=== PATIENT | male | born 1955 | race Two or more races ===

== ENCOUNTER 2018-04-21 00:56 | Inpatient (IN) | payer MEDICAID ==
[~2018-04-21] VITALS: Ht 165.1 cm; Wt 48.1 kg
[2018-04-21] VITALS (21 sets, daily range): BP systolic 73–130; BP diastolic 36–77
[~2018-04-21 00:56] MED LIST: LANTUS SOL100 UNIT/1 SUBQ
[2018-04-21] MEDS ORDERED: Morphine Sulfate 4mg/ml Inj (IV USE ONLY) IVP ONE (01:30)
--- NOTE | 2018-04-21 01:32 | Emergency Room Report ---
History of Present Illness General Chief Complaint: Flu Like Symptoms Source: Patient Present Illness HPI This is a 62-year-old male with a history of diabetes and high blood pressure. He presents with chief complaint of weakness and left leg pain. He had a hip fracture/femur fracture over a year ago. He has surgery done. Since then he said his been in pain. He complaining of pain to that area. He said Ultram is not helping. Pain is 9 out of 10. Worse with movement. Better with rest. No other complaint. No nausea no vomiting. Allergies: Coded Allergies: No Known Allergies (Unverified , 04/21/18) Patient History Past Medical History: see triage record, old chart reviewed, DM, HTN Past Surgical History: other Pertinent Family History: none Social History: Denies: smoking Immunizations: other Reviewed Nursing Documentation: PMH: Agreed; PSxH: Agreed Nursing Documentation-PMH Past Medical History: No History, Except For Hx Hypertension: Yes Hx Diabetes: Yes Review of Systems Eye: Denies: eye pain, blurred vision ENT: Denies: ear pain, nose congestion, throat swelling Respiratory: Denies: cough, shortness of breath Cardiovascular: Denies: chest pain, palpitations Gastrointestinal: Denies: abdominal pain, diarrhea, nausea, vomiting Musculoskeletal: Reports: joint pain, muscle pain; Denies: back pain Skin: Denies: rash Neurological: Denies: headache, numbness Endocrine: Denies: increased thirst, increased urine Hematologic/Lymphatic: Denies: easy bruising All Other Systems: negative except mentioned in HPI Physical Exam Vital Signs Date Time Temp Pulse Resp B/P (MAP) Pulse Ox O2 Delivery O2 Flow Rate FiO2 04/21/18 00:51 97.5 70 16 156/88 97 Room Air vitals with high blood pressure Sp02 EP Interpretation: reviewed, normal General Appearance: no apparent distress, alert, cachetic, Chronically Ill Head: normocephalic, atraumatic Eyes: bilateral eye PERRL, bilateral eye EOMI ENT: hearing grossly normal, normal pharynx Neck: full range of motion, supple, no meningismus Respiratory: chest non-tender, lungs clear, normal breath sounds Cardiovascular #1: regular rate, rhythm, no murmur Gastrointestinal: normal bowel sounds, non tender, no mass, no organomegaly, no bruit, non-distended Musculoskeletal: back normal, normal range of motion Psychiatric: mood/affect normal Skin: warm/dry Medical Decision Making Diagnostic Impression: Primary Impression: ARF (acute renal failure) Qualified Codes: N17.9 - Acute kidney failure, unspecified Additional Impressions: Weakness generalized Leg pain, left Metabolic acidosis ER Course History with generalize weakness. He has acute renal failure with metabolic acidosis. No evidence of hyperkalemia. No evidence of obvious infection. He looks very dehydrated. No urinary output with Torres. IV fluids given. Patient will be admitted for further workup. I contacted Dr. Cain for admission. Lab Results Impression labs with acute renal failure EKG Diagnostic Results Rate: normal Rhythm: NSR ST Segments: no acute changes Rhythm Strip Diag. Results Rhythm Strip Time: 03:26 EP Interpretation: yes Rate: 85 Rhythm: NSR, no PVC's, no ectopy Chest X-Ray Diagnostic Results Chest X-Ray Diagnostic Results : Chest X-Ray Ordered: Yes # of Views/Limited/Complete: 1 View Indication: Chest Pain EP Interpretation: Yes Interpretation: no consolidation, no effusion, no pneumothorax, no acute cardiopulmonary disease Impression: No acute disease Electronically Signed by: Demetri Douglass MD Last Vital Signs Date Time Temp Pulse Resp B/P (MAP) Pulse Ox O2 Delivery O2 Flow Rate FiO2 04/21/18 00:51 97.5 70 16 156/88 97 Room Air Status: improved Disposition: ADMITTED INPATIENT Condition: Serious Demetri Douglass MD Apr 21, 2018 01:32
[2018-04-21 01:35] LABS: BASOPHILS % (AUTO) 0.8 % (0.0-2.0); EOSINOPHILS % (AUTO) 0.9 % (0.0-3.0); HEMATOCRIT 30.8 % (42.0-52.0); HEMOGLOBIN 10.3 G/DL (14.2-18.0); LYMPHOCYTES % (AUTO) 8.4 % (20.0-45.0); MEAN CORPUSCULAR VOLUME 94 FL (80-99); NEUTROPHILS % (AUTO) 82.9 % (45.0-75.0); PLATELET COUNT 217 K/UL (150-450); RED BLOOD COUNT 3.29 M/UL (4.70-6.10); WHITE BLOOD COUNT 13.5 K/UL (4.8-10.8)
[2018-04-21 01:46] LABS: ANION GAP 18 mmol/L (5-15); BLOOD UREA NITROGEN 60 mg/dL (7-18); CALCIUM 8.8 MG/DL (8.5-10.1); CARBON DIOXIDE 10 MMOL/L (21-32); CHLORIDE 105 MMOL/L (98-107); CREATININE 3.4 MG/DL (0.55-1.30); POTASSIUM 4.7 MMOL/L (3.5-5.1); SODIUM 133 MMOL/L (136-145)
[2018-04-21] MEDS ORDERED: Acetaminophen 500mg (ES) tab ORAL PRN (05:00)
[2018-04-21] MEDS ORDERED: DOPamine 400mg/250ml 250 ML IV SCH (05:30)
--- NOTE | 2018-04-21 05:36 | Emergency Room Report ---
History of Present Illness General Chief Complaint: Flu Like Symptoms Source: Patient Present Illness Allergies: Coded Allergies: No Known Allergies (Unverified , 04/21/18) Nursing Documentation-[facility] Past Medical History: No History, Except For Hx Hypertension: Yes Hx Diabetes: Yes Physical Exam Vital Signs Date Time Temp Pulse Resp B/P (MAP) Pulse Ox O2 Delivery O2 Flow Rate FiO2 04/21/18 00:51 97.5 70 16 156/88 97 Room Air Procedures Critical Care Time Critical Care Time Critical care is mandated in this patient who presented with acute renal failure with hypotension. Patient require my urgent intervention to attenuate the risks of metabolic collapse which may lead to cardiovascular collapse and . Critical care time is 35 minutes excluding any reportable procedure. Critical care time included evaluation, multiple reevaluation, looking at old charts, interpreting laboratory and diagnostic data, discussing case with patient and family and consultants, and charting. Central Line Central Line : Consent: Verbal Central Line Lumen: triple Maximal Sterile Barrier Tech: yes cap, yes mask, yes sterile gown, yes sterile gloves, yes large sterile sheet, yes hand hygiene, yes chlorhexidine prep Central Line Postion: femoral (R) Anesthesia: Lidocaine cc's of anesthesia: 7 Complications: none Central Line Post Position: sutured, good blood return Attempts: One Patient Tolerated: Well Complications: None Progress I place a central line under sterile condition. Initially I wanted a place a internal jugular line but patient refused. He said he would agree to a femoral line. So I place a triple-lumen in the right femoral vein. Patient tolerated procedure without a problem. Medical Decision Making Diagnostic Impression: Primary Impression: ARF (acute renal failure) Qualified Codes: N17.9 - Acute kidney failure, unspecified Additional Impressions: Weakness generalized Metabolic acidosis Leg pain, left Hypovolemic shock ER Course Patient blood pressure continued to drop. No response with IV fluid. He remained with normal oxygenation at 100% on room air. Lungs are clear. I place a central line to start him on dopamine. Patient will be upgraded to ICU. Last Vital Signs Date Time Temp Pulse Resp B/P (MAP) Pulse Ox O2 Delivery O2 Flow Rate FiO2 04/21/18 05:30 76/43 04/21/18 02:02 97.5 04/21/18 01:52 70 16 Room Air 04/21/18 01:52 97 Disposition: ADMITTED INPATIENT Condition: Critical Referrals: NOT CHOSEN IPA/,REFERRING (PCP) Demetri Douglass MD Apr 21, 2018 05:36
[2018-04-21] MEDS ORDERED: Sodium Bicarbonate 150 ML in D5W 1000ml 1,000 ML IV SCH (05:45)
[2018-04-21] MEDS ORDERED: Sodium Bicarbonate 50ml Carp IV ONE (06:00)
[2018-04-21] MEDS ORDERED: Sodium Bicarbonate 8.4% 50ml Inj ONE (06:06)
[2018-04-21] MEDS ORDERED: Sodium Bicarbonate 50ml Carp ONE (06:08)
[2018-04-21] MEDS ORDERED: Morphine Sulfate 2mg/ml Inj(IV/IM USE ONLY) IVP ONE (06:30)
[2018-04-21] MEDS ORDERED: Morphine Sulfate 2mg/ml Inj(IV/IM USE ONLY) ONE ×2 (06:34→06:40)
[2018-04-21 10:13] LABS: HEMOGLOBIN 9.1 G/DL (14.2-18.0); MEAN CORPUSCULAR VOLUME 93 FL (80-99); PLATELET COUNT 166 K/UL (150-450); RED BLOOD COUNT 2.92 M/UL (4.70-6.10); RED CELL DISTRIBUTION WIDTH 12.5 % (11.6-14.8); WHITE BLOOD COUNT 11.8 K/UL (4.8-10.8)
--- NOTE | 2018-04-21 10:54 | Consultation ---
Consult Note Assessment/Plan DICT [id number] Lennox Mcallister MD Apr 21, 2018 10:54
[2018-04-21 11:06] LABS: ALANINE AMINOTRANSFERASE 93 U/L (12-78); ALBUMIN 3.4 G/DL (3.4-5.0); ALBUMIN/GLOBULIN RATIO 1.1 (1.0-2.7); ALKALINE PHOSPHATASE 271 U/L (46-116); ANION GAP 16 mmol/L (5-15); ASPARTATE AMINO TRANSFERASE 115 U/L (15-37); BILIRUBIN,TOTAL 0.9 MG/DL (0.2-1.0); BLOOD UREA NITROGEN 51 mg/dL (7-18); CALCIUM 7.9 MG/DL (8.5-10.1); CARBON DIOXIDE 12 MMOL/L (21-32); CHLORIDE 110 MMOL/L (98-107); CREATININE 2.6 MG/DL (0.55-1.30); POTASSIUM 4.3 MMOL/L (3.5-5.1); SODIUM 137 MMOL/L (136-145)
[2018-04-21] MEDS: NovoLOG Insulin Flexpen SUBQ SCH ×3 (11:30→21:00)
[2018-04-21] MEDS ORDERED: Levophed 4mg/4mL Inj IV ONE (11:48)
[2018-04-21] MEDS ORDERED: Vancomycin 1250mg/D5W 275ml IVPB SCH (12:00)
--- NOTE | 2018-04-21 12:20 | Diagnostic Imaging Report ---
Indication: Dyspnea Comparison: None A single view chest radiograph was obtained. Findings: Cardiomediastinal appearance is within normal limits for age. The lungs are clear. Pulmonary vascularity is appropriate. The diaphragmatic contour is smooth and costophrenic angles are sharp. No pleural effusions are identified. The bones are osteopenic. Impression: No acute findings
[2018-04-21] MEDS: Piperacillin/Tazobactam 3.375 GM in D5W 110 ML IVPB SCH ×2 (14:00→21:14)
--- NOTE | 2018-04-21 14:32 | Diagnostic Imaging Report ---
Indication:Abdominal pain Technique: Grayscale and duplex Doppler imaging of the abdomen performed. Comparison: None Findings: The gallbladder is moderately distended with the fairly marked gallbladder wall thickening and multiple stones. There is also likely a stone in the area of the cystic duct. The CBD is mildly dilated measuring 10 mm. There is evidence of a shadowing focus in the distal CBD region in the level of the head of the pancreas. Findings concerning for choledocholithiasis. Further evaluation of this with MRCP or ERCP is recommended. There is mild ascites present. The main portal vein is patent by Doppler examination. Urinary bladder is distended despite the fact that the patient has a Torres catheter. The Torres catheter is not visualized. Clinical evaluation of this is obviously needed. Some fullness of the collecting system noted at the level of the kidneys bilaterally. This may be on the basis of the distended urinary bladder. Right renal cyst is noted. Aorta is unremarkable. IMPRESSION: Distended urinary bladder. Torres catheter not visualized but present. Clinical evaluation is needed. Recommend removal of the Torres catheter and replacement. Mild pelvocaliectasis noted which is likely on the basis of the distended bladder. Suspected choledocholithiasis with the one or more stones in the distal common bile duct. Moderate biliary ductal dilatation demonstrated. Cholelithiasis with distention of the gallbladder and wall thickening. Cholecystitis not excluded.
--- NOTE | 2018-04-21 16:03 | Consultation ---
History of Present Illness General Date patient seen: Apr 21, 2018 Chief Complaint: Flu Like Symptoms Reason for Consultation: sepsis / cholecystitis Present Illness HPI 62 year old male with multiple medical comorbidities presented with feeling unwell, leg pain, and overall fatigue. Hypotensive, septic, abnormal lft's and labs. US ordered and noted cholecystitis and possible choledocholithiasis. Surgery called to evaluate. patient seen, chart reviewed, patient examined. does have intermittent abd discomfort. no f/c. nausea. no emesis. poor historian Allergies: Coded Allergies: No Known Allergies (Unverified , 04/21/18) Medication History Discontinued Medications Insulin Glargine (Lantus), Unknown Dose SUBQ BEDTIME, (Reported) Discontinued Reason: MD discontinued med Patient History Limited by: medical condition History Provided By: Medical Record, PMD Healthcare decision maker Resuscitation status Full Code Advanced Directive on File Past Medical/Surgical History Past Medical/Surgical History: (1) Acute cholecystitis (2) Hypovolemic shock (3) Weakness generalized (4) Metabolic acidosis (5) Leg pain, left (6) ARF (acute renal failure) (7) Gall bladder stones Review of Systems All Other Systems: negative except mentioned in HPI Physical Exam General Appearance: alert, mild distress Lines, tubes and drains: peripheral HEENT: mucous membranes moist Neck: normal inspection Respiratory/Chest: no respiratory distress, no accessory muscle use Cardiovascular/Chest: tachycardia Abdomen: soft, no organomegaly, no mass, tender Extremities: normal inspection Skin Exam: warm/dry Neurologic: alert, responsive Last 24 Hour Vital Signs Date Time Temp Pulse Resp B/P (MAP) Pulse Ox O2 Delivery O2 Flow Rate FiO2 04/21/18 12:05 97.5 98 17 91/42 100 Room Air 04/21/18 12:00 91/42 04/21/18 11:28 98 17 97/72 100 Room Air 04/21/18 11:00 114/54 04/21/18 10:08 118/67 04/21/18 10:08 97.5 102 14 118/67 100 Room Air 04/21/18 08:50 105 16 130/64 100 Room Air 04/21/18 08:50 130/64 04/21/18 07:45 97.5 104 14 124/54 100 Room Air 04/21/18 07:45 124/54 04/21/18 07:14 130/55 04/21/18 07:14 97.5 108 13 130/55 100 Room Air 04/21/18 07:05 97.5 04/21/18 06:58 97.5 107 18 128/56 97 Room Air 04/21/18 06:49 128/56 04/21/18 06:34 117/57 04/21/18 06:29 134/55 04/21/18 06:14 124/57 04/21/18 06:02 97.5 75 18 124/57 97 Room Air 04/21/18 05:59 130/56 04/21/18 05:41 90/51 04/21/18 05:30 76/43 04/21/18 05:00 97.5 75 17 73/43 97 Room Air 04/21/18 04:30 97.5 75 16 76/36 97 Room Air 04/21/18 02:20 97.5 77 16 87/50 97 Room Air 04/21/18 02:02 97.5 04/21/18 01:52 70 16 Room Air 04/21/18 01:52 97.5 75 16 87/69 97 Room Air 04/21/18 00:51 97.5 70 16 156/88 97 Room Air Intake and Output 04/20/18 04/21/18 19:00 07:00 Intake Total 1000 ml Balance 1000 ml Intake Oral 0 ml IV Total 1000 ml Laboratory Tests Test 04/21/18 00:55 04/21/18 10:00 04/21/18 12:15 White Blood Count 13.5 K/UL (4.8-10.8) H 11.8 K/UL (4.8-10.8) H Red Blood Count 3.29 M/UL (4.70-6.10) L 2.92 M/UL (4.70-6.10) L Hemoglobin 10.3 G/DL (14.2-18.0) L 9.1 G/DL (14.2-18.0) L Hematocrit 30.8 % (42.0-52.0) L 27.0 % (42.0-52.0) L Mean Corpuscular Volume 94 FL (80-99) 93 FL (80-99) Mean Corpuscular Hemoglobin 31.4 PG (27.0-31.0) H 31.2 PG (27.0-31.0) H Mean Corpuscular Hemoglobin Concent 33.5 G/DL (32.0-36.0) 33.8 G/DL (32.0-36.0) Red Cell Distribution Width 13.0 % (11.6-14.8) 12.5 % (11.6-14.8) Platelet Count 217 K/UL (150-450) 166 K/UL (150-450) Mean Platelet Volume 9.4 FL (6.5-10.1) 8.5 FL (6.5-10.1) Neutrophils (%) (Auto) 82.9 % (45.0-75.0) H % (45.0-75.0) Lymphocytes (%) (Auto) 8.4 % (20.0-45.0) L % (20.0-45.0) Monocytes (%) (Auto) 7.0 % (1.0-10.0) % (1.0-10.0) Eosinophils (%) (Auto) 0.9 % (0.0-3.0) % (0.0-3.0) Basophils (%) (Auto) 0.8 % (0.0-2.0) % (0.0-2.0) Sodium Level 133 MMOL/L (136-145) L 137 MMOL/L (136-145) Potassium Level 4.7 MMOL/L (3.5-5.1) 4.3 MMOL/L (3.5-5.1) Chloride Level 105 MMOL/L (98-107) 110 MMOL/L (98-107) H Carbon Dioxide Level 10 MMOL/L (21-32) L 12 MMOL/L (21-32) L Anion Gap 18 mmol/L (5-15) H 16 mmol/L (5-15) H Blood Urea Nitrogen 60 mg/dL (7-18) H 51 mg/dL (7-18) H Creatinine 3.4 MG/DL (0.55-1.30) H 2.6 MG/DL (0.55-1.30) H Estimat Glomerular Filtration Rate 18.4 mL/min (>60) 25.1 mL/min (>60) Glucose Level 148 MG/DL (74-106) H 178 MG/DL (74-106) H Calcium Level 8.8 MG/DL (8.5-10.1) 7.9 MG/DL (8.5-10.1) L Troponin I 0.000 ng/mL (0.000-0.056) 0.020 ng/mL (0.000-0.056) Serum Alcohol < 3 mg/dL Differential Total Cells Counted 100 Neutrophils % (Manual) 85 % (45-75) H Lymphocytes % (Manual) 6 % (20-45) L Monocytes % (Manual) 6 % (1-10) Eosinophils % (Manual) 1 % (0-3) Basophils % (Manual) 0 % (0-2) Band Neutrophils 2 % (0-8) Platelet Estimate Adequate Platelet Morphology Normal Red Blood Cell Morphology Normal Hemoglobin A1c 7.0 % (4.3-6.0) H Total Bilirubin 0.9 MG/DL (0.2-1.0) Aspartate Amino Transf (AST/SGOT) 115 U/L (15-37) H Alanine Aminotransferase (ALT/SGPT) 93 U/L (12-78) H Alkaline Phosphatase 271 U/L (46-116) H Total Protein 6.6 G/DL (6.4-8.2) Albumin 3.4 G/DL (3.4-5.0) Globulin 3.2 g/dL Albumin/Globulin Ratio 1.1 (1.0-2.7) Thyroid Stimulating Hormone (TSH) 0.797 uiU/mL (0.358-3.740) Cortisol Pending Lactic Acid Level 1.10 mmol/L (0.4-2.0) Height (Feet): 5 Height (Inches): 8.00 Weight (Pounds): 140 Medications Current Medications Medications (Trade) Dose Ordered Sig/Jamal Route PRN Reason Start Time Stop Time Status Last Admin Dose Admin Acetaminophen (Tylenol) 500 mg Q4H PRN ORAL Mild Pain/Temp > 100.5 04/21/18 05:00 05/21/18 04:59 Dextrose 1,000 ml @ 100 mls/hr Q10H IV 04/21/18 06:00 05/21/18 05:59 04/21/18 06:09 Dextrose (Dextrose 50%) 25 ml Q30M PRN IV Hypoglycemia 04/21/18 11:00 05/21/18 10:59 Dextrose (Dextrose 50%) 50 ml Q30M PRN IV Hypoglycemia 04/21/18 11:00 05/21/18 10:59 Dopamine HCl/ Dextrose 250 ml @ 0 mls/hr Q24H IV 04/21/18 05:30 05/21/18 05:29 04/21/18 05:30 Insulin Aspart (NovoLOG) BEFORE MEALS AND HS SUBQ 04/21/18 11:30 05/21/18 11:29 Norepinephrine Bitartrate 4 mg/ Dextrose 246 ml @ 7.38 mls/hr Q24H IV 04/21/18 12:00 05/21/18 11:59 04/21/18 12:00 Pantoprazole (Protonix) 40 mg DAILY IVP 04/22/18 09:00 05/22/18 08:59 Piperacillin Sod/ Tazobactam Sod 3.375 gm/Dextrose 110 ml @ 27.5 mls/hr EVERY 8 HOURS IVPB 04/21/18 14:00 04/26/18 13:59 Sodium Chloride 1,000 ml @ 80 mls/hr [id number] IV 04/21/18 06:00 05/21/18 05:59 Sodium Chloride 1,000 ml @ 150 mls/hr Q6H40M IV 04/21/18 11:00 05/21/18 10:59 Vancomycin HCl (Vanco rx to dose) 1 ea DAILY PRN MISC Per rx protocol 04/21/18 11:00 05/21/18 10:59 Assessment/Plan Problem List: (1) Acute cholecystitis Assessment & Plan: US with Distended urinary bladder. Torres catheter not visualized but present. Clinical evaluation is needed. Recommend removal of the Torres catheter and replacement. Mild pelvocaliectasis noted which is likely on the basis of the distended bladder. Suspected choledocholithiasis with the one or more stones in the distal common bile duct. Moderate biliary ductal dilatation demonstrated. Cholelithiasis with distention of the gallbladder and wall thickening. Leukocytosis Hypotensive shock Abnormal LFT's. Possible choledocholithiasis -NPO -IV fluids -IV Abx -MRCP ordered -Trend labs -thank you for this consult. will follow with recs. ICD Codes: K81.0 - Acute cholecystitis SNOMED: 93035520 (2) Hypovolemic shock ICD Codes: R57.1 - Hypovolemic shock SNOMED: [id number] Martin Sterling Apr 21, 2018 16:03
--- NOTE | 2018-04-21 17:00 | Consultation ---
DATE OF CONSULTATION: 04/21/2018 CRITICAL CARE CONSULTATION: CONSULTING PHYSICIAN: Lennox Mcallister M.D. REFERRING PHYSICIAN: Oksana Casey M.D. REASON FOR CONSULTATION: Critical care management. HISTORY OF PRESENT ILLNESS: The patient is a 62-year-old male with a history of diabetes, hypertension, vasculopathy, likely CKD who presented with generalized weakness and left leg pain. He had a hip fracture over a year ago and has had toe amputations and a TMA. Upon arrival to the emergency department, he was afebrile, but hypotensive. His laboratory evaluation was noticeable for a leukocytosis, anemia, abnormal BUN and creatinine. He is being treated for presumed sepsis. He has had no urine output. Per report, his chest x-ray was within normal limits though I have not been able to load the image on PACS myself. The patient remained hypotensive despite 3 L. Declined an IJ line, so agreed to a femoral line. A femoral central venous catheter was placed by the ER physician and he is currently on 2 mcg of norepinephrine. He feels his pain has improved. No other complaints. No fevers, chills, headaches, chest pain, nausea, vomiting, diarrhea, constipation, abdominal pain, or urinary complaints other than anuria. PAST MEDICAL HISTORY: 1. Diabetes. 2. Hypertension. 3. CKD. PAST SURGICAL HISTORY: TMAs and toe amputations as well as hip surgery. ALLERGIES: No known drug allergies. MEDICATIONS: Prior to admission medications unknown. SOCIAL HISTORY: Denies tobacco, alcohol, or drug use. FAMILY HISTORY: Noncontributory. REVIEW OF SYSTEMS: Unobtainable. PHYSICAL EXAMINATION: VITAL SIGNS: Temperature 97.5, pulse 104, blood pressure 122/54, respiratory rate 14, and saturating 100% on room air. GENERAL: He is a frail male appearing his stated age, in no distress HEENT: Normocephalic and atraumatic. Oropharynx is clear. Dry mucous membranes. NECK: Supple without lymphadenopathy. CHEST: Clear. HEART: Regular. ABDOMEN: Benign. EXTREMITIES: Evidence of rough turgor of skin and TMA and toe amputations contralaterally. LABORATORY AND DIAGNOSTIC DATA: White count 13.5, hemoglobin 10.3, platelet count 217. Sodium 133, potassium 4.7, chloride 105, bicarb 10, gap 18, BUN 60, creatinine 3.4, glucose 148. Alcohol less than 3. Urinalysis unavailable. Chest x-ray, unobtainable per report. ASSESSMENT: The patient is a 62-year-old male with a history of diabetes, hypertension, vasculopathy, likely CKD presenting with leg pain in the setting of dehydration and anion gap metabolic acidosis, likely sepsis. He is hypotensive with profound volume depletion. PROBLEM LIST: 1. Shock, hypovolemic. 2. Dehydration. 3. Likely sepsis. 4. Leg pain. 5. JONA likely on CKD. 6. Anion-gap metabolic acidosis. 7. Hyponatremia. 8. Leukocytosis. 9. Anemia. 10. Diabetes. 11. History of hypertension. 12. History of hip fracture. 13. History of vasculopathy. 14. Toe amputations and TMA. TREATMENT PLAN: 1. Aggressive IV fluid hydration. 2. Titrate pressors to keep mean arterial pressure above 60. 3. Would start broad-spectrum antibiotics (vancomycin and Zosyn). 4. Panculture. 5. Urinalysis once the patient is able to provide urine. 6. Duplex of the lower extremities. 7. Trend lactic acid and troponins. 8. Echocardiogram. 9. DVT prophylaxis heparin subcutaneous. 10. Swallow evaluation. 11. Monitor mental status closely. 12. If the patient stabilizes hemodynamically in the emergency room and is able to be weaned off of pressors with additional IV fluid hydration, he will be stable for step-down unit or telemetry. 60 minutes critical care time spent in the care of this patient. Lennox Mcallister M.D. DR: ROSMERY JOB#: [id number] CC:
--- NOTE | 2018-04-21 17:15 | Consultation ---
DATE OF CONSULTATION: 04/21/2017 INFECTIOUS DISEASE CONSULTATION CONSULTING PHYSICIAN: Thai Hale M.D. PRIMARY ATTENDING PHYSICIAN: Oksana Casey M.D. REASON FOR REQUEST: Sepsis. HISTORY OF PRESENT ILLNESS: The patient is a 62-year-old male admitted today from home complaining of weakness and pain in the left leg. The patient had a fall at home. In the hospital, it was discovered that the patient is hypotensive and tachycardic. The patient is admitted to intensive care unit, was on pressor, currently is off pressor. PAST MEDICAL HISTORY: Significant for diabetes mellitus and hypertension. 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 MEDICATIONS: Zosyn, vancomycin, norepinephrine, insulin, sodium chloride, Tylenol, and dopamine. ALLERGIES: No known drug allergies. SOCIAL HISTORY: Denies alcohol, drug abuse, or smoking. . REVIEW OF SYSTEMS: Generalized weakness, pain in the left lower extremity, and subjective fever, but afebrile in the hospital. No significant coughing. No nausea. No vomiting. No diarrhea. No problem passing urine, but urination is decreased. PHYSICAL EXAMINATION: VITAL SIGNS: Temperature 97.5, blood pressure 91/43, and pulse 98. GENERAL APPEARANCE: Seems to be thin. HEAD AND NECK: [place] conjunctiva. HEART: Normal rate. LUNGS: Clear. ABDOMEN: Soft and nontender. EXTREMITIES: He has no edema. Has right tarsometatarsal amputation and left big toe amputation. DIAGNOSTIC DATA: Chest x-ray showed no acute finding. WBC is 11.8 coming down from 13.5 at the time of admission, hemoglobin 9.1, hematocrit 27, and platelets is 166,000. Sodium 137, potassium 4.3, chloride 110, bicarb 12, BUN 51, and creatinine 2.6. Lactic acid is 7. Bilirubin 0.9. AST 115, ALT 93, and alkaline phosphatase 271. IMPRESSION: 1. Sepsis with tachycardia. 2. Hypotension. 3. Leukocytosis. Source is not clear. 4. The patient seems to have acute renal failure. 5. Elevated transaminase. 6. Diabetes mellitus. 7. Hypertension. 8. Lactic acidosis. RECOMMENDATIONS: We will continue broad-spectrum antibiotic with vancomycin and Zosyn for now. We will follow up the culture. We will order abdominal ultrasound to rule out urinary obstruction and liver disease. At the end of my exam, I thank Dr. Casey for involving me in the care of this patient. Thai Hale M.D. DR: JULIUS JOB#: [id number] CC:
--- NOTE | 2018-04-21 17:57 | Cardiology Report ---
APPROVED REPORT EKG Measurement Heart [id number] Normal sinus rhythm Septal infarct, age undetermined Abnormal ECG
[2018-04-21] MEDS: D5NS 1,000 ML IV SCH (18:30)
--- NOTE | 2018-04-21 18:40 | Consultation ---
Consult Note Consult Note asked to eval for high Cr This is a 62-year-old male with a history of diabetes and high blood pressure. He presents with chief complaint of weakness and left leg pain. He had a hip fracture/femur fracture over a year ago. He has surgery done. Since then he said his been in pain. He complaining of pain to that area. He said Ultram is not helping. Pain is 9 out of 10. Worse with movement. Better with rest. No other complaint. No nausea no vomiting. No Known Allergies (Unverified , 04/21/18) Past Medical History: No History, Except For Hx Hypertension: Yes Hx Diabetes: Yes in ICU Hypotensive data reviewed Assessment/Plan Hypovolemic Shock ATN Anemia Gall stones with cholecystitis left leg pain DM TMA foot, PVD HTN by history Torres Hydrate surgical and GI eval eval Antibiotics Orlin Berrios MD Apr 21, 2018 18:40
--- NOTE | 2018-04-21 21:25 | Cardiology Progress Note ---
Assessment/Plan Assessment/Plan The patient is seen and examined, full consult note will be dictated. Objective Last 24 Hour Vital Signs Date Time Temp Pulse Resp B/P (MAP) Pulse Ox O2 Delivery O2 Flow Rate FiO2 04/21/18 19:00 95 119/77 (91) 04/21/18 18:00 83 103/59 (74) 04/21/18 16:00 85 04/21/18 16:00 98.2 83 97/55 (69) 04/21/18 15:00 86 103/59 (74) 04/21/18 14:00 90 109/55 (73) 04/21/18 13:30 Room Air 04/21/18 13:00 98.0 93 99/57 (71) 04/21/18 12:11 Room Air 04/21/18 12:05 97.5 98 17 91/42 100 Room Air 04/21/18 12:00 91/42 04/21/18 11:28 98 17 97/72 100 Room Air 04/21/18 11:00 114/54 04/21/18 10:08 118/67 04/21/18 10:08 97.5 102 14 118/67 100 Room Air 04/21/18 08:50 105 16 130/64 100 Room Air 04/21/18 08:50 130/64 04/21/18 07:45 97.5 104 14 124/54 100 Room Air 04/21/18 07:45 124/54 04/21/18 07:14 130/55 04/21/18 07:14 97.5 108 13 130/55 100 Room Air 04/21/18 07:05 97.5 04/21/18 06:58 97.5 107 18 128/56 97 Room Air 04/21/18 06:49 128/56 04/21/18 06:34 117/57 04/21/18 06:29 134/55 04/21/18 06:14 124/57 04/21/18 06:02 97.5 75 18 124/57 97 Room Air 04/21/18 05:59 130/56 04/21/18 05:41 90/51 04/21/18 05:30 76/43 04/21/18 05:00 97.5 75 17 73/43 97 Room Air 04/21/18 04:30 97.5 75 16 76/36 97 Room Air 04/21/18 02:20 97.5 77 16 87/50 97 Room Air 04/21/18 02:02 97.5 04/21/18 01:52 70 16 Room Air 04/21/18 01:52 97.5 75 16 87/69 97 Room Air 04/21/18 00:51 97.5 70 16 156/88 97 Room Air Intake and Output 04/20/18 04/21/18 18:59 06:59 Intake Total 1000 ml Balance 1000 ml Intake Oral 0 ml IV Total 1000 ml Laboratory Tests Test 04/21/18 00:55 04/21/18 10:00 04/21/18 12:15 White Blood Count 13.5 K/UL (4.8-10.8) H 11.8 K/UL (4.8-10.8) H Red Blood Count 3.29 M/UL (4.70-6.10) L 2.92 M/UL (4.70-6.10) L Hemoglobin 10.3 G/DL (14.2-18.0) L 9.1 G/DL (14.2-18.0) L Hematocrit 30.8 % (42.0-52.0) L 27.0 % (42.0-52.0) L Mean Corpuscular Volume 94 FL (80-99) 93 FL (80-99) Mean Corpuscular Hemoglobin 31.4 PG (27.0-31.0) H 31.2 PG (27.0-31.0) H Mean Corpuscular Hemoglobin Concent 33.5 G/DL (32.0-36.0) 33.8 G/DL (32.0-36.0) Red Cell Distribution Width 13.0 % (11.6-14.8) 12.5 % (11.6-14.8) Platelet Count 217 K/UL (150-450) 166 K/UL (150-450) Mean Platelet Volume 9.4 FL (6.5-10.1) 8.5 FL (6.5-10.1) Neutrophils (%) (Auto) 82.9 % (45.0-75.0) H % (45.0-75.0) Lymphocytes (%) (Auto) 8.4 % (20.0-45.0) L % (20.0-45.0) Monocytes (%) (Auto) 7.0 % (1.0-10.0) % (1.0-10.0) Eosinophils (%) (Auto) 0.9 % (0.0-3.0) % (0.0-3.0) Basophils (%) (Auto) 0.8 % (0.0-2.0) % (0.0-2.0) Sodium Level 133 MMOL/L (136-145) L 137 MMOL/L (136-145) Potassium Level 4.7 MMOL/L (3.5-5.1) 4.3 MMOL/L (3.5-5.1) Chloride Level 105 MMOL/L (98-107) 110 MMOL/L (98-107) H Carbon Dioxide Level 10 MMOL/L (21-32) L 12 MMOL/L (21-32) L Anion Gap 18 mmol/L (5-15) H 16 mmol/L (5-15) H Blood Urea Nitrogen 60 mg/dL (7-18) H 51 mg/dL (7-18) H Creatinine 3.4 MG/DL (0.55-1.30) H 2.6 MG/DL (0.55-1.30) H Estimat Glomerular Filtration Rate 18.4 mL/min (>60) 25.1 mL/min (>60) Glucose Level 148 MG/DL (74-106) H 178 MG/DL (74-106) H Calcium Level 8.8 MG/DL (8.5-10.1) 7.9 MG/DL (8.5-10.1) L Troponin I 0.000 ng/mL (0.000-0.056) 0.020 ng/mL (0.000-0.056) Serum Alcohol < 3 mg/dL Differential Total Cells Counted 100 Neutrophils % (Manual) 85 % (45-75) H Lymphocytes % (Manual) 6 % (20-45) L Monocytes % (Manual) 6 % (1-10) Eosinophils % (Manual) 1 % (0-3) Basophils % (Manual) 0 % (0-2) Band Neutrophils 2 % (0-8) Platelet Estimate Adequate Platelet Morphology Normal Red Blood Cell Morphology Normal Hemoglobin A1c 7.0 % (4.3-6.0) H Total Bilirubin 0.9 MG/DL (0.2-1.0) Aspartate Amino Transf (AST/SGOT) 115 U/L (15-37) H Alanine Aminotransferase (ALT/SGPT) 93 U/L (12-78) H Alkaline Phosphatase 271 U/L (46-116) H C-Reactive Protein, Quantitative 2.2 mg/dL (0.00-0.90) H Total Protein 6.6 G/DL (6.4-8.2) Albumin 3.4 G/DL (3.4-5.0) Globulin 3.2 g/dL Albumin/Globulin Ratio 1.1 (1.0-2.7) Thyroid Stimulating Hormone (TSH) 0.797 uiU/mL (0.358-3.740) Cortisol Pending Lactic Acid Level 1.10 mmol/L (0.4-2.0) Alvaro Hargrove MD Apr 21, 2018 21:25
[2018-04-22] VITALS (24 sets, daily range): BP systolic 89–117; BP diastolic 38–60
--- NOTE | 2018-04-22 00:15 | History and Physical Report ---
DATE OF ADMISSION: 04/21/2018 NOTE: "POOR AUDIO QUALITY" HISTORY OF PRESENT ILLNESS: The patient is admitted to ICU for hypotensive getting IV boluses and acute renal failure had started as well. Denies chills. Denies nausea or vomiting and did have diarrhea. Also, complaining of foot pain. PAST MEDICAL HISTORY: No medical problems that he is complaining of. 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 ALLERGIES: No known allergies. MEDICATIONS: None. FAMILY HISTORY: Noncontributory. SOCIAL HISTORY: Denies smoking, alcohol, or illicit drugs. REVIEW OF SYSTEMS: HEENT: Denies headaches. RESPIRATORY: Denies shortness of breath. Denies cough. CARDIOVASCULAR: Denies chest pain. No orthopnea. GASTROINTESTINAL: Reports diarrhea and abdominal pain. Does have some bouts of vomiting. EXTREMITIES: Denies pain in lower extremities. CENTRAL NERVOUS SYSTEM: No change in vision or speech pattern. PHYSICAL EXAMINATION: VITAL SIGNS: Temperature 98.2, pulse is 83, and blood pressure 97/55. HEENT: PERRLA. NECK: Supple. No lymphadenopathy. CHEST: Clear to auscultation. CARDIOVASCULAR: Regular rate and rhythm. No murmurs or extra sounds. GASTROINTESTINAL: Soft, nontender, and nondistended. No organomegaly. EXTREMITIES: The patient is on cachectic side. Reflexes on both sides and moves extremities. LABORATORY DATA: WBC of 13.5, hemoglobin 10.3, and platelets 317,000. ASSESSMENT: Acute renal failure despite fluid challenges. I feel this is most likely due to renal failure, diarrhea, vomiting, and foot pain. I have consulted Dr. Hargrove, Dr. Berrios, Dr. Mcallister, and Dr. Thai Hale of Infectious Disease. IV antibiotics recommended per Dr. Thai Hale and we will have Dr. Berrios and Dr. Hargrove to help with fluid management as well as further management of the hypertension and with acute renal failure. Oksana Casey M.D. DR: MECHELLE JOB#: [id number] CC:
[2018-04-22] MEDS: D5NS 1,000 ML IV SCH ×2 (01:58→07:50)
[2018-04-22] MEDS: NovoLOG Insulin Flexpen SUBQ SCH ×4 (05:38→21:00)
[2018-04-22] MEDS: Piperacillin/Tazobactam 3.375 GM in D5W 110 ML IVPB SCH ×3 (05:39→21:50)
[2018-04-22 05:48] LABS: HEMATOCRIT 23.2 % (42.0-52.0); HEMOGLOBIN 7.9 G/DL (14.2-18.0); MEAN CORPUSCULAR VOLUME 94 FL (80-99); PLATELET COUNT 131 K/UL (150-450); RED BLOOD COUNT 2.48 M/UL (4.70-6.10); RED CELL DISTRIBUTION WIDTH 13.1 % (11.6-14.8); WHITE BLOOD COUNT 11.7 K/UL (4.8-10.8)
[2018-04-22 05:53] LABS: INR 1.4 (0.9-1.1)
[2018-04-22 06:04] LABS: BILIRUBIN, URINE NEGATIVE (NEGATIVE); GLUCOSE, URINE (UA) NEGATIVE (NEGATIVE); KETONES,URINE NEGATIVE (NEGATIVE); NITRITE,URINE NEGATIVE (NEGATIVE); PH,URINE 5 (4.5-8.0); PROTEIN,URINE 3+ (NEGATIVE); UROBILINOGEN,URINE NORMAL MG/DL (0.0-1.0)
[2018-04-22 06:15] LABS: APPEARANCE,URINE CLOUDY; COLOR,URINE YELLOW; LEUKOCYTE ESTERASE ,URINE 2+ (NEGATIVE)
[2018-04-22 06:39] LABS: ALANINE AMINOTRANSFERASE 62 U/L (12-78); ALBUMIN 2.6 G/DL (3.4-5.0); ALBUMIN/GLOBULIN RATIO 0.9 (1.0-2.7); ALKALINE PHOSPHATASE 188 U/L (46-116); ANION GAP 12 mmol/L (5-15); ASPARTATE AMINO TRANSFERASE 77 U/L (15-37); BILIRUBIN,TOTAL 0.4 MG/DL (0.2-1.0); BLOOD UREA NITROGEN 46 mg/dL (7-18); CALCIUM 7.5 MG/DL (8.5-10.1); CARBON DIOXIDE 14 MMOL/L (21-32); CHLORIDE 113 MMOL/L (98-107); CHOLESTEROL 77 MG/DL (< 200); CREATININE 2.2 MG/DL (0.55-1.30); FERRITIN 285 NG/ML (8-388); HDL CHOLESTEROL 44 MG/DL (40-60); POTASSIUM 3.9 MMOL/L (3.5-5.1); SODIUM 139 MMOL/L (136-145); TRIGLYCERIDES 55 MG/DL (30-150)
[2018-04-22 06:40] LABS: % IRON SATURATION 19 % (15-50); IRON 27 ug/dL (50-175); TOTAL IRON BINDING CAPACITY 145 ug/dL (250-450)
[2018-04-22 06:42] LABS: AMYLASE 990 U/L (25-115)
[2018-04-22 06:50] LABS: CREATINE KINASE 1723 U/L (26-308); GAMMA GLUTAMYL TRANSPEPTIDASE 134 U/L (5-85); PHOSPHORUS 4.1 MG/DL (2.5-4.9)
--- NOTE | 2018-04-22 08:44 | Pulmonolgy Critical Care Note ---
Critical Care - Asmt/Plan Problems: (1) Anemia (2) Dehydration (3) JONA (acute kidney injury) (4) Choledocholithiasis with acute cholecystitis (5) Gallstone pancreatitis (6) Metabolic acidosis (7) Hypovolemic shock (8) Leg pain, left Assessment/Plan: ASSESSMENT: The patient is a 62-year-old male with a history of diabetes, hypertension, vasculopathy, likely CKD presenting with leg pain in the setting of dehydration and anion gap metabolic acidosis, likely sepsis. He is hypotensive with profound volume depletion. His w/u is consistent with gallstone pancreatitis and likely acute cholecystitis/choledocholithiasis PROBLEM LIST: 1. Shock, hypovolemic. 2. Gallstone pancreatitis 3. Acute cholelithiasis, possible choledocholithiasis 4. Leg pain. 5. JONA likely on CKD. 6. Anion-gap metabolic acidosis. 7. Leukocytosis. 8. Anemia. 9. Diabetes. 10. History of hypertension. 11. History of hip fracture. 12. History of vasculopathy. 13. Toe amputations and TMA. TREATMENT PLAN: 1. Aggressive IV fluid hydration. 2. Titrate NE to keep mean arterial pressure above 60. 3. Continue broad-spectrum antibiotics (vancomycin and Zosyn D #2). 4. F/U Cx's 5. Bowel rest, NPO, IVF 6. Duplex of the lower extremities negative, arterial US pending still 7. F/U surgery recs, D/W Dr. Sterling: medical management for now 8. Monitor volumes and renal function 9. DVT prophylaxis heparin subcutaneous. 10. SSI, monitor BS 11. FC CCT 40 Respiratory: monitor respiratory rate Cardiac: continue pressors Renal: keep IV fluid Infectious Disease: continue antibiotics Gastrointestinal: hold feedings Endocrine: monitor blood sugar, continue sliding scale insulin Hematologic: monitor H/H Neurologic: keep patient comfortable Prophylaxis: Protonix, Heparin Disposition: keep in ICU Time Spent (Minutes): 40 Notes Reviewed: bid analyst, renal, other - Surgery Discussed with: nurses, consultants Critical Care - Objective Last 24 Hour Vital Signs Date Time Temp Pulse Resp B/P (MAP) Pulse Ox O2 Delivery O2 Flow Rate FiO2 04/22/18 06:00 70 15 89/38 (55) 100 04/22/18 05:00 97.9 72 16 89/52 (64) 100 04/22/18 04:00 72 2/7/19 04:00 Room Air 04/22/18 04:00 73 15 97/53 (68) 100 04/22/18 03:00 68 16 101/46 (64) 99 04/22/18 02:00 72 14 96/50 (65) 99 04/22/18 01:00 98.4 73 14 96/55 (69) 100 04/22/18 00:00 76 15 92/47 (62) 100 04/22/18 00:00 76 04/22/18 00:00 Room Air 04/21/18 23:00 77 15 94/42 (59) 100 04/21/18 22:00 78 14 89/41 (57) 100 04/21/18 21:00 78 16 97/59 (72) 100 04/21/18 20:00 79 04/21/18 20:00 98.5 80 16 105/53 (70) 100 04/21/18 20:00 Room Air 04/21/18 19:00 95 119/77 (91) 04/21/18 18:00 83 103/59 (74) 04/21/18 16:00 85 04/21/18 16:00 98.2 83 97/55 (69) 04/21/18 15:00 86 103/59 (74) 04/21/18 14:00 90 109/55 (73) 04/21/18 13:30 Room Air 04/21/18 13:00 98.0 93 99/57 (71) 04/21/18 12:11 Room Air 04/21/18 12:05 97.5 98 17 91/42 100 Room Air 04/21/18 12:00 91/42 04/21/18 11:28 98 17 97/72 100 Room Air 04/21/18 11:00 114/54 04/21/18 10:08 118/67 04/21/18 10:08 97.5 102 14 118/67 100 Room Air 04/21/18 08:50 105 16 130/64 100 Room Air 04/21/18 08:50 130/64 Status: awake Condition: improving HEENT: atraumatic, normocephalic Lungs: clear Heart: HR/BP unstable Abdomen: soft, non-tender, active bowel sounds Extremities: no C/C/E, other - toe amps and TMA Accucheck: 201 Blood Sugars: BS not controlled Critical Care - Subjective ROS Limited/Unobtainable: Yes ICU Day: 2 Intubation Day: N/A Interval Events: GS panc, elevated lip/jennifer, Cr better Condition: critical IV Access: central EKG Rhythm: Sinus Rhythm Sputum Amount: None Fluids: D5NS@150 Drips: NE@5 I&O: Intake and Output 04/21/18 04/22/18 19:00 07:00 Intake Total 1737.5 ml Output Total 100 ml Balance 1637.5 ml IV Total 1737.5 ml Output Urine Total 100 ml # Voids 1 Subjective: Better, less pain, no F/C, no CP, no SOB Labs: Laboratory Tests Test 04/21/18 10:00 04/21/18 12:15 04/22/18 03:25 04/22/18 05:00 White Blood Count 11.8 K/UL (4.8-10.8) H 11.7 K/UL (4.8-10.8) H Red Blood Count 2.92 M/UL (4.70-6.10) L 2.48 M/UL (4.70-6.10) L Hemoglobin 9.1 G/DL (14.2-18.0) L 7.9 G/DL (14.2-18.0) L Hematocrit 27.0 % (42.0-52.0) L 23.2 % (42.0-52.0) L Mean Corpuscular Volume 93 FL (80-99) 94 FL (80-99) Mean Corpuscular Hemoglobin 31.2 PG (27.0-31.0) H 31.8 PG (27.0-31.0) H Mean Corpuscular Hemoglobin Concent 33.8 G/DL (32.0-36.0) 33.9 G/DL (32.0-36.0) Red Cell Distribution Width 12.5 % (11.6-14.8) 13.1 % (11.6-14.8) Platelet Count 166 K/UL (150-450) 131 K/UL (150-450) L Mean Platelet Volume 8.5 FL (6.5-10.1) 9.6 FL (6.5-10.1) Neutrophils (%) (Auto) % (45.0-75.0) % (45.0-75.0) Lymphocytes (%) (Auto) % (20.0-45.0) % (20.0-45.0) Monocytes (%) (Auto) % (1.0-10.0) % (1.0-10.0) Eosinophils (%) (Auto) % (0.0-3.0) % (0.0-3.0) Basophils (%) (Auto) % (0.0-2.0) % (0.0-2.0) Differential Total Cells Counted 100 Neutrophils % (Manual) 85 % (45-75) H Pending Lymphocytes % (Manual) 6 % (20-45) L Pending Monocytes % (Manual) 6 % (1-10) Eosinophils % (Manual) 1 % (0-3) Basophils % (Manual) 0 % (0-2) Band Neutrophils 2 % (0-8) Platelet Estimate Adequate Pending Platelet Morphology Normal Pending Red Blood Cell Morphology Normal Sodium Level 137 MMOL/L (136-145) 139 MMOL/L (136-145) Potassium Level 4.3 MMOL/L (3.5-5.1) 3.9 MMOL/L (3.5-5.1) Chloride Level 110 MMOL/L (98-107) H 113 MMOL/L (98-107) H Carbon Dioxide Level 12 MMOL/L (21-32) L 14 MMOL/L (21-32) L Anion Gap 16 mmol/L (5-15) H 12 mmol/L (5-15) Blood Urea Nitrogen 51 mg/dL (7-18) H 46 mg/dL (7-18) H Creatinine 2.6 MG/DL (0.55-1.30) H 2.2 MG/DL (0.55-1.30) H Estimat Glomerular Filtration Rate 25.1 mL/min (>60) 30.5 mL/min (>60) Glucose Level 178 MG/DL (74-106) H 193 MG/DL (74-106) H Hemoglobin A1c 7.0 % (4.3-6.0) H Calcium Level 7.9 MG/DL (8.5-10.1) L 7.5 MG/DL (8.5-10.1) L Total Bilirubin 0.9 MG/DL (0.2-1.0) 0.4 MG/DL (0.2-1.0) Aspartate Amino Transf (AST/SGOT) 115 U/L (15-37) H 77 U/L (15-37) H Alanine Aminotransferase (ALT/SGPT) 93 U/L (12-78) H 62 U/L (12-78) Alkaline Phosphatase 271 U/L (46-116) H 188 U/L (46-116) H Troponin I 0.020 ng/mL (0.000-0.056) C-Reactive Protein, Quantitative 2.2 mg/dL (0.00-0.90) H Total Protein 6.6 G/DL (6.4-8.2) 5.6 G/DL (6.4-8.2) L Albumin 3.4 G/DL (3.4-5.0) 2.6 G/DL (3.4-5.0) L Globulin 3.2 g/dL 3.0 g/dL Albumin/Globulin Ratio 1.1 (1.0-2.7) 0.9 (1.0-2.7) L Thyroid Stimulating Hormone (TSH) 0.797 uiU/mL (0.358-3.740) Cortisol Pending Lactic Acid Level 1.10 mmol/L (0.4-2.0) Urine Color Yellow Urine Appearance Cloudy Urine pH 5 (4.5-8.0) Urine Specific [place] 1.015 (1.005-1.035) Urine Protein 3+ (NEGATIVE) H Urine Glucose (UA) Negative (NEGATIVE) Urine Ketones Negative (NEGATIVE) Urine Blood 5+ (NEGATIVE) H Urine Nitrite Negative (NEGATIVE) Urine Bilirubin Negative (NEGATIVE) Urine Urobilinogen Normal MG/DL (0.0-1.0) Urine Leukocyte Esterase 2+ (NEGATIVE) H Urine RBC 40-60 /HPF (0 - 0) H Urine WBC 30-40 /HPF (0 - 0) H Urine Squamous Epithelial Cells None /LPF (NONE/OCC) Urine Amorphous Sediment Moderate /LPF (NONE) H Urine Bacteria Moderate /HPF (NONE) H Urine Coarse Granular Casts 0-2 /LPF (NONE) H Urine Opiates Screen Positive (NEGATIVE) H Urine Barbiturates Screen Negative (NEGATIVE) Phencyclidine (PCP) Screen Negative (NEGATIVE) Urine Amphetamines Screen Negative (NEGATIVE) Urine Benzodiazepines Screen Negative (NEGATIVE) Urine Cocaine Screen Negative (NEGATIVE) Urine Marijuana (THC) Screen Negative (NEGATIVE) Prothrombin Time 14.2 SEC (9.30-11.50) H Prothromb Time International Ratio 1.4 (0.9-1.1) H Activated Partial Thromboplast Time 45 SEC (23-33) H Uric Acid 6.0 MG/DL (2.6-7.2) Phosphorus Level 4.1 MG/DL (2.5-4.9) Magnesium Level 2.2 MG/DL (1.8-2.4) Iron Level 27 ug/dL (50-175) L Total Iron Binding Capacity 145 ug/dL (250-450) L Percent Iron Saturation 19 % (15-50) Unsaturated Iron Binding 118 ug/dL (112-346) Ferritin 285 NG/ML (8-388) Gamma Glutamyl Transpeptidase 134 U/L (5-85) H Total Creatine Kinase 1723 U/L (26-308) H Pro-B-Type Natriuretic Peptide 7052 pg/mL (0-125) H Triglycerides Level 55 MG/DL (30-150) Cholesterol Level 77 MG/DL (< 200) LDL Cholesterol 23 mg/dL (<100) HDL Cholesterol 44 MG/DL (40-60) Cholesterol/HDL Ratio 1.8 (3.3-4.4) L Amylase Level 990 U/L (25-115) *H Lipase > 2000 U/L (73-393) H Vitamin B12 Level 374 PG/ML (193-986) Folate 5.0 NG/ML (8.6-58.9) L Cortisol AM Sample Pending Lennox Mcallister MD Apr 22, 2018 08:44
[2018-04-22] MEDS: Pantoprazole Inj IVP SCH (09:05)
--- NOTE | 2018-04-22 09:14 | Diagnostic Imaging Report ---
Indication: Abdominal pain. Cholelithiasis and choledocholithiasis Technique: MRI of the abdomen was performed in a 1.5 Maria Esther magnet. Pulse sequences obtained include coronal and axial T2 single shot fast spin echo breathhold and respiratory gated coronal T2 3-D M.R.C.P.; this data set was displayed in different projections or MIPs. In addition, multiple coronal oblique thin T2 weighted, fat saturated SE sequences obtained through the CBD. Comparison: Ultrasound 04/21/2018 Findings: The study is severely degraded by motion. The MRCP portion of the examination nondiagnostic. The T2-weighted sequences confirm presence of moderate biliary ductal dilatation both within the liver and the CBD, dilated up to about 13 mm. One or 2 images show at a minimum the 2 stones in the CBD. There may be more stones in the CBD but the evaluation is very limited. There are multiple stones in the gallbladder which is distended. There is mild gallbladder wall thickening. Trace of fluid noted in the upper abdomen surrounding the liver. There is a right renal cyst. There may be a small left renal cyst. Trace bilateral pleural effusions are noted. IMPRESSION: Significantly limited evaluation due to motion. Multiple stones suspected within the CBD. Moderate biliary ductal dilatation noted. Multiple stones in the gallbladder. Cholecystitis not excluded.
--- NOTE | 2018-04-22 12:42 | Infectious Diseases Prog Note ---
Assessment/Plan Assessment/Plan A; 1. Sepsis 2.Cholelithiasis/Choledocholithiasis 3. Leukocytosis. Source is not clear. 4. The patient seems to have acute renal failure. 5. Elevated transaminase. 6. Diabetes mellitus. 7. Hypertension. 8. Lactic acidosis. 9. Pancreatitis P: Continue Zosyn Disconyinue Vancomycin Subjective ROS Limited/Unobtainable: No Constitutional: Reports: no symptoms Respiratory: Reports: no symptoms Gastrointestinal/Abdominal: Reports: no symptoms, other - NPO Genitourinary: Reports: no symptoms Allergies: Coded Allergies: No Known Allergies (Unverified , 04/21/18) Objective Vital Signs Last 24 Hour Vital Signs Date Time Temp Pulse Resp B/P (MAP) Pulse Ox O2 Delivery O2 Flow Rate FiO2 04/22/18 06:00 70 15 89/38 (55) 100 04/22/18 05:00 97.9 72 16 89/52 (64) 100 04/22/18 04:00 72 04/22/18 04:00 Room Air 04/22/18 04:00 73 15 97/53 (68) 100 04/22/18 03:00 68 16 101/46 (64) 99 04/22/18 02:00 72 14 96/50 (65) 99 04/22/18 01:00 98.4 73 14 96/55 (69) 100 04/22/18 00:00 76 15 92/47 (62) 100 04/22/18 00:00 76 04/22/18 00:00 Room Air 04/21/18 23:00 77 15 94/42 (59) 100 04/21/18 22:00 78 14 89/41 (57) 100 04/21/18 21:00 78 16 97/59 (72) 100 04/21/18 20:00 79 04/21/18 20:00 98.5 80 16 105/53 (70) 100 04/21/18 20:00 Room Air 04/21/18 19:00 95 119/77 (91) 04/21/18 18:00 83 103/59 (74) 04/21/18 16:00 85 04/21/18 16:00 98.2 83 97/55 (69) 04/21/18 15:00 86 103/59 (74) 04/21/18 14:00 90 109/55 (73) 2/6/19 13:30 Room Air 04/21/18 13:00 98.0 93 99/57 (71) Height (Feet): 5 Height (Inches): 6.00 Weight (Pounds): 140 General Appearance: no acute distress HEENT: mucous membranes moist Respiratory/Chest: lungs clear Cardiovascular: normal rate Abdomen: soft, non tender Extremities: no edema, other - left big toe amputation, R TM amputation Neurologic/Psychiatric: alert, responsive Microbiology Date/Time Source Procedure Growth Status 04/21/18 07:15 Rectum VRE Culture Pending Resulted 04/21/18 07:15 Rectum - Preliminary Resulted Laboratory Tests Test 04/22/18 03:25 04/22/18 05:00 Urine Color Yellow Urine Appearance Cloudy Urine pH 5 (4.5-8.0) Urine Specific [place] 1.015 (1.005-1.035) Urine Protein 3+ (NEGATIVE) H Urine Glucose (UA) Negative (NEGATIVE) Urine Ketones Negative (NEGATIVE) Urine Blood 5+ (NEGATIVE) H Urine Nitrite Negative (NEGATIVE) Urine Bilirubin Negative (NEGATIVE) Urine Urobilinogen Normal MG/DL (0.0-1.0) Urine Leukocyte Esterase 2+ (NEGATIVE) H Urine RBC 40-60 /HPF (0 - 0) H Urine WBC 30-40 /HPF (0 - 0) H Urine Squamous Epithelial Cells None /LPF (NONE/OCC) Urine Amorphous Sediment Moderate /LPF (NONE) H Urine Bacteria Moderate /HPF (NONE) H Urine Coarse Granular Casts 0-2 /LPF (NONE) H Urine Opiates Screen Positive (NEGATIVE) H Urine Barbiturates Screen Negative (NEGATIVE) Phencyclidine (PCP) Screen Negative (NEGATIVE) Urine Amphetamines Screen Negative (NEGATIVE) Urine Benzodiazepines Screen Negative (NEGATIVE) Urine Cocaine Screen Negative (NEGATIVE) Urine Marijuana (THC) Screen Negative (NEGATIVE) White Blood Count 11.7 K/UL (4.8-10.8) H Red Blood Count 2.48 M/UL (4.70-6.10) L Hemoglobin 7.9 G/DL (14.2-18.0) L Hematocrit 23.2 % (42.0-52.0) L Mean Corpuscular Volume 94 FL (80-99) Mean Corpuscular Hemoglobin 31.8 PG (27.0-31.0) H Mean Corpuscular Hemoglobin Concent 33.9 G/DL (32.0-36.0) Red Cell Distribution Width 13.1 % (11.6-14.8) Platelet Count 131 K/UL (150-450) L Mean Platelet Volume 9.6 FL (6.5-10.1) Neutrophils (%) (Auto) % (45.0-75.0) Lymphocytes (%) (Auto) % (20.0-45.0) Monocytes (%) (Auto) % (1.0-10.0) Eosinophils (%) (Auto) % (0.0-3.0) Basophils (%) (Auto) % (0.0-2.0) Differential Total Cells Counted 100 Neutrophils % (Manual) 82 % (45-75) H Lymphocytes % (Manual) 9 % (20-45) L Monocytes % (Manual) 8 % (1-10) Eosinophils % (Manual) 1 % (0-3) Basophils % (Manual) 0 % (0-2) Band Neutrophils 0 % (0-8) Platelet Estimate Decreased L Platelet Morphology Normal Red Blood Cell Morphology Normal Prothrombin Time 14.2 SEC (9.30-11.50) H Prothromb Time International Ratio 1.4 (0.9-1.1) H Activated Partial Thromboplast Time 45 SEC (23-33) H Sodium Level 139 MMOL/L (136-145) Potassium Level 3.9 MMOL/L (3.5-5.1) Chloride Level 113 MMOL/L (98-107) H Carbon Dioxide Level 14 MMOL/L (21-32) L Anion Gap 12 mmol/L (5-15) Blood Urea Nitrogen 46 mg/dL (7-18) H Creatinine 2.2 MG/DL (0.55-1.30) H Estimat Glomerular Filtration Rate 30.5 mL/min (>60) Glucose Level 193 MG/DL (74-106) H Uric Acid 6.0 MG/DL (2.6-7.2) Calcium Level 7.5 MG/DL (8.5-10.1) L Phosphorus Level 4.1 MG/DL (2.5-4.9) Magnesium Level 2.2 MG/DL (1.8-2.4) Iron Level 27 ug/dL (50-175) L Total Iron Binding Capacity 145 ug/dL (250-450) L Percent Iron Saturation 19 % (15-50) Unsaturated Iron Binding 118 ug/dL (112-346) Ferritin 285 NG/ML (8-388) Total Bilirubin 0.4 MG/DL (0.2-1.0) Gamma Glutamyl Transpeptidase 134 U/L (5-85) H Aspartate Amino Transf (AST/SGOT) 77 U/L (15-37) H Alanine Aminotransferase (ALT/SGPT) 62 U/L (12-78) Alkaline Phosphatase 188 U/L (46-116) H Total Creatine Kinase 1723 U/L (26-308) H Pro-B-Type Natriuretic Peptide 7052 pg/mL (0-125) H Total Protein 5.6 G/DL (6.4-8.2) L Albumin 2.6 G/DL (3.4-5.0) L Globulin 3.0 g/dL Albumin/Globulin Ratio 0.9 (1.0-2.7) L Triglycerides Level 55 MG/DL (30-150) Cholesterol Level 77 MG/DL (< 200) LDL Cholesterol 23 mg/dL (<100) HDL Cholesterol 44 MG/DL (40-60) Cholesterol/HDL Ratio 1.8 (3.3-4.4) L Amylase Level 990 U/L (25-115) *H Lipase > 2000 U/L (73-393) H Vitamin B12 Level 374 PG/ML (193-986) Folate 5.0 NG/ML (8.6-58.9) L Cortisol AM Sample Pending Current Medications Medications (Trade) Dose Ordered Sig/Jamal Route PRN Reason Start Time Stop Time Status Last Admin Dose Admin Acetaminophen (Tylenol) 500 mg Q4H PRN ORAL Mild Pain/Temp > 100.5 04/21/18 05:00 05/21/18 04:59 Chlorhexidine Gluconate (Jen-Hex 2%) 1 applic DAILY@2000 TOPIC 04/22/18 20:00 05/22/18 19:59 Dextrose (Dextrose 50%) 25 ml Q30M PRN IV Hypoglycemia 04/21/18 11:00 05/21/18 10:59 Dextrose (Dextrose 50%) 50 ml Q30M PRN IV Hypoglycemia 04/21/18 11:00 05/21/18 10:59 Insulin Aspart (NovoLOG) BEFORE MEALS AND HS SUBQ 04/21/18 11:30 05/21/18 11:29 Norepinephrine Bitartrate 4 mg/ Dextrose 246 ml @ 7.38 mls/hr Q24H IV 04/21/18 12:00 05/21/18 11:59 04/21/18 12:00 Pantoprazole (Protonix) 40 mg DAILY IVP 04/22/18 09:00 05/22/18 08:59 04/22/18 09:05 Piperacillin Sod/ Tazobactam Sod 3.375 gm/Dextrose 110 ml @ 27.5 mls/hr EVERY 8 HOURS IVPB 04/21/18 14:00 04/26/18 13:59 04/22/18 05:39 Sodium Chloride 1,000 ml @ 150 mls/hr Q6H40M IV 04/22/18 09:15 05/22/18 09:14 04/22/18 09:15 Vancomycin HCl (Vanco rx to dose) 1 ea DAILY PRN MISC Per rx protocol 04/21/18 11:00 05/21/18 10:59 Thai Hale MD Apr 22, 2018 12:42
--- NOTE | 2018-04-22 15:56 | Diagnostic Imaging Report ---
APPROVED REPORT CPT Code: 61753 Symptoms Claudication : BILATERAL: Common femoral artery waveform analysis is within normal limits at rest. Color flow duplex sonography reveals patency of the superficial femoral, popliteal, and tibial arteries. There is no evidence of stenosis or occlusion within these segments. Doppler tibial artery waveform analysis is compatible with minimal ischemia bilaterally. Color flow duplex sonography reveals minimal calcification throughout the common femoral, superficial femoral, and popliteal arteries.The posterior tibial, anterior tibial and dorsalis pedis arteries are also minimally calcified. The tibioperoneal trunks were not well visualized.
--- NOTE | 2018-04-22 15:57 | Diagnostic Imaging Report ---
APPROVED REPORT CPT Code: 85232 Present Symptoms Lower Extremity Pain: BILATERAL: Imaging reveals a patent deep venous system bilaterally. There is no evidence of thrombus within the femoral, popliteal or tibial segments. The greater saphenous veins are also within normal limits. Doppler indicates normal spontaneous flow within these segments. Noted a PICC line in right common femoral vein.
--- NOTE | 2018-04-22 17:12 | Nephrology Progress Note ---
Assessment/Plan Problem List: (1) JONA (acute kidney injury) Assessment: Cr lowering (2) Gallstone pancreatitis (3) Anemia (4) Dehydration (5) Hypovolemic shock (6) Diabetes Assessment: with elevated HgbA1c Plan Hydrate- Monitor renal parameters Monitor CPK Antibiotics no herndon avoid nephrotoxics per GI Subjective ROS Limited/Unobtainable: No Constitutional: Reports: malaise, weakness Objective Objective Last 24 Hour Vital Signs Date Time Temp Pulse Resp B/P (MAP) Pulse Ox O2 Delivery O2 Flow Rate FiO2 04/22/18 15:00 64 17 109/49 (69) 99 04/22/18 14:00 64 15 101/56 (71) 100 04/22/18 13:00 64 15 100/48 (65) 100 04/22/18 12:00 72 04/22/18 12:00 100/38 04/22/18 12:00 97.9 69 16 102/52 (69) 100 04/22/18 12:00 Room Air 04/22/18 11:00 70 15 92/38 (56) 100 04/22/18 10:00 75 15 89/38 (55) 100 04/22/18 09:00 70 15 99/38 (58) 100 04/22/18 08:00 98.0 72 16 102/52 (69) 100 04/22/18 08:00 70 04/22/18 08:00 Room Air 04/22/18 07:00 70 15 100/38 (58) 100 04/22/18 06:00 70 15 89/38 (55) 100 04/22/18 05:00 97.9 72 16 89/52 (64) 100 04/22/18 04:00 72 04/22/18 04:00 Room Air 04/22/18 04:00 73 15 97/53 (68) 100 04/22/18 03:00 68 16 101/46 (64) 99 04/22/18 02:00 72 14 96/50 (65) 99 04/22/18 01:00 98.4 73 14 96/55 (69) 100 04/22/18 00:00 76 15 92/47 (62) 100 04/22/18 00:00 76 04/22/18 00:00 Room Air 04/21/18 23:00 77 15 94/42 (59) 100 04/21/18 22:00 78 14 89/41 (57) 100 04/21/18 21:00 78 16 97/59 (72) 100 04/21/18 20:00 79 04/21/18 20:00 98.5 80 16 105/53 (70) 100 04/21/18 20:00 Room Air 04/21/18 19:00 95 119/77 (91) 04/21/18 18:00 83 103/59 (74) Intake and Output 04/21/18 04/22/18 19:00 07:00 Intake Total 1737.5 ml Output Total 100 ml Balance 1637.5 ml IV Total 1737.5 ml Output Urine Total 100 ml # Voids 1 Laboratory Tests 04/22/18 03:25: Urine Color Yellow, Urine Appearance Cloudy, Urine pH 5, Urine Specific [place] 1.015, Urine Protein 3+H, Urine Glucose (UA) Negative, Urine Ketones Negative, Urine Blood 5+H, Urine Nitrite Negative, Urine Bilirubin Negative, Urine Urobilinogen Normal, Urine Leukocyte Esterase 2+H, Urine RBC 40-60H, Urine WBC 30-40H, Urine Squamous Epithelial Cells None, Urine Amorphous Sediment ModerateH , Urine Bacteria ModerateH, Urine Coarse Granular Casts 0-2H, Urine Opiates Screen PositiveH, Urine Barbiturates Screen Negative, Phencyclidine (PCP) Screen Negative, Urine Amphetamines Screen Negative, Urine Benzodiazepines Screen Negative, Urine Cocaine Screen Negative, Urine Marijuana (THC) Screen Negative 04/22/18 05:00: White Blood Count 11.7H, Red Blood Count 2.48L, Hemoglobin 7.9L, Hematocrit 23.2L, Mean Corpuscular Volume 94, Mean Corpuscular Hemoglobin 31.8H, Mean Corpuscular Hemoglobin Concent 33.9, Red Cell Distribution Width 13.1, Platelet Count 131L, Mean Platelet Volume 9.6, Neutrophils (%) (Auto) , Lymphocytes (%) ( Auto) , Monocytes (%) (Auto) , Eosinophils (%) (Auto) , Basophils (%) (Auto) , Differential Total Cells Counted 100, Neutrophils % (Manual) 82H, Lymphocytes % (Manual) 9L, Monocytes % (Manual) 8, Eosinophils % (Manual) 1, Basophils % ( Manual) 0, Band Neutrophils 0, Platelet Estimate DecreasedL, Platelet Morphology Normal, Red Blood Cell Morphology Normal, Prothrombin Time 14.2H, Prothromb Time International Ratio 1.4H, Activated Partial Thromboplast Time 45H , Sodium Level 139, Potassium Level 3.9, Chloride Level 113H, Carbon Dioxide Level 14L, Anion Gap 12, Blood Urea Nitrogen 46H, Creatinine 2.2H, Estimat Glomerular Filtration Rate 30.5, Glucose Level 193H, Uric Acid 6.0, Calcium Level 7.5L, Phosphorus Level 4.1, Magnesium Level 2.2, Iron Level 27L, Total Iron Binding Capacity 145L, Percent Iron Saturation 19, Unsaturated Iron Binding 118, Ferritin 285, Total Bilirubin 0.4, Gamma Glutamyl Transpeptidase 134H, Aspartate Amino Transf (AST/SGOT) 77H, Alanine Aminotransferase (ALT/SGPT ) 62, Alkaline Phosphatase 188H, Total Creatine Kinase 1723H, Pro-B-Type Natriuretic Peptide 7052H, Total Protein 5.6L, Albumin 2.6L, Globulin 3.0, Albumin/Globulin Ratio 0.9L, Triglycerides Level 55, Cholesterol Level 77, LDL Cholesterol 23, HDL Cholesterol 44, Cholesterol/HDL Ratio 1.8L, Amylase Level 990*H, Lipase > 2000H, Vitamin B12 Level 374, Folate 5.0L, Cortisol AM Sample [ Pending] Height (Feet): 5 Height (Inches): 6.00 Weight (Pounds): 140 General Appearance: no apparent distress Cardiovascular: normal rate Respiratory/Chest: decreased breath sounds Abdomen: distended Orlin Berrios MD Apr 22, 2018 17:12
[2018-04-22] MEDS ORDERED: Dyna-Hex 2% Top Sol 2oz TOPIC SCH (20:00)
--- NOTE | 2018-04-22 22:01 | General Progress Note ---
Assessment/Plan Problem List: (1) ARF (acute renal failure) ICD Codes: N17.9 - Acute kidney failure, unspecified SNOMED: 03978207 Qualifiers: Qualified Codes: N17.9 - Acute kidney failure, unspecified (2) Hypovolemic shock ICD Codes: R57.1 - Hypovolemic shock SNOMED: 28572296 (3) JONA (acute kidney injury) ICD Codes: N17.9 - Acute kidney failure, unspecified SNOMED: 64853036 Status: progressing Assessment/Plan urology consult w dr dickey r/o obstructive uropathy arf hypotension despite fluid challenge weak debilitated Subjective ROS Limited/Unobtainable: Yes Allergies: Coded Allergies: No Known Allergies (Unverified , 04/21/18) Objective Last 24 Hour Vital Signs Date Time Temp Pulse Resp B/P (MAP) Pulse Ox O2 Delivery O2 Flow Rate FiO2 04/22/18 20:00 97.8 72 13 107/54 (71) 100 04/22/18 19:00 72 14 105/60 (75) 99 04/22/18 18:00 64 17 100/52 (68) 99 04/22/18 18:00 74 14 112/59 (76) 99 04/22/18 17:00 67 17 110/49 (69) 99 04/22/18 17:00 74 14 117/48 (71) 99 04/22/18 16:00 73 16 117/58 (77) 99 04/22/18 16:00 Room Air 04/22/18 16:00 73 04/22/18 16:00 97.9 69 16 102/52 (69) 100 04/22/18 15:00 64 17 109/49 (69) 99 04/22/18 14:00 64 15 101/56 (71) 100 04/22/18 13:00 64 15 100/48 (65) 100 04/22/18 12:00 72 04/22/18 12:00 100/38 04/22/18 12:00 97.9 69 16 102/52 (69) 100 04/22/18 12:00 Room Air 04/22/18 11:00 70 15 92/38 (56) 100 04/22/18 10:00 75 15 89/38 (55) 100 04/22/18 09:00 70 15 99/38 (58) 100 04/22/18 08:00 98.0 72 16 102/52 (69) 100 04/22/18 08:00 70 04/22/18 08:00 Room Air 04/22/18 07:00 70 15 100/38 (58) 100 04/22/18 06:00 70 15 89/38 (55) 100 04/22/18 05:00 97.9 72 16 89/52 (64) 100 04/22/18 04:00 72 04/22/18 04:00 Room Air 04/22/18 04:00 73 15 97/53 (68) 100 04/22/18 03:00 68 16 101/46 (64) 99 04/22/18 02:00 72 14 96/50 (65) 99 04/22/18 01:00 98.4 73 14 96/55 (69) 100 04/22/18 00:00 76 15 92/47 (62) 100 04/22/18 00:00 76 04/22/18 00:00 Room Air 04/21/18 23:00 77 15 94/42 (59) 100 Intake and Output 04/21/18 04/22/18 18:59 06:59 Intake Total 1737.5 ml Output Total 100 ml Balance 1637.5 ml IV Total 1737.5 ml Output Urine Total 100 ml # Voids 1 Laboratory Tests 04/22/18 03:25: Urine Color Yellow, Urine Appearance Cloudy, Urine pH 5, Urine Specific [place] 1.015, Urine Protein 3+H, Urine Glucose (UA) Negative, Urine Ketones Negative, Urine Blood 5+H, Urine Nitrite Negative, Urine Bilirubin Negative, Urine Urobilinogen Normal, Urine Leukocyte Esterase 2+H, Urine RBC 40-60H, Urine WBC 30-40H, Urine Squamous Epithelial Cells None, Urine Amorphous Sediment ModerateH , Urine Bacteria ModerateH, Urine Coarse Granular Casts 0-2H, Urine Opiates Screen PositiveH, Urine Barbiturates Screen Negative, Phencyclidine (PCP) Screen Negative, Urine Amphetamines Screen Negative, Urine Benzodiazepines Screen Negative, Urine Cocaine Screen Negative, Urine Marijuana (THC) Screen Negative 04/22/18 05:00: White Blood Count 11.7H, Red Blood Count 2.48L, Hemoglobin 7.9L, Hematocrit 23.2L, Mean Corpuscular Volume 94, Mean Corpuscular Hemoglobin 31.8H, Mean Corpuscular Hemoglobin Concent 33.9, Red Cell Distribution Width 13.1, Platelet Count 131L, Mean Platelet Volume 9.6, Neutrophils (%) (Auto) , Lymphocytes (%) ( Auto) , Monocytes (%) (Auto) , Eosinophils (%) (Auto) , Basophils (%) (Auto) , Differential Total Cells Counted 100, Neutrophils % (Manual) 82H, Lymphocytes % (Manual) 9L, Monocytes % (Manual) 8, Eosinophils % (Manual) 1, Basophils % ( Manual) 0, Band Neutrophils 0, Platelet Estimate DecreasedL, Platelet Morphology Normal, Red Blood Cell Morphology Normal, Prothrombin Time 14.2H, Prothromb Time International Ratio 1.4H, Activated Partial Thromboplast Time 45H , Sodium Level 139, Potassium Level 3.9, Chloride Level 113H, Carbon Dioxide Level 14L, Anion Gap 12, Blood Urea Nitrogen 46H, Creatinine 2.2H, Estimat Glomerular Filtration Rate 30.5, Glucose Level 193H, Uric Acid 6.0, Calcium Level 7.5L, Phosphorus Level 4.1, Magnesium Level 2.2, Iron Level 27L, Total Iron Binding Capacity 145L, Percent Iron Saturation 19, Unsaturated Iron Binding 118, Ferritin 285, Total Bilirubin 0.4, Gamma Glutamyl Transpeptidase 134H, Aspartate Amino Transf (AST/SGOT) 77H, Alanine Aminotransferase (ALT/SGPT ) 62, Alkaline Phosphatase 188H, Total Creatine Kinase 1723H, C-Reactive Protein , Quantitative 11.2H, Pro-B-Type Natriuretic Peptide 7052H, Total Protein 5.6L, Albumin 2.6L, Globulin 3.0, Albumin/Globulin Ratio 0.9L, Triglycerides Level 55 , Cholesterol Level 77, LDL Cholesterol 23, HDL Cholesterol 44, Cholesterol/HDL Ratio 1.8L, Amylase Level 990*H, Lipase > 2000H, Vitamin B12 Level 374, Folate 5.0L, Cortisol AM Sample 14.9 Height (Feet): 5 Height (Inches): 6.00 Weight (Pounds): 140 Respiratory/Chest: lungs clear Abdomen: soft Oksana Casey MD Apr 22, 2018 22:01
--- NOTE | 2018-04-22 22:30 | Consultation ---
DATE OF CONSULTATION: 04/21/2018 CARDIOLOGY CONSULTATION CONSULTING PHYSICIAN: Alvaro Hargrove M.D. REFERRING PHYSICIAN: Oksana Casey M.D. REASON FOR CONSULTATION: Management of hypotension. HISTORY OF PRESENT ILLNESS: The patient is a very unfortunate 62-year-old gentleman with history of diabetes and history of hypertension, who presented to the hospital with weakness and left neck pain. The patient had hip fracture about a year ago and had ORIF of the hip. He had some complaints of pain in the same hip. He states that Ultram was not helping and the pain was 9/10. At the time of arrival to the hospital, the patient also had some complaints of generalized weakness as well as hypotension. In the emergency department, initial blood pressure was 156/88 mmHg and pulse of 70. He was saturating 97% on room air. Cardiology consultation was made for hemodynamic assistance. PAST MEDICAL HISTORY: Hypertension, diabetes mellitus. PAST SURGICAL HISTORY: None. FAMILY HISTORY: No premature coronary artery disease in first-degree relatives. SOCIAL HISTORY: Denies any tobacco, alcohol, or illicit drug use. ALLERGIES: No known drug allergies. MEDICATIONS: List of medications at home, none. REVIEW OF SYSTEMS: Twelve-system review done essentially negative except what was mentioned in history of present illness. PHYSICAL EXAMINATION: VITAL SIGNS: Blood pressure at the time of arrival to the hospital was 156/88 mmHg, however, his blood pressure dropped in just about an hour while he was still in the emergency department to 87/69 mmHg. His heart rate was stable at 70-75, respirations 16, temperature was 97.5 degrees Fahrenheit, and O2 saturation 97% on room air. GENERAL: The patient is a very pleasant 62-year-old gentleman, in no apparent respiratory distress and chronically ill, cachectic. HEENT: Atraumatic, normocephalic. ENT, pupils are equal, round, and reactive to light and accommodation. Extraocular muscles intact. NECK: JVP less than 5 cm. No carotid bruit. Carotid upstrokes 2+ bilaterally. CARDIOVASCULAR SYSTEM: Normal S1, S2. Regular rate and rhythm. No murmurs, gallops, or rubs. PMI is at fourth intercostal space at midclavicular line. LUNGS: Clear to auscultation bilaterally. ABDOMEN: Soft, nontender, and nondistended. No hepatosplenomegaly. Positive bowel sounds. EXTREMITIES: No evidence of edema, clubbing, or cyanosis. LABORATORY FINDINGS: WBC was 13.5, hemoglobin of 10.3, hematocrit of 30.8, and platelet count 217,000 with 82.9% neutrophil and 2% bandemia. Chemistry shows sodium of 133, potassium 4.7, chloride 105, bicarbonate 10, BUN of 60, creatinine 3.4, glucose 148, calcium 8.8. Toxicology showed positive opiates. INR was 1.4. A chest x-ray in the emergency department showed no acute findings. Duplex evaluation of lower extremities showed patent deep venous system bilaterally. The patient was admitted to intensive care unit for possibly septic shock with acute renal failure. A 12-lead electrocardiogram, sinus rhythm at rate of 83 with septal infarct of age indeterminate. ASSESSMENT AND PLAN: The patient is a very unfortunate 62-year-old gentleman, who is seen in the [facility] Intensive Care Unit. 1. Septic shock. The patient received IV fluid in the emergency department to which he did not respond. A central line was inserted in the emergency department and the patient was placed on dopamine drip. We will continue managing with dopamine drip ensuring that mean arterial pressure is above 65 mmHg. While the patient is in the unit, we will obtain 2D echocardiography for assessment of LV systolic and diastolic function. Further therapeutic and diagnostic decision will be based on the results of the echocardiography and the patient's clinical course in the next few days. 2. Most likely septic shock with leukocytosis, left shift, bandemia, and evidence of ATN. Hydration and I's and O's with mainstay of therapy. 3. History of diabetes mellitus. 4. History of hypertension. Total amount of time spent in the intensive care unit of [facility], the patient with septic shock, discussed the plan of care with the nursing staff and primary care physician over 50 minutes. I would like to thank Dr. Casey for the courtesy of this consultation. Alvaro Hargrove M.D. DR: Anderson JOB#: [id number] CC:
--- NOTE | 2018-04-22 23:02 | Surgery Progress Note ---
Surgery Progress Note Subjective Additional Comments doing better today. no complaints of pain. MRI noted. Objective Last 24 Hour Vital Signs Date Time Temp Pulse Resp B/P (MAP) Pulse Ox O2 Delivery O2 Flow Rate FiO2 04/22/18 21:00 70 15 117/51 (73) 99 04/22/18 20:00 97.8 72 13 107/54 (71) 100 04/22/18 20:00 Room Air 04/22/18 20:00 72 04/22/18 19:00 72 14 105/60 (75) 99 04/22/18 18:00 64 17 100/52 (68) 99 04/22/18 18:00 74 14 112/59 (76) 99 04/22/18 17:00 67 17 110/49 (69) 99 04/22/18 17:00 74 14 117/48 (71) 99 04/22/18 16:00 73 16 117/58 (77) 99 04/22/18 16:00 Room Air 04/22/18 16:00 73 04/22/18 16:00 97.9 69 16 102/52 (69) 100 04/22/18 15:00 64 17 109/49 (69) 99 04/22/18 14:00 64 15 101/56 (71) 100 04/22/18 13:00 64 15 100/48 (65) 100 04/22/18 12:00 72 04/22/18 12:00 100/38 04/22/18 12:00 97.9 69 16 102/52 (69) 100 04/22/18 12:00 Room Air 04/22/18 11:00 70 15 92/38 (56) 100 04/22/18 10:00 75 15 89/38 (55) 100 04/22/18 09:00 70 15 99/38 (58) 100 04/22/18 08:00 98.0 72 16 102/52 (69) 100 04/22/18 08:00 70 04/22/18 08:00 Room Air 04/22/18 07:00 70 15 100/38 (58) 100 04/22/18 06:00 70 15 89/38 (55) 100 04/22/18 05:00 97.9 72 16 89/52 (64) 100 04/22/18 04:00 72 04/22/18 04:00 Room Air 04/22/18 04:00 73 15 97/53 (68) 100 04/22/18 03:00 68 16 101/46 (64) 99 04/22/18 02:00 72 14 96/50 (65) 99 04/22/18 01:00 98.4 73 14 96/55 (69) 100 04/22/18 00:00 76 15 92/47 (62) 100 04/22/18 00:00 76 04/22/18 00:00 Room Air I&O Intake and Output 04/21/18 04/22/18 18:59 06:59 Intake Total 1737.5 ml Output Total 100 ml Balance 1637.5 ml IV Total 1737.5 ml Output Urine Total 100 ml # Voids 1 Cardiovascular: RSR Respiratory: decreased breath sounds Abdomen: soft, non-distended, decreased bowel sounds Extremities: no cyanosis Laboratory Tests Test 04/22/18 03:25 04/22/18 05:00 Urine Color Yellow Urine Appearance Cloudy Urine pH 5 (4.5-8.0) Urine Specific [place] 1.015 (1.005-1.035) Urine Protein 3+ (NEGATIVE) H Urine Glucose (UA) Negative (NEGATIVE) Urine Ketones Negative (NEGATIVE) Urine Blood 5+ (NEGATIVE) H Urine Nitrite Negative (NEGATIVE) Urine Bilirubin Negative (NEGATIVE) Urine Urobilinogen Normal MG/DL (0.0-1.0) Urine Leukocyte Esterase 2+ (NEGATIVE) H Urine RBC 40-60 /HPF (0 - 0) H Urine WBC 30-40 /HPF (0 - 0) H Urine Squamous Epithelial Cells None /LPF (NONE/OCC) Urine Amorphous Sediment Moderate /LPF (NONE) H Urine Bacteria Moderate /HPF (NONE) H Urine Coarse Granular Casts 0-2 /LPF (NONE) H Urine Opiates Screen Positive (NEGATIVE) H Urine Barbiturates Screen Negative (NEGATIVE) Phencyclidine (PCP) Screen Negative (NEGATIVE) Urine Amphetamines Screen Negative (NEGATIVE) Urine Benzodiazepines Screen Negative (NEGATIVE) Urine Cocaine Screen Negative (NEGATIVE) Urine Marijuana (THC) Screen Negative (NEGATIVE) White Blood Count 11.7 K/UL (4.8-10.8) H Red Blood Count 2.48 M/UL (4.70-6.10) L Hemoglobin 7.9 G/DL (14.2-18.0) L Hematocrit 23.2 % (42.0-52.0) L Mean Corpuscular Volume 94 FL (80-99) Mean Corpuscular Hemoglobin 31.8 PG (27.0-31.0) H Mean Corpuscular Hemoglobin Concent 33.9 G/DL (32.0-36.0) Red Cell Distribution Width 13.1 % (11.6-14.8) Platelet Count 131 K/UL (150-450) L Mean Platelet Volume 9.6 FL (6.5-10.1) Neutrophils (%) (Auto) % (45.0-75.0) Lymphocytes (%) (Auto) % (20.0-45.0) Monocytes (%) (Auto) % (1.0-10.0) Eosinophils (%) (Auto) % (0.0-3.0) Basophils (%) (Auto) % (0.0-2.0) Differential Total Cells Counted 100 Neutrophils % (Manual) 82 % (45-75) H Lymphocytes % (Manual) 9 % (20-45) L Monocytes % (Manual) 8 % (1-10) Eosinophils % (Manual) 1 % (0-3) Basophils % (Manual) 0 % (0-2) Band Neutrophils 0 % (0-8) Platelet Estimate Decreased L Platelet Morphology Normal Red Blood Cell Morphology Normal Prothrombin Time 14.2 SEC (9.30-11.50) H Prothromb Time International Ratio 1.4 (0.9-1.1) H Activated Partial Thromboplast Time 45 SEC (23-33) H Sodium Level 139 MMOL/L (136-145) Potassium Level 3.9 MMOL/L (3.5-5.1) Chloride Level 113 MMOL/L (98-107) H Carbon Dioxide Level 14 MMOL/L (21-32) L Anion Gap 12 mmol/L (5-15) Blood Urea Nitrogen 46 mg/dL (7-18) H Creatinine 2.2 MG/DL (0.55-1.30) H Estimat Glomerular Filtration Rate 30.5 mL/min (>60) Glucose Level 193 MG/DL (74-106) H Uric Acid 6.0 MG/DL (2.6-7.2) Calcium Level 7.5 MG/DL (8.5-10.1) L Phosphorus Level 4.1 MG/DL (2.5-4.9) Magnesium Level 2.2 MG/DL (1.8-2.4) Iron Level 27 ug/dL (50-175) L Total Iron Binding Capacity 145 ug/dL (250-450) L Percent Iron Saturation 19 % (15-50) Unsaturated Iron Binding 118 ug/dL (112-346) Ferritin 285 NG/ML (8-388) Total Bilirubin 0.4 MG/DL (0.2-1.0) Gamma Glutamyl Transpeptidase 134 U/L (5-85) H Aspartate Amino Transf (AST/SGOT) 77 U/L (15-37) H Alanine Aminotransferase (ALT/SGPT) 62 U/L (12-78) Alkaline Phosphatase 188 U/L (46-116) H Total Creatine Kinase 1723 U/L (26-308) H C-Reactive Protein, Quantitative 11.2 mg/dL (0.00-0.90) H Pro-B-Type Natriuretic Peptide 7052 pg/mL (0-125) H Total Protein 5.6 G/DL (6.4-8.2) L Albumin 2.6 G/DL (3.4-5.0) L Globulin 3.0 g/dL Albumin/Globulin Ratio 0.9 (1.0-2.7) L Triglycerides Level 55 MG/DL (30-150) Cholesterol Level 77 MG/DL (< 200) LDL Cholesterol 23 mg/dL (<100) HDL Cholesterol 44 MG/DL (40-60) Cholesterol/HDL Ratio 1.8 (3.3-4.4) L Amylase Level 990 U/L (25-115) *H Lipase > 2000 U/L (73-393) H Vitamin B12 Level 374 PG/ML (193-986) Folate 5.0 NG/ML (8.6-58.9) L Cortisol AM Sample 14.9 UG/DL Plan Problems: (1) Acute cholecystitis Assessment & Plan: US with Distended urinary bladder. Torres catheter not visualized but present. Clinical evaluation is needed. Recommend removal of the Torres catheter and replacement. Mild pelvocaliectasis noted which is likely on the basis of the distended bladder. Suspected choledocholithiasis with the one or more stones in the distal common bile duct. Moderate biliary ductal dilatation demonstrated. Cholelithiasis with distention of the gallbladder and wall thickening. Leukocytosis Hypotensive shock Abnormal LFT's. Possible choledocholithiasis MRI reviewed. likely gallstone pancreatitis with choledocholithiasis. -NPO -IV fluids -IV Abx -Will discuss ERCP with GI -no acute surgical intervention planned -Trend jennifer/lip -hydrate -monitor I&O -thank you for this consult. will follow with recs. (2) Hypovolemic shock Martin Sterling Apr 22, 2018 23:02
--- NOTE | 2018-04-22 23:48 | Cardiology Progress Note ---
Assessment/Plan Assessment/Plan 1. Septic shock, off pressors, continue hydration. 2. JONA, improving. 3. History of diabetes mellitus. 4. History of hypertension. 5. Gallstone pancreatitis. Subjective Subjective Sinus rhythm at rate of 70. Objective Last 24 Hour Vital Signs Date Time Temp Pulse Resp B/P (MAP) Pulse Ox O2 Delivery O2 Flow Rate FiO2 04/22/18 21:00 70 15 117/51 (73) 99 04/22/18 20:00 97.8 72 13 107/54 (71) 100 04/22/18 20:00 Room Air 04/22/18 20:00 72 04/22/18 19:00 72 14 105/60 (75) 99 04/22/18 18:00 64 17 100/52 (68) 99 04/22/18 18:00 74 14 112/59 (76) 99 04/22/18 17:00 67 17 110/49 (69) 99 04/22/18 17:00 74 14 117/48 (71) 99 04/22/18 16:00 73 16 117/58 (77) 99 04/22/18 16:00 Room Air 04/22/18 16:00 73 04/22/18 16:00 97.9 69 16 102/52 (69) 100 04/22/18 15:00 64 17 109/49 (69) 99 04/22/18 14:00 64 15 101/56 (71) 100 04/22/18 13:00 64 15 100/48 (65) 100 04/22/18 12:00 72 04/22/18 12:00 100/38 04/22/18 12:00 97.9 69 16 102/52 (69) 100 04/22/18 12:00 Room Air 04/22/18 11:00 70 15 92/38 (56) 100 04/22/18 10:00 75 15 89/38 (55) 100 04/22/18 09:00 70 15 99/38 (58) 100 04/22/18 08:00 98.0 72 16 102/52 (69) 100 04/22/18 08:00 70 04/22/18 08:00 Room Air 04/22/18 07:00 70 15 100/38 (58) 100 04/22/18 06:00 70 15 89/38 (55) 100 04/22/18 05:00 97.9 72 16 89/52 (64) 100 04/22/18 04:00 72 04/22/18 04:00 Room Air 04/22/18 04:00 73 15 97/53 (68) 100 04/22/18 03:00 68 16 101/46 (64) 99 04/22/18 02:00 72 14 96/50 (65) 99 04/22/18 01:00 98.4 73 14 96/55 (69) 100 04/22/18 00:00 76 15 92/47 (62) 100 04/22/18 00:00 76 04/22/18 00:00 Room Air Intake and Output 04/21/18 04/22/18 18:59 06:59 Intake Total 1737.5 ml Output Total 100 ml Balance 1637.5 ml IV Total 1737.5 ml Output Urine Total 100 ml # Voids 1 Laboratory Tests Test 04/22/18 03:25 04/22/18 05:00 Urine Color Yellow Urine Appearance Cloudy Urine pH 5 (4.5-8.0) Urine Specific [place] 1.015 (1.005-1.035) Urine Protein 3+ (NEGATIVE) H Urine Glucose (UA) Negative (NEGATIVE) Urine Ketones Negative (NEGATIVE) Urine Blood 5+ (NEGATIVE) H Urine Nitrite Negative (NEGATIVE) Urine Bilirubin Negative (NEGATIVE) Urine Urobilinogen Normal MG/DL (0.0-1.0) Urine Leukocyte Esterase 2+ (NEGATIVE) H Urine RBC 40-60 /HPF (0 - 0) H Urine WBC 30-40 /HPF (0 - 0) H Urine Squamous Epithelial Cells None /LPF (NONE/OCC) Urine Amorphous Sediment Moderate /LPF (NONE) H Urine Bacteria Moderate /HPF (NONE) H Urine Coarse Granular Casts 0-2 /LPF (NONE) H Urine Opiates Screen Positive (NEGATIVE) H Urine Barbiturates Screen Negative (NEGATIVE) Phencyclidine (PCP) Screen Negative (NEGATIVE) Urine Amphetamines Screen Negative (NEGATIVE) Urine Benzodiazepines Screen Negative (NEGATIVE) Urine Cocaine Screen Negative (NEGATIVE) Urine Marijuana (THC) Screen Negative (NEGATIVE) White Blood Count 11.7 K/UL (4.8-10.8) H Red Blood Count 2.48 M/UL (4.70-6.10) L Hemoglobin 7.9 G/DL (14.2-18.0) L Hematocrit 23.2 % (42.0-52.0) L Mean Corpuscular Volume 94 FL (80-99) Mean Corpuscular Hemoglobin 31.8 PG (27.0-31.0) H Mean Corpuscular Hemoglobin Concent 33.9 G/DL (32.0-36.0) Red Cell Distribution Width 13.1 % (11.6-14.8) Platelet Count 131 K/UL (150-450) L Mean Platelet Volume 9.6 FL (6.5-10.1) Neutrophils (%) (Auto) % (45.0-75.0) Lymphocytes (%) (Auto) % (20.0-45.0) Monocytes (%) (Auto) % (1.0-10.0) Eosinophils (%) (Auto) % (0.0-3.0) Basophils (%) (Auto) % (0.0-2.0) Differential Total Cells Counted 100 Neutrophils % (Manual) 82 % (45-75) H Lymphocytes % (Manual) 9 % (20-45) L Monocytes % (Manual) 8 % (1-10) Eosinophils % (Manual) 1 % (0-3) Basophils % (Manual) 0 % (0-2) Band Neutrophils 0 % (0-8) Platelet Estimate Decreased L Platelet Morphology Normal Red Blood Cell Morphology Normal Prothrombin Time 14.2 SEC (9.30-11.50) H Prothromb Time International Ratio 1.4 (0.9-1.1) H Activated Partial Thromboplast Time 45 SEC (23-33) H Sodium Level 139 MMOL/L (136-145) Potassium Level 3.9 MMOL/L (3.5-5.1) Chloride Level 113 MMOL/L (98-107) H Carbon Dioxide Level 14 MMOL/L (21-32) L Anion Gap 12 mmol/L (5-15) Blood Urea Nitrogen 46 mg/dL (7-18) H Creatinine 2.2 MG/DL (0.55-1.30) H Estimat Glomerular Filtration Rate 30.5 mL/min (>60) Glucose Level 193 MG/DL (74-106) H Uric Acid 6.0 MG/DL (2.6-7.2) Calcium Level 7.5 MG/DL (8.5-10.1) L Phosphorus Level 4.1 MG/DL (2.5-4.9) Magnesium Level 2.2 MG/DL (1.8-2.4) Iron Level 27 ug/dL (50-175) L Total Iron Binding Capacity 145 ug/dL (250-450) L Percent Iron Saturation 19 % (15-50) Unsaturated Iron Binding 118 ug/dL (112-346) Ferritin 285 NG/ML (8-388) Total Bilirubin 0.4 MG/DL (0.2-1.0) Gamma Glutamyl Transpeptidase 134 U/L (5-85) H Aspartate Amino Transf (AST/SGOT) 77 U/L (15-37) H Alanine Aminotransferase (ALT/SGPT) 62 U/L (12-78) Alkaline Phosphatase 188 U/L (46-116) H Total Creatine Kinase 1723 U/L (26-308) H C-Reactive Protein, Quantitative 11.2 mg/dL (0.00-0.90) H Pro-B-Type Natriuretic Peptide 7052 pg/mL (0-125) H Total Protein 5.6 G/DL (6.4-8.2) L Albumin 2.6 G/DL (3.4-5.0) L Globulin 3.0 g/dL Albumin/Globulin Ratio 0.9 (1.0-2.7) L Triglycerides Level 55 MG/DL (30-150) Cholesterol Level 77 MG/DL (< 200) LDL Cholesterol 23 mg/dL (<100) HDL Cholesterol 44 MG/DL (40-60) Cholesterol/HDL Ratio 1.8 (3.3-4.4) L Amylase Level 990 U/L (25-115) *H Lipase > 2000 U/L (73-393) H Vitamin B12 Level 374 PG/ML (193-986) Folate 5.0 NG/ML (8.6-58.9) L Cortisol AM Sample 14.9 UG/DL Microbiology Date/Time Source Procedure Growth Status 04/21/18 07:15 Rectum VRE Culture Pending Resulted 04/21/18 07:15 Rectum - Preliminary Resulted Objective HEENT: Atraumatic, normocephalic. ENT, pupils are equal, round, and reactive to light and accommodation. Extraocular muscles intact. NECK: JVP less than 5 cm. No carotid bruit. Carotid upstrokes 2+ bilaterally. CARDIOVASCULAR SYSTEM: Normal S1, S2. Regular rate and rhythm. No murmurs, gallops, or rubs. PMI is at fourth intercostal space at midclavicular line. LUNGS: Clear to auscultation bilaterally. ABDOMEN: Soft, nontender, and nondistended. No hepatosplenomegaly. Positive bowel sounds. EXTREMITIES: No evidence of edema, clubbing, or cyanosis. Alvaro Hargrove MD Apr 22, 2018 23:47
[2018-04-23] VITALS (18 sets, daily range): BP systolic 98–149; BP diastolic 49–78
[2018-04-23] MEDS: Piperacillin/Tazobactam 3.375 GM in D5W 110 ML IVPB SCH ×3 (06:04→22:40)
[2018-04-23] MEDS: NovoLOG Insulin Flexpen SUBQ SCH ×4 (06:07→21:00)
[2018-04-23 06:20] LABS: HEMATOCRIT 22.7 % (42.0-52.0); HEMOGLOBIN 7.6 G/DL (14.2-18.0); MEAN CORPUSCULAR VOLUME 96 FL (80-99); PLATELET COUNT 136 K/UL (150-450); RED BLOOD COUNT 2.36 M/UL (4.70-6.10); RED CELL DISTRIBUTION WIDTH 13.1 % (11.6-14.8); WHITE BLOOD COUNT 9.2 K/UL (4.8-10.8)
[2018-04-23 06:52] LABS: ALANINE AMINOTRANSFERASE 51 U/L (12-78); ALBUMIN 2.5 G/DL (3.4-5.0); ALBUMIN/GLOBULIN RATIO 0.8 (1.0-2.7); ALKALINE PHOSPHATASE 156 U/L (46-116); ANION GAP 12 mmol/L (5-15); ASPARTATE AMINO TRANSFERASE 55 U/L (15-37); BILIRUBIN,TOTAL 0.4 MG/DL (0.2-1.0); BLOOD UREA NITROGEN 34 mg/dL (7-18); CALCIUM 7.6 MG/DL (8.5-10.1); CARBON DIOXIDE 15 MMOL/L (21-32); CHLORIDE 120 MMOL/L (98-107); CREATININE 1.7 MG/DL (0.55-1.30); GAMMA GLUTAMYL TRANSPEPTIDASE 121 U/L (5-85); PHOSPHORUS 3.2 MG/DL (2.5-4.9); POTASSIUM 3.6 MMOL/L (3.5-5.1); SODIUM 147 MMOL/L (136-145)
[2018-04-23 07:22] LABS: CREATINE KINASE 839 U/L (26-308)
[2018-04-23] MEDS: Pantoprazole Inj IVP SCH (08:34)
--- NOTE | 2018-04-23 11:30 | Surgery Progress Note ---
Surgery Progress Note Subjective Additional Comments no acute events. in ICU. more awake and responsive today. labs noted. Objective Last 24 Hour Vital Signs Date Time Temp Pulse Resp B/P (MAP) Pulse Ox O2 Delivery O2 Flow Rate FiO2 04/23/18 11:00 67 20 106/51 (69) 100 04/23/18 10:00 69 14 128/67 (87) 99 04/23/18 09:00 78 14 131/62 (85) 100 04/23/18 08:00 Room Air 04/23/18 08:00 98.5 68 17 117/54 (75) 98 04/23/18 08:00 70 04/23/18 07:00 80 18 114/62 (79) 100 04/23/18 06:00 81 16 122/54 (76) 100 04/23/18 05:00 78 16 113/49 (70) 99 04/23/18 04:00 Room Air 04/23/18 04:00 98.6 70 16 118/52 (74) 99 04/23/18 04:00 70 04/23/18 03:00 69 16 116/75 (89) 100 04/23/18 02:00 74 15 113/55 (74) 98 04/23/18 01:00 71 14 98/51 (67) 98 04/23/18 00:00 76 04/23/18 00:00 Room Air 04/23/18 00:00 98.2 76 17 103/54 (70) 99 04/22/18 23:00 74 20 109/48 (68) 99 04/22/18 22:00 73 17 116/59 (78) 98 04/22/18 21:00 70 15 117/51 (73) 99 04/22/18 20:00 97.8 72 13 107/54 (71) 100 04/22/18 20:00 Room Air 04/22/18 20:00 72 04/22/18 19:00 72 14 105/60 (75) 99 04/22/18 18:00 64 17 100/52 (68) 99 04/22/18 18:00 74 14 112/59 (76) 99 04/22/18 17:00 67 17 110/49 (69) 99 04/22/18 17:00 74 14 117/48 (71) 99 04/22/18 16:00 73 16 117/58 (77) 99 04/22/18 16:00 Room Air 04/22/18 16:00 73 04/22/18 16:00 97.9 69 16 102/52 (69) 100 04/22/18 15:00 64 17 109/49 (69) 99 04/22/18 14:00 64 15 101/56 (71) 100 04/22/18 13:00 64 15 100/48 (65) 100 04/22/18 12:00 72 04/22/18 12:00 100/38 04/22/18 12:00 97.9 69 16 102/52 (69) 100 04/22/18 12:00 Room Air I&O Intake and Output 04/22/18 04/23/18 19:00 07:00 Intake Total 900 ml 1787.5 ml Output Total 850 ml 660 ml Balance 50 ml 1127.5 ml IV Total 900 ml 1787.5 ml Output Urine Total 850 ml 660 ml # Voids 3 Cardiovascular: RSR Respiratory: clear Abdomen: soft, non-tender, present bowel sounds, non-distended Extremities: no cyanosis Laboratory Tests Test 04/23/18 05:00 White Blood Count 9.2 K/UL (4.8-10.8) Red Blood Count 2.36 M/UL (4.70-6.10) L Hemoglobin 7.6 G/DL (14.2-18.0) L Hematocrit 22.7 % (42.0-52.0) L Mean Corpuscular Volume 96 FL (80-99) Mean Corpuscular Hemoglobin 32.3 PG (27.0-31.0) H Mean Corpuscular Hemoglobin Concent 33.7 G/DL (32.0-36.0) Red Cell Distribution Width 13.1 % (11.6-14.8) Platelet Count 136 K/UL (150-450) L Mean Platelet Volume 9.4 FL (6.5-10.1) Neutrophils (%) (Auto) % (45.0-75.0) Lymphocytes (%) (Auto) % (20.0-45.0) Monocytes (%) (Auto) % (1.0-10.0) Eosinophils (%) (Auto) % (0.0-3.0) Basophils (%) (Auto) % (0.0-2.0) Differential Total Cells Counted 100 Neutrophils % (Manual) 77 % (45-75) H Lymphocytes % (Manual) 12 % (20-45) L Monocytes % (Manual) 8 % (1-10) Eosinophils % (Manual) 3 % (0-3) Basophils % (Manual) 0 % (0-2) Band Neutrophils 0 % (0-8) Platelet Estimate Decreased L Platelet Morphology Normal Red Blood Cell Morphology Normal Sodium Level 147 MMOL/L (136-145) H Potassium Level 3.6 MMOL/L (3.5-5.1) Chloride Level 120 MMOL/L (98-107) H Carbon Dioxide Level 15 MMOL/L (21-32) L Anion Gap 12 mmol/L (5-15) Blood Urea Nitrogen 34 mg/dL (7-18) H Creatinine 1.7 MG/DL (0.55-1.30) H Estimat Glomerular Filtration Rate 41.0 mL/min (>60) Glucose Level 63 MG/DL (74-106) #L Uric Acid 5.0 MG/DL (2.6-7.2) Calcium Level 7.6 MG/DL (8.5-10.1) L Phosphorus Level 3.2 MG/DL (2.5-4.9) Magnesium Level 2.2 MG/DL (1.8-2.4) Total Bilirubin 0.4 MG/DL (0.2-1.0) Gamma Glutamyl Transpeptidase 121 U/L (5-85) H Aspartate Amino Transf (AST/SGOT) 55 U/L (15-37) H Alanine Aminotransferase (ALT/SGPT) 51 U/L (12-78) Alkaline Phosphatase 156 U/L (46-116) H Total Creatine Kinase 839 U/L (26-308) H Pro-B-Type Natriuretic Peptide 6586 pg/mL (0-125) H Total Protein 5.5 G/DL (6.4-8.2) L Albumin 2.5 G/DL (3.4-5.0) L Globulin 3.0 g/dL Albumin/Globulin Ratio 0.8 (1.0-2.7) L Amylase Level 382 U/L (25-115) H Lipase 1190 U/L (73-393) H Plan Problems: (1) Acute cholecystitis Assessment & Plan: US with Distended urinary bladder. Torres catheter not visualized but present. Clinical evaluation is needed. Recommend removal of the Torres catheter and replacement. Mild pelvocaliectasis noted which is likely on the basis of the distended bladder. Suspected choledocholithiasis with the one or more stones in the distal common bile duct. Moderate biliary ductal dilatation demonstrated. Cholelithiasis with distention of the gallbladder and wall thickening. Leukocytosis Hypotensive shock Abnormal LFT's. Possible choledocholithiasis MRI reviewed. likely gallstone pancreatitis with choledocholithiasis. -NPO -IV fluids -IV Abx -Will discuss ERCP with GI - appreciate GI input -no acute surgical intervention planned -Trend jennifer/lip -hydrate -monitor I&O -thank you for this consult. will follow with recs. (2) Hypovolemic shock Martin Sterling Apr 23, 2018 11:30
--- NOTE | 2018-04-23 13:43 | Nephrology Progress Note ---
Assessment/Plan Problem List: (1) JONA (acute kidney injury) Assessment: Cr lowering (2) Gallstone pancreatitis (3) Anemia (4) Dehydration (5) Hypovolemic shock (6) Diabetes Assessment: with elevated HgbA1c Plan consider transfusion Hydrate- Monitor renal parameters Monitor CPK Antibiotics no herndon avoid nephrotoxics per GI Subjective ROS Limited/Unobtainable: No Constitutional: Reports: malaise Objective Objective Last 24 Hour Vital Signs Date Time Temp Pulse Resp B/P (MAP) Pulse Ox O2 Delivery O2 Flow Rate FiO2 04/23/18 12:00 68 04/23/18 12:00 98.4 69 13 123/60 (81) 100 04/23/18 12:00 Room Air 04/23/18 11:59 127/60 04/23/18 11:00 67 20 106/51 (69) 100 04/23/18 10:00 69 14 128/67 (87) 99 04/23/18 09:00 78 14 131/62 (85) 100 04/23/18 08:00 Room Air 04/23/18 08:00 98.5 68 17 117/54 (75) 98 04/23/18 08:00 70 04/23/18 07:00 80 18 114/62 (79) 100 04/23/18 06:00 81 16 122/54 (76) 100 04/23/18 05:00 78 16 113/49 (70) 99 04/23/18 04:00 Room Air 04/23/18 04:00 98.6 70 16 118/52 (74) 99 04/23/18 04:00 70 04/23/18 03:00 69 16 116/75 (89) 100 04/23/18 02:00 74 15 113/55 (74) 98 04/23/18 01:00 71 14 98/51 (67) 98 04/23/18 00:00 76 04/23/18 00:00 Room Air 04/23/18 00:00 98.2 76 17 103/54 (70) 99 04/22/18 23:00 74 20 109/48 (68) 99 04/22/18 22:00 73 17 116/59 (78) 98 04/22/18 21:00 70 15 117/51 (73) 99 04/22/18 20:00 97.8 72 13 107/54 (71) 100 04/22/18 20:00 Room Air 04/22/18 20:00 72 04/22/18 19:00 72 14 105/60 (75) 99 04/22/18 18:00 64 17 100/52 (68) 99 04/22/18 18:00 74 14 112/59 (76) 99 04/22/18 17:00 67 17 110/49 (69) 99 04/22/18 17:00 74 14 117/48 (71) 99 04/22/18 16:00 73 16 117/58 (77) 99 04/22/18 16:00 Room Air 04/22/18 16:00 73 04/22/18 16:00 97.9 69 16 102/52 (69) 100 04/22/18 15:00 64 17 109/49 (69) 99 04/22/18 14:00 64 15 101/56 (71) 100 Intake and Output 04/22/18 04/23/18 19:00 07:00 Intake Total 900 ml 1787.5 ml Output Total 850 ml 660 ml Balance 50 ml 1127.5 ml IV Total 900 ml 1787.5 ml Output Urine Total 850 ml 660 ml # Voids 3 Laboratory Tests 04/23/18 05:00: White Blood Count 9.2, Red Blood Count 2.36L, Hemoglobin 7.6L, Hematocrit 22.7L , Mean Corpuscular Volume 96, Mean Corpuscular Hemoglobin 32.3H, Mean Corpuscular Hemoglobin Concent 33.7, Red Cell Distribution Width 13.1, Platelet Count 136L, Mean Platelet Volume 9.4, Neutrophils (%) (Auto) , Lymphocytes (%) ( Auto) , Monocytes (%) (Auto) , Eosinophils (%) (Auto) , Basophils (%) (Auto) , Differential Total Cells Counted 100, Neutrophils % (Manual) 77H, Lymphocytes % (Manual) 12L, Monocytes % (Manual) 8, Eosinophils % (Manual) 3, Basophils % ( Manual) 0, Band Neutrophils 0, Platelet Estimate DecreasedL, Platelet Morphology Normal, Red Blood Cell Morphology Normal, Sodium Level 147H, Potassium Level 3.6, Chloride Level 120H, Carbon Dioxide Level 15L, Anion Gap 12 , Blood Urea Nitrogen 34H, Creatinine 1.7H, Estimat Glomerular Filtration Rate 41.0, Glucose Level 63#L, Uric Acid 5.0, Calcium Level 7.6L, Phosphorus Level 3.2, Magnesium Level 2.2, Total Bilirubin 0.4, Gamma Glutamyl Transpeptidase 121H, Aspartate Amino Transf (AST/SGOT) 55H, Alanine Aminotransferase (ALT/SGPT ) 51, Alkaline Phosphatase 156H, Total Creatine Kinase 839H, Pro-B-Type Natriuretic Peptide 6586H, Total Protein 5.5L, Albumin 2.5L, Globulin 3.0, Albumin/Globulin Ratio 0.8L, Amylase Level 382H, Lipase 1190H 04/23/18 11:45: Urine Random Sodium 68 Height (Feet): 5 Height (Inches): 6.00 Weight (Pounds): 140 General Appearance: no apparent distress Cardiovascular: normal rate Respiratory/Chest: decreased breath sounds Abdomen: distended Orlin Berrios MD Apr 23, 2018 13:43
--- NOTE | 2018-04-23 14:41 | Infectious Diseases Prog Note ---
Assessment/Plan Assessment/Plan A; 1. Sepsis 2.Cholelithiasis/Choledocholithiasis 3. Leukocytosis. resolved 4. acute renal failure, improving 5. Elevated transaminase. 6. Diabetes mellitus. 7. Hypertension. 8. Lactic acidosis. 9. Pancreatitis 10. Diarrhea P: Continue Zosyn Will have ERCP on Thursday Will f/u C. difficile test Subjective ROS Limited/Unobtainable: No Constitutional: Reports: no symptoms Respiratory: Reports: no symptoms Cardiovascular: Reports: no symptoms Gastrointestinal/Abdominal: Reports: diarrhea Genitourinary: Reports: no symptoms Allergies: Coded Allergies: No Known Allergies (Unverified , 04/21/18) Objective Vital Signs Last 24 Hour Vital Signs Date Time Temp Pulse Resp B/P (MAP) Pulse Ox O2 Delivery O2 Flow Rate FiO2 04/23/18 14:00 68 20 125/62 (83) 99 04/23/18 13:00 62 14 114/61 (78) 99 04/23/18 12:00 68 04/23/18 12:00 98.4 69 13 123/60 (81) 100 04/23/18 12:00 Room Air 04/23/18 11:59 127/60 04/23/18 11:00 67 20 106/51 (69) 100 04/23/18 10:00 69 14 128/67 (87) 99 04/23/18 09:00 78 14 131/62 (85) 100 04/23/18 08:00 Room Air 04/23/18 08:00 98.5 68 17 117/54 (75) 98 04/23/18 08:00 70 04/23/18 07:00 80 18 114/62 (79) 100 04/23/18 06:00 81 16 122/54 (76) 100 04/23/18 05:00 78 16 113/49 (70) 99 04/23/18 04:00 Room Air 04/23/18 04:00 98.6 70 16 118/52 (74) 99 04/23/18 04:00 70 04/23/18 03:00 69 16 116/75 (89) 100 04/23/18 02:00 74 15 113/55 (74) 98 04/23/18 01:00 71 14 98/51 (67) 98 04/23/18 00:00 76 04/23/18 00:00 Room Air 04/23/18 00:00 98.2 76 17 103/54 (70) 99 04/22/18 23:00 74 20 109/48 (68) 99 04/22/18 22:00 73 17 116/59 (78) 98 04/22/18 21:00 70 15 117/51 (73) 99 04/22/18 20:00 97.8 72 13 107/54 (71) 100 04/22/18 20:00 Room Air 04/22/18 20:00 72 04/22/18 19:00 72 14 105/60 (75) 99 04/22/18 18:00 64 17 100/52 (68) 99 04/22/18 18:00 74 14 112/59 (76) 99 04/22/18 17:00 67 17 110/49 (69) 99 04/22/18 17:00 74 14 117/48 (71) 99 04/22/18 16:00 73 16 117/58 (77) 99 04/22/18 16:00 Room Air 04/22/18 16:00 73 04/22/18 16:00 97.9 69 16 102/52 (69) 100 04/22/18 15:00 64 17 109/49 (69) 99 Height (Feet): 5 Height (Inches): 6.00 Weight (Pounds): 140 General Appearance: no acute distress HEENT: mucous membranes moist Respiratory/Chest: lungs clear Cardiovascular: normal rate Abdomen: soft, non tender Extremities: no edema Neurologic/Psychiatric: alert, oriented x 3, responsive Microbiology Date/Time Source Procedure Growth Status 04/21/18 12:00 Blood Blood Culture - Preliminary NO GROWTH AFTER 24 HOURS Resulted 04/21/18 12:00 Blood Blood Culture - Preliminary NO GROWTH AFTER 24 HOURS Resulted 04/21/18 07:15 Nasal Nares MRSA Culture - Final NO METHICILLIN RESISTANT STAPH AUREUS... Complete 04/22/18 03:25 Urine,Clean Catch Urine Culture - Preliminary Gram Negative Bacillus 1 Resulted 04/21/18 07:15 Rectum VRE Culture - Final NO VANCOMYCIN RESISTANT ENTEROCOCCUS ... Complete 04/21/18 07:15 Rectum - Final NO CARBAPENEM-RESISTANT ENTEROBACTERI... Complete Laboratory Tests Test 04/23/18 05:00 04/23/18 11:45 White Blood Count 9.2 K/UL (4.8-10.8) Red Blood Count 2.36 M/UL (4.70-6.10) L Hemoglobin 7.6 G/DL (14.2-18.0) L Hematocrit 22.7 % (42.0-52.0) L Mean Corpuscular Volume 96 FL (80-99) Mean Corpuscular Hemoglobin 32.3 PG (27.0-31.0) H Mean Corpuscular Hemoglobin Concent 33.7 G/DL (32.0-36.0) Red Cell Distribution Width 13.1 % (11.6-14.8) Platelet Count 136 K/UL (150-450) L Mean Platelet Volume 9.4 FL (6.5-10.1) Neutrophils (%) (Auto) % (45.0-75.0) Lymphocytes (%) (Auto) % (20.0-45.0) Monocytes (%) (Auto) % (1.0-10.0) Eosinophils (%) (Auto) % (0.0-3.0) Basophils (%) (Auto) % (0.0-2.0) Differential Total Cells Counted 100 Neutrophils % (Manual) 77 % (45-75) H Lymphocytes % (Manual) 12 % (20-45) L Monocytes % (Manual) 8 % (1-10) Eosinophils % (Manual) 3 % (0-3) Basophils % (Manual) 0 % (0-2) Band Neutrophils 0 % (0-8) Platelet Estimate Decreased L Platelet Morphology Normal Red Blood Cell Morphology Normal Sodium Level 147 MMOL/L (136-145) H Potassium Level 3.6 MMOL/L (3.5-5.1) Chloride Level 120 MMOL/L (98-107) H Carbon Dioxide Level 15 MMOL/L (21-32) L Anion Gap 12 mmol/L (5-15) Blood Urea Nitrogen 34 mg/dL (7-18) H Creatinine 1.7 MG/DL (0.55-1.30) H Estimat Glomerular Filtration Rate 41.0 mL/min (>60) Glucose Level 63 MG/DL (74-106) #L Uric Acid 5.0 MG/DL (2.6-7.2) Calcium Level 7.6 MG/DL (8.5-10.1) L Phosphorus Level 3.2 MG/DL (2.5-4.9) Magnesium Level 2.2 MG/DL (1.8-2.4) Total Bilirubin 0.4 MG/DL (0.2-1.0) Gamma Glutamyl Transpeptidase 121 U/L (5-85) H Aspartate Amino Transf (AST/SGOT) 55 U/L (15-37) H Alanine Aminotransferase (ALT/SGPT) 51 U/L (12-78) Alkaline Phosphatase 156 U/L (46-116) H Total Creatine Kinase 839 U/L (26-308) H Pro-B-Type Natriuretic Peptide 6586 pg/mL (0-125) H Total Protein 5.5 G/DL (6.4-8.2) L Albumin 2.5 G/DL (3.4-5.0) L Globulin 3.0 g/dL Albumin/Globulin Ratio 0.8 (1.0-2.7) L Amylase Level 382 U/L (25-115) H Lipase 1190 U/L (73-393) H Urine Random Sodium 68 mmol/L (20-110) Current Medications Medications (Trade) Dose Ordered Sig/Jamal Route PRN Reason Start Time Stop Time Status Last Admin Dose Admin Acetaminophen (Tylenol) 500 mg Q4H PRN ORAL Mild Pain/Temp > 100.5 04/21/18 05:00 05/21/18 04:59 Chlorhexidine Gluconate (Jen-Hex 2%) 1 applic DAILY@2000 TOPIC 04/22/18 20:00 05/22/18 19:59 04/22/18 19:53 Dextrose (Dextrose 50%) 25 ml Q30M PRN IV Hypoglycemia 04/21/18 11:00 05/21/18 10:59 Dextrose (Dextrose 50%) 50 ml Q30M PRN IV Hypoglycemia 04/21/18 11:00 05/21/18 10:59 Folic Acid (Folate) 3 mg DAILY ORAL 04/22/18 17:15 05/22/18 17:14 04/23/18 08:35 Insulin Aspart (NovoLOG) BEFORE MEALS AND HS SUBQ 04/21/18 11:30 05/21/18 11:29 Norepinephrine Bitartrate 4 mg/ Dextrose 246 ml @ 7.38 mls/hr Q24H IV 04/21/18 12:00 05/21/18 11:59 04/21/18 12:00 Pantoprazole (Protonix) 40 mg DAILY IVP 04/22/18 09:00 05/22/18 08:59 04/23/18 08:34 Piperacillin Sod/ Tazobactam Sod 3.375 gm/Dextrose 110 ml @ 27.5 mls/hr EVERY 8 HOURS IVPB 04/21/18 14:00 04/26/18 13:59 04/23/18 13:47 Sodium Chloride 1,000 ml @ 75 mls/hr [id number] IV 04/23/18 14:00 05/23/18 13:59 04/23/18 13:47 Thai Hale MD Apr 23, 2018 14:41
--- NOTE | 2018-04-23 15:12 | Cardiology Report ---
APPROVED REPORT EXAM: Two-dimensional and M-mode echocardiogram with Doppler and color Doppler. INDICATION Congestive Heart Failure M-Mode DIMENSIONS IVSd1.0 (0.7-1.1cm)Left Atrium (MM)3.1 (1.6-4.0cm) LVDd4.9 (3.5-5.6cm)Aortic Root3.0 (2.0-3.7cm) PWd1.1 (0.7-1.1cm)Aortic Cusp Exc.2.1 (1.5-2.0cm) LVDs3.1 (2.5-4.0cm) PWs1.5 cm Normal left ventricular chamber size, systolic function and wall motion. Left ventricular ejection fraction estimated to be 55-60 %. No evidence of left ventricular hypertrophy. No evidence of pericardial effusion. All other cardiac chamber sizes are within normal limits. Mild focal aortic valve sclerosis with adequate cusp excursion. MIldly thickened mitral valve leaflets with normal excursion. Mild mitral annulus and aortic root calcification. Pulmonic valve not well visualized. Normal tricuspid valve structure. IVC dilated at 2.4 cm with slight physiologic collapse suggestive of increased RA pressure. A color flow and spectral Doppler study was performed and revealed: Trace mitral regurgitation. Mitral inflow indicates normal left ventricular diastolic function. Mild tricuspid regurgitation. Tricuspid systolic velocities suggests peak right ventricular systolic pressure of 42 mmHg, consistent with mild to moderate pulmonary hypertension.
--- NOTE | 2018-04-23 15:16 | Pulmonolgy Critical Care Note ---
Critical Care - Asmt/Plan Problems: (1) Anemia (2) Dehydration (3) JONA (acute kidney injury) (4) Choledocholithiasis with acute cholecystitis (5) Gallstone pancreatitis (6) Metabolic acidosis (7) Hypovolemic shock (8) Leg pain, left Assessment/Plan: ASSESSMENT: The patient is a 62-year-old male with a history of diabetes, hypertension, vasculopathy, likely CKD presenting with leg pain in the setting of dehydration and anion gap metabolic acidosis, likely sepsis. He is hypotensive with profound volume depletion. His w/u is consistent with gallstone pancreatitis and likely acute cholecystitis/choledocholithiasis PROBLEM LIST: 1. Shock, hypovolemic. 2. Gallstone pancreatitis 3. Acute cholelithiasis, possible choledocholithiasis 4. Leg pain. 5. JONA likely on CKD. 6. Anion-gap metabolic acidosis. 7. Leukocytosis. 8. Anemia. 9. Diabetes. 10. History of hypertension. 11. History of hip fracture. 12. History of vasculopathy. 13. Toe amputations and TMA. TREATMENT PLAN: 1. IVF 2. Off NE 3. Zosyn D #3 per ID 4. F/U Cx's and C diff 5. Bowel rest, NPO, IVF 6. venous and arterial duplex negative for DVT or ischemia 7. F/U surgery and GI recs: med management, plan for ERCP thursday 8. Monitor volumes and renal function 9. DVT prophylaxis heparin subcutaneous. 10. SSI, monit or BS 11. FC CCT 30 Critical Care - Objective Last 24 Hour Vital Signs Date Time Temp Pulse Resp B/P (MAP) Pulse Ox O2 Delivery O2 Flow Rate FiO2 04/23/18 14:00 68 20 125/62 (83) 99 04/23/18 13:00 62 14 114/61 (78) 99 04/23/18 12:00 68 04/23/18 12:00 98.4 69 13 123/60 (81) 100 04/23/18 12:00 Room Air 04/23/18 11:59 127/60 04/23/18 11:00 67 20 106/51 (69) 100 04/23/18 10:00 69 14 128/67 (87) 99 04/23/18 09:00 78 14 131/62 (85) 100 04/23/18 08:00 Room Air 04/23/18 08:00 98.5 68 17 117/54 (75) 98 04/23/18 08:00 70 04/23/18 07:00 80 18 114/62 (79) 100 04/23/18 06:00 81 16 122/54 (76) 100 04/23/18 05:00 78 16 113/49 (70) 99 04/23/18 04:00 Room Air 04/23/18 04:00 98.6 70 16 118/52 (74) 99 04/23/18 04:00 70 04/23/18 03:00 69 16 116/75 (89) 100 04/23/18 02:00 74 15 113/55 (74) 98 04/23/18 01:00 71 14 98/51 (67) 98 04/23/18 00:00 76 04/23/18 00:00 Room Air 04/23/18 00:00 98.2 76 17 103/54 (70) 99 04/22/18 23:00 74 20 109/48 (68) 99 04/22/18 22:00 73 17 116/59 (78) 98 04/22/18 21:00 70 15 117/51 (73) 99 04/22/18 20:00 97.8 72 13 107/54 (71) 100 04/22/18 20:00 Room Air 04/22/18 20:00 72 04/22/18 19:00 72 14 105/60 (75) 99 04/22/18 18:00 64 17 100/52 (68) 99 04/22/18 18:00 74 14 112/59 (76) 99 04/22/18 17:00 67 17 110/49 (69) 99 04/22/18 17:00 74 14 117/48 (71) 99 04/22/18 16:00 73 16 117/58 (77) 99 04/22/18 16:00 Room Air 04/22/18 16:00 73 04/22/18 16:00 97.9 69 16 102/52 (69) 100 Status: awake Condition: improving HEENT: atraumatic, normocephalic Lungs: clear Heart: HR/BP stable Abdomen: soft, non-tender, active bowel sounds Extremities: no C/C/E, other - TMA and toe amps Micro: Microbiology Date/Time Source Procedure Growth Status 04/21/18 12:00 Blood Blood Culture - Preliminary NO GROWTH AFTER 24 HOURS Resulted 04/21/18 12:00 Blood Blood Culture - Preliminary NO GROWTH AFTER 24 HOURS Resulted 04/21/18 07:15 Nasal Nares MRSA Culture - Final NO METHICILLIN RESISTANT STAPH AUREUS... Complete 04/22/18 03:25 Urine,Clean Catch Urine Culture - Preliminary Gram Negative Bacillus 1 Resulted 04/21/18 07:15 Rectum VRE Culture - Final NO VANCOMYCIN RESISTANT ENTEROCOCCUS ... Complete 04/21/18 07:15 Rectum - Final NO CARBAPENEM-RESISTANT ENTEROBACTERI... Complete Accucheck: 109 Critical Care - Subjective ROS Limited/Unobtainable: Yes ICU Day: 3 Intubation Day: N/A Interval Events: AFVSS off pressors, LFTs and CR better ERCP thursday IVF reduced NPO Condition: improving IV Access: central - R FEM EKG Rhythm: Sinus Rhythm Sputum Amount: None Fluids: NS@75 I&O: Intake and Output 04/22/18 04/23/18 19:00 07:00 Intake Total 900 ml 1787.5 ml Output Total 850 ml 660 ml Balance 50 ml 1127.5 ml IV Total 900 ml 1787.5 ml Output Urine Total 850 ml 660 ml # Voids 3 Subjective: Better, less pain, no F/C, no CP, no SOB Labs: Laboratory Tests Test 04/23/18 05:00 04/23/18 11:45 White Blood Count 9.2 K/UL (4.8-10.8) Red Blood Count 2.36 M/UL (4.70-6.10) L Hemoglobin 7.6 G/DL (14.2-18.0) L Hematocrit 22.7 % (42.0-52.0) L Mean Corpuscular Volume 96 FL (80-99) Mean Corpuscular Hemoglobin 32.3 PG (27.0-31.0) H Mean Corpuscular Hemoglobin Concent 33.7 G/DL (32.0-36.0) Red Cell Distribution Width 13.1 % (11.6-14.8) Platelet Count 136 K/UL (150-450) L Mean Platelet Volume 9.4 FL (6.5-10.1) Neutrophils (%) (Auto) % (45.0-75.0) Lymphocytes (%) (Auto) % (20.0-45.0) Monocytes (%) (Auto) % (1.0-10.0) Eosinophils (%) (Auto) % (0.0-3.0) Basophils (%) (Auto) % (0.0-2.0) Differential Total Cells Counted 100 Neutrophils % (Manual) 77 % (45-75) H Lymphocytes % (Manual) 12 % (20-45) L Monocytes % (Manual) 8 % (1-10) Eosinophils % (Manual) 3 % (0-3) Basophils % (Manual) 0 % (0-2) Band Neutrophils 0 % (0-8) Platelet Estimate Decreased L Platelet Morphology Normal Red Blood Cell Morphology Normal Sodium Level 147 MMOL/L (136-145) H Potassium Level 3.6 MMOL/L (3.5-5.1) Chloride Level 120 MMOL/L (98-107) H Carbon Dioxide Level 15 MMOL/L (21-32) L Anion Gap 12 mmol/L (5-15) Blood Urea Nitrogen 34 mg/dL (7-18) H Creatinine 1.7 MG/DL (0.55-1.30) H Estimat Glomerular Filtration Rate 41.0 mL/min (>60) Glucose Level 63 MG/DL (74-106) #L Uric Acid 5.0 MG/DL (2.6-7.2) Calcium Level 7.6 MG/DL (8.5-10.1) L Phosphorus Level 3.2 MG/DL (2.5-4.9) Magnesium Level 2.2 MG/DL (1.8-2.4) Total Bilirubin 0.4 MG/DL (0.2-1.0) Gamma Glutamyl Transpeptidase 121 U/L (5-85) H Aspartate Amino Transf (AST/SGOT) 55 U/L (15-37) H Alanine Aminotransferase (ALT/SGPT) 51 U/L (12-78) Alkaline Phosphatase 156 U/L (46-116) H Total Creatine Kinase 839 U/L (26-308) H Pro-B-Type Natriuretic Peptide 6586 pg/mL (0-125) H Total Protein 5.5 G/DL (6.4-8.2) L Albumin 2.5 G/DL (3.4-5.0) L Globulin 3.0 g/dL Albumin/Globulin Ratio 0.8 (1.0-2.7) L Amylase Level 382 U/L (25-115) H Lipase 1190 U/L (73-393) H Urine Random Sodium 68 mmol/L (20-110) Lennox Mcallister MD Apr 23, 2018 15:16
--- NOTE | 2018-04-23 16:32 | GI Initial Consult Note ---
History of Present Illness General Date patient seen: Apr 23, 2018 Time patient seen: 16:27 Reason for Hospitalization: Flu Like Symptoms Referring physician: SILVIA Reason for Consultation: Choledocholithiasis Present Illness HPI This is a 62-year-old male with a history of diabetes and high blood pressure. He presents with chief complaint of weakness and left leg pain. He had a hip fracture/femur fracture over a year ago. He has surgery done. Since then he said his been in pain. He complaining of pain to that area. He said Ultram is not helping. Pain is 9 out of 10. Worse with movement. Better with rest. No other complaint. No nausea no vomiting. GI consulted for choledocholithiasis. Patient seen, awake alert and oriented x4 no apparent distress. Denies any generalized or abdominal pain at this time. Denies any nausea or vomiting. An MRCP was performed, noted that the common bile duct was dilated up to 13 mm with a minimum of 2 stones. In addition, labs reviewed noted that the patient presented with lipase elevation over 1999. No known history of endoscopic colonoscopies. Home Meds Discontinued Reported Medications Insulin Glargine (LANTUS) 100 Unit/1 Ml Insuln.pen, SUBQ BEDTIME, #1 EA 0 Refills 04/21/18 Allergies: Coded Allergies: No Known Allergies (Unverified , 04/21/18) Patient History History Provided By: Patient, Medical Record PMH Narrative Past Medical History: see triage record, old chart reviewed, DM, HTN Past Surgical History: other Pertinent Family History: none Social History: Denies: smoking Immunizations: other Reviewed Nursing Documentation: PMH: Agreed; PSxH: Agreed Nursing Documentation-PM Past Medical History: No History, Except For Hx Hypertension: Yes Hx Diabetes: Yes Social History: Denies: smoking, alcohol use, drug use, other Review of Systems All Other Systems: negative except mentioned in HPI Physical Exam Vital Signs Date Time Temp Pulse Resp B/P (MAP) Pulse Ox O2 Delivery O2 Flow Rate FiO2 04/21/18 00:51 97.5 70 16 156/88 97 Room Air Sp02 EP Interpretation: reviewed, normal Labs Laboratory Tests Test 04/23/18 05:00 04/23/18 11:45 White Blood Count 9.2 K/UL (4.8-10.8) Red Blood Count 2.36 M/UL (4.70-6.10) L Hemoglobin 7.6 G/DL (14.2-18.0) L Hematocrit 22.7 % (42.0-52.0) L Mean Corpuscular Volume 96 FL (80-99) Mean Corpuscular Hemoglobin 32.3 PG (27.0-31.0) H Mean Corpuscular Hemoglobin Concent 33.7 G/DL (32.0-36.0) Red Cell Distribution Width 13.1 % (11.6-14.8) Platelet Count 136 K/UL (150-450) L Mean Platelet Volume 9.4 FL (6.5-10.1) Neutrophils (%) (Auto) % (45.0-75.0) Lymphocytes (%) (Auto) % (20.0-45.0) Monocytes (%) (Auto) % (1.0-10.0) Eosinophils (%) (Auto) % (0.0-3.0) Basophils (%) (Auto) % (0.0-2.0) Differential Total Cells Counted 100 Neutrophils % (Manual) 77 % (45-75) H Lymphocytes % (Manual) 12 % (20-45) L Monocytes % (Manual) 8 % (1-10) Eosinophils % (Manual) 3 % (0-3) Basophils % (Manual) 0 % (0-2) Band Neutrophils 0 % (0-8) Platelet Estimate Decreased L Platelet Morphology Normal Red Blood Cell Morphology Normal Sodium Level 147 MMOL/L (136-145) H Potassium Level 3.6 MMOL/L (3.5-5.1) Chloride Level 120 MMOL/L (98-107) H Carbon Dioxide Level 15 MMOL/L (21-32) L Anion Gap 12 mmol/L (5-15) Blood Urea Nitrogen 34 mg/dL (7-18) H Creatinine 1.7 MG/DL (0.55-1.30) H Estimat Glomerular Filtration Rate 41.0 mL/min (>60) Glucose Level 63 MG/DL (74-106) #L Uric Acid 5.0 MG/DL (2.6-7.2) Calcium Level 7.6 MG/DL (8.5-10.1) L Phosphorus Level 3.2 MG/DL (2.5-4.9) Magnesium Level 2.2 MG/DL (1.8-2.4) Total Bilirubin 0.4 MG/DL (0.2-1.0) Gamma Glutamyl Transpeptidase 121 U/L (5-85) H Aspartate Amino Transf (AST/SGOT) 55 U/L (15-37) H Alanine Aminotransferase (ALT/SGPT) 51 U/L (12-78) Alkaline Phosphatase 156 U/L (46-116) H Total Creatine Kinase 839 U/L (26-308) H C-Reactive Protein, Quantitative 12.4 mg/dL (0.00-0.90) H Pro-B-Type Natriuretic Peptide 6586 pg/mL (0-125) H Total Protein 5.5 G/DL (6.4-8.2) L Albumin 2.5 G/DL (3.4-5.0) L Globulin 3.0 g/dL Albumin/Globulin Ratio 0.8 (1.0-2.7) L Amylase Level 382 U/L (25-115) H Lipase 1190 U/L (73-393) H Urine Random Sodium 68 mmol/L (20-110) General Appearance: well appearing, no apparent distress, alert, thin Head: normocephalic EENT: PERRL/EOMI, normal ENT inspection Neck: supple Respiratory: normal breath sounds, no respiratory distress Cardiovascular: normal rate Gastrointestinal: normal inspection, non tender, soft, normal bowel sounds, non -distended Rectal: deferred Genitourinary: deferred Musculoskeletal: normal inspection, back normal Neurologic: normal inspection, alert, oriented x3, responsive Psychiatric: normal inspection, judgement/insight normal, memory normal Skin: normal inspection, normal color, no rash, warm/dry, palpation normal, well hydrated Lymphatic: normal inspection, no adenopathy Current Medications Current Medications Medications (Trade) Dose Ordered Sig/Jamal Route PRN Reason Start Time Stop Time Status Last Admin Dose Admin Acetaminophen (Tylenol) 500 mg Q4H PRN ORAL Mild Pain/Temp > 100.5 04/21/18 05:00 05/21/18 04:59 Chlorhexidine Gluconate (Jen-Hex 2%) 1 applic DAILY@1999 TOPIC 04/22/18 20:00 05/22/18 19:59 04/22/18 19:53 Dextrose (Dextrose 50%) 25 ml Q30M PRN IV Hypoglycemia 04/21/18 11:00 05/21/18 10:59 Dextrose (Dextrose 50%) 50 ml Q30M PRN IV Hypoglycemia 04/21/18 11:00 05/21/18 10:59 Folic Acid (Folate) 3 mg DAILY ORAL 04/22/18 17:15 05/22/18 17:14 04/23/18 08:35 Heparin Sodium (Porcine) (Heparin 5000 units/ml) 5,000 units EVERY 12 HOURS SUBQ 04/23/18 21:00 05/23/18 20:59 Insulin Aspart (NovoLOG) BEFORE MEALS AND HS SUBQ 04/21/18 11:30 05/21/18 11:29 Norepinephrine Bitartrate 4 mg/ Dextrose 246 ml @ 7.38 mls/hr Q24H IV 04/21/18 12:00 05/21/18 11:59 04/21/18 12:00 Pantoprazole (Protonix) 40 mg DAILY IVP 04/22/18 09:00 05/22/18 08:59 04/23/18 08:34 Piperacillin Sod/ Tazobactam Sod 3.375 gm/Dextrose 110 ml @ 27.5 mls/hr EVERY 8 HOURS IVPB 04/21/18 14:00 04/26/18 13:59 04/23/18 13:47 Sodium Chloride 1,000 ml @ 75 mls/hr [id number] IV 04/23/18 14:00 05/23/18 13:59 04/23/18 13:47 GI: Plan Problems: (1) Diabetes (2) Gallstone pancreatitis (3) Anemia (4) Dehydration (5) Choledocholithiasis with acute cholecystitis (6) Acute cholecystitis Plan ERCP to be scheduled next Thursday. Maintain n.p.o. plus aggressive IV hydration Pain management Follow labs, trend lipase anemia work up OB stool r/o GI bleed monitor H&H, prn transfusions bowel regime ppi Discussed with Dr. Lambert. Thank you for this patient referral, we will follow. The patient was seen and examined at bedside and all new and available data was reviewed in the patients chart. I agree with the above findings, impression and plan. (Patient seen earlier today. Signature stamp does not reflect patient encounter time.). - MD Evonne Cottrell,Lori TOSCANO Apr 23, 2018 16:32
[2018-04-23] MEDS ORDERED: Acetaminophen 500mg (ES) tab ORAL PRN ×2 (16:54→17:00)
--- NOTE | 2018-04-23 17:14 | Consultation ---
History of Present Illness General Date patient seen: Apr 23, 2018 Chief Complaint: Flu Like Symptoms Referring physician: SILVIA Reason for Consultation: Choledocholithiasis Present Illness Allergies: Coded Allergies: No Known Allergies (Unverified , 04/21/18) Medication History Discontinued Medications Insulin Glargine (Lantus), Unknown Dose SUBQ BEDTIME, (Reported) Discontinued Reason: MD discontinued med Patient History Healthcare decision maker Resuscitation status Full Code Advanced Directive on File Physical Exam Last 24 Hour Vital Signs Date Time Temp Pulse Resp B/P (MAP) Pulse Ox O2 Delivery O2 Flow Rate FiO2 04/23/18 14:00 68 20 125/62 (83) 99 04/23/18 13:00 62 14 114/61 (78) 99 04/23/18 12:00 68 04/23/18 12:00 98.4 69 13 123/60 (81) 100 04/23/18 12:00 Room Air 04/23/18 11:59 127/60 04/23/18 11:00 67 20 106/51 (69) 100 04/23/18 10:00 69 14 128/67 (87) 99 04/23/18 09:00 78 14 131/62 (85) 100 04/23/18 08:00 Room Air 04/23/18 08:00 98.5 68 17 117/54 (75) 98 04/23/18 08:00 70 04/23/18 07:00 80 18 114/62 (79) 100 04/23/18 06:00 81 16 122/54 (76) 100 04/23/18 05:00 78 16 113/49 (70) 99 04/23/18 04:00 Room Air 04/23/18 04:00 98.6 70 16 118/52 (74) 99 04/23/18 04:00 70 04/23/18 03:00 69 16 116/75 (89) 100 04/23/18 02:00 74 15 113/55 (74) 98 04/23/18 01:00 71 14 98/51 (67) 98 04/23/18 00:00 76 04/23/18 00:00 Room Air 04/23/18 00:00 98.2 76 17 103/54 (70) 99 04/22/18 23:00 74 20 109/48 (68) 99 04/22/18 22:00 73 17 116/59 (78) 98 04/22/18 21:00 70 15 117/51 (73) 99 04/22/18 20:00 97.8 72 13 107/54 (71) 100 04/22/18 20:00 Room Air 04/22/18 20:00 72 04/22/18 19:00 72 14 105/60 (75) 99 04/22/18 18:00 64 17 100/52 (68) 99 04/22/18 18:00 74 14 112/59 (76) 99 Intake and Output 04/22/18 04/23/18 19:00 07:00 Intake Total 900 ml 1787.5 ml Output Total 850 ml 660 ml Balance 50 ml 1127.5 ml IV Total 900 ml 1787.5 ml Output Urine Total 850 ml 660 ml # Voids 3 Laboratory Tests Test 04/23/18 05:00 04/23/18 11:45 White Blood Count 9.2 K/UL (4.8-10.8) Red Blood Count 2.36 M/UL (4.70-6.10) L Hemoglobin 7.6 G/DL (14.2-18.0) L Hematocrit 22.7 % (42.0-52.0) L Mean Corpuscular Volume 96 FL (80-99) Mean Corpuscular Hemoglobin 32.3 PG (27.0-31.0) H Mean Corpuscular Hemoglobin Concent 33.7 G/DL (32.0-36.0) Red Cell Distribution Width 13.1 % (11.6-14.8) Platelet Count 136 K/UL (150-450) L Mean Platelet Volume 9.4 FL (6.5-10.1) Neutrophils (%) (Auto) % (45.0-75.0) Lymphocytes (%) (Auto) % (20.0-45.0) Monocytes (%) (Auto) % (1.0-10.0) Eosinophils (%) (Auto) % (0.0-3.0) Basophils (%) (Auto) % (0.0-2.0) Differential Total Cells Counted 100 Neutrophils % (Manual) 77 % (45-75) H Lymphocytes % (Manual) 12 % (20-45) L Monocytes % (Manual) 8 % (1-10) Eosinophils % (Manual) 3 % (0-3) Basophils % (Manual) 0 % (0-2) Band Neutrophils 0 % (0-8) Platelet Estimate Decreased L Platelet Morphology Normal Red Blood Cell Morphology Normal Sodium Level 147 MMOL/L (136-145) H Potassium Level 3.6 MMOL/L (3.5-5.1) Chloride Level 120 MMOL/L (98-107) H Carbon Dioxide Level 15 MMOL/L (21-32) L Anion Gap 12 mmol/L (5-15) Blood Urea Nitrogen 34 mg/dL (7-18) H Creatinine 1.7 MG/DL (0.55-1.30) H Estimat Glomerular Filtration Rate 41.0 mL/min (>60) Glucose Level 63 MG/DL (74-106) #L Uric Acid 5.0 MG/DL (2.6-7.2) Calcium Level 7.6 MG/DL (8.5-10.1) L Phosphorus Level 3.2 MG/DL (2.5-4.9) Magnesium Level 2.2 MG/DL (1.8-2.4) Total Bilirubin 0.4 MG/DL (0.2-1.0) Gamma Glutamyl Transpeptidase 121 U/L (5-85) H Aspartate Amino Transf (AST/SGOT) 55 U/L (15-37) H Alanine Aminotransferase (ALT/SGPT) 51 U/L (12-78) Alkaline Phosphatase 156 U/L (46-116) H Total Creatine Kinase 839 U/L (26-308) H C-Reactive Protein, Quantitative 12.4 mg/dL (0.00-0.90) H Pro-B-Type Natriuretic Peptide 6586 pg/mL (0-125) H Total Protein 5.5 G/DL (6.4-8.2) L Albumin 2.5 G/DL (3.4-5.0) L Globulin 3.0 g/dL Albumin/Globulin Ratio 0.8 (1.0-2.7) L Amylase Level 382 U/L (25-115) H Lipase 1190 U/L (73-393) H Urine Random Sodium 68 mmol/L (20-110) Microbiology Date/Time Source Procedure Growth Status 04/23/18 11:10 Stool Clostridium difficile Toxin Assay - Final Complete Height (Feet): 5 Height (Inches): 6.00 Weight (Pounds): 140 Medications Current Medications Medications (Trade) Dose Ordered Sig/Jamal Route PRN Reason Start Time Stop Time Status Last Admin Dose Admin Acetaminophen (Tylenol) 500 mg Q4H PRN ORAL Mild Pain/Temp > 100.5 04/23/18 17:00 05/23/18 16:59 Chlorhexidine Gluconate (Jen-Hex 2%) 1 applic DAILY@2000 TOPIC 04/23/18 20:00 05/22/18 19:59 Dextrose (Dextrose 50%) 25 ml Q30M PRN IV Hypoglycemia 04/23/18 17:00 05/21/18 10:59 Dextrose (Dextrose 50%) 50 ml Q30M PRN IV Hypoglycemia 04/23/18 17:00 05/21/18 10:59 Folic Acid (Folate) 3 mg DAILY ORAL 04/24/18 09:00 05/22/18 17:14 Heparin Sodium (Porcine) (Heparin 5000 units/ml) 5,000 units EVERY 12 HOURS SUBQ 04/23/18 21:00 05/23/18 20:59 Insulin Aspart (NovoLOG) BEFORE MEALS AND HS SUBQ 04/23/18 21:00 05/21/18 11:29 Pantoprazole (Protonix) 40 mg DAILY IVP 04/24/18 09:00 05/22/18 08:59 Piperacillin Sod/ Tazobactam Sod 3.375 gm/Dextrose 110 ml @ 27.5 mls/hr EVERY 8 HOURS IVPB 04/23/18 22:00 04/28/18 21:59 Sodium Chloride 1,000 ml @ 75 mls/hr [id number] IV 04/23/18 17:00 05/23/18 16:52 04/23/18 17:08 Assessment/Plan Assessment/Plan Hematology Consultation Reason for Hospitalization: Flu Like Symptoms Referring physician: HANNAH VEGA DOS: 02/20/19 Reason for Consultation: Low plts and anemia chronic disease ID 62-year-old male with a history of diabetes and high blood pressure. He presents with chief complaint of weakness and left leg pain. He had a hip fracture/femur fracture over a year ago. He has surgery done. Since then he said his been in pain. He complaining of pain to that area. He said Ultra is not helping. Pain is 9 out of 10. Worse with movement. Better with rest. No other complaint. No nausea no vomiting. GI consulted for choledocholithiasis. Patient seen, awake alert and oriented x4 no apparent distress. Denies any generalized or abdominal pain at this time. Denies any nausea or vomiting. An MRCP was performed, noted that the common bile duct was dilated up to 13 mm with a minimum of 2 stones. In addition, labs reviewed noted that the patient presented with lipase elevation over 1999. No known history of endoscopic colonoscopies. ERCP scheduled for thursday. Meds Discontinued Reported Medications Insulin Glargine (LANTUS) 100 Unit/1 Ml Insuln.pen, SUBQ BEDTIME, #1 EA 0 Refills 04/21/18 Coded Allergies: No Known Allergies (Unverified , 04/21/18) Patient History History Provided By: Patient, Medical Record PMH Narrative Past Medical History: see triage record, old chart reviewed, DM, HTN Past Surgical History: other Pertinent Family History: none Social History: Denies: smoking Immunizations: other Reviewed Nursing Documentation: PMH: Agreed; PSxH: Agreed Past Medical History: No History, Except For Hx Hypertension: Yes Hx Diabetes: Yes Social History: Denies: smoking, alcohol use, drug use, other Physical Exam Vital Signs Date Time Temp Pulse Resp B/P (MAP) Pulse Ox O2 Delivery O2 Flow Rate FiO2 04/21/18 00:51 97.5 70 16 156/88 97 Room Air Sp02 EP Interpretation: reviewed, normal Labs Laboratory Tests Test 04/23/18 05:00 04/23/18 11:45 White Blood Count 9.2 K/UL (4.8-10.8) Red Blood Count 2.36 M/UL (4.70-6.10) L Hemoglobin 7.6 G/DL (14.2-18.0) L Hematocrit 22.7 % (42.0-52.0) L Mean Corpuscular Volume 96 FL (80-99) Mean Corpuscular Hemoglobin 32.3 PG (27.0-31.0) H Mean Corpuscular Hemoglobin Concent 33.7 G/DL (32.0-36.0) Red Cell Distribution Width 13.1 % (11.6-14.8) Platelet Count 136 K/UL (150-450) L Mean Platelet Volume 9.4 FL (6.5-10.1) Neutrophils (%) (Auto) % (45.0-75.0) Lymphocytes (%) (Auto) % (20.0-45.0) Monocytes (%) (Auto) % (1.0-10.0) Eosinophils (%) (Auto) % (0.0-3.0) Basophils (%) (Auto) % (0.0-2.0) Differential Total Cells Counted 100 Neutrophils % (Manual) 77 % (45-75) H Lymphocytes % (Manual) 12 % (20-45) L Monocytes % (Manual) 8 % (1-10) Eosinophils % (Manual) 3 % (0-3) Basophils % (Manual) 0 % (0-2) Band Neutrophils 0 % (0-8) Platelet Estimate Decreased L Platelet Morphology Normal Red Blood Cell Morphology Normal Sodium Level 147 MMOL/L (136-145) H Potassium Level 3.6 MMOL/L (3.5-5.1) Chloride Level 120 MMOL/L (98-107) H Carbon Dioxide Level 15 MMOL/L (21-32) L Anion Gap 12 mmol/L (5-15) Blood Urea Nitrogen 34 mg/dL (7-18) H Creatinine 1.7 MG/DL (0.55-1.30) H Estimat Glomerular Filtration Rate 41.0 mL/min (>60) Glucose Level 63 MG/DL (74-106) #L Uric Acid 5.0 MG/DL (2.6-7.2) Calcium Level 7.6 MG/DL (8.5-10.1) L Phosphorus Level 3.2 MG/DL (2.5-4.9) Magnesium Level 2.2 MG/DL (1.8-2.4) Total Bilirubin 0.4 MG/DL (0.2-1.0) Gamma Glutamyl Transpeptidase 121 U/L (5-85) H Aspartate Amino Transf (AST/SGOT) 55 U/L (15-37) H Alanine Aminotransferase (ALT/SGPT) 51 U/L (12-78) Alkaline Phosphatase 156 U/L (46-116) H Total Creatine Kinase 839 U/L (26-308) H C-Reactive Protein, Quantitative 12.4 mg/dL (0.00-0.90) H Pro-B-Type Natriuretic Peptide 6586 pg/mL (0-125) H Total Protein 5.5 G/DL (6.4-8.2) L Albumin 2.5 G/DL (3.4-5.0) L Globulin 3.0 g/dL Albumin/Globulin Ratio 0.8 (1.0-2.7) L Amylase Level 382 U/L (25-115) H Lipase 1190 U/L (73-393) H Urine Random Sodium 68 mmol/L (20-110) General Appearance: well appearing, no apparent distress, alert, thin Head: normocephalic EENT: PERRL/EOMI, normal ENT inspection Neck: supple Respiratory: normal breath sounds, no respiratory distress Cardiovascular: normal rate Gastrointestinal: normal inspection, non tender, soft Rectal: deferred Genitourinary: deferred Musculoskeletal: normal inspection, back normal Neurologic: normal inspection, alert, oriented x3, responsive Psychiatric: normal inspection, judgement/insight normal, memory normal Skin: normal inspection, normal color, no rash, warm/dry, palpation normal, well hydrated Lymphatic: normal inspection, no adenopathy Current Medications Current Medications Medications (Trade) Dose Ordered Sig/Jamal Route PRN Reason Start Time Stop Time Status Last Admin Dose Admin Acetaminophen (Tylenol) 500 mg Q4H PRN ORAL Mild Pain/Temp > 100.5 04/21/18 05:00 05/21/18 04:59 Chlorhexidine Gluconate (Jen-Hex 2%) 1 applic DAILY@2000 TOPIC 04/22/18 20:00 05/22/18 19:59 04/22/18 19:53 Dextrose (Dextrose 50%) 25 ml Q30M PRN IV Hypoglycemia 04/21/18 11:00 05/21/18 10:59 Dextrose (Dextrose 50%) 50 ml Q30M PRN IV Hypoglycemia 04/21/18 11:00 05/21/18 10:59 Folic Acid (Folate) 3 mg DAILY ORAL 04/22/18 17:15 05/22/18 17:14 04/23/18 08:35 Heparin Sodium (Porcine) (Heparin 5000 units/ml) 5,000 units EVERY 12 HOURS SUBQ 04/23/18 21:00 05/23/18 20:59 Insulin Aspart (NovoLOG) BEFORE MEALS AND HS SUBQ 04/21/18 11:30 05/21/18 11:29 Norepinephrine Bitartrate 4 mg/ Dextrose 246 ml @ 7.38 mls/hr Q24H IV 04/21/18 12:00 05/21/18 11:59 04/21/18 12:00 Pantoprazole (Protonix) 40 mg DAILY IVP 04/22/18 09:00 05/22/18 08:59 04/23/18 08:34 Piperacillin Sod/ Tazobactam Sod 3.375 gm/Dextrose 110 ml @ 27.5 mls/hr EVERY 8 HOURS IVPB 04/21/18 14:00 04/26/18 13:59 04/23/18 13:47 Sodium Chloride 1,000 ml @ 75 mls/hr [id number] IV 04/23/18 14:00 05/23/18 13:59 04/23/18 13:47 ROS: Constitutional: No fever, no chills, no night sweats, no fatigue Skin: No rashes, lumps, itchiness, dryness HEENT: No L[place]S, ear ache, visual changes, double vision, nosebleeds, sore throat, lumps, swollen glands Breasts: No lumps, pain, discharge Pulmonary: No cough, sputum, shortness of breath, coughing up blood, hemoptysis Cardiovascular: No chest pain, tightness, palpitations, syncope, claudication, orthopnea, PND GI: No nausea, vomiting, diarrhea, melena, hematochezia, change in appetite, abdominal pain : No dysuria, frequency, urgency, urinary incontinence, foamy urine Musculoskeletal: No joint swelling or muscle pain, trauma, back pain Neurologic: No dizziness, fainting, seizures, changes in smell or taste Psychiatric: No nervousness, stress, or depression, anxiety, hallucinations Endocrine: No weight change, heat or cold intolerance, tremor, insomnia Assessment and Recs: # Anemia of chronic disease - likely multifactorial and h/h has been relatively stable --> Anemia workup has been ordered --> No evidence of hemolysis is noted, peripheral smear has been reviewed. --> Hgb goal >7. Transfuse prn. --> Epogen or iron at this time is not particularly indicated # Thrombocytopenia likely due to liver disease/cirrhosis --> Medications have been reviewed --> if the plt count less than 10k, transfuse immediately. If less than 20k and febrile, transfuse --> If less than 50k and bleeding, transfuse. If neurosurgical bleed, transfuse as well # Sepsis - continue antibiotics with ID service, appreciate recs --> likely due to gallstone pancreatitis # Dehydration --> per renal # Choledocholithiasis with acute cholecystitis --> ERCP to be scheduled next Thursday. # Acute cholecystitis --> bowel regime, ppi --> surg following The timing of this note does not necessarily reflect the time of the patient was seen. Greatly appreciate consultation! Guero Hernandez MD Apr 23, 2018 17:14
[2018-04-23 19:53] LABS: INR 1.2 (0.9-1.1)
[2018-04-23] MEDS ORDERED: Dyna-Hex 2% Top Sol 2oz TOPIC SCH ×2 (20:00)
[2018-04-23] MEDS ORDERED: Heparin 5000 units/ml inj SUBQ SCH ×2 (21:00)
[2018-04-23] MEDS ORDERED: NovoLOG Insulin Flexpen SUBQ SCH (21:00)
--- NOTE | 2018-04-23 21:30 | Consultation ---
DATE OF CONSULTATION: 04/23/2018 REASON FOR CONSULTATION: Urinary retention and BPH. HISTORY OF PRESENT ILLNESS: The patient was seen today. He is currently in the ICU. He was admitted to the hospital and primary physician had concern of his urinary retention and BPH. Currently, the patient is voiding spontaneously. His chart was reviewed as well as his review of symptoms and medications. PHYSICAL EXAMINATION: VITAL SIGNS: He is currently afebrile. Vital signs are stable. LUNGS: Clear to auscultation. CARDIOVASCULAR: Regular rate and rhythm. ABDOMEN: Soft and nontender. Bowel sounds are positive. RECTAL: Shows mildly enlarged prostate with some . ASSESSMENT AND PLAN: The patient has mild BPH but he is voiding spontaneously without hematuria. I will follow the patient with you. Alpha anais is recommended. Thank you for the consultation. Cameron Pedraza M.D. DR: SHAQ JOB#: [id number] CC:
[2018-04-23] MEDS ORDERED: Piperacillin/Tazobactam 3.375 GM in D5W 110 ML IVPB SCH (22:00)
--- NOTE | 2018-04-23 22:01 | Cardiology Progress Note ---
Assessment/Plan Assessment/Plan 1. Septic shock, off pressors, continue hydration. Echo reveals normal LV systolic and diastolic function. 2. JONA, improving. 3. History of diabetes mellitus. 4. History of hypertension. 5. Gallstone pancreatitis. Subjective Subjective Sinus rhythm at rate of 72. On room air. Objective Last 24 Hour Vital Signs Date Time Temp Pulse Resp B/P (MAP) Pulse Ox O2 Delivery O2 Flow Rate FiO2 04/23/18 20:00 Room Air 04/23/18 16:00 72 04/23/18 16:00 97.6 70 14 149/66 (93) 100 04/23/18 16:00 Room Air 04/23/18 15:00 74 15 131/56 (81) 99 04/23/18 14:00 68 20 125/62 (83) 99 04/23/18 13:00 62 14 114/61 (78) 99 04/23/18 12:00 68 04/23/18 12:00 98.4 69 13 123/60 (81) 100 04/23/18 12:00 Room Air 04/23/18 11:59 127/60 04/23/18 11:00 67 20 106/51 (69) 100 04/23/18 10:00 69 14 128/67 (87) 99 04/23/18 09:00 78 14 131/62 (85) 100 04/23/18 08:00 Room Air 04/23/18 08:00 98.5 68 17 117/54 (75) 98 04/23/18 08:00 70 04/23/18 07:00 80 18 114/62 (79) 100 04/23/18 06:00 81 16 122/54 (76) 100 04/23/18 05:00 78 16 113/49 (70) 99 04/23/18 04:00 Room Air 04/23/18 04:00 98.6 70 16 118/52 (74) 99 04/23/18 04:00 70 04/23/18 03:00 69 16 116/75 (89) 100 04/23/18 02:00 74 15 113/55 (74) 98 04/23/18 01:00 71 14 98/51 (67) 98 04/23/18 00:00 76 04/23/18 00:00 Room Air 04/23/18 00:00 98.2 76 17 103/54 (70) 99 04/22/18 23:00 74 20 109/48 (68) 99 04/22/18 22:00 73 17 116/59 (78) 98 Intake and Output 04/22/18 04/23/18 19:00 07:00 Intake Total 900 ml 1787.5 ml Output Total 850 ml 660 ml Balance 50 ml 1127.5 ml IV Total 900 ml 1787.5 ml Output Urine Total 850 ml 660 ml # Voids 3 2D Echo: LVEF 55%, RVSP 42 mmHg Laboratory Tests Test 04/23/18 05:00 04/23/18 11:45 04/23/18 18:05 White Blood Count 9.2 K/UL (4.8-10.8) Red Blood Count 2.36 M/UL (4.70-6.10) L Hemoglobin 7.6 G/DL (14.2-18.0) L Hematocrit 22.7 % (42.0-52.0) L Mean Corpuscular Volume 96 FL (80-99) Mean Corpuscular Hemoglobin 32.3 PG (27.0-31.0) H Mean Corpuscular Hemoglobin Concent 33.7 G/DL (32.0-36.0) Red Cell Distribution Width 13.1 % (11.6-14.8) Platelet Count 136 K/UL (150-450) L Mean Platelet Volume 9.4 FL (6.5-10.1) Neutrophils (%) (Auto) % (45.0-75.0) Lymphocytes (%) (Auto) % (20.0-45.0) Monocytes (%) (Auto) % (1.0-10.0) Eosinophils (%) (Auto) % (0.0-3.0) Basophils (%) (Auto) % (0.0-2.0) Differential Total Cells Counted 100 Neutrophils % (Manual) 77 % (45-75) H Lymphocytes % (Manual) 12 % (20-45) L Monocytes % (Manual) 8 % (1-10) Eosinophils % (Manual) 3 % (0-3) Basophils % (Manual) 0 % (0-2) Band Neutrophils 0 % (0-8) Platelet Estimate Decreased L Platelet Morphology Normal Red Blood Cell Morphology Normal Sodium Level 147 MMOL/L (136-145) H Potassium Level 3.6 MMOL/L (3.5-5.1) Chloride Level 120 MMOL/L (98-107) H Carbon Dioxide Level 15 MMOL/L (21-32) L Anion Gap 12 mmol/L (5-15) Blood Urea Nitrogen 34 mg/dL (7-18) H Creatinine 1.7 MG/DL (0.55-1.30) H Estimat Glomerular Filtration Rate 41.0 mL/min (>60) Glucose Level 63 MG/DL (74-106) #L Uric Acid 5.0 MG/DL (2.6-7.2) Calcium Level 7.6 MG/DL (8.5-10.1) L Phosphorus Level 3.2 MG/DL (2.5-4.9) Magnesium Level 2.2 MG/DL (1.8-2.4) Total Bilirubin 0.4 MG/DL (0.2-1.0) Gamma Glutamyl Transpeptidase 121 U/L (5-85) H Aspartate Amino Transf (AST/SGOT) 55 U/L (15-37) H Alanine Aminotransferase (ALT/SGPT) 51 U/L (12-78) Alkaline Phosphatase 156 U/L (46-116) H Total Creatine Kinase 839 U/L (26-308) H C-Reactive Protein, Quantitative 12.4 mg/dL (0.00-0.90) H Pro-B-Type Natriuretic Peptide 6586 pg/mL (0-125) H Total Protein 5.5 G/DL (6.4-8.2) L Albumin 2.5 G/DL (3.4-5.0) L Globulin 3.0 g/dL Albumin/Globulin Ratio 0.8 (1.0-2.7) L Amylase Level 382 U/L (25-115) H Lipase 1190 U/L (73-393) H Urine Random Sodium 68 mmol/L (20-110) Prothrombin Time 13.0 SEC (9.30-11.50) H Prothromb Time International Ratio 1.2 (0.9-1.1) H Fibrinogen 398 mg/dL (200-400) Hepatitis A IgM Antibody Pending Hepatitis B Surface Antigen Pending Hepatitis B Core IgM Antibody Pending Hepatitis C Antibody Pending HIV (1&2) Antibody Rapid Negative (NEGATIVE) Microbiology Date/Time Source Procedure Growth Status 04/21/18 12:00 Blood Blood Culture - Preliminary NO GROWTH AFTER 24 HOURS Resulted 04/21/18 12:00 Blood Blood Culture - Preliminary NO GROWTH AFTER 24 HOURS Resulted 04/21/18 07:15 Nasal Nares MRSA Culture - Final NO METHICILLIN RESISTANT STAPH AUREUS... Complete 04/23/18 11:10 Stool Clostridium difficile Toxin Assay - Final Complete 04/22/18 03:25 Urine,Clean Catch Urine Culture - Preliminary Gram Negative Bacillus 1 Resulted 04/21/18 07:15 Rectum VRE Culture - Final NO VANCOMYCIN RESISTANT ENTEROCOCCUS ... Complete 04/21/18 07:15 Rectum - Final NO CARBAPENEM-RESISTANT ENTEROBACTERI... Complete Objective HEENT: Atraumatic, normocephalic. ENT, pupils are equal, round, and reactive to light and accommodation. Extraocular muscles intact. NECK: JVP less than 5 cm. No carotid bruit. Carotid upstrokes 2+ bilaterally. CARDIOVASCULAR SYSTEM: Normal S1, S2. Regular rate and rhythm. No murmurs, gallops, or rubs. PMI is at fourth intercostal space at midclavicular line. LUNGS: Clear to auscultation bilaterally. ABDOMEN: Soft, nontender, and nondistended. No hepatosplenomegaly. Positive bowel sounds. EXTREMITIES: No evidence of edema, clubbing, or cyanosis. Alvaro Hargrove MD Apr 23, 2018 22:01
[2018-04-23] MEDS: Heparin 5000 units/ml inj SUBQ SCH (22:03)
--- NOTE | 2018-04-23 23:14 | General Progress Note ---
Assessment/Plan Problem List: (1) ARF (acute renal failure) ICD Codes: N17.9 - Acute kidney failure, unspecified SNOMED: 54935600 Qualifiers: Qualified Codes: N17.9 - Acute kidney failure, unspecified (2) Hypovolemic shock ICD Codes: R57.1 - Hypovolemic shock SNOMED: 31198474 (3) JONA (acute kidney injury) ICD Codes: N17.9 - Acute kidney failure, unspecified SNOMED: 71832324 Status: progressing Assessment/Plan urology consult w dr dickey r/o obstructive uropathy arf improving dry reviewed labs and meds hypotension despite fluid challenge weak debilitated Subjective ROS Limited/Unobtainable: Yes Allergies: Coded Allergies: No Known Allergies (Unverified , 04/21/18) Objective Last 24 Hour Vital Signs Date Time Temp Pulse Resp B/P (MAP) Pulse Ox O2 Delivery O2 Flow Rate FiO2 04/23/18 20:00 Room Air 04/23/18 20:00 98.0 73 16 132/78 (96) 97 04/23/18 16:00 72 04/23/18 16:00 97.6 70 14 149/66 (93) 100 04/23/18 16:00 Room Air 04/23/18 15:00 74 15 131/56 (81) 99 04/23/18 14:00 68 20 125/62 (83) 99 04/23/18 13:00 62 14 114/61 (78) 99 04/23/18 12:00 68 04/23/18 12:00 98.4 69 13 123/60 (81) 100 04/23/18 12:00 Room Air 04/23/18 11:59 127/60 04/23/18 11:00 67 20 106/51 (69) 100 04/23/18 10:00 69 14 128/67 (87) 99 04/23/18 09:00 78 14 131/62 (85) 100 04/23/18 08:00 Room Air 04/23/18 08:00 98.5 68 17 117/54 (75) 98 04/23/18 08:00 70 04/23/18 07:00 80 18 114/62 (79) 100 04/23/18 06:00 81 16 122/54 (76) 100 04/23/18 05:00 78 16 113/49 (70) 99 04/23/18 04:00 Room Air 04/23/18 04:00 98.6 70 16 118/52 (74) 99 04/23/18 04:00 70 04/23/18 03:00 69 16 116/75 (89) 100 04/23/18 02:00 74 15 113/55 (74) 98 04/23/18 01:00 71 14 98/51 (67) 98 04/23/18 00:00 76 04/23/18 00:00 Room Air 04/23/18 00:00 98.2 76 17 103/54 (70) 99 Intake and Output 04/22/18 04/23/18 19:00 07:00 Intake Total 900 ml 1787.5 ml Output Total 850 ml 660 ml Balance 50 ml 1127.5 ml IV Total 900 ml 1787.5 ml Output Urine Total 850 ml 660 ml # Voids 3 Laboratory Tests 04/23/18 05:00: White Blood Count 9.2, Red Blood Count 2.36L, Hemoglobin 7.6L, Hematocrit 22.7L , Mean Corpuscular Volume 96, Mean Corpuscular Hemoglobin 32.3H, Mean Corpuscular Hemoglobin Concent 33.7, Red Cell Distribution Width 13.1, Platelet Count 136L, Mean Platelet Volume 9.4, Neutrophils (%) (Auto) , Lymphocytes (%) ( Auto) , Monocytes (%) (Auto) , Eosinophils (%) (Auto) , Basophils (%) (Auto) , Differential Total Cells Counted 100, Neutrophils % (Manual) 77H, Lymphocytes % (Manual) 12L, Monocytes % (Manual) 8, Eosinophils % (Manual) 3, Basophils % ( Manual) 0, Band Neutrophils 0, Platelet Estimate DecreasedL, Platelet Morphology Normal, Red Blood Cell Morphology Normal, Sodium Level 147H, Potassium Level 3.6, Chloride Level 120H, Carbon Dioxide Level 15L, Anion Gap 12 , Blood Urea Nitrogen 34H, Creatinine 1.7H, Estimat Glomerular Filtration Rate 41.0, Glucose Level 63#L, Uric Acid 5.0, Calcium Level 7.6L, Phosphorus Level 3.2, Magnesium Level 2.2, Total Bilirubin 0.4, Gamma Glutamyl Transpeptidase 121H, Aspartate Amino Transf (AST/SGOT) 55H, Alanine Aminotransferase (ALT/SGPT ) 51, Alkaline Phosphatase 156H, Total Creatine Kinase 839H, C-Reactive Protein , Quantitative 12.4H, Pro-B-Type Natriuretic Peptide 6586H, Total Protein 5.5L, Albumin 2.5L, Globulin 3.0, Albumin/Globulin Ratio 0.8L, Amylase Level 382H, Lipase 1190H 04/23/18 11:45: Urine Random Sodium 68 04/23/18 18:05: Prothrombin Time 13.0H, Prothromb Time International Ratio 1.2H, Fibrinogen 398 , Hepatitis A IgM Antibody [Pending], Hepatitis B Surface Antigen [Pending], Hepatitis B Core IgM Antibody [Pending], Hepatitis C Antibody [Pending], HIV (1& 2) Antibody Rapid Negative Height (Feet): 5 Height (Inches): 6.00 Weight (Pounds): 140 Cardiovascular: normal rate Respiratory/Chest: lungs clear Abdomen: soft Oksana Casey MD Apr 23, 2018 23:14
[2018-04-24] VITALS: BP 136/74
[2018-04-24 04:00] VITALS: BP 140/65
[2018-04-24 05:22] LABS: HEMATOCRIT 24.2 % (42.0-52.0); HEMOGLOBIN 7.9 G/DL (14.2-18.0); MEAN CORPUSCULAR VOLUME 96 FL (80-99); PLATELET COUNT 162 K/UL (150-450); RED BLOOD COUNT 2.51 M/UL (4.70-6.10); RED CELL DISTRIBUTION WIDTH 12.9 % (11.6-14.8); WHITE BLOOD COUNT 8.5 K/UL (4.8-10.8)
[2018-04-24] MEDS: Piperacillin/Tazobactam 3.375 GM in D5W 110 ML IVPB SCH ×3 (05:53→22:00)
[2018-04-24] MEDS: NovoLOG Insulin Flexpen SUBQ SCH ×5 (05:54→21:01)
[2018-04-24 06:06] LABS: ALANINE AMINOTRANSFERASE 43 U/L (12-78); ALBUMIN 2.5 G/DL (3.4-5.0); ALBUMIN/GLOBULIN RATIO 0.8 (1.0-2.7); ALKALINE PHOSPHATASE 163 U/L (46-116); ANION GAP 12 mmol/L (5-15); ASPARTATE AMINO TRANSFERASE 35 U/L (15-37); BILIRUBIN,TOTAL 0.6 MG/DL (0.2-1.0); BLOOD UREA NITROGEN 24 mg/dL (7-18); CALCIUM 8.4 MG/DL (8.5-10.1); CARBON DIOXIDE 17 MMOL/L (21-32); CHLORIDE 120 MMOL/L (98-107); CREATINE KINASE 322 U/L (26-308); CREATININE 1.3 MG/DL (0.55-1.30); GAMMA GLUTAMYL TRANSPEPTIDASE 128 U/L (5-85); PHOSPHORUS 2.7 MG/DL (2.5-4.9); POTASSIUM 3.8 MMOL/L (3.5-5.1); SODIUM 148 MMOL/L (136-145)
[2018-04-24 08:00] VITALS: BP 141/70
[2018-04-24] MEDS: Heparin 5000 units/ml inj SUBQ SCH ×2 (08:36→21:02)
[2018-04-24] MEDS ORDERED: Pantoprazole Inj IVP SCH ×2 (09:00)
--- NOTE | 2018-04-24 10:27 | Pulmonology Progress Note ---
Assessment/Plan Assessment/Plan Pulmonary Progress Note Problems: (1) Anemia (2) Dehydration (3) JONA (acute kidney injury) (4) Choledocholithiasis with acute cholecystitis (5) Gallstone pancreatitis (6) Metabolic acidosis (7) Hypovolemic shock (8) Leg pain, left Assessment/Plan: ASSESSMENT: The patient is a 62-year-old male with a history of diabetes, hypertension, vasculopathy, likely CKD presenting with leg pain in the setting of dehydration and anion gap metabolic acidosis, likely sepsis. He is hypotensive with profound volume depletion. His w/u is consistent with gallstone pancreatitis and likely acute cholecystitis/choledocholithiasis PROBLEM LIST: 1. Shock, hypovolemic. 2. Gallstone pancreatitis 3. Acute cholelithiasis, possible choledocholithiasis 4. Leg pain. 5. JONA likely on CKD. 6. Anion-gap metabolic acidosis. 7. Leukocytosis. 8. Anemia. 9. Diabetes. 10. History of hypertension. 11. History of hip fracture. 12. History of vasculopathy. 13. Toe amputations and TMA. TREATMENT PLAN: 1. IVF 2. Off NE 3. Zosyn D #3 per ID 4. F/U Cx's and C diff 5. Bowel rest, NPO, IVF 6. venous and arterial duplex negative for DVT or ischemia 7. F/U surgery and GI recs: med management, plan for ERCP thursday 8. Monitor volumes and renal function 9. DVT prophylaxis heparin subcutaneous. 10. SSI, monit or BS 11. FC CCT 30 Objective Vital Signs Noted Status: awake Condition: improving HEENT: atraumatic, normocephalic Lungs: clear Heart: HR/BP stable Abdomen: soft, non-tender, active bowel sounds Extremities: no C/C/E, other - TMA and toe amps Micro: Microbiology Date/Time Source Procedure Growth Status 04/21/18 12:00 Blood Blood Culture - Preliminary NO GROWTH AFTER 24 HOURS Resulted 04/21/18 12:00 Blood Blood Culture - Preliminary NO GROWTH AFTER 24 HOURS Resulted 04/21/18 07:15 Nasal Nares MRSA Culture - Final NO METHICILLIN RESISTANT STAPH AUREUS... Complete 04/22/18 03:25 Urine,Clean Catch Urine Culture - Preliminary Gram Negative Bacillus 1 Resulted 04/21/18 07:15 Rectum VRE Culture - Final NO VANCOMYCIN RESISTANT ENTEROCOCCUS ... Complete 04/21/18 07:15 Rectum - Final NO CARBAPENEM-RESISTANT ENTEROBACTERI... Complete AFVSS off pressors, LFTs and CR better ERCP thursday IVF reduced Subjective: Better, less pain, no F/C, no CP, no SOB Labs: Laboratory Tests Test 04/23/18 05:00 04/23/18 11:45 White Blood Count 9.2 K/UL (4.8-10.8) Red Blood Count 2.36 M/UL (4.70-6.10) L Hemoglobin 7.6 G/DL (14.2-18.0) L Hematocrit 22.7 % (42.0-52.0) L Mean Corpuscular Volume 96 FL (80-99) Mean Corpuscular Hemoglobin 32.3 PG (27.0-31.0) H Mean Corpuscular Hemoglobin Concent 33.7 G/DL (32.0-36.0) Red Cell Distribution Width 13.1 % (11.6-14.8) Platelet Count 136 K/UL (150-450) L Mean Platelet Volume 9.4 FL (6.5-10.1) Neutrophils (%) (Auto) % (45.0-75.0) Lymphocytes (%) (Auto) % (20.0-45.0) Monocytes (%) (Auto) % (1.0-10.0) Eosinophils (%) (Auto) % (0.0-3.0) Basophils (%) (Auto) % (0.0-2.0) Differential Total Cells Counted 100 Neutrophils % (Manual) 77 % (45-75) H Lymphocytes % (Manual) 12 % (20-45) L Monocytes % (Manual) 8 % (1-10) Eosinophils % (Manual) 3 % (0-3) Basophils % (Manual) 0 % (0-2) Band Neutrophils 0 % (0-8) Platelet Estimate Decreased L Platelet Morphology Normal Red Blood Cell Morphology Normal Sodium Level 147 MMOL/L (136-145) H Potassium Level 3.6 MMOL/L (3.5-5.1) Chloride Level 120 MMOL/L (98-107) H Carbon Dioxide Level 15 MMOL/L (21-32) L Anion Gap 12 mmol/L (5-15) Blood Urea Nitrogen 34 mg/dL (7-18) H Creatinine 1.7 MG/DL (0.55-1.30) H Estimat Glomerular Filtration Rate 41.0 mL/min (>60) Glucose Level 63 MG/DL (74-106) #L Uric Acid 5.0 MG/DL (2.6-7.2) Calcium Level 7.6 MG/DL (8.5-10.1) L Phosphorus Level 3.2 MG/DL (2.5-4.9) Magnesium Level 2.2 MG/DL (1.8-2.4) Total Bilirubin 0.4 MG/DL (0.2-1.0) Gamma Glutamyl Transpeptidase 121 U/L (5-85) H Aspartate Amino Transf (AST/SGOT) 55 U/L (15-37) H Alanine Aminotransferase (ALT/SGPT) 51 U/L (12-78) Alkaline Phosphatase 156 U/L (46-116) H Total Creatine Kinase 839 U/L (26-308) H Pro-B-Type Natriuretic Peptide 6586 pg/mL (0-125) H Total Protein 5.5 G/DL (6.4-8.2) L Albumin 2.5 G/DL (3.4-5.0) L Globulin 3.0 g/dL Albumin/Globulin Ratio 0.8 (1.0-2.7) L Amylase Level 382 U/L (25-115) H Lipase 1190 U/L (73-393) H Urine Random Sodium 68 mmol/L (20-110) Subjective ROS Limited/Unobtainable: No Allergies: Coded Allergies: No Known Allergies (Unverified , 04/21/18) Objective Last 24 Hour Vital Signs Date Time Temp Pulse Resp B/P (MAP) Pulse Ox O2 Delivery O2 Flow Rate FiO2 04/24/18 09:48 68 04/24/18 08:00 97.5 71 16 141/70 (93) 99 04/24/18 08:00 Room Air 04/24/18 04:00 97.9 75 16 140/65 (90) 97 04/24/18 04:00 Room Air 04/24/18 03:47 73 04/24/18 00:00 98.9 76 16 136/74 (94) 96 04/24/18 00:00 Room Air 04/23/18 23:36 74 04/23/18 20:00 Room Air 04/23/18 20:00 98.0 73 16 132/78 (96) 97 04/23/18 19:48 69 04/23/18 16:00 72 04/23/18 16:00 97.6 70 14 149/66 (93) 100 04/23/18 16:00 Room Air 04/23/18 15:00 74 15 131/56 (81) 99 04/23/18 14:00 68 20 125/62 (83) 99 04/23/18 13:00 62 14 114/61 (78) 99 04/23/18 12:00 68 04/23/18 12:00 98.4 69 13 123/60 (81) 100 04/23/18 12:00 Room Air 04/23/18 11:59 127/60 04/23/18 11:00 67 20 106/51 (69) 100 Intake and Output 04/23/18 04/24/18 19:00 07:00 Intake Total 1406.250 ml 975.72 ml Output Total 1065 ml 1250 ml Balance 341.250 ml -274.28 ml IV Total 1406.250 ml 975.72 ml Output Urine Total 1065 ml 1250 ml # Voids 3 4 # Bowel Movements 4 2 Microbiology Date/Time Source Procedure Growth Status 04/21/18 12:00 Blood Blood Culture - Preliminary NO GROWTH AFTER 24 HOURS Resulted 04/21/18 12:00 Blood Blood Culture - Preliminary NO GROWTH AFTER 24 HOURS Resulted 04/23/18 11:10 Stool Clostridium difficile Toxin Assay - Final Complete 04/22/18 03:25 Urine,Clean Catch Urine Culture - Final Klebsiella Pneumoniae Mixed Gram Positive Organism Complete Laboratory Tests 04/23/18 11:45: Urine Random Sodium 68 04/23/18 18:05: Prothrombin Time 13.0H, Prothromb Time International Ratio 1.2H, Fibrinogen 398 , Hepatitis A IgM Antibody [Pending], Hepatitis B Surface Antigen [Pending], Hepatitis B Core IgM Antibody [Pending], Hepatitis C Antibody [Pending], HIV (1& 2) Antibody Rapid Negative 04/24/18 04:00: White Blood Count 8.5, Red Blood Count 2.51L, Hemoglobin 7.9L, Hematocrit 24.2L , Mean Corpuscular Volume 96, Mean Corpuscular Hemoglobin 31.6H, Mean Corpuscular Hemoglobin Concent 32.8, Red Cell Distribution Width 12.9, Platelet Count 162, Mean Platelet Volume 8.8, Neutrophils (%) (Auto) , Lymphocytes (%) ( Auto) , Monocytes (%) (Auto) , Eosinophils (%) (Auto) , Basophils (%) (Auto) , Neutrophils % (Manual) [Pending], Lymphocytes % (Manual) [Pending], Platelet Estimate [Pending], Platelet Morphology [Pending], Sodium Level 148H, Potassium Level 3.8, Chloride Level 120H, Carbon Dioxide Level 17L, Anion Gap 12, Blood Urea Nitrogen 24H, Creatinine 1.3, Estimat Glomerular Filtration Rate 55.9, Glucose Level 85, Uric Acid 4.3, Calcium Level 8.4L, Phosphorus Level 2.7, Magnesium Level 1.9, Total Bilirubin 0.6, Gamma Glutamyl Transpeptidase 128H, Aspartate Amino Transf (AST/SGOT) 35, Alanine Aminotransferase (ALT/SGPT) 43, Alkaline Phosphatase 163H, Total Creatine Kinase 322H, Pro-B-Type Natriuretic Peptide 8229H, Total Protein 5.8L, Albumin 2.5L, Globulin 3.3, Albumin/Globulin Ratio 0.8L, Lipase 298 Current Medications Medications (Trade) Dose Ordered Sig/Jamal Route PRN Reason Start Time Stop Time Status Last Admin Dose Admin Acetaminophen (Tylenol) 500 mg Q4H PRN ORAL Mild Pain/Temp > 100.5 04/23/18 17:00 05/23/18 16:59 Chlorhexidine Gluconate (Jen-Hex 2%) 1 applic DAILY@2000 TOPIC 04/23/18 20:00 05/22/18 19:59 Dextrose (Dextrose 50%) 25 ml Q30M PRN IV Hypoglycemia 04/23/18 17:00 05/21/18 10:59 Dextrose (Dextrose 50%) 50 ml Q30M PRN IV Hypoglycemia 04/23/18 17:00 05/21/18 10:59 Folic Acid (Folate) 3 mg DAILY ORAL 04/24/18 09:00 05/22/18 17:14 04/24/18 08:35 Heparin Sodium (Porcine) (Heparin 5000 units/ml) 5,000 units EVERY 12 HOURS SUBQ 04/23/18 21:00 05/23/18 20:59 04/24/18 08:36 Insulin Aspart (NovoLOG) BEFORE MEALS AND HS SUBQ 04/23/18 21:00 05/21/18 11:29 Pantoprazole (Protonix) 40 mg DAILY IVP 04/24/18 09:00 05/22/18 08:59 04/24/18 08:35 Piperacillin Sod/ Tazobactam Sod 3.375 gm/Dextrose 110 ml @ 27.5 mls/hr EVERY 8 HOURS IVPB 04/23/18 22:00 04/28/18 21:59 04/24/18 05:53 Sodium Chloride 1,000 ml @ 75 mls/hr [id number] IV 04/23/18 17:00 05/23/18 16:52 04/24/18 05:52 Valeriy Kumar MD Apr 24, 2018 10:27
--- NOTE | 2018-04-24 10:54 | Infectious Diseases Prog Note ---
Assessment/Plan Assessment/Plan antibiotics : zosyn A 1. klebsiella UTI 2. cholangitis 3. gall stones 4. choledocholithiasis 5. diabetes mellitus 6. hypertension 7. renal failure improving 8. leucocytosis resolved P 1. continue zosyn 2. will follow up cultures Subjective ROS Limited/Unobtainable: Yes Allergies: Coded Allergies: No Known Allergies (Unverified , 04/21/18) Objective Vital Signs Last 24 Hour Vital Signs Date Time Temp Pulse Resp B/P (MAP) Pulse Ox O2 Delivery O2 Flow Rate FiO2 04/24/18 09:48 68 04/24/18 08:00 97.5 71 16 141/70 (93) 99 04/24/18 08:00 Room Air 04/24/18 04:00 97.9 75 16 140/65 (90) 97 04/24/18 04:00 Room Air 04/24/18 03:47 73 04/24/18 00:00 98.9 76 16 136/74 (94) 96 04/24/18 00:00 Room Air 04/23/18 23:36 74 04/23/18 20:00 Room Air 04/23/18 20:00 98.0 73 16 132/78 (96) 97 04/23/18 19:48 69 04/23/18 16:00 72 04/23/18 16:00 97.6 70 14 149/66 (93) 100 04/23/18 16:00 Room Air 04/23/18 15:00 74 15 131/56 (81) 99 04/23/18 14:00 68 20 125/62 (83) 99 04/23/18 13:00 62 14 114/61 (78) 99 04/23/18 12:00 68 04/23/18 12:00 98.4 69 13 123/60 (81) 100 04/23/18 12:00 Room Air 04/23/18 11:59 127/60 04/23/18 11:00 67 20 106/51 (69) 100 Height (Feet): 5 Height (Inches): 6.00 Weight (Pounds): 140 Respiratory/Chest: lungs clear Cardiovascular: normal rate, regular rhythm, no gallop/murmur Abdomen: soft, non tender Extremities: no edema Microbiology Date/Time Source Procedure Growth Status 04/21/18 12:00 Blood Blood Culture - Preliminary NO GROWTH AFTER 24 HOURS Resulted 04/21/18 12:00 Blood Blood Culture - Preliminary NO GROWTH AFTER 24 HOURS Resulted 04/23/18 11:10 Stool Clostridium difficile Toxin Assay - Final Complete 04/22/18 03:25 Urine,Clean Catch Urine Culture - Final Klebsiella Pneumoniae Mixed Gram Positive Organism Complete Laboratory Tests Test 04/23/18 11:45 04/23/18 18:05 04/24/18 04:00 Urine Random Sodium 68 mmol/L (20-110) Prothrombin Time 13.0 SEC (9.30-11.50) H Prothromb Time International Ratio 1.2 (0.9-1.1) H Fibrinogen 398 mg/dL (200-400) Hepatitis A IgM Antibody Negative (Negative) Hepatitis B Surface Antigen Negative (Negative) Hepatitis B Core IgM Antibody Negative (Negative) Hepatitis C Antibody <0.1 s/co ratio HIV (1&2) Antibody Rapid Negative (NEGATIVE) White Blood Count 8.5 K/UL (4.8-10.8) Red Blood Count 2.51 M/UL (4.70-6.10) L Hemoglobin 7.9 G/DL (14.2-18.0) L Hematocrit 24.2 % (42.0-52.0) L Mean Corpuscular Volume 96 FL (80-99) Mean Corpuscular Hemoglobin 31.6 PG (27.0-31.0) H Mean Corpuscular Hemoglobin Concent 32.8 G/DL (32.0-36.0) Red Cell Distribution Width 12.9 % (11.6-14.8) Platelet Count 162 K/UL (150-450) Mean Platelet Volume 8.8 FL (6.5-10.1) Neutrophils (%) (Auto) % (45.0-75.0) Lymphocytes (%) (Auto) % (20.0-45.0) Monocytes (%) (Auto) % (1.0-10.0) Eosinophils (%) (Auto) % (0.0-3.0) Basophils (%) (Auto) % (0.0-2.0) Neutrophils % (Manual) Pending Lymphocytes % (Manual) Pending Platelet Estimate Pending Platelet Morphology Pending Sodium Level 148 MMOL/L (136-145) H Potassium Level 3.8 MMOL/L (3.5-5.1) Chloride Level 120 MMOL/L (98-107) H Carbon Dioxide Level 17 MMOL/L (21-32) L Anion Gap 12 mmol/L (5-15) Blood Urea Nitrogen 24 mg/dL (7-18) H Creatinine 1.3 MG/DL (0.55-1.30) Estimat Glomerular Filtration Rate 55.9 mL/min (>60) Glucose Level 85 MG/DL (74-106) Uric Acid 4.3 MG/DL (2.6-7.2) Calcium Level 8.4 MG/DL (8.5-10.1) L Phosphorus Level 2.7 MG/DL (2.5-4.9) Magnesium Level 1.9 MG/DL (1.8-2.4) Total Bilirubin 0.6 MG/DL (0.2-1.0) Gamma Glutamyl Transpeptidase 128 U/L (5-85) H Aspartate Amino Transf (AST/SGOT) 35 U/L (15-37) Alanine Aminotransferase (ALT/SGPT) 43 U/L (12-78) Alkaline Phosphatase 163 U/L (46-116) H Total Creatine Kinase 322 U/L (26-308) H Pro-B-Type Natriuretic Peptide 8229 pg/mL (0-125) H Total Protein 5.8 G/DL (6.4-8.2) L Albumin 2.5 G/DL (3.4-5.0) L Globulin 3.3 g/dL Albumin/Globulin Ratio 0.8 (1.0-2.7) L Lipase 298 U/L (73-393) Current Medications Medications (Trade) Dose Ordered Sig/Jamal Route PRN Reason Start Time Stop Time Status Last Admin Dose Admin Acetaminophen (Tylenol) 500 mg Q4H PRN ORAL Mild Pain/Temp > 100.5 04/23/18 17:00 05/23/18 16:59 Chlorhexidine Gluconate (Jen-Hex 2%) 1 applic DAILY@1999 TOPIC 04/23/18 20:00 05/22/18 19:59 Dextrose (Dextrose 50%) 25 ml Q30M PRN IV Hypoglycemia 04/23/18 17:00 05/21/18 10:59 Dextrose (Dextrose 50%) 50 ml Q30M PRN IV Hypoglycemia 04/23/18 17:00 3/8/19 10:59 Folic Acid (Folate) 3 mg DAILY ORAL 04/24/18 09:00 05/22/18 17:14 04/24/18 08:35 Heparin Sodium (Porcine) (Heparin 5000 units/ml) 5,000 units EVERY 12 HOURS SUBQ 04/23/18 21:00 05/23/18 20:59 04/24/18 08:36 Insulin Aspart (NovoLOG) BEFORE MEALS AND HS SUBQ 04/23/18 21:00 05/21/18 11:29 Pantoprazole (Protonix) 40 mg DAILY IVP 04/24/18 09:00 05/22/18 08:59 04/24/18 08:35 Piperacillin Sod/ Tazobactam Sod 3.375 gm/Dextrose 110 ml @ 27.5 mls/hr EVERY 8 HOURS IVPB 04/23/18 22:00 04/28/18 21:59 04/24/18 05:53 Sodium Chloride 1,000 ml @ 75 mls/hr [id number] IV 04/23/18 17:00 05/23/18 16:52 04/24/18 05:52 Paolo Napier MD Apr 24, 2018 10:54
[2018-04-24] MEDS ORDERED: D5 1/2NS 1,000 ML IV SCH (11:15)
--- NOTE | 2018-04-24 11:47 | Nephrology Progress Note ---
Assessment/Plan Problem List: (1) JONA (acute kidney injury) Assessment: Cr lowering (2) Gallstone pancreatitis (3) Anemia (4) Dehydration (5) Hypovolemic shock (6) Diabetes Assessment: with elevated HgbA1c Plan start clear liquids consider transfusion Hydrate- Monitor renal parameters Monitor CPK Antibiotics no herndon avoid nephrotoxics per GI med surg Subjective ROS Limited/Unobtainable: No Constitutional: Reports: malaise Objective Objective Last 24 Hour Vital Signs Date Time Temp Pulse Resp B/P (MAP) Pulse Ox O2 Delivery O2 Flow Rate FiO2 04/24/18 09:48 68 04/24/18 08:00 97.5 71 16 141/70 (93) 99 04/24/18 08:00 Room Air 04/24/18 04:00 97.9 75 16 140/65 (90) 97 04/24/18 04:00 Room Air 04/24/18 03:47 73 04/24/18 00:00 98.9 76 16 136/74 (94) 96 04/24/18 00:00 Room Air 04/23/18 23:36 74 04/23/18 20:00 Room Air 04/23/18 20:00 98.0 73 16 132/78 (96) 97 04/23/18 19:48 69 04/23/18 16:00 72 04/23/18 16:00 97.6 70 14 149/66 (93) 100 04/23/18 16:00 Room Air 04/23/18 15:00 74 15 131/56 (81) 99 04/23/18 14:00 68 20 125/62 (83) 99 04/23/18 13:00 62 14 114/61 (78) 99 04/23/18 12:00 68 04/23/18 12:00 98.4 69 13 123/60 (81) 100 04/23/18 12:00 Room Air 04/23/18 11:59 127/60 Intake and Output 04/23/18 04/24/18 19:00 07:00 Intake Total 1406.250 ml 975.72 ml Output Total 1065 ml 1250 ml Balance 341.250 ml -274.28 ml IV Total 1406.250 ml 975.72 ml Output Urine Total 1065 ml 1250 ml # Voids 3 4 # Bowel Movements 4 2 Laboratory Tests 04/23/18 18:05: Prothrombin Time 13.0H, Prothromb Time International Ratio 1.2H, Fibrinogen 398 , Hepatitis A IgM Antibody Negative, Hepatitis B Surface Antigen Negative, Hepatitis B Core IgM Antibody Negative, Hepatitis C Antibody <0.1, HIV (1&2) Antibody Rapid Negative 04/24/18 04:00: White Blood Count 8.5, Red Blood Count 2.51L, Hemoglobin 7.9L, Hematocrit 24.2L , Mean Corpuscular Volume 96, Mean Corpuscular Hemoglobin 31.6H, Mean Corpuscular Hemoglobin Concent 32.8, Red Cell Distribution Width 12.9, Platelet Count 162, Mean Platelet Volume 8.8, Neutrophils (%) (Auto) , Lymphocytes (%) ( Auto) , Monocytes (%) (Auto) , Eosinophils (%) (Auto) , Basophils (%) (Auto) , Neutrophils % (Manual) [Pending], Lymphocytes % (Manual) [Pending], Platelet Estimate [Pending], Platelet Morphology [Pending], Sodium Level 148H, Potassium Level 3.8, Chloride Level 120H, Carbon Dioxide Level 17L, Anion Gap 12, Blood Urea Nitrogen 24H, Creatinine 1.3, Estimat Glomerular Filtration Rate 55.9, Glucose Level 85, Uric Acid 4.3, Calcium Level 8.4L, Phosphorus Level 2.7, Magnesium Level 1.9, Total Bilirubin 0.6, Gamma Glutamyl Transpeptidase 128H, Aspartate Amino Transf (AST/SGOT) 35, Alanine Aminotransferase (ALT/SGPT) 43, Alkaline Phosphatase 163H, Total Creatine Kinase 322H, Pro-B-Type Natriuretic Peptide 8229H, Total Protein 5.8L, Albumin 2.5L, Globulin 3.3, Albumin/Globulin Ratio 0.8L, Lipase 298 Height (Feet): 5 Height (Inches): 6.00 Weight (Pounds): 140 General Appearance: no apparent distress Cardiovascular: normal rate Abdomen: soft Orlin Berrios MD Apr 24, 2018 11:47
[2018-04-24 12:00] VITALS: BP 155/82
--- NOTE | 2018-04-24 12:41 | Surgery Progress Note ---
Surgery Progress Note Subjective Additional Comments no acute events. improving. labs improved. Objective Last 24 Hour Vital Signs Date Time Temp Pulse Resp B/P (MAP) Pulse Ox O2 Delivery O2 Flow Rate FiO2 04/24/18 09:48 68 04/24/18 08:00 97.5 71 16 141/70 (93) 99 04/24/18 08:00 Room Air 04/24/18 04:00 97.9 75 16 140/65 (90) 97 04/24/18 04:00 Room Air 04/24/18 03:47 73 04/24/18 00:00 98.9 76 16 136/74 (94) 96 04/24/18 00:00 Room Air 04/23/18 23:36 74 04/23/18 20:00 Room Air 04/23/18 20:00 98.0 73 16 132/78 (96) 97 04/23/18 19:48 69 04/23/18 16:00 72 04/23/18 16:00 97.6 70 14 149/66 (93) 100 04/23/18 16:00 Room Air 04/23/18 15:00 74 15 131/56 (81) 99 04/23/18 14:00 68 20 125/62 (83) 99 04/23/18 13:00 62 14 114/61 (78) 99 I&O Intake and Output 04/23/18 04/24/18 19:00 07:00 Intake Total 1406.250 ml 975.72 ml Output Total 1065 ml 1250 ml Balance 341.250 ml -274.28 ml IV Total 1406.250 ml 975.72 ml Output Urine Total 1065 ml 1250 ml # Voids 3 4 # Bowel Movements 4 2 Cardiovascular: RSR Respiratory: clear Abdomen: soft, present bowel sounds, non-distended Extremities: other Laboratory Tests Test 04/23/18 18:05 04/24/18 04:00 Prothrombin Time 13.0 SEC (9.30-11.50) H Prothromb Time International Ratio 1.2 (0.9-1.1) H Fibrinogen 398 mg/dL (200-400) Hepatitis A IgM Antibody Negative (Negative) Hepatitis B Surface Antigen Negative (Negative) Hepatitis B Core IgM Antibody Negative (Negative) Hepatitis C Antibody <0.1 s/co ratio HIV (1&2) Antibody Rapid Negative (NEGATIVE) White Blood Count 8.5 K/UL (4.8-10.8) Red Blood Count 2.51 M/UL (4.70-6.10) L Hemoglobin 7.9 G/DL (14.2-18.0) L Hematocrit 24.2 % (42.0-52.0) L Mean Corpuscular Volume 96 FL (80-99) Mean Corpuscular Hemoglobin 31.6 PG (27.0-31.0) H Mean Corpuscular Hemoglobin Concent 32.8 G/DL (32.0-36.0) Red Cell Distribution Width 12.9 % (11.6-14.8) Platelet Count 162 K/UL (150-450) Mean Platelet Volume 8.8 FL (6.5-10.1) Neutrophils (%) (Auto) % (45.0-75.0) Lymphocytes (%) (Auto) % (20.0-45.0) Monocytes (%) (Auto) % (1.0-10.0) Eosinophils (%) (Auto) % (0.0-3.0) Basophils (%) (Auto) % (0.0-2.0) Neutrophils % (Manual) Pending Lymphocytes % (Manual) Pending Platelet Estimate Pending Platelet Morphology Pending Sodium Level 148 MMOL/L (136-145) H Potassium Level 3.8 MMOL/L (3.5-5.1) Chloride Level 120 MMOL/L (98-107) H Carbon Dioxide Level 17 MMOL/L (21-32) L Anion Gap 12 mmol/L (5-15) Blood Urea Nitrogen 24 mg/dL (7-18) H Creatinine 1.3 MG/DL (0.55-1.30) Estimat Glomerular Filtration Rate 55.9 mL/min (>60) Glucose Level 85 MG/DL (74-106) Uric Acid 4.3 MG/DL (2.6-7.2) Calcium Level 8.4 MG/DL (8.5-10.1) L Phosphorus Level 2.7 MG/DL (2.5-4.9) Magnesium Level 1.9 MG/DL (1.8-2.4) Total Bilirubin 0.6 MG/DL (0.2-1.0) Gamma Glutamyl Transpeptidase 128 U/L (5-85) H Aspartate Amino Transf (AST/SGOT) 35 U/L (15-37) Alanine Aminotransferase (ALT/SGPT) 43 U/L (12-78) Alkaline Phosphatase 163 U/L (46-116) H Total Creatine Kinase 322 U/L (26-308) H C-Reactive Protein, Quantitative Pending Pro-B-Type Natriuretic Peptide 8229 pg/mL (0-125) H Total Protein 5.8 G/DL (6.4-8.2) L Albumin 2.5 G/DL (3.4-5.0) L Globulin 3.3 g/dL Albumin/Globulin Ratio 0.8 (1.0-2.7) L Lipase 298 U/L (73-393) Plan Problems: (1) Acute cholecystitis Assessment & Plan: US with Distended urinary bladder. Torres catheter not visualized but present. Clinical evaluation is needed. Recommend removal of the Torres catheter and replacement. Mild pelvocaliectasis noted which is likely on the basis of the distended bladder. Suspected choledocholithiasis with the one or more stones in the distal common bile duct. Moderate biliary ductal dilatation demonstrated. Cholelithiasis with distention of the gallbladder and wall thickening. Leukocytosis Hypotensive shock Abnormal LFT's. Possible choledocholithiasis MRI reviewed. likely gallstone pancreatitis with choledocholithiasis. labs improving jennifer/lip improved -clears for now. npo p mn thursday -IV fluids -IV Abx -ERCP Thursday as per GI -no acute surgical intervention planned -thank you for this consult. will follow with recs. (2) Hypovolemic shock Martin Sterling Apr 24, 2018 12:41
[2018-04-24] MEDS ORDERED: Iron Sucrose 200 MG in NS 110 ML IV ONE (13:00)
[2018-04-24] MEDS ORDERED: Acetaminophen 500mg (ES) tab ORAL PRN (14:00)
[2018-04-24] MEDS: D5 1/2NS 1,000 ML IV SCH (14:27)
[2018-04-24 16:00] VITALS: BP 152/70
--- NOTE | 2018-04-24 16:28 | GI Progress Note ---
Assessment/Plan Problems: (1) Diabetes ICD Codes: E11.9 - Type 2 diabetes mellitus without complications SNOMED: 34464631 (2) Anemia ICD Codes: D64.9 - Anemia, unspecified SNOMED: 958896710 (3) Choledocholithiasis with acute cholecystitis ICD Codes: K80.42 - Calculus of bile duct with acute cholecystitis without obstruction SNOMED: 43005519 (4) Dehydration ICD Codes: E86.0 - Dehydration SNOMED: 85739671 (5) Gall bladder stones ICD Codes: K80.20 - Calculus of gallbladder without cholecystitis without obstruction SNOMED: 482865380 Status: unchanged Status Narrative Discussed with Dr. Lambert Assessment/Plan ERCP to be scheduled next Thursday. Maintain n.p.o. plus aggressive IV hydration Pain management Follow labs, trend lipase anemia work up OB stool r/o GI bleed monitor H&H, prn transfusions bowel regime ppi The patient was seen and examined at bedside and all new and available data was reviewed in the patients chart. I agree with the above findings, impression and plan. (Patient seen earlier today. Signature stamp does not reflect patient encounter time.). - León Lambert MD Subjective Gastrointestinal/Abdominal: Reports: no symptoms Subjective Tolerating clear liquid diet Objective Last 24 Hour Vital Signs Date Time Temp Pulse Resp B/P (MAP) Pulse Ox O2 Delivery O2 Flow Rate FiO2 04/24/18 12:00 97.7 67 20 155/82 (106) 98 04/24/18 12:00 62 04/24/18 12:00 Room Air 04/24/18 09:48 68 04/24/18 08:00 97.5 71 16 141/70 (93) 99 04/24/18 08:00 Room Air 04/24/18 04:00 97.9 75 16 140/65 (90) 97 04/24/18 04:00 Room Air 04/24/18 03:47 73 04/24/18 00:00 98.9 76 16 136/74 (94) 96 04/24/18 00:00 Room Air 04/23/18 23:36 74 04/23/18 20:00 Room Air 04/23/18 20:00 98.0 73 16 132/78 (96) 97 04/23/18 19:48 69 Intake and Output 04/23/18 04/24/18 19:00 07:00 Intake Total 1406.250 ml 975.72 ml Output Total 1065 ml 1250 ml Balance 341.250 ml -274.28 ml IV Total 1406.250 ml 975.72 ml Output Urine Total 1065 ml 1250 ml # Voids 3 4 # Bowel Movements 4 2 Laboratory Tests Test 04/23/18 18:05 04/24/18 04:00 Prothrombin Time 13.0 SEC (9.30-11.50) H Prothromb Time International Ratio 1.2 (0.9-1.1) H Fibrinogen 398 mg/dL (200-400) Hepatitis A IgM Antibody Negative (Negative) Hepatitis B Surface Antigen Negative (Negative) Hepatitis B Core IgM Antibody Negative (Negative) Hepatitis C Antibody <0.1 s/co ratio HIV (1&2) Antibody Rapid Negative (NEGATIVE) White Blood Count 8.5 K/UL (4.8-10.8) Red Blood Count 2.51 M/UL (4.70-6.10) L Hemoglobin 7.9 G/DL (14.2-18.0) L Hematocrit 24.2 % (42.0-52.0) L Mean Corpuscular Volume 96 FL (80-99) Mean Corpuscular Hemoglobin 31.6 PG (27.0-31.0) H Mean Corpuscular Hemoglobin Concent 32.8 G/DL (32.0-36.0) Red Cell Distribution Width 12.9 % (11.6-14.8) Platelet Count 162 K/UL (150-450) Mean Platelet Volume 8.8 FL (6.5-10.1) Neutrophils (%) (Auto) % (45.0-75.0) Lymphocytes (%) (Auto) % (20.0-45.0) Monocytes (%) (Auto) % (1.0-10.0) Eosinophils (%) (Auto) % (0.0-3.0) Basophils (%) (Auto) % (0.0-2.0) Differential Total Cells Counted 100 Neutrophils % (Manual) 74 % (45-75) Lymphocytes % (Manual) 16 % (20-45) L Monocytes % (Manual) 6 % (1-10) Eosinophils % (Manual) 4 % (0-3) H Basophils % (Manual) 0 % (0-2) Band Neutrophils 0 % (0-8) Platelet Estimate Adequate Platelet Morphology Normal Red Blood Cell Morphology Normal Sodium Level 148 MMOL/L (136-145) H Potassium Level 3.8 MMOL/L (3.5-5.1) Chloride Level 120 MMOL/L (98-107) H Carbon Dioxide Level 17 MMOL/L (21-32) L Anion Gap 12 mmol/L (5-15) Blood Urea Nitrogen 24 mg/dL (7-18) H Creatinine 1.3 MG/DL (0.55-1.30) Estimat Glomerular Filtration Rate 55.9 mL/min (>60) Glucose Level 85 MG/DL (74-106) Uric Acid 4.3 MG/DL (2.6-7.2) Calcium Level 8.4 MG/DL (8.5-10.1) L Phosphorus Level 2.7 MG/DL (2.5-4.9) Magnesium Level 1.9 MG/DL (1.8-2.4) Total Bilirubin 0.6 MG/DL (0.2-1.0) Gamma Glutamyl Transpeptidase 128 U/L (5-85) H Aspartate Amino Transf (AST/SGOT) 35 U/L (15-37) Alanine Aminotransferase (ALT/SGPT) 43 U/L (12-78) Alkaline Phosphatase 163 U/L (46-116) H Total Creatine Kinase 322 U/L (26-308) H C-Reactive Protein, Quantitative 9.6 mg/dL (0.00-0.90) H Pro-B-Type Natriuretic Peptide 8229 pg/mL (0-125) H Total Protein 5.8 G/DL (6.4-8.2) L Albumin 2.5 G/DL (3.4-5.0) L Globulin 3.3 g/dL Albumin/Globulin Ratio 0.8 (1.0-2.7) L Lipase 298 U/L (73-393) Height (Feet): 5 Height (Inches): 6.00 Weight (Pounds): 140 General Appearance: WD/WN, no apparent distress, alert Cardiovascular: normal rate Respiratory/Chest: normal breath sounds, no respiratory distress Abdominal Exam: normal bowel sounds, non tender, soft Extremities: normal range of motion, non-tender Lori Douglass BULWARK CARPENTER Apr 24, 2018 16:28
--- NOTE | 2018-04-24 18:09 | General Progress Note ---
Assessment/Plan Problem List: (1) ARF (acute renal failure) ICD Codes: N17.9 - Acute kidney failure, unspecified SNOMED: 67177478 Qualifiers: Qualified Codes: N17.9 - Acute kidney failure, unspecified (2) Hypovolemic shock ICD Codes: R57.1 - Hypovolemic shock SNOMED: 34307434 (3) JONA (acute kidney injury) ICD Codes: N17.9 - Acute kidney failure, unspecified SNOMED: 67562197 Status: progressing Assessment/Plan arf resolved responded to iv fluids afebrile reviwed chart and labs Subjective Allergies: Coded Allergies: No Known Allergies (Unverified , 04/21/18) Subjective general pain Objective Last 24 Hour Vital Signs Date Time Temp Pulse Resp B/P (MAP) Pulse Ox O2 Delivery O2 Flow Rate FiO2 04/24/18 16:00 98.2 74 18 152/70 (97) 100 04/24/18 12:00 97.7 67 20 155/82 (106) 98 04/24/18 12:00 62 04/24/18 12:00 Room Air 04/24/18 09:48 68 04/24/18 08:00 97.5 71 16 141/70 (93) 99 04/24/18 08:00 Room Air 04/24/18 04:00 97.9 75 16 140/65 (90) 97 04/24/18 04:00 Room Air 04/24/18 03:47 73 04/24/18 00:00 98.9 76 16 136/74 (94) 96 04/24/18 00:00 Room Air 04/23/18 23:36 74 04/23/18 20:00 Room Air 04/23/18 20:00 98.0 73 16 132/78 (96) 97 04/23/18 19:48 69 Intake and Output 04/23/18 04/24/18 19:00 07:00 Intake Total 1406.250 ml 975.72 ml Output Total 1065 ml 1250 ml Balance 341.250 ml -274.28 ml IV Total 1406.250 ml 975.72 ml Output Urine Total 1065 ml 1250 ml # Voids 3 4 # Bowel Movements 4 2 Laboratory Tests 04/24/18 04:00: White Blood Count 8.5, Red Blood Count 2.51L, Hemoglobin 7.9L, Hematocrit 24.2L , Mean Corpuscular Volume 96, Mean Corpuscular Hemoglobin 31.6H, Mean Corpuscular Hemoglobin Concent 32.8, Red Cell Distribution Width 12.9, Platelet Count 162, Mean Platelet Volume 8.8, Neutrophils (%) (Auto) , Lymphocytes (%) ( Auto) , Monocytes (%) (Auto) , Eosinophils (%) (Auto) , Basophils (%) (Auto) , Differential Total Cells Counted 100, Neutrophils % (Manual) 74, Lymphocytes % ( Manual) 16L, Monocytes % (Manual) 6, Eosinophils % (Manual) 4H, Basophils % ( Manual) 0, Band Neutrophils 0, Platelet Estimate Adequate, Platelet Morphology Normal, Red Blood Cell Morphology Normal, Sodium Level 148H, Potassium Level 3.8 , Chloride Level 120H, Carbon Dioxide Level 17L, Anion Gap 12, Blood Urea Nitrogen 24H, Creatinine 1.3, Estimat Glomerular Filtration Rate 55.9, Glucose Level 85, Uric Acid 4.3, Calcium Level 8.4L, Phosphorus Level 2.7, Magnesium Level 1.9, Total Bilirubin 0.6, Gamma Glutamyl Transpeptidase 128H, Aspartate Amino Transf (AST/SGOT) 35, Alanine Aminotransferase (ALT/SGPT) 43, Alkaline Phosphatase 163H, Total Creatine Kinase 322H, C-Reactive Protein, Quantitative 9.6H, Pro-B-Type Natriuretic Peptide 8229H, Total Protein 5.8L, Albumin 2.5L, Globulin 3.3, Albumin/Globulin Ratio 0.8L, Lipase 298 Height (Feet): 5 Height (Inches): 6.00 Weight (Pounds): 140 Cardiovascular: normal rate Respiratory/Chest: lungs clear Abdomen: soft Oksana Casey MD Apr 24, 2018 18:09
[2018-04-24] MEDS ORDERED: Lisinopril 2.5mg tab ORAL SCH (18:30)
[2018-04-24 20:00] VITALS: BP 128/66
[2018-04-24] MEDS: Dyna-Hex 2% Top Sol 2oz TOPIC SCH (20:00)
[2018-04-24] MEDS ORDERED: D5 1/2NS 1000ml IV ONE (20:03)
[2018-04-24] MEDS ORDERED: NS 275ml ONE (20:03)
--- NOTE | 2018-04-24 23:25 | Cardiology Progress Note ---
Assessment/Plan Assessment/Plan 1. Septic shock, continue hydration. Echo reveals normal LV systolic and diastolic function. 2. JONA, creatinine at 1.3. 3. History of diabetes mellitus. 4. History of hypertension. 5. Gallstone pancreatitis. Subjective Subjective Sinus rhythm at rate of 72. On room air. Objective Last 24 Hour Vital Signs Date Time Temp Pulse Resp B/P (MAP) Pulse Ox O2 Delivery O2 Flow Rate FiO2 04/24/18 20:00 98.2 64 18 128/66 (86) 97 04/24/18 19:02 152/70 04/24/18 16:00 98.2 74 18 152/70 (97) 100 04/24/18 12:00 97.7 67 20 155/82 (106) 98 04/24/18 12:00 62 04/24/18 12:00 Room Air 04/24/18 09:48 68 04/24/18 08:00 97.5 71 16 141/70 (93) 99 04/24/18 08:00 Room Air 04/24/18 04:00 97.9 75 16 140/65 (90) 97 04/24/18 04:00 Room Air 04/24/18 03:47 73 04/24/18 00:00 98.9 76 16 136/74 (94) 96 04/24/18 00:00 Room Air 04/23/18 23:36 74 Intake and Output 04/23/18 04/24/18 19:00 07:00 Intake Total 1406.250 ml 975.72 ml Output Total 1065 ml 1250 ml Balance 341.250 ml -274.28 ml IV Total 1406.250 ml 975.72 ml Output Urine Total 1065 ml 1250 ml # Voids 3 4 # Bowel Movements 4 2 2D Echo: LVEF 55%, RVSP 42 mmHg Laboratory Tests Test 04/24/18 04:00 White Blood Count 8.5 K/UL (4.8-10.8) Red Blood Count 2.51 M/UL (4.70-6.10) L Hemoglobin 7.9 G/DL (14.2-18.0) L Hematocrit 24.2 % (42.0-52.0) L Mean Corpuscular Volume 96 FL (80-99) Mean Corpuscular Hemoglobin 31.6 PG (27.0-31.0) H Mean Corpuscular Hemoglobin Concent 32.8 G/DL (32.0-36.0) Red Cell Distribution Width 12.9 % (11.6-14.8) Platelet Count 162 K/UL (150-450) Mean Platelet Volume 8.8 FL (6.5-10.1) Neutrophils (%) (Auto) % (45.0-75.0) Lymphocytes (%) (Auto) % (20.0-45.0) Monocytes (%) (Auto) % (1.0-10.0) Eosinophils (%) (Auto) % (0.0-3.0) Basophils (%) (Auto) % (0.0-2.0) Differential Total Cells Counted 100 Neutrophils % (Manual) 74 % (45-75) Lymphocytes % (Manual) 16 % (20-45) L Monocytes % (Manual) 6 % (1-10) Eosinophils % (Manual) 4 % (0-3) H Basophils % (Manual) 0 % (0-2) Band Neutrophils 0 % (0-8) Platelet Estimate Adequate Platelet Morphology Normal Red Blood Cell Morphology Normal Sodium Level 148 MMOL/L (136-145) H Potassium Level 3.8 MMOL/L (3.5-5.1) Chloride Level 120 MMOL/L (98-107) H Carbon Dioxide Level 17 MMOL/L (21-32) L Anion Gap 12 mmol/L (5-15) Blood Urea Nitrogen 24 mg/dL (7-18) H Creatinine 1.3 MG/DL (0.55-1.30) Estimat Glomerular Filtration Rate 55.9 mL/min (>60) Glucose Level 85 MG/DL (74-106) Uric Acid 4.3 MG/DL (2.6-7.2) Calcium Level 8.4 MG/DL (8.5-10.1) L Phosphorus Level 2.7 MG/DL (2.5-4.9) Magnesium Level 1.9 MG/DL (1.8-2.4) Total Bilirubin 0.6 MG/DL (0.2-1.0) Gamma Glutamyl Transpeptidase 128 U/L (5-85) H Aspartate Amino Transf (AST/SGOT) 35 U/L (15-37) Alanine Aminotransferase (ALT/SGPT) 43 U/L (12-78) Alkaline Phosphatase 163 U/L (46-116) H Total Creatine Kinase 322 U/L (26-308) H C-Reactive Protein, Quantitative 9.6 mg/dL (0.00-0.90) H Pro-B-Type Natriuretic Peptide 8229 pg/mL (0-125) H Total Protein 5.8 G/DL (6.4-8.2) L Albumin 2.5 G/DL (3.4-5.0) L Globulin 3.3 g/dL Albumin/Globulin Ratio 0.8 (1.0-2.7) L Lipase 298 U/L (73-393) Microbiology Date/Time Source Procedure Growth Status 04/23/18 11:10 Stool Clostridium difficile Toxin Assay - Final Complete 04/22/18 03:25 Urine,Clean Catch Urine Culture - Final Klebsiella Pneumoniae Mixed Gram Positive Organism Complete Objective HEENT: Atraumatic, normocephalic. ENT, pupils are equal, round, and reactive to light and accommodation. Extraocular muscles intact. NECK: JVP less than 5 cm. No carotid bruit. Carotid upstrokes 2+ bilaterally. CARDIOVASCULAR SYSTEM: Normal S1, S2. Regular rate and rhythm. No murmurs, gallops, or rubs. PMI is at fourth intercostal space at midclavicular line. LUNGS: Clear to auscultation bilaterally. ABDOMEN: Soft, nontender, and nondistended. No hepatosplenomegaly. Positive bowel sounds. EXTREMITIES: No evidence of edema, clubbing, or cyanosis. Alvaro Hargrove MD Apr 24, 2018 23:25
[2018-04-25] VITALS (7 sets, daily range): BP systolic 128–157; BP diastolic 61–79
[2018-04-25] MEDS: Piperacillin/Tazobactam 3.375 GM in D5W 110 ML IVPB SCH ×3 (06:14→20:43)
[2018-04-25] MEDS: D5 1/2NS 1,000 ML IV SCH (06:14)
[2018-04-25] MEDS: NovoLOG Insulin Flexpen SUBQ SCH ×4 (06:30→20:44)
[2018-04-25 07:08] LABS: BASOPHILS % (AUTO) 1.3 % (0.0-2.0); CREATINE KINASE 162 U/L (26-308); EOSINOPHILS % (AUTO) 11.1 % (0.0-3.0); HEMATOCRIT 24.4 % (42.0-52.0); HEMOGLOBIN 8.1 G/DL (14.2-18.0); MEAN CORPUSCULAR VOLUME 96 FL (80-99); MONOCYTES % (AUTO) 7.5 % (1.0-10.0); NEUTROPHILS % (AUTO) 64.1 % (45.0-75.0); PLATELET COUNT 174 K/UL (150-450); RED BLOOD COUNT 2.54 M/UL (4.70-6.10); RED CELL DISTRIBUTION WIDTH 12.8 % (11.6-14.8); WHITE BLOOD COUNT 7.9 K/UL (4.8-10.8)
[2018-04-25 07:10] LABS: ALANINE AMINOTRANSFERASE 36 U/L (12-78); ALBUMIN 2.5 G/DL (3.4-5.0); ALBUMIN/GLOBULIN RATIO 0.7 (1.0-2.7); ALKALINE PHOSPHATASE 135 U/L (46-116); ANION GAP 13 mmol/L (5-15); ASPARTATE AMINO TRANSFERASE 21 U/L (15-37); BILIRUBIN,TOTAL 0.6 MG/DL (0.2-1.0); BLOOD UREA NITROGEN 16 mg/dL (7-18); CALCIUM 8.2 MG/DL (8.5-10.1); CARBON DIOXIDE 16 MMOL/L (21-32); CHLORIDE 116 MMOL/L (98-107); CREATININE 1.3 MG/DL (0.55-1.30); PHOSPHORUS 2.2 MG/DL (2.5-4.9); POTASSIUM 3.8 MMOL/L (3.5-5.1); SODIUM 145 MMOL/L (136-145)
[2018-04-25] MEDS: Pantoprazole Inj IVP SCH (08:54)
[2018-04-25] MEDS: Lisinopril 2.5mg tab ORAL SCH (08:54)
[2018-04-25] MEDS: Heparin 5000 units/ml inj SUBQ SCH ×2 (08:55→20:48)
--- NOTE | 2018-04-25 11:37 | Infectious Diseases Prog Note ---
Assessment/Plan Assessment/Plan A; 1. Sepsis 2.Cholelithiasis/Choledocholithiasis 3. Leukocytosis. resolved 4. acute renal failure, improving 5. Elevated transaminase. 6. Diabetes mellitus. 7. Hypertension. 8. Lactic acidosis. 9. Pancreatitis 10. Diarrhea, negative C. difficile test P: Continue Zoshanin Will have ERCP on Thursday Subjective ROS Limited/Unobtainable: No Constitutional: Reports: no symptoms Respiratory: Reports: no symptoms Cardiovascular: Reports: no symptoms Gastrointestinal/Abdominal: Reports: no symptoms Genitourinary: Reports: no symptoms Allergies: Coded Allergies: No Known Allergies (Unverified , 04/21/18) Objective Vital Signs Last 24 Hour Vital Signs Date Time Temp Pulse Resp B/P (MAP) Pulse Ox O2 Delivery O2 Flow Rate FiO2 04/25/18 09:00 Room Air 04/25/18 08:54 128/61 04/25/18 08:03 98.8 61 19 128/61 (83) 99 04/25/18 04:00 99.0 65 18 131/79 (96) 97 04/25/18 00:00 98.9 59 18 143/68 (93) 97 04/24/18 20:00 98.2 64 18 128/66 (86) 97 04/24/18 19:02 152/70 04/24/18 16:00 98.2 74 18 152/70 (97) 100 04/24/18 12:00 97.7 67 20 155/82 (106) 98 04/24/18 12:00 62 04/24/18 12:00 Room Air Height (Feet): 5 Height (Inches): 6.00 Weight (Pounds): 140 General Appearance: no acute distress HEENT: mucous membranes moist Respiratory/Chest: lungs clear Cardiovascular: normal rate Abdomen: soft, non tender Extremities: no edema Neurologic/Psychiatric: alert, responsive Microbiology Date/Time Source Procedure Growth Status 04/23/18 11:10 Stool Clostridium difficile Toxin Assay - Final Complete Laboratory Tests Test 04/25/18 05:10 White Blood Count 7.9 K/UL (4.8-10.8) Red Blood Count 2.54 M/UL (4.70-6.10) L Hemoglobin 8.1 G/DL (14.2-18.0) L Hematocrit 24.4 % (42.0-52.0) L Mean Corpuscular Volume 96 FL (80-99) Mean Corpuscular Hemoglobin 32.0 PG (27.0-31.0) H Mean Corpuscular Hemoglobin Concent 33.3 G/DL (32.0-36.0) Red Cell Distribution Width 12.8 % (11.6-14.8) Platelet Count 174 K/UL (150-450) Mean Platelet Volume 7.9 FL (6.5-10.1) Neutrophils (%) (Auto) 64.1 % (45.0-75.0) Lymphocytes (%) (Auto) 16.0 % (20.0-45.0) L Monocytes (%) (Auto) 7.5 % (1.0-10.0) Eosinophils (%) (Auto) 11.1 % (0.0-3.0) H Basophils (%) (Auto) 1.3 % (0.0-2.0) Sodium Level 145 MMOL/L (136-145) Potassium Level 3.8 MMOL/L (3.5-5.1) Chloride Level 116 MMOL/L (98-107) H Carbon Dioxide Level 16 MMOL/L (21-32) L Anion Gap 13 mmol/L (5-15) Blood Urea Nitrogen 16 mg/dL (7-18) Creatinine 1.3 MG/DL (0.55-1.30) Estimat Glomerular Filtration Rate 55.9 mL/min (>60) Glucose Level 140 MG/DL (74-106) H Uric Acid 3.5 MG/DL (2.6-7.2) Calcium Level 8.2 MG/DL (8.5-10.1) L Phosphorus Level 2.2 MG/DL (2.5-4.9) L Magnesium Level 1.7 MG/DL (1.8-2.4) L Total Bilirubin 0.6 MG/DL (0.2-1.0) Gamma Glutamyl Transpeptidase 122 U/L (5-85) H Aspartate Amino Transf (AST/SGOT) 21 U/L (15-37) Alanine Aminotransferase (ALT/SGPT) 36 U/L (12-78) Alkaline Phosphatase 135 U/L (46-116) H Total Creatine Kinase 162 U/L (26-308) Pro-B-Type Natriuretic Peptide 7169 pg/mL (0-125) H Total Protein 5.9 G/DL (6.4-8.2) L Albumin 2.5 G/DL (3.4-5.0) L Globulin 3.4 g/dL Albumin/Globulin Ratio 0.7 (1.0-2.7) L Lipase 234 U/L (73-393) Current Medications Medications (Trade) Dose Ordered Sig/Jamal Route PRN Reason Start Time Stop Time Status Last Admin Dose Admin Acetaminophen (Tylenol) 500 mg Q4H PRN ORAL Mild Pain/Temp > 100.5 04/24/18 14:00 05/23/18 13:59 Chlorhexidine Gluconate (Jen-Hex 2%) 1 applic DAILY@2000 TOPIC 04/24/18 20:00 05/22/18 19:59 Dextrose (Dextrose 50%) 25 ml Q30M PRN IV Hypoglycemia 04/24/18 14:00 05/21/18 10:59 Dextrose (Dextrose 50%) 50 ml Q30M PRN IV Hypoglycemia 04/24/18 14:00 05/21/18 10:59 Dextrose/Sodium Chloride 1,000 ml @ 50 mls/hr Q20H IV 04/24/18 14:00 05/24/18 11:14 04/25/18 06:14 Folic Acid (Folate) 3 mg DAILY ORAL 04/25/18 09:00 05/22/18 17:14 04/25/18 08:54 Heparin Sodium (Porcine) (Heparin 5000 units/ml) 5,000 units EVERY 12 HOURS SUBQ 04/24/18 21:00 05/23/18 20:59 04/25/18 08:55 Insulin Aspart (NovoLOG) BEFORE MEALS AND HS SUBQ 04/24/18 16:30 05/21/18 11:29 04/24/18 17:19 Lisinopril (Zestril) 5 mg DAILY ORAL 04/25/18 09:00 05/25/18 08:59 04/25/18 08:54 Pantoprazole (Protonix) 40 mg DAILY IVP 04/25/18 09:00 05/22/18 08:59 04/25/18 08:54 Piperacillin Sod/ Tazobactam Sod 3.375 gm/Dextrose 110 ml @ 27.5 mls/hr EVERY 8 HOURS IVPB 04/24/18 14:00 04/29/18 13:59 04/25/18 06:14 Potassium Phosphate 30 mm/ Sodium Chloride 285 ml @ 47.5 mls/hr ONCE ONCE IV 04/25/18 12:00 04/25/18 17:59 Thai Hale MD Apr 25, 2018 11:37
[2018-04-25] MEDS ORDERED: Potassium Phosphate 30 MM in NS 275 ML IV ONE (12:00)
--- NOTE | 2018-04-25 12:05 | Nephrology Progress Note ---
Assessment/Plan Problem List: (1) JONA (acute kidney injury) Assessment: Cr lowering (2) Gallstone pancreatitis (3) Anemia (4) Dehydration (5) Hypovolemic shock (6) Diabetes Assessment: with elevated HgbA1c Plan K Phos start clear liquids consider transfusion Hydrate- Monitor renal parameters Monitor CPK Antibiotics no herndon avoid nephrotoxics per GI med surg Subjective ROS Limited/Unobtainable: No Objective Objective Last 24 Hour Vital Signs Date Time Temp Pulse Resp B/P (MAP) Pulse Ox O2 Delivery O2 Flow Rate FiO2 04/25/18 09:00 Room Air 04/25/18 08:54 128/61 04/25/18 08:03 98.8 61 19 128/61 (83) 99 04/25/18 04:00 99.0 65 18 131/79 (96) 97 04/25/18 00:00 98.9 59 18 143/68 (93) 97 04/24/18 20:00 98.2 64 18 128/66 (86) 97 04/24/18 19:02 152/70 04/24/18 16:00 98.2 74 18 152/70 (97) 100 Intake and Output 04/24/18 04/25/18 19:00 07:00 Intake Total 675.53 ml 1020.0 ml Output Total 500 ml 600 ml Balance 175.53 ml 420.0 ml Intake Oral 220 ml 360 ml IV Total 455.53 ml 660.0 ml Output Urine Total 500 ml 600 ml # Voids 2 # Bowel Movements 1 Laboratory Tests 04/25/18 05:10: White Blood Count 7.9, Red Blood Count 2.54L, Hemoglobin 8.1L, Hematocrit 24.4L , Mean Corpuscular Volume 96, Mean Corpuscular Hemoglobin 32.0H, Mean Corpuscular Hemoglobin Concent 33.3, Red Cell Distribution Width 12.8, Platelet Count 174, Mean Platelet Volume 7.9, Neutrophils (%) (Auto) 64.1, Lymphocytes (% ) (Auto) 16.0L, Monocytes (%) (Auto) 7.5, Eosinophils (%) (Auto) 11.1H, Basophils (%) (Auto) 1.3, Sodium Level 145, Potassium Level 3.8, Chloride Level 116H, Carbon Dioxide Level 16L, Anion Gap 13, Blood Urea Nitrogen 16, Creatinine 1.3, Estimat Glomerular Filtration Rate 55.9, Glucose Level 140H, Uric Acid 3.5, Calcium Level 8.2L, Phosphorus Level 2.2L, Magnesium Level 1.7L, Total Bilirubin 0.6, Gamma Glutamyl Transpeptidase 122H, Aspartate Amino Transf (AST/SGOT) 21, Alanine Aminotransferase (ALT/SGPT) 36, Alkaline Phosphatase 135H , Total Creatine Kinase 162, Pro-B-Type Natriuretic Peptide 7169H, Total Protein 5.9L, Albumin 2.5L, Globulin 3.4, Albumin/Globulin Ratio 0.7L, Lipase 234 Height (Feet): 5 Height (Inches): 6.00 Weight (Pounds): 140 General Appearance: no apparent distress Objective no change Orlin Berrios MD Apr 25, 2018 12:05
--- NOTE | 2018-04-25 13:40 | Surgery Progress Note ---
Surgery Progress Note Subjective Additional Comments no acute events. improving Objective Last 24 Hour Vital Signs Date Time Temp Pulse Resp B/P (MAP) Pulse Ox O2 Delivery O2 Flow Rate FiO2 04/25/18 12:00 97.8 61 19 157/77 (103) 99 04/25/18 09:00 Room Air 04/25/18 08:54 128/61 04/25/18 08:03 98.8 61 19 128/61 (83) 99 04/25/18 04:00 99.0 65 18 131/79 (96) 97 04/25/18 00:00 98.9 59 18 143/68 (93) 97 04/24/18 20:00 98.2 64 18 128/66 (86) 97 04/24/18 19:02 152/70 04/24/18 16:00 98.2 74 18 152/70 (97) 100 I&O Intake and Output 04/24/18 04/25/18 19:00 07:00 Intake Total 675.53 ml 1020.0 ml Output Total 500 ml 600 ml Balance 175.53 ml 420.0 ml Intake Oral 220 ml 360 ml IV Total 455.53 ml 660.0 ml Output Urine Total 500 ml 600 ml # Voids 2 # Bowel Movements 1 Dressing: other Wound: other Drains: other Cardiovascular: RSR Respiratory: clear Abdomen: soft, flat, non-tender, decreased bowel sounds Extremities: other Laboratory Tests Test 04/25/18 05:10 White Blood Count 7.9 K/UL (4.8-10.8) Red Blood Count 2.54 M/UL (4.70-6.10) L Hemoglobin 8.1 G/DL (14.2-18.0) L Hematocrit 24.4 % (42.0-52.0) L Mean Corpuscular Volume 96 FL (80-99) Mean Corpuscular Hemoglobin 32.0 PG (27.0-31.0) H Mean Corpuscular Hemoglobin Concent 33.3 G/DL (32.0-36.0) Red Cell Distribution Width 12.8 % (11.6-14.8) Platelet Count 174 K/UL (150-450) Mean Platelet Volume 7.9 FL (6.5-10.1) Neutrophils (%) (Auto) 64.1 % (45.0-75.0) Lymphocytes (%) (Auto) 16.0 % (20.0-45.0) L Monocytes (%) (Auto) 7.5 % (1.0-10.0) Eosinophils (%) (Auto) 11.1 % (0.0-3.0) H Basophils (%) (Auto) 1.3 % (0.0-2.0) Sodium Level 145 MMOL/L (136-145) Potassium Level 3.8 MMOL/L (3.5-5.1) Chloride Level 116 MMOL/L (98-107) H Carbon Dioxide Level 16 MMOL/L (21-32) L Anion Gap 13 mmol/L (5-15) Blood Urea Nitrogen 16 mg/dL (7-18) Creatinine 1.3 MG/DL (0.55-1.30) Estimat Glomerular Filtration Rate 55.9 mL/min (>60) Glucose Level 140 MG/DL (74-106) H Uric Acid 3.5 MG/DL (2.6-7.2) Calcium Level 8.2 MG/DL (8.5-10.1) L Phosphorus Level 2.2 MG/DL (2.5-4.9) L Magnesium Level 1.7 MG/DL (1.8-2.4) L Total Bilirubin 0.6 MG/DL (0.2-1.0) Gamma Glutamyl Transpeptidase 122 U/L (5-85) H Aspartate Amino Transf (AST/SGOT) 21 U/L (15-37) Alanine Aminotransferase (ALT/SGPT) 36 U/L (12-78) Alkaline Phosphatase 135 U/L (46-116) H Total Creatine Kinase 162 U/L (26-308) Pro-B-Type Natriuretic Peptide 7169 pg/mL (0-125) H Total Protein 5.9 G/DL (6.4-8.2) L Albumin 2.5 G/DL (3.4-5.0) L Globulin 3.4 g/dL Albumin/Globulin Ratio 0.7 (1.0-2.7) L Lipase 234 U/L (73-393) Plan Problems: (1) Acute cholecystitis Assessment & Plan: US with Distended urinary bladder. Torres catheter not visualized but present. Clinical evaluation is needed. Recommend removal of the Torres catheter and replacement. Mild pelvocaliectasis noted which is likely on the basis of the distended bladder. Suspected choledocholithiasis with the one or more stones in the distal common bile duct. Moderate biliary ductal dilatation demonstrated. Cholelithiasis with distention of the gallbladder and wall thickening. Leukocytosis Hypotensive shock Abnormal LFT's. Possible choledocholithiasis MRI reviewed. likely gallstone pancreatitis with choledocholithiasis. labs improving jennifer/lip improved -clears for now. npo p mn thursday -IV fluids -IV Abx -ERCP Thursday as per GI -no acute surgical intervention planned -thank you for this consult. will follow with recs. (2) Hypovolemic shock Martin Sterling Apr 25, 2018 13:40
--- NOTE | 2018-04-25 16:13 | Pulmonology Progress Note ---
Assessment/Plan Assessment/Plan Pulmonary Progress Note Problems: (1) Anemia (2) Dehydration (3) JONA (acute kidney injury) (4) Choledocholithiasis with acute cholecystitis (5) Gallstone pancreatitis (6) Metabolic acidosis (7) Hypovolemic shock (8) Leg pain, left Assessment/Plan: ASSESSMENT: The patient is a 62-year-old male with a history of diabetes, hypertension, vasculopathy, likely CKD presenting with leg pain in the setting of dehydration and anion gap metabolic acidosis, likely sepsis. He is hypotensive with profound volume depletion. His w/u is consistent with gallstone pancreatitis and likely acute cholecystitis/choledocholithiasis PROBLEM LIST: 1. Shock, hypovolemic. 2. Gallstone pancreatitis 3. Acute cholelithiasis, possible choledocholithiasis 4. Leg pain. 5. JONA likely on CKD. 6. Anion-gap metabolic acidosis. 7. Leukocytosis. 8. Anemia. 9. Diabetes. 10. History of hypertension. 11. History of hip fracture. 12. History of vasculopathy. 13. Toe amputations and TMA. TREATMENT PLAN: 1. IVF 2. Off NE 3. Zosyn D #3 per ID 4. F/U Cx's and C diff 5. Bowel rest, NPO, IVF 6. venous and arterial duplex negative for DVT or ischemia 7. F/U surgery and GI recs: med management, plan for ERCP thursday 8. Monitor volumes and renal function 9. DVT prophylaxis heparin subcutaneous. 10. SSI, monit or BS 11. FC CCT 30 Objective Vital Signs Noted Status: awake Condition: improving HEENT: atraumatic, normocephalic Lungs: clear Heart: HR/BP stable Abdomen: soft, non-tender, active bowel sounds Extremities: no C/C/E, other - TMA and toe amps Micro: Microbiology Date/Time Source Procedure Growth Status 04/21/18 12:00 Blood Blood Culture - Preliminary NO GROWTH AFTER 24 HOURS Resulted 04/21/18 12:00 Blood Blood Culture - Preliminary NO GROWTH AFTER 24 HOURS Resulted 04/21/18 07:15 Nasal Nares MRSA Culture - Final NO METHICILLIN RESISTANT STAPH AUREUS... Complete 04/22/18 03:25 Urine,Clean Catch Urine Culture - Preliminary Gram Negative Bacillus 1 Resulted 04/21/18 07:15 Rectum VRE Culture - Final NO VANCOMYCIN RESISTANT ENTEROCOCCUS ... Complete 04/21/18 07:15 Rectum - Final NO CARBAPENEM-RESISTANT ENTEROBACTERI... Complete AFVSS off pressors, LFTs and CR better ERCP thursday IVF reduced Subjective: Better, less pain, no F/C, no CP, no SOB Labs: Laboratory Tests Test 04/23/18 05:00 04/23/18 11:45 White Blood Count 9.2 K/UL (4.8-10.8) Red Blood Count 2.36 M/UL (4.70-6.10) L Hemoglobin 7.6 G/DL (14.2-18.0) L Hematocrit 22.7 % (42.0-52.0) L Mean Corpuscular Volume 96 FL (80-99) Mean Corpuscular Hemoglobin 32.3 PG (27.0-31.0) H Mean Corpuscular Hemoglobin Concent 33.7 G/DL (32.0-36.0) Red Cell Distribution Width 13.1 % (11.6-14.8) Platelet Count 136 K/UL (150-450) L Mean Platelet Volume 9.4 FL (6.5-10.1) Neutrophils (%) (Auto) % (45.0-75.0) Lymphocytes (%) (Auto) % (20.0-45.0) Monocytes (%) (Auto) % (1.0-10.0) Eosinophils (%) (Auto) % (0.0-3.0) Basophils (%) (Auto) % (0.0-2.0) Differential Total Cells Counted 100 Neutrophils % (Manual) 77 % (45-75) H Lymphocytes % (Manual) 12 % (20-45) L Monocytes % (Manual) 8 % (1-10) Eosinophils % (Manual) 3 % (0-3) Basophils % (Manual) 0 % (0-2) Band Neutrophils 0 % (0-8) Platelet Estimate Decreased L Platelet Morphology Normal Red Blood Cell Morphology Normal Sodium Level 147 MMOL/L (136-145) H Potassium Level 3.6 MMOL/L (3.5-5.1) Chloride Level 120 MMOL/L (98-107) H Carbon Dioxide Level 15 MMOL/L (21-32) L Anion Gap 12 mmol/L (5-15) Blood Urea Nitrogen 34 mg/dL (7-18) H Creatinine 1.7 MG/DL (0.55-1.30) H Estimat Glomerular Filtration Rate 41.0 mL/min (>60) Glucose Level 63 MG/DL (74-106) #L Uric Acid 5.0 MG/DL (2.6-7.2) Calcium Level 7.6 MG/DL (8.5-10.1) L Phosphorus Level 3.2 MG/DL (2.5-4.9) Magnesium Level 2.2 MG/DL (1.8-2.4) Total Bilirubin 0.4 MG/DL (0.2-1.0) Gamma Glutamyl Transpeptidase 121 U/L (5-85) H Aspartate Amino Transf (AST/SGOT) 55 U/L (15-37) H Alanine Aminotransferase (ALT/SGPT) 51 U/L (12-78) Alkaline Phosphatase 156 U/L (46-116) H Total Creatine Kinase 839 U/L (26-308) H Pro-B-Type Natriuretic Peptide 6586 pg/mL (0-125) H Total Protein 5.5 G/DL (6.4-8.2) L Albumin 2.5 G/DL (3.4-5.0) L Globulin 3.0 g/dL Albumin/Globulin Ratio 0.8 (1.0-2.7) L Amylase Level 382 U/L (25-115) H Lipase 1190 U/L (73-393) H Urine Random Sodium 68 mmol/L (20-110) Subjective ROS Limited/Unobtainable: No Allergies: Coded Allergies: No Known Allergies (Unverified , 04/21/18) Objective Last 24 Hour Vital Signs Date Time Temp Pulse Resp B/P (MAP) Pulse Ox O2 Delivery O2 Flow Rate FiO2 04/25/18 12:00 97.8 61 19 157/77 (103) 99 04/25/18 09:00 Room Air 04/25/18 08:54 128/61 04/25/18 08:03 98.8 61 19 128/61 (83) 99 04/25/18 04:00 99.0 65 18 131/79 (96) 97 04/25/18 00:00 98.9 59 18 143/68 (93) 97 04/24/18 20:00 98.2 64 18 128/66 (86) 97 04/24/18 19:02 152/70 Intake and Output 2/9/19 2/10/19 19:00 07:00 Intake Total 675.53 ml 1020.0 ml Output Total 500 ml 600 ml Balance 175.53 ml 420.0 ml Intake Oral 220 ml 360 ml IV Total 455.53 ml 660.0 ml Output Urine Total 500 ml 600 ml # Voids 2 # Bowel Movements 1 Microbiology Date/Time Source Procedure Growth Status 04/23/18 11:10 Stool Clostridium difficile Toxin Assay - Final Complete Laboratory Tests 04/25/18 05:10: White Blood Count 7.9, Red Blood Count 2.54L, Hemoglobin 8.1L, Hematocrit 24.4L , Mean Corpuscular Volume 96, Mean Corpuscular Hemoglobin 32.0H, Mean Corpuscular Hemoglobin Concent 33.3, Red Cell Distribution Width 12.8, Platelet Count 174, Mean Platelet Volume 7.9, Neutrophils (%) (Auto) 64.1, Lymphocytes (% ) (Auto) 16.0L, Monocytes (%) (Auto) 7.5, Eosinophils (%) (Auto) 11.1H, Basophils (%) (Auto) 1.3, Sodium Level 145, Potassium Level 3.8, Chloride Level 116H, Carbon Dioxide Level 16L, Anion Gap 13, Blood Urea Nitrogen 16, Creatinine 1.3, Estimat Glomerular Filtration Rate 55.9, Glucose Level 140H, Uric Acid 3.5, Calcium Level 8.2L, Phosphorus Level 2.2L, Magnesium Level 1.7L, Total Bilirubin 0.6, Gamma Glutamyl Transpeptidase 122H, Aspartate Amino Transf (AST/SGOT) 21, Alanine Aminotransferase (ALT/SGPT) 36, Alkaline Phosphatase 135H , Total Creatine Kinase 162, Pro-B-Type Natriuretic Peptide 7169H, Total Protein 5.9L, Albumin 2.5L, Globulin 3.4, Albumin/Globulin Ratio 0.7L, Lipase 234 Current Medications Medications (Trade) Dose Ordered Sig/Jamal Route PRN Reason Start Time Stop Time Status Last Admin Dose Admin Acetaminophen (Tylenol) 500 mg Q4H PRN ORAL Mild Pain/Temp > 100.5 04/24/18 14:00 05/23/18 13:59 Chlorhexidine Gluconate (Jen-Hex 2%) 1 applic DAILY@2000 TOPIC 04/24/18 20:00 05/22/18 19:59 Dextrose (Dextrose 50%) 25 ml Q30M PRN IV Hypoglycemia 04/24/18 14:00 05/21/18 10:59 Dextrose (Dextrose 50%) 50 ml Q30M PRN IV Hypoglycemia 04/24/18 14:00 05/21/18 10:59 Dextrose/Sodium Chloride 1,000 ml @ 50 mls/hr Q20H IV 04/24/18 14:00 05/24/18 11:14 04/25/18 06:14 Folic Acid (Folate) 3 mg DAILY ORAL 04/25/18 09:00 05/22/18 17:14 04/25/18 08:54 Heparin Sodium (Porcine) (Heparin 5000 units/ml) 5,000 units EVERY 12 HOURS SUBQ 04/24/18 21:00 05/23/18 20:59 04/25/18 08:55 Insulin Aspart (NovoLOG) BEFORE MEALS AND HS SUBQ 04/24/18 16:30 05/21/18 11:29 04/25/18 11:41 Lisinopril (Zestril) 5 mg DAILY ORAL 04/25/18 09:00 05/25/18 08:59 04/25/18 08:54 Pantoprazole (Protonix) 40 mg DAILY IVP 04/25/18 09:00 05/22/18 08:59 04/25/18 08:54 Piperacillin Sod/ Tazobactam Sod 3.375 gm/Dextrose 110 ml @ 27.5 mls/hr EVERY 8 HOURS IVPB 04/24/18 14:00 04/29/18 13:59 04/25/18 14:51 Potassium Phosphate 30 mm/ Sodium Chloride 285 ml @ 47.5 mls/hr ONCE ONCE IV 04/25/18 12:00 04/25/18 17:59 04/25/18 12:08 Valeriy Kumar MD Apr 25, 2018 16:13
--- NOTE | 2018-04-25 16:33 | GI Progress Note ---
Assessment/Plan Problems: (1) Diabetes ICD Codes: E11.9 - Type 2 diabetes mellitus without complications SNOMED: 49508785 (2) Anemia ICD Codes: D64.9 - Anemia, unspecified SNOMED: 864260971 (3) Choledocholithiasis with acute cholecystitis ICD Codes: K80.42 - Calculus of bile duct with acute cholecystitis without obstruction SNOMED: 46802893 (4) Dehydration ICD Codes: E86.0 - Dehydration SNOMED: 71021138 (5) Gall bladder stones ICD Codes: K80.20 - Calculus of gallbladder without cholecystitis without obstruction SNOMED: 976223948 Status: stable Status Narrative Discussed with Dr. Lambert. Assessment/Plan ERCP scheduled tomorrow. Maintain n.p.o. plus aggressive IV hydration Pain management Follow labs, trend lipase anemia work up OB stool r/o GI bleed monitor H&H, prn transfusions bowel regime ppi The patient was seen and examined at bedside and all new and available data was reviewed in the patients chart. I agree with the above findings, impression and plan. (Patient seen earlier today. Signature stamp does not reflect patient encounter time.). - León Lambert MD Subjective Subjective Tolerating clear liquid diet Objective Last 24 Hour Vital Signs Date Time Temp Pulse Resp B/P (MAP) Pulse Ox O2 Delivery O2 Flow Rate FiO2 04/25/18 16:00 98.3 60 19 144/69 (94) 97 04/25/18 12:00 97.8 61 19 157/77 (103) 99 04/25/18 09:00 Room Air 04/25/18 08:54 128/61 04/25/18 08:03 98.8 61 19 128/61 (83) 99 04/25/18 04:00 99.0 65 18 131/79 (96) 97 04/25/18 00:00 98.9 59 18 143/68 (93) 97 04/24/18 20:00 98.2 64 18 128/66 (86) 97 04/24/18 19:02 152/70 Intake and Output 04/24/18 04/25/18 19:00 07:00 Intake Total 675.53 ml 1020.0 ml Output Total 500 ml 600 ml Balance 175.53 ml 420.0 ml Intake Oral 220 ml 360 ml IV Total 455.53 ml 660.0 ml Output Urine Total 500 ml 600 ml # Voids 2 # Bowel Movements 1 Laboratory Tests Test 04/25/18 05:10 White Blood Count 7.9 K/UL (4.8-10.8) Red Blood Count 2.54 M/UL (4.70-6.10) L Hemoglobin 8.1 G/DL (14.2-18.0) L Hematocrit 24.4 % (42.0-52.0) L Mean Corpuscular Volume 96 FL (80-99) Mean Corpuscular Hemoglobin 32.0 PG (27.0-31.0) H Mean Corpuscular Hemoglobin Concent 33.3 G/DL (32.0-36.0) Red Cell Distribution Width 12.8 % (11.6-14.8) Platelet Count 174 K/UL (150-450) Mean Platelet Volume 7.9 FL (6.5-10.1) Neutrophils (%) (Auto) 64.1 % (45.0-75.0) Lymphocytes (%) (Auto) 16.0 % (20.0-45.0) L Monocytes (%) (Auto) 7.5 % (1.0-10.0) Eosinophils (%) (Auto) 11.1 % (0.0-3.0) H Basophils (%) (Auto) 1.3 % (0.0-2.0) Sodium Level 145 MMOL/L (136-145) Potassium Level 3.8 MMOL/L (3.5-5.1) Chloride Level 116 MMOL/L (98-107) H Carbon Dioxide Level 16 MMOL/L (21-32) L Anion Gap 13 mmol/L (5-15) Blood Urea Nitrogen 16 mg/dL (7-18) Creatinine 1.3 MG/DL (0.55-1.30) Estimat Glomerular Filtration Rate 55.9 mL/min (>60) Glucose Level 140 MG/DL (74-106) H Uric Acid 3.5 MG/DL (2.6-7.2) Calcium Level 8.2 MG/DL (8.5-10.1) L Phosphorus Level 2.2 MG/DL (2.5-4.9) L Magnesium Level 1.7 MG/DL (1.8-2.4) L Total Bilirubin 0.6 MG/DL (0.2-1.0) Gamma Glutamyl Transpeptidase 122 U/L (5-85) H Aspartate Amino Transf (AST/SGOT) 21 U/L (15-37) Alanine Aminotransferase (ALT/SGPT) 36 U/L (12-78) Alkaline Phosphatase 135 U/L (46-116) H Total Creatine Kinase 162 U/L (26-308) Pro-B-Type Natriuretic Peptide 7169 pg/mL (0-125) H Total Protein 5.9 G/DL (6.4-8.2) L Albumin 2.5 G/DL (3.4-5.0) L Globulin 3.4 g/dL Albumin/Globulin Ratio 0.7 (1.0-2.7) L Lipase 234 U/L (73-393) Height (Feet): 5 Height (Inches): 6.00 Weight (Pounds): 140 General Appearance: WD/WN, no apparent distress, alert Cardiovascular: normal rate Respiratory/Chest: normal breath sounds, no respiratory distress Abdominal Exam: normal bowel sounds, non tender, soft Extremities: normal range of motion, non-tender Lori Douglass NP Apr 25, 2018 16:33
[2018-04-25] MEDS: Dyna-Hex 2% Top Sol 2oz TOPIC SCH (20:41)
--- NOTE | 2018-04-25 21:14 | General Progress Note ---
Assessment/Plan Problem List: (1) ARF (acute renal failure) ICD Codes: N17.9 - Acute kidney failure, unspecified SNOMED: 65445487 Qualifiers: Qualified Codes: N17.9 - Acute kidney failure, unspecified (2) Hypovolemic shock ICD Codes: R57.1 - Hypovolemic shock SNOMED: 69579706 (3) JONA (acute kidney injury) ICD Codes: N17.9 - Acute kidney failure, unspecified SNOMED: 53835809 Status: progressing Assessment/Plan arf resolved anemia consulted heme/onc for anemia afebrile Subjective ROS Limited/Unobtainable: Yes Allergies: Coded Allergies: No Known Allergies (Unverified , 04/21/18) Subjective general pain Objective Last 24 Hour Vital Signs Date Time Temp Pulse Resp B/P (MAP) Pulse Ox O2 Delivery O2 Flow Rate FiO2 04/25/18 20:00 98.3 62 18 130/61 (84) 98 04/25/18 16:00 98.3 60 19 144/69 (94) 97 04/25/18 12:00 97.8 61 19 157/77 (103) 99 04/25/18 09:00 Room Air 04/25/18 08:54 128/61 04/25/18 08:03 98.8 61 19 128/61 (83) 99 04/25/18 04:00 99.0 65 18 131/79 (96) 97 04/25/18 00:00 98.9 59 18 143/68 (93) 97 Intake and Output 04/24/18 04/25/18 19:00 07:00 Intake Total 675.53 ml 1020.0 ml Output Total 500 ml 600 ml Balance 175.53 ml 420.0 ml Intake Oral 220 ml 360 ml IV Total 455.53 ml 660.0 ml Output Urine Total 500 ml 600 ml # Voids 2 # Bowel Movements 1 Laboratory Tests 04/25/18 05:10: White Blood Count 7.9, Red Blood Count 2.54L, Hemoglobin 8.1L, Hematocrit 24.4L , Mean Corpuscular Volume 96, Mean Corpuscular Hemoglobin 32.0H, Mean Corpuscular Hemoglobin Concent 33.3, Red Cell Distribution Width 12.8, Platelet Count 174, Mean Platelet Volume 7.9, Neutrophils (%) (Auto) 64.1, Lymphocytes (% ) (Auto) 16.0L, Monocytes (%) (Auto) 7.5, Eosinophils (%) (Auto) 11.1H, Basophils (%) (Auto) 1.3, Sodium Level 145, Potassium Level 3.8, Chloride Level 116H, Carbon Dioxide Level 16L, Anion Gap 13, Blood Urea Nitrogen 16, Creatinine 1.3, Estimat Glomerular Filtration Rate 55.9, Glucose Level 140H, Uric Acid 3.5, Calcium Level 8.2L, Phosphorus Level 2.2L, Magnesium Level 1.7L, Total Bilirubin 0.6, Gamma Glutamyl Transpeptidase 122H, Aspartate Amino Transf (AST/SGOT) 21, Alanine Aminotransferase (ALT/SGPT) 36, Alkaline Phosphatase 135H , Total Creatine Kinase 162, Pro-B-Type Natriuretic Peptide 7169H, Total Protein 5.9L, Albumin 2.5L, Globulin 3.4, Albumin/Globulin Ratio 0.7L, Lipase 234 Height (Feet): 5 Height (Inches): 6.00 Weight (Pounds): 140 Cardiovascular: normal rate Respiratory/Chest: lungs clear Oksana Casey MD Apr 25, 2018 21:14
--- NOTE | 2018-04-25 23:06 | Cardiology Progress Note ---
Assessment/Plan Assessment/Plan 1. Septic shock, continue hydration. Echo reveals normal LV systolic and diastolic function. 2. JONA, creatinine at 1.3. 3. History of diabetes mellitus. 4. History of hypertension. 5. Gallstone pancreatitis. Subjective Subjective Sinus rhythm at rate of 62. Objective Last 24 Hour Vital Signs Date Time Temp Pulse Resp B/P (MAP) Pulse Ox O2 Delivery O2 Flow Rate FiO2 04/25/18 21:00 Room Air 04/25/18 20:00 98.3 62 18 130/61 (84) 98 04/25/18 16:00 98.3 60 19 144/69 (94) 97 04/25/18 12:00 97.8 61 19 157/77 (103) 99 04/25/18 09:00 Room Air 04/25/18 08:54 128/61 04/25/18 08:03 98.8 61 19 128/61 (83) 99 04/25/18 04:00 99.0 65 18 131/79 (96) 97 04/25/18 00:00 98.9 59 18 143/68 (93) 97 Intake and Output 04/24/18 04/25/18 19:00 07:00 Intake Total 675.53 ml 1020.0 ml Output Total 500 ml 600 ml Balance 175.53 ml 420.0 ml Intake Oral 220 ml 360 ml IV Total 455.53 ml 660.0 ml Output Urine Total 500 ml 600 ml # Voids 2 # Bowel Movements 1 2D Echo: LVEF 55%, RVSP 42 mmHg Laboratory Tests Test 04/25/18 05:10 White Blood Count 7.9 K/UL (4.8-10.8) Red Blood Count 2.54 M/UL (4.70-6.10) L Hemoglobin 8.1 G/DL (14.2-18.0) L Hematocrit 24.4 % (42.0-52.0) L Mean Corpuscular Volume 96 FL (80-99) Mean Corpuscular Hemoglobin 32.0 PG (27.0-31.0) H Mean Corpuscular Hemoglobin Concent 33.3 G/DL (32.0-36.0) Red Cell Distribution Width 12.8 % (11.6-14.8) Platelet Count 174 K/UL (150-450) Mean Platelet Volume 7.9 FL (6.5-10.1) Neutrophils (%) (Auto) 64.1 % (45.0-75.0) Lymphocytes (%) (Auto) 16.0 % (20.0-45.0) L Monocytes (%) (Auto) 7.5 % (1.0-10.0) Eosinophils (%) (Auto) 11.1 % (0.0-3.0) H Basophils (%) (Auto) 1.3 % (0.0-2.0) Sodium Level 145 MMOL/L (136-145) Potassium Level 3.8 MMOL/L (3.5-5.1) Chloride Level 116 MMOL/L (98-107) H Carbon Dioxide Level 16 MMOL/L (21-32) L Anion Gap 13 mmol/L (5-15) Blood Urea Nitrogen 16 mg/dL (7-18) Creatinine 1.3 MG/DL (0.55-1.30) Estimat Glomerular Filtration Rate 55.9 mL/min (>60) Glucose Level 140 MG/DL (74-106) H Uric Acid 3.5 MG/DL (2.6-7.2) Calcium Level 8.2 MG/DL (8.5-10.1) L Phosphorus Level 2.2 MG/DL (2.5-4.9) L Magnesium Level 1.7 MG/DL (1.8-2.4) L Total Bilirubin 0.6 MG/DL (0.2-1.0) Gamma Glutamyl Transpeptidase 122 U/L (5-85) H Aspartate Amino Transf (AST/SGOT) 21 U/L (15-37) Alanine Aminotransferase (ALT/SGPT) 36 U/L (12-78) Alkaline Phosphatase 135 U/L (46-116) H Total Creatine Kinase 162 U/L (26-308) Pro-B-Type Natriuretic Peptide 7169 pg/mL (0-125) H Total Protein 5.9 G/DL (6.4-8.2) L Albumin 2.5 G/DL (3.4-5.0) L Globulin 3.4 g/dL Albumin/Globulin Ratio 0.7 (1.0-2.7) L Lipase 234 U/L (73-393) Microbiology Date/Time Source Procedure Growth Status 04/23/18 11:10 Stool Clostridium difficile Toxin Assay - Final Complete Objective HEENT: Atraumatic, normocephalic. ENT, pupils are equal, round, and reactive to light and accommodation. Extraocular muscles intact. NECK: JVP less than 5 cm. No carotid bruit. Carotid upstrokes 2+ bilaterally. CARDIOVASCULAR SYSTEM: Normal S1, S2. Regular rate and rhythm. No murmurs, gallops, or rubs. PMI is at fourth intercostal space at midclavicular line. LUNGS: Clear to auscultation bilaterally. ABDOMEN: Soft, nontender, and nondistended. No hepatosplenomegaly. Positive bowel sounds. EXTREMITIES: No evidence of edema, clubbing, or cyanosis. Alvaro Hargrove MD Apr 25, 2018 23:06
[2018-04-26] VITALS (11 sets, daily range): BP systolic 104–173; BP diastolic 59–87
[2018-04-26] MEDS: D5 1/2NS 1,000 ML IV SCH (05:18)
[2018-04-26] MEDS: Piperacillin/Tazobactam 3.375 GM in D5W 110 ML IVPB SCH ×3 (05:19→21:00)
[2018-04-26] MEDS: NovoLOG Insulin Flexpen SUBQ SCH ×4 (05:43→21:03)
[2018-04-26 08:02] LABS: INR 1.3 (0.9-1.1)
[2018-04-26 08:13] LABS: ANION GAP 11 mmol/L (5-15); BLOOD UREA NITROGEN 8 mg/dL (7-18); CALCIUM 7.7 MG/DL (8.5-10.1); CARBON DIOXIDE 16 MMOL/L (21-32); CHLORIDE 114 MMOL/L (98-107); CREATININE 1.3 MG/DL (0.55-1.30); POTASSIUM 3.6 MMOL/L (3.5-5.1); SODIUM 141 MMOL/L (136-145)
[2018-04-26] MEDS ORDERED: Iothalamate Meglumine 60% 30ML INJ ONE ×2 (08:25→12:54)
[2018-04-26] MEDS: Pantoprazole Inj IVP SCH (08:38)
[2018-04-26] MEDS: Lisinopril 2.5mg tab ORAL SCH (08:39)
[2018-04-26] MEDS: Heparin 5000 units/ml inj SUBQ SCH ×2 (08:54→20:57)
[2018-04-26] MEDS ORDERED: LR 1000ml 1,000 ML IVLG SCH (11:54)
--- NOTE | 2018-04-26 11:54 | Anethesia Preoperative Eval ---
Anesthesia Pre-op PMH/ROS General Date of Evaluation: Apr 26, 2018 Anesthesiologist: Jos ASA Score: ASA 3 Mallampati Score Class I : Soft palate, uvula, fauces, pillars visible Class II: Soft palate, uvula, fauces visible Class III: Soft palate, base of uvula visible Class IV: Only hard plate visible Mallampati Classification: Class III Surgeon: Fausto Diagnosis: Gallstone pancreatitis Surgical Procedure: ERCP Anesthesia History: none Family History: no anesthesia problems Allergies: Coded Allergies: No Known Allergies (Unverified , 04/21/18) Medications: see eMAR Patient NPO?: Yes NPO Date: Apr 25, 2018 NPO Time: 20:00 Past Medical History Cardiovascular: Reports: HTN; Denies: CAD, [place], valve dz, arrhythmia, other Pulmonary: Denies: asthma, COPD, GALINA, other Gastrointestinal/Genitourinary: Reports: other - JONA, gallstone pancreatitis; Denies: GERD, CRI, ESRD Neurologic/Psychiatric: Denies: dementia, CVA, depression/anxiety, TIA, other Endocrine: Reports: DM; Denies: hypothyroidism, steroids, other HEENT: Denies: cataract (L), cataract (R), glaucoma, MARSHALL (L), MARSHALL (R), other Hematology/Immune: Reports: anemia; Denies: DVT, bleeding disorder, other Musculoskeletal/Integumentary: Denies: OA, RA, DJD, DDD, edema, other PSxH Narrative: Right TMA, left knee sx Anesthesia Pre-op Phys. Exam Physician Exam Last Vital Signs Date Time Temp Pulse Resp B/P (MAP) Pulse Ox O2 Delivery O2 Flow Rate FiO2 04/26/18 11:44 98.0 66 17 173/81 (111) 98 04/26/18 09:00 Room Air Constitutional: NAD Cardiovascular: RRR Respiratory: CTA Airway Exam Mallampati Score: Class III MO: full ROM: full Teeth: intact Anesthesia Pre-op A/P Labs Coagulation Test 04/26/18 07:15 Prothrombin Time 13.1 SEC (9.30-11.50) H Prothromb Time International Ratio 1.3 (0.9-1.1) H Activated Partial Thromboplast Time 43 SEC (23-33) H Chemistry Test 04/26/18 07:15 Sodium Level 141 MMOL/L (136-145) Potassium Level 3.6 MMOL/L (3.5-5.1) Chloride Level 114 MMOL/L (98-107) H Carbon Dioxide Level 16 MMOL/L (21-32) L Anion Gap 11 mmol/L (5-15) Blood Urea Nitrogen 8 mg/dL (7-18) Creatinine 1.3 MG/DL (0.55-1.30) Estimat Glomerular Filtration Rate 55.9 mL/min (>60) Glucose Level 142 MG/DL (74-106) H Calcium Level 7.7 MG/DL (8.5-10.1) L Studies Pre-op Studies: EKG - sr Risk Assessment & Plan Assessment: ASA II Plan: MAC Status Change Before Surgery: No Pre-Antibiotics Drug: Karon Perdomo MD Apr 26, 2018 11:54
[2018-04-26] MEDS ORDERED: Metoclopramide 10mg/2ml Inj IVP PRN (12:00)
[2018-04-26] MEDS ORDERED: LORazepam Inj 2mg/ml 1ml IV PRN (12:00)
[2018-04-26] MEDS ORDERED: fentaNYL 100 mcg/2 mL IV PRN (12:00)
[2018-04-26] MEDS ORDERED: DiphenhydrAMINE 50mg/ml Inj IVP PRN (12:00)
[2018-04-26] MEDS ORDERED: Hydromorphone 0.5mg/0.5ml inj IVP PRN (12:00)
[2018-04-26] MEDS ORDERED: Midazolam 2mg/2ml Inj IVP PRN (12:00)
--- NOTE | 2018-04-26 12:13 | Immediate Post-Op Evaluation ---
Immediate Post-Op Evalulation Immediate Post-Op Evalulation Procedure: ERCP Date of Evaluation: Apr 26, 2018 Time of Evaluation: 13:32 IV Fluids: 200 Blood Products: 0 Estimated Blood Loss: 0 Urinary Output: 0 Blood Pressure Systolic: 104 Blood Pressure Diastolic: 59 Pulse Rate: 56 Respiratory Rate: 16 O2 Sat by Pulse Oximetry: 100 Temperature (Fahrenheit): 97.7 Pain Score (1-10): 0 Nausea: No Vomiting: No Complications 0 Patient Status: awake, reacts, patent, none Hydration Status: adequate Drug: N/A Karon Geiger MD Apr 26, 2018 12:13
--- NOTE | 2018-04-26 12:13 | Surgery Progress Note ---
Surgery Progress Note Subjective Additional Comments no acute events. improving. pending ERCP today Objective Last 24 Hour Vital Signs Date Time Temp Pulse Resp B/P (MAP) Pulse Ox O2 Delivery O2 Flow Rate FiO2 04/26/18 11:44 98.0 66 17 173/81 (111) 98 04/26/18 09:00 Room Air 04/26/18 08:39 166/76 04/26/18 08:00 97.9 67 18 166/76 (106) 100 04/26/18 04:00 98.7 64 17 139/67 (91) 98 04/25/18 23:47 98.0 64 17 133/70 (91) 99 04/25/18 21:00 Room Air 04/25/18 20:00 98.3 62 18 130/61 (84) 98 04/25/18 16:00 98.3 60 19 144/69 (94) 97 I&O Intake and Output 04/25/18 04/26/18 18:59 06:59 Intake Total 1640 ml 637.5 ml Output Total 900 ml Balance 1640 ml -262.5 ml Intake Oral 1090 ml IV Total 550 ml 637.5 ml Output Urine Total 900 ml # Bowel Movements 1 Drains: none Cardiovascular: RSR Respiratory: clear Abdomen: soft, distended, non-tender, present bowel sounds Extremities: other Laboratory Tests Test 04/26/18 07:15 Prothrombin Time 13.1 SEC (9.30-11.50) H Prothromb Time International Ratio 1.3 (0.9-1.1) H Activated Partial Thromboplast Time 43 SEC (23-33) H Sodium Level 141 MMOL/L (136-145) Potassium Level 3.6 MMOL/L (3.5-5.1) Chloride Level 114 MMOL/L (98-107) H Carbon Dioxide Level 16 MMOL/L (21-32) L Anion Gap 11 mmol/L (5-15) Blood Urea Nitrogen 8 mg/dL (7-18) Creatinine 1.3 MG/DL (0.55-1.30) Estimat Glomerular Filtration Rate 55.9 mL/min (>60) Glucose Level 142 MG/DL (74-106) H Calcium Level 7.7 MG/DL (8.5-10.1) L Plan Problems: (1) Acute cholecystitis Assessment & Plan: US with Distended urinary bladder. Torres catheter not visualized but present. Clinical evaluation is needed. Recommend removal of the Torres catheter and replacement. Mild pelvocaliectasis noted which is likely on the basis of the distended bladder. Suspected choledocholithiasis with the one or more stones in the distal common bile duct. Moderate biliary ductal dilatation demonstrated. Cholelithiasis with distention of the gallbladder and wall thickening. Leukocytosis Hypotensive shock Abnormal LFT's. Possible choledocholithiasis MRI reviewed. likely gallstone pancreatitis with choledocholithiasis. labs improving jennifer/lip improved -ERCP planned for today -IV fluids -IV Abx -okay for diet after -no acute surgical intervention planned -thank you for this consult. will follow with recs. (2) Hypovolemic shock Martin Sterling Apr 26, 2018 12:13
--- NOTE | 2018-04-26 12:29 | Pre-Procedure Note/Attestation ---
Pre-Procedure Note/Attestation Complete Prior to Procedure Planned Procedure: not applicable Procedure Narrative: ercp Indications for Procedure Pre-Operative Diagnosis: choledocholithiasis Attestation I attest that I discussed the nature of the procedure; its benefits; risks and complications; and alternatives (and the risks and benefits of such alternatives ), prior to the procedure, with the patient (or the patient's legal member service representative). I attest that, if there was a reasonable possibility of needing a blood transfusion, the patient (or the patient's legal member service representative) was given the [facility] standardized written summary, pursuant to the Ja [place] Blood Safety Act ([place] Health and Safety Code # 1645, as amended). I attest that I re-evaluated the patient just prior to the surgery and that there has been no change in the patient's H&P, except as documented below: León Lambert MD Apr 26, 2018 12:29
[2018-04-26] MEDS ORDERED: Propofol 200mg/20ml IV ONE (12:30)
[2018-04-26] MEDS ORDERED: Lidocaine 1% MPF 10mg/ml 5ml ONE (12:30)
[2018-04-26] MEDS ORDERED: NS 500ML IVPB ONE (12:40)
--- NOTE | 2018-04-26 13:05 | 48 Hour Post Anesthesia Eval ---
Post Anesthesia Evaluation Procedure: ERCP Date of Evaluation: Apr 26, 2018 Airway: patent Nausea: No Vomiting: No Pain Intensity: 0 Hydration Status: adequate Cardiopulmonary Status: at baselinme Mental Status/LOC: patient returned to baseline Post-Anesthesia Complications: 0 Follow-up care needed: N/A - [facility] Karon Geiger MD Apr 26, 2018 13:05
--- NOTE | 2018-04-26 13:07 | Nephrology Progress Note ---
Assessment/Plan Problem List: (1) JONA (acute kidney injury) Assessment: Cr lowering (2) Gallstone pancreatitis (3) Anemia (4) Dehydration (5) Hypovolemic shock (6) Diabetes Assessment: with elevated HgbA1c Plan K Phos BP meds- consider transfusion as needed Hydrate- as needed Monitor renal parameters Monitor CPK Antibiotics no herndon avoid nephrotoxics per GI med surg Subjective ROS Limited/Unobtainable: No Constitutional: Reports: malaise Objective Objective Last 24 Hour Vital Signs Date Time Temp Pulse Resp B/P (MAP) Pulse Ox O2 Delivery O2 Flow Rate FiO2 04/26/18 12:00 156/87 (110) 04/26/18 11:44 98.0 66 17 173/81 (111) 98 04/26/18 09:00 Room Air 04/26/18 08:39 166/76 04/26/18 08:00 97.9 67 18 166/76 (106) 100 04/26/18 04:00 98.7 64 17 139/67 (91) 98 04/25/18 23:47 98.0 64 17 133/70 (91) 99 04/25/18 21:00 Room Air 04/25/18 20:00 98.3 62 18 130/61 (84) 98 04/25/18 16:00 98.3 60 19 144/69 (94) 97 Intake and Output 04/25/18 04/26/18 18:59 06:59 Intake Total 1640 ml 637.5 ml Output Total 900 ml Balance 1640 ml -262.5 ml Intake Oral 1090 ml IV Total 550 ml 637.5 ml Output Urine Total 900 ml # Bowel Movements 1 Laboratory Tests 04/26/18 07:15: Prothrombin Time 13.1H, Prothromb Time International Ratio 1.3H, Activated Partial Thromboplast Time 43H, Sodium Level 141, Potassium Level 3.6, Chloride Level 114H, Carbon Dioxide Level 16L, Anion Gap 11, Blood Urea Nitrogen 8, Creatinine 1.3, Estimat Glomerular Filtration Rate 55.9, Glucose Level 142H, Calcium Level 7.7L Height (Feet): 5 Height (Inches): 5.00 Weight (Pounds): 140 General Appearance: no apparent distress Objective no change Orlin Berrios MD Apr 26, 2018 13:07
--- NOTE | 2018-04-26 13:32 | Endoscopy Procedure Note ---
Endoscopy Procedure Note General Indication for Procedure: choledocholithiasis Procedures Performed: ERCP Operative Findings/Diagnosis: same Specimen: none Pt Tolerated Procedure Well: Yes Estimated Blood Loss: none Anesthesia Anesthesiologist: juana Anesthesia: MAC Inserted Devices Implant(s) used?: No GI Core Measures 50 yrs or older w/o bx or poly: Not Applicable 10yrs. F/U not recommended: Not Applicable León Lambert MD Apr 26, 2018 13:32
--- NOTE | 2018-04-26 16:00 | Procedure Note ---
DATE OF PROCEDURE: 04/26/2018 SURGEON: León Lambert M.D. PROCEDURE: ERCP with sphincterotomy, balloon assistant auditor, and stone extraction. ANESTHESIA: Per Dr. Arguello. INSTRUMENT: Olympus adult flexible ERCP scope. REASON FOR PROCEDURE: The procedure, risks, benefits, and possible consequences, including hemorrhage, aspiration, perforation and infection, and alternative treatments, were explained to the patient/legal guardian by Dr. León Lambert and the patient/legal guardian understood and accepted these risks. INDICATION: 1. Choledocholithiasis. 2. Gallstone pancreatitis. DESCRIPTION OF PROCEDURE: After informed consent was obtained and the patient was adequately sedated, the Olympus ERCP scope was advanced from the mouth into the second portion of duodenum. Using a sphincterotome, common bile duct was selectively cannulated. Initial cholangiogram showed common bile duct dilation to about 10 mm with multiple filling defect in the distal common bile duct suggestive of stone. Then over a guidewire, we performed 95% sphincterotomy. Then a balloon was used to sweep the duct multiple times. At least four stones were removed, three of them were small but one was over a centimeter. After the stones were removed, we performed balloon occlusion cholangiogram which showed no further filling defect in the common bile duct. The flow of contrast from common bile duct to the duodenum was excellent so no stent was placed. SUMMARY OF FINDINGS: 1. Choledocholithiasis. 2. Status post ERCP, sphincterotomy, stone removal. RECOMMENDATIONS: 1. Follow labs. 2. Start diet and advance as tolerated. 3. Follow up with surgery regarding possibility of cholecystectomy. I want to thank, Dr. Casey, for this kind referral. León Lambert M.D. DR: Donna JOB#: [id number] CC: Oksana Casey M.D.; Fax#: [phone]
[2018-04-26] MEDS: HydrALAZINE 25mg tab ORAL PRN (16:13)
[2018-04-26 16:19] LABS: BASOPHILS % (AUTO) 1.2 % (0.0-2.0); EOSINOPHILS % (AUTO) 7.9 % (0.0-3.0); HEMATOCRIT 28.7 % (42.0-52.0); HEMOGLOBIN 9.7 G/DL (14.2-18.0); LYMPHOCYTES % (AUTO) 12.3 % (20.0-45.0); MEAN CORPUSCULAR VOLUME 93 FL (80-99); MONOCYTES % (AUTO) 6.8 % (1.0-10.0); NEUTROPHILS % (AUTO) 71.8 % (45.0-75.0); PLATELET COUNT 172 K/UL (150-450); RED CELL DISTRIBUTION WIDTH 13.4 % (11.6-14.8); WHITE BLOOD COUNT 7.6 K/UL (4.8-10.8)
--- NOTE | 2018-04-26 17:04 | Diagnostic Imaging Report ---
INDICATION: Pain, intraoperative TECHNIQUE: Intraoperative imaging Fluoroscopy time: 153.6 seconds Total dose: 0.06269 mGym2 Total number of images: 6 COMPARISON: Reference made to MRCP to 09/02/2018 FINDINGS: Intraoperative images demonstrate dilated extra hepatic bile ducts, subsequent placement of a stone extraction balloon IMPRESSION: Intraoperative imaging, as described
--- NOTE | 2018-04-26 21:26 | General Progress Note ---
Assessment/Plan Problem List: (1) ARF (acute renal failure) ICD Codes: N17.9 - Acute kidney failure, unspecified SNOMED: 64745872 Qualifiers: Qualified Codes: N17.9 - Acute kidney failure, unspecified (2) Hypovolemic shock ICD Codes: R57.1 - Hypovolemic shock SNOMED: 94997639 (3) JONA (acute kidney injury) ICD Codes: N17.9 - Acute kidney failure, unspecified SNOMED: 92327560 Status: progressing Assessment/Plan arf resolved gallstones in cpb abdominal pain is improving Subjective ROS Limited/Unobtainable: Yes Allergies: Coded Allergies: No Known Allergies (Unverified , 04/21/18) Subjective general pain Objective Last 24 Hour Vital Signs Date Time Temp Pulse Resp B/P (MAP) Pulse Ox O2 Delivery O2 Flow Rate FiO2 04/26/18 20:00 97.2 57 19 138/66 (90) 100 04/26/18 17:40 61 132/62 (85) 04/26/18 16:13 170/82 04/26/18 16:00 98.0 63 18 170/82 (111) 99 04/26/18 13:50 98.0 61 16 166/83 100 Nasal Cannula 3 04/26/18 13:37 61 15 150/82 99 Nasal Cannula 3 04/26/18 13:32 54 14 104/59 99 Nasal Cannula 3 04/26/18 13:31 56 16 100 04/26/18 13:27 97.2 54 14 104/61 99 Simple Mask 6 04/26/18 12:00 156/87 (110) 04/26/18 11:44 98.0 66 17 173/81 (111) 98 04/26/18 09:00 Room Air 04/26/18 08:39 166/76 04/26/18 08:00 97.9 67 18 166/76 (106) 100 04/26/18 04:00 98.7 64 17 139/67 (91) 98 04/25/18 23:47 98.0 64 17 133/70 (91) 99 Intake and Output 04/25/18 04/26/18 19:00 07:00 Intake Total 1640 ml 637.5 ml Output Total 900 ml Balance 1640 ml -262.5 ml Intake Oral 1090 ml IV Total 550 ml 637.5 ml Output Urine Total 900 ml # Bowel Movements 1 Laboratory Tests 04/26/18 07:15: Prothrombin Time 13.1H, Prothromb Time International Ratio 1.3H, Activated Partial Thromboplast Time 43H, Sodium Level 141, Potassium Level 3.6, Chloride Level 114H, Carbon Dioxide Level 16L, Anion Gap 11, Blood Urea Nitrogen 8, Creatinine 1.3, Estimat Glomerular Filtration Rate 55.9, Glucose Level 142H, Calcium Level 7.7L 04/26/18 15:45: White Blood Count 7.6, Red Blood Count 3.10L, Hemoglobin 9.7L, Hematocrit 28.7L , Mean Corpuscular Volume 93, Mean Corpuscular Hemoglobin 31.4H, Mean Corpuscular Hemoglobin Concent 33.9, Red Cell Distribution Width 13.4, Platelet Count 172, Mean Platelet Volume 6.9, Neutrophils (%) (Auto) 71.8, Lymphocytes (% ) (Auto) 12.3L, Monocytes (%) (Auto) 6.8, Eosinophils (%) (Auto) 7.9H, Basophils (%) (Auto) 1.2 Height (Feet): 5 Height (Inches): 5.00 Weight (Pounds): 140 Cardiovascular: normal rate Respiratory/Chest: lungs clear Abdomen: soft Oksana Casey MD Apr 26, 2018 21:26
--- NOTE | 2018-04-26 22:52 | General Progress Note ---
Assessment/Plan Assessment/Plan Assessment and Recs: # Anemia of chronic disease - likely multifactorial and h/h has been relatively stable --> Anemia workup has been ordered --> No evidence of hemolysis is noted, peripheral smear has been reviewed. --> Hgb goal >7. Transfuse prn. --> Epogen or iron at this time is not particularly indicated # Thrombocytopenia likely due to liver disease/cirrhosis --> Medications have been reviewed --> if the plt count less than 10k, transfuse immediately. If less than 20k and febrile, transfuse --> If less than 50k and bleeding, transfuse. If neurosurgical bleed, transfuse as well # Sepsis - continue antibiotics with ID service, appreciate recs --> likely due to gallstone pancreatitis # Dehydration --> per renal # Choledocholithiasis with acute cholecystitis --> ERCP to be scheduled 04/26 # Acute cholecystitis --> bowel regime, ppi --> surg following The timing of this note does not necessarily reflect the time of the patient was seen. Greatly appreciate consultation! Subjective Constitutional: Denies: no symptoms, chills, diaphoresis, fever, malaise, weakness, other HEENT: Denies: no symptoms, eye pain, blurred vision, tearing, double vision, ear pain, ear discharge, nose pain, nose congestion, throat pain, throat swelling, mouth pain, mouth swelling, other Cardiovascular: Denies: no symptoms, chest pain, edema, irregular heart rate, lightheadedness, palpitations, syncope, other Respiratory: Denies: no symptoms, cough, orthopnea, shortness of breath, SOB with excertion, SOB at rest, sputum, stridor, wheezing, other Gastrointestinal/Abdominal: Denies: no symptoms, abdomen distended, abdominal pain, black stools, tarry stools, blood in stool, constipated, diarrhea, difficulty swallowing, nausea, poor appetite, poor fluid intake, rectal bleeding , vomiting, other Genitourinary: Denies: no symptoms, burning, discharge, frequency, flank pain, hematuria, incontinence, pain, urgency, other Neurologic/Psychiatric: Denies: no symptoms, anxiety, depressed, emotional problems, headache, numbness, paresthesia, pre-existing deficit, seizure, tingling, tremors, weakness, other Endocrine: Denies: no symptoms, excessive sweating, flushing, intolerance to cold, intolerance to heat, increased hunger, increased thirst, increased urine, unexplained weight gain, unexplained weight loss, other Hematologic/Lymphatic: Denies: no symptoms, anemia, easy bleeding, easy bruising, other Allergies: Coded Allergies: No Known Allergies (Unverified , 04/21/18) Subjective 04/26: seen by bedside, awake,comfortable, no acute events, pending ERCP today Objective Last 24 Hour Vital Signs Date Time Temp Pulse Resp B/P (MAP) Pulse Ox O2 Delivery O2 Flow Rate FiO2 04/26/18 21:00 Room Air 04/26/18 20:00 97.2 57 19 138/66 (90) 100 04/26/18 17:40 61 132/62 (85) 04/26/18 16:13 170/82 04/26/18 16:00 98.0 63 18 170/82 (111) 99 04/26/18 13:50 98.0 61 16 166/83 100 Nasal Cannula 3 04/26/18 13:37 61 15 150/82 99 Nasal Cannula 3 04/26/18 13:32 54 14 104/59 99 Nasal Cannula 3 04/26/18 13:31 56 16 100 04/26/18 13:27 97.2 54 14 104/61 99 Simple Mask 6 04/26/18 12:00 156/87 (110) 04/26/18 11:44 98.0 66 17 173/81 (111) 98 04/26/18 09:00 Room Air 04/26/18 08:39 166/76 04/26/18 08:00 97.9 67 18 166/76 (106) 100 04/26/18 04:00 98.7 64 17 139/67 (91) 98 04/25/18 23:47 98.0 64 17 133/70 (91) 99 Intake and Output 04/25/18 04/26/18 19:00 07:00 Intake Total 1640 ml 637.5 ml Output Total 900 ml Balance 1640 ml -262.5 ml Intake Oral 1090 ml IV Total 550 ml 637.5 ml Output Urine Total 900 ml # Bowel Movements 1 Laboratory Tests 04/26/18 07:15: Prothrombin Time 13.1H, Prothromb Time International Ratio 1.3H, Activated Partial Thromboplast Time 43H, Sodium Level 141, Potassium Level 3.6, Chloride Level 114H, Carbon Dioxide Level 16L, Anion Gap 11, Blood Urea Nitrogen 8, Creatinine 1.3, Estimat Glomerular Filtration Rate 55.9, Glucose Level 142H, Calcium Level 7.7L 04/26/18 15:45: White Blood Count 7.6, Red Blood Count 3.10L, Hemoglobin 9.7L, Hematocrit 28.7L , Mean Corpuscular Volume 93, Mean Corpuscular Hemoglobin 31.4H, Mean Corpuscular Hemoglobin Concent 33.9, Red Cell Distribution Width 13.4, Platelet Count 172, Mean Platelet Volume 6.9, Neutrophils (%) (Auto) 71.8, Lymphocytes (% ) (Auto) 12.3L, Monocytes (%) (Auto) 6.8, Eosinophils (%) (Auto) 7.9H, Basophils (%) (Auto) 1.2 Height (Feet): 5 Height (Inches): 5.00 Weight (Pounds): 140 Objective General Appearance: well appearing, no apparent distress, alert, thin Respiratory: normal breath sounds, no respiratory distress Cardiovascular: normal rate Gastrointestinal: normal inspection, non tender, soft Genitourinary: deferred Musculoskeletal: normal inspection, back normal Neurologic: normal inspection, alert, oriented x3, responsive Guero Hernandez MD Apr 26, 2018 22:52
--- NOTE | 2018-04-26 23:26 | Cardiology Progress Note ---
Assessment/Plan Assessment/Plan 1. Septic shock, continue hydration. Echo reveals normal LV systolic and diastolic function. 2. JONA, creatinine stable at 1.3. 3. History of diabetes mellitus. 4. History of hypertension. 5. Gallstone pancreatitis. Subjective Subjective No cardiac events noted. Objective Last 24 Hour Vital Signs Date Time Temp Pulse Resp B/P (MAP) Pulse Ox O2 Delivery O2 Flow Rate FiO2 04/26/18 21:00 Room Air 04/26/18 20:00 97.2 57 19 138/66 (90) 100 04/26/18 17:40 61 132/62 (85) 04/26/18 16:13 170/82 04/26/18 16:00 98.0 63 18 170/82 (111) 99 04/26/18 13:50 98.0 61 16 166/83 100 Nasal Cannula 3 04/26/18 13:37 61 15 150/82 99 Nasal Cannula 3 04/26/18 13:32 54 14 104/59 99 Nasal Cannula 3 04/26/18 13:31 56 16 100 04/26/18 13:27 97.2 54 14 104/61 99 Simple Mask 6 04/26/18 12:00 156/87 (110) 04/26/18 11:44 98.0 66 17 173/81 (111) 98 04/26/18 09:00 Room Air 04/26/18 08:39 166/76 04/26/18 08:00 97.9 67 18 166/76 (106) 100 04/26/18 04:00 98.7 64 17 139/67 (91) 98 04/25/18 23:47 98.0 64 17 133/70 (91) 99 Intake and Output 04/25/18 04/26/18 19:00 07:00 Intake Total 1640 ml 637.5 ml Output Total 900 ml Balance 1640 ml -262.5 ml Intake Oral 1090 ml IV Total 550 ml 637.5 ml Output Urine Total 900 ml # Bowel Movements 1 2D Echo: LVEF 55%, RVSP 42 mmHg Laboratory Tests Test 04/26/18 07:15 04/26/18 15:45 Prothrombin Time 13.1 SEC (9.30-11.50) H Prothromb Time International Ratio 1.3 (0.9-1.1) H Activated Partial Thromboplast Time 43 SEC (23-33) H Sodium Level 141 MMOL/L (136-145) Potassium Level 3.6 MMOL/L (3.5-5.1) Chloride Level 114 MMOL/L (98-107) H Carbon Dioxide Level 16 MMOL/L (21-32) L Anion Gap 11 mmol/L (5-15) Blood Urea Nitrogen 8 mg/dL (7-18) Creatinine 1.3 MG/DL (0.55-1.30) Estimat Glomerular Filtration Rate 55.9 mL/min (>60) Glucose Level 142 MG/DL (74-106) H Calcium Level 7.7 MG/DL (8.5-10.1) L White Blood Count 7.6 K/UL (4.8-10.8) Red Blood Count 3.10 M/UL (4.70-6.10) L Hemoglobin 9.7 G/DL (14.2-18.0) L Hematocrit 28.7 % (42.0-52.0) L Mean Corpuscular Volume 93 FL (80-99) Mean Corpuscular Hemoglobin 31.4 PG (27.0-31.0) H Mean Corpuscular Hemoglobin Concent 33.9 G/DL (32.0-36.0) Red Cell Distribution Width 13.4 % (11.6-14.8) Platelet Count 172 K/UL (150-450) Mean Platelet Volume 6.9 FL (6.5-10.1) Neutrophils (%) (Auto) 71.8 % (45.0-75.0) Lymphocytes (%) (Auto) 12.3 % (20.0-45.0) L Monocytes (%) (Auto) 6.8 % (1.0-10.0) Eosinophils (%) (Auto) 7.9 % (0.0-3.0) H Basophils (%) (Auto) 1.2 % (0.0-2.0) Objective HEENT: Atraumatic, normocephalic. ENT, pupils are equal, round, and reactive to light and accommodation. Extraocular muscles intact. NECK: JVP less than 5 cm. No carotid bruit. Carotid upstrokes 2+ bilaterally. CARDIOVASCULAR SYSTEM: Normal S1, S2. Regular rate and rhythm. No murmurs, gallops, or rubs. PMI is at fourth intercostal space at midclavicular line. LUNGS: Clear to auscultation bilaterally. ABDOMEN: Soft, nontender, and nondistended. No hepatosplenomegaly. Positive bowel sounds. EXTREMITIES: No evidence of edema, clubbing, or cyanosis. Alvaro Hargrove MD Apr 26, 2018 23:26
[2018-04-27] VITALS (7 sets, daily range): BP systolic 134–178; BP diastolic 68–87
[2018-04-27] MEDS: D5 1/2NS 1,000 ML IV SCH (04:17)
[2018-04-27] MEDS: HydrALAZINE 25mg tab ORAL PRN ×4 (04:26→23:33)
[2018-04-27] MEDS: Piperacillin/Tazobactam 3.375 GM in D5W 110 ML IVPB SCH ×3 (06:35→22:09)
[2018-04-27] MEDS: NovoLOG Insulin Flexpen SUBQ SCH ×4 (06:44→22:04)
[2018-04-27 07:16] LABS: ALANINE AMINOTRANSFERASE 27 U/L (12-78); ALBUMIN 2.3 G/DL (3.4-5.0); ALBUMIN/GLOBULIN RATIO 0.7 (1.0-2.7); ALKALINE PHOSPHATASE 151 U/L (46-116); ANION GAP 10 mmol/L (5-15); ASPARTATE AMINO TRANSFERASE 20 U/L (15-37); BILIRUBIN,TOTAL 0.6 MG/DL (0.2-1.0); BLOOD UREA NITROGEN 6 mg/dL (7-18); CALCIUM 7.5 MG/DL (8.5-10.1); CARBON DIOXIDE 19 MMOL/L (21-32); CHLORIDE 112 MMOL/L (98-107); CREATININE 1.3 MG/DL (0.55-1.30); POTASSIUM 3.1 MMOL/L (3.5-5.1); SODIUM 141 MMOL/L (136-145)
[2018-04-27 07:35] LABS: AMYLASE 57 U/L (25-115)
[2018-04-27 07:45] LABS: BASOPHILS % (AUTO) 0.8 % (0.0-2.0); EOSINOPHILS % (AUTO) 9.5 % (0.0-3.0); HEMATOCRIT 27.8 % (42.0-52.0); HEMOGLOBIN 9.3 G/DL (14.2-18.0); LYMPHOCYTES % (AUTO) 14.2 % (20.0-45.0); MEAN CORPUSCULAR VOLUME 92 FL (80-99); MONOCYTES % (AUTO) 5.8 % (1.0-10.0); NEUTROPHILS % (AUTO) 69.7 % (45.0-75.0); PLATELET COUNT 161 K/UL (150-450); RED BLOOD COUNT 3.01 M/UL (4.70-6.10); RED CELL DISTRIBUTION WIDTH 13.5 % (11.6-14.8); WHITE BLOOD COUNT 7.8 K/UL (4.8-10.8)
[2018-04-27] MEDS: Pantoprazole Inj IVP SCH (08:55)
[2018-04-27] MEDS: Heparin 5000 units/ml inj SUBQ SCH ×2 (08:55→22:07)
[2018-04-27] MEDS: Lisinopril 2.5mg tab ORAL SCH (08:56)
--- NOTE | 2018-04-27 12:08 | Nephrology Progress Note ---
Assessment/Plan Problem List: (1) JONA (acute kidney injury) Assessment: Cr lowering (2) Gallstone pancreatitis (3) Anemia (4) Dehydration (5) Hypovolemic shock (6) Diabetes Assessment: with elevated HgbA1c Plan K supp BP meds- consider transfusion as needed on PO Monitor renal parameters Monitor CPK Antibiotics per ID avoid nephrotoxics per GI DC Planning? Subjective ROS Limited/Unobtainable: No Constitutional: Reports: malaise Objective Objective Last 24 Hour Vital Signs Date Time Temp Pulse Resp B/P (MAP) Pulse Ox O2 Delivery O2 Flow Rate FiO2 04/27/18 09:00 Room Air 04/27/18 08:56 156/73 04/27/18 08:00 98.4 68 18 156/73 (100) 99 04/27/18 04:26 168/73 04/27/18 04:00 98.8 64 18 168/73 (104) 98 04/27/18 00:00 99.3 61 18 134/68 (90) 99 04/26/18 21:00 Room Air 04/26/18 20:00 97.2 57 19 138/66 (90) 100 04/26/18 17:40 61 132/62 (85) 04/26/18 16:13 170/82 04/26/18 16:00 98.0 63 18 170/82 (111) 99 04/26/18 13:50 98.0 61 16 166/83 100 Nasal Cannula 3 04/26/18 13:37 61 15 150/82 99 Nasal Cannula 3 04/26/18 13:32 54 14 104/59 99 Nasal Cannula 3 04/26/18 13:31 56 16 100 04/26/18 13:27 97.2 54 14 104/61 99 Simple Mask 6 Intake and Output 04/26/18 04/27/18 18:59 06:59 Intake Total 972.5 ml 900.0 ml Output Total 975 ml Balance -2.5 ml 900.0 ml Intake Oral 490 ml 240 ml IV Total 482.5 ml 660.0 ml Output Urine Total 975 ml Estimated Blood Loss 0 ml # Voids 2 3 # Bowel Movements 1 Laboratory Tests 04/26/18 15:45: White Blood Count 7.6, Red Blood Count 3.10L, Hemoglobin 9.7L, Hematocrit 28.7L , Mean Corpuscular Volume 93, Mean Corpuscular Hemoglobin 31.4H, Mean Corpuscular Hemoglobin Concent 33.9, Red Cell Distribution Width 13.4, Platelet Count 172, Mean Platelet Volume 6.9, Neutrophils (%) (Auto) 71.8, Lymphocytes (% ) (Auto) 12.3L, Monocytes (%) (Auto) 6.8, Eosinophils (%) (Auto) 7.9H, Basophils (%) (Auto) 1.2 04/27/18 05:15: White Blood Count 7.8, Red Blood Count 3.01L, Hemoglobin 9.3L, Hematocrit 27.8L , Mean Corpuscular Volume 92, Mean Corpuscular Hemoglobin 31.1H, Mean Corpuscular Hemoglobin Concent 33.6, Red Cell Distribution Width 13.5, Platelet Count 161, Mean Platelet Volume 7.8, Neutrophils (%) (Auto) 69.7, Lymphocytes (% ) (Auto) 14.2L, Monocytes (%) (Auto) 5.8, Eosinophils (%) (Auto) 9.5H, Basophils (%) (Auto) 0.8, Sodium Level 141, Potassium Level 3.1L, Chloride Level 112H, Carbon Dioxide Level 19L, Anion Gap 10, Blood Urea Nitrogen 6L, Creatinine 1.3, Estimat Glomerular Filtration Rate 55.9, Glucose Level 130H, Calcium Level 7.5L, Total Bilirubin 0.6, Aspartate Amino Transf (AST/SGOT) 20, Alanine Aminotransferase (ALT/SGPT) 27, Alkaline Phosphatase 151H, Total Protein 5.5L, Albumin 2.3L, Globulin 3.2, Albumin/Globulin Ratio 0.7L, Amylase Level 57, Lipase 366 Height (Feet): 5 Height (Inches): 5.00 Weight (Pounds): 140 General Appearance: no apparent distress Cardiovascular: normal rate Respiratory/Chest: decreased breath sounds Abdomen: soft Objective no change Orlin Berrios MD Apr 27, 2018 12:08
--- NOTE | 2018-04-27 12:46 | Infectious Diseases Prog Note ---
Assessment/Plan Assessment/Plan A; 1. Sepsis resolved 2.Cholelithiasis/Choledocholithiasis s/p ERCP 3. Leukocytosis. resolved 4. acute renal failure, improving 5. Elevated transaminase. 6. Diabetes mellitus. 7. Hypertension. 8. Lactic acidosis. 9. Pancreatitis 10. Diarrhea, negative C. difficile test P: Continue Zosyn Subjective ROS Limited/Unobtainable: No Constitutional: Reports: no symptoms Respiratory: Reports: no symptoms Cardiovascular: Reports: no symptoms Gastrointestinal/Abdominal: Reports: no symptoms Allergies: Coded Allergies: No Known Allergies (Unverified , 04/21/18) Objective Vital Signs Last 24 Hour Vital Signs Date Time Temp Pulse Resp B/P (MAP) Pulse Ox O2 Delivery O2 Flow Rate FiO2 04/27/18 12:21 165/86 04/27/18 12:00 98.4 72 18 165/86 (112) 99 04/27/18 09:00 Room Air 04/27/18 08:56 156/73 04/27/18 08:00 98.4 68 18 156/73 (100) 99 04/27/18 04:26 168/73 04/27/18 04:00 98.8 64 18 168/73 (104) 98 04/27/18 00:00 99.3 61 18 134/68 (90) 99 04/26/18 21:00 Room Air 04/26/18 20:00 97.2 57 19 138/66 (90) 100 04/26/18 17:40 61 132/62 (85) 04/26/18 16:13 170/82 04/26/18 16:00 98.0 63 18 170/82 (111) 99 04/26/18 13:50 98.0 61 16 166/83 100 Nasal Cannula 3 04/26/18 13:37 61 15 150/82 99 Nasal Cannula 3 04/26/18 13:32 54 14 104/59 99 Nasal Cannula 3 04/26/18 13:31 56 16 100 04/26/18 13:27 97.2 54 14 104/61 99 Simple Mask 6 Height (Feet): 5 Height (Inches): 5.00 Weight (Pounds): 140 HEENT: mucous membranes moist Respiratory/Chest: lungs clear Cardiovascular: normal rate Abdomen: soft, non tender Extremities: no edema Neurologic/Psychiatric: alert, responsive Laboratory Tests Test 04/26/18 15:45 04/27/18 05:15 White Blood Count 7.6 K/UL (4.8-10.8) 7.8 K/UL (4.8-10.8) Red Blood Count 3.10 M/UL (4.70-6.10) L 3.01 M/UL (4.70-6.10) L Hemoglobin 9.7 G/DL (14.2-18.0) L 9.3 G/DL (14.2-18.0) L Hematocrit 28.7 % (42.0-52.0) L 27.8 % (42.0-52.0) L Mean Corpuscular Volume 93 FL (80-99) 92 FL (80-99) Mean Corpuscular Hemoglobin 31.4 PG (27.0-31.0) H 31.1 PG (27.0-31.0) H Mean Corpuscular Hemoglobin Concent 33.9 G/DL (32.0-36.0) 33.6 G/DL (32.0-36.0) Red Cell Distribution Width 13.4 % (11.6-14.8) 13.5 % (11.6-14.8) Platelet Count 172 K/UL (150-450) 161 K/UL (150-450) Mean Platelet Volume 6.9 FL (6.5-10.1) 7.8 FL (6.5-10.1) Neutrophils (%) (Auto) 71.8 % (45.0-75.0) 69.7 % (45.0-75.0) Lymphocytes (%) (Auto) 12.3 % (20.0-45.0) L 14.2 % (20.0-45.0) L Monocytes (%) (Auto) 6.8 % (1.0-10.0) 5.8 % (1.0-10.0) Eosinophils (%) (Auto) 7.9 % (0.0-3.0) H 9.5 % (0.0-3.0) H Basophils (%) (Auto) 1.2 % (0.0-2.0) 0.8 % (0.0-2.0) Sodium Level 141 MMOL/L (136-145) Potassium Level 3.1 MMOL/L (3.5-5.1) L Chloride Level 112 MMOL/L (98-107) H Carbon Dioxide Level 19 MMOL/L (21-32) L Anion Gap 10 mmol/L (5-15) Blood Urea Nitrogen 6 mg/dL (7-18) L Creatinine 1.3 MG/DL (0.55-1.30) Estimat Glomerular Filtration Rate 55.9 mL/min (>60) Glucose Level 130 MG/DL (74-106) H Calcium Level 7.5 MG/DL (8.5-10.1) L Total Bilirubin 0.6 MG/DL (0.2-1.0) Aspartate Amino Transf (AST/SGOT) 20 U/L (15-37) Alanine Aminotransferase (ALT/SGPT) 27 U/L (12-78) Alkaline Phosphatase 151 U/L (46-116) H Total Protein 5.5 G/DL (6.4-8.2) L Albumin 2.3 G/DL (3.4-5.0) L Globulin 3.2 g/dL Albumin/Globulin Ratio 0.7 (1.0-2.7) L Amylase Level 57 U/L (25-115) Lipase 366 U/L (73-393) Current Medications Medications (Trade) Dose Ordered Sig/Jamal Route PRN Reason Start Time Stop Time Status Last Admin Dose Admin Acetaminophen (Tylenol) 500 mg Q4H PRN ORAL Mild Pain/Temp > 100.5 04/24/18 14:00 05/23/18 13:59 Dextrose (Dextrose 50%) 25 ml Q30M PRN IV Hypoglycemia 04/24/18 14:00 05/21/18 10:59 Dextrose (Dextrose 50%) 50 ml Q30M PRN IV Hypoglycemia 04/24/18 14:00 05/21/18 10:59 Folic Acid (Folate) 3 mg DAILY ORAL 04/25/18 09:00 05/22/18 17:14 04/27/18 08:55 Heparin Sodium (Porcine) (Heparin 5000 units/ml) 5,000 units EVERY 12 HOURS SUBQ 04/24/18 21:00 05/23/18 20:59 04/27/18 08:55 Hydralazine HCl (Apresoline) 25 mg Q4H PRN ORAL bp over 160 syst 04/26/18 13:15 05/26/18 13:14 04/27/18 12:21 Insulin Aspart (NovoLOG) BEFORE MEALS AND HS SUBQ 04/24/18 16:30 05/21/18 11:29 04/27/18 12:21 Lisinopril (Zestril) 5 mg DAILY ORAL 04/25/18 09:00 05/25/18 08:59 04/27/18 08:56 Pantoprazole (Protonix) 40 mg DAILY IVP 04/25/18 09:00 05/22/18 08:59 04/27/18 08:55 Piperacillin Sod/ Tazobactam Sod 3.375 gm/Dextrose 110 ml @ 27.5 mls/hr EVERY 8 HOURS IVPB 04/24/18 14:00 04/29/18 13:59 04/27/18 06:35 Potassium Chloride (K-Dur) 40 meq TWICE A DAY ORAL 04/27/18 18:00 05/27/18 17:59 Thai Hale MD Apr 27, 2018 12:46
--- NOTE | 2018-04-27 14:08 | Surgery Progress Note ---
Surgery Progress Note Subjective Additional Comments abdominal pain resolved. labs okay. s/p ercp with stone extraction. pancreatitis resolving Objective Last 24 Hour Vital Signs Date Time Temp Pulse Resp B/P (MAP) Pulse Ox O2 Delivery O2 Flow Rate FiO2 04/27/18 12:21 165/86 04/27/18 12:00 98.4 72 18 165/86 (112) 99 04/27/18 09:00 Room Air 04/27/18 08:56 156/73 04/27/18 08:00 98.4 68 18 156/73 (100) 99 04/27/18 04:26 168/73 04/27/18 04:00 98.8 64 18 168/73 (104) 98 04/27/18 00:00 99.3 61 18 134/68 (90) 99 04/26/18 21:00 Room Air 04/26/18 20:00 97.2 57 19 138/66 (90) 100 04/26/18 17:40 61 132/62 (85) 04/26/18 16:13 170/82 04/26/18 16:00 98.0 63 18 170/82 (111) 99 I&O Intake and Output 04/26/18 04/27/18 18:59 06:59 Intake Total 972.5 ml 900.0 ml Output Total 975 ml Balance -2.5 ml 900.0 ml Intake Oral 490 ml 240 ml IV Total 482.5 ml 660.0 ml Output Urine Total 975 ml Estimated Blood Loss 0 ml # Voids 2 3 # Bowel Movements 1 Drains: none Cardiovascular: RSR Respiratory: clear Abdomen: soft, flat, non-tender, present bowel sounds, non-distended Extremities: no tenderness, no cyanosis Laboratory Tests Test 04/26/18 15:45 04/27/18 05:15 White Blood Count 7.6 K/UL (4.8-10.8) 7.8 K/UL (4.8-10.8) Red Blood Count 3.10 M/UL (4.70-6.10) L 3.01 M/UL (4.70-6.10) L Hemoglobin 9.7 G/DL (14.2-18.0) L 9.3 G/DL (14.2-18.0) L Hematocrit 28.7 % (42.0-52.0) L 27.8 % (42.0-52.0) L Mean Corpuscular Volume 93 FL (80-99) 92 FL (80-99) Mean Corpuscular Hemoglobin 31.4 PG (27.0-31.0) H 31.1 PG (27.0-31.0) H Mean Corpuscular Hemoglobin Concent 33.9 G/DL (32.0-36.0) 33.6 G/DL (32.0-36.0) Red Cell Distribution Width 13.4 % (11.6-14.8) 13.5 % (11.6-14.8) Platelet Count 172 K/UL (150-450) 161 K/UL (150-450) Mean Platelet Volume 6.9 FL (6.5-10.1) 7.8 FL (6.5-10.1) Neutrophils (%) (Auto) 71.8 % (45.0-75.0) 69.7 % (45.0-75.0) Lymphocytes (%) (Auto) 12.3 % (20.0-45.0) L 14.2 % (20.0-45.0) L Monocytes (%) (Auto) 6.8 % (1.0-10.0) 5.8 % (1.0-10.0) Eosinophils (%) (Auto) 7.9 % (0.0-3.0) H 9.5 % (0.0-3.0) H Basophils (%) (Auto) 1.2 % (0.0-2.0) 0.8 % (0.0-2.0) Sodium Level 141 MMOL/L (136-145) Potassium Level 3.1 MMOL/L (3.5-5.1) L Chloride Level 112 MMOL/L (98-107) H Carbon Dioxide Level 19 MMOL/L (21-32) L Anion Gap 10 mmol/L (5-15) Blood Urea Nitrogen 6 mg/dL (7-18) L Creatinine 1.3 MG/DL (0.55-1.30) Estimat Glomerular Filtration Rate 55.9 mL/min (>60) Glucose Level 130 MG/DL (74-106) H Calcium Level 7.5 MG/DL (8.5-10.1) L Total Bilirubin 0.6 MG/DL (0.2-1.0) Aspartate Amino Transf (AST/SGOT) 20 U/L (15-37) Alanine Aminotransferase (ALT/SGPT) 27 U/L (12-78) Alkaline Phosphatase 151 U/L (46-116) H Total Protein 5.5 G/DL (6.4-8.2) L Albumin 2.3 G/DL (3.4-5.0) L Globulin 3.2 g/dL Albumin/Globulin Ratio 0.7 (1.0-2.7) L Amylase Level 57 U/L (25-115) Lipase 366 U/L (73-393) Plan Problems: (1) Acute cholecystitis Assessment & Plan: US with Distended urinary bladder. Torres catheter not visualized but present. Clinical evaluation is needed. Recommend removal of the Torres catheter and replacement. Mild pelvocaliectasis noted which is likely on the basis of the distended bladder. Suspected choledocholithiasis with the one or more stones in the distal common bile duct. Moderate biliary ductal dilatation demonstrated. Cholelithiasis with distention of the gallbladder and wall thickening. Leukocytosis Hypotensive shock Abnormal LFT's. Possible choledocholithiasis MRI reviewed. likely gallstone pancreatitis with choledocholithiasis. labs improving jennifer/lip improved s/p ercp with stone extration recovering. -diet as tolerated -Abx as per ID -no acute surgical intervention planned -elective cholecystectomy in 6 weeks. had significant acute pancreatitis with sepsis and would benefit from recovery for decreased inflammation prior to cholecystectomy -d/c planning -thank you for this consult. will follow with recs. (2) Hypovolemic shock Martin Sterling Apr 27, 2018 14:08
--- NOTE | 2018-04-27 15:04 | GI Progress Note ---
Assessment/Plan Problems: (1) Diabetes ICD Codes: E11.9 - Type 2 diabetes mellitus without complications SNOMED: 82986287 (2) Anemia ICD Codes: D64.9 - Anemia, unspecified SNOMED: 007247944 (3) Choledocholithiasis with acute cholecystitis ICD Codes: K80.42 - Calculus of bile duct with acute cholecystitis without obstruction SNOMED: 96607410 (4) Dehydration ICD Codes: E86.0 - Dehydration SNOMED: 54091694 (5) Gall bladder stones ICD Codes: K80.20 - Calculus of gallbladder without cholecystitis without obstruction SNOMED: 071844512 Status: stable Status Narrative Discussed with Dr. Lambert Assessment/Plan SUMMARY OF FINDINGS: 1. Choledocholithiasis. 2. Status post ERCP, sphincterotomy, stone removal. RECOMMENDATIONS: 1. Follow labs. 2. Start diet and advance as tolerated. 3. Follow up with surgery regarding possibility of cholecystectomy. okay for DC per GI standpoint The patient was seen and examined at bedside and all new and available data was reviewed in the patients chart. I agree with the above findings, impression and plan. (Patient seen earlier today. Signature stamp does not reflect patient encounter time.). - León Lambert MD Subjective Gastrointestinal/Abdominal: Reports: no symptoms Objective Last 24 Hour Vital Signs Date Time Temp Pulse Resp B/P (MAP) Pulse Ox O2 Delivery O2 Flow Rate FiO2 04/27/18 12:21 165/86 04/27/18 12:00 98.4 72 18 165/86 (112) 99 04/27/18 09:00 Room Air 04/27/18 08:56 156/73 04/27/18 08:00 98.4 68 18 156/73 (100) 99 04/27/18 04:26 168/73 04/27/18 04:00 98.8 64 18 168/73 (104) 98 04/27/18 00:00 99.3 61 18 134/68 (90) 99 04/26/18 21:00 Room Air 04/26/18 20:00 97.2 57 19 138/66 (90) 100 04/26/18 17:40 61 132/62 (85) 04/26/18 16:13 170/82 04/26/18 16:00 98.0 63 18 170/82 (111) 99 Intake and Output 04/26/18 04/27/18 18:59 06:59 Intake Total 972.5 ml 900.0 ml Output Total 975 ml Balance -2.5 ml 900.0 ml Intake Oral 490 ml 240 ml IV Total 482.5 ml 660.0 ml Output Urine Total 975 ml Estimated Blood Loss 0 ml # Voids 2 3 # Bowel Movements 1 Laboratory Tests Test 04/26/18 15:45 04/27/18 05:15 White Blood Count 7.6 K/UL (4.8-10.8) 7.8 K/UL (4.8-10.8) Red Blood Count 3.10 M/UL (4.70-6.10) L 3.01 M/UL (4.70-6.10) L Hemoglobin 9.7 G/DL (14.2-18.0) L 9.3 G/DL (14.2-18.0) L Hematocrit 28.7 % (42.0-52.0) L 27.8 % (42.0-52.0) L Mean Corpuscular Volume 93 FL (80-99) 92 FL (80-99) Mean Corpuscular Hemoglobin 31.4 PG (27.0-31.0) H 31.1 PG (27.0-31.0) H Mean Corpuscular Hemoglobin Concent 33.9 G/DL (32.0-36.0) 33.6 G/DL (32.0-36.0) Red Cell Distribution Width 13.4 % (11.6-14.8) 13.5 % (11.6-14.8) Platelet Count 172 K/UL (150-450) 161 K/UL (150-450) Mean Platelet Volume 6.9 FL (6.5-10.1) 7.8 FL (6.5-10.1) Neutrophils (%) (Auto) 71.8 % (45.0-75.0) 69.7 % (45.0-75.0) Lymphocytes (%) (Auto) 12.3 % (20.0-45.0) L 14.2 % (20.0-45.0) L Monocytes (%) (Auto) 6.8 % (1.0-10.0) 5.8 % (1.0-10.0) Eosinophils (%) (Auto) 7.9 % (0.0-3.0) H 9.5 % (0.0-3.0) H Basophils (%) (Auto) 1.2 % (0.0-2.0) 0.8 % (0.0-2.0) Sodium Level 141 MMOL/L (136-145) Potassium Level 3.1 MMOL/L (3.5-5.1) L Chloride Level 112 MMOL/L (98-107) H Carbon Dioxide Level 19 MMOL/L (21-32) L Anion Gap 10 mmol/L (5-15) Blood Urea Nitrogen 6 mg/dL (7-18) L Creatinine 1.3 MG/DL (0.55-1.30) Estimat Glomerular Filtration Rate 55.9 mL/min (>60) Glucose Level 130 MG/DL (74-106) H Calcium Level 7.5 MG/DL (8.5-10.1) L Total Bilirubin 0.6 MG/DL (0.2-1.0) Aspartate Amino Transf (AST/SGOT) 20 U/L (15-37) Alanine Aminotransferase (ALT/SGPT) 27 U/L (12-78) Alkaline Phosphatase 151 U/L (46-116) H Total Protein 5.5 G/DL (6.4-8.2) L Albumin 2.3 G/DL (3.4-5.0) L Globulin 3.2 g/dL Albumin/Globulin Ratio 0.7 (1.0-2.7) L Amylase Level 57 U/L (25-115) Lipase 366 U/L (73-393) Height (Feet): 5 Height (Inches): 5.00 Weight (Pounds): 140 General Appearance: WD/WN, no apparent distress, alert Cardiovascular: normal rate Respiratory/Chest: normal breath sounds, no respiratory distress Abdominal Exam: normal bowel sounds, non tender, soft Extremities: normal range of motion, non-tender Lori Douglass NP Apr 27, 2018 15:04
--- NOTE | 2018-04-27 19:06 | General Progress Note ---
Assessment/Plan Assessment/Plan Assessment and Recs: # Anemia of chronic disease - likely multifactorial and h/h has been relatively stable --> Anemia workup has been ordered --> No evidence of hemolysis is noted, peripheral smear has been reviewed. --> Hgb goal >7. Transfuse prn. --> Epogen or iron at this time is not particularly indicated # Thrombocytopenia likely due to liver disease/cirrhosis --> Medications have been reviewed --> if the plt count less than 10k, transfuse immediately. If less than 20k and febrile, transfuse --> If less than 50k and bleeding, transfuse. If neurosurgical bleed, transfuse as well # Sepsis - continue antibiotics with ID service, appreciate recs --> likely due to gallstone pancreatitis # Dehydration --> per renal # Choledocholithiasis with acute cholecystitis --> ERCP to be scheduled 04/26 # Acute cholecystitis --> bowel regime, ppi --> surg following The timing of this note does not necessarily reflect the time of the patient was seen. Greatly appreciate consultation! Subjective ROS Limited/Unobtainable: Yes Allergies: Coded Allergies: No Known Allergies (Unverified , 04/21/18) Subjective 04/26: seen by bedside, awake,comfortable, no acute events, pending ERCP today 04/27: seen by bedside,awake, comfortable, abdominal pain resolved, s/p ercp with stone extraction, pancreatitis resolving Objective Last 24 Hour Vital Signs Date Time Temp Pulse Resp B/P (MAP) Pulse Ox O2 Delivery O2 Flow Rate FiO2 04/27/18 19:04 178/86 04/27/18 16:00 98.4 70 18 178/86 (116) 98 04/27/18 12:21 165/86 04/27/18 12:00 98.4 72 18 165/86 (112) 99 04/27/18 09:00 Room Air 04/27/18 08:56 156/73 04/27/18 08:00 98.4 68 18 156/73 (100) 99 04/27/18 04:26 168/73 04/27/18 04:00 98.8 64 18 168/73 (104) 98 04/27/18 00:00 99.3 61 18 134/68 (90) 99 04/26/18 21:00 Room Air 04/26/18 20:00 97.2 57 19 138/66 (90) 100 Intake and Output 04/26/18 04/27/18 19:00 07:00 Intake Total 1022.5 ml 900.0 ml Output Total 975 ml Balance 47.5 ml 900.0 ml Intake Oral 490 ml 240 ml IV Total 532.5 ml 660.0 ml Output Urine Total 975 ml Estimated Blood Loss 0 ml # Voids 2 3 # Bowel Movements 1 Laboratory Tests 04/27/18 05:15: White Blood Count 7.8, Red Blood Count 3.01L, Hemoglobin 9.3L, Hematocrit 27.8L , Mean Corpuscular Volume 92, Mean Corpuscular Hemoglobin 31.1H, Mean Corpuscular Hemoglobin Concent 33.6, Red Cell Distribution Width 13.5, Platelet Count 161, Mean Platelet Volume 7.8, Neutrophils (%) (Auto) 69.7, Lymphocytes (% ) (Auto) 14.2L, Monocytes (%) (Auto) 5.8, Eosinophils (%) (Auto) 9.5H, Basophils (%) (Auto) 0.8, Sodium Level 141, Potassium Level 3.1L, Chloride Level 112H, Carbon Dioxide Level 19L, Anion Gap 10, Blood Urea Nitrogen 6L, Creatinine 1.3, Estimat Glomerular Filtration Rate 55.9, Glucose Level 130H, Calcium Level 7.5L, Total Bilirubin 0.6, Aspartate Amino Transf (AST/SGOT) 20, Alanine Aminotransferase (ALT/SGPT) 27, Alkaline Phosphatase 151H, Total Protein 5.5L, Albumin 2.3L, Globulin 3.2, Albumin/Globulin Ratio 0.7L, Amylase Level 57, Lipase 366 Height (Feet): 5 Height (Inches): 5.00 Weight (Pounds): 140 Objective General Appearance: well appearing, no apparent distress, alert, thin Respiratory: normal breath sounds, no respiratory distress Cardiovascular: normal rate Gastrointestinal: normal inspection, non tender, soft Genitourinary: deferred Musculoskeletal: normal inspection, back normal Neurologic: normal inspection, alert, oriented x3, responsive Guero Hernandez MD Apr 27, 2018 19:06
--- NOTE | 2018-04-27 21:35 | General Progress Note ---
Assessment/Plan Problem List: (1) ARF (acute renal failure) ICD Codes: N17.9 - Acute kidney failure, unspecified SNOMED: 97090118 Qualifiers: Qualified Codes: N17.9 - Acute kidney failure, unspecified (2) Hypovolemic shock ICD Codes: R57.1 - Hypovolemic shock SNOMED: 12335684 (3) JONA (acute kidney injury) ICD Codes: N17.9 - Acute kidney failure, unspecified SNOMED: 02926005 Status: progressing Assessment/Plan arf resolved gallstones in cpb abdominal pain is improving acute cholycystitis abx per id dc if cleared by id Subjective ROS Limited/Unobtainable: Yes Allergies: Coded Allergies: No Known Allergies (Unverified , 04/21/18) Subjective general pain Objective Last 24 Hour Vital Signs Date Time Temp Pulse Resp B/P (MAP) Pulse Ox O2 Delivery O2 Flow Rate FiO2 04/27/18 20:00 97.8 67 18 165/76 (105) 99 04/27/18 19:04 178/86 04/27/18 16:00 98.4 70 18 178/86 (116) 98 04/27/18 12:21 165/86 04/27/18 12:00 98.4 72 18 165/86 (112) 99 04/27/18 09:00 Room Air 04/27/18 08:56 156/73 04/27/18 08:00 98.4 68 18 156/73 (100) 99 04/27/18 04:26 168/73 04/27/18 04:00 98.8 64 18 168/73 (104) 98 04/27/18 00:00 99.3 61 18 134/68 (90) 99 Intake and Output 04/26/18 04/27/18 19:00 07:00 Intake Total 1022.5 ml 900.0 ml Output Total 975 ml Balance 47.5 ml 900.0 ml Intake Oral 490 ml 240 ml IV Total 532.5 ml 660.0 ml Output Urine Total 975 ml Estimated Blood Loss 0 ml # Voids 2 3 # Bowel Movements 1 Laboratory Tests 04/27/18 05:15: White Blood Count 7.8, Red Blood Count 3.01L, Hemoglobin 9.3L, Hematocrit 27.8L , Mean Corpuscular Volume 92, Mean Corpuscular Hemoglobin 31.1H, Mean Corpuscular Hemoglobin Concent 33.6, Red Cell Distribution Width 13.5, Platelet Count 161, Mean Platelet Volume 7.8, Neutrophils (%) (Auto) 69.7, Lymphocytes (% ) (Auto) 14.2L, Monocytes (%) (Auto) 5.8, Eosinophils (%) (Auto) 9.5H, Basophils (%) (Auto) 0.8, Sodium Level 141, Potassium Level 3.1L, Chloride Level 112H, Carbon Dioxide Level 19L, Anion Gap 10, Blood Urea Nitrogen 6L, Creatinine 1.3, Estimat Glomerular Filtration Rate 55.9, Glucose Level 130H, Calcium Level 7.5L, Total Bilirubin 0.6, Aspartate Amino Transf (AST/SGOT) 20, Alanine Aminotransferase (ALT/SGPT) 27, Alkaline Phosphatase 151H, Total Protein 5.5L, Albumin 2.3L, Globulin 3.2, Albumin/Globulin Ratio 0.7L, Amylase Level 57, Lipase 366 Height (Feet): 5 Height (Inches): 5.00 Weight (Pounds): 140 Neck: supple Cardiovascular: normal rate Respiratory/Chest: lungs clear Abdomen: soft Oksana Casey MD Apr 27, 2018 21:35
--- NOTE | 2018-04-27 21:36 | Cardiology Progress Note ---
Assessment/Plan Assessment/Plan 1. Septic shock, continue hydration. Echo reveals normal LV systolic and diastolic function. 2. JONA, creatinine stable at 1.3. 3. History of diabetes mellitus. 4. History of hypertension, increase lisinopril to 10mg bid. 5. Gallstone pancreatitis. Subjective Subjective No cardiac events noted. Objective Last 24 Hour Vital Signs Date Time Temp Pulse Resp B/P (MAP) Pulse Ox O2 Delivery O2 Flow Rate FiO2 04/27/18 20:00 97.8 67 18 165/76 (105) 99 04/27/18 19:04 178/86 04/27/18 16:00 98.4 70 18 178/86 (116) 98 04/27/18 12:21 165/86 04/27/18 12:00 98.4 72 18 165/86 (112) 99 04/27/18 09:00 Room Air 04/27/18 08:56 156/73 04/27/18 08:00 98.4 68 18 156/73 (100) 99 04/27/18 04:26 168/73 04/27/18 04:00 98.8 64 18 168/73 (104) 98 04/27/18 00:00 99.3 61 18 134/68 (90) 99 Intake and Output 04/26/18 04/27/18 19:00 07:00 Intake Total 1022.5 ml 900.0 ml Output Total 975 ml Balance 47.5 ml 900.0 ml Intake Oral 490 ml 240 ml IV Total 532.5 ml 660.0 ml Output Urine Total 975 ml Estimated Blood Loss 0 ml # Voids 2 3 # Bowel Movements 1 2D Echo: LVEF 55%, RVSP 42 mmHg Laboratory Tests Test 04/27/18 05:15 White Blood Count 7.8 K/UL (4.8-10.8) Red Blood Count 3.01 M/UL (4.70-6.10) L Hemoglobin 9.3 G/DL (14.2-18.0) L Hematocrit 27.8 % (42.0-52.0) L Mean Corpuscular Volume 92 FL (80-99) Mean Corpuscular Hemoglobin 31.1 PG (27.0-31.0) H Mean Corpuscular Hemoglobin Concent 33.6 G/DL (32.0-36.0) Red Cell Distribution Width 13.5 % (11.6-14.8) Platelet Count 161 K/UL (150-450) Mean Platelet Volume 7.8 FL (6.5-10.1) Neutrophils (%) (Auto) 69.7 % (45.0-75.0) Lymphocytes (%) (Auto) 14.2 % (20.0-45.0) L Monocytes (%) (Auto) 5.8 % (1.0-10.0) Eosinophils (%) (Auto) 9.5 % (0.0-3.0) H Basophils (%) (Auto) 0.8 % (0.0-2.0) Sodium Level 141 MMOL/L (136-145) Potassium Level 3.1 MMOL/L (3.5-5.1) L Chloride Level 112 MMOL/L (98-107) H Carbon Dioxide Level 19 MMOL/L (21-32) L Anion Gap 10 mmol/L (5-15) Blood Urea Nitrogen 6 mg/dL (7-18) L Creatinine 1.3 MG/DL (0.55-1.30) Estimat Glomerular Filtration Rate 55.9 mL/min (>60) Glucose Level 130 MG/DL (74-106) H Calcium Level 7.5 MG/DL (8.5-10.1) L Total Bilirubin 0.6 MG/DL (0.2-1.0) Aspartate Amino Transf (AST/SGOT) 20 U/L (15-37) Alanine Aminotransferase (ALT/SGPT) 27 U/L (12-78) Alkaline Phosphatase 151 U/L (46-116) H Total Protein 5.5 G/DL (6.4-8.2) L Albumin 2.3 G/DL (3.4-5.0) L Globulin 3.2 g/dL Albumin/Globulin Ratio 0.7 (1.0-2.7) L Amylase Level 57 U/L (25-115) Lipase 366 U/L (73-393) Objective HEENT: Atraumatic, normocephalic. ENT, pupils are equal, round, and reactive to light and accommodation. Extraocular muscles intact. NECK: JVP less than 5 cm. No carotid bruit. Carotid upstrokes 2+ bilaterally. CARDIOVASCULAR SYSTEM: Normal S1, S2. Regular rate and rhythm. No murmurs, gallops, or rubs. PMI is at fourth intercostal space at midclavicular line. LUNGS: Clear to auscultation bilaterally. ABDOMEN: Soft, nontender, and nondistended. No hepatosplenomegaly. Positive bowel sounds. EXTREMITIES: No evidence of edema, clubbing, or cyanosis. Alvaro Hargrove MD Apr 27, 2018 21:36
[2018-04-28 00:30] VITALS: BP 140/69
[2018-04-28 03:55] VITALS: BP 122/67
[2018-04-28] MEDS: Piperacillin/Tazobactam 3.375 GM in D5W 110 ML IVPB SCH ×3 (05:47→22:53)
[2018-04-28] MEDS: NovoLOG Insulin Flexpen SUBQ SCH ×4 (06:39→21:00)
[2018-04-28 08:00] VITALS: BP 118/80
[2018-04-28 08:45] LABS: BASOPHILS % (AUTO) 0.9 % (0.0-2.0); EOSINOPHILS % (AUTO) 5.3 % (0.0-3.0); HEMOGLOBIN 8.8 G/DL (14.2-18.0); LYMPHOCYTES % (AUTO) 9.1 % (20.0-45.0); MEAN CORPUSCULAR VOLUME 92 FL (80-99); MONOCYTES % (AUTO) 3.5 % (1.0-10.0); NEUTROPHILS % (AUTO) 81.2 % (45.0-75.0); PLATELET COUNT 166 K/UL (150-450); RED BLOOD COUNT 2.82 M/UL (4.70-6.10); RED CELL DISTRIBUTION WIDTH 13.6 % (11.6-14.8); WHITE BLOOD COUNT 9.5 K/UL (4.8-10.8)
[2018-04-28] MEDS: Heparin 5000 units/ml inj SUBQ SCH (09:00)
[2018-04-28] MEDS ORDERED: Lisinopril 10mg tab ORAL SCH (09:00)
--- NOTE | 2018-04-28 09:25 | General Progress Note ---
Assessment/Plan Problem List: (1) Diabetes ICD Codes: E11.9 - Type 2 diabetes mellitus without complications SNOMED: 96388259 (2) Gallstone pancreatitis ICD Codes: K85.10 - Biliary acute pancreatitis without necrosis or infection SNOMED: 19590927 (3) Anemia ICD Codes: D64.9 - Anemia, unspecified SNOMED: 054096306 (4) Choledocholithiasis with acute cholecystitis ICD Codes: K80.42 - Calculus of bile duct with acute cholecystitis without obstruction SNOMED: 61748253 Assessment/Plan s/p ERCP normal lfts, amylase and lipase on diet fu surg no further GI procedures at this time Subjective ROS Limited/Unobtainable: Yes Allergies: Coded Allergies: No Known Allergies (Unverified , 04/21/18) Objective Last 24 Hour Vital Signs Date Time Temp Pulse Resp B/P (MAP) Pulse Ox O2 Delivery O2 Flow Rate FiO2 04/28/18 08:00 98.6 83 18 118/80 (93) 100 83 04/28/18 03:55 98.8 74 18 122/67 (85) 99 78 04/28/18 00:30 140/69 (92) 04/27/18 23:33 169/87 04/27/18 23:30 98.4 80 18 169/87 (114) 99 04/27/18 21:00 Room Air 04/27/18 20:00 97.8 67 18 165/76 (105) 99 04/27/18 19:04 178/86 04/27/18 16:00 98.4 70 18 178/86 (116) 98 04/27/18 12:21 165/86 04/27/18 12:00 98.4 72 18 165/86 (112) 99 Intake and Output 04/27/18 04/28/18 19:00 07:00 Intake Total 720 ml 377.5 ml Output Total 800 ml Balance -80 ml 377.5 ml Intake Oral 720 ml 240 ml IV Total 137.5 ml Output Urine Total 800 ml # Voids 3 # Bowel Movements 1 4 Laboratory Tests 04/28/18 06:05: Stool Occult Blood [Pending] 04/28/18 07:50: White Blood Count 9.5, Red Blood Count 2.82L, Hemoglobin 8.8L, Hematocrit 26.0L , Mean Corpuscular Volume 92, Mean Corpuscular Hemoglobin 31.4H, Mean Corpuscular Hemoglobin Concent 34.0, Red Cell Distribution Width 13.6, Platelet Count 166, Mean Platelet Volume 8.2, Neutrophils (%) (Auto) 81.2H, Lymphocytes ( %) (Auto) 9.1L, Monocytes (%) (Auto) 3.5, Eosinophils (%) (Auto) 5.3H, Basophils (%) (Auto) 0.9 Height (Feet): 5 Height (Inches): 5.00 Weight (Pounds): 140 General Appearance: alert EENT: normal ENT inspection Neck: supple Cardiovascular: normal rate Respiratory/Chest: decreased breath sounds Abdomen: normal bowel sounds, non tender, soft Extremities: non-tender León Lambert MD Apr 28, 2018 09:25
[2018-04-28] MEDS: Pantoprazole Inj IVP SCH (09:44)
--- NOTE | 2018-04-28 10:34 | Infectious Diseases Prog Note ---
Assessment/Plan Assessment/Plan A; 1. Sepsis resolved 2.Cholelithiasis/Choledocholithiasis s/p ERCP 3. Leukocytosis. resolved 4. acute renal failure, improving 5. Elevated transaminase. 6. Diabetes mellitus. 7. Hypertension. 8. Lactic acidosis. 9. Pancreatitis 10. Diarrhea, negative C. difficile test 11. GI Bleeding P: Continue Zosyn Elective Cholecystectomy as suggested by surgeon Will have EGD Subjective ROS Limited/Unobtainable: No Constitutional: Reports: no symptoms Respiratory: Reports: no symptoms Gastrointestinal/Abdominal: Reports: diarrhea, blood in stool Genitourinary: Reports: no symptoms Allergies: Coded Allergies: No Known Allergies (Unverified , 04/21/18) Objective Vital Signs Last 24 Hour Vital Signs Date Time Temp Pulse Resp B/P (MAP) Pulse Ox O2 Delivery O2 Flow Rate FiO2 04/28/18 09:44 118/80 04/28/18 08:00 98.6 83 18 118/80 (93) 100 83 04/28/18 03:55 98.8 74 18 122/67 (85) 99 78 04/28/18 00:30 140/69 (92) 04/27/18 23:33 169/87 04/27/18 23:30 98.4 80 18 169/87 (114) 99 04/27/18 21:00 Room Air 04/27/18 20:00 97.8 67 18 165/76 (105) 99 04/27/18 19:04 178/86 04/27/18 16:00 98.4 70 18 178/86 (116) 98 04/27/18 12:21 165/86 04/27/18 12:00 98.4 72 18 165/86 (112) 99 Height (Feet): 5 Height (Inches): 5.00 Weight (Pounds): 140 General Appearance: no acute distress HEENT: mucous membranes moist Respiratory/Chest: lungs clear Cardiovascular: normal rate Abdomen: soft, non tender Extremities: no edema Neurologic/Psychiatric: alert, responsive Laboratory Tests Test 04/28/18 06:05 04/28/18 07:50 Stool Occult Blood Pending White Blood Count 9.5 K/UL (4.8-10.8) Red Blood Count 2.82 M/UL (4.70-6.10) L Hemoglobin 8.8 G/DL (14.2-18.0) L Hematocrit 26.0 % (42.0-52.0) L Mean Corpuscular Volume 92 FL (80-99) Mean Corpuscular Hemoglobin 31.4 PG (27.0-31.0) H Mean Corpuscular Hemoglobin Concent 34.0 G/DL (32.0-36.0) Red Cell Distribution Width 13.6 % (11.6-14.8) Platelet Count 166 K/UL (150-450) Mean Platelet Volume 8.2 FL (6.5-10.1) Neutrophils (%) (Auto) 81.2 % (45.0-75.0) H Lymphocytes (%) (Auto) 9.1 % (20.0-45.0) L Monocytes (%) (Auto) 3.5 % (1.0-10.0) Eosinophils (%) (Auto) 5.3 % (0.0-3.0) H Basophils (%) (Auto) 0.9 % (0.0-2.0) Current Medications Medications (Trade) Dose Ordered Sig/Jamal Route PRN Reason Start Time Stop Time Status Last Admin Dose Admin Acetaminophen (Tylenol) 500 mg Q4H PRN ORAL Mild Pain/Temp > 100.5 04/24/18 14:00 05/23/18 13:59 Dextrose (Dextrose 50%) 25 ml Q30M PRN IV Hypoglycemia 04/24/18 14:00 05/21/18 10:59 Dextrose (Dextrose 50%) 50 ml Q30M PRN IV Hypoglycemia 04/24/18 14:00 05/21/18 10:59 Folic Acid (Folate) 3 mg DAILY ORAL 04/25/18 09:00 05/22/18 17:14 04/28/18 09:43 Heparin Sodium (Porcine) (Heparin 5000 units/ml) 5,000 units EVERY 12 HOURS SUBQ 04/24/18 21:00 05/23/18 20:59 04/27/18 22:07 Hydralazine HCl (Apresoline) 25 mg Q4H PRN ORAL bp over 160 syst 04/26/18 13:15 05/26/18 13:14 04/27/18 23:33 Insulin Aspart (NovoLOG) BEFORE MEALS AND HS SUBQ 04/24/18 16:30 05/21/18 11:29 04/28/18 06:39 Lisinopril (Zestril) 10 mg BID ORAL 04/28/18 09:00 05/28/18 08:59 04/28/18 09:44 Pantoprazole (Protonix) 40 mg DAILY IVP 04/25/18 09:00 05/22/18 08:59 04/28/18 09:44 Piperacillin Sod/ Tazobactam Sod 3.375 gm/Dextrose 110 ml @ 27.5 mls/hr EVERY 8 HOURS IVPB 04/24/18 14:00 04/29/18 13:59 04/28/18 05:47 Potassium Chloride (K-Dur) 40 meq TWICE A DAY ORAL 04/27/18 18:00 05/27/18 17:59 04/28/18 09:43 Thai Hale MD Apr 28, 2018 10:34
[2018-04-28 12:00] VITALS: BP 146/83
--- NOTE | 2018-04-28 13:06 | Surgery Progress Note ---
Surgery Progress Note Subjective Additional Comments was ready for d/c but just had bloody BM. ANA performed and noted loose melena Objective Last 24 Hour Vital Signs Date Time Temp Pulse Resp B/P (MAP) Pulse Ox O2 Delivery O2 Flow Rate FiO2 04/28/18 09:44 118/80 04/28/18 08:00 98.6 83 18 118/80 (93) 100 83 04/28/18 03:55 98.8 74 18 122/67 (85) 99 78 04/28/18 00:30 140/69 (92) 04/27/18 23:33 169/87 04/27/18 23:30 98.4 80 18 169/87 (114) 99 04/27/18 21:00 Room Air 04/27/18 20:00 97.8 67 18 165/76 (105) 99 04/27/18 19:04 178/86 04/27/18 16:00 98.4 70 18 178/86 (116) 98 I&O Intake and Output 04/27/18 04/28/18 19:00 07:00 Intake Total 720 ml 377.5 ml Output Total 800 ml Balance -80 ml 377.5 ml Intake Oral 720 ml 240 ml IV Total 137.5 ml Output Urine Total 800 ml # Voids 3 # Bowel Movements 1 4 Cardiovascular: RSR Respiratory: clear Abdomen: soft, flat, non-tender, present bowel sounds, non-distended Extremities: no tenderness, no cyanosis Laboratory Tests Test 04/28/18 06:05 04/28/18 07:50 Stool Occult Blood Positive (NEGATIVE) White Blood Count 9.5 K/UL (4.8-10.8) Red Blood Count 2.82 M/UL (4.70-6.10) L Hemoglobin 8.8 G/DL (14.2-18.0) L Hematocrit 26.0 % (42.0-52.0) L Mean Corpuscular Volume 92 FL (80-99) Mean Corpuscular Hemoglobin 31.4 PG (27.0-31.0) H Mean Corpuscular Hemoglobin Concent 34.0 G/DL (32.0-36.0) Red Cell Distribution Width 13.6 % (11.6-14.8) Platelet Count 166 K/UL (150-450) Mean Platelet Volume 8.2 FL (6.5-10.1) Neutrophils (%) (Auto) 81.2 % (45.0-75.0) H Lymphocytes (%) (Auto) 9.1 % (20.0-45.0) L Monocytes (%) (Auto) 3.5 % (1.0-10.0) Eosinophils (%) (Auto) 5.3 % (0.0-3.0) H Basophils (%) (Auto) 0.9 % (0.0-2.0) Plan Problems: (1) Acute cholecystitis Assessment & Plan: US with Distended urinary bladder. Torres catheter not visualized but present. Clinical evaluation is needed. Recommend removal of the Torres catheter and replacement. Mild pelvocaliectasis noted which is likely on the basis of the distended bladder. Suspected choledocholithiasis with the one or more stones in the distal common bile duct. Moderate biliary ductal dilatation demonstrated. Cholelithiasis with distention of the gallbladder and wall thickening. Leukocytosis Hypotensive shock Abnormal LFT's. Possible choledocholithiasis MRI reviewed. likely gallstone pancreatitis with choledocholithiasis. labs improving jennifer/lip improved s/p ercp with stone extration recovering. -diet as tolerated -Abx as per ID -no acute surgical intervention planned -elective cholecystectomy in 6 weeks. had significant acute pancreatitis with sepsis and would benefit from recovery for decreased inflammation prior to cholecystectomy -d/c planning -thank you for this consult. will follow with recs. (2) Hypovolemic shock (3) Rectal bleeding Assessment & Plan: hold discharge had blood in rectal vault and bloody BM discussed with GI plan for scope tomorrow Martin Sterling Apr 28, 2018 13:06
--- NOTE | 2018-04-28 13:22 | GI Progress Note ---
Assessment/Plan Problems: (1) Diabetes ICD Codes: E11.9 - Type 2 diabetes mellitus without complications SNOMED: 95715149 (2) Anemia ICD Codes: D64.9 - Anemia, unspecified SNOMED: 602204453 (3) Choledocholithiasis with acute cholecystitis ICD Codes: K80.42 - Calculus of bile duct with acute cholecystitis without obstruction SNOMED: 54080195 (4) Dehydration ICD Codes: E86.0 - Dehydration SNOMED: 16957962 (5) Gall bladder stones ICD Codes: K80.20 - Calculus of gallbladder without cholecystitis without obstruction SNOMED: 584480238 Status: unchanged Status Narrative Discussed with Dr. Lambert Assessment/Plan SUMMARY OF FINDINGS: 1. Choledocholithiasis. 2. Status post ERCP, sphincterotomy, stone removal. Onset of dark tarry stools RECOMMENDATIONS: EGD scheduled for tomorrow Maintain the patient n.p.o. plus IV fluids PRN transfusions PPI twice daily We will follow with additional recommendations post procedure The patient was seen and examined at bedside and all new and available data was reviewed in the patients chart. I agree with the above findings, impression and plan. (Patient seen earlier today. Signature stamp does not reflect patient encounter time.). - León Lambert MD Subjective Subjective Patient has new complaint of dark tarry stools Objective Last 24 Hour Vital Signs Date Time Temp Pulse Resp B/P (MAP) Pulse Ox O2 Delivery O2 Flow Rate FiO2 04/28/18 09:44 118/80 04/28/18 08:00 98.6 83 18 118/80 (93) 100 83 04/28/18 03:55 98.8 74 18 122/67 (85) 99 78 04/28/18 00:30 140/69 (92) 04/27/18 23:33 169/87 04/27/18 23:30 98.4 80 18 169/87 (114) 99 04/27/18 21:00 Room Air 04/27/18 20:00 97.8 67 18 165/76 (105) 99 04/27/18 19:04 178/86 04/27/18 16:00 98.4 70 18 178/86 (116) 98 Intake and Output 04/27/18 04/28/18 19:00 07:00 Intake Total 720 ml 377.5 ml Output Total 800 ml Balance -80 ml 377.5 ml Intake Oral 720 ml 240 ml IV Total 137.5 ml Output Urine Total 800 ml # Voids 3 # Bowel Movements 1 4 Laboratory Tests Test 04/28/18 06:05 04/28/18 07:50 Stool Occult Blood Positive (NEGATIVE) White Blood Count 9.5 K/UL (4.8-10.8) Red Blood Count 2.82 M/UL (4.70-6.10) L Hemoglobin 8.8 G/DL (14.2-18.0) L Hematocrit 26.0 % (42.0-52.0) L Mean Corpuscular Volume 92 FL (80-99) Mean Corpuscular Hemoglobin 31.4 PG (27.0-31.0) H Mean Corpuscular Hemoglobin Concent 34.0 G/DL (32.0-36.0) Red Cell Distribution Width 13.6 % (11.6-14.8) Platelet Count 166 K/UL (150-450) Mean Platelet Volume 8.2 FL (6.5-10.1) Neutrophils (%) (Auto) 81.2 % (45.0-75.0) H Lymphocytes (%) (Auto) 9.1 % (20.0-45.0) L Monocytes (%) (Auto) 3.5 % (1.0-10.0) Eosinophils (%) (Auto) 5.3 % (0.0-3.0) H Basophils (%) (Auto) 0.9 % (0.0-2.0) Height (Feet): 5 Height (Inches): 5.00 Weight (Pounds): 140 General Appearance: WD/WN, no apparent distress, alert, thin Cardiovascular: normal rate Respiratory/Chest: normal breath sounds, no respiratory distress Abdominal Exam: normal bowel sounds, non tender, soft Extremities: normal range of motion, non-tender Lori Douglass NP Apr 28, 2018 13:22
--- NOTE | 2018-04-28 13:32 | Nephrology Progress Note ---
Assessment/Plan Problem List: (1) JONA (acute kidney injury) Assessment: Cr lowering (2) Gallstone pancreatitis (3) Anemia (4) Dehydration (5) Hypovolemic shock (6) Diabetes Assessment: with elevated HgbA1c Assessment new complain of rectal bleed and dark stool Plan K supp adjust BP meds- consider transfusion as needed Monitor renal parameters Monitor CPK Antibiotics per ID avoid nephrotoxics per GI Subjective ROS Limited/Unobtainable: No Constitutional: Reports: malaise Objective Objective Last 24 Hour Vital Signs Date Time Temp Pulse Resp B/P (MAP) Pulse Ox O2 Delivery O2 Flow Rate FiO2 04/28/18 09:44 118/80 04/28/18 08:00 98.6 83 18 118/80 (93) 100 83 04/28/18 03:55 98.8 74 18 122/67 (85) 99 78 04/28/18 00:30 140/69 (92) 04/27/18 23:33 169/87 04/27/18 23:30 98.4 80 18 169/87 (114) 99 04/27/18 21:00 Room Air 04/27/18 20:00 97.8 67 18 165/76 (105) 99 04/27/18 19:04 178/86 04/27/18 16:00 98.4 70 18 178/86 (116) 98 Intake and Output 04/27/18 04/28/18 19:00 07:00 Intake Total 720 ml 377.5 ml Output Total 800 ml Balance -80 ml 377.5 ml Intake Oral 720 ml 240 ml IV Total 137.5 ml Output Urine Total 800 ml # Voids 3 # Bowel Movements 1 4 Laboratory Tests 04/28/18 06:05: Stool Occult Blood Positive 04/28/18 07:50: White Blood Count 9.5, Red Blood Count 2.82L, Hemoglobin 8.8L, Hematocrit 26.0L , Mean Corpuscular Volume 92, Mean Corpuscular Hemoglobin 31.4H, Mean Corpuscular Hemoglobin Concent 34.0, Red Cell Distribution Width 13.6, Platelet Count 166, Mean Platelet Volume 8.2, Neutrophils (%) (Auto) 81.2H, Lymphocytes ( %) (Auto) 9.1L, Monocytes (%) (Auto) 3.5, Eosinophils (%) (Auto) 5.3H, Basophils (%) (Auto) 0.9 Height (Feet): 5 Height (Inches): 5.00 Weight (Pounds): 140 General Appearance: no apparent distress Cardiovascular: normal rate Respiratory/Chest: decreased breath sounds Abdomen: soft Objective no change Orlin Berrios MD Apr 28, 2018 13:32
[2018-04-28 16:00] VITALS: BP 117/73
--- NOTE | 2018-04-28 17:32 | General Progress Note ---
Assessment/Plan Assessment/Plan Assessment and Recs: # Anemia of chronic disease - likely multifactorial and h/h has been relatively stable --> Anemia workup has been ordered --> No evidence of hemolysis is noted, peripheral smear has been reviewed. --> Hgb goal >7. Transfuse prn. --> Epogen or iron at this time is not particularly indicated # Thrombocytopenia likely due to liver disease/cirrhosis --> Medications have been reviewed --> if the plt count less than 10k, transfuse immediately. If less than 20k and febrile, transfuse --> If less than 50k and bleeding, transfuse. If neurosurgical bleed, transfuse as well # Sepsis - continue antibiotics with ID service, appreciate recs --> likely due to gallstone pancreatitis # Dehydration --> per renal # Choledocholithiasis with acute cholecystitis --> ERCP to be scheduled 04/26 # Acute cholecystitis --> bowel regime, ppi --> surg following The timing of this note does not necessarily reflect the time of the patient was seen. Greatly appreciate consultation! Subjective Constitutional: Denies: no symptoms, chills, diaphoresis, fever, malaise, weakness, other HEENT: Denies: no symptoms, eye pain, blurred vision, tearing, double vision, ear pain, ear discharge, nose pain, nose congestion, throat pain, throat swelling, mouth pain, mouth swelling, other Cardiovascular: Denies: no symptoms, chest pain, edema, irregular heart rate, lightheadedness, palpitations, syncope, other Respiratory: Denies: no symptoms, cough, orthopnea, shortness of breath, SOB with excertion, SOB at rest, sputum, stridor, wheezing, other Gastrointestinal/Abdominal: Denies: no symptoms, abdomen distended, abdominal pain, black stools, tarry stools, blood in stool, constipated, diarrhea, difficulty swallowing, nausea, poor appetite, poor fluid intake, rectal bleeding , vomiting, other Genitourinary: Denies: no symptoms, burning, discharge, frequency, flank pain, hematuria, incontinence, pain, urgency, other Neurologic/Psychiatric: Denies: no symptoms, anxiety, depressed, emotional problems, headache, numbness, paresthesia, pre-existing deficit, seizure, tingling, tremors, weakness, other Endocrine: Denies: no symptoms, excessive sweating, flushing, intolerance to cold, intolerance to heat, increased hunger, increased thirst, increased urine, unexplained weight gain, unexplained weight loss, other Hematologic/Lymphatic: Denies: no symptoms, anemia, easy bleeding, easy bruising, other Allergies: Coded Allergies: No Known Allergies (Unverified , 04/21/18) Subjective 04/26: seen by bedside, awake,comfortable, no acute events, pending ERCP today 04/27: seen by bedside,awake, comfortable, abdominal pain resolved, s/p ercp with stone extraction, pancreatitis resolving 04/28: EGD scheduled for tomorrow, no acute distress. Objective Last 24 Hour Vital Signs Date Time Temp Pulse Resp B/P (MAP) Pulse Ox O2 Delivery O2 Flow Rate FiO2 04/28/18 12:00 98.3 81 18 146/83 (104) 100 81 04/28/18 09:44 118/80 04/28/18 09:00 Room Air 04/28/18 08:00 98.6 83 18 118/80 (93) 100 83 04/28/18 03:55 98.8 74 18 122/67 (85) 99 78 04/28/18 00:30 140/69 (92) 04/27/18 23:33 169/87 04/27/18 23:30 98.4 80 18 169/87 (114) 99 04/27/18 21:00 Room Air 04/27/18 20:00 97.8 67 18 165/76 (105) 99 04/27/18 19:04 178/86 Intake and Output 04/27/18 04/28/18 18:59 06:59 Intake Total 770 ml 377.5 ml Output Total 800 ml Balance -30 ml 377.5 ml Intake Oral 720 ml 240 ml IV Total 50 ml 137.5 ml Output Urine Total 800 ml # Voids 3 # Bowel Movements 1 4 Laboratory Tests 04/28/18 06:05: Stool Occult Blood Positive 04/28/18 07:50: White Blood Count 9.5, Red Blood Count 2.82L, Hemoglobin 8.8L, Hematocrit 26.0L , Mean Corpuscular Volume 92, Mean Corpuscular Hemoglobin 31.4H, Mean Corpuscular Hemoglobin Concent 34.0, Red Cell Distribution Width 13.6, Platelet Count 166, Mean Platelet Volume 8.2, Neutrophils (%) (Auto) 81.2H, Lymphocytes ( %) (Auto) 9.1L, Monocytes (%) (Auto) 3.5, Eosinophils (%) (Auto) 5.3H, Basophils (%) (Auto) 0.9 Height (Feet): 5 Height (Inches): 5.00 Weight (Pounds): 140 Objective General Appearance: well appearing, no apparent distress, alert, thin Respiratory: normal breath sounds, no respiratory distress Cardiovascular: normal rate Gastrointestinal: normal inspection, non tender, soft Genitourinary: deferred Musculoskeletal: normal inspection, back normal Neurologic: normal inspection, alert, oriented x3, responsive Guero Hernandez MD Apr 28, 2018 17:32
[2018-04-28] MEDS ORDERED: Pantoprazole Inj IVP SCH (18:00)
[2018-04-28 20:00] VITALS: BP 139/85
[2018-04-28 20:14] LABS: BASOPHILS % (AUTO) 0.7 % (0.0-2.0); EOSINOPHILS % (AUTO) 4.2 % (0.0-3.0); HEMATOCRIT 25.1 % (42.0-52.0); HEMOGLOBIN 8.4 G/DL (14.2-18.0); LYMPHOCYTES % (AUTO) 7.1 % (20.0-45.0); MEAN CORPUSCULAR VOLUME 92 FL (80-99); MONOCYTES % (AUTO) 4.7 % (1.0-10.0); NEUTROPHILS % (AUTO) 83.2 % (45.0-75.0); PLATELET COUNT 175 K/UL (150-450); RED BLOOD COUNT 2.72 M/UL (4.70-6.10); RED CELL DISTRIBUTION WIDTH 13.7 % (11.6-14.8); WHITE BLOOD COUNT 11.9 K/UL (4.8-10.8)
[2018-04-28] MEDS: Pantoprazole 80 MG in NS 250 ML IV SCH (20:41)
--- NOTE | 2018-04-28 21:19 | General Progress Note ---
Assessment/Plan Problem List: (1) ARF (acute renal failure) ICD Codes: N17.9 - Acute kidney failure, unspecified SNOMED: 27101504 Qualifiers: Qualified Codes: N17.9 - Acute kidney failure, unspecified (2) Hypovolemic shock ICD Codes: R57.1 - Hypovolemic shock SNOMED: 58870744 (3) JONA (acute kidney injury) ICD Codes: N17.9 - Acute kidney failure, unspecified SNOMED: 63223701 Status: deteriorating Assessment/Plan arf resolved gallstones in cpb abdominal pain is improving acute cholycystitis had large melena consulted dr randolph for endoscopy check h/h Subjective Gastrointestinal/Abdominal: Reports: abdominal pain Allergies: Coded Allergies: No Known Allergies (Unverified , 04/21/18) Subjective general pain Objective Last 24 Hour Vital Signs Date Time Temp Pulse Resp B/P (MAP) Pulse Ox O2 Delivery O2 Flow Rate FiO2 04/28/18 16:00 98.7 79 20 117/73 (88) 100 79 04/28/18 12:00 98.3 81 18 146/83 (104) 100 81 04/28/18 09:44 118/80 04/28/18 09:00 Room Air 04/28/18 08:00 98.6 83 18 118/80 (93) 100 83 04/28/18 03:55 98.8 74 18 122/67 (85) 99 78 04/28/18 00:30 140/69 (92) 04/27/18 23:33 169/87 04/27/18 23:30 98.4 80 18 169/87 (114) 99 Intake and Output 04/27/18 04/28/18 18:59 06:59 Intake Total 770 ml 377.5 ml Output Total 800 ml Balance -30 ml 377.5 ml Intake Oral 720 ml 240 ml IV Total 50 ml 137.5 ml Output Urine Total 800 ml # Voids 3 # Bowel Movements 1 4 Laboratory Tests 04/28/18 06:05: Stool Occult Blood Positive 04/28/18 07:50: White Blood Count 9.5, Red Blood Count 2.82L, Hemoglobin 8.8L, Hematocrit 26.0L , Mean Corpuscular Volume 92, Mean Corpuscular Hemoglobin 31.4H, Mean Corpuscular Hemoglobin Concent 34.0, Red Cell Distribution Width 13.6, Platelet Count 166, Mean Platelet Volume 8.2, Neutrophils (%) (Auto) 81.2H, Lymphocytes ( %) (Auto) 9.1L, Monocytes (%) (Auto) 3.5, Eosinophils (%) (Auto) 5.3H, Basophils (%) (Auto) 0.9 04/28/18 19:55: White Blood Count 11.9H, Red Blood Count 2.72L, Hemoglobin 8.4L, Hematocrit 25.1L, Mean Corpuscular Volume 92, Mean Corpuscular Hemoglobin 30.7, Mean Corpuscular Hemoglobin Concent 33.3, Red Cell Distribution Width 13.7, Platelet Count 175, Mean Platelet Volume 7.5, Neutrophils (%) (Auto) 83.2H, Lymphocytes ( %) (Auto) 7.1L, Monocytes (%) (Auto) 4.7, Eosinophils (%) (Auto) 4.2H, Basophils (%) (Auto) 0.7 Height (Feet): 5 Height (Inches): 5.00 Weight (Pounds): 140 Cardiovascular: normal rate Respiratory/Chest: lungs clear Abdomen: tender Oksana Casey MD Apr 28, 2018 21:19
[2018-04-29] VITALS (10 sets, daily range): BP systolic 91–174; BP diastolic 52–90
[2018-04-29] MEDS: NovoLOG Insulin Flexpen SUBQ SCH ×4 (06:14→21:01)
[2018-04-29 06:34] LABS: EOSINOPHILS % (AUTO) 7.1 % (0.0-3.0); HEMATOCRIT 27.7 % (42.0-52.0); HEMOGLOBIN 9.1 G/DL (14.2-18.0); MEAN CORPUSCULAR VOLUME 94 FL (80-99); MONOCYTES % (AUTO) 5.2 % (1.0-10.0); NEUTROPHILS % (AUTO) 76.7 % (45.0-75.0); PLATELET COUNT 181 K/UL (150-450); RED BLOOD COUNT 2.93 M/UL (4.70-6.10); RED CELL DISTRIBUTION WIDTH 14.3 % (11.6-14.8); WHITE BLOOD COUNT 10.5 K/UL (4.8-10.8)
[2018-04-29] MEDS: Piperacillin/Tazobactam 3.375 GM in D5W 110 ML IVPB SCH ×3 (06:36→22:08)
[2018-04-29] MEDS: Pantoprazole 80 MG in NS 250 ML IV SCH ×2 (06:37→15:43)
[2018-04-29 06:43] LABS: INR 1.3 (0.9-1.1)
[2018-04-29 07:26] LABS: ALANINE AMINOTRANSFERASE 26 U/L (12-78); ALBUMIN 2.9 G/DL (3.4-5.0); ALBUMIN/GLOBULIN RATIO 0.8 (1.0-2.7); ALKALINE PHOSPHATASE 135 U/L (46-116); ANION GAP 10 mmol/L (5-15); ASPARTATE AMINO TRANSFERASE 14 U/L (15-37); BILIRUBIN,TOTAL 0.6 MG/DL (0.2-1.0); BLOOD UREA NITROGEN 7 mg/dL (7-18); CALCIUM 8.8 MG/DL (8.5-10.1); CARBON DIOXIDE 21 MMOL/L (21-32); CHLORIDE 114 MMOL/L (98-107); CREATININE 1.3 MG/DL (0.55-1.30); FERRITIN 477 NG/ML (8-388); GAMMA GLUTAMYL TRANSPEPTIDASE 125 U/L (5-85); PHOSPHORUS 1.3 MG/DL (2.5-4.9); POTASSIUM 4.6 MMOL/L (3.5-5.1); SODIUM 145 MMOL/L (136-145)
[2018-04-29 08:01] LABS: % IRON SATURATION 30 % (15-50); IRON 45 ug/dL (50-175); TOTAL IRON BINDING CAPACITY 151 ug/dL (250-450)
[2018-04-29] MEDS: Lisinopril 10mg tab ORAL SCH (09:00)
--- NOTE | 2018-04-29 10:56 | Pre-Procedure Note/Attestation ---
Pre-Procedure Note/Attestation Complete Prior to Procedure Planned Procedure: not applicable Procedure Narrative: egd Indications for Procedure Pre-Operative Diagnosis: GIB Attestation I attest that I discussed the nature of the procedure; its benefits; risks and complications; and alternatives (and the risks and benefits of such alternatives ), prior to the procedure, with the patient (or the patient's legal sales representative cash registers). I attest that, if there was a reasonable possibility of needing a blood transfusion, the patient (or the patient's legal sales representative cash registers) was given the [facility] standardized written summary, pursuant to the Ja Oliver Blood Safety Act ([place] Health and Safety Code # 1645, as amended). I attest that I re-evaluated the patient just prior to the surgery and that there has been no change in the patient's H&P, except as documented below: León Lambert MD Apr 29, 2018 10:56
[2018-04-29] MEDS ORDERED: Propofol 200mg/20ml IV ONE (11:00)
[2018-04-29] MEDS ORDERED: Lidocaine 1% MPF 10mg/ml 5ml ONE (11:00)
--- NOTE | 2018-04-29 11:01 | General Progress Note ---
Assessment/Plan Problem List: (1) ARF (acute renal failure) ICD Codes: N17.9 - Acute kidney failure, unspecified SNOMED: 64582752 Qualifiers: Qualified Codes: N17.9 - Acute kidney failure, unspecified (2) Hypovolemic shock ICD Codes: R57.1 - Hypovolemic shock SNOMED: 07949004 (3) JONA (acute kidney injury) ICD Codes: N17.9 - Acute kidney failure, unspecified SNOMED: 16897037 Status: progressing Assessment/Plan arf resolved gallstones in cpb unstable for dc w rectal bleeding (large amount) endoscopy per dr randolph acute cholycystitis had large melena check h/h Subjective ROS Limited/Unobtainable: Yes Allergies: Coded Allergies: No Known Allergies (Unverified , 04/21/18) Subjective general pain Objective Last 24 Hour Vital Signs Date Time Temp Pulse Resp B/P (MAP) Pulse Ox O2 Delivery O2 Flow Rate FiO2 04/29/18 09:00 122/81 04/29/18 08:00 98.0 86 19 122/81 (95) 98 04/29/18 04:00 98.4 72 20 112/68 (83) 99 04/29/18 00:00 99.0 70 20 137/62 (87) 99 04/28/18 21:00 Room Air 04/28/18 20:00 98.2 82 20 139/85 (103) 98 04/28/18 16:00 98.7 79 20 117/73 (88) 100 79 04/28/18 12:00 98.3 81 18 146/83 (104) 100 81 Intake and Output 04/28/18 04/29/18 19:00 07:00 Intake Total 120 ml 335.0 ml Output Total 1250 ml Balance 120 ml -915.0 ml Intake Oral 120 ml IV Total 335.0 ml Output Urine Total 1250 ml # Voids 2 4 # Bowel Movements 1 Laboratory Tests 04/28/18 19:55: White Blood Count 11.9H, Red Blood Count 2.72L, Hemoglobin 8.4L, Hematocrit 25.1L, Mean Corpuscular Volume 92, Mean Corpuscular Hemoglobin 30.7, Mean Corpuscular Hemoglobin Concent 33.3, Red Cell Distribution Width 13.7, Platelet Count 175, Mean Platelet Volume 7.5, Neutrophils (%) (Auto) 83.2H, Lymphocytes ( %) (Auto) 7.1L, Monocytes (%) (Auto) 4.7, Eosinophils (%) (Auto) 4.2H, Basophils (%) (Auto) 0.7 04/29/18 05:30: White Blood Count 10.5, Red Blood Count 2.93L, Hemoglobin 9.1L, Hematocrit 27.7L , Mean Corpuscular Volume 94, Mean Corpuscular Hemoglobin 31.1H, Mean Corpuscular Hemoglobin Concent 32.9, Red Cell Distribution Width 14.3, Platelet Count 181, Mean Platelet Volume 7.8, Neutrophils (%) (Auto) 76.7H, Lymphocytes ( %) (Auto) 10.0L, Monocytes (%) (Auto) 5.2, Eosinophils (%) (Auto) 7.1H, Basophils (%) (Auto) 1.0, Prothrombin Time 13.2H, Prothromb Time International Ratio 1.3H, Activated Partial Thromboplast Time 35H, Sodium Level 145, Potassium Level 4.6, Chloride Level 114H, Carbon Dioxide Level 21, Anion Gap 10 , Blood Urea Nitrogen 7, Creatinine 1.3, Estimat Glomerular Filtration Rate 55.9 , Glucose Level 128H, Uric Acid 3.0, Calcium Level 8.8, Phosphorus Level 1.3L, Magnesium Level 1.5L, Iron Level 45L, Total Iron Binding Capacity 151L, Percent Iron Saturation 30, Unsaturated Iron Binding 106L, Ferritin 477H, Total Bilirubin 0.6, Gamma Glutamyl Transpeptidase 125H, Aspartate Amino Transf (AST/ SGOT) 14L, Alanine Aminotransferase (ALT/SGPT) 26, Alkaline Phosphatase 135H, Total Protein 6.6, Albumin 2.9L, Globulin 3.7, Albumin/Globulin Ratio 0.8L, Lipase 800H, Vitamin B12 Level 319, Folate 37.0 Height (Feet): 5 Height (Inches): 5.00 Weight (Pounds): 106 Abdomen: tender Oksana Casey MD Apr 29, 2018 11:00
--- NOTE | 2018-04-29 11:24 | Anethesia Preoperative Eval ---
Anesthesia Pre-op PMH/ROS General Date of Evaluation: Apr 29, 2018 Time of Evaluation: 10:54 Anesthesiologist: Bhakti Thurman CRNA ASA Score: ASA 3 Mallampati Score Class I : Soft palate, uvula, fauces, pillars visible Class II: Soft palate, uvula, fauces visible Class III: Soft palate, base of uvula visible Class IV: Only hard plate visible Mallampati Classification: Class II Surgeon: Fausto Diagnosis: gi bleed Surgical Procedure: EGD diagnostic Anesthesia History: none Social History: smoking Family History: no anesthesia problems Allergies: Coded Allergies: No Known Allergies (Unverified , 04/21/18) Medications: see eMAR Patient NPO?: Yes NPO Date: Apr 25, 2018 NPO Time: 20:00 Past Medical History Cardiovascular: Reports: HTN; Denies: CAD, MS, valve dz, arrhythmia, other Pulmonary: Denies: asthma, COPD, [place], other Gastrointestinal/Genitourinary: Reports: other - Cholecystitis, ARF; Denies: GERD, CRI, ESRD Endocrine: Denies: DM, hypothyroidism, steroids, other HEENT: Denies: cataract (L), cataract (R), glaucoma, [place] (L), [place] (R), other Hematology/Immune: Reports: anemia; Denies: DVT, bleeding disorder, other Musculoskeletal/Integumentary: Denies: OA, RA, DJD, DDD, edema, other PMH Narrative: as above PSxH Narrative: see H & P Anesthesia Pre-op Phys. Exam Physician Exam Last Vital Signs Date Time Temp Pulse Resp B/P (MAP) Pulse Ox O2 Delivery O2 Flow Rate FiO2 04/29/18 09:00 122/81 04/29/18 08:00 98.0 86 19 98 04/28/18 21:00 Room Air 04/26/18 13:50 3 Constitutional: NAD Neurologic: CN 2-12 intact Cardiovascular: RRR Respiratory: CTA Gastrointestinal: S/NT/ND Airway Exam Mallampati Score: Class II MO: full Neck: no issues TMD: > 3 FB ROM: full Teeth: missing Dentures: upper, lower Anesthesia Pre-op A/P Labs Hematology Test 04/28/18 19:55 04/29/18 05:30 White Blood Count 11.9 K/UL (4.8-10.8) H 10.5 K/UL (4.8-10.8) Red Blood Count 2.72 M/UL (4.70-6.10) L 2.93 M/UL (4.70-6.10) L Hemoglobin 8.4 G/DL (14.2-18.0) L 9.1 G/DL (14.2-18.0) L Hematocrit 25.1 % (42.0-52.0) L 27.7 % (42.0-52.0) L Mean Corpuscular Volume 92 FL (80-99) 94 FL (80-99) Mean Corpuscular Hemoglobin 30.7 PG (27.0-31.0) 31.1 PG (27.0-31.0) H Mean Corpuscular Hemoglobin Concent 33.3 G/DL (32.0-36.0) 32.9 G/DL (32.0-36.0) Red Cell Distribution Width 13.7 % (11.6-14.8) 14.3 % (11.6-14.8) Platelet Count 175 K/UL (150-450) 181 K/UL (150-450) Mean Platelet Volume 7.5 FL (6.5-10.1) 7.8 FL (6.5-10.1) Neutrophils (%) (Auto) 83.2 % (45.0-75.0) H 76.7 % (45.0-75.0) H Lymphocytes (%) (Auto) 7.1 % (20.0-45.0) L 10.0 % (20.0-45.0) L Monocytes (%) (Auto) 4.7 % (1.0-10.0) 5.2 % (1.0-10.0) Eosinophils (%) (Auto) 4.2 % (0.0-3.0) H 7.1 % (0.0-3.0) H Basophils (%) (Auto) 0.7 % (0.0-2.0) 1.0 % (0.0-2.0) Coagulation Test 04/29/18 05:30 Prothrombin Time 13.2 SEC (9.30-11.50) H Prothromb Time International Ratio 1.3 (0.9-1.1) H Activated Partial Thromboplast Time 35 SEC (23-33) H Chemistry Test 04/29/18 05:30 Sodium Level 145 MMOL/L (136-145) Potassium Level 4.6 MMOL/L (3.5-5.1) Chloride Level 114 MMOL/L (98-107) H Carbon Dioxide Level 21 MMOL/L (21-32) Anion Gap 10 mmol/L (5-15) Blood Urea Nitrogen 7 mg/dL (7-18) Creatinine 1.3 MG/DL (0.55-1.30) Estimat Glomerular Filtration Rate 55.9 mL/min (>60) Glucose Level 128 MG/DL (74-106) H Uric Acid 3.0 MG/DL (2.6-7.2) Calcium Level 8.8 MG/DL (8.5-10.1) Phosphorus Level 1.3 MG/DL (2.5-4.9) L Magnesium Level 1.5 MG/DL (1.8-2.4) L Iron Level 45 ug/dL (50-175) L Total Iron Binding Capacity 151 ug/dL (250-450) L Percent Iron Saturation 30 % (15-50) Unsaturated Iron Binding 106 ug/dL (112-346) L Ferritin 477 NG/ML (8-388) H Total Bilirubin 0.6 MG/DL (0.2-1.0) Gamma Glutamyl Transpeptidase 125 U/L (5-85) H Aspartate Amino Transf (AST/SGOT) 14 U/L (15-37) L Alanine Aminotransferase (ALT/SGPT) 26 U/L (12-78) Alkaline Phosphatase 135 U/L (46-116) H Total Protein 6.6 G/DL (6.4-8.2) Albumin 2.9 G/DL (3.4-5.0) L Globulin 3.7 g/dL Albumin/Globulin Ratio 0.8 (1.0-2.7) L Lipase 800 U/L (73-393) H Vitamin B12 Level 319 PG/ML (193-986) Folate 37.0 NG/ML (8.6-58.9) Risk Assessment & Plan Assessment: ASA 3, ok to proceed Plan: MAC Status Change Before Surgery: No Pre-Antibiotics Given Within 1 Hr of Incision: Bhakti Mcelroy CRNA Apr 29, 2018 11:24
--- NOTE | 2018-04-29 11:26 | Immediate Post-Op Evaluation ---
Immediate Post-Op Evalulation Immediate Post-Op Evalulation Procedure: ERCP Date of Evaluation: Apr 29, 2018 Time of Evaluation: 11:18 IV Fluids: Ns 30 ml Blood Pressure Systolic: 165 Blood Pressure Diastolic: 87 Pulse Rate: 78 Respiratory Rate: 24 O2 Sat by Pulse Oximetry: 100 Temperature (Fahrenheit): 98.7 Pain Score (1-10): 0 Nausea: No Vomiting: No Complications none Patient Status: awake, reacts, patent Hydration Status: adequate Given Within 1 Hr of Incision: Bhakti Mcelroy CRNA Apr 29, 2018 11:26
--- NOTE | 2018-04-29 11:43 | Endoscopy Procedure Note ---
Endoscopy Procedure Note General Indication for Procedure: gib Procedures Performed: EGD Operative Findings/Diagnosis: gastritis Specimen: yes Pt Tolerated Procedure Well: Yes Estimated Blood Loss: none Anesthesia Anesthesiologist: vashti Anesthesia: MAC Inserted Devices Implant(s) used?: No GI Core Measures 50 yrs or older w/o bx or poly: Not Applicable 10yrs. F/U not recommended: Not Applicable León Lambert MD Apr 29, 2018 11:43
--- NOTE | 2018-04-29 11:54 | Nephrology Progress Note ---
Assessment/Plan Problem List: (1) JONA (acute kidney injury) Assessment: Cr lowering (2) Gallstone pancreatitis (3) Anemia (4) Dehydration (5) Hypovolemic shock (6) Diabetes Assessment: with elevated HgbA1c Assessment new complain of rectal bleed and dark stool Plan K mag phos supplement as needed adjust BP meds- consider transfusion as needed Monitor renal parameters Monitor CPK Antibiotics per ID avoid nephrotoxics per GI Subjective ROS Limited/Unobtainable: No Constitutional: Reports: malaise Objective Objective Last 24 Hour Vital Signs Date Time Temp Pulse Resp B/P (MAP) Pulse Ox O2 Delivery O2 Flow Rate FiO2 04/29/18 11:39 80 18 174/90 100 Room Air 04/29/18 11:28 79 18 170/89 100 Room Air 04/29/18 11:26 78 24 100 04/29/18 11:23 77 18 165/86 100 Nasal Cannula 2 04/29/18 11:18 98.7 77 18 165/87 100 Nasal Cannula 2 04/29/18 09:00 122/81 04/29/18 08:00 98.0 86 19 122/81 (95) 98 04/29/18 04:00 98.4 72 20 112/68 (83) 99 04/29/18 00:00 99.0 70 20 137/62 (87) 99 04/28/18 21:00 Room Air 04/28/18 20:00 98.2 82 20 139/85 (103) 98 04/28/18 16:00 98.7 79 20 117/73 (88) 100 79 04/28/18 12:00 98.3 81 18 146/83 (104) 100 81 Intake and Output 04/28/18 04/29/18 18:59 06:59 Intake Total 120 ml 335.0 ml Output Total 1250 ml Balance 120 ml -915.0 ml Intake Oral 120 ml IV Total 335.0 ml Output Urine Total 1250 ml # Voids 2 4 # Bowel Movements 1 Laboratory Tests 04/28/18 19:55: White Blood Count 11.9H, Red Blood Count 2.72L, Hemoglobin 8.4L, Hematocrit 25.1L, Mean Corpuscular Volume 92, Mean Corpuscular Hemoglobin 30.7, Mean Corpuscular Hemoglobin Concent 33.3, Red Cell Distribution Width 13.7, Platelet Count 175, Mean Platelet Volume 7.5, Neutrophils (%) (Auto) 83.2H, Lymphocytes ( %) (Auto) 7.1L, Monocytes (%) (Auto) 4.7, Eosinophils (%) (Auto) 4.2H, Basophils (%) (Auto) 0.7 04/29/18 05:30: White Blood Count 10.5, Red Blood Count 2.93L, Hemoglobin 9.1L, Hematocrit 27.7L , Mean Corpuscular Volume 94, Mean Corpuscular Hemoglobin 31.1H, Mean Corpuscular Hemoglobin Concent 32.9, Red Cell Distribution Width 14.3, Platelet Count 181, Mean Platelet Volume 7.8, Neutrophils (%) (Auto) 76.7H, Lymphocytes ( %) (Auto) 10.0L, Monocytes (%) (Auto) 5.2, Eosinophils (%) (Auto) 7.1H, Basophils (%) (Auto) 1.0, Prothrombin Time 13.2H, Prothromb Time International Ratio 1.3H, Activated Partial Thromboplast Time 35H, Sodium Level 145, Potassium Level 4.6, Chloride Level 114H, Carbon Dioxide Level 21, Anion Gap 10 , Blood Urea Nitrogen 7, Creatinine 1.3, Estimat Glomerular Filtration Rate 55.9 , Glucose Level 128H, Uric Acid 3.0, Calcium Level 8.8, Phosphorus Level 1.3L, Magnesium Level 1.5L, Iron Level 45L, Total Iron Binding Capacity 151L, Percent Iron Saturation 30, Unsaturated Iron Binding 106L, Ferritin 477H, Total Bilirubin 0.6, Gamma Glutamyl Transpeptidase 125H, Aspartate Amino Transf (AST/ SGOT) 14L, Alanine Aminotransferase (ALT/SGPT) 26, Alkaline Phosphatase 135H, Total Protein 6.6, Albumin 2.9L, Globulin 3.7, Albumin/Globulin Ratio 0.8L, Lipase 800H, Vitamin B12 Level 319, Folate 37.0 Height (Feet): 5 Height (Inches): 5.00 Weight (Pounds): 106 General Appearance: no apparent distress Cardiovascular: normal rate Respiratory/Chest: decreased breath sounds Abdomen: soft Objective no change Orlin Berrios MD Apr 29, 2018 11:54
--- NOTE | 2018-04-29 12:04 | Infectious Diseases Prog Note ---
Assessment/Plan Assessment/Plan A; 1. Sepsis resolved 2.Cholelithiasis/Choledocholithiasis s/p ERCP 3. Leukocytosis. resolved 4. acute renal failure, improving 5. Elevated transaminase. 6. Diabetes mellitus. 7. Hypertension. 8. Lactic acidosis. 9. Pancreatitis 10. Diarrhea, negative C. difficile test 11. GI Bleeding 12. Gastritis P: Continue Zosyn Elective Cholecystectomy as suggested by surgeon Subjective ROS Limited/Unobtainable: No Constitutional: Reports: no symptoms Respiratory: Reports: no symptoms Gastrointestinal/Abdominal: Reports: no symptoms, other - had EGD today Genitourinary: Reports: no symptoms Allergies: Coded Allergies: No Known Allergies (Unverified , 04/21/18) Objective Vital Signs Last 24 Hour Vital Signs Date Time Temp Pulse Resp B/P (MAP) Pulse Ox O2 Delivery O2 Flow Rate FiO2 04/29/18 11:39 80 18 174/90 100 Room Air 04/29/18 11:28 79 18 170/89 100 Room Air 04/29/18 11:26 78 24 100 04/29/18 11:23 77 18 165/86 100 Nasal Cannula 2 04/29/18 11:18 98.7 77 18 165/87 100 Nasal Cannula 2 04/29/18 09:00 122/81 04/29/18 08:00 98.0 86 19 122/81 (95) 98 04/29/18 04:00 98.4 72 20 112/68 (83) 99 04/29/18 00:00 99.0 70 20 137/62 (87) 99 04/28/18 21:00 Room Air 04/28/18 20:00 98.2 82 20 139/85 (103) 98 04/28/18 16:00 98.7 79 20 117/73 (88) 100 79 Height (Feet): 5 Height (Inches): 5.00 Weight (Pounds): 106 General Appearance: no acute distress HEENT: mucous membranes moist Respiratory/Chest: lungs clear Cardiovascular: normal rate Abdomen: soft, non tender Extremities: no edema Neurologic/Psychiatric: alert, responsive Microbiology Date/Time Source Procedure Growth Status 04/28/18 06:05 Stool Clostridium difficile Toxin Assay - Final Complete Laboratory Tests Test 04/28/18 19:55 04/29/18 05:30 White Blood Count 11.9 K/UL (4.8-10.8) H 10.5 K/UL (4.8-10.8) Red Blood Count 2.72 M/UL (4.70-6.10) L 2.93 M/UL (4.70-6.10) L Hemoglobin 8.4 G/DL (14.2-18.0) L 9.1 G/DL (14.2-18.0) L Hematocrit 25.1 % (42.0-52.0) L 27.7 % (42.0-52.0) L Mean Corpuscular Volume 92 FL (80-99) 94 FL (80-99) Mean Corpuscular Hemoglobin 30.7 PG (27.0-31.0) 31.1 PG (27.0-31.0) H Mean Corpuscular Hemoglobin Concent 33.3 G/DL (32.0-36.0) 32.9 G/DL (32.0-36.0) Red Cell Distribution Width 13.7 % (11.6-14.8) 14.3 % (11.6-14.8) Platelet Count 175 K/UL (150-450) 181 K/UL (150-450) Mean Platelet Volume 7.5 FL (6.5-10.1) 7.8 FL (6.5-10.1) Neutrophils (%) (Auto) 83.2 % (45.0-75.0) H 76.7 % (45.0-75.0) H Lymphocytes (%) (Auto) 7.1 % (20.0-45.0) L 10.0 % (20.0-45.0) L Monocytes (%) (Auto) 4.7 % (1.0-10.0) 5.2 % (1.0-10.0) Eosinophils (%) (Auto) 4.2 % (0.0-3.0) H 7.1 % (0.0-3.0) H Basophils (%) (Auto) 0.7 % (0.0-2.0) 1.0 % (0.0-2.0) Prothrombin Time 13.2 SEC (9.30-11.50) H Prothromb Time International Ratio 1.3 (0.9-1.1) H Activated Partial Thromboplast Time 35 SEC (23-33) H Sodium Level 145 MMOL/L (136-145) Potassium Level 4.6 MMOL/L (3.5-5.1) Chloride Level 114 MMOL/L (98-107) H Carbon Dioxide Level 21 MMOL/L (21-32) Anion Gap 10 mmol/L (5-15) Blood Urea Nitrogen 7 mg/dL (7-18) Creatinine 1.3 MG/DL (0.55-1.30) Estimat Glomerular Filtration Rate 55.9 mL/min (>60) Glucose Level 128 MG/DL (74-106) H Uric Acid 3.0 MG/DL (2.6-7.2) Calcium Level 8.8 MG/DL (8.5-10.1) Phosphorus Level 1.3 MG/DL (2.5-4.9) L Magnesium Level 1.5 MG/DL (1.8-2.4) L Iron Level 45 ug/dL (50-175) L Total Iron Binding Capacity 151 ug/dL (250-450) L Percent Iron Saturation 30 % (15-50) Unsaturated Iron Binding 106 ug/dL (112-346) L Ferritin 477 NG/ML (8-388) H Total Bilirubin 0.6 MG/DL (0.2-1.0) Gamma Glutamyl Transpeptidase 125 U/L (5-85) H Aspartate Amino Transf (AST/SGOT) 14 U/L (15-37) L Alanine Aminotransferase (ALT/SGPT) 26 U/L (12-78) Alkaline Phosphatase 135 U/L (46-116) H Total Protein 6.6 G/DL (6.4-8.2) Albumin 2.9 G/DL (3.4-5.0) L Globulin 3.7 g/dL Albumin/Globulin Ratio 0.8 (1.0-2.7) L Lipase 800 U/L (73-393) H Vitamin B12 Level 319 PG/ML (193-986) Folate 37.0 NG/ML (8.6-58.9) Current Medications Medications (Trade) Dose Ordered Sig/Jamal Route PRN Reason Start Time Stop Time Status Last Admin Dose Admin Acetaminophen (Tylenol) 500 mg Q4H PRN ORAL Mild Pain/Temp > 100.5 04/24/18 14:00 05/23/18 13:59 Dextrose (Dextrose 50%) 25 ml Q30M PRN IV Hypoglycemia 04/24/18 14:00 05/21/18 10:59 Dextrose (Dextrose 50%) 50 ml Q30M PRN IV Hypoglycemia 04/24/18 14:00 05/21/18 10:59 Folic Acid (Folate) 3 mg DAILY ORAL 04/25/18 09:00 05/22/18 17:14 04/28/18 09:43 Hydralazine HCl (Apresoline) 25 mg Q4H PRN ORAL bp over 160 syst 04/26/18 13:15 05/26/18 13:14 04/27/18 23:33 Insulin Aspart (NovoLOG) BEFORE MEALS AND HS SUBQ 04/24/18 16:30 05/21/18 11:29 04/28/18 12:38 Lisinopril (Zestril) 10 mg DAILY ORAL 04/29/18 09:00 05/28/18 08:59 Magnesium Sulfate 100 ml @ 100 mls/hr Q1H IVPB 04/29/18 12:00 04/29/18 15:59 Pantoprazole 80 mg/Sodium Chloride 250 ml @ 25 mls/hr Q10H IV 04/28/18 19:30 05/28/18 19:29 04/29/18 06:37 Piperacillin Sod/ Tazobactam Sod 3.375 gm/Dextrose 110 ml @ 27.5 mls/hr EVERY 8 HOURS IVPB 04/24/18 14:00 05/03/18 13:59 04/29/18 06:36 Potassium Chloride (K-Dur) 40 meq TWICE A DAY ORAL 04/27/18 18:00 05/27/18 17:59 04/28/18 17:20 Sodium Phosphate 30 mm/Sodium Chloride 285 ml @ 47.5 mls/hr ONCE ONCE IVPB 04/29/18 16:00 04/29/18 21:59 Thai Hale MD Apr 29, 2018 12:04
[2018-04-29] MEDS ORDERED: Tubing IV Secondary IV ONE (15:35)
[2018-04-29] MEDS ORDERED: NS 500ML ONE (15:35)
[2018-04-29] MEDS ORDERED: Sodium Phosphate 30 MM in NS 275 ML IVPB ONE (16:00)
--- NOTE | 2018-04-29 16:18 | General Progress Note ---
Assessment/Plan Assessment/Plan Assessment and Recs: # Anemia of chronic disease - likely multifactorial and h/h has been relatively stable --> Anemia workup has been ordered --> No evidence of hemolysis is noted, peripheral smear has been reviewed. --> Hgb goal >7. Transfuse prn. --> Epogen or iron at this time is not particularly indicated # Thrombocytopenia likely due to liver disease/cirrhosis-->resolved --> Medications have been reviewed --> if the plt count less than 10k, transfuse immediately. If less than 20k and febrile, transfuse --> If less than 50k and bleeding, transfuse. If neurosurgical bleed, transfuse as well # Sepsis - continue antibiotics with ID service, appreciate recs --> likely due to gallstone pancreatitis # Dehydration --> per renal # Choledocholithiasis with acute cholecystitis --> ERCP to be scheduled 04/26 # Acute cholecystitis --> bowel regime, ppi --> surg following The timing of this note does not necessarily reflect the time of the patient was seen. Greatly appreciate consultation! Subjective Constitutional: Denies: no symptoms, chills, diaphoresis, fever, malaise, weakness, other HEENT: Denies: no symptoms, eye pain, blurred vision, tearing, double vision, ear pain, ear discharge, nose pain, nose congestion, throat pain, throat swelling, mouth pain, mouth swelling, other Cardiovascular: Denies: no symptoms, chest pain, edema, irregular heart rate, lightheadedness, palpitations, syncope, other Respiratory: Denies: no symptoms, cough, orthopnea, shortness of breath, SOB with excertion, SOB at rest, sputum, stridor, wheezing, other Gastrointestinal/Abdominal: Denies: no symptoms, abdomen distended, abdominal pain, black stools, tarry stools, blood in stool, constipated, diarrhea, difficulty swallowing, nausea, poor appetite, poor fluid intake, rectal bleeding , vomiting, other Genitourinary: Denies: no symptoms, burning, discharge, frequency, flank pain, hematuria, incontinence, pain, urgency, other Neurologic/Psychiatric: Denies: no symptoms, anxiety, depressed, emotional problems, headache, numbness, paresthesia, pre-existing deficit, seizure, tingling, tremors, weakness, other Endocrine: Denies: no symptoms, excessive sweating, flushing, intolerance to cold, intolerance to heat, increased hunger, increased thirst, increased urine, unexplained weight gain, unexplained weight loss, other Hematologic/Lymphatic: Denies: no symptoms, anemia, easy bleeding, easy bruising, other Allergies: Coded Allergies: No Known Allergies (Unverified , 04/21/18) Subjective 04/26: seen by bedside, awake,comfortable, no acute events, pending ERCP today 04/27: seen by bedside,awake, comfortable, abdominal pain resolved, s/p ercp with stone extraction, pancreatitis resolving 04/28: EGD scheduled for tomorrow, no acute distress. 04/29: Patient had EGD today, awake alert and oriented, no acute distress reported. Objective Last 24 Hour Vital Signs Date Time Temp Pulse Resp B/P (MAP) Pulse Ox O2 Delivery O2 Flow Rate FiO2 04/29/18 13:51 97.9 74 17 91/52 (65) 98 04/29/18 11:39 80 18 174/90 100 Room Air 04/29/18 11:28 79 18 170/89 100 Room Air 04/29/18 11:26 78 24 100 04/29/18 11:23 77 18 165/86 100 Nasal Cannula 2 04/29/18 11:18 98.7 77 18 165/87 100 Nasal Cannula 2 04/29/18 09:00 122/81 04/29/18 09:00 Room Air 04/29/18 08:00 98.0 86 19 122/81 (95) 98 04/29/18 04:00 98.4 72 20 112/68 (83) 99 04/29/18 00:00 99.0 70 20 137/62 (87) 99 04/28/18 21:00 Room Air 04/28/18 20:00 98.2 82 20 139/85 (103) 98 Intake and Output 04/28/18 04/29/18 19:00 07:00 Intake Total 120 ml 387.5 ml Output Total 1250 ml Balance 120 ml -862.5 ml Intake Oral 120 ml IV Total 387.5 ml Output Urine Total 1250 ml # Voids 2 4 # Bowel Movements 1 Laboratory Tests 04/28/18 19:55: White Blood Count 11.9H, Red Blood Count 2.72L, Hemoglobin 8.4L, Hematocrit 25.1L, Mean Corpuscular Volume 92, Mean Corpuscular Hemoglobin 30.7, Mean Corpuscular Hemoglobin Concent 33.3, Red Cell Distribution Width 13.7, Platelet Count 175, Mean Platelet Volume 7.5, Neutrophils (%) (Auto) 83.2H, Lymphocytes ( %) (Auto) 7.1L, Monocytes (%) (Auto) 4.7, Eosinophils (%) (Auto) 4.2H, Basophils (%) (Auto) 0.7 04/29/18 05:30: White Blood Count 10.5, Red Blood Count 2.93L, Hemoglobin 9.1L, Hematocrit 27.7L , Mean Corpuscular Volume 94, Mean Corpuscular Hemoglobin 31.1H, Mean Corpuscular Hemoglobin Concent 32.9, Red Cell Distribution Width 14.3, Platelet Count 181, Mean Platelet Volume 7.8, Neutrophils (%) (Auto) 76.7H, Lymphocytes ( %) (Auto) 10.0L, Monocytes (%) (Auto) 5.2, Eosinophils (%) (Auto) 7.1H, Basophils (%) (Auto) 1.0, Prothrombin Time 13.2H, Prothromb Time International Ratio 1.3H, Activated Partial Thromboplast Time 35H, Sodium Level 145, Potassium Level 4.6, Chloride Level 114H, Carbon Dioxide Level 21, Anion Gap 10 , Blood Urea Nitrogen 7, Creatinine 1.3, Estimat Glomerular Filtration Rate 55.9 , Glucose Level 128H, Uric Acid 3.0, Calcium Level 8.8, Phosphorus Level 1.3L, Magnesium Level 1.5L, Iron Level 45L, Total Iron Binding Capacity 151L, Percent Iron Saturation 30, Unsaturated Iron Binding 106L, Ferritin 477H, Total Bilirubin 0.6, Gamma Glutamyl Transpeptidase 125H, Aspartate Amino Transf (AST/ SGOT) 14L, Alanine Aminotransferase (ALT/SGPT) 26, Alkaline Phosphatase 135H, Total Protein 6.6, Albumin 2.9L, Globulin 3.7, Albumin/Globulin Ratio 0.8L, Lipase 800H, Vitamin B12 Level 319, Folate 37.0 Height (Feet): 5 Height (Inches): 5.00 Weight (Pounds): 106 Objective General Appearance: well appearing, no apparent distress, alert, thin Respiratory: normal breath sounds, no respiratory distress Cardiovascular: normal rate Gastrointestinal: normal inspection, non tender, soft Genitourinary: deferred Musculoskeletal: normal inspection, back normal Neurologic: normal inspection, alert, oriented x3, responsive Guero Hernandez MD Apr 29, 2018 16:18
--- NOTE | 2018-04-29 21:03 | Cardiology Progress Note ---
Assessment/Plan Assessment/Plan 1. Septic shock, resolved, continue hydration. Echo reveals normal LV systolic and diastolic function. 2. JONA, creatinine stable at 1.3. 3. History of diabetes mellitus. 4. Hypertension, fluctuating continue lisinopril, add amlodipine low dose. Hydralazine as needed. 5. Gallstone pancreatitis. Subjective Subjective No cardiac events noted. Clinically the same. Objective Last 24 Hour Vital Signs Date Time Temp Pulse Resp B/P (MAP) Pulse Ox O2 Delivery O2 Flow Rate FiO2 04/29/18 16:00 98.2 74 18 147/73 (97) 98 04/29/18 13:51 97.9 74 17 91/52 (65) 98 04/29/18 11:39 80 18 174/90 100 Room Air 04/29/18 11:28 79 18 170/89 100 Room Air 04/29/18 11:26 78 24 100 04/29/18 11:23 77 18 165/86 100 Nasal Cannula 2 04/29/18 11:18 98.7 77 18 165/87 100 Nasal Cannula 2 04/29/18 09:00 122/81 04/29/18 09:00 Room Air 04/29/18 08:00 98.0 86 19 122/81 (95) 98 04/29/18 04:00 98.4 72 20 112/68 (83) 99 04/29/18 00:00 99.0 70 20 137/62 (87) 99 Intake and Output 04/28/18 04/29/18 19:00 07:00 Intake Total 120 ml 387.5 ml Output Total 1250 ml Balance 120 ml -862.5 ml Intake Oral 120 ml IV Total 387.5 ml Output Urine Total 1250 ml # Voids 2 4 # Bowel Movements 1 2D Echo: LVEF 55%, RVSP 42 mmHg Laboratory Tests Test 04/29/18 05:30 White Blood Count 10.5 K/UL (4.8-10.8) Red Blood Count 2.93 M/UL (4.70-6.10) L Hemoglobin 9.1 G/DL (14.2-18.0) L Hematocrit 27.7 % (42.0-52.0) L Mean Corpuscular Volume 94 FL (80-99) Mean Corpuscular Hemoglobin 31.1 PG (27.0-31.0) H Mean Corpuscular Hemoglobin Concent 32.9 G/DL (32.0-36.0) Red Cell Distribution Width 14.3 % (11.6-14.8) Platelet Count 181 K/UL (150-450) Mean Platelet Volume 7.8 FL (6.5-10.1) Neutrophils (%) (Auto) 76.7 % (45.0-75.0) H Lymphocytes (%) (Auto) 10.0 % (20.0-45.0) L Monocytes (%) (Auto) 5.2 % (1.0-10.0) Eosinophils (%) (Auto) 7.1 % (0.0-3.0) H Basophils (%) (Auto) 1.0 % (0.0-2.0) Prothrombin Time 13.2 SEC (9.30-11.50) H Prothromb Time International Ratio 1.3 (0.9-1.1) H Activated Partial Thromboplast Time 35 SEC (23-33) H Sodium Level 145 MMOL/L (136-145) Potassium Level 4.6 MMOL/L (3.5-5.1) Chloride Level 114 MMOL/L (98-107) H Carbon Dioxide Level 21 MMOL/L (21-32) Anion Gap 10 mmol/L (5-15) Blood Urea Nitrogen 7 mg/dL (7-18) Creatinine 1.3 MG/DL (0.55-1.30) Estimat Glomerular Filtration Rate 55.9 mL/min (>60) Glucose Level 128 MG/DL (74-106) H Uric Acid 3.0 MG/DL (2.6-7.2) Calcium Level 8.8 MG/DL (8.5-10.1) Phosphorus Level 1.3 MG/DL (2.5-4.9) L Magnesium Level 1.5 MG/DL (1.8-2.4) L Iron Level 45 ug/dL (50-175) L Total Iron Binding Capacity 151 ug/dL (250-450) L Percent Iron Saturation 30 % (15-50) Unsaturated Iron Binding 106 ug/dL (112-346) L Ferritin 477 NG/ML (8-388) H Total Bilirubin 0.6 MG/DL (0.2-1.0) Gamma Glutamyl Transpeptidase 125 U/L (5-85) H Aspartate Amino Transf (AST/SGOT) 14 U/L (15-37) L Alanine Aminotransferase (ALT/SGPT) 26 U/L (12-78) Alkaline Phosphatase 135 U/L (46-116) H Total Protein 6.6 G/DL (6.4-8.2) Albumin 2.9 G/DL (3.4-5.0) L Globulin 3.7 g/dL Albumin/Globulin Ratio 0.8 (1.0-2.7) L Lipase 800 U/L (73-393) H Vitamin B12 Level 319 PG/ML (193-986) Folate 37.0 NG/ML (8.6-58.9) Microbiology Date/Time Source Procedure Growth Status 04/28/18 06:05 Stool Clostridium difficile Toxin Assay - Final Complete Objective HEENT: Atraumatic, normocephalic. ENT, pupils are equal, round, and reactive to light and accommodation. Extraocular muscles intact. NECK: JVP less than 5 cm. No carotid bruit. Carotid upstrokes 2+ bilaterally. CARDIOVASCULAR SYSTEM: Normal S1, S2. Regular rate and rhythm. No murmurs, gallops, or rubs. PMI is at fourth intercostal space at midclavicular line. LUNGS: Clear to auscultation bilaterally. ABDOMEN: Soft, nontender, and nondistended. No hepatosplenomegaly. Positive bowel sounds. EXTREMITIES: No evidence of edema, clubbing, or cyanosis. Alvaro Hargrove MD Apr 29, 2018 21:03
[2018-04-30] VITALS: BP 141/77
[2018-04-30] MEDS: Pantoprazole 80 MG in NS 250 ML IV SCH ×3 (01:32→22:00)
[2018-04-30 04:00] VITALS: BP 137/64
[2018-04-30] MEDS: Piperacillin/Tazobactam 3.375 GM in D5W 110 ML IVPB SCH (05:18)
[2018-04-30] MEDS: NovoLOG Insulin Flexpen SUBQ SCH ×4 (06:30→22:05)
[2018-04-30 06:58] LABS: ANION GAP 9 mmol/L (5-15); BLOOD UREA NITROGEN 5 mg/dL (7-18); CALCIUM 7.8 MG/DL (8.5-10.1); CARBON DIOXIDE 21 MMOL/L (21-32); CHLORIDE 114 MMOL/L (98-107); CREATININE 1.3 MG/DL (0.55-1.30); SODIUM 144 MMOL/L (136-145)
[2018-04-30 08:00] VITALS: BP 115/83
[2018-04-30 08:00] LABS: HEMATOCRIT 22.9 % (42.0-52.0); HEMOGLOBIN 7.6 G/DL (14.2-18.0); MEAN CORPUSCULAR VOLUME 94 FL (80-99); PLATELET COUNT 164 K/UL (150-450); RED BLOOD COUNT 2.44 M/UL (4.70-6.10); RED CELL DISTRIBUTION WIDTH 14.1 % (11.6-14.8); WHITE BLOOD COUNT 8.3 K/UL (4.8-10.8)
[2018-04-30] MEDS: Lisinopril 10mg tab ORAL SCH (08:53)
--- NOTE | 2018-04-30 08:57 | 48 Hour Post Anesthesia Eval ---
Post Anesthesia Evaluation Procedure: ERCP Date of Evaluation: Apr 30, 2018 Time of Evaluation: 08:56 Blood Pressure Systolic: 115 0: 83 Pulse Rate: 76 Respiratory Rate: 18 Temperature (Fahrenheit): 97.9 O2 Sat by Pulse Oximetry: 99 Airway: patent Nausea: No Vomiting: No Pain Intensity: 0 Hydration Status: adequate Cardiopulmonary Status: stable Mental Status/LOC: patient returned to baseline Follow-up Care/Observations: per hospitalist Post-Anesthesia Complications: none Follow-up care needed: N/A Bhakti Thurman CRNA Apr 30, 2018 08:57
--- NOTE | 2018-04-30 10:40 | General Progress Note ---
Assessment/Plan Problem List: (1) Diabetes ICD Codes: E11.9 - Type 2 diabetes mellitus without complications SNOMED: 15358035 (2) Gallstone pancreatitis ICD Codes: K85.10 - Biliary acute pancreatitis without necrosis or infection SNOMED: 15840628 (3) Anemia ICD Codes: D64.9 - Anemia, unspecified SNOMED: 786286573 (4) Choledocholithiasis with acute cholecystitis ICD Codes: K80.42 - Calculus of bile duct with acute cholecystitis without obstruction SNOMED: 66026476 Assessment/Plan s/p EGd and ERCP no active recurrent bleed on diet fu labs Subjective ROS Limited/Unobtainable: Yes Allergies: Coded Allergies: No Known Allergies (Unverified , 04/21/18) Subjective one episode of diarrhea Objective Last 24 Hour Vital Signs Date Time Temp Pulse Resp B/P (MAP) Pulse Ox O2 Delivery O2 Flow Rate FiO2 04/30/18 08:57 76 18 99 04/30/18 08:53 115/83 04/30/18 08:52 76 115/83 04/30/18 08:00 97.9 76 18 115/83 (94) 99 04/30/18 04:00 98.0 66 18 137/64 (88) 98 04/30/18 00:00 98.5 70 18 141/77 (98) 100 04/29/18 21:26 68 131/62 04/29/18 21:00 Room Air 04/29/18 20:00 98.6 68 20 131/62 (85) 100 04/29/18 16:00 98.2 74 18 147/73 (97) 98 04/29/18 13:51 97.9 74 17 91/52 (65) 98 04/29/18 11:39 80 18 174/90 100 Room Air 04/29/18 11:28 79 18 170/89 100 Room Air 04/29/18 11:26 78 24 100 04/29/18 11:23 77 18 165/86 100 Nasal Cannula 2 04/29/18 11:18 98.7 77 18 165/87 100 Nasal Cannula 2 Intake and Output 04/29/18 04/30/18 19:00 07:00 Intake Total 717.5 ml 432.5 ml Output Total 875 ml Balance -157.5 ml 432.5 ml Intake Oral 100 ml IV Total 717.5 ml 332.5 ml Output Urine Total 875 ml # Voids 2 2 # Bowel Movements 1 Laboratory Tests 04/30/18 05:55: White Blood Count 8.3, Red Blood Count 2.44L, Hemoglobin 7.6L, Hematocrit 22.9L , Mean Corpuscular Volume 94, Mean Corpuscular Hemoglobin 31.0, Mean Corpuscular Hemoglobin Concent 33.1, Red Cell Distribution Width 14.1, Platelet Count 164, Mean Platelet Volume 7.9, Neutrophils (%) (Auto) , Lymphocytes (%) ( Auto) , Monocytes (%) (Auto) , Eosinophils (%) (Auto) , Basophils (%) (Auto) , Differential Total Cells Counted 100, Neutrophils % (Manual) 67, Lymphocytes % ( Manual) 17L, Monocytes % (Manual) 3, Eosinophils % (Manual) 12H, Basophils % ( Manual) 1, Band Neutrophils 0, Platelet Estimate Adequate, Platelet Morphology Normal, Anisocytosis 1+, Sodium Level 144, Potassium Level 4.0, Chloride Level 114H, Carbon Dioxide Level 21, Anion Gap 9, Blood Urea Nitrogen 5L, Creatinine 1.3, Estimat Glomerular Filtration Rate 55.9, Glucose Level 191H, Calcium Level 7.8L Height (Feet): 5 Height (Inches): 5.00 Weight (Pounds): 106 General Appearance: alert EENT: normal ENT inspection Neck: supple Cardiovascular: normal rate Respiratory/Chest: decreased breath sounds Abdomen: normal bowel sounds, non tender, soft Extremities: non-tender León Lambert MD Apr 30, 2018 10:40
--- NOTE | 2018-04-30 10:47 | Infectious Diseases Prog Note ---
Assessment/Plan Assessment/Plan A; 1. Sepsis resolved 2.Cholelithiasis/Choledocholithiasis s/p ERCP 3. Leukocytosis. resolved 4. acute renal failure, improving 5. Elevated transaminase. 6. Diabetes mellitus. 7. Hypertension. 8. Lactic acidosis. 9. Pancreatitis 10. Diarrhea, negative C. difficile test 11. GI Bleeding 12. Gastritis P: Discontinue Zosyn Observe off antibiotic Elective Cholecystectomy as suggested by surgeon Subjective ROS Limited/Unobtainable: No Constitutional: Reports: no symptoms Respiratory: Reports: no symptoms Cardiovascular: Reports: no symptoms Gastrointestinal/Abdominal: Reports: no symptoms Genitourinary: Reports: no symptoms Allergies: Coded Allergies: No Known Allergies (Unverified , 04/21/18) Objective Vital Signs Last 24 Hour Vital Signs Date Time Temp Pulse Resp B/P (MAP) Pulse Ox O2 Delivery O2 Flow Rate FiO2 04/30/18 08:57 76 18 99 04/30/18 08:53 115/83 04/30/18 08:52 76 115/83 04/30/18 08:00 97.9 76 18 115/83 (94) 99 04/30/18 04:00 98.0 66 18 137/64 (88) 98 04/30/18 00:00 98.5 70 18 141/77 (98) 100 04/29/18 21:26 68 131/62 04/29/18 21:00 Room Air 04/29/18 20:00 98.6 68 20 131/62 (85) 100 04/29/18 16:00 98.2 74 18 147/73 (97) 98 04/29/18 13:51 97.9 74 17 91/52 (65) 98 04/29/18 11:39 80 18 174/90 100 Room Air 04/29/18 11:28 79 18 170/89 100 Room Air 04/29/18 11:26 78 24 100 04/29/18 11:23 77 18 165/86 100 Nasal Cannula 2 04/29/18 11:18 98.7 77 18 165/87 100 Nasal Cannula 2 Height (Feet): 5 Height (Inches): 5.00 Weight (Pounds): 106 HEENT: mucous membranes moist Respiratory/Chest: lungs clear Cardiovascular: normal rate Abdomen: soft, non tender Extremities: no edema Neurologic/Psychiatric: alert, responsive Microbiology Date/Time Source Procedure Growth Status 04/28/18 06:05 Stool Clostridium difficile Toxin Assay - Final Complete Laboratory Tests Test 04/30/18 05:55 White Blood Count 8.3 K/UL (4.8-10.8) Red Blood Count 2.44 M/UL (4.70-6.10) L Hemoglobin 7.6 G/DL (14.2-18.0) L Hematocrit 22.9 % (42.0-52.0) L Mean Corpuscular Volume 94 FL (80-99) Mean Corpuscular Hemoglobin 31.0 PG (27.0-31.0) Mean Corpuscular Hemoglobin Concent 33.1 G/DL (32.0-36.0) Red Cell Distribution Width 14.1 % (11.6-14.8) Platelet Count 164 K/UL (150-450) Mean Platelet Volume 7.9 FL (6.5-10.1) Neutrophils (%) (Auto) % (45.0-75.0) Lymphocytes (%) (Auto) % (20.0-45.0) Monocytes (%) (Auto) % (1.0-10.0) Eosinophils (%) (Auto) % (0.0-3.0) Basophils (%) (Auto) % (0.0-2.0) Differential Total Cells Counted 100 Neutrophils % (Manual) 67 % (45-75) Lymphocytes % (Manual) 17 % (20-45) L Monocytes % (Manual) 3 % (1-10) Eosinophils % (Manual) 12 % (0-3) H Basophils % (Manual) 1 % (0-2) Band Neutrophils 0 % (0-8) Platelet Estimate Adequate Platelet Morphology Normal Anisocytosis 1+ Sodium Level 144 MMOL/L (136-145) Potassium Level 4.0 MMOL/L (3.5-5.1) Chloride Level 114 MMOL/L (98-107) H Carbon Dioxide Level 21 MMOL/L (21-32) Anion Gap 9 mmol/L (5-15) Blood Urea Nitrogen 5 mg/dL (7-18) L Creatinine 1.3 MG/DL (0.55-1.30) Estimat Glomerular Filtration Rate 55.9 mL/min (>60) Glucose Level 191 MG/DL (74-106) H Calcium Level 7.8 MG/DL (8.5-10.1) L Current Medications Medications (Trade) Dose Ordered Sig/Jamal Route PRN Reason Start Time Stop Time Status Last Admin Dose Admin Acetaminophen (Tylenol) 500 mg Q4H PRN ORAL Mild Pain/Temp > 100.5 04/24/18 14:00 05/23/18 13:59 Amlodipine Besylate (Norvasc) 2.5 mg DAILY ORAL 04/29/18 21:04 05/29/18 21:03 04/29/18 21:26 Dextrose (Dextrose 50%) 25 ml Q30M PRN IV Hypoglycemia 04/24/18 14:00 05/21/18 10:59 Dextrose (Dextrose 50%) 50 ml Q30M PRN IV Hypoglycemia 04/24/18 14:00 05/21/18 10:59 Folic Acid (Folate) 3 mg DAILY ORAL 04/25/18 09:00 05/22/18 17:14 04/30/18 08:49 Hydralazine HCl (Apresoline) 25 mg Q4H PRN ORAL bp over 160 syst 04/26/18 13:15 05/26/18 13:14 04/27/18 23:33 Insulin Aspart (NovoLOG) BEFORE MEALS AND HS SUBQ 04/24/18 16:30 05/21/18 11:29 04/30/18 06:30 Lisinopril (Zestril) 10 mg DAILY ORAL 04/29/18 09:00 05/28/18 08:59 Pantoprazole 80 mg/Sodium Chloride 250 ml @ 25 mls/hr Q10H IV 04/28/18 19:30 05/28/18 19:29 04/30/18 01:32 Piperacillin Sod/ Tazobactam Sod 3.375 gm/Dextrose 110 ml @ 27.5 mls/hr EVERY 8 HOURS IVPB 04/24/18 14:00 05/03/18 13:59 04/30/18 05:18 Potassium Chloride (K-Dur) 40 meq TWICE A DAY ORAL 04/27/18 18:00 05/27/18 17:59 04/30/18 08:49 Thai Hale MD Apr 30, 2018 10:47
[2018-04-30 12:00] VITALS: BP 133/73
--- NOTE | 2018-04-30 12:16 | General Progress Note ---
Assessment/Plan Problem List: (1) ARF (acute renal failure) ICD Codes: N17.9 - Acute kidney failure, unspecified SNOMED: 96610675 Qualifiers: Qualified Codes: N17.9 - Acute kidney failure, unspecified (2) Hypovolemic shock ICD Codes: R57.1 - Hypovolemic shock SNOMED: 34647156 (3) JONA (acute kidney injury) ICD Codes: N17.9 - Acute kidney failure, unspecified SNOMED: 61783237 Status: progressing Assessment/Plan arf resolved gallstones in cpb unstable for dc w rectal bleeding (large amount) endoscopy per dr randolph acute cholycystitis improving afebrile no abx per id anemia getting transfusion no melena check h/h Subjective ROS Limited/Unobtainable: Yes Allergies: Coded Allergies: No Known Allergies (Unverified , 04/21/18) Subjective general pain Objective Last 24 Hour Vital Signs Date Time Temp Pulse Resp B/P (MAP) Pulse Ox O2 Delivery O2 Flow Rate FiO2 04/30/18 08:57 76 18 99 04/30/18 08:53 115/83 04/30/18 08:52 76 115/83 04/30/18 08:00 97.9 76 18 115/83 (94) 99 04/30/18 04:00 98.0 66 18 137/64 (88) 98 04/30/18 00:00 98.5 70 18 141/77 (98) 100 04/29/18 21:26 68 131/62 04/29/18 21:00 Room Air 04/29/18 20:00 98.6 68 20 131/62 (85) 100 04/29/18 16:00 98.2 74 18 147/73 (97) 98 04/29/18 13:51 97.9 74 17 91/52 (65) 98 Intake and Output 04/29/18 04/30/18 19:00 07:00 Intake Total 717.5 ml 432.5 ml Output Total 875 ml Balance -157.5 ml 432.5 ml Intake Oral 100 ml IV Total 717.5 ml 332.5 ml Output Urine Total 875 ml # Voids 2 2 # Bowel Movements 1 Laboratory Tests 04/30/18 05:55: White Blood Count 8.3, Red Blood Count 2.44L, Hemoglobin 7.6L, Hematocrit 22.9L , Mean Corpuscular Volume 94, Mean Corpuscular Hemoglobin 31.0, Mean Corpuscular Hemoglobin Concent 33.1, Red Cell Distribution Width 14.1, Platelet Count 164, Mean Platelet Volume 7.9, Neutrophils (%) (Auto) , Lymphocytes (%) ( Auto) , Monocytes (%) (Auto) , Eosinophils (%) (Auto) , Basophils (%) (Auto) , Differential Total Cells Counted 100, Neutrophils % (Manual) 67, Lymphocytes % ( Manual) 17L, Monocytes % (Manual) 3, Eosinophils % (Manual) 12H, Basophils % ( Manual) 1, Band Neutrophils 0, Platelet Estimate Adequate, Platelet Morphology Normal, Anisocytosis 1+, Sodium Level 144, Potassium Level 4.0, Chloride Level 114H, Carbon Dioxide Level 21, Anion Gap 9, Blood Urea Nitrogen 5L, Creatinine 1.3, Estimat Glomerular Filtration Rate 55.9, Glucose Level 191H, Calcium Level 7.8L Height (Feet): 5 Height (Inches): 5.00 Weight (Pounds): 106 Cardiovascular: regular rhythm Respiratory/Chest: lungs clear Abdomen: soft Oksana Casey MD Apr 30, 2018 12:16
--- NOTE | 2018-04-30 14:51 | Surgery Progress Note ---
Surgery Progress Note Subjective Additional Comments had endoscopy yesterday. anemia. prbc today Objective Last 24 Hour Vital Signs Date Time Temp Pulse Resp B/P (MAP) Pulse Ox O2 Delivery O2 Flow Rate FiO2 04/30/18 08:57 76 18 99 04/30/18 08:53 115/83 04/30/18 08:52 76 115/83 04/30/18 08:00 97.9 76 18 115/83 (94) 99 04/30/18 04:00 98.0 66 18 137/64 (88) 98 04/30/18 00:00 98.5 70 18 141/77 (98) 100 04/29/18 21:26 68 131/62 04/29/18 21:00 Room Air 04/29/18 20:00 98.6 68 20 131/62 (85) 100 04/29/18 16:00 98.2 74 18 147/73 (97) 98 I&O Intake and Output 04/29/18 04/30/18 19:00 07:00 Intake Total 717.5 ml 432.5 ml Output Total 875 ml Balance -157.5 ml 432.5 ml Intake Oral 100 ml IV Total 717.5 ml 332.5 ml Output Urine Total 875 ml # Voids 2 2 # Bowel Movements 1 Drains: none Cardiovascular: RSR Respiratory: clear Abdomen: soft, flat, non-tender, non-distended Extremities: no cyanosis Laboratory Tests Test 04/30/18 05:55 White Blood Count 8.3 K/UL (4.8-10.8) Red Blood Count 2.44 M/UL (4.70-6.10) L Hemoglobin 7.6 G/DL (14.2-18.0) L Hematocrit 22.9 % (42.0-52.0) L Mean Corpuscular Volume 94 FL (80-99) Mean Corpuscular Hemoglobin 31.0 PG (27.0-31.0) Mean Corpuscular Hemoglobin Concent 33.1 G/DL (32.0-36.0) Red Cell Distribution Width 14.1 % (11.6-14.8) Platelet Count 164 K/UL (150-450) Mean Platelet Volume 7.9 FL (6.5-10.1) Neutrophils (%) (Auto) % (45.0-75.0) Lymphocytes (%) (Auto) % (20.0-45.0) Monocytes (%) (Auto) % (1.0-10.0) Eosinophils (%) (Auto) % (0.0-3.0) Basophils (%) (Auto) % (0.0-2.0) Differential Total Cells Counted 100 Neutrophils % (Manual) 67 % (45-75) Lymphocytes % (Manual) 17 % (20-45) L Monocytes % (Manual) 3 % (1-10) Eosinophils % (Manual) 12 % (0-3) H Basophils % (Manual) 1 % (0-2) Band Neutrophils 0 % (0-8) Platelet Estimate Adequate Platelet Morphology Normal Anisocytosis 1+ Sodium Level 144 MMOL/L (136-145) Potassium Level 4.0 MMOL/L (3.5-5.1) Chloride Level 114 MMOL/L (98-107) H Carbon Dioxide Level 21 MMOL/L (21-32) Anion Gap 9 mmol/L (5-15) Blood Urea Nitrogen 5 mg/dL (7-18) L Creatinine 1.3 MG/DL (0.55-1.30) Estimat Glomerular Filtration Rate 55.9 mL/min (>60) Glucose Level 191 MG/DL (74-106) H Calcium Level 7.8 MG/DL (8.5-10.1) L Plan Problems: (1) Acute cholecystitis Assessment & Plan: US with Distended urinary bladder. Torres catheter not visualized but present. Clinical evaluation is needed. Recommend removal of the Torres catheter and replacement. Mild pelvocaliectasis noted which is likely on the basis of the distended bladder. Suspected choledocholithiasis with the one or more stones in the distal common bile duct. Moderate biliary ductal dilatation demonstrated. Cholelithiasis with distention of the gallbladder and wall thickening. Leukocytosis Hypotensive shock Abnormal LFT's. Possible choledocholithiasis MRI reviewed. likely gallstone pancreatitis with choledocholithiasis. labs improving jennifer/lip improved s/p ercp with stone extration recovering. -diet as tolerated -Abx as per ID -no acute surgical intervention planned -elective cholecystectomy in 6 weeks. had significant acute pancreatitis with sepsis and would benefit from recovery for decreased inflammation prior to cholecystectomy -d/c planning -thank you for this consult. will follow with recs. (2) Hypovolemic shock (3) Rectal bleeding Assessment & Plan: hold discharge had blood in rectal vault and bloody BM discussed with GI plan for scope tomorrow Martin Sterling Apr 30, 2018 14:51
--- NOTE | 2018-04-30 15:15 | Procedure Note ---
DATE OF PROCEDURE: 04/29/2018 SURGEON: León Lambert M.D. PROCEDURE: Upper endoscopy with biopsy. ANESTHESIA: Per anesthesiologist. See anesthesia sheet. INSTRUMENT: Olympus adult flexible upper endoscope. INDICATION: GI bleeding. REASON FOR PROCEDURE: The procedure, risks, benefits, and possible consequences, including hemorrhage, aspiration, perforation and infection, and alternative treatments, were explained to the patient/legal guardian by Dr. León Lambert and the patient/legal guardian understood and accepted these risks. PROCEDURE IN DETAIL: After informed consent was obtained and the patient was adequately sedated, Olympus upper endoscope was advanced from the mouth into the second portion of duodenum and retroflexion was performed in the stomach. The patient has some retained semi-solid food material in the stomach making the examination somewhat limited but there was no evidence of an active upper GI bleeding. No blood or blood products was seen in the stomach. No esophageal or gastric varices. Random biopsy from antrum was obtained to rule out H. pylori infection. The patient tolerated the procedure well without complication. SUMMARY OF FINDINGS: Some retained food material in the stomach making examination somewhat limited, otherwise normal upper endoscopy examination. RECOMMENDATIONS: 1. Follow up biopsy results and treat accordingly. 2. Resume diet. León Lambert M.D. DR: Donna JOB#: [id number] CC:
[2018-04-30 16:00] VITALS: BP 158/78
--- NOTE | 2018-04-30 18:00 | Nephrology Progress Note ---
Assessment/Plan Problem List: (1) JONA (acute kidney injury) Assessment: Cr lowering (2) Gallstone pancreatitis (3) Anemia (4) Dehydration (5) Hypovolemic shock (6) Diabetes Assessment: with elevated HgbA1c Assessment new complain of rectal bleed and dark stool Plan being transfused K mag phos supplement as needed adjust BP meds- consider transfusion as needed Monitor renal parameters Monitor CPK Antibiotics per ID avoid nephrotoxics per GI Subjective ROS Limited/Unobtainable: No Objective Objective Last 24 Hour Vital Signs Date Time Temp Pulse Resp B/P (MAP) Pulse Ox O2 Delivery O2 Flow Rate FiO2 04/30/18 16:00 97.7 70 20 158/78 (104) 99 04/30/18 12:00 97.8 73 18 133/73 (93) 100 04/30/18 09:00 Room Air 04/30/18 08:57 76 18 99 04/30/18 08:53 115/83 04/30/18 08:52 76 115/83 04/30/18 08:00 97.9 76 18 115/83 (94) 99 04/30/18 04:00 98.0 66 18 137/64 (88) 98 04/30/18 00:00 98.5 70 18 141/77 (98) 100 04/29/18 21:26 68 131/62 04/29/18 21:00 Room Air 04/29/18 20:00 98.6 68 20 131/62 (85) 100 Intake and Output 04/29/18 04/30/18 19:00 07:00 Intake Total 717.5 ml 432.5 ml Output Total 875 ml Balance -157.5 ml 432.5 ml Intake Oral 100 ml IV Total 717.5 ml 332.5 ml Output Urine Total 875 ml # Voids 2 2 # Bowel Movements 1 Laboratory Tests 04/30/18 05:55: White Blood Count 8.3, Red Blood Count 2.44L, Hemoglobin 7.6L, Hematocrit 22.9L , Mean Corpuscular Volume 94, Mean Corpuscular Hemoglobin 31.0, Mean Corpuscular Hemoglobin Concent 33.1, Red Cell Distribution Width 14.1, Platelet Count 164, Mean Platelet Volume 7.9, Neutrophils (%) (Auto) , Lymphocytes (%) ( Auto) , Monocytes (%) (Auto) , Eosinophils (%) (Auto) , Basophils (%) (Auto) , Differential Total Cells Counted 100, Neutrophils % (Manual) 67, Lymphocytes % ( Manual) 17L, Monocytes % (Manual) 3, Eosinophils % (Manual) 12H, Basophils % ( Manual) 1, Band Neutrophils 0, Platelet Estimate Adequate, Platelet Morphology Normal, Anisocytosis 1+, Sodium Level 144, Potassium Level 4.0, Chloride Level 114H, Carbon Dioxide Level 21, Anion Gap 9, Blood Urea Nitrogen 5L, Creatinine 1.3, Estimat Glomerular Filtration Rate 55.9, Glucose Level 191H, Calcium Level 7.8L Height (Feet): 5 Height (Inches): 5.00 Weight (Pounds): 106 General Appearance: no apparent distress Cardiovascular: normal rate Respiratory/Chest: lungs clear Abdomen: soft Objective no change Orlin Berrios MD Apr 30, 2018 18:00
--- NOTE | 2018-04-30 18:25 | Cardiology Progress Note ---
Assessment/Plan Assessment/Plan 1. Septic shock, resolved, continue hydration. Echo reveals normal LV systolic and diastolic function. 2. JONA, creatinine stable at 1.3. 3. History of diabetes mellitus. 4. Hypertension, continue lisinopril and amlodipine low dose. Hydralazine as needed. 5. Gallstone pancreatitis. Subjective Subjective No cardiac events noted. Objective Last 24 Hour Vital Signs Date Time Temp Pulse Resp B/P (MAP) Pulse Ox O2 Delivery O2 Flow Rate FiO2 04/30/18 16:00 97.7 70 20 158/78 (104) 99 04/30/18 12:00 97.8 73 18 133/73 (93) 100 04/30/18 09:00 Room Air 04/30/18 08:57 76 18 99 04/30/18 08:53 115/83 04/30/18 08:52 76 115/83 04/30/18 08:00 97.9 76 18 115/83 (94) 99 04/30/18 04:00 98.0 66 18 137/64 (88) 98 04/30/18 00:00 98.5 70 18 141/77 (98) 100 04/29/18 21:26 68 131/62 04/29/18 21:00 Room Air 04/29/18 20:00 98.6 68 20 131/62 (85) 100 Intake and Output 04/29/18 04/30/18 18:59 06:59 Intake Total 745.0 ml 457.5 ml Output Total 875 ml Balance -130.0 ml 457.5 ml Intake Oral 100 ml IV Total 745.0 ml 357.5 ml Output Urine Total 875 ml # Voids 2 2 # Bowel Movements 1 2D Echo: LVEF 55%, RVSP 42 mmHg Laboratory Tests Test 04/30/18 05:55 White Blood Count 8.3 K/UL (4.8-10.8) Red Blood Count 2.44 M/UL (4.70-6.10) L Hemoglobin 7.6 G/DL (14.2-18.0) L Hematocrit 22.9 % (42.0-52.0) L Mean Corpuscular Volume 94 FL (80-99) Mean Corpuscular Hemoglobin 31.0 PG (27.0-31.0) Mean Corpuscular Hemoglobin Concent 33.1 G/DL (32.0-36.0) Red Cell Distribution Width 14.1 % (11.6-14.8) Platelet Count 164 K/UL (150-450) Mean Platelet Volume 7.9 FL (6.5-10.1) Neutrophils (%) (Auto) % (45.0-75.0) Lymphocytes (%) (Auto) % (20.0-45.0) Monocytes (%) (Auto) % (1.0-10.0) Eosinophils (%) (Auto) % (0.0-3.0) Basophils (%) (Auto) % (0.0-2.0) Differential Total Cells Counted 100 Neutrophils % (Manual) 67 % (45-75) Lymphocytes % (Manual) 17 % (20-45) L Monocytes % (Manual) 3 % (1-10) Eosinophils % (Manual) 12 % (0-3) H Basophils % (Manual) 1 % (0-2) Band Neutrophils 0 % (0-8) Platelet Estimate Adequate Platelet Morphology Normal Anisocytosis 1+ Sodium Level 144 MMOL/L (136-145) Potassium Level 4.0 MMOL/L (3.5-5.1) Chloride Level 114 MMOL/L (98-107) H Carbon Dioxide Level 21 MMOL/L (21-32) Anion Gap 9 mmol/L (5-15) Blood Urea Nitrogen 5 mg/dL (7-18) L Creatinine 1.3 MG/DL (0.55-1.30) Estimat Glomerular Filtration Rate 55.9 mL/min (>60) Glucose Level 191 MG/DL (74-106) H Calcium Level 7.8 MG/DL (8.5-10.1) L Microbiology Date/Time Source Procedure Growth Status 04/28/18 06:05 Stool Clostridium difficile Toxin Assay - Final Complete Objective HEENT: Atraumatic, normocephalic. ENT, pupils are equal, round, and reactive to light and accommodation. Extraocular muscles intact. NECK: JVP less than 5 cm. No carotid bruit. Carotid upstrokes 2+ bilaterally. CARDIOVASCULAR SYSTEM: Normal S1, S2. Regular rate and rhythm. No murmurs, gallops, or rubs. PMI is at fourth intercostal space at midclavicular line. LUNGS: Clear to auscultation bilaterally. ABDOMEN: Soft, nontender, and nondistended. No hepatosplenomegaly. Positive bowel sounds. EXTREMITIES: No evidence of edema, clubbing, or cyanosis. Alvaro Hargrove MD Apr 30, 2018 18:25
[2018-04-30 20:00] VITALS: BP 147/92
--- NOTE | 2018-04-30 20:44 | General Progress Note ---
Assessment/Plan Assessment/Plan Assessment and Recs: # Anemia of chronic disease - likely multifactorial and h/h has been relatively stable --> Anemia workup has been ordered --> No evidence of hemolysis is noted, peripheral smear has been reviewed. --> Hgb goal >7. Transfuse prn. --> Epogen or iron at this time is not particularly indicated # Thrombocytopenia likely due to liver disease/cirrhosis-->resolved --> Medications have been reviewed --> if the plt count less than 10k, transfuse immediately. If less than 20k and febrile, transfuse --> If less than 50k and bleeding, transfuse. If neurosurgical bleed, transfuse as well # Sepsis - continue antibiotics with ID service, appreciate recs --> likely due to gallstone pancreatitis # Dehydration --> per renal # Choledocholithiasis with acute cholecystitis --> ERCP to be scheduled 04/26 # Acute cholecystitis --> bowel regime, ppi --> surg following The timing of this note does not necessarily reflect the time of the patient was seen. Greatly appreciate consultation! Subjective Allergies: Coded Allergies: No Known Allergies (Unverified , 04/21/18) Subjective 04/26: seen by bedside, awake,comfortable, no acute events, pending ERCP today 04/27: seen by bedside,awake, comfortable, abdominal pain resolved, s/p ercp with stone extraction, pancreatitis resolving 04/28: EGD scheduled for tomorrow, no acute distress. 04/29: Patient had EGD today, awake alert and oriented, no acute distress reported 04/30: had endoscopy yesterday, received prbc, hgb 7.6 Objective Last 24 Hour Vital Signs Date Time Temp Pulse Resp B/P (MAP) Pulse Ox O2 Delivery O2 Flow Rate FiO2 04/30/18 20:00 98.2 110 20 147/92 (110) 99 04/30/18 16:00 97.7 70 20 158/78 (104) 99 04/30/18 12:00 97.8 73 18 133/73 (93) 100 04/30/18 09:00 Room Air 04/30/18 08:57 76 18 99 04/30/18 08:53 115/83 04/30/18 08:52 76 115/83 04/30/18 08:00 97.9 76 18 115/83 (94) 99 04/30/18 04:00 98.0 66 18 137/64 (88) 98 04/30/18 00:00 98.5 70 18 141/77 (98) 100 04/29/18 21:26 68 131/62 04/29/18 21:00 Room Air Intake and Output 04/29/18 04/30/18 19:00 07:00 Intake Total 717.5 ml 432.5 ml Output Total 875 ml Balance -157.5 ml 432.5 ml Intake Oral 100 ml IV Total 717.5 ml 332.5 ml Output Urine Total 875 ml # Voids 2 2 # Bowel Movements 1 Laboratory Tests 04/30/18 05:55: White Blood Count 8.3, Red Blood Count 2.44L, Hemoglobin 7.6L, Hematocrit 22.9L , Mean Corpuscular Volume 94, Mean Corpuscular Hemoglobin 31.0, Mean Corpuscular Hemoglobin Concent 33.1, Red Cell Distribution Width 14.1, Platelet Count 164, Mean Platelet Volume 7.9, Neutrophils (%) (Auto) , Lymphocytes (%) ( Auto) , Monocytes (%) (Auto) , Eosinophils (%) (Auto) , Basophils (%) (Auto) , Differential Total Cells Counted 100, Neutrophils % (Manual) 67, Lymphocytes % ( Manual) 17L, Monocytes % (Manual) 3, Eosinophils % (Manual) 12H, Basophils % ( Manual) 1, Band Neutrophils 0, Platelet Estimate Adequate, Platelet Morphology Normal, Anisocytosis 1+, Sodium Level 144, Potassium Level 4.0, Chloride Level 114H, Carbon Dioxide Level 21, Anion Gap 9, Blood Urea Nitrogen 5L, Creatinine 1.3, Estimat Glomerular Filtration Rate 55.9, Glucose Level 191H, Calcium Level 7.8L Height (Feet): 5 Height (Inches): 5.00 Weight (Pounds): 106 Objective General Appearance: well appearing, no apparent distress, alert, thin Respiratory: normal breath sounds, no respiratory distress Cardiovascular: normal rate Gastrointestinal: normal inspection, non tender, soft Genitourinary: deferred Musculoskeletal: normal inspection, back normal Neurologic: normal inspection, alert, oriented x3, responsive Guero Hernandez MD Apr 30, 2018 20:44
[2018-05-01] VITALS: BP 117/58
[2018-05-01 04:00] VITALS: BP 141/70
[2018-05-01] MEDS: NovoLOG Insulin Flexpen SUBQ SCH ×4 (07:02→20:54)
[2018-05-01 07:10] LABS: BASOPHILS % (AUTO) 0.6 % (0.0-2.0); EOSINOPHILS % (AUTO) 7.9 % (0.0-3.0); HEMATOCRIT 27.7 % (42.0-52.0); HEMOGLOBIN 9.3 G/DL (14.2-18.0); LYMPHOCYTES % (AUTO) 17.7 % (20.0-45.0); MEAN CORPUSCULAR VOLUME 91 FL (80-99); MONOCYTES % (AUTO) 8.1 % (1.0-10.0); NEUTROPHILS % (AUTO) 65.7 % (45.0-75.0); PLATELET COUNT 186 K/UL (150-450); RED BLOOD COUNT 3.03 M/UL (4.70-6.10); RED CELL DISTRIBUTION WIDTH 15.3 % (11.6-14.8); WHITE BLOOD COUNT 9.3 K/UL (4.8-10.8)
[2018-05-01 07:23] LABS: ANION GAP 7 mmol/L (5-15); BLOOD UREA NITROGEN 8 mg/dL (7-18); CALCIUM 8.4 MG/DL (8.5-10.1); CARBON DIOXIDE 23 MMOL/L (21-32); CHLORIDE 109 MMOL/L (98-107); CREATININE 1.2 MG/DL (0.55-1.30); SODIUM 139 MMOL/L (136-145)
[2018-05-01] MEDS: Pantoprazole 80 MG in NS 250 ML IV SCH (07:55)
[2018-05-01 08:00] VITALS: BP 134/65
[2018-05-01] MEDS: Lisinopril 10mg tab ORAL SCH (09:41)
--- NOTE | 2018-05-01 10:54 | General Progress Note ---
Assessment/Plan Problem List: (1) Diabetes ICD Codes: E11.9 - Type 2 diabetes mellitus without complications SNOMED: 09235970 (2) Gallstone pancreatitis ICD Codes: K85.10 - Biliary acute pancreatitis without necrosis or infection SNOMED: 67842730 (3) Anemia ICD Codes: D64.9 - Anemia, unspecified SNOMED: 400119719 (4) Choledocholithiasis with acute cholecystitis ICD Codes: K80.42 - Calculus of bile duct with acute cholecystitis without obstruction SNOMED: 03640555 Assessment/Plan s/p EGD and ERCP no active recurrent bleed on diet fu labs Subjective ROS Limited/Unobtainable: Yes Allergies: Coded Allergies: No Known Allergies (Unverified , 04/21/18) Subjective one episode of diarrhea Objective Last 24 Hour Vital Signs Date Time Temp Pulse Resp B/P (MAP) Pulse Ox O2 Delivery O2 Flow Rate FiO2 05/01/18 09:41 78 134/65 05/01/18 09:41 134/65 05/01/18 09:00 Room Air 05/01/18 08:00 98.6 78 18 134/65 (88) 98 05/01/18 04:00 99.2 68 20 141/70 (93) 99 05/01/18 00:00 99.1 69 20 117/58 (77) 99 04/30/18 21:00 Room Air 04/30/18 20:00 98.2 110 20 147/92 (110) 99 04/30/18 16:00 97.7 70 20 158/78 (104) 99 04/30/18 12:00 97.8 73 18 133/73 (93) 100 Intake and Output 04/30/18 05/01/18 18:59 06:59 Intake Total 400 ml Output Total 900 ml 1500 ml Balance -500 ml -1500 ml Intake Oral 400 ml Output Urine Total 900 ml 1500 ml # Voids 2 4 Laboratory Tests 05/01/18 05:15: White Blood Count 9.3, Red Blood Count 3.03L, Hemoglobin 9.3L, Hematocrit 27.7L , Mean Corpuscular Volume 91, Mean Corpuscular Hemoglobin 30.5, Mean Corpuscular Hemoglobin Concent 33.5, Red Cell Distribution Width 15.3H, Platelet Count 186, Mean Platelet Volume 8.0, Neutrophils (%) (Auto) 65.7, Lymphocytes (%) (Auto) 17.7L, Monocytes (%) (Auto) 8.1, Eosinophils (%) (Auto) 7.9H, Basophils (%) (Auto) 0.6, Sodium Level 139, Potassium Level 5.0, Chloride Level 109H, Carbon Dioxide Level 23, Anion Gap 7, Blood Urea Nitrogen 8, Creatinine 1.2, Estimat Glomerular Filtration Rate > 60, Glucose Level 179H, Calcium Level 8.4L Height (Feet): 5 Height (Inches): 5.00 Weight (Pounds): 106 General Appearance: alert EENT: normal ENT inspection Neck: supple Cardiovascular: normal rate Respiratory/Chest: decreased breath sounds Abdomen: normal bowel sounds, non tender, soft Extremities: non-tender León Lambert MD May 01, 2018 10:54
--- NOTE | 2018-05-01 11:52 | Nephrology Progress Note ---
Assessment/Plan Problem List: (1) JONA (acute kidney injury) Assessment: Cr lowering (2) Gallstone pancreatitis (3) Anemia (4) Dehydration (5) Hypovolemic shock (6) Diabetes Assessment: with elevated HgbA1c Assessment Plan transfused DC PO K DC Protonix drip K mag phos supplement as needed adjust BP meds- consider transfusion as needed Monitor renal parameters Monitor CPK Antibiotics per ID avoid nephrotoxics per GI Subjective ROS Limited/Unobtainable: No Objective Objective Last 24 Hour Vital Signs Date Time Temp Pulse Resp B/P (MAP) Pulse Ox O2 Delivery O2 Flow Rate FiO2 05/01/18 09:41 78 134/65 05/01/18 09:41 134/65 05/01/18 09:00 Room Air 05/01/18 08:00 98.6 78 18 134/65 (88) 98 05/01/18 04:00 99.2 68 20 141/70 (93) 99 05/01/18 00:00 99.1 69 20 117/58 (77) 99 04/30/18 21:00 Room Air 04/30/18 20:00 98.2 110 20 147/92 (110) 99 04/30/18 16:00 97.7 70 20 158/78 (104) 99 04/30/18 12:00 97.8 73 18 133/73 (93) 100 Intake and Output 04/30/18 05/01/18 18:59 06:59 Intake Total 400 ml Output Total 900 ml 1500 ml Balance -500 ml -1500 ml Intake Oral 400 ml Output Urine Total 900 ml 1500 ml # Voids 2 4 Laboratory Tests 05/01/18 05:15: White Blood Count 9.3, Red Blood Count 3.03L, Hemoglobin 9.3L, Hematocrit 27.7L , Mean Corpuscular Volume 91, Mean Corpuscular Hemoglobin 30.5, Mean Corpuscular Hemoglobin Concent 33.5, Red Cell Distribution Width 15.3H, Platelet Count 186, Mean Platelet Volume 8.0, Neutrophils (%) (Auto) 65.7, Lymphocytes (%) (Auto) 17.7L, Monocytes (%) (Auto) 8.1, Eosinophils (%) (Auto) 7.9H, Basophils (%) (Auto) 0.6, Sodium Level 139, Potassium Level 5.0, Chloride Level 109H, Carbon Dioxide Level 23, Anion Gap 7, Blood Urea Nitrogen 8, Creatinine 1.2, Estimat Glomerular Filtration Rate > 60, Glucose Level 179H, Calcium Level 8.4L Height (Feet): 5 Height (Inches): 5.00 Weight (Pounds): 106 General Appearance: no apparent distress Cardiovascular: normal rate Respiratory/Chest: decreased breath sounds Abdomen: soft Objective no change Orlin Berrios MD May 01, 2018 11:52
[2018-05-01 12:00] VITALS: BP 149/65
[2018-05-01 16:00] VITALS: BP 154/83
--- NOTE | 2018-05-01 16:13 | Surgery Progress Note ---
Surgery Progress Note Subjective Additional Comments responded well to prbc. no active bleeding noted. tolerating diet. Objective Last 24 Hour Vital Signs Date Time Temp Pulse Resp B/P (MAP) Pulse Ox O2 Delivery O2 Flow Rate FiO2 05/01/18 12:00 98.1 73 18 149/65 (93) 97 05/01/18 09:41 78 134/65 05/01/18 09:41 134/65 05/01/18 09:00 Room Air 05/01/18 08:00 98.6 78 18 134/65 (88) 98 05/01/18 04:00 99.2 68 20 141/70 (93) 99 05/01/18 00:00 99.1 69 20 117/58 (77) 99 04/30/18 21:00 Room Air 04/30/18 20:00 98.2 110 20 147/92 (110) 99 I&O Intake and Output 04/30/18 05/01/18 18:59 06:59 Intake Total 400 ml Output Total 900 ml 1500 ml Balance -500 ml -1500 ml Intake Oral 400 ml Output Urine Total 900 ml 1500 ml # Voids 2 4 Dressing: other Wound: other Drains: other Cardiovascular: RSR Respiratory: clear Abdomen: soft, flat, non-tender, present bowel sounds, non-distended Extremities: no tenderness, no cyanosis Laboratory Tests Test 05/01/18 05:15 White Blood Count 9.3 K/UL (4.8-10.8) Red Blood Count 3.03 M/UL (4.70-6.10) L Hemoglobin 9.3 G/DL (14.2-18.0) L Hematocrit 27.7 % (42.0-52.0) L Mean Corpuscular Volume 91 FL (80-99) Mean Corpuscular Hemoglobin 30.5 PG (27.0-31.0) Mean Corpuscular Hemoglobin Concent 33.5 G/DL (32.0-36.0) Red Cell Distribution Width 15.3 % (11.6-14.8) H Platelet Count 186 K/UL (150-450) Mean Platelet Volume 8.0 FL (6.5-10.1) Neutrophils (%) (Auto) 65.7 % (45.0-75.0) Lymphocytes (%) (Auto) 17.7 % (20.0-45.0) L Monocytes (%) (Auto) 8.1 % (1.0-10.0) Eosinophils (%) (Auto) 7.9 % (0.0-3.0) H Basophils (%) (Auto) 0.6 % (0.0-2.0) Sodium Level 139 MMOL/L (136-145) Potassium Level 5.0 MMOL/L (3.5-5.1) Chloride Level 109 MMOL/L (98-107) H Carbon Dioxide Level 23 MMOL/L (21-32) Anion Gap 7 mmol/L (5-15) Blood Urea Nitrogen 8 mg/dL (7-18) Creatinine 1.2 MG/DL (0.55-1.30) Estimat Glomerular Filtration Rate > 60 mL/min (>60) Glucose Level 179 MG/DL (74-106) H Calcium Level 8.4 MG/DL (8.5-10.1) L Plan Problems: (1) Acute cholecystitis Assessment & Plan: US with Distended urinary bladder. Torres catheter not visualized but present. Clinical evaluation is needed. Recommend removal of the Torres catheter and replacement. Mild pelvocaliectasis noted which is likely on the basis of the distended bladder. Suspected choledocholithiasis with the one or more stones in the distal common bile duct. Moderate biliary ductal dilatation demonstrated. Cholelithiasis with distention of the gallbladder and wall thickening. Leukocytosis Hypotensive shock Abnormal LFT's. Possible choledocholithiasis MRI reviewed. likely gallstone pancreatitis with choledocholithiasis. labs improving jennifer/lip improved s/p ercp with stone extration recovering. s/p egd without bleeding responded well to prbc -diet as tolerated -Abx as per ID -no acute surgical intervention planned -elective cholecystectomy in 6 weeks. had significant acute pancreatitis with sepsis and would benefit from recovery for decreased inflammation prior to cholecystectomy -d/c planning -thank you for this consult. will follow with recs. (2) Hypovolemic shock (3) Rectal bleeding Assessment & Plan: hold discharge had blood in rectal vault and bloody BM discussed with GI plan for scope tomorrow Martin Sterling May 01, 2018 16:13
--- NOTE | 2018-05-01 18:45 | General Progress Note ---
Assessment/Plan Problem List: (1) ARF (acute renal failure) ICD Codes: N17.9 - Acute kidney failure, unspecified SNOMED: 93907840 Qualifiers: Qualified Codes: N17.9 - Acute kidney failure, unspecified (2) Hypovolemic shock ICD Codes: R57.1 - Hypovolemic shock SNOMED: 79565579 (3) JONA (acute kidney injury) ICD Codes: N17.9 - Acute kidney failure, unspecified SNOMED: 83056471 Status: progressing Assessment/Plan azotemia improved reviewed chart and labs acute cholycystitis improving anemia getting transfusion no melena check h/h Subjective ROS Limited/Unobtainable: Yes Allergies: Coded Allergies: No Known Allergies (Unverified , 04/21/18) Subjective general pain Objective Last 24 Hour Vital Signs Date Time Temp Pulse Resp B/P (MAP) Pulse Ox O2 Delivery O2 Flow Rate FiO2 05/01/18 16:00 99.3 77 18 154/83 (106) 98 05/01/18 12:00 98.1 73 18 149/65 (93) 97 05/01/18 09:41 78 134/65 05/01/18 09:41 134/65 05/01/18 09:00 Room Air 05/01/18 08:00 98.6 78 18 134/65 (88) 98 05/01/18 04:00 99.2 68 20 141/70 (93) 99 05/01/18 00:00 99.1 69 20 117/58 (77) 99 04/30/18 21:00 Room Air 04/30/18 20:00 98.2 110 20 147/92 (110) 99 Intake and Output 04/30/18 05/01/18 19:00 07:00 Intake Total 400 ml Output Total 900 ml 1500 ml Balance -500 ml -1500 ml Intake Oral 400 ml Output Urine Total 900 ml 1500 ml # Voids 2 4 Laboratory Tests 05/01/18 05:15: White Blood Count 9.3, Red Blood Count 3.03L, Hemoglobin 9.3L, Hematocrit 27.7L , Mean Corpuscular Volume 91, Mean Corpuscular Hemoglobin 30.5, Mean Corpuscular Hemoglobin Concent 33.5, Red Cell Distribution Width 15.3H, Platelet Count 186, Mean Platelet Volume 8.0, Neutrophils (%) (Auto) 65.7, Lymphocytes (%) (Auto) 17.7L, Monocytes (%) (Auto) 8.1, Eosinophils (%) (Auto) 7.9H, Basophils (%) (Auto) 0.6, Sodium Level 139, Potassium Level 5.0, Chloride Level 109H, Carbon Dioxide Level 23, Anion Gap 7, Blood Urea Nitrogen 8, Creatinine 1.2, Estimat Glomerular Filtration Rate > 60, Glucose Level 179H, Calcium Level 8.4L Height (Feet): 5 Height (Inches): 5.00 Weight (Pounds): 106 Neck: supple Cardiovascular: normal rate Respiratory/Chest: lungs clear Abdomen: soft Oksana Casey MD May 01, 2018 18:45
[2018-05-01 20:00] VITALS: BP 98/52
--- NOTE | 2018-05-01 21:59 | Cardiology Progress Note ---
Assessment/Plan Assessment/Plan 1. Septic shock, resolved, continue hydration. Echo reveals normal LV systolic and diastolic function. 2. JONA, creatinine stable at 1.2. 3. History of diabetes mellitus. 4. Hypertension, optimize lisinopril and amlodipine low dose. Hydralazine as needed. 5. Gallstone pancreatitis. Subjective Subjective No cardiac events noted. Clinically the same. Objective Last 24 Hour Vital Signs Date Time Temp Pulse Resp B/P (MAP) Pulse Ox O2 Delivery O2 Flow Rate FiO2 05/01/18 16:00 99.3 77 18 154/83 (106) 98 05/01/18 12:00 98.1 73 18 149/65 (93) 97 05/01/18 09:41 78 134/65 05/01/18 09:41 134/65 05/01/18 09:00 Room Air 05/01/18 08:00 98.6 78 18 134/65 (88) 98 05/01/18 04:00 99.2 68 20 141/70 (93) 99 05/01/18 00:00 99.1 69 20 117/58 (77) 99 Intake and Output 04/30/18 05/01/18 19:00 07:00 Intake Total 400 ml Output Total 900 ml 1500 ml Balance -500 ml -1500 ml Intake Oral 400 ml Output Urine Total 900 ml 1500 ml # Voids 2 4 2D Echo: LVEF 55%, RVSP 42 mmHg Laboratory Tests Test 05/01/18 05:15 White Blood Count 9.3 K/UL (4.8-10.8) Red Blood Count 3.03 M/UL (4.70-6.10) L Hemoglobin 9.3 G/DL (14.2-18.0) L Hematocrit 27.7 % (42.0-52.0) L Mean Corpuscular Volume 91 FL (80-99) Mean Corpuscular Hemoglobin 30.5 PG (27.0-31.0) Mean Corpuscular Hemoglobin Concent 33.5 G/DL (32.0-36.0) Red Cell Distribution Width 15.3 % (11.6-14.8) H Platelet Count 186 K/UL (150-450) Mean Platelet Volume 8.0 FL (6.5-10.1) Neutrophils (%) (Auto) 65.7 % (45.0-75.0) Lymphocytes (%) (Auto) 17.7 % (20.0-45.0) L Monocytes (%) (Auto) 8.1 % (1.0-10.0) Eosinophils (%) (Auto) 7.9 % (0.0-3.0) H Basophils (%) (Auto) 0.6 % (0.0-2.0) Sodium Level 139 MMOL/L (136-145) Potassium Level 5.0 MMOL/L (3.5-5.1) Chloride Level 109 MMOL/L (98-107) H Carbon Dioxide Level 23 MMOL/L (21-32) Anion Gap 7 mmol/L (5-15) Blood Urea Nitrogen 8 mg/dL (7-18) Creatinine 1.2 MG/DL (0.55-1.30) Estimat Glomerular Filtration Rate > 60 mL/min (>60) Glucose Level 179 MG/DL (74-106) H Calcium Level 8.4 MG/DL (8.5-10.1) L Objective HEENT: Atraumatic, normocephalic. ENT, pupils are equal, round, and reactive to light and accommodation. Extraocular muscles intact. NECK: JVP less than 5 cm. No carotid bruit. Carotid upstrokes 2+ bilaterally. CARDIOVASCULAR SYSTEM: Normal S1, S2. Regular rate and rhythm. No murmurs, gallops, or rubs. PMI is at fourth intercostal space at midclavicular line. LUNGS: Clear to auscultation bilaterally. ABDOMEN: Soft, nontender, and nondistended. No hepatosplenomegaly. Positive bowel sounds. EXTREMITIES: No evidence of edema, clubbing, or cyanosis. Alvaro Hargrove MD May 01, 2018 21:59
[2018-05-02] VITALS: BP 126/67
[2018-05-02 04:00] VITALS: BP 145/73
[2018-05-02] MEDS: NovoLOG Insulin Flexpen SUBQ SCH ×4 (06:23→20:29)
[2018-05-02 06:29] LABS: BASOPHILS % (AUTO) 0.6 % (0.0-2.0); EOSINOPHILS % (AUTO) 6.1 % (0.0-3.0); HEMATOCRIT 30.5 % (42.0-52.0); LYMPHOCYTES % (AUTO) 20.6 % (20.0-45.0); MEAN CORPUSCULAR VOLUME 93 FL (80-99); MONOCYTES % (AUTO) 7.7 % (1.0-10.0); NEUTROPHILS % (AUTO) 65.1 % (45.0-75.0); PLATELET COUNT 216 K/UL (150-450); RED BLOOD COUNT 3.29 M/UL (4.70-6.10); RED CELL DISTRIBUTION WIDTH 15.7 % (11.6-14.8)
[2018-05-02 06:51] LABS: ALANINE AMINOTRANSFERASE 30 U/L (12-78); ALBUMIN 2.9 G/DL (3.4-5.0); ALBUMIN/GLOBULIN RATIO 0.7 (1.0-2.7); ALKALINE PHOSPHATASE 156 U/L (46-116); ANION GAP 7 mmol/L (5-15); ASPARTATE AMINO TRANSFERASE 25 U/L (15-37); BILIRUBIN,TOTAL 0.4 MG/DL (0.2-1.0); BLOOD UREA NITROGEN 12 mg/dL (7-18); CALCIUM 8.8 MG/DL (8.5-10.1); CARBON DIOXIDE 25 MMOL/L (21-32); CHLORIDE 108 MMOL/L (98-107); CREATININE 1.5 MG/DL (0.55-1.30); PHOSPHORUS 2.5 MG/DL (2.5-4.9); POTASSIUM 5.3 MMOL/L (3.5-5.1); SODIUM 140 MMOL/L (136-145)
[2018-05-02 08:00] VITALS: BP 149/80
[2018-05-02] MEDS: Lisinopril 10mg tab ORAL SCH (10:42)
--- NOTE | 2018-05-02 11:15 | General Progress Note ---
Assessment/Plan Problem List: (1) Diabetes ICD Codes: E11.9 - Type 2 diabetes mellitus without complications SNOMED: 38738525 (2) Gallstone pancreatitis ICD Codes: K85.10 - Biliary acute pancreatitis without necrosis or infection SNOMED: 86633564 (3) Anemia ICD Codes: D64.9 - Anemia, unspecified SNOMED: 815326828 (4) Choledocholithiasis with acute cholecystitis ICD Codes: K80.42 - Calculus of bile duct with acute cholecystitis without obstruction SNOMED: 52143302 Assessment/Plan s/p EGD and ERCP no active recurrent bleed on diet fu labs Subjective ROS Limited/Unobtainable: Yes Allergies: Coded Allergies: No Known Allergies (Unverified , 04/21/18) Subjective one episode of diarrhea Objective Last 24 Hour Vital Signs Date Time Temp Pulse Resp B/P (MAP) Pulse Ox O2 Delivery O2 Flow Rate FiO2 05/02/18 10:42 149/80 05/02/18 10:41 72 149/80 05/02/18 09:00 Room Air 05/02/18 08:00 98.2 72 18 149/80 (103) 98 05/02/18 04:00 97.8 70 18 145/73 (97) 98 05/02/18 00:00 98.7 65 18 126/67 (86) 99 05/01/18 21:00 Room Air 05/01/18 20:00 99.8 74 18 98/52 (67) 97 05/01/18 16:00 99.3 77 18 154/83 (106) 98 05/01/18 12:00 98.1 73 18 149/65 (93) 97 Intake and Output 05/01/18 05/02/18 19:00 07:00 Intake Total 750 ml Output Total 400 ml 2 ml Balance 350 ml -2 ml Intake Oral 700 ml IV Total 50 ml Output Urine Total 400 ml 2 ml # Bowel Movements 4 Laboratory Tests 05/02/18 05:10: White Blood Count 9.0, Red Blood Count 3.29L, Hemoglobin 10.0L, Hematocrit 30.5L , Mean Corpuscular Volume 93, Mean Corpuscular Hemoglobin 30.3, Mean Corpuscular Hemoglobin Concent 32.7, Red Cell Distribution Width 15.7H, Platelet Count 216, Mean Platelet Volume 7.8, Neutrophils (%) (Auto) 65.1, Lymphocytes (%) (Auto) 20.6, Monocytes (%) (Auto) 7.7, Eosinophils (%) (Auto) 6.1H, Basophils (%) (Auto) 0.6, Sodium Level 140, Potassium Level 5.3H, Chloride Level 108H, Carbon Dioxide Level 25, Anion Gap 7, Blood Urea Nitrogen 12, Creatinine 1.5H, Estimat Glomerular Filtration Rate 47.4, Glucose Level 254H , Calcium Level 8.8, Phosphorus Level 2.5, Magnesium Level 1.6L, Total Bilirubin 0.4, Aspartate Amino Transf (AST/SGOT) 25, Alanine Aminotransferase ( ALT/SGPT) 30, Alkaline Phosphatase 156H, Total Protein 6.9, Albumin 2.9L, Globulin 4.0, Albumin/Globulin Ratio 0.7L Height (Feet): 5 Height (Inches): 5.00 Weight (Pounds): 106 General Appearance: no apparent distress EENT: normal ENT inspection Neck: supple Cardiovascular: normal rate Respiratory/Chest: decreased breath sounds Abdomen: normal bowel sounds, non tender, soft Extremities: non-tender León Lambert MD May 02, 2018 11:15
[2018-05-02 12:00] VITALS: BP 161/87
--- NOTE | 2018-05-02 12:37 | Infectious Diseases Prog Note ---
Assessment/Plan Assessment/Plan A; 1. Sepsis resolved 2.Cholelithiasis/Choledocholithiasis s/p ERCP 3. Leukocytosis. resolved 4. acute renal failure, improving 5. Elevated transaminase. 6. Diabetes mellitus. 7. Hypertension. 8. Lactic acidosis. 9. Pancreatitis 10. Diarrhea, negative C. difficile test 11. GI Bleeding 12. Gastritis P: Observe off antibiotic Elective Cholecystectomy as suggested by surgeon Subjective ROS Limited/Unobtainable: No Constitutional: Reports: no symptoms Respiratory: Reports: no symptoms Cardiovascular: Reports: no symptoms Gastrointestinal/Abdominal: Reports: no symptoms Genitourinary: Reports: no symptoms Allergies: Coded Allergies: No Known Allergies (Unverified , 04/21/18) Objective Vital Signs Last 24 Hour Vital Signs Date Time Temp Pulse Resp B/P (MAP) Pulse Ox O2 Delivery O2 Flow Rate FiO2 05/02/18 12:15 71 160/78 05/02/18 10:42 149/80 05/02/18 10:41 72 149/80 05/02/18 09:00 Room Air 05/02/18 08:00 98.2 72 18 149/80 (103) 98 05/02/18 04:00 97.8 70 18 145/73 (97) 98 05/02/18 00:00 98.7 65 18 126/67 (86) 99 05/01/18 21:00 Room Air 05/01/18 20:00 99.8 74 18 98/52 (67) 97 05/01/18 16:00 99.3 77 18 154/83 (106) 98 Height (Feet): 5 Height (Inches): 5.00 Weight (Pounds): 106 General Appearance: no acute distress HEENT: mucous membranes moist Respiratory/Chest: lungs clear Cardiovascular: normal rate Abdomen: soft, non tender Extremities: no edema Neurologic/Psychiatric: alert, responsive Laboratory Tests Test 05/02/18 05:10 White Blood Count 9.0 K/UL (4.8-10.8) Red Blood Count 3.29 M/UL (4.70-6.10) L Hemoglobin 10.0 G/DL (14.2-18.0) L Hematocrit 30.5 % (42.0-52.0) L Mean Corpuscular Volume 93 FL (80-99) Mean Corpuscular Hemoglobin 30.3 PG (27.0-31.0) Mean Corpuscular Hemoglobin Concent 32.7 G/DL (32.0-36.0) Red Cell Distribution Width 15.7 % (11.6-14.8) H Platelet Count 216 K/UL (150-450) Mean Platelet Volume 7.8 FL (6.5-10.1) Neutrophils (%) (Auto) 65.1 % (45.0-75.0) Lymphocytes (%) (Auto) 20.6 % (20.0-45.0) Monocytes (%) (Auto) 7.7 % (1.0-10.0) Eosinophils (%) (Auto) 6.1 % (0.0-3.0) H Basophils (%) (Auto) 0.6 % (0.0-2.0) Sodium Level 140 MMOL/L (136-145) Potassium Level 5.3 MMOL/L (3.5-5.1) H Chloride Level 108 MMOL/L (98-107) H Carbon Dioxide Level 25 MMOL/L (21-32) Anion Gap 7 mmol/L (5-15) Blood Urea Nitrogen 12 mg/dL (7-18) Creatinine 1.5 MG/DL (0.55-1.30) H Estimat Glomerular Filtration Rate 47.4 mL/min (>60) Glucose Level 254 MG/DL (74-106) H Calcium Level 8.8 MG/DL (8.5-10.1) Phosphorus Level 2.5 MG/DL (2.5-4.9) Magnesium Level 1.6 MG/DL (1.8-2.4) L Total Bilirubin 0.4 MG/DL (0.2-1.0) Aspartate Amino Transf (AST/SGOT) 25 U/L (15-37) Alanine Aminotransferase (ALT/SGPT) 30 U/L (12-78) Alkaline Phosphatase 156 U/L (46-116) H Total Protein 6.9 G/DL (6.4-8.2) Albumin 2.9 G/DL (3.4-5.0) L Globulin 4.0 g/dL Albumin/Globulin Ratio 0.7 (1.0-2.7) L Current Medications Medications (Trade) Dose Ordered Sig/Jamal Route PRN Reason Start Time Stop Time Status Last Admin Dose Admin Acetaminophen (Tylenol) 500 mg Q4H PRN ORAL Mild Pain/Temp > 100.5 04/24/18 14:00 05/23/18 13:59 Amlodipine Besylate (Norvasc) 5 mg ONCE ORAL 05/02/18 12:00 05/02/18 13:00 05/02/18 12:15 Amlodipine Besylate (Norvasc) 10 mg DAILY ORAL 05/03/18 09:00 05/29/18 21:03 Dextrose (Dextrose 50%) 25 ml Q30M PRN IV Hypoglycemia 04/24/18 14:00 05/21/18 10:59 Dextrose (Dextrose 50%) 50 ml Q30M PRN IV Hypoglycemia 04/24/18 14:00 05/21/18 10:59 Folic Acid (Folate) 3 mg DAILY ORAL 04/25/18 09:00 05/22/18 17:14 05/02/18 08:30 Hydralazine HCl (Apresoline) 25 mg Q4H PRN ORAL bp over 160 syst 04/26/18 13:15 05/26/18 13:14 04/27/18 23:33 Insulin Aspart (NovoLOG) BEFORE MEALS AND HS SUBQ 04/24/18 16:30 05/21/18 11:29 05/02/18 12:14 Pantoprazole (Protonix) 40 mg DAILY ORAL 05/03/18 09:00 05/31/18 20:59 Sodium Chloride 1,000 ml @ 100 mls/hr Q10H IV 05/02/18 12:00 05/02/18 21:59 05/02/18 12:14 Tamsulosin HCl (Flomax) 0.4 mg BEDTIME ORAL 05/02/18 21:00 06/01/18 20:59 Thai Hale MD May 02, 2018 12:37
--- NOTE | 2018-05-02 12:51 | Nephrology Progress Note ---
Assessment/Plan Problem List: (1) JONA (acute kidney injury) Assessment: Cr lowering (2) Gallstone pancreatitis (3) Anemia (4) Dehydration (5) Hypovolemic shock (6) Diabetes Assessment: with elevated HgbA1c Assessment Plan transfused DC PO K DC Zestril Fluid challenge Flomax DC Protonix drip K mag phos supplement as needed adjust BP meds- consider transfusion as needed Monitor renal parameters Monitor CPK Antibiotics per ID avoid nephrotoxics per GI Subjective ROS Limited/Unobtainable: No Constitutional: Reports: malaise Objective Objective Last 24 Hour Vital Signs Date Time Temp Pulse Resp B/P (MAP) Pulse Ox O2 Delivery O2 Flow Rate FiO2 05/02/18 12:15 71 160/78 05/02/18 10:42 149/80 05/02/18 10:41 72 149/80 05/02/18 09:00 Room Air 05/02/18 08:00 98.2 72 18 149/80 (103) 98 05/02/18 04:00 97.8 70 18 145/73 (97) 98 05/02/18 00:00 98.7 65 18 126/67 (86) 99 05/01/18 21:00 Room Air 05/01/18 20:00 99.8 74 18 98/52 (67) 97 05/01/18 16:00 99.3 77 18 154/83 (106) 98 Intake and Output 05/01/18 05/02/18 19:00 07:00 Intake Total 750 ml Output Total 400 ml 2 ml Balance 350 ml -2 ml Intake Oral 700 ml IV Total 50 ml Output Urine Total 400 ml 2 ml # Bowel Movements 4 Laboratory Tests 05/02/18 05:10: White Blood Count 9.0, Red Blood Count 3.29L, Hemoglobin 10.0L, Hematocrit 30.5L , Mean Corpuscular Volume 93, Mean Corpuscular Hemoglobin 30.3, Mean Corpuscular Hemoglobin Concent 32.7, Red Cell Distribution Width 15.7H, Platelet Count 216, Mean Platelet Volume 7.8, Neutrophils (%) (Auto) 65.1, Lymphocytes (%) (Auto) 20.6, Monocytes (%) (Auto) 7.7, Eosinophils (%) (Auto) 6.1H, Basophils (%) (Auto) 0.6, Sodium Level 140, Potassium Level 5.3H, Chloride Level 108H, Carbon Dioxide Level 25, Anion Gap 7, Blood Urea Nitrogen 12, Creatinine 1.5H, Estimat Glomerular Filtration Rate 47.4, Glucose Level 254H , Calcium Level 8.8, Phosphorus Level 2.5, Magnesium Level 1.6L, Total Bilirubin 0.4, Aspartate Amino Transf (AST/SGOT) 25, Alanine Aminotransferase ( ALT/SGPT) 30, Alkaline Phosphatase 156H, Total Protein 6.9, Albumin 2.9L, Globulin 4.0, Albumin/Globulin Ratio 0.7L Height (Feet): 5 Height (Inches): 5.00 Weight (Pounds): 106 General Appearance: no apparent distress Cardiovascular: normal rate Respiratory/Chest: lungs clear Abdomen: soft Objective no change Orlin Berrios MD May 02, 2018 12:51
--- NOTE | 2018-05-02 13:33 | General Progress Note ---
Assessment/Plan Problem List: (1) ARF (acute renal failure) ICD Codes: N17.9 - Acute kidney failure, unspecified SNOMED: 07949293 Qualifiers: Qualified Codes: N17.9 - Acute kidney failure, unspecified (2) Hypovolemic shock ICD Codes: R57.1 - Hypovolemic shock SNOMED: 20715424 (3) JONA (acute kidney injury) ICD Codes: N17.9 - Acute kidney failure, unspecified SNOMED: 71182617 Status: progressing Assessment/Plan azotemia improved intermittent gi bleed afebrile reviewed chart and labs acute cholycystitis improving anemia no melena check h/h Subjective ROS Limited/Unobtainable: Yes Allergies: Coded Allergies: No Known Allergies (Unverified , 04/21/18) Subjective general pain Objective Last 24 Hour Vital Signs Date Time Temp Pulse Resp B/P (MAP) Pulse Ox O2 Delivery O2 Flow Rate FiO2 05/02/18 12:15 71 160/78 05/02/18 12:00 98.2 77 18 161/87 (111) 98 05/02/18 10:42 149/80 05/02/18 10:41 72 149/80 05/02/18 09:00 Room Air 05/02/18 08:00 98.2 72 18 149/80 (103) 98 05/02/18 04:00 97.8 70 18 145/73 (97) 98 05/02/18 00:00 98.7 65 18 126/67 (86) 99 05/01/18 21:00 Room Air 05/01/18 20:00 99.8 74 18 98/52 (67) 97 05/01/18 16:00 99.3 77 18 154/83 (106) 98 Intake and Output 05/01/18 05/02/18 18:59 06:59 Intake Total 750 ml Output Total 400 ml 2 ml Balance 350 ml -2 ml Intake Oral 700 ml IV Total 50 ml Output Urine Total 400 ml 2 ml # Bowel Movements 4 Laboratory Tests 05/02/18 05:10: White Blood Count 9.0, Red Blood Count 3.29L, Hemoglobin 10.0L, Hematocrit 30.5L , Mean Corpuscular Volume 93, Mean Corpuscular Hemoglobin 30.3, Mean Corpuscular Hemoglobin Concent 32.7, Red Cell Distribution Width 15.7H, Platelet Count 216, Mean Platelet Volume 7.8, Neutrophils (%) (Auto) 65.1, Lymphocytes (%) (Auto) 20.6, Monocytes (%) (Auto) 7.7, Eosinophils (%) (Auto) 6.1H, Basophils (%) (Auto) 0.6, Sodium Level 140, Potassium Level 5.3H, Chloride Level 108H, Carbon Dioxide Level 25, Anion Gap 7, Blood Urea Nitrogen 12, Creatinine 1.5H, Estimat Glomerular Filtration Rate 47.4, Glucose Level 254H , Calcium Level 8.8, Phosphorus Level 2.5, Magnesium Level 1.6L, Total Bilirubin 0.4, Aspartate Amino Transf (AST/SGOT) 25, Alanine Aminotransferase ( ALT/SGPT) 30, Alkaline Phosphatase 156H, Total Protein 6.9, Albumin 2.9L, Globulin 4.0, Albumin/Globulin Ratio 0.7L Height (Feet): 5 Height (Inches): 5.00 Weight (Pounds): 106 Neck: supple Cardiovascular: normal rate Respiratory/Chest: lungs clear Oksana Casey MD May 02, 2018 13:32
--- NOTE | 2018-05-02 15:50 | Surgery Progress Note ---
Surgery Progress Note Subjective Symptoms: improved, pain absent Objective Last 24 Hour Vital Signs Date Time Temp Pulse Resp B/P (MAP) Pulse Ox O2 Delivery O2 Flow Rate FiO2 05/02/18 12:15 71 160/78 05/02/18 12:00 98.2 77 18 161/87 (111) 98 05/02/18 10:42 149/80 05/02/18 10:41 72 149/80 05/02/18 09:00 Room Air 05/02/18 08:00 98.2 72 18 149/80 (103) 98 05/02/18 04:00 97.8 70 18 145/73 (97) 98 05/02/18 00:00 98.7 65 18 126/67 (86) 99 05/01/18 21:00 Room Air 05/01/18 20:00 99.8 74 18 98/52 (67) 97 05/01/18 16:00 99.3 77 18 154/83 (106) 98 I&O Intake and Output 05/01/18 05/02/18 18:59 06:59 Intake Total 750 ml Output Total 400 ml 2 ml Balance 350 ml -2 ml Intake Oral 700 ml IV Total 50 ml Output Urine Total 400 ml 2 ml # Bowel Movements 4 Dressing: other Wound: other Drains: other Cardiovascular: RSR Respiratory: clear Abdomen: soft, flat, non-tender, present bowel sounds Extremities: no cyanosis Laboratory Tests Test 05/02/18 05:10 White Blood Count 9.0 K/UL (4.8-10.8) Red Blood Count 3.29 M/UL (4.70-6.10) L Hemoglobin 10.0 G/DL (14.2-18.0) L Hematocrit 30.5 % (42.0-52.0) L Mean Corpuscular Volume 93 FL (80-99) Mean Corpuscular Hemoglobin 30.3 PG (27.0-31.0) Mean Corpuscular Hemoglobin Concent 32.7 G/DL (32.0-36.0) Red Cell Distribution Width 15.7 % (11.6-14.8) H Platelet Count 216 K/UL (150-450) Mean Platelet Volume 7.8 FL (6.5-10.1) Neutrophils (%) (Auto) 65.1 % (45.0-75.0) Lymphocytes (%) (Auto) 20.6 % (20.0-45.0) Monocytes (%) (Auto) 7.7 % (1.0-10.0) Eosinophils (%) (Auto) 6.1 % (0.0-3.0) H Basophils (%) (Auto) 0.6 % (0.0-2.0) Sodium Level 140 MMOL/L (136-145) Potassium Level 5.3 MMOL/L (3.5-5.1) H Chloride Level 108 MMOL/L (98-107) H Carbon Dioxide Level 25 MMOL/L (21-32) Anion Gap 7 mmol/L (5-15) Blood Urea Nitrogen 12 mg/dL (7-18) Creatinine 1.5 MG/DL (0.55-1.30) H Estimat Glomerular Filtration Rate 47.4 mL/min (>60) Glucose Level 254 MG/DL (74-106) H Calcium Level 8.8 MG/DL (8.5-10.1) Phosphorus Level 2.5 MG/DL (2.5-4.9) Magnesium Level 1.6 MG/DL (1.8-2.4) L Total Bilirubin 0.4 MG/DL (0.2-1.0) Aspartate Amino Transf (AST/SGOT) 25 U/L (15-37) Alanine Aminotransferase (ALT/SGPT) 30 U/L (12-78) Alkaline Phosphatase 156 U/L (46-116) H Total Protein 6.9 G/DL (6.4-8.2) Albumin 2.9 G/DL (3.4-5.0) L Globulin 4.0 g/dL Albumin/Globulin Ratio 0.7 (1.0-2.7) L Plan Problems: (1) Acute cholecystitis Assessment & Plan: US with Distended urinary bladder. Torres catheter not visualized but present. Clinical evaluation is needed. Recommend removal of the Torres catheter and replacement. Mild pelvocaliectasis noted which is likely on the basis of the distended bladder. Suspected choledocholithiasis with the one or more stones in the distal common bile duct. Moderate biliary ductal dilatation demonstrated. Cholelithiasis with distention of the gallbladder and wall thickening. Leukocytosis Hypotensive shock Abnormal LFT's. Possible choledocholithiasis MRI reviewed. likely gallstone pancreatitis with choledocholithiasis. labs improving jennifer/lip improved s/p ercp with stone extration recovering. s/p egd without bleeding responded well to prbc -diet as tolerated -Abx as per ID -no acute surgical intervention planned -elective cholecystectomy in 6 weeks. had significant acute pancreatitis with sepsis and would benefit from recovery for decreased inflammation prior to cholecystectomy -d/c planning -thank you for this consult. will follow with recs. (2) Hypovolemic shock (3) Rectal bleeding Assessment & Plan: hold discharge had blood in rectal vault and bloody BM discussed with GI plan for scope tomorrow Martin Sterling May 02, 2018 15:50
[2018-05-02 16:00] VITALS: BP 114/67
[2018-05-02] MEDS: Loperamide 2mg cap ORAL PRN (18:58)
[2018-05-02] MEDS: Tamsulosin 0.4mg cap ORAL SCH (20:24)
[2018-05-02 20:28] VITALS: BP 117/76
--- NOTE | 2018-05-02 23:55 | Cardiology Progress Note ---
Assessment/Plan Assessment/Plan 1. Septic shock, resolved, fluctuating BP, Echo reveals normal LV systolic and diastolic function. 2. JONA, creatinine up to 1.5. 3. History of diabetes mellitus. 4. Hypertension, optimize lisinopril and amlodipine low dose. Hydralazine as needed. 5. Gallstone pancreatitis. Subjective Subjective No cardiac events noted. Objective Last 24 Hour Vital Signs Date Time Temp Pulse Resp B/P (MAP) Pulse Ox O2 Delivery O2 Flow Rate FiO2 05/02/18 21:00 Room Air 05/02/18 20:28 98.6 80 18 117/76 (90) 99 05/02/18 16:00 98.4 73 18 114/67 (83) 99 05/02/18 12:15 71 160/78 05/02/18 12:00 98.2 77 18 161/87 (111) 98 05/02/18 10:42 149/80 05/02/18 10:41 72 149/80 05/02/18 09:00 Room Air 05/02/18 08:00 98.2 72 18 149/80 (103) 98 05/02/18 04:00 97.8 70 18 145/73 (97) 98 05/02/18 00:00 98.7 65 18 126/67 (86) 99 Intake and Output 05/01/18 05/02/18 19:00 07:00 Intake Total 750 ml Output Total 400 ml 2 ml Balance 350 ml -2 ml Intake Oral 700 ml IV Total 50 ml Output Urine Total 400 ml 2 ml # Bowel Movements 4 2D Echo: LVEF 55%, RVSP 42 mmHg Laboratory Tests Test 05/02/18 05:10 White Blood Count 9.0 K/UL (4.8-10.8) Red Blood Count 3.29 M/UL (4.70-6.10) L Hemoglobin 10.0 G/DL (14.2-18.0) L Hematocrit 30.5 % (42.0-52.0) L Mean Corpuscular Volume 93 FL (80-99) Mean Corpuscular Hemoglobin 30.3 PG (27.0-31.0) Mean Corpuscular Hemoglobin Concent 32.7 G/DL (32.0-36.0) Red Cell Distribution Width 15.7 % (11.6-14.8) H Platelet Count 216 K/UL (150-450) Mean Platelet Volume 7.8 FL (6.5-10.1) Neutrophils (%) (Auto) 65.1 % (45.0-75.0) Lymphocytes (%) (Auto) 20.6 % (20.0-45.0) Monocytes (%) (Auto) 7.7 % (1.0-10.0) Eosinophils (%) (Auto) 6.1 % (0.0-3.0) H Basophils (%) (Auto) 0.6 % (0.0-2.0) Sodium Level 140 MMOL/L (136-145) Potassium Level 5.3 MMOL/L (3.5-5.1) H Chloride Level 108 MMOL/L (98-107) H Carbon Dioxide Level 25 MMOL/L (21-32) Anion Gap 7 mmol/L (5-15) Blood Urea Nitrogen 12 mg/dL (7-18) Creatinine 1.5 MG/DL (0.55-1.30) H Estimat Glomerular Filtration Rate 47.4 mL/min (>60) Glucose Level 254 MG/DL (74-106) H Calcium Level 8.8 MG/DL (8.5-10.1) Phosphorus Level 2.5 MG/DL (2.5-4.9) Magnesium Level 1.6 MG/DL (1.8-2.4) L Total Bilirubin 0.4 MG/DL (0.2-1.0) Aspartate Amino Transf (AST/SGOT) 25 U/L (15-37) Alanine Aminotransferase (ALT/SGPT) 30 U/L (12-78) Alkaline Phosphatase 156 U/L (46-116) H Total Protein 6.9 G/DL (6.4-8.2) Albumin 2.9 G/DL (3.4-5.0) L Globulin 4.0 g/dL Albumin/Globulin Ratio 0.7 (1.0-2.7) L Objective HEENT: Atraumatic, normocephalic. ENT, pupils are equal, round, and reactive to light and accommodation. Extraocular muscles intact. NECK: JVP less than 5 cm. No carotid bruit. Carotid upstrokes 2+ bilaterally. CARDIOVASCULAR SYSTEM: Normal S1, S2. Regular rate and rhythm. No murmurs, gallops, or rubs. PMI is at fourth intercostal space at midclavicular line. LUNGS: Clear to auscultation bilaterally. ABDOMEN: Soft, nontender, and nondistended. No hepatosplenomegaly. Positive bowel sounds. EXTREMITIES: No evidence of edema, clubbing, or cyanosis. Alvaro Hargrove MD May 02, 2018 23:55
[2018-05-03] VITALS: BP 152/70
[2018-05-03 04:23] VITALS: BP 140/75
[2018-05-03] MEDS: NovoLOG Insulin Flexpen SUBQ SCH ×4 (06:15→20:27)
[2018-05-03 07:06] LABS: ALANINE AMINOTRANSFERASE 40 U/L (12-78); ALBUMIN 2.8 G/DL (3.4-5.0); ALBUMIN/GLOBULIN RATIO 0.7 (1.0-2.7); ALKALINE PHOSPHATASE 171 U/L (46-116); AMYLASE 105 U/L (25-115); ANION GAP 10 mmol/L (5-15); ASPARTATE AMINO TRANSFERASE 36 U/L (15-37); BILIRUBIN,TOTAL 0.4 MG/DL (0.2-1.0); BLOOD UREA NITROGEN 18 mg/dL (7-18); CALCIUM 8.8 MG/DL (8.5-10.1); CARBON DIOXIDE 23 MMOL/L (21-32); CHLORIDE 106 MMOL/L (98-107); CREATININE 1.5 MG/DL (0.55-1.30); POTASSIUM 4.8 MMOL/L (3.5-5.1); SODIUM 139 MMOL/L (136-145)
[2018-05-03 07:55] LABS: PHOSPHORUS 3.5 MG/DL (2.5-4.9)
[2018-05-03 08:00] VITALS: BP 85/45
[2018-05-03 08:57] LABS: EOSINOPHILS % (AUTO) 6.4 % (0.0-3.0); HEMATOCRIT 27.6 % (42.0-52.0); HEMOGLOBIN 8.9 G/DL (14.2-18.0); LYMPHOCYTES % (AUTO) 19.4 % (20.0-45.0); MEAN CORPUSCULAR VOLUME 94 FL (80-99); MONOCYTES % (AUTO) 8.1 % (1.0-10.0); NEUTROPHILS % (AUTO) 65.1 % (45.0-75.0); PLATELET COUNT 191 K/UL (150-450); RED BLOOD COUNT 2.95 M/UL (4.70-6.10); RED CELL DISTRIBUTION WIDTH 15.7 % (11.6-14.8); WHITE BLOOD COUNT 9.9 K/UL (4.8-10.8)
--- NOTE | 2018-05-03 11:11 | GI Progress Note ---
Assessment/Plan Problems: (1) Diabetes ICD Codes: E11.9 - Type 2 diabetes mellitus without complications SNOMED: 95177514 (2) Anemia ICD Codes: D64.9 - Anemia, unspecified SNOMED: 277520873 (3) Choledocholithiasis with acute cholecystitis ICD Codes: K80.42 - Calculus of bile duct with acute cholecystitis without obstruction SNOMED: 25626086 (4) Dehydration ICD Codes: E86.0 - Dehydration SNOMED: 06555237 (5) Gall bladder stones ICD Codes: K80.20 - Calculus of gallbladder without cholecystitis without obstruction SNOMED: 737398461 Status: stable Status Narrative Discussed with Dr. Lambert Assessment/Plan SUMMARY OF FINDINGS: 1. Choledocholithiasis. 2. Status post ERCP, sphincterotomy, stone removal. Onset of dark tarry stools Status post EGD SUMMARY OF FINDINGS: Some retained food material in the stomach making examination somewhat limited, otherwise normal upper endoscopy examination. RECOMMENDATIONS: 1. Follow up biopsy results and treat accordingly. 2. Resume diet. PRN transfusions PPI follow labs The patient was seen and examined at bedside and all new and available data was reviewed in the patients chart. I agree with the above findings, impression and plan. (Patient seen earlier today. Signature stamp does not reflect patient encounter time.). - León Lambert MD Subjective Subjective No complaint of rectal bleeding Still has diarrhea Objective Last 24 Hour Vital Signs Date Time Temp Pulse Resp B/P (MAP) Pulse Ox O2 Delivery O2 Flow Rate FiO2 05/03/18 09:00 69 85/45 05/03/18 08:00 97.3 69 17 85/45 (58) 97 05/03/18 04:23 98.3 76 17 140/75 (96) 99 05/03/18 00:00 98.1 72 18 152/70 (97) 99 05/02/18 21:00 Room Air 05/02/18 20:28 98.6 80 18 117/76 (90) 99 05/02/18 16:00 98.4 73 18 114/67 (83) 99 05/02/18 12:15 71 160/78 05/02/18 12:00 98.2 77 18 161/87 (111) 98 Intake and Output 05/02/18 05/03/18 19:00 07:00 Intake Total 1200 ml 760 ml Output Total 250 ml Balance 950 ml 760 ml Intake Oral 600 ml 360 ml IV Total 600 ml 400 ml Output Urine Total 250 ml # Voids 3 4 # Bowel Movements 2 Laboratory Tests Test 05/03/18 04:55 05/03/18 08:40 Sodium Level 139 MMOL/L (136-145) Potassium Level 4.8 MMOL/L (3.5-5.1) Chloride Level 106 MMOL/L (98-107) Carbon Dioxide Level 23 MMOL/L (21-32) Anion Gap 10 mmol/L (5-15) Blood Urea Nitrogen 18 mg/dL (7-18) Creatinine 1.5 MG/DL (0.55-1.30) H Estimat Glomerular Filtration Rate 47.4 mL/min (>60) Glucose Level 247 MG/DL (74-106) H Uric Acid 4.3 MG/DL (2.6-7.2) Calcium Level 8.8 MG/DL (8.5-10.1) Phosphorus Level 3.5 MG/DL (2.5-4.9) Magnesium Level 1.4 MG/DL (1.8-2.4) L Total Bilirubin 0.4 MG/DL (0.2-1.0) Aspartate Amino Transf (AST/SGOT) 36 U/L (15-37) Alanine Aminotransferase (ALT/SGPT) 40 U/L (12-78) Alkaline Phosphatase 171 U/L (46-116) H Total Protein 6.8 G/DL (6.4-8.2) Albumin 2.8 G/DL (3.4-5.0) L Globulin 4.0 g/dL Albumin/Globulin Ratio 0.7 (1.0-2.7) L Amylase Level 105 U/L (25-115) Lipase 1173 U/L (73-393) H White Blood Count 9.9 K/UL (4.8-10.8) Red Blood Count 2.95 M/UL (4.70-6.10) L Hemoglobin 8.9 G/DL (14.2-18.0) L Hematocrit 27.6 % (42.0-52.0) L Mean Corpuscular Volume 94 FL (80-99) Mean Corpuscular Hemoglobin 30.3 PG (27.0-31.0) Mean Corpuscular Hemoglobin Concent 32.4 G/DL (32.0-36.0) Red Cell Distribution Width 15.7 % (11.6-14.8) H Platelet Count 191 K/UL (150-450) Mean Platelet Volume 8.0 FL (6.5-10.1) Neutrophils (%) (Auto) 65.1 % (45.0-75.0) Lymphocytes (%) (Auto) 19.4 % (20.0-45.0) L Monocytes (%) (Auto) 8.1 % (1.0-10.0) Eosinophils (%) (Auto) 6.4 % (0.0-3.0) H Basophils (%) (Auto) 1.0 % (0.0-2.0) Height (Feet): 5 Height (Inches): 5.00 Weight (Pounds): 106 General Appearance: WD/WN, no apparent distress, alert, thin Cardiovascular: normal rate Respiratory/Chest: normal breath sounds, no respiratory distress Abdominal Exam: normal bowel sounds, non tender, soft Extremities: normal range of motion, non-tender Lori Douglass NP May 03, 2018 11:11
--- NOTE | 2018-05-03 11:25 | Infectious Diseases Prog Note ---
Assessment/Plan Assessment/Plan antibiotics : none A 1. klebsiella UTI s/p rx 2. cholangitis s/p rx 3. gall stones 4. choledocholithiasis 5. diabetes mellitus 6. hypertension 7. renal failure 8. leucocytosis resolved P 1. continue off antibiotics Subjective Constitutional: Denies: fever, chills Respiratory: Denies: shortness of breath, dry cough Gastrointestinal/Abdominal: Reports: diarrhea; Denies: nausea, vomiting Musculoskeletal: Denies: pain Allergies: Coded Allergies: No Known Allergies (Unverified , 04/21/18) Objective Vital Signs Last 24 Hour Vital Signs Date Time Temp Pulse Resp B/P (MAP) Pulse Ox O2 Delivery O2 Flow Rate FiO2 05/03/18 09:00 69 85/45 05/03/18 08:00 97.3 69 17 85/45 (58) 97 05/03/18 04:23 98.3 76 17 140/75 (96) 99 05/03/18 00:00 98.1 72 18 152/70 (97) 99 05/02/18 21:00 Room Air 05/02/18 20:28 98.6 80 18 117/76 (90) 99 05/02/18 16:00 98.4 73 18 114/67 (83) 99 05/02/18 12:15 71 160/78 05/02/18 12:00 98.2 77 18 161/87 (111) 98 Height (Feet): 5 Height (Inches): 5.00 Weight (Pounds): 106 Respiratory/Chest: lungs clear Cardiovascular: normal rate, regular rhythm, no gallop/murmur Abdomen: soft, non tender Extremities: no edema Laboratory Tests Test 05/03/18 04:55 05/03/18 08:40 Sodium Level 139 MMOL/L (136-145) Potassium Level 4.8 MMOL/L (3.5-5.1) Chloride Level 106 MMOL/L (98-107) Carbon Dioxide Level 23 MMOL/L (21-32) Anion Gap 10 mmol/L (5-15) Blood Urea Nitrogen 18 mg/dL (7-18) Creatinine 1.5 MG/DL (0.55-1.30) H Estimat Glomerular Filtration Rate 47.4 mL/min (>60) Glucose Level 247 MG/DL (74-106) H Uric Acid 4.3 MG/DL (2.6-7.2) Calcium Level 8.8 MG/DL (8.5-10.1) Phosphorus Level 3.5 MG/DL (2.5-4.9) Magnesium Level 1.4 MG/DL (1.8-2.4) L Total Bilirubin 0.4 MG/DL (0.2-1.0) Aspartate Amino Transf (AST/SGOT) 36 U/L (15-37) Alanine Aminotransferase (ALT/SGPT) 40 U/L (12-78) Alkaline Phosphatase 171 U/L (46-116) H Total Protein 6.8 G/DL (6.4-8.2) Albumin 2.8 G/DL (3.4-5.0) L Globulin 4.0 g/dL Albumin/Globulin Ratio 0.7 (1.0-2.7) L Amylase Level 105 U/L (25-115) Lipase 1173 U/L (73-393) H White Blood Count 9.9 K/UL (4.8-10.8) Red Blood Count 2.95 M/UL (4.70-6.10) L Hemoglobin 8.9 G/DL (14.2-18.0) L Hematocrit 27.6 % (42.0-52.0) L Mean Corpuscular Volume 94 FL (80-99) Mean Corpuscular Hemoglobin 30.3 PG (27.0-31.0) Mean Corpuscular Hemoglobin Concent 32.4 G/DL (32.0-36.0) Red Cell Distribution Width 15.7 % (11.6-14.8) H Platelet Count 191 K/UL (150-450) Mean Platelet Volume 8.0 FL (6.5-10.1) Neutrophils (%) (Auto) 65.1 % (45.0-75.0) Lymphocytes (%) (Auto) 19.4 % (20.0-45.0) L Monocytes (%) (Auto) 8.1 % (1.0-10.0) Eosinophils (%) (Auto) 6.4 % (0.0-3.0) H Basophils (%) (Auto) 1.0 % (0.0-2.0) Current Medications Medications (Trade) Dose Ordered Sig/Jamal Route PRN Reason Start Time Stop Time Status Last Admin Dose Admin Acetaminophen (Tylenol) 500 mg Q4H PRN ORAL Mild Pain/Temp > 100.5 04/24/18 14:00 05/23/18 13:59 Amlodipine Besylate (Norvasc) 10 mg DAILY ORAL 05/03/18 09:00 05/29/18 21:03 Dextrose (Dextrose 50%) 25 ml Q30M PRN IV Hypoglycemia 04/24/18 14:00 05/21/18 10:59 Dextrose (Dextrose 50%) 50 ml Q30M PRN IV Hypoglycemia 04/24/18 14:00 05/21/18 10:59 Folic Acid (Folate) 3 mg DAILY ORAL 04/25/18 09:00 05/22/18 17:14 05/03/18 09:01 Hydralazine HCl (Apresoline) 25 mg Q4H PRN ORAL bp over 160 syst 04/26/18 13:15 05/26/18 13:14 04/27/18 23:33 Insulin Aspart (NovoLOG) BEFORE MEALS AND HS SUBQ 04/24/18 16:30 05/21/18 11:29 05/03/18 06:15 Loperamide HCl (Imodium) 2 mg Q4H PRN ORAL Diarrhea 05/02/18 15:39 06/01/18 15:38 05/02/18 18:58 Magnesium Sulfate 100 ml @ 100 mls/hr Q1H IVPB 05/03/18 10:30 05/03/18 14:29 Pantoprazole (Protonix) 40 mg DAILY ORAL 05/03/18 09:00 05/31/18 20:59 05/03/18 09:01 Sodium Chloride 1,000 ml @ 100 mls/hr Q10H ONCE IV 05/03/18 10:03 05/03/18 20:02 Tamsulosin HCl (Flomax) 0.4 mg BEDTIME ORAL 05/02/18 21:00 06/01/18 20:59 05/02/18 20:24 Paolo Napier MD May 03, 2018 11:25
[2018-05-03 12:00] VITALS: BP 117/71
--- NOTE | 2018-05-03 14:58 | General Progress Note ---
Assessment/Plan Problem List: (1) ARF (acute renal failure) ICD Codes: N17.9 - Acute kidney failure, unspecified SNOMED: 27131862 Qualifiers: Qualified Codes: N17.9 - Acute kidney failure, unspecified (2) Hypovolemic shock ICD Codes: R57.1 - Hypovolemic shock SNOMED: 19963159 (3) JONA (acute kidney injury) ICD Codes: N17.9 - Acute kidney failure, unspecified SNOMED: 43329177 Status: progressing Assessment/Plan azotemia improved intermittent gi bleed afebrile reviewed chart and labs acute cholycystitis improving anemia no abdominal pain Subjective ROS Limited/Unobtainable: Yes Allergies: Coded Allergies: No Known Allergies (Unverified , 04/21/18) Subjective general pain Objective Last 24 Hour Vital Signs Date Time Temp Pulse Resp B/P (MAP) Pulse Ox O2 Delivery O2 Flow Rate FiO2 05/03/18 12:00 98.1 74 19 117/71 (86) 99 05/03/18 09:00 Room Air 05/03/18 09:00 69 85/45 05/03/18 08:00 97.3 69 17 85/45 (58) 97 05/03/18 04:23 98.3 76 17 140/75 (96) 99 05/03/18 00:00 98.1 72 18 152/70 (97) 99 05/02/18 21:00 Room Air 05/02/18 20:28 98.6 80 18 117/76 (90) 99 05/02/18 16:00 98.4 73 18 114/67 (83) 99 Intake and Output 05/02/18 05/03/18 19:00 07:00 Intake Total 1200 ml 760 ml Output Total 250 ml Balance 950 ml 760 ml Intake Oral 600 ml 360 ml IV Total 600 ml 400 ml Output Urine Total 250 ml # Voids 3 4 # Bowel Movements 2 Laboratory Tests 05/03/18 04:55: Sodium Level 139, Potassium Level 4.8, Chloride Level 106, Carbon Dioxide Level 23, Anion Gap 10, Blood Urea Nitrogen 18, Creatinine 1.5H, Estimat Glomerular Filtration Rate 47.4, Glucose Level 247H, Uric Acid 4.3, Calcium Level 8.8, Phosphorus Level 3.5, Magnesium Level 1.4L, Total Bilirubin 0.4, Aspartate Amino Transf (AST/SGOT) 36, Alanine Aminotransferase (ALT/SGPT) 40, Alkaline Phosphatase 171H, Total Protein 6.8, Albumin 2.8L, Globulin 4.0, Albumin/ Globulin Ratio 0.7L, Amylase Level 105, Lipase 1173H 05/03/18 08:40: White Blood Count 9.9, Red Blood Count 2.95L, Hemoglobin 8.9L, Hematocrit 27.6L , Mean Corpuscular Volume 94, Mean Corpuscular Hemoglobin 30.3, Mean Corpuscular Hemoglobin Concent 32.4, Red Cell Distribution Width 15.7H, Platelet Count 191, Mean Platelet Volume 8.0, Neutrophils (%) (Auto) 65.1, Lymphocytes (%) (Auto) 19.4L, Monocytes (%) (Auto) 8.1, Eosinophils (%) (Auto) 6.4H, Basophils (%) (Auto) 1.0 Height (Feet): 5 Height (Inches): 5.00 Weight (Pounds): 106 Neck: supple Cardiovascular: normal rate Respiratory/Chest: lungs clear Oksana Casey MD May 03, 2018 14:58
[2018-05-03 16:00] VITALS: BP 150/81
--- NOTE | 2018-05-03 16:07 | General Progress Note ---
Assessment/Plan Assessment/Plan Assessment and Recs: # Anemia of chronic disease - likely multifactorial and h/h has been relatively stable --> Anemia workup has been ordered --> No evidence of hemolysis is noted, peripheral smear has been reviewed. --> Hgb goal >7. Transfuse prn. --> Epogen or iron at this time is not particularly indicated # Thrombocytopenia likely due to liver disease/cirrhosis-->resolved --> Medications have been reviewed --> if the plt count less than 10k, transfuse immediately. If less than 20k and febrile, transfuse --> If less than 50k and bleeding, transfuse. If neurosurgical bleed, transfuse as well # Sepsis - continue antibiotics with ID service, appreciate recs --> likely due to gallstone pancreatitis # Dehydration --> per renal # Choledocholithiasis with acute cholecystitis --> ERCP to be scheduled 04/26 # Acute cholecystitis --> bowel regime, ppi --> surg following The timing of this note does not necessarily reflect the time of the patient was seen. Greatly appreciate consultation! Subjective Constitutional: Denies: no symptoms, chills, diaphoresis, fever, malaise, weakness, other HEENT: Denies: no symptoms, eye pain, blurred vision, tearing, double vision, ear pain, ear discharge, nose pain, nose congestion, throat pain, throat swelling, mouth pain, mouth swelling, other Cardiovascular: Denies: no symptoms, chest pain, edema, irregular heart rate, lightheadedness, palpitations, syncope, other Respiratory: Denies: no symptoms, cough, orthopnea, shortness of breath, SOB with excertion, SOB at rest, sputum, stridor, wheezing, other Gastrointestinal/Abdominal: Denies: no symptoms, abdomen distended, abdominal pain, black stools, tarry stools, blood in stool, constipated, diarrhea, difficulty swallowing, nausea, poor appetite, poor fluid intake, rectal bleeding , vomiting, other Genitourinary: Denies: no symptoms, burning, discharge, frequency, flank pain, hematuria, incontinence, pain, urgency, other Neurologic/Psychiatric: Denies: no symptoms, anxiety, depressed, emotional problems, headache, numbness, paresthesia, pre-existing deficit, seizure, tingling, tremors, weakness, other Endocrine: Denies: no symptoms, excessive sweating, flushing, intolerance to cold, intolerance to heat, increased hunger, increased thirst, increased urine, unexplained weight gain, unexplained weight loss, other Hematologic/Lymphatic: Denies: no symptoms, anemia, easy bleeding, easy bruising, other Allergies: Coded Allergies: No Known Allergies (Unverified , 04/21/18) Subjective 04/26: seen by bedside, awake,comfortable, no acute events, pending ERCP today 04/27: seen by bedside,awake, comfortable, abdominal pain resolved, s/p ercp with stone extraction, pancreatitis resolving 04/28: EGD scheduled for tomorrow, no acute distress. 04/29: Patient had EGD today, awake alert and oriented, no acute distress reported 04/30: had endoscopy yesterday, received prbc, hgb 7.6 05/02: seen by bedside, awake, comfortable Objective Last 24 Hour Vital Signs Date Time Temp Pulse Resp B/P (MAP) Pulse Ox O2 Delivery O2 Flow Rate FiO2 05/03/18 12:00 98.1 74 19 117/71 (86) 99 05/03/18 09:00 Room Air 05/03/18 09:00 69 85/45 05/03/18 08:00 97.3 69 17 85/45 (58) 97 05/03/18 04:23 98.3 76 17 140/75 (96) 99 05/03/18 00:00 98.1 72 18 152/70 (97) 99 05/02/18 21:00 Room Air 05/02/18 20:28 98.6 80 18 117/76 (90) 99 Intake and Output 05/02/18 05/03/18 19:00 07:00 Intake Total 1200 ml 760 ml Output Total 250 ml Balance 950 ml 760 ml Intake Oral 600 ml 360 ml IV Total 600 ml 400 ml Output Urine Total 250 ml # Voids 3 4 # Bowel Movements 2 Laboratory Tests 05/03/18 04:55: Sodium Level 139, Potassium Level 4.8, Chloride Level 106, Carbon Dioxide Level 23, Anion Gap 10, Blood Urea Nitrogen 18, Creatinine 1.5H, Estimat Glomerular Filtration Rate 47.4, Glucose Level 247H, Uric Acid 4.3, Calcium Level 8.8, Phosphorus Level 3.5, Magnesium Level 1.4L, Total Bilirubin 0.4, Aspartate Amino Transf (AST/SGOT) 36, Alanine Aminotransferase (ALT/SGPT) 40, Alkaline Phosphatase 171H, Total Protein 6.8, Albumin 2.8L, Globulin 4.0, Albumin/ Globulin Ratio 0.7L, Amylase Level 105, Lipase 1173H 05/03/18 08:40: White Blood Count 9.9, Red Blood Count 2.95L, Hemoglobin 8.9L, Hematocrit 27.6L , Mean Corpuscular Volume 94, Mean Corpuscular Hemoglobin 30.3, Mean Corpuscular Hemoglobin Concent 32.4, Red Cell Distribution Width 15.7H, Platelet Count 191, Mean Platelet Volume 8.0, Neutrophils (%) (Auto) 65.1, Lymphocytes (%) (Auto) 19.4L, Monocytes (%) (Auto) 8.1, Eosinophils (%) (Auto) 6.4H, Basophils (%) (Auto) 1.0 Height (Feet): 5 Height (Inches): 5.00 Weight (Pounds): 106 Objective General Appearance: well appearing, no apparent distress, alert, thin Respiratory: normal breath sounds, no respiratory distress Cardiovascular: normal rate Gastrointestinal: normal inspection, non tender, soft Genitourinary: deferred Musculoskeletal: normal inspection, back normal Neurologic: normal inspection, alert, oriented x3, responsive Guero Hernandez MD May 03, 2018 16:07
--- NOTE | 2018-05-03 16:17 | Surgery Progress Note ---
Surgery Progress Note Objective Last 24 Hour Vital Signs Date Time Temp Pulse Resp B/P (MAP) Pulse Ox O2 Delivery O2 Flow Rate FiO2 05/03/18 12:00 98.1 74 19 117/71 (86) 99 05/03/18 09:00 Room Air 05/03/18 09:00 69 85/45 05/03/18 08:00 97.3 69 17 85/45 (58) 97 05/03/18 04:23 98.3 76 17 140/75 (96) 99 05/03/18 00:00 98.1 72 18 152/70 (97) 99 05/02/18 21:00 Room Air 05/02/18 20:28 98.6 80 18 117/76 (90) 99 I&O Intake and Output 05/02/18 05/03/18 19:00 07:00 Intake Total 1200 ml 760 ml Output Total 250 ml Balance 950 ml 760 ml Intake Oral 600 ml 360 ml IV Total 600 ml 400 ml Output Urine Total 250 ml # Voids 3 4 # Bowel Movements 2 Laboratory Tests Test 05/03/18 04:55 05/03/18 08:40 Sodium Level 139 MMOL/L (136-145) Potassium Level 4.8 MMOL/L (3.5-5.1) Chloride Level 106 MMOL/L (98-107) Carbon Dioxide Level 23 MMOL/L (21-32) Anion Gap 10 mmol/L (5-15) Blood Urea Nitrogen 18 mg/dL (7-18) Creatinine 1.5 MG/DL (0.55-1.30) H Estimat Glomerular Filtration Rate 47.4 mL/min (>60) Glucose Level 247 MG/DL (74-106) H Uric Acid 4.3 MG/DL (2.6-7.2) Calcium Level 8.8 MG/DL (8.5-10.1) Phosphorus Level 3.5 MG/DL (2.5-4.9) Magnesium Level 1.4 MG/DL (1.8-2.4) L Total Bilirubin 0.4 MG/DL (0.2-1.0) Aspartate Amino Transf (AST/SGOT) 36 U/L (15-37) Alanine Aminotransferase (ALT/SGPT) 40 U/L (12-78) Alkaline Phosphatase 171 U/L (46-116) H Total Protein 6.8 G/DL (6.4-8.2) Albumin 2.8 G/DL (3.4-5.0) L Globulin 4.0 g/dL Albumin/Globulin Ratio 0.7 (1.0-2.7) L Amylase Level 105 U/L (25-115) Lipase 1173 U/L (73-393) H White Blood Count 9.9 K/UL (4.8-10.8) Red Blood Count 2.95 M/UL (4.70-6.10) L Hemoglobin 8.9 G/DL (14.2-18.0) L Hematocrit 27.6 % (42.0-52.0) L Mean Corpuscular Volume 94 FL (80-99) Mean Corpuscular Hemoglobin 30.3 PG (27.0-31.0) Mean Corpuscular Hemoglobin Concent 32.4 G/DL (32.0-36.0) Red Cell Distribution Width 15.7 % (11.6-14.8) H Platelet Count 191 K/UL (150-450) Mean Platelet Volume 8.0 FL (6.5-10.1) Neutrophils (%) (Auto) 65.1 % (45.0-75.0) Lymphocytes (%) (Auto) 19.4 % (20.0-45.0) L Monocytes (%) (Auto) 8.1 % (1.0-10.0) Eosinophils (%) (Auto) 6.4 % (0.0-3.0) H Basophils (%) (Auto) 1.0 % (0.0-2.0) Plan Problems: (1) Acute cholecystitis Assessment & Plan: US with Distended urinary bladder. Torres catheter not visualized but present. Clinical evaluation is needed. Recommend removal of the Torres catheter and replacement. Mild pelvocaliectasis noted which is likely on the basis of the distended bladder. Suspected choledocholithiasis with the one or more stones in the distal common bile duct. Moderate biliary ductal dilatation demonstrated. Cholelithiasis with distention of the gallbladder and wall thickening. Leukocytosis Hypotensive shock Abnormal LFT's. Possible choledocholithiasis MRI reviewed. likely gallstone pancreatitis with choledocholithiasis. labs improving jennifer/lip improved s/p ercp with stone extration recovering. s/p egd without bleeding responded well to prbc -diet as tolerated -Abx as per ID -no acute surgical intervention planned -elective cholecystectomy in 6 weeks. had significant acute pancreatitis with sepsis and would benefit from recovery for decreased inflammation prior to cholecystectomy -d/c planning -thank you for this consult. will follow with recs. (2) Hypovolemic shock (3) Rectal bleeding Assessment & Plan: hold discharge had blood in rectal vault and bloody BM discussed with GI plan for scope tomorrow Martin Sterling May 03, 2018 16:17
[2018-05-03 20:00] VITALS: BP 118/77
[2018-05-03] MEDS ORDERED: 1/2 NS 1000ml IV ONE (20:00)
[2018-05-03] MEDS ORDERED: D5 1/2NS 1000ml IV ONE (20:05)
[2018-05-03] MEDS: Tamsulosin 0.4mg cap ORAL SCH (20:25)
[2018-05-03] MEDS: Loperamide 2mg cap ORAL PRN (20:25)
--- NOTE | 2018-05-03 21:55 | Cardiology Progress Note ---
Assessment/Plan Assessment/Plan 1. Septic shock, resolved, fluctuating BP, Echo reveals normal LV systolic and diastolic function. 2. JONA, creatinine up to 1.5. 3. History of diabetes mellitus. 4. Hypertension, optimize lisinopril and amlodipine low dose. Hydralazine as needed. 5. Gallstone pancreatitis. 6. Hypomagnesemia, Mg supplementation, keep Mg level >2.5. Subjective Subjective No cardiac events noted. Objective Last 24 Hour Vital Signs Date Time Temp Pulse Resp B/P (MAP) Pulse Ox O2 Delivery O2 Flow Rate FiO2 05/03/18 21:00 Room Air 05/03/18 20:00 98.0 86 18 118/77 (91) 98 05/03/18 16:00 97.7 82 18 150/81 (104) 98 05/03/18 12:00 98.1 74 19 117/71 (86) 99 05/03/18 09:00 Room Air 05/03/18 09:00 69 85/45 05/03/18 08:00 97.3 69 17 85/45 (58) 97 05/03/18 04:23 98.3 76 17 140/75 (96) 99 05/03/18 00:00 98.1 72 18 152/70 (97) 99 Intake and Output 05/02/18 05/03/18 18:59 06:59 Intake Total 1200 ml 760 ml Output Total 250 ml Balance 950 ml 760 ml Intake Oral 600 ml 360 ml IV Total 600 ml 400 ml Output Urine Total 250 ml # Voids 3 4 # Bowel Movements 2 2D Echo: LVEF 55%, RVSP 42 mmHg Laboratory Tests Test 05/03/18 04:55 05/03/18 08:40 Sodium Level 139 MMOL/L (136-145) Potassium Level 4.8 MMOL/L (3.5-5.1) Chloride Level 106 MMOL/L (98-107) Carbon Dioxide Level 23 MMOL/L (21-32) Anion Gap 10 mmol/L (5-15) Blood Urea Nitrogen 18 mg/dL (7-18) Creatinine 1.5 MG/DL (0.55-1.30) H Estimat Glomerular Filtration Rate 47.4 mL/min (>60) Glucose Level 247 MG/DL (74-106) H Uric Acid 4.3 MG/DL (2.6-7.2) Calcium Level 8.8 MG/DL (8.5-10.1) Phosphorus Level 3.5 MG/DL (2.5-4.9) Magnesium Level 1.4 MG/DL (1.8-2.4) L Total Bilirubin 0.4 MG/DL (0.2-1.0) Aspartate Amino Transf (AST/SGOT) 36 U/L (15-37) Alanine Aminotransferase (ALT/SGPT) 40 U/L (12-78) Alkaline Phosphatase 171 U/L (46-116) H Total Protein 6.8 G/DL (6.4-8.2) Albumin 2.8 G/DL (3.4-5.0) L Globulin 4.0 g/dL Albumin/Globulin Ratio 0.7 (1.0-2.7) L Amylase Level 105 U/L (25-115) Lipase 1173 U/L (73-393) H White Blood Count 9.9 K/UL (4.8-10.8) Red Blood Count 2.95 M/UL (4.70-6.10) L Hemoglobin 8.9 G/DL (14.2-18.0) L Hematocrit 27.6 % (42.0-52.0) L Mean Corpuscular Volume 94 FL (80-99) Mean Corpuscular Hemoglobin 30.3 PG (27.0-31.0) Mean Corpuscular Hemoglobin Concent 32.4 G/DL (32.0-36.0) Red Cell Distribution Width 15.7 % (11.6-14.8) H Platelet Count 191 K/UL (150-450) Mean Platelet Volume 8.0 FL (6.5-10.1) Neutrophils (%) (Auto) 65.1 % (45.0-75.0) Lymphocytes (%) (Auto) 19.4 % (20.0-45.0) L Monocytes (%) (Auto) 8.1 % (1.0-10.0) Eosinophils (%) (Auto) 6.4 % (0.0-3.0) H Basophils (%) (Auto) 1.0 % (0.0-2.0) Objective HEENT: Atraumatic, normocephalic. ENT, pupils are equal, round, and reactive to light and accommodation. Extraocular muscles intact. NECK: JVP less than 5 cm. No carotid bruit. Carotid upstrokes 2+ bilaterally. CARDIOVASCULAR SYSTEM: Normal S1, S2. Regular rate and rhythm. No murmurs, gallops, or rubs. PMI is at fourth intercostal space at midclavicular line. LUNGS: Clear to auscultation bilaterally. ABDOMEN: Soft, nontender, and nondistended. No hepatosplenomegaly. Positive bowel sounds. EXTREMITIES: No evidence of edema, clubbing, or cyanosis. Alvaro Hargrove MD May 03, 2018 21:55
[2018-05-04] VITALS: BP 125/61
[2018-05-04 04:00] VITALS: BP 128/79
[2018-05-04] MEDS: NovoLOG Insulin Flexpen SUBQ SCH ×3 (06:15→16:54)
[2018-05-04 08:00] VITALS: BP 86/48
[2018-05-04 10:22] LABS: BASOPHILS % (AUTO) 0.9 % (0.0-2.0); EOSINOPHILS % (AUTO) 6.9 % (0.0-3.0); HEMATOCRIT 27.8 % (42.0-52.0); LYMPHOCYTES % (AUTO) 15.3 % (20.0-45.0); MEAN CORPUSCULAR VOLUME 93 FL (80-99); MONOCYTES % (AUTO) 6.8 % (1.0-10.0); PLATELET COUNT 225 K/UL (150-450); RED BLOOD COUNT 2.99 M/UL (4.70-6.10); RED CELL DISTRIBUTION WIDTH 15.5 % (11.6-14.8); WHITE BLOOD COUNT 10.3 K/UL (4.8-10.8)
[2018-05-04 10:47] LABS: ANION GAP 10 mmol/L (5-15); BLOOD UREA NITROGEN 18 mg/dL (7-18); CALCIUM 8.1 MG/DL (8.5-10.1); CARBON DIOXIDE 21 MMOL/L (21-32); CHLORIDE 104 MMOL/L (98-107); CREATININE 1.3 MG/DL (0.55-1.30); SODIUM 135 MMOL/L (136-145)
--- NOTE | 2018-05-04 11:37 | Infectious Diseases Prog Note ---
Assessment/Plan Assessment/Plan A; 1. Sepsis resolved 2.Cholelithiasis/Choledocholithiasis s/p ERCP 3. Leukocytosis. resolved 4. acute renal failure, improving 5. Elevated transaminase. 6. Diabetes mellitus. 7. Hypertension. 8. Lactic acidosis. 9. Pancreatitis 10. Diarrhea, negative C. difficile test 11. GI Bleeding 12. Gastritis P: Observe off antibiotic Elective Cholecystectomy as suggested by surgeon Subjective ROS Limited/Unobtainable: No Constitutional: Reports: no symptoms Respiratory: Reports: no symptoms Cardiovascular: Reports: no symptoms Gastrointestinal/Abdominal: Reports: no symptoms Genitourinary: Reports: no symptoms Allergies: Coded Allergies: No Known Allergies (Unverified , 04/21/18) Objective Vital Signs Last 24 Hour Vital Signs Date Time Temp Pulse Resp B/P (MAP) Pulse Ox O2 Delivery O2 Flow Rate FiO2 05/04/18 09:00 Room Air 05/04/18 09:00 79 86/48 05/04/18 08:00 97.5 79 18 86/48 (61) 100 05/04/18 04:00 98.2 78 18 128/79 (95) 100 05/04/18 00:00 97.9 82 18 125/61 (82) 99 05/03/18 21:00 Room Air 05/03/18 20:00 98.0 86 18 118/77 (91) 98 05/03/18 16:00 97.7 82 18 150/81 (104) 98 05/03/18 12:00 98.1 74 19 117/71 (86) 99 Height (Feet): 5 Height (Inches): 5.00 Weight (Pounds): 106 HEENT: mucous membranes moist Respiratory/Chest: lungs clear Cardiovascular: normal rate Abdomen: soft, non tender Extremities: no edema Neurologic/Psychiatric: alert, responsive Laboratory Tests Test 05/04/18 10:14 White Blood Count 10.3 K/UL (4.8-10.8) Red Blood Count 2.99 M/UL (4.70-6.10) L Hemoglobin 9.0 G/DL (14.2-18.0) L Hematocrit 27.8 % (42.0-52.0) L Mean Corpuscular Volume 93 FL (80-99) Mean Corpuscular Hemoglobin 29.9 PG (27.0-31.0) Mean Corpuscular Hemoglobin Concent 32.3 G/DL (32.0-36.0) Red Cell Distribution Width 15.5 % (11.6-14.8) H Platelet Count 225 K/UL (150-450) Mean Platelet Volume 8.3 FL (6.5-10.1) Neutrophils (%) (Auto) 70.0 % (45.0-75.0) Lymphocytes (%) (Auto) 15.3 % (20.0-45.0) L Monocytes (%) (Auto) 6.8 % (1.0-10.0) Eosinophils (%) (Auto) 6.9 % (0.0-3.0) H Basophils (%) (Auto) 0.9 % (0.0-2.0) Sodium Level 135 MMOL/L (136-145) L Potassium Level 5.0 MMOL/L (3.5-5.1) Chloride Level 104 MMOL/L (98-107) Carbon Dioxide Level 21 MMOL/L (21-32) Anion Gap 10 mmol/L (5-15) Blood Urea Nitrogen 18 mg/dL (7-18) Creatinine 1.3 MG/DL (0.55-1.30) Estimat Glomerular Filtration Rate 55.9 mL/min (>60) Glucose Level 224 MG/DL (74-106) H Calcium Level 8.1 MG/DL (8.5-10.1) L Magnesium Level 2.4 MG/DL (1.8-2.4) Current Medications Medications (Trade) Dose Ordered Sig/Jamal Route PRN Reason Start Time Stop Time Status Last Admin Dose Admin Acetaminophen (Tylenol) 500 mg Q4H PRN ORAL Mild Pain/Temp > 100.5 04/24/18 14:00 05/23/18 13:59 Amlodipine Besylate (Norvasc) 10 mg DAILY ORAL 05/03/18 09:00 05/29/18 21:03 Dextrose (Dextrose 50%) 25 ml Q30M PRN IV Hypoglycemia 04/24/18 14:00 05/21/18 10:59 Dextrose (Dextrose 50%) 50 ml Q30M PRN IV Hypoglycemia 04/24/18 14:00 05/21/18 10:59 Folic Acid (Folate) 3 mg DAILY ORAL 04/25/18 09:00 05/22/18 17:14 05/04/18 09:16 Hydralazine HCl (Apresoline) 25 mg Q4H PRN ORAL bp over 160 syst 04/26/18 13:15 05/26/18 13:14 04/27/18 23:33 Insulin Aspart (NovoLOG) BEFORE MEALS AND HS SUBQ 04/24/18 16:30 05/21/18 11:29 05/04/18 06:15 Loperamide HCl (Imodium) 2 mg Q4H PRN ORAL Diarrhea 05/02/18 15:39 06/01/18 15:38 05/03/18 20:25 Pantoprazole (Protonix) 40 mg DAILY ORAL 05/03/18 09:00 05/31/18 20:59 05/04/18 09:16 Tamsulosin HCl (Flomax) 0.4 mg BEDTIME ORAL 05/02/18 21:00 06/01/18 20:59 05/03/18 20:25 Thai Hale MD May 04, 2018 11:37
[2018-05-04 12:00] VITALS: BP 121/65
--- NOTE | 2018-05-04 12:27 | Nephrology Progress Note ---
Assessment/Plan Problem List: (1) JONA (acute kidney injury) Assessment: Cr lowering (2) Gallstone pancreatitis (3) Anemia (4) Dehydration (5) Hypovolemic shock (6) Diabetes Assessment: with elevated HgbA1c Assessment Plan stable asymptomatic anxious to go home stable from renal stand Subjective ROS Limited/Unobtainable: No Objective Objective Last 24 Hour Vital Signs Date Time Temp Pulse Resp B/P (MAP) Pulse Ox O2 Delivery O2 Flow Rate FiO2 05/04/18 09:00 Room Air 05/04/18 09:00 79 86/48 05/04/18 08:00 97.5 79 18 86/48 (61) 100 05/04/18 04:00 98.2 78 18 128/79 (95) 100 05/04/18 00:00 97.9 82 18 125/61 (82) 99 05/03/18 21:00 Room Air 05/03/18 20:00 98.0 86 18 118/77 (91) 98 05/03/18 16:00 97.7 82 18 150/81 (104) 98 Intake and Output 05/03/18 05/04/18 19:00 07:00 Intake Total 500 ml 500 ml Output Total 240 ml 750 ml Balance 260 ml -250 ml Intake Oral 400 ml IV Total 100 ml 500 ml Output Urine Total 240 ml 750 ml # Bowel Movements 2 Laboratory Tests 05/04/18 10:14: White Blood Count 10.3, Red Blood Count 2.99L, Hemoglobin 9.0L, Hematocrit 27.8L , Mean Corpuscular Volume 93, Mean Corpuscular Hemoglobin 29.9, Mean Corpuscular Hemoglobin Concent 32.3, Red Cell Distribution Width 15.5H, Platelet Count 225, Mean Platelet Volume 8.3, Neutrophils (%) (Auto) 70.0, Lymphocytes (%) (Auto) 15.3L, Monocytes (%) (Auto) 6.8, Eosinophils (%) (Auto) 6.9H, Basophils (%) (Auto) 0.9, Sodium Level 135L, Potassium Level 5.0, Chloride Level 104, Carbon Dioxide Level 21, Anion Gap 10, Blood Urea Nitrogen 18, Creatinine 1.3, Estimat Glomerular Filtration Rate 55.9, Glucose Level 224H , Calcium Level 8.1L, Magnesium Level 2.4 Height (Feet): 5 Height (Inches): 5.00 Weight (Pounds): 106 General Appearance: no apparent distress Cardiovascular: normal rate Respiratory/Chest: lungs clear Abdomen: soft Objective no change Orlin Berrios MD May 04, 2018 12:27
--- NOTE | 2018-05-04 12:53 | GI Progress Note ---
Assessment/Plan Problems: (1) Diabetes ICD Codes: E11.9 - Type 2 diabetes mellitus without complications SNOMED: 31299603 (2) Anemia ICD Codes: D64.9 - Anemia, unspecified SNOMED: 367495212 (3) Choledocholithiasis with acute cholecystitis ICD Codes: K80.42 - Calculus of bile duct with acute cholecystitis without obstruction SNOMED: 19472901 (4) Dehydration ICD Codes: E86.0 - Dehydration SNOMED: 77544463 (5) Gall bladder stones ICD Codes: K80.20 - Calculus of gallbladder without cholecystitis without obstruction SNOMED: 444003037 Status: stable Status Narrative Discussed with Dr. Lambert. Assessment/Plan SUMMARY OF FINDINGS: 1. Choledocholithiasis. 2. Status post ERCP, sphincterotomy, stone removal. Onset of dark tarry stools, resolved. Has diarrhea. stable H&H Status post EGD SUMMARY OF FINDINGS: Some retained food material in the stomach making examination somewhat limited, otherwise normal upper endoscopy examination. RECOMMENDATIONS: okay for DC per GI standpoint 1. Follow up biopsy results and treat accordingly. 2. Resume diet. PRN transfusions PPI follow labs Imodium prn The patient was seen and examined at bedside and all new and available data was reviewed in the patients chart. I agree with the above findings, impression and plan. (Patient seen earlier today. Signature stamp does not reflect patient encounter time.). - León Lambert MD Subjective Subjective No complaint of rectal bleeding Still has diarrhea Objective Last 24 Hour Vital Signs Date Time Temp Pulse Resp B/P (MAP) Pulse Ox O2 Delivery O2 Flow Rate FiO2 05/04/18 12:00 98.2 82 16 121/65 (83) 100 05/04/18 09:00 Room Air 05/04/18 09:00 79 86/48 05/04/18 08:00 97.5 79 18 86/48 (61) 100 05/04/18 04:00 98.2 78 18 128/79 (95) 100 05/04/18 00:00 97.9 82 18 125/61 (82) 99 05/03/18 21:00 Room Air 05/03/18 20:00 98.0 86 18 118/77 (91) 98 05/03/18 16:00 97.7 82 18 150/81 (104) 98 Intake and Output 2/18/19 2/19/19 19:00 07:00 Intake Total 500 ml 500 ml Output Total 240 ml 750 ml Balance 260 ml -250 ml Intake Oral 400 ml IV Total 100 ml 500 ml Output Urine Total 240 ml 750 ml # Bowel Movements 2 Laboratory Tests Test 05/04/18 10:14 White Blood Count 10.3 K/UL (4.8-10.8) Red Blood Count 2.99 M/UL (4.70-6.10) L Hemoglobin 9.0 G/DL (14.2-18.0) L Hematocrit 27.8 % (42.0-52.0) L Mean Corpuscular Volume 93 FL (80-99) Mean Corpuscular Hemoglobin 29.9 PG (27.0-31.0) Mean Corpuscular Hemoglobin Concent 32.3 G/DL (32.0-36.0) Red Cell Distribution Width 15.5 % (11.6-14.8) H Platelet Count 225 K/UL (150-450) Mean Platelet Volume 8.3 FL (6.5-10.1) Neutrophils (%) (Auto) 70.0 % (45.0-75.0) Lymphocytes (%) (Auto) 15.3 % (20.0-45.0) L Monocytes (%) (Auto) 6.8 % (1.0-10.0) Eosinophils (%) (Auto) 6.9 % (0.0-3.0) H Basophils (%) (Auto) 0.9 % (0.0-2.0) Sodium Level 135 MMOL/L (136-145) L Potassium Level 5.0 MMOL/L (3.5-5.1) Chloride Level 104 MMOL/L (98-107) Carbon Dioxide Level 21 MMOL/L (21-32) Anion Gap 10 mmol/L (5-15) Blood Urea Nitrogen 18 mg/dL (7-18) Creatinine 1.3 MG/DL (0.55-1.30) Estimat Glomerular Filtration Rate 55.9 mL/min (>60) Glucose Level 224 MG/DL (74-106) H Calcium Level 8.1 MG/DL (8.5-10.1) L Magnesium Level 2.4 MG/DL (1.8-2.4) Height (Feet): 5 Height (Inches): 5.00 Weight (Pounds): 106 General Appearance: WD/WN, no apparent distress, alert Cardiovascular: normal rate Respiratory/Chest: normal breath sounds, no respiratory distress Abdominal Exam: normal bowel sounds, non tender, soft Extremities: normal range of motion, non-tender Lori Douglass NP May 04, 2018 12:53
[2018-05-04 16:00] VITALS: BP 88/56
--- NOTE | 2018-05-04 17:08 | General Progress Note ---
Assessment/Plan Problem List: (1) ARF (acute renal failure) ICD Codes: N17.9 - Acute kidney failure, unspecified SNOMED: 26232885 Qualifiers: Qualified Codes: N17.9 - Acute kidney failure, unspecified (2) Hypovolemic shock ICD Codes: R57.1 - Hypovolemic shock SNOMED: 43267489 (3) JONA (acute kidney injury) ICD Codes: N17.9 - Acute kidney failure, unspecified SNOMED: 97086233 Status: progressing Assessment/Plan desnt want to go to snf so dc home w hh refused to go home see dc summary Subjective ROS Limited/Unobtainable: Yes Allergies: Coded Allergies: No Known Allergies (Unverified , 04/21/18) Subjective general pain Objective Last 24 Hour Vital Signs Date Time Temp Pulse Resp B/P (MAP) Pulse Ox O2 Delivery O2 Flow Rate FiO2 05/04/18 12:00 98.2 82 16 121/65 (83) 100 05/04/18 09:00 Room Air 05/04/18 09:00 79 86/48 05/04/18 08:00 97.5 79 18 86/48 (61) 100 05/04/18 04:00 98.2 78 18 128/79 (95) 100 05/04/18 00:00 97.9 82 18 125/61 (82) 99 05/03/18 21:00 Room Air 05/03/18 20:00 98.0 86 18 118/77 (91) 98 Intake and Output 05/03/18 05/04/18 19:00 07:00 Intake Total 500 ml 500 ml Output Total 240 ml 750 ml Balance 260 ml -250 ml Intake Oral 400 ml IV Total 100 ml 500 ml Output Urine Total 240 ml 750 ml # Bowel Movements 2 Laboratory Tests 05/04/18 10:14: White Blood Count 10.3, Red Blood Count 2.99L, Hemoglobin 9.0L, Hematocrit 27.8L , Mean Corpuscular Volume 93, Mean Corpuscular Hemoglobin 29.9, Mean Corpuscular Hemoglobin Concent 32.3, Red Cell Distribution Width 15.5H, Platelet Count 225, Mean Platelet Volume 8.3, Neutrophils (%) (Auto) 70.0, Lymphocytes (%) (Auto) 15.3L, Monocytes (%) (Auto) 6.8, Eosinophils (%) (Auto) 6.9H, Basophils (%) (Auto) 0.9, Sodium Level 135L, Potassium Level 5.0, Chloride Level 104, Carbon Dioxide Level 21, Anion Gap 10, Blood Urea Nitrogen 18, Creatinine 1.3, Estimat Glomerular Filtration Rate 55.9, Glucose Level 224H , Calcium Level 8.1L, Magnesium Level 2.4 Height (Feet): 5 Height (Inches): 5.00 Weight (Pounds): 106 Neck: normal inspection Cardiovascular: regular rhythm Oksana Casey MD May 04, 2018 17:08
--- NOTE | 2018-05-04 18:25 | Surgery Progress Note ---
Surgery Progress Note Subjective Symptoms: improved, pain absent Objective Last 24 Hour Vital Signs Date Time Temp Pulse Resp B/P (MAP) Pulse Ox O2 Delivery O2 Flow Rate FiO2 05/04/18 16:00 97.6 87 16 88/56 (67) 100 05/04/18 12:00 98.2 82 16 121/65 (83) 100 05/04/18 09:00 Room Air 05/04/18 09:00 79 86/48 05/04/18 08:00 97.5 79 18 86/48 (61) 100 05/04/18 04:00 98.2 78 18 128/79 (95) 100 05/04/18 00:00 97.9 82 18 125/61 (82) 99 05/03/18 21:00 Room Air 05/03/18 20:00 98.0 86 18 118/77 (91) 98 I&O Intake and Output 05/03/18 05/04/18 19:00 07:00 Intake Total 500 ml 500 ml Output Total 240 ml 750 ml Balance 260 ml -250 ml Intake Oral 400 ml IV Total 100 ml 500 ml Output Urine Total 240 ml 750 ml # Bowel Movements 2 Dressing: other Wound: other Drains: other Cardiovascular: RSR Respiratory: clear Abdomen: soft, non-tender, present bowel sounds Extremities: other Laboratory Tests Test 05/04/18 10:14 White Blood Count 10.3 K/UL (4.8-10.8) Red Blood Count 2.99 M/UL (4.70-6.10) L Hemoglobin 9.0 G/DL (14.2-18.0) L Hematocrit 27.8 % (42.0-52.0) L Mean Corpuscular Volume 93 FL (80-99) Mean Corpuscular Hemoglobin 29.9 PG (27.0-31.0) Mean Corpuscular Hemoglobin Concent 32.3 G/DL (32.0-36.0) Red Cell Distribution Width 15.5 % (11.6-14.8) H Platelet Count 225 K/UL (150-450) Mean Platelet Volume 8.3 FL (6.5-10.1) Neutrophils (%) (Auto) 70.0 % (45.0-75.0) Lymphocytes (%) (Auto) 15.3 % (20.0-45.0) L Monocytes (%) (Auto) 6.8 % (1.0-10.0) Eosinophils (%) (Auto) 6.9 % (0.0-3.0) H Basophils (%) (Auto) 0.9 % (0.0-2.0) Sodium Level 135 MMOL/L (136-145) L Potassium Level 5.0 MMOL/L (3.5-5.1) Chloride Level 104 MMOL/L (98-107) Carbon Dioxide Level 21 MMOL/L (21-32) Anion Gap 10 mmol/L (5-15) Blood Urea Nitrogen 18 mg/dL (7-18) Creatinine 1.3 MG/DL (0.55-1.30) Estimat Glomerular Filtration Rate 55.9 mL/min (>60) Glucose Level 224 MG/DL (74-106) H Calcium Level 8.1 MG/DL (8.5-10.1) L Magnesium Level 2.4 MG/DL (1.8-2.4) Plan Problems: (1) Acute cholecystitis Assessment & Plan: US with Distended urinary bladder. Torres catheter not visualized but present. Clinical evaluation is needed. Recommend removal of the Torres catheter and replacement. Mild pelvocaliectasis noted which is likely on the basis of the distended bladder. Suspected choledocholithiasis with the one or more stones in the distal common bile duct. Moderate biliary ductal dilatation demonstrated. Cholelithiasis with distention of the gallbladder and wall thickening. Leukocytosis Hypotensive shock Abnormal LFT's. Possible choledocholithiasis MRI reviewed. likely gallstone pancreatitis with choledocholithiasis. labs improving jennifer/lip improved s/p ercp with stone extration recovering. s/p egd without bleeding responded well to prbc -diet as tolerated -Abx as per ID -no acute surgical intervention planned -elective cholecystectomy in 6 weeks. had significant acute pancreatitis with sepsis and would benefit from recovery for decreased inflammation prior to cholecystectomy -d/c planning -thank you for this consult. will follow with recs. (2) Hypovolemic shock (3) Rectal bleeding Assessment & Plan: hold discharge had blood in rectal vault and bloody BM discussed with GI plan for scope tomorrow Martin Sterling May 04, 2018 18:25
--- NOTE | 2018-05-04 21:18 | General Progress Note ---
Assessment/Plan Assessment/Plan Assessment and Recs: # Anemia of chronic disease - likely multifactorial and h/h has been relatively stable --> Anemia workup has been ordered --> No evidence of hemolysis is noted, peripheral smear has been reviewed. --> Hgb goal >7. Transfuse prn. --> Epogen or iron at this time is not particularly indicated # Thrombocytopenia likely due to liver disease/cirrhosis-->resolved --> Medications have been reviewed --> if the plt count less than 10k, transfuse immediately. If less than 20k and febrile, transfuse --> If less than 50k and bleeding, transfuse. If neurosurgical bleed, transfuse as well # Sepsis - continue antibiotics with ID service, appreciate recs --> likely due to gallstone pancreatitis # Dehydration --> per renal # Choledocholithiasis with acute cholecystitis --> ERCP to be scheduled 04/26 # Acute cholecystitis --> bowel regime, ppi --> surg following The timing of this note does not necessarily reflect the time of the patient was seen. Greatly appreciate consultation! Subjective Constitutional: Denies: no symptoms, chills, diaphoresis, fever, malaise, weakness, other HEENT: Denies: no symptoms, eye pain, blurred vision, tearing, double vision, ear pain, ear discharge, nose pain, nose congestion, throat pain, throat swelling, mouth pain, mouth swelling, other Cardiovascular: Denies: no symptoms, chest pain, edema, irregular heart rate, lightheadedness, palpitations, syncope, other Respiratory: Denies: no symptoms, cough, orthopnea, shortness of breath, SOB with excertion, SOB at rest, sputum, stridor, wheezing, other Gastrointestinal/Abdominal: Denies: no symptoms, abdomen distended, abdominal pain, black stools, tarry stools, blood in stool, constipated, diarrhea, difficulty swallowing, nausea, poor appetite, poor fluid intake, rectal bleeding , vomiting, other Genitourinary: Denies: no symptoms, burning, discharge, frequency, flank pain, hematuria, incontinence, pain, urgency, other Neurologic/Psychiatric: Denies: no symptoms, anxiety, depressed, emotional problems, headache, numbness, paresthesia, pre-existing deficit, seizure, tingling, tremors, weakness, other Endocrine: Denies: no symptoms, excessive sweating, flushing, intolerance to cold, intolerance to heat, increased hunger, increased thirst, increased urine, unexplained weight gain, unexplained weight loss, other Hematologic/Lymphatic: Denies: no symptoms, anemia, easy bleeding, easy bruising, other Allergies: Coded Allergies: No Known Allergies (Unverified , 04/21/18) Subjective 04/26: seen by bedside, awake,comfortable, no acute events, pending ERCP today 04/27: seen by bedside,awake, comfortable, abdominal pain resolved, s/p ercp with stone extraction, pancreatitis resolving 04/28: EGD scheduled for tomorrow, no acute distress. 04/29: Patient had EGD today, awake alert and oriented, no acute distress reported 04/30: had endoscopy yesterday, received prbc, hgb 7.6 05/02: seen by bedside, awake, comfortable 05/03: No acute events, No complaint of rectal bleeding, Still has diarrhea 05/04: seen by bedside, awake, comfortable, no acute distress reported. Objective Last 24 Hour Vital Signs Date Time Temp Pulse Resp B/P (MAP) Pulse Ox O2 Delivery O2 Flow Rate FiO2 05/04/18 16:00 97.6 87 16 88/56 (67) 100 05/04/18 12:00 98.2 82 16 121/65 (83) 100 05/04/18 09:00 Room Air 05/04/18 09:00 79 86/48 05/04/18 08:00 97.5 79 18 86/48 (61) 100 05/04/18 04:00 98.2 78 18 128/79 (95) 100 05/04/18 00:00 97.9 82 18 125/61 (82) 99 Intake and Output 05/03/18 05/04/18 19:00 07:00 Intake Total 500 ml 500 ml Output Total 240 ml 750 ml Balance 260 ml -250 ml Intake Oral 400 ml IV Total 100 ml 500 ml Output Urine Total 240 ml 750 ml # Bowel Movements 2 Laboratory Tests 05/04/18 10:14: White Blood Count 10.3, Red Blood Count 2.99L, Hemoglobin 9.0L, Hematocrit 27.8L , Mean Corpuscular Volume 93, Mean Corpuscular Hemoglobin 29.9, Mean Corpuscular Hemoglobin Concent 32.3, Red Cell Distribution Width 15.5H, Platelet Count 225, Mean Platelet Volume 8.3, Neutrophils (%) (Auto) 70.0, Lymphocytes (%) (Auto) 15.3L, Monocytes (%) (Auto) 6.8, Eosinophils (%) (Auto) 6.9H, Basophils (%) (Auto) 0.9, Sodium Level 135L, Potassium Level 5.0, Chloride Level 104, Carbon Dioxide Level 21, Anion Gap 10, Blood Urea Nitrogen 18, Creatinine 1.3, Estimat Glomerular Filtration Rate 55.9, Glucose Level 224H , Calcium Level 8.1L, Magnesium Level 2.4 Height (Feet): 5 Height (Inches): 5.00 Weight (Pounds): 106 Objective General Appearance: well appearing, no apparent distress, alert, thin Respiratory: normal breath sounds, no respiratory distress Cardiovascular: normal rate Gastrointestinal: normal inspection, non tender, soft Genitourinary: deferred Musculoskeletal: normal inspection, back normal Neurologic: normal inspection, alert, oriented x3, responsive Guero Hernandez MD May 04, 2018 21:18
--- NOTE | 2018-05-04 23:52 | Cardiology Progress Note ---
Assessment/Plan Assessment/Plan 1. Septic shock, resolved, fluctuating BP, Echo reveals normal LV systolic and diastolic function. 2. JONA, creatinine down to 1.3. 3. History of diabetes mellitus. 4. Hypertension, optimize lisinopril and amlodipine low dose. Hydralazine as needed. 5. Gallstone pancreatitis. 6. Hypomagnesemia, resolved. Subjective Subjective No chest pain or SOB noted. Objective Last 24 Hour Vital Signs Date Time Temp Pulse Resp B/P (MAP) Pulse Ox O2 Delivery O2 Flow Rate FiO2 05/04/18 16:00 97.6 87 16 88/56 (67) 100 05/04/18 12:00 98.2 82 16 121/65 (83) 100 05/04/18 09:00 Room Air 05/04/18 09:00 79 86/48 05/04/18 08:00 97.5 79 18 86/48 (61) 100 05/04/18 04:00 98.2 78 18 128/79 (95) 100 05/04/18 00:00 97.9 82 18 125/61 (82) 99 Intake and Output 05/03/18 05/04/18 18:59 06:59 Intake Total 400 ml 600 ml Output Total 240 ml 750 ml Balance 160 ml -150 ml Intake Oral 400 ml IV Total 600 ml Output Urine Total 240 ml 750 ml # Bowel Movements 2 2D Echo: LVEF 55%, RVSP 42 mmHg Laboratory Tests Test 05/04/18 10:14 White Blood Count 10.3 K/UL (4.8-10.8) Red Blood Count 2.99 M/UL (4.70-6.10) L Hemoglobin 9.0 G/DL (14.2-18.0) L Hematocrit 27.8 % (42.0-52.0) L Mean Corpuscular Volume 93 FL (80-99) Mean Corpuscular Hemoglobin 29.9 PG (27.0-31.0) Mean Corpuscular Hemoglobin Concent 32.3 G/DL (32.0-36.0) Red Cell Distribution Width 15.5 % (11.6-14.8) H Platelet Count 225 K/UL (150-450) Mean Platelet Volume 8.3 FL (6.5-10.1) Neutrophils (%) (Auto) 70.0 % (45.0-75.0) Lymphocytes (%) (Auto) 15.3 % (20.0-45.0) L Monocytes (%) (Auto) 6.8 % (1.0-10.0) Eosinophils (%) (Auto) 6.9 % (0.0-3.0) H Basophils (%) (Auto) 0.9 % (0.0-2.0) Sodium Level 135 MMOL/L (136-145) L Potassium Level 5.0 MMOL/L (3.5-5.1) Chloride Level 104 MMOL/L (98-107) Carbon Dioxide Level 21 MMOL/L (21-32) Anion Gap 10 mmol/L (5-15) Blood Urea Nitrogen 18 mg/dL (7-18) Creatinine 1.3 MG/DL (0.55-1.30) Estimat Glomerular Filtration Rate 55.9 mL/min (>60) Glucose Level 224 MG/DL (74-106) H Calcium Level 8.1 MG/DL (8.5-10.1) L Magnesium Level 2.4 MG/DL (1.8-2.4) Objective HEENT: Atraumatic, normocephalic. ENT, pupils are equal, round, and reactive to light and accommodation. Extraocular muscles intact. NECK: JVP less than 5 cm. No carotid bruit. Carotid upstrokes 2+ bilaterally. CARDIOVASCULAR SYSTEM: Normal S1, S2. Regular rate and rhythm. No murmurs, gallops, or rubs. PMI is at fourth intercostal space at midclavicular line. LUNGS: Clear to auscultation bilaterally. ABDOMEN: Soft, nontender, and nondistended. No hepatosplenomegaly. Positive bowel sounds. EXTREMITIES: No evidence of edema, clubbing, or cyanosis. Alvaro Hargrove MD May 04, 2018 23:52
--- NOTE | 2018-05-07 10:14 | Discharge Summary ---
Discharge Summary Discharge Summary _ DATE OF ADMISSION: 04/21/2018 DATE OF DISCHARGE: 05/04/2018 DISCHARGED BY: Dr. Casey REASON FOR ADMISSION: 62 years old male with past medical history of hypertension, diabetes, chronic Kidney disease , left hip fracture, s/p surgery about a year ago, , presented with chief complaint of generalized weakness and left leg pain. Pain was reported to be 9 out of 10 on a scale 1-10 , worse with movement and better with rest. Patient was taking Ultram at home, without significant relief. Laboratory workup revealed leukocytosis WBC 13.5, hemoglobin 10.3 hematocrit 30.8 . Sodium 133. BUN 60, creatinine 2.4, anion gap 18. Troponin negative. EKG revealed normal sinus rhythm , no acute ischemic changes. AST 115, ALT 93 . Lactic acid 1.1 . Urinalysis with evidence of pyuria and moderate bacteria, +3 protein, +2 leukocyte esterase. Chest x-ray revealed no evidence of acute cardiopulmonary pathology. Initial vital signs were stable, but while still in ED during workup developed hypotension, unresponsive to fluid bolus . Pulse oximetry was stable on room air. Patient subsequently undergone central line placement for pressors and transferred to ICU for further management. CONSULTANTS: assistant wrestling coach Dr. Hargrove pulmonary ID specialist Dr. Garcia GI specialist Dr. Lambert municipal court judge Dr. Berrios workers' compensation claims supervisor/oncologist Dr. Hernandez general surgery Dr. Sterling urologist Dr. Amador [facility]RSE: Patient admitted to ICU with aggressive fluid resuscitation, pressors and empiric antibiotics. Pressors were titrated to keep mean arterial blood pressure above 60. Hemodynamic status status was closely monitored. Venous duplex bilateral lower extremity revealed no evidence of acute DVT. Echocardiogram demonstrated preserved ejection fraction 55-60% with no evidence of left ventricular hypertrophy. No evidence of wall motion abnormality. Right ventricular systolic pressure of 42 consistent with mild to moderate pulmonary hypertension. DVT prophylaxis with subcutaneous heparin provided. Arterial duplex of bilateral lower extremity revealed minimal ischemia bilaterally in tibial arteries with no evidence of stenosis or occlusion. Minimal calcification throughout the common femoral, superficial femoral and popliteal arteries. The posterior tibial, anterior tibial and dorsalis pedis arteries were also minimally calcified. Grain Grader followed. Patient was able soon to be weaned from pressors. Patient was continue on antiplatelet therapy with aspirin. When blood pressure stabilized, antihypertensive regimen was titrated as per assistant wrestling coach to keep blood pressure under control. GI specialist followed. Lipase noted to be above 2000, amylase 990 along with elevated LFT. Urine toxicology screen was positive for opiates that patient received earlier, otehrwise negative. Serum alcohol level was negative. Abdominal ultrasound revealed distended urinary bladder , suspected choledocholithiasis with one or more stone in the distal common bile duct. Moderate biliary ductal dilatation demonstrated. Cholelithiasis with distention of the gallbladder and wall thickening. Cholecystitis was not excluded MRCP revealed multiply stones suspected within the common bile duct. Moderate biliary ductal dilatation. Multiply stones in the gallbladder. Patient subsequently undergone ERCP with sphincterotomy, balloon driller's assistant and stone extraction. Stone was removed. LFT were closely monitored and down to normal after procedure. Prior to discharge AST 36, ALT 40. Lipase trending down, still remains with some elevation. Hepatitis panel was negative. HIV test was nonreactive. General surgeon closely followed for cholecystitis . According to general surgeon , no acute surgical intervention was planned at this time. Elective cholecystectomy was recommended in 6 weeks. Patient had significant acute pancreatitis with sepsis and would benefit from recovery for decreased inflammation prior to cholecystectomy. Patient to follow-up with surgeon and schedule elective cholecystectomy in 6 weeks. Stroboscope Operator followed. Renal parameters and electrolytes were closely monitored. Nephrotoxins were avoided. Electrolytes corrected as needed. Acute kidney injury resolved and was likely secondary to dehydration and hypovolemic shock. Prior to discharge BUN 18, creatinine 1.3. Urologist seen the patient for BPH . Patient had no difficulty voiding and had no evidence of hematuria. Patient was started on Flomax with close monitoring for voiding difficulties . Infectious disease specialist followed. Patient initially was on empiric antibiotics. Blood cultures were negative. Urine culture revealed Klebsiella pneumonia and mixed gram-positive organisms. Stool for C. difficile was checked on two different occasions due to diarrhea and was negative. Patient completed antibiotic treatment in the hospital. Leukocytosis resolved, no fevers. Patient noted to be anemic with onset of dark tarry stools. Patient undergone transfusion of 2 units of packed red blood cells. Stool for occult blood was positive. Hemoglobin hematocrit were closely monitored with goal to keep hemoglobin above 7. Anemia workup revealed evidence of anemia of chronic disease , ferritin 285 , stable B12 and low folate level. Patient started on folate replacement. Patient was given IV Venofer. Prior to discharge hemoglobin 9.7 hematocrit 28.7. Patient undergone upper endoscopy with biopsy and found some retained food material in the stomach , otherwise normal normal endoscopy examination. Diet was resumed as tolerated , antiemetic were on board as needed symptomatically . Patient was able to tolerate diet. Biopsy of stomach antrum revealed mild chronic gastritis , no Helicobacter pylori was identified. Desquamated squames with fungal forms noted. Patient was continued on PPI. Imodium was recommended as needed for diarrhea. Supportive care provided. Pain management was addressed as needed. Patient clinically stabilized . Patient declined to go to long-term facility . Patient was stable for discharge home :leukocytosis resolved , no pain, LFT stable ,tolerating diet. FINAL DIAGNOSES: Hypovolemic shock Sepsis Choledocholithiasis with acute cholecystitis Status post ERCP with sphincterotomy, balloon driller's assistant and stone extraction Acute cholecystitis Klebsiella UTI , status post treatment Gallstone pancreatitis Dehydration Acute kidney injury on chronic kidney disease - improved Anemia of chronic disease Diabetes mellitus History of hypertension Diarrhea ( stool C. difficile negative) GI bleeding Chronic gastritis Abnormal LFT - resolved Folate deficiency Anion gap metabolic acidosis DISCHARGE MEDICATIONS: See Medication Reconciliation list. DISCHARGE INSTRUCTIONS: Patient was discharged home . Follow up with primary care provider in one week. Patient to follow-up with surgeon and schedule elective cholecystectomy in 6 weeks. I have been assigned to dictate discharge summary for this account. I was not involved in the patient's management. Prachi Desai NP May 07, 2018 10:14
== END 2018-05-04 18:30 | disposition home health service (06) | DRG 720 ==
LOC: EDBD 00:56 → EMR 01:09 → EDBEDREQSVC 02:55 → UNDOADMIN 03:20 → 2E 03:20 → ICU 03:20 → EDBEDREQ 04:05 → EDBEDREQSVC 11:48 → EDBEDREQ 11:48 → 2W 04-23 16:35 → 3E 04-24 13:38
PROC: 06HM33Z Insertion of Infusion Device into Right Femoral Vein, Percutaneous Approach (ICD-10-PCS; 2018-04-21)
PROC: 0FC98ZZ Extirpation of Matter from Common Bile Duct, Via Natural or Artificial Opening Endoscopic (ICD-10-PCS; principal; 2018-04-26 12:54)
PROC: 0DB78ZX Excision of Stomach, Pylorus, Via Natural or Artificial Opening Endoscopic, Diagnostic (ICD-10-PCS; 2018-04-29)
DX: A41.9 Sepsis, unspecified organism (principal); N17.0 Acute kidney failure with tubular necrosis; R57.1 Hypovolemic shock; K80.42 Calculus of bile duct with acute cholecystitis without obstruction; K85.10 Biliary acute pancreatitis without necrosis or infection; E11.22 Type 2 diabetes mellitus with diabetic chronic kidney disease; D69.6 Thrombocytopenia, unspecified; I12.9 Hypertensive chronic kidney disease with stage 1 through stage 4 chronic kidney disease, or unspecified chronic kidney disease; N18.9 Chronic kidney disease, unspecified; E87.1 Hypo-osmolality and hyponatremia; E86.0 Dehydration; D64.9 Anemia, unspecified; N40.1 Benign prostatic hyperplasia with lower urinary tract symptoms; R33.8 Other retention of urine; E83.42 Hypomagnesemia; K29.50 Unspecified chronic gastritis without bleeding; N39.0 Urinary tract infection, site not specified; B96.1 Klebsiella pneumoniae [K. pneumoniae] as the cause of diseases classified elsewhere; K62.5 Hemorrhage of anus and rectum
CPT/HCPCS: 36415; 71045; 74181; 74328; 76000; 76700; 80048; 80053; 80061; 80307; 80329; 81001; 82150; 82270; 82533; 82550; 82607; 82728; 82746; 82962; 82977; 83036; 83540; 83550; 83605; 83690; 83735; 83880; 84100; 84300; 84443; 84484; 84550; 85007; 85025; 85384; 85610; 85730; 86140; 86703; 86705; 86709; 86803; 86850; 86900; 86901; 86920; 87040; 87081; 87086; 87181; 87324; 87340; 93005; 93306; 93925; 93970; 94003; 94150; 96361; 96374; 96375; 99291; J1815; J2405; J8499

== ENCOUNTER 2020-01-07 20:24 | Inpatient (IN) | payer MEDICAID, OTHER ==
[~2020-01-07] VITALS: Ht 162.6 cm; Wt 45.6 kg
[2020-01-07 20:45] VITALS: BP 176/81
--- NOTE | 2020-01-07 20:45 | NUR ---
ED Nurse Note: ED Nurse Note: Pt BIBA from home with c/o weakness, pt reports feeling cold. pt was found on bathroom floor for unknown time, no cp or sob or fevers. Pt is AAOx4, breathing even and unlabored, no complaints of pain, pt feels cold to touch. Pt is Sinus Vamsi on the monitor HR 50s. Other vitals stable as documented.
--- NOTE | 2020-01-07 20:45 | NUR ---
Vince barnes in EDM - 01/07/20 at 2145 by MAIKOL ED Nurse Note: Pt BIBA from home with c/o severe weakness, pt was found on bathroom floor for unknown time, no cp or sob or fevers. Pt is AAOx4, breathing even and unlabored
--- NOTE | 2020-01-07 20:50 | NUR ---
ED Nurse Note: blood, COVID swab, cultures sent to lab
--- NOTE | 2020-01-07 21:08 | NUR ---
ED Nurse Note: Blood sugar 64, EDMD aware.
[2020-01-07 21:20] LABS: HEMATOCRIT 16.1 % (42.0-52.0); MEAN CORPUSCULAR VOLUME 100 FL (80-99); PLATELET COUNT 168 K/UL (150-450); RED BLOOD COUNT 1.61 M/UL (4.70-6.10); RED CELL DISTRIBUTION WIDTH 16.8 % (11.6-14.8); WHITE BLOOD COUNT 7.8 K/UL (4.8-10.8)
--- NOTE | 2020-01-07 21:28 | Emergency Room Report ---
History of Present Illness General Chief Complaint: Generalized Weakness Source: Patient, EMS (Valeriy Ledezma MD) Present Illness HPI Paramedics were called because the patient had fallen and unable to get off of the bathroom floor. He states he fell yesterday. They say he called however other say that a neighbor found him and called paramedics. Patient lives by himself apparently. Initially he refused transport but they convinced him to come because he appears cachectic and there is no one else to help him out. The patient is an insulin-dependent diabetic. The paramedics state that it is cold in the back of their ambulance but the patient does feel extremely cold to touch. Patient does take insulin for diabetes. No fevers, chills, sore throat, chest pain, palpitations, nausea, vomiting, diarrhea, dysuria, abdominal pain, shortness of breath, joint pain, rashes, depression, anxiety, visual changes, dizziness, headache. He denies passing blood per rectum or melena. The patient was admitted April 2018 with these discharge diagnoses: Hypovolemic shock Sepsis Choledocholithiasis with acute cholecystitis Status post ERCP with sphincterotomy, balloon players assistant and stone extraction Acute cholecystitis Klebsiella UTI , status post treatment Gallstone pancreatitis Dehydration Acute kidney injury on chronic kidney disease - improved Anemia of chronic disease Diabetes mellitus History of hypertension Diarrhea ( stool C. difficile negative) GI bleeding Chronic gastritis Abnormal LFT - resolved Folate deficiency Anion gap metabolic acidosis Of note is discharge creatinine was 1.3 (Valeriy Ledezma MD) Allergies: Coded Allergies: No Known Allergies (Unverified , 04/21/18) COVID-19 Screening Contact w/high risk pt: No Experienced COVID-19 symptoms?: No COVID-19 Testing performed IT SYSTEMS ANALYST: No (Valeriy Ledezma MD) Patient History Past Medical History: see triage record, old chart reviewed Social History: Denies: smoking Social History Narrative Patient lives by himself and was born in [facility] Reviewed Nursing Documentation: PMH: Agreed; PSxH: Agreed (Valeriy Ledezma MD) Nursing Documentation-PMH Hx Hypertension: Yes Hx Diabetes: Yes (Valeriy Ledezma MD) Review of Systems All Other Systems: negative except mentioned in HPI (Valeriy Ledezma MD) Physical Exam Vital Signs Date Time Temp Pulse Resp B/P (MAP) Pulse Ox O2 Delivery O2 Flow Rate FiO2 10/24/20 20:42 97.0 68 15 108/64 (79) 94 Room Air Sp02 EP Interpretation: reviewed, abnormal - Interpreted as low by me General Appearance: GCS 15, thin, other - Cold, Chronically Ill - Cachectic Head: normocephalic, atraumatic Eyes: bilateral eye PERRL, bilateral eye conjunctivae pale - Sallow ENT: dry mucus membranes Neck: full range of motion, supple, no meningismus Respiratory: chest non-tender, lungs clear, normal breath sounds Cardiovascular #1: bradycardia Cardiovascular #2: 2+ radial (R) Gastrointestinal: other - Spider habitus, decreased bowel sounds Genitourinary: no CVA tenderness Musculoskeletal: back normal, normal range of motion, no calf tenderness Neurologic: oriented - X2, DTRs symmetric, sensory intact, motor weakness - Diffuse Psychiatric: mood/affect normal Skin: pallor - Sallow and cold (Valeriy Ledezma MD) Procedures Critical Care Time Critical Care Time Total Critical Care Time: 120 min bedside evaluation and treatment excludes procedures (EKG). Reason for critical care: Acute renal failure, hyperkalemia, hypothermia, transient hypotension, transfusion, repeat evaluations, metabolic acidosis, possible pneumonia, hypoglycemia, bradycardia Possible complications: hypotension, hypertension, OK, shock, arrhythmias, metabolic acidosis, end organ damage, respiratory failure. Interventions: Warming, treatment of hyperkalemia, transfusion, treatment of metabolic acidosis, treatment of hypoglycemia Course: Patient presents with weakness. Initial Accu-Chek low and D50 ordered. Patient is hypothermic and warming measures begun. Suspect sepsis. Hemoglobin called is low. Type and Rh and blood transfusion ordered. Suspect renal failure. Potassium called is critical. Treatment of potassium ordered. Advi sement of staff regarding timing and treatment. Venous blood gas obtained with severe acidosis. Bicarbonate administered. Transiently hypotensive. Heart rate and blood pressure improved with treatment of hyperkalemia and metabolic acidosis. Initial lactate elevated. Fluid bolus had been given. Chest x-ray delayed however suggests possible congestive heart failure versus bilateral infiltrates. Antibiotics begun. Discussed with ER physician assuming care. Discussed with admitting physician. Informed consent with patient regarding transfusion. Blood transfusion begun. Consultations: nursing staff, EMS, respiratory therapy, admitting physician, manager of radiology Performed by: Dr. Ledezma Tolerated well condition = critical (Valeriy Ledezma MD) Medical Decision Making Diagnostic Impression: Primary Impression: Hypothermia Qualified Codes: T68.XXXA - Hypothermia, initial encounter Additional Impressions: Hypoglycemia Bradycardia Anemia Qualified Codes: D64.9 - Anemia, unspecified Renal failure Qualified Codes: N17.9 - Acute kidney failure, unspecified Metabolic acidosis Hyperkalemia Pancreatitis Qualified Codes: K85.90 - Acute pancreatitis without necrosis or infection, unspecified Community acquired pneumonia Qualified Codes: J18.9 - Pneumonia, unspecified organism Sepsis Qualified Codes: A41.9 - Sepsis, unspecified organism; R65.20 - Severe sepsis without septic shock; N17.9 - Acute kidney failure, unspecified Gallstones Ascites Qualified Codes: R18.8 - Other ascites ER Course Patient presents with generalized weakness. Patient with history of diabetes, feels cold. Differential includes diabetic ketoacidosis, acute myocardial infarction, sepsis, electrolyte imbalance, failure to thrive amongst others. Patient bradycardic and placed on cardiac cath rn. Patient hypothermic and warming measures begun. Extremely complicated patient most likely need to be admitted to the hospital. Accu-Chek 64. D50 given. Called with Hgb = 5. Type and rh ordered. Consider possible renal failure. CMP returns with ARF and hyperkalemia. Treatment ordered (and directed). HR better with treatment of K. Informed consent for blood transfusion. 2310 also discussed findings with patient and possible need for dialysis. BP better after tx of acidosis. Straight cath, no urine. US pending. 2338 CXR with possible infiltrates. Most likely this is pulmonary edema, but will cover with dose of Rocephin. 150 Patient signed out to Dr. Douglass. Laboratory Tests Test 01/07/20 20:50 01/07/20 21:06 01/07/20 21:39 01/07/20 22:10 White Blood Count 7.8 K/UL (4.8-10.8) Red Blood Count 1.61 M/UL (4.70-6.10) L Hemoglobin 5.0 G/DL (14.2-18.0) *L Hematocrit 16.1 % (42.0-52.0) L Mean Corpuscular Volume 100 FL (80-99) H Mean Corpuscular Hemoglobin 31.3 PG (27.0-31.0) H Mean Corpuscular Hemoglobin Concent 31.3 G/DL (32.0-36.0) L Red Cell Distribution Width 16.8 % (11.6-14.8) H Platelet Count 168 K/UL (150-450) Mean Platelet Volume 7.1 FL (6.5-10.1) Neutrophils (%) (Auto) % (45.0-75.0) Lymphocytes (%) (Auto) % (20.0-45.0) Monocytes (%) (Auto) % (1.0-10.0) Eosinophils (%) (Auto) % (0.0-3.0) Basophils (%) (Auto) % (0.0-2.0) Differential Total Cells Counted 100 Neutrophils % (Manual) 80 % (45-75) H Lymphocytes % (Manual) 16 % (20-45) L Monocytes % (Manual) 3 % (1-10) Eosinophils % (Manual) 1 % (0-3) Basophils % (Manual) 0 % (0-2) Band Neutrophils 0 % (0-8) Platelet Estimate Adequate Platelet Morphology Normal Hypochromasia 3+ Anisocytosis 3+ Macrocytosis 1+ Prothrombin Time 15.1 SEC (9.30-11.50) H Prothrombin Time INR 1.4 (0.9-1.1) H Activated Partial Thromboplast Time 55 SEC (23-33) H D-Dimer 4.11 mg/L FEU (0.00-0.49) H Sodium Level 138 MMOL/L (136-145) Potassium Level 6.6 MMOL/L (3.5-5.1) *H Chloride Level 112 MMOL/L (98-107) H Carbon Dioxide Level 6 MMOL/L (21-32) *L Anion Gap 20 mmol/L (5-15) H Blood Urea Nitrogen 158 mg/dL (7-18) H Creatinine 10.2 MG/DL (0.55-1.30) H Estimated Glomerular Filtration Rate 5.2 mL/min (>60) Glucose Level 78 MG/DL (74-106) Lactic Acid Level 2.30 mmol/L (0.4-2.0) H Calcium Level 8.0 MG/DL (8.5-10.1) L Magnesium Level 3.2 MG/DL (1.8-2.4) H Ferritin 893 NG/ML (8-388) H Total Bilirubin 0.3 MG/DL (0.2-1.0) Aspartate Amino Transferase (AST) 27 U/L (15-37) Alanine Aminotransferase (ALT) 26 U/L (12-78) Alkaline Phosphatase 116 U/L (46-116) Lactate Dehydrogenase 223 U/L (81-234) Total Creatine Kinase 422 U/L (26-308) H Troponin I 0.000 ng/mL (0.000-0.056) C-Reactive Protein, Quantitative 7.5 mg/dL (0.00-0.90) H Pro-B-Type Natriuretic Peptide 57512 pg/mL (0-125) H Total Protein 6.8 G/DL (6.4-8.2) Albumin 3.0 G/DL (3.4-5.0) L Globulin 3.8 g/dL Albumin/Globulin Ratio 0.8 (1.0-2.7) L Lipase 774 U/L (73-393) H POC Whole Blood Glucose Pending 196 MG/DL (74-106) H Venous Blood pH 6.992 Venous Blood Partial Pressure CO2 17.2 Venous Blood Partial Pressure O2 178.2 Venous Blood HCO3 4.1 Venous Blood Base Excess -24.9 Venous Blood Carboxyhemoglobin 0.2 % (0.5-1.5) L Methemoglobin 97.6 Test 01/07/20 23:45 Lactic Acid Level 1.20 mmol/L (0.66-2.22) Microbiology Date/Time Source Procedure Growth Status 01/07/20 20:50 Nasopharynx SARS-CoV-2 RdRp Gene Assay - Final Complete (Valeriy Ledezma MD) ER Course Patient signed out to me. He presents with weakness and has acute renal failure and severe anemia. Diagnostic study pending. Chest x-ray show multi lobar infiltrates. Ultrasound showed ascites and multiple gallstones. No hydronephrosis. CT head is unremarkable. Pressure stable and improved. Patient will be admitted to stepdown unit. (Demetri Douglass MD) EKG Diagnostic Results Rate: bradycardiac Rhythm: NSR ST Segments: no acute changes - No Allen waves (Valeriy Ledezma MD) Rhythm Strip Diag. Results EP Interpretation: yes Rhythm: no PVC's, no ectopy, other - Heart rate 47 (Valeriy Ledezma MD) Chest X-Ray Diagnostic Results Chest X-Ray Diagnostic Results : Chest X-Ray Ordered: Yes # of Views/Limited/Complete: 1 View Indication: Other EP Interpretation: Yes Interpretation: no effusion, no pneumothorax, other - possible infiltrates vs pulm edema. R upper arm hardware Impression: Other Electronically Signed by: Electronically signed by Valeriy Ledezma MD (Valeriy Ledezma MD) Chest X-Ray Diagnostic Results : Chest X-Ray Ordered: Yes # of Views/Limited/Complete: 1 View Indication: Shortness of Breath EP Interpretation: Yes Interpretation: no effusion, no pneumothorax, other - Multiple lobar infiltrates Impression: Other - Multi-lobar infiltrates Electronically Signed by: Demetri Douglass MD (Demetri Douglass MD) CT/MRI/US Diagnostic Results CT/MRI/US Diagnostic Results #1: Imaging Test Ordered: Abdominal ultrasound Impression Read by radiologist. Ascites. Gallstones. Pancreas unremarkable. Kidneys without hydronephrosis. CT/MRI/US Diagnostic Results #2: Imaging Test Ordered: CT head Impression Negative per radiologist (Demetri Douglass MD) Last Vital Signs Date Time Temp Pulse Resp B/P (MAP) Pulse Ox O2 Delivery O2 Flow Rate FiO2 01/08/20 00:00 97.2 57 18 115/48 100 Room Air Status: improved (Valeriy Ledezma MD) Status: improved (Demetri Douglass MD) Disposition: ADMITTED INPATIENT Condition: Critical Scripts Unable to Obtain Active Prescriptions or Reported Meds Referrals: NON PHYSICIAN (PCP) Patient Instructions: Near-Syncope, [id number] Valeriy Ledezma MD Jan 07, 2020 21:28 Demetri Douglass MD Jan 08, 2020 02:11
[2020-01-07 21:30] VITALS: BP 98/62
[2020-01-07 21:30] LABS: INR 1.4 (0.9-1.1)
--- NOTE | 2020-01-07 21:30 | NUR ---
ED Nurse Note: murray jefferson in pt.
--- NOTE | 2020-01-07 21:40 | NUR ---
ED Nurse Note: Blood sugar 196, EDMD aware
--- NOTE | 2020-01-07 21:40 | NUR ---
ED Nurse Note: pink top sent to lab
--- NOTE | 2020-01-07 21:41 | NUR ---
ED Nurse Note: EDMD aware pt unable to give urine sample at this time, EDMD says ok for now, will reattemp later.
[2020-01-07 21:46] LABS: ALANINE AMINOTRANSFERASE 26 U/L (12-78); ALBUMIN/GLOBULIN RATIO 0.8 (1.0-2.7); ALKALINE PHOSPHATASE 116 U/L (46-116); ANION GAP 20 mmol/L (5-15); ASPARTATE AMINO TRANSFERASE 27 U/L (15-37); BILIRUBIN,TOTAL 0.3 MG/DL (0.2-1.0); BLOOD UREA NITROGEN 158 mg/dL (7-18); CHLORIDE 112 MMOL/L (98-107); CREATINE KINASE 422 U/L (26-308); CREATININE 10.2 MG/DL (0.55-1.30); FERRITIN 893 NG/ML (8-388); LACTATE DEHYDROGENASE 223 U/L (81-234); SODIUM 138 MMOL/L (136-145)
[2020-01-07 21:55] LABS: CARBON DIOXIDE 6 MMOL/L (21-32); POTASSIUM 6.6 MMOL/L (3.5-5.1)
[2020-01-07 22:00] VITALS: BP 85/46
--- NOTE | 2020-01-07 22:00 | NUR ---
ED Nurse Note: EDMD aware K 6.6, Lactic 2.5, and CO2 6
--- NOTE | 2020-01-07 22:13 | NUR ---
ED Nurse Note: Respiratory called for venous blood gas and breathing treatment.
[2020-01-07] MEDS ORDERED: Calcium Gluconate 1gm/10ml vial IVP ONE (22:15)
[2020-01-07] MEDS ORDERED: Albuterol ud Inhalation HHN ONE (22:15)
[2020-01-07] MEDS ORDERED: Sodium Polystyrene Sulfonate 15gm Powder ORAL ONE (22:15)
[2020-01-07] MEDS ORDERED: Sodium Bicarbonate 50ml Carp IV ONE ×2 (22:15→23:15)
[2020-01-07] MEDS ORDERED: Insulin Human Regular 100units/ml 3ml IV ONE (22:15)
--- NOTE | 2020-01-07 22:16 | NUR ---
ED Nurse Note: microwave radio technician at bedside performing CXR
[2020-01-07 22:30] VITALS: BP 85/53
[2020-01-07 23:00] VITALS: BP 104/73
--- NOTE | 2020-01-07 23:12 | NUR ---
US tech will be here in 30 min (per X-ray)
[2020-01-07 23:30] VITALS: BP 117/72
[2020-01-07] MEDS ORDERED: Lidocaine HCl 2% Jelly 6ml Tube TOPIC ONE (23:30)
--- NOTE | 2020-01-07 23:45 | NUR ---
ED Nurse Note: repeat lactate sent to lab
--- NOTE | 2020-01-07 23:45 | NUR ---
ED Nurse Note: blood transfusion initiated.
[2020-01-08] VITALS (8 sets, daily range): BP systolic 106–141; BP diastolic 48–81
--- NOTE | 2020-01-08 00:07 | NUR ---
ED Nurse Note: US tech at bedside
--- NOTE | 2020-01-08 01:02 | NUR ---
ED Nurse Note: proc tech called to complete CXR and CT head
--- NOTE | 2020-01-08 01:05 | NUR ---
ED Nurse Note: final operations technician at bedside
--- NOTE | 2020-01-08 01:45 | NUR ---
ED Nurse Note: blood transfusion finished. Vitals signs stable, pt in stable condition.
--- NOTE | 2020-01-08 01:48 | NUR ---
ED Nurse Note: Pt went down to CT via gurney accompanied by CT staff and pharmacy technician program director. Pt in stable condition.
[2020-01-08] MEDS ORDERED: Azithromycin 500 MG in D5W 275 ML IV ONE (02:00)
[2020-01-08] MEDS ORDERED: cefTRIAXone 1 GM in D5W 55 ML IVPB ONE (02:00)
[2020-01-08] MEDS ORDERED: Azithromycin 500mg Inj ONE (02:03)
--- NOTE | 2020-01-08 02:10 | Diagnostic Imaging Report ---
EXAM: US Abdomen Complete CLINICAL HISTORY: RENAL-A TECHNIQUE: Real-time ultrasound of the abdomen with image documentation. COMPARISON: Ultrasound ABDOMEN 04/21/18 FINDINGS: Liver: Unremarkable. No mass. No intrahepatic bile duct dilation. Gallbladder: Multiple stones in the gallbladder and common bile duct (cholelithiasis/choledocholithiasis). No bladder wall is thickened to 5 mm. Common bile duct: Common bile duct is dilated to 8 mm. Pancreas: Pancreas appears unremarkable. Kidneys: Bilateral echogenic kidneys with minimal flow no hydronephrosis. Consider medical renal disease. Small right renal cyst. No stones. Spleen: Unremarkable. No splenomegaly. Aorta: Unremarkable. No aneurysm. Inferior vena cava: Unremarkable. Soft tissues: Question paraumbilical hernia. This can be further investigate with CT. Free fluid: The ascites seen throughout the abdomen. IMPRESSION: 1. Cholelithiasis and choledocholithiasis with dilatation of the common bile duct tail to 8 mm. Consider MRCP for further investigation. 2. Findings suggestive of medical renal disease. Correlate with renal function.
--- NOTE | 2020-01-08 02:10 | NUR ---
ED Nurse Note: Report given to AMARILIS Paris in SDU
--- NOTE | 2020-01-08 02:35 | NUR ---
ED Nurse Note: pt transfered to SDU accompanied by information technology advisor and RN. Pt in stable condition. Belongings and admission packet taken by RN with pt.
--- NOTE | 2020-01-08 02:45 | NUR ---
NURSE NOTES: Received report form AMARILIS Paez, pt. arrived from ER- to SDU floor, pt. appears to be A/O x's2-3 - able to make needs known, pt. appears to be in no cardiac or respiratory distress- full body assessment done- pt. 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 appears to be sating well at 99%- no distress noted- sating well on room air, urinal at bedside and within easy reach- belongings list signed and gone over with ER nurse, Right and left AC both 20G- IV intact and patent- safety measures continued, will continue to monitor pt. and with plan of care. pt. aware to push call light for assist-with in easy reach, bed locked in lowest position and side rails up x's3, Aspiration precautions observed, adn skin precautions observed, Will notify for orders. Addendum: 01/08/20 at 0323 by AIDAN HILL RN RN pt. states he takes medication for Diabetes at home- but does not remember the name- also no other medications that he is taking. Addendum: 01/08/20 at 0341 by AIDAN HILL RN RN pt. placed on [facility] as temp is little above 95.7- will continue to monitor pt. and with plan of care.
--- NOTE | 2020-01-08 02:52 | Diagnostic Imaging Report ---
EXAM: CT Head Without Intravenous Contrast CLINICAL HISTORY: ALOC TECHNIQUE: Axial computed tomography images of the head/brain without intravenous contrast. CTDI is 53.40 mGy and DLP is 1045.50 mGy-cm. One or more of the following dose reduction techniques were used: automated exposure control, adjustment of the mA and/or kV according to patient size, use of iterative reconstruction technique. COMPARISON: No relevant prior studies available. FINDINGS: Brain: No acute intracranial hemorrhage. No CT evidence of acute infarct. No mass effect or midline shift. Generalized involutional changes and chronic microangiopathic white matter disease, advanced for patient's age. Ventricles: Unremarkable. No ventriculomegaly. Bones/joints: Unremarkable. No acute fracture. Soft tissues: Unremarkable. Sinuses: Mild chronic sinusitis. Mastoid air cells: Unremarkable as visualized. No mastoid effusion. IMPRESSION: No acute intracranial process.
--- NOTE | 2020-01-08 03:52 | NUR ---
NURSE NOTES: checked pts. blood sugar- 18 with first stick- re-checked blood sugar now 19- DATABASE SPECIALIST called- pt. awake but not speaking clear sentences- sounds garbled- see DATABASE SPECIALIST sheet for full report. VS taken 108/73, pulse 44, resp 18 and pulse ox100%.
--- NOTE | 2020-01-08 04:00 | NUR ---
CURATOR OF PHOTOGRAPHY AND PRINTS Note: CURATOR OF PHOTOGRAPHY AND PRINTS was called at 0358 by , and notified MD . Pt not transferred to ICU- pt. remains stable- D50 administered-See CURATOR OF PHOTOGRAPHY AND PRINTS documentation form for full report.
--- NOTE | 2020-01-08 04:19 | NUR ---
NURSE NOTES: spoke with DR. Allan regarding new admission orders- per DR. Allan- to continue all ER admitting orders- asked doctor if I may go over all the medications to confirm which ones he would like to continue- doctor stated he will look over them tomorrow- but for now to order code status full code, D10W at 75cc/hr, NovoLog sensitive scale, AC/HS check BS, CCHO medium diet and cmp and cbc- orders carried out. Addendum: 01/08/20 at 0709 by AIDAN HILL RN RN DR. Allan aware of BIOINFORMATICS COMPUTER SCIENTIST.
--- NOTE | 2020-01-08 04:28 | Diagnostic Imaging Report ---
EXAM: XR Chest, 1 View CLINICAL HISTORY: Chest pain TECHNIQUE: Frontal view of the chest. COMPARISON: No relevant prior studies available. FINDINGS: Lungs: Skinfold suspected projecting over the peripheral aspect the right upper lobe. Ill-defined airspace disease involving right upper lobe and the peripheral aspect of the left mid lung as well as involving the left lower lobe are findings raise concern for multilobar pneumonia. Pleural space: No pleural effusion or pneumothorax. Heart: Unremarkable. No cardiomegaly. Mediastinum: Unremarkable. Bones/joints: Diffuse osteopenia. Remote plate and screw fixation of a proximal humerus fracture. IMPRESSION: 1. Multilobar pneumonia suspected in the appropriate clinical setting. 2. Skinfold suspected projecting over the peripheral aspect the right upper lobe. Consider follow-up expiratory chest radiograph for confirmation. <MYCVCSECTION> Communications: 01/08/20 01:58 Verify Receipt Verified receipt with Dr. Clancy on 01/07 01:58 (-07:00)
[2020-01-08 04:51] LABS: HEMATOCRIT 17.1 % (42.0-52.0); MEAN CORPUSCULAR VOLUME 95 FL (80-99); PLATELET COUNT 112 K/UL (150-450); RED BLOOD COUNT 1.79 M/UL (4.70-6.10); WHITE BLOOD COUNT 7.5 K/UL (4.8-10.8)
[2020-01-08] MEDS ORDERED: Dextrose 10% 1,000 ML IV SCH (05:00)
[2020-01-08 05:03] LABS: ALBUMIN 2.4 G/DL (3.4-5.0); ALBUMIN/GLOBULIN RATIO 0.8 (1.0-2.7); BILIRUBIN,TOTAL 0.4 MG/DL (0.2-1.0); CALCIUM 7.2 MG/DL (8.5-10.1); CREATININE 9.7 MG/DL (0.55-1.30)
[2020-01-08 05:09] LABS: HEMOGLOBIN 5.5 G/DL (14.2-18.0)
[2020-01-08] MEDS: NovoLOG Insulin Flexpen SUBQ SCH ×4 (05:37→21:00)
--- NOTE | 2020-01-08 07:07 | NUR ---
NURSE HAND-OFF REPORT: Important Events on Shift:hypoglycemia Patient Status: stable Diet: CCHO medium Pending Orders: Pending Results/Labs: Pending MD notification: Latest Vital Signs: Temperature 96.9 , Pulse 44 , B/P 108 /73 , Respiratory Rate 18 , O2 SAT 100 , Room Air, O2 Flow Rate . Vital Sign Comment: EKG Rhythm: Sinus Bradycardia Rhythm change?: N MD Notified?: - MD Response: Latest Mclean Fall Score: 85 Fall Risk: High Risk Safety Measures: Call light Within Reach, Bed Alarm Zone 3, Side Rails Side Rails x3, Bed position Low and Locked. Fall Precautions: Yellow Socks Yellow Gown Door Sign Patient Fall Education Report given to Piper, RN, pt. remains stable and no signs of distress noted- aware to f/u on any abnormal am labs- HGB low- and also to f/u with doctor regarding sinus bradycardia and any additional orders.
--- NOTE | 2020-01-08 07:40 | NUR ---
NURSE NOTES: Received report from Chapo/RN, Observed patient awake lying semi-olson's, resting comfortably. On room air, Saturating 100%, No acute distress/SOB noted. Breathing even and unlabored. Able to make needs known, denies pain or discomfort at this time. Patient have Ryan hugger for temperature management. Per night nurse HEATER FURNACE was called for Low BS (18). Will continue to monitor Blood sugar. Bed in low position and locked, Call light within reach, Encouraged to use call light when needed. Urinal within reach. Will continue plan of care.
--- NOTE | 2020-01-08 09:52 | NUR ---
CASE MANAGEMENT:REVIEW 64 YR OLD MALE BIBA FROM HOME (LIVES ALONE) CC; FOUND ON BATHROOM FLOOR PMH: HYPERTENSION. DM SI: PANCREATITIS. ANEMIA. SEPSIS. RENAL FAILURE. HYPERKALEMIA 97.0 68 15 85/46 94% ON RA H/H-5.0/16.1 K+6.6 CO2-6 AG+20 BUN+158 CR+10.2 IS: IV D50W IV CA GLUCONATE IV INSULIN ALBUTEROL INH IV NA HCO3 KAYEXALATE PO IV ROCEPHIN IV ROCEPHIN IV AZITHROMYCIN CT HEAD CHEST XRAY : TO SDU
[2020-01-08 10:40] LABS: HEMATOCRIT 18.2 % (42.0-52.0); MEAN CORPUSCULAR VOLUME 93 FL (80-99); PLATELET COUNT 118 K/UL (150-450); RED BLOOD COUNT 1.95 M/UL (4.70-6.10); RED CELL DISTRIBUTION WIDTH 15.5 % (11.6-14.8); WHITE BLOOD COUNT 7.3 K/UL (4.8-10.8)
[2020-01-08 10:44] LABS: HEMOGLOBIN 5.9 G/DL (14.2-18.0)
--- NOTE | 2020-01-08 11:10 | NUR ---
NURSE NOTES: Received order from Dr. Allan for 2 Units of blood transfusion and physician consult (Dr. Sellers). Order carried out
--- NOTE | 2020-01-08 11:38 | General Progress Note ---
Subjective Date patient seen: Jan 08, 2020 Constitutional: Reports: fever, malaise Cardiovascular: Reports: no symptoms Respiratory: Reports: no symptoms Gastrointestinal/Abdominal: Reports: no symptoms Neurologic/Psychiatric: Reports: weakness Hematologic/Lymphatic: Reports: no symptoms, anemia, easy bleeding, easy bruising, other Allergies: Coded Allergies: No Known Allergies (Unverified , 04/21/18) Objective Last 24 Hour Vital Signs Date Time Temp Pulse Resp B/P (MAP) Pulse Ox O2 Delivery O2 Flow Rate FiO2 01/08/20 08:00 Room Air 01/08/20 08:00 95.9 55 19 106/66 (79) 100 01/08/20 07:55 52 01/08/20 04:23 44 18 100 01/08/20 04:00 96.7 52 18 108/59 (75) 100 01/08/20 04:00 Room Air 01/08/20 03:33 46 01/08/20 03:00 Room Air 01/08/20 02:35 97.1 56 16 112/74 100 Room Air 01/08/20 02:30 95.8 53 18 109/62 (78) 100 01/08/20 02:20 Room Air 01/08/20 00:00 97.2 57 18 115/48 100 Room Air 01/07/20 23:30 97.0 59 18 117/72 100 Room Air 01/07/20 23:00 97.0 58 18 104/73 98 Room Air 01/07/20 22:30 97.0 54 16 85/53 100 Room Air 01/07/20 22:00 97.0 52 18 85/46 100 Room Air 01/07/20 21:30 97.0 50 18 98/62 100 Room Air 01/07/20 20:45 97.0 55 15 176/81 94 Room Air 01/07/20 20:45 55 15 Room Air 01/07/20 20:42 97.0 68 15 108/64 (79) 94 Room Air Intake and Output 01/07/20 01/08/20 19:00 07:00 Intake Total 1257 ml Balance 1257 ml Intake Oral 100 ml IV Total 1157 ml # Bowel Movements 2 Laboratory Tests 01/07/20 20:50: White Blood Count 7.8, Red Blood Count 1.61L, Hemoglobin 5.0*L, Hematocrit 16.1L , Mean Corpuscular Volume 100H, Mean Corpuscular Hemoglobin 31.3H, Mean Corpuscular Hemoglobin Concent 31.3L, Red Cell Distribution Width 16.8H, Platelet Count 168, Mean Platelet Volume 7.1, Neutrophils (%) (Auto) , Lymphocytes (%) (Auto) , Monocytes (%) (Auto) , Eosinophils (%) (Auto) , Basophils (%) (Auto) , Differential Total Cells Counted 100, Neutrophils % (Manual) 80H, Lymphocytes % (Manual) 16L, Monocytes % (Manual) 3, Eosinophils % (Manual) 1, Basophils % (Manual) 0, Band Neutrophils 0, Platelet Estimate Adequate, Platelet Morphology Normal, Hypochromasia 3+, Anisocytosis 3+, Macrocytosis 1+, Prothrombin Time 15.1H, Prothromb Time International Ratio 1.4H , Activated Partial Thromboplast Time 55H, D-Dimer 4.11H, Sodium Level 138, Potassium Level 6.6*H, Chloride Level 112H, Carbon Dioxide Level 6*L, Anion Gap 20H, Blood Urea Nitrogen 158H, Creatinine 10.2H, Estimat Glomerular Filtration Rate 5.2, Glucose Level 78, Lactic Acid Level 2.30H, Calcium Level 8.0L, Magnesium Level 3.2H, Ferritin 893H, Total Bilirubin 0.3, Aspartate Amino Transf (AST/SGOT) 27, Alanine Aminotransferase (ALT/SGPT) 26, Alkaline Phosphatase 116, Lactate Dehydrogenase 223, Total Creatine Kinase 422H, Troponin I 0.000, C- Reactive Protein, Quantitative 7.5H, Pro-B-Type Natriuretic Peptide 68948E, Total Protein 6.8, Albumin 3.0L, Globulin 3.8, Albumin/Globulin Ratio 0.8L, Lipase 774H 01/07/20 21:06: POC Whole Blood Glucose [Pending] 01/07/20 21:39: POC Whole Blood Glucose 196H 01/07/20 22:10: Venous Blood pH 6.992, Venous Blood Partial Pressure CO2 17.2, Venous Blood Partial Pressure O2 178.2, Venous Blood HCO3 4.1, Venous Blood Base Excess - 24.9, Venous Blood Carboxyhemoglobin 0.2L, Methemoglobin 97.6 01/07/20 23:45: Lactic Acid Level 1.20 01/08/20 03:55: POC Whole Blood Glucose 18*L 01/08/20 03:57: POC Whole Blood Glucose [Pending] 01/08/20 04:00: White Blood Count 7.5, Red Blood Count 1.79L, Hemoglobin 5.5*L, Hematocrit 17.1L , Mean Corpuscular Volume 95, Mean Corpuscular Hemoglobin 30.6, Mean Corpuscular Hemoglobin Concent 32.1, Red Cell Distribution Width 15.0H, Platelet Count 112L , Mean Platelet Volume 6.9, Neutrophils (%) (Auto) , Lymphocytes (%) (Auto) , Monocytes (%) (Auto) , Eosinophils (%) (Auto) , Basophils (%) (Auto) , Different ial Total Cells Counted 100, Neutrophils % (Manual) 88H, Lymphocytes % (Manual) 11L, Monocytes % (Manual) 1, Eosinophils % (Manual) 0, Basophils % (Manual) 0, Band Neutrophils 0, Platelet Estimate DecreasedL, Platelet Morphology Normal, Anisocytosis 1+, Sodium Level 140, Potassium Level 5.0, Chloride Level 114H, Carbon Dioxide Level 8*L, Anion Gap 19H, Blood Urea Nitrogen 145H, Creatinine 9.7H, Estimat Glomerular Filtration Rate 5.5, Glucose Level 226#H, Calcium Level 7.2L, Total Bilirubin 0.4, Aspartate Amino Transf (AST/SGOT) 23, Alanine Aminotransferase (ALT/SGPT) 22, Alkaline Phosphatase 96, Total Protein 5.5L, Albumin 2.4L, Globulin 3.1, Albumin/Globulin Ratio 0.8L 01/08/20 04:21: POC Whole Blood Glucose 137H 01/08/20 05:37: POC Whole Blood Glucose [Pending] 01/08/20 09:38: POC Whole Blood Glucose 124H 01/08/20 10:00: White Blood Count 7.3, Red Blood Count 1.95L, Hemoglobin 5.9*L, Hematocrit 18.2L , Mean Corpuscular Volume 93, Mean Corpuscular Hemoglobin 30.1, Mean Corpuscular Hemoglobin Concent 32.3, Red Cell Distribution Width 15.5H, Platelet Count 118L , Mean Platelet Volume 7.2, Neutrophils (%) (Auto) , Lymphocytes (%) (Auto) , Monocytes (%) (Auto) , Eosinophils (%) (Auto) , Basophils (%) (Auto) , Differential Total Cells Counted 100, Neutrophils % (Manual) 85H, Lymphocytes % (Manual) 13L, Monocytes % (Manual) 2, Eosinophils % (Manual) 0, Basophils % (Manual) 0, Band Neutrophils 0, Platelet Estimate DecreasedL, Platelet Morpho logy Normal, Anisocytosis 1+ 01/08/20 11:28: POC Whole Blood Glucose 152H Height (Feet): 5 Height (Inches): 8.00 Weight (Pounds): 91 General Appearance: cachetic, thin EENT: scleral icterus Neck: supple Cardiovascular: tachycardia Respiratory/Chest: lungs clear Abdomen: non tender, soft Genitourinary/Rectal: normal rectal exam Extremities: non-tender Edema: mild edema Neurologic: ward helper II-XII grossly normal Assessment/Plan Assessment/Plan: 1 anemia r/o gi bleeding 2 severe malnutrition 3 wt loss 4 fever r/o sepsis 5dm type 2 transfuse 2 more u of prbc gi eval cont ss, accue check Kamron Allan MD Jan 08, 2020 11:38
--- NOTE | 2020-01-08 12:30 | NUR ---
NURSE NOTES: Blood transfusion started, Vitals are stable. Patient is resting. Will continue to monitor.
--- NOTE | 2020-01-08 14:36 | NUR ---
CASE MANAGEMENT: Faxed CM review and clinical info (face sheet / ER MD notes / progress notes / imaging report ) to [facility] @ [phone].
--- NOTE | 2020-01-08 15:49 | Cardiology Progress Note ---
Assessment/Plan Assessment/Plan The patient is seen and examined, full consult note is dictated. Objective Last 24 Hour Vital Signs Date Time Temp Pulse Resp B/P (MAP) Pulse Ox O2 Delivery O2 Flow Rate FiO2 01/08/20 12:00 Room Air 01/08/20 12:00 95.9 55 18 128/74 (92) 100 01/08/20 11:55 57 01/08/20 08:00 Room Air 01/08/20 08:00 95.9 55 19 106/66 (79) 100 01/08/20 07:55 52 01/08/20 04:23 44 18 100 01/08/20 04:00 96.7 52 18 108/59 (75) 100 01/08/20 04:00 Room Air 01/08/20 03:33 46 01/08/20 03:00 Room Air 01/08/20 02:35 97.1 56 16 112/74 100 Room Air 01/08/20 02:30 95.8 53 18 109/62 (78) 100 01/08/20 02:20 Room Air 01/08/20 00:00 97.2 57 18 115/48 100 Room Air 01/07/20 23:30 97.0 59 18 117/72 100 Room Air 01/07/20 23:00 97.0 58 18 104/73 98 Room Air 01/07/20 22:30 97.0 54 16 85/53 100 Room Air 01/07/20 22:00 97.0 52 18 85/46 100 Room Air 01/07/20 21:30 97.0 50 18 98/62 100 Room Air 01/07/20 20:45 97.0 55 15 176/81 94 Room Air 01/07/20 20:45 55 15 Room Air 01/07/20 20:42 97.0 68 15 108/64 (79) 94 Room Air Intake and Output 01/07/20 01/08/20 19:00 07:00 Intake Total 1257 ml Balance 1257 ml Intake Oral 100 ml IV Total 1157 ml # Bowel Movements 2 Laboratory Tests Test 01/07/20 20:50 01/07/20 21:06 01/07/20 21:39 01/07/20 22:10 White Blood Count 7.8 K/UL (4.8-10.8) Red Blood Count 1.61 M/UL (4.70-6.10) L Hemoglobin 5.0 G/DL (14.2-18.0) *L Hematocrit 16.1 % (42.0-52.0) L Mean Corpuscular Volume 100 FL (80-99) H Mean Corpuscular Hemoglobin 31.3 PG (27.0-31.0) H Mean Corpuscular Hemoglobin Concent 31.3 G/DL (32.0-36.0) L Red Cell Distribution Width 16.8 % (11.6-14.8) H Platelet Count 168 K/UL (150-450) Mean Platelet Volume 7.1 FL (6.5-10.1) Neutrophils (%) (Auto) % (45.0-75.0) Lymphocytes (%) (Auto) % (20.0-45.0) Monocytes (%) (Auto) % (1.0-10.0) Eosinophils (%) (Auto) % (0.0-3.0) Basophils (%) (Auto) % (0.0-2.0) Differential Total Cells Counted 100 Neutrophils % (Manual) 80 % (45-75) H Lymphocytes % (Manual) 16 % (20-45) L Monocytes % (Manual) 3 % (1-10) Eosinophils % (Manual) 1 % (0-3) Basophils % (Manual) 0 % (0-2) Band Neutrophils 0 % (0-8) Platelet Estimate Adequate Platelet Morphology Normal Hypochromasia 3+ Anisocytosis 3+ Macrocytosis 1+ Prothrombin Time 15.1 SEC (9.30-11.50) H Prothromb Time International Ratio 1.4 (0.9-1.1) H Activated Partial Thromboplast Time 55 SEC (23-33) H D-Dimer 4.11 mg/L FEU (0.00-0.49) H Sodium Level 138 MMOL/L (136-145) Potassium Level 6.6 MMOL/L (3.5-5.1) *H Chloride Level 112 MMOL/L (98-107) H Carbon Dioxide Level 6 MMOL/L (21-32) *L Anion Gap 20 mmol/L (5-15) H Blood Urea Nitrogen 158 mg/dL (7-18) H Creatinine 10.2 MG/DL (0.55-1.30) H Estimat Glomerular Filtration Rate 5.2 mL/min (>60) Glucose Level 78 MG/DL (74-106) Lactic Acid Level 2.30 mmol/L (0.4-2.0) H Calcium Level 8.0 MG/DL (8.5-10.1) L Magnesium Level 3.2 MG/DL (1.8-2.4) H Ferritin 893 NG/ML (8-388) H Total Bilirubin 0.3 MG/DL (0.2-1.0) Aspartate Amino Transf (AST/SGOT) 27 U/L (15-37) Alanine Aminotransferase (ALT/SGPT) 26 U/L (12-78) Alkaline Phosphatase 116 U/L (46-116) Lactate Dehydrogenase 223 U/L (81-234) Total Creatine Kinase 422 U/L (26-308) H Troponin I 0.000 ng/mL (0.000-0.056) C-Reactive Protein, Quantitative 7.5 mg/dL (0.00-0.90) H Pro-B-Type Natriuretic Peptide 18717 pg/mL (0-125) H Total Protein 6.8 G/DL (6.4-8.2) Albumin 3.0 G/DL (3.4-5.0) L Globulin 3.8 g/dL Albumin/Globulin Ratio 0.8 (1.0-2.7) L Lipase 774 U/L (73-393) H POC Whole Blood Glucose Pending 196 MG/DL (74-106) H Venous Blood pH 6.992 Venous Blood Partial Pressure CO2 17.2 Venous Blood Partial Pressure O2 178.2 Venous Blood HCO3 4.1 Venous Blood Base Excess -24.9 Venous Blood Carboxyhemoglobin 0.2 % (0.5-1.5) L Methemoglobin 97.6 Test 01/07/20 23:45 01/08/20 03:55 01/08/20 03:57 01/08/20 04:00 Lactic Acid Level 1.20 mmol/L (0.66-2.22) POC Whole Blood Glucose 18 MG/DL (74-106) *L Pending White Blood Count 7.5 K/UL (4.8-10.8) Red Blood Count 1.79 M/UL (4.70-6.10) L Hemoglobin 5.5 G/DL (14.2-18.0) *L Hematocrit 17.1 % (42.0-52.0) L Mean Corpuscular Volume 95 FL (80-99) Mean Corpuscular Hemoglobin 30.6 PG (27.0-31.0) Mean Corpuscular Hemoglobin Concent 32.1 G/DL (32.0-36.0) Red Cell Distribution Width 15.0 % (11.6-14.8) H Platelet Count 112 K/UL (150-450) L Mean Platelet Volume 6.9 FL (6.5-10.1) Neutrophils (%) (Auto) % (45.0-75.0) Lymphocytes (%) (Auto) % (20.0-45.0) Monocytes (%) (Auto) % (1.0-10.0) Eosinophils (%) (Auto) % (0.0-3.0) Basophils (%) (Auto) % (0.0-2.0) Differential Total Cells Counted 100 Neutrophils % (Manual) 88 % (45-75) H Lymphocytes % (Manual) 11 % (20-45) L Monocytes % (Manual) 1 % (1-10) Eosinophils % (Manual) 0 % (0-3) Basophils % (Manual) 0 % (0-2) Band Neutrophils 0 % (0-8) Platelet Estimate Decreased L Platelet Morphology Normal Anisocytosis 1+ Sodium Level 140 MMOL/L (136-145) Potassium Level 5.0 MMOL/L (3.5-5.1) Chloride Level 114 MMOL/L (98-107) H Carbon Dioxide Level 8 MMOL/L (21-32) *L Anion Gap 19 mmol/L (5-15) H Blood Urea Nitrogen 145 mg/dL (7-18) H Creatinine 9.7 MG/DL (0.55-1.30) H Estimat Glomerular Filtration Rate 5.5 mL/min (>60) Glucose Level 226 MG/DL (74-106) #H Calcium Level 7.2 MG/DL (8.5-10.1) L Total Bilirubin 0.4 MG/DL (0.2-1.0) Aspartate Amino Transf (AST/SGOT) 23 U/L (15-37) Alanine Aminotransferase (ALT/SGPT) 22 U/L (12-78) Alkaline Phosphatase 96 U/L (46-116) Total Protein 5.5 G/DL (6.4-8.2) L Albumin 2.4 G/DL (3.4-5.0) L Globulin 3.1 g/dL Albumin/Globulin Ratio 0.8 (1.0-2.7) L Test 01/08/20 04:21 01/08/20 05:37 01/08/20 09:38 01/08/20 10:00 POC Whole Blood Glucose 137 MG/DL (74-106) H Pending 124 MG/DL (74-106) H White Blood Count 7.3 K/UL (4.8-10.8) Red Blood Count 1.95 M/UL (4.70-6.10) L Hemoglobin 5.9 G/DL (14.2-18.0) *L Hematocrit 18.2 % (42.0-52.0) L Mean Corpuscular Volume 93 FL (80-99) Mean Corpuscular Hemoglobin 30.1 PG (27.0-31.0) Mean Corpuscular Hemoglobin Concent 32.3 G/DL (32.0-36.0) Red Cell Distribution Width 15.5 % (11.6-14.8) H Platelet Count 118 K/UL (150-450) L Mean Platelet Volume 7.2 FL (6.5-10.1) Neutrophils (%) (Auto) % (45.0-75.0) Lymphocytes (%) (Auto) % (20.0-45.0) Monocytes (%) (Auto) % (1.0-10.0) Eosinophils (%) (Auto) % (0.0-3.0) Basophils (%) (Auto) % (0.0-2.0) Differential Total Cells Counted 100 Neutrophils % (Manual) 85 % (45-75) H Lymphocytes % (Manual) 13 % (20-45) L Monocytes % (Manual) 2 % (1-10) Eosinophils % (Manual) 0 % (0-3) Basophils % (Manual) 0 % (0-2) Band Neutrophils 0 % (0-8) Platelet Estimate Decreased L Platelet Morphology Normal Anisocytosis 1+ Test 01/08/20 11:28 POC Whole Blood Glucose 152 MG/DL (74-106) H Microbiology Date/Time Source Procedure Growth Status 01/07/20 20:50 Nasopharynx SARS-CoV-2 RdRp Gene Assay - Final Complete Alvaro Hargrove MD Jan 08, 2020 15:49
--- NOTE | 2020-01-08 17:18 | NUR ---
NURSE NOTES: Second unit of blood transfusion started, Vitals are stable. Patient is resting. Denies discomfort. Will continue to monitor.
--- NOTE | 2020-01-08 17:30 | Consultation ---
DATE OF CONSULTATION: 01/08/2020 CARDIOLOGY CONSULTATION CONSULTING PHYSICIAN: Alvaro Hargrove MD. REFERRING PHYSICIAN: Alex Allan MD. REASON FOR CONSULTATION: Management of bradycardia. HISTORY OF PRESENT ILLNESS: The patient is a very unfortunate 64-year-old gentleman, who was found by the neighbor bathroom floor with inability to rise from the floor, also severe cachexia and generalized weakness. Apparently, the patient did not want to be taken to the hospital initially, but he was convinced that requires to be seen by medical team in the hospital. The patient apparently was in this facility back in April 2018 and was diagnosed with gallstone pancreatitis, status post ERCP and sphincterotomy and stone extraction. Also history of Klebsiella UTI and acute kidney injury, which was improved. Also diabetes mellitus and hypovolemic and septic shock for which he received antibiotics and recovered. At that time, the patient had 2D echocardiography, which did show normal LV systolic and diastolic function with mild pulmonary hypertension and RVSP of approximately 41 mmHg, right atrial pressure was elevated at 15 mmHg according to the 2D echocardiography in April 2018. At the time of this evaluation and upon arrival to the emergency department, blood pressure was 108/64 mmHg, heart rate was 68. A 12-lead electrocardiogram was significant for sinus bradycardia with no acute ischemia. The patient was, however, found to be severely hypothermic as well as anemic with hemoglobin of 5.0. He was admitted to [facility] for further evaluation and management of profound anemia and severe hypothermia along with severe metabolic acidosis. The patient's bicarbonate level at time of arrival to the hospital was 6 and BUN and creatinine were 158 and 10.2 respectively. Potassium level was extremely elevated at 6.6. From the cardiac standpoint, troponin I was 0 and proBNP was 18,651. Chest x-ray was significant for multilevel infiltrate suggestive of pneumonia, but no acute heart failure. Cardiology consultation was made at request of Dr. Allan to address the management of bradycardia. PAST MEDICAL HISTORY: 1. Choledocholithiasis. 2. Acute cholecystitis. 3. Common bile duct dilatation, status post sphincterotomy and stone extraction. 4. History of Klebsiella UTI. 5. History of sepsis. 6. History of acute kidney injury. 7. History of anemia of chronic disease. 8. History of diabetes mellitus. 9. History of hypertension. 10. History of GI bleed. 11. History of . ALLERGIES: No known drug allergies. SOCIAL HISTORY: Denies any tobacco, alcohol, or illicit drug use. He lives by himself at home. MEDICATIONS: List of medications at home are unknown and probably none. REVIEW OF SYSTEMS: A 12-system review done essentially negative except what was mentioned in the history of present illness. FAMILY HISTORY: No premature coronary artery disease in the first-degree relatives according to the patient. PAST SURGICAL HISTORY: None. PHYSICAL EXAMINATION: VITAL SIGNS: Blood pressure is 108/64, pulse of 68, respirations 15, temperature 97.0 degrees Fahrenheit, O2 saturation 94% on room air. GENERAL: The patient is a very unfortunate 64-year-old gentleman, in no apparent respiratory distress, chronically ill and cachectic. Warming blanket in place. Currently receiving blood transfusion. HEENT: Atraumatic and normocephalic. Anicteric. Pupils are equal, round, and reactive to light and accommodation. Extraocular muscles are intact. NECK: JVP less than 5 cm. No carotid bruit. Carotid upstrokes 2+ bilaterally. CARDIOVASCULAR: Normal S1, S2. Regular rate and rhythm, bradycardic. No murmurs, gallops, or rubs. PMI is at fourth intercostal space, midclavicular line. LUNGS: Clear to auscultation bilaterally. ABDOMEN: No hepatosplenomegaly. Soft and nondistended. Positive bowel sounds. EXTREMITIES: No evidence of edema, clubbing or cyanosis. LABORATORY FINDINGS: WBC of 7.8, hemoglobin of 5.0, hematocrit of 15.1, platelet count is 168. INR is 1.4. D-dimer is 4.1. Sodium is 138, potassium is 6.6, chloride 112, carbon dioxide is 6, BUN of 158, creatinine 10.2, glucose is 78, lactic acid 2.3, calcium is 8.0, magnesium is 3.2. Troponin I is 0. CRP was 7.5. ProBNP was 18,651. Lipase was 774. ASSESSMENT AND PLAN: The patient is a very unfortunate 64-year-old gentleman, seen in Cardiology consultation. 1. Sinus bradycardia. This is likely due to severe hypothermia, the patient receiving warming blanket and want blood transfusion. Latest temperature is 95.9 degrees Fahrenheit. Continue to monitor rhythm. He is hemodynamically stable with blood pressure 128/74 mmHg. No cardiac intervention is required at this point besides replacement of electrolytes, continuation of blood transfusion for the hemoglobin and hematocrit goal of 10 and 30. The patient's latest potassium level is 5.0. I will check, the last magnesium level was 3.2. 2. Profound anemia, status post blood transfusion. 3. Mild pulmonary hypertension, 2D echocardiography in April 2018 had showed normal LV systolic and diastolic function. I would like to thank Dr. Allan for allowing me to participate in the care of this patient. Alvaro Hargrove M.D. DR: DENITA JOB#: [id number] CC:
--- NOTE | 2020-01-08 17:30 | Consultation ---
DATE OF CONSULTATION: 01/08/2020 GASTROENTEROLOGY CONSULTATION CONSULTING PHYSICIAN: Alber Sellers MD. REFERRING PHYSICIAN: Kamron Allan MD. CHIEF COMPLAINT: I was asked to see this patient by Dr. Kamron Allan for evaluation of anemia. HISTORY OF PRESENT ILLNESS: The patient is a 64-year-old man, who is a poor historian, who was brought in since he was found down on the floor at his house. He does not offer much history or explanation as to what is happening to him. He does complain of diarrhea for one day and he says appetite has been a little bit low. During the hospital admission, he was found to have renal failure, profoundly anemic, and therefore admitted to the direct observation unit. At the time of my visit, he denies any abdominal pain, nausea, or vomiting. He cannot recall any endoscopy or colonoscopy in the past, although the records at [place] showed he has a history of having an ERCP examination in April 2018 where common bile duct stones were removed. On this admission, both gallstones and common bile duct stones have been identified on imaging. PAST MEDICAL HISTORY: History of diabetes and high blood pressure, history of hip fracture at the level of femur about three years ago treated surgically, history of cholelithiasis and choledocholithiasis in 2019 status post ERCP with stone extraction. MEDICATIONS: The patient states he does not take any medications at home. He does not have a doctor. FAMILY HISTORY: Noncontributory. SOCIAL HISTORY: The patient lives at home alone. He is not and has no children. He has . ALLERGIES: None. REVIEW OF SYSTEMS: Otherwise negative. PHYSICAL EXAMINATION: GENERAL: Debilitated, thin, man, seen in his room. HEENT: Normocephalic and atraumatic. Sclerae anicteric. Oropharynx is clear. NECK: Supple. CHEST: Clear to auscultation. CARDIOVASCULAR: Regular rate. ABDOMEN: Soft, flat, nontender, and nondistended. 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 NEUROLOGIC: Grossly nonfocal. LABORATORY DATA: Noted. The patient had hemoglobin on admission of 5, which after one unit of blood, went up approximately 5.9 with a slight decline in his platelet count of 118. His creatinine was 9.7, which is new. Blood sugar was elevated from 137 to 226. His creatine kinase is mildly elevated at 422. His admission lipase was 774 with an elevated lactate level. His potassium initially was high, but now improved. ASSESSMENT: This patient presents with failure to thrive and severe anemia and also with renal failure, which all are very concerning. He should be seen by Nephrology cognos consultant, who will manage his IV fluids and reassessment of his kidney function. He should also receive more blood transfusions both for volume support and also to bring up his hemoglobin more than 7. I will check a stool for occult blood and also since he had diarrhea for Clostridium difficile. He would be a candidate for an endoscopic and colonoscopic evaluation, but at this point he has renal failure, he needs to be stabilized first. He also does not show any evidence of acute gastrointestinal bleeding. Proton pump inhibitor should be given. Another aspect of his care is cholelithiasis and choledocholithiasis without abnormal liver tests. The gallstones and the common bile duct will once again need to be removed with ERCP examination and a subsequent surgical cholecystectomy should prevent any recurrence in the future. RECOMMENDATIONS: 1. Renal consultation and reassess the patient's kidney function. 2. Transfuse as needed to bring up hemoglobin more than 7, but watching potassium level very closely given renal failure. 3. Once the patient is stabilized, then an ERCP examination for removing of the common bile duct stone. 4. Surgical consultation for eventual laparoscopic cholecystectomy. 5. Endoscopy and colonoscopy at a later date to evaluate the GI tract for any source of blood loss. 6. Check stool for Clostridium difficile. 7. Push oral intake with renal diet. Thank you for asking me to participate in the care of this patient. Alber Sellers M.D. DR: ALEX JOB#: [id number] CC:
--- NOTE | 2020-01-08 19:34 | NUR ---
NURSE HAND-OFF REPORT: Important Events on Shift: Patient is receiving Blood transfusion night RN will complete the transfusion. Patient Status: Stable Diet: CCHO Pending Orders: Pending Results/Labs: AM CBC Pending MD notification:NA Latest Vital Signs: Temperature 97.3 , Pulse 60 , B/P 141 /81 , Respiratory Rate 19 , O2 SAT 100 , Room Air, O2 Flow Rate . Vital Sign Comment: Stable EKG Rhythm: Sinus Bradycardia Rhythm change?: N MD Notified?: - MD Response: Latest Mclean Fall Score: 85 Fall Risk: High Risk Safety Measures: Call light Within Reach, Bed Alarm Zone 3, Side Rails Side Rails x3, Bed position Low and Locked. Fall Precautions: Yellow Socks Yellow Gown Door Sign Patient Fall Education Report given to Gabe/AMARILIS.
--- NOTE | 2020-01-08 19:35 | NUR ---
NURSE NOTES: Received report from Piper RN. Pt awake lying semi-olson's, resting comfortably. Pt on room air, saturating 100%. No acute distress or SOB noted. Breathing is even and unlabored. Pt able to make needs known, denies pain or discomfort at this time. Pt has Ryan hugger for temperature management. Will continue to monitor Blood sugar. Bed in low position and locked, merle light within reach, encouraged to use call light when needed. Urinal within reach. Will continue plan of care.
[2020-01-09] VITALS: BP 118/65
[2020-01-09 04:00] VITALS: BP 127/64
[2020-01-09 05:02] LABS: HEMATOCRIT 28.4 % (42.0-52.0); HEMOGLOBIN 9.4 G/DL (14.2-18.0); MEAN CORPUSCULAR VOLUME 92 FL (80-99); PLATELET COUNT 128 K/UL (150-450); RED BLOOD COUNT 3.07 M/UL (4.70-6.10); RED CELL DISTRIBUTION WIDTH 14.6 % (11.6-14.8); WHITE BLOOD COUNT 9.1 K/UL (4.8-10.8)
[2020-01-09] MEDS: NovoLOG Insulin Flexpen SUBQ SCH ×4 (06:02→20:51)
--- NOTE | 2020-01-09 06:40 | Consultation ---
History of Present Illness General Chief Complaint: Generalized Weakness Present Illness Allergies: Coded Allergies: No Known Allergies (Unverified , 04/21/18) Medication History Unable to Obtain Active Prescriptions or Reported Meds Patient History Healthcare decision maker Resuscitation status Advanced Directive on File Physical Exam Last 24 Hour Vital Signs Date Time Temp Pulse Resp B/P (MAP) Pulse Ox O2 Delivery O2 Flow Rate FiO2 01/09/20 04:00 Room Air 01/09/20 04:00 58 01/09/20 04:00 97.0 60 20 127/64 (85) 100 01/09/20 00:03 Room Air 01/09/20 00:00 96.8 63 18 118/65 (82) 100 01/09/20 00:00 63 01/08/20 20:00 97.5 62 18 108/63 (78) 100 01/08/20 20:00 Room Air 01/08/20 20:00 67 01/08/20 16:00 Room Air 01/08/20 16:00 97.3 60 19 141/81 (101) 100 01/08/20 15:31 64 01/08/20 12:00 Room Air 01/08/20 12:00 95.9 55 18 128/74 (92) 100 01/08/20 11:55 57 01/08/20 08:00 Room Air 01/08/20 08:00 95.9 55 19 106/66 (79) 100 01/08/20 07:55 52 Intake and Output 01/08/20 01/09/20 19:00 07:00 Intake Total 740 ml Output Total 200 ml 600 ml Balance 540 ml -600 ml Intake Oral 240 ml Blood Product 500 ml Output Urine Total 200 ml 600 ml # Voids 2 2 # Bowel Movements 5 3 Laboratory Tests Test 01/08/20 09:38 01/08/20 10:00 01/08/20 11:28 01/08/20 16:45 POC Whole Blood Glucose 124 MG/DL (74-106) H 152 MG/DL (74-106) H White Blood Count 7.3 K/UL (4.8-10.8) Red Blood Count 1.95 M/UL (4.70-6.10) L Hemoglobin 5.9 G/DL (14.2-18.0) *L Hematocrit 18.2 % (42.0-52.0) L Mean Corpuscular Volume 93 FL (80-99) Mean Corpuscular Hemoglobin 30.1 PG (27.0-31.0) Mean Corpuscular Hemoglobin Concent 32.3 G/DL (32.0-36.0) Red Cell Distribution Width 15.5 % (11.6-14.8) H Platelet Count 118 K/UL (150-450) L Mean Platelet Volume 7.2 FL (6.5-10.1) Neutrophils (%) (Auto) % (45.0-75.0) Lymphocytes (%) (Auto) % (20.0-45.0) Monocytes (%) (Auto) % (1.0-10.0) Eosinophils (%) (Auto) % (0.0-3.0) Basophils (%) (Auto) % (0.0-2.0) Differential Total Cells Counted 100 Neutrophils % (Manual) 85 % (45-75) H Lymphocytes % (Manual) 13 % (20-45) L Monocytes % (Manual) 2 % (1-10) Eosinophils % (Manual) 0 % (0-3) Basophils % (Manual) 0 % (0-2) Band Neutrophils 0 % (0-8) Platelet Estimate Decreased L Platelet Morphology Normal Anisocytosis 1+ Stool Occult Blood Pending Test 01/08/20 17:15 01/09/20 03:08 POC Whole Blood Glucose Pending White Blood Count 9.1 K/UL (4.8-10.8) Red Blood Count 3.07 M/UL (4.70-6.10) L Hemoglobin 9.4 G/DL (14.2-18.0) #L Hematocrit 28.4 % (42.0-52.0) #L Mean Corpuscular Volume 92 FL (80-99) Mean Corpuscular Hemoglobin 30.6 PG (27.0-31.0) Mean Corpuscular Hemoglobin Concent 33.1 G/DL (32.0-36.0) Red Cell Distribution Width 14.6 % (11.6-14.8) Platelet Count 128 K/UL (150-450) L Mean Platelet Volume 7.6 FL (6.5-10.1) Neutrophils (%) (Auto) % (45.0-75.0) Lymphocytes (%) (Auto) % (20.0-45.0) Monocytes (%) (Auto) % (1.0-10.0) Eosinophils (%) (Auto) % (0.0-3.0) Basophils (%) (Auto) % (0.0-2.0) Neutrophils % (Manual) Pending Lymphocytes % (Manual) Pending Platelet Estimate Pending Platelet Morphology Pending Height (Feet): 5 Height (Inches): 8.00 Weight (Pounds): 91 Medications Current Medications Medications (Trade) Dose Ordered Sig/Jamal Route PRN Reason Start Time Stop Time Status Last Admin Dose Admin Dextrose (Dextrose 50%) 25 ml Q30M PRN IV Hypoglycemia 01/08/20 04:15 04/07/20 04:14 Dextrose (Dextrose 50%) 50 ml Q30M PRN IV Hypoglycemia 01/08/20 04:15 04/07/20 04:14 Insulin Aspart (NovoLOG) BEFORE MEALS AND HS SUBQ 01/08/20 06:30 04/07/20 06:29 Assessment/Plan Assessment/Plan: Hematology Consultation RERichard MD: Alex Allan RFC: Anemia, ongoing ID 64y old male, well known to me from before, paramedics were called because the patient had fallen and unable to get off of the bathroom floor. He states he fell yesterday. They say he called however other say that a neighbor found him and called paramedics. Patient lives by himself apparently. Initially he refused transport but they convinced him to come because he appears cachectic and there is no one else to help him out. The patient is an insulin-dependent diabetic. The paramedics state that it is cold in the back of their ambulance but the patient does feel extremely cold to touch. hgb 5.5 on admission. Patient does take insulin for diabetes. No fevers, chills, sore throat, chest pain, palpitations, nausea, vomiting, diar susie, dysuria, abdominal pain, shortness of breath, joint pain, rashes, depression, anxiety, visual changes, dizziness, headache. He denies passing blood per rectum or melena. The patient was admitted April 2018 with these discharge diagnoses: Hypovolemic shock Sepsis Choledocholithiasis with acute cholecystitis Status post ERCP with sphincterotomy, balloon welder assistant and stone extraction Acute cholecystitis Klebsiella UTI , status post treatment Gallstone pancreatitis Dehydration Acute kidney injury on chronic kidney disease - improved Anemia of chronic disease Diabetes mellitus History of hypertension Diarrhea ( stool C. difficile negative) GI bleeding Chronic gastritis Abnormal LFT - resolved Folate deficiency Anion gap metabolic acidosis Of note is discharge creatinine was 1.3 Allergies: No Known Allergies (Unverified , 04/21/18) COVID-19 Screening Contact w/high risk pt: No Experienced COVID-19 symptoms?: No COVID-19 Testing performed ORDER CALLER: No Patient History Past Medical History: see triage record, old chart reviewed Social History: Denies: smoking Social History Narrative Patient lives by himself and was born in [facility] Reviewed Nursing Documentation: PMH: Agreed Nursing Documentation-PMH Hx Hypertension: Yes Hx Diabetes: Yes Review of Systems All Other Systems: negative except mentioned in HPI Physical Exam Vitals: reviewed General: GCS 15, thin, other - Cold, Chronically Ill - Cachectic Heent: dry mucus membranes, full range of motion, supple, no meningismus Respiratory: chest non-tender, lungs clear, normal breath sounds Cardiovascular: bradycardia, 2+ radial (R) Gastrointestinal: other - Spider habitus, decreased bowel sound Musculoskeletal: back normal, normal range of motion, no calf tenderness Neurologic: oriented - x 2 Psychiatric: mood/affect normal Skin: pallor - Sallow and cold Labs: noted Imaging: reviewed Assessment and Recs # Anemia of chronic disease - likely multifactorial, with sepsis, poorly controlled DM2, and esrd --> Anemia workup has been ordered, reviewed --> No evidence of hemolysis is noted, peripheral smear has been reviewed. --> Hgb goal >7. Transfuse prn. --> Epogen started --> hgb 5-->5.9-->9.4 ==> hold off on iron --> seen by Gi # Thrombocytopenia likely due to liver disease/cirrhosis-->resolved, also now with sepsis/pna, elev la --> Medications have been reviewed --> if the plt count less than 10k, transfuse immediately. If less than 20k and febrile, transfuse --> If less than 50k and bleeding, transfuse. If neurosurgical bleed, transfuse as well --> plt 168->128 # Sepsis - on fluids and abx --> iamging as needed --> consider abx [email or web address] # Dehydration --> per renal # Choledocholithiasis with acute cholecystitis --> ERCP when stable -> seen by gi # Dvt ppx scds The timing of this note does not necessarily reflect the time of the patient was seen. Greatly appreciate consultation! Guero Hernandez MD Jan 09, 2020 06:40
--- NOTE | 2020-01-09 07:20 | NUR ---
NURSE HAND-OFF REPORT: Important Events on Shift:[] Patient Status: [] Diet: [] Pending Orders: [] Pending Results/Labs:[] Pending MD notification:[] Latest Vital Signs: Temperature 97.0 , Pulse 58 , B/P 127 /64 , Respiratory Rate 20 , O2 SAT 100 , Room Air, O2 Flow Rate . Vital Sign Comment: [] EKG Rhythm: Sinus Bradycardia Rhythm change?: N MD Notified?: - MD Response: Latest Mclean Fall Score: 85 Fall Risk: High Risk Safety Measures: Call light Within Reach, Bed Alarm Zone 3, Side Rails Side Rails x3, Bed position Low and Locked. Fall Precautions: Yellow Socks Yellow Gown Door Sign Patient Fall Education Report given to [Johnny RN].
--- NOTE | 2020-01-09 07:30 | NUR ---
NURSE NOTES: Received report from AMARILIS Bernal. Patient is resting in bed, in stable condition. No s/sx of SOB, breathing is even and unlabored, patient on room air, no distress noted at this time. Patient is able to verbalized needs, patient eating breakfast. Denies any presence of pain or discomfort at this time. Bed is in lowest position, brake engaged. Call light is kept within easy reach. Will continue to monitor patient.
--- NOTE | 2020-01-09 07:41 | NUR ---
NURSE NOTES: RT Ja made aware of overdue x 1 order of Proventil since 2200 hours. RT Ja acknowledged and informed this nurse they will ask night RT. Noted. Patient's breathing is even and unlabored. Will continue to monitor patient.
[2020-01-09 08:00] VITALS: BP 127/75
[2020-01-09] MEDS: Azithromycin 250mg tab ORAL SCH (09:14)
[2020-01-09] MEDS: cefTRIAXone 1 GM in D5W 55 ML IVPB SCH (09:15)
--- NOTE | 2020-01-09 09:44 | General Progress Note ---
Subjective ROS Limited/Unobtainable: No Allergies: Coded Allergies: No Known Allergies (Unverified , 04/21/18) Objective Last 24 Hour Vital Signs Date Time Temp Pulse Resp B/P (MAP) Pulse Ox O2 Delivery O2 Flow Rate FiO2 01/09/20 04:00 Room Air 01/09/20 04:00 58 01/09/20 04:00 97.0 60 20 127/64 (85) 100 01/09/20 00:03 Room Air 01/09/20 00:00 96.8 63 18 118/65 (82) 100 01/09/20 00:00 63 01/08/20 20:00 97.5 62 18 108/63 (78) 100 01/08/20 20:00 Room Air 01/08/20 20:00 67 01/08/20 16:00 Room Air 01/08/20 16:00 97.3 60 19 141/81 (101) 100 01/08/20 15:31 64 01/08/20 12:00 Room Air 01/08/20 12:00 95.9 55 18 128/74 (92) 100 01/08/20 11:55 57 Intake and Output 01/08/20 01/09/20 19:00 07:00 Intake Total 740 ml Output Total 200 ml 600 ml Balance 540 ml -600 ml Intake Oral 240 ml Blood Product 500 ml Output Urine Total 200 ml 600 ml # Voids 2 2 # Bowel Movements 5 3 Laboratory Tests 01/08/20 10:00: White Blood Count 7.3, Red Blood Count 1.95L, Hemoglobin 5.9*L, Hematocrit 18.2L , Mean Corpuscular Volume 93, Mean Corpuscular Hemoglobin 30.1, Mean Corpuscular Hemoglobin Concent 32.3, Red Cell Distribution Width 15.5H, Platelet Count 118L, Mean Platelet Volume 7.2, Neutrophils (%) (Auto) , Lymphocytes (%) (Auto) , Monocytes (%) (Auto) , Eosinophils (%) (Auto) , Basophils (%) (Auto) , Differential Total Cells Counted 100, Neutrophils % (Manual) 85H, Lymphocytes % (Manual) 13L, Monocytes % (Manual) 2, Eosinophils % (Manual) 0, Basophils % (Manual) 0, Band Neutrophils 0, Platelet Estimate DecreasedL, Platelet Morphology Normal, Anisocytosis 1+ 01/08/20 11:28: POC Whole Blood Glucose 152H 01/08/20 16:45: Stool Occult Blood [Pending] 01/08/20 17:15: POC Whole Blood Glucose [Pending] 01/09/20 03:03: Ferritin 862H 01/09/20 03:08: White Blood Count 9.1, Red Blood Count 3.07L, Hemoglobin 9.4#L, Hematocrit 28.4#L, Mean Corpuscular Volume 92, Mean Corpuscular Hemoglobin 30.6, Mean Corpuscular Hemoglobin Concent 33.1, Red Cell Distribution Width 14.6, Platelet Count 128L, Mean Platelet Volume 7.6, Neutrophils (%) (Auto) , Lymphocytes (%) (Auto) , Monocytes (%) (Auto) , Eosinophils (%) (Auto) , Basophils (%) (Auto) , Differential Total Cells Counted 100, Neutrophils % (Manual) 90H, Lymphocytes % (Manual) 7L, Monocytes % (Manual) 2, Eosinophils % (Manual) 1, Basophils % (Manual) 0, Band Neutrophils 0, Platelet Estimate DecreasedL, Platelet Morphology Normal, Anisocytosis 1+ Height (Feet): 5 Height (Inches): 8.00 Weight (Pounds): 91 General Appearance: confused EENT: normal ENT inspection Neck: supple Cardiovascular: normal rate Respiratory/Chest: decreased breath sounds Abdomen: hypoactive bowel sounds Extremities: non-tender Assessment/Plan Problem List: (1) Gallstones ICD Codes: K80.20 - Calculus of gallbladder without cholecystitis without obstruction SNOMED: 065553153 (2) Renal failure ICD Codes: N19 - Unspecified kidney failure SNOMED: 99443223 Qualifiers: Qualified Codes: N17.9 - Acute kidney failure, unspecified (3) Anemia ICD Codes: D64.9 - Anemia, unspecified SNOMED: 500362721 Qualifiers: Qualified Codes: D64.9 - Anemia, unspecified (4) Diabetes ICD Codes: E11.9 - Type 2 diabetes mellitus without complications SNOMED: 90971390 Assessment/Plan: fu stool ob GI procedures on hold pending HD MRCP ERCP if needed León Lambert MD Jan 09, 2020 09:44
--- NOTE | 2020-01-09 10:00 | NUR ---
NURSE NOTES: Dr. Berrios seen and examined patient at bedside. Made Dr. Hunt aware of low urine output. Dr. Berrios acknowledged and ordered herndon catheter insertion. Order entered, noted, and carried out. Will continue to monitor patient.
--- NOTE | 2020-01-09 10:00 | NUR ---
NURSE NOTES: Patient noted with abnormal ABG on 01/07/2020, no pulmonology on case noted. ABG on 01/07/2020 result: pH 6.992, pCO2 17.2, pO2 178.2, HCO3 4.1 no mode of oxygenation noted on results. Currently patient is on room air SpO2 100%, no SOB noted. Contacted and informed Dr. Allan of assessments, Dr. Allan acknowledged and ordered Dr. Condon for consult. Will continue to monitor patient.
--- NOTE | 2020-01-09 10:52 | NUR ---
RD ASSESSMENT & RECOMMENDATIONS SEE CARE ACTIVITY FOR COMPLETE ASSESSMENT DAILY ESTIMATED NEEDS: Needs based on Renal, underweight, 46.8kg 30-35 kcals/kg 4990-9763 total kcals .8-1.2 (w HD 1.2-1.8) g protein/kg 37-56 (w/ HD 56-84) g total protein Fluid per MD NUTRITION DIAGNOSIS: Altered nutrition related lab values R/T renal failure, clinical condition as evidenced by low POC glu (19 18, now improved), elev bun (145) and creat (9.7), elev K on adm (6.6->5.0). CURRENT DIET: CCHO MED CURRENT TF: PO DIET RECOMMENDATIONS: RENAL DIET/ Texture as tolerated ADDITIONAL RECOMMENDATIONS: * Standing wt as able for accurate CBW * Monitor for HD initiation * add NEPRO 1 tetra BID in b/w meals (increase to TID w/ HD) * Check POC q3-4 hrs, maintain D5 w/ low BG. . .
[2020-01-09 11:21] LABS: ALBUMIN 2.8 G/DL (3.4-5.0); ALBUMIN/GLOBULIN RATIO 0.7 (1.0-2.7); BILIRUBIN,TOTAL 0.4 MG/DL (0.2-1.0); CALCIUM 7.1 MG/DL (8.5-10.1); CREATININE 9.6 MG/DL (0.55-1.30); PHOSPHORUS 8.9 MG/DL (2.5-4.9); POTASSIUM 5.9 MMOL/L (3.5-5.1)
--- NOTE | 2020-01-09 11:37 | NUR ---
Social Work This Sw received a consult to assist with a home safety evaluation. This SW met with patient who speaks some Lao, mostly Thai. Patient remains alert/oriented, stating he lives with his sister, Eladia, but does not have her number. Patient has a flip phone at bedside that is needing to be charged. Patient was admitted here in the past, with a contact number for Eladia: [phone]. This SW made an attempt to speak with Eladia, while this number is no longer working. Patient explained he does live with his sister, while stating "I cannot walk, I need a wheelchair." 2-West bore mill operator for plastic notified regarding orders for P.T. Pending progress at this time. SNF recommended, as needed vs home with home care (with DME). Patient denied any substance abuse or mental health concerns at this time. Patient lives at the following address: [address] (no steps, according to patient).
[2020-01-09 12:00] VITALS: BP 119/64
--- NOTE | 2020-01-09 12:00 | NUR ---
NURSE NOTES: Contacted and left message for Dr. Condon regarding abnormal ABG on 01/07/2020 result: pH 6.992, pCO2 17.2, pO2 178.2, HCO3 4.1 no mode of oxygenation noted on results. Currently patient is on room air SpO2 100%, no SOB noted. Awaiting call back. Will continue to monitor patient.
--- NOTE | 2020-01-09 13:00 | NUR ---
NURSE NOTES: Attempted to insert 16 equatorial guinean urinary herndon catheter, able to enter urethra, resistance felt, unable to proceed further, discontinued insertion. Second attempt 14 equatorial guinean coude urinary herndon catheter, able to enter urethra, unable to advance further, discontinued insertion. Called and informed Dr. Berrios of assessments and attempts to insert 16 fr and 14 fr coude her[address] catheter. Dr. Berrios acknowledged and gave no new orders at this time. Inquired if urology consult needed. Dr. Berrios acknowledged and gave no new order at this time. Will continue to monitor patient.
--- NOTE | 2020-01-09 13:47 | NUR ---
RADIOLOGY DEPT., CHEST X-RAY DONE.-P.DYE
--- NOTE | 2020-01-09 14:56 | Consultation ---
Consult Note Consult Note I was called this morning to evaluate the patient for renal failure by AMARILIS Turner The consult was requested by Dr. Allan today! Patient seen, poor historian, examined, Data reviewed. Emergency room note: Paramedics were called because the patient had fallen and unable to get off of the bathroom floor. He states he fell yesterday. They say he called however other say that a neighbor found him and called paramedics. Patient lives by himself apparently. Initially he refused transport but they convinced him to come because he appears cachectic and there is no one else to help him out. The patient is an insulin-dependent diabetic. The paramedics state that it is cold in the back of their ambulance but the patient does feel extremely cold to touch. Patient does take insulin for diabetes. No fevers, chills, sore throat, chest pain, palpitations, nausea, vomiting, diarrhea, dysuria, abdominal pain, shortness of breath, joint pain, rashes, depression, anxiety, visual changes, dizziness, headache. He denies passing blood per rectum or melena. The patient was admitted April 2018 with these discharge diagnoses: Hypovolemic shock Sepsis Choledocholithiasis with acute cholecystitis Status post ERCP with sphincterotomy, balloon event marketing assistant and stone extraction Acute cholecystitis Klebsiella UTI , status post treatment Gallstone pancreatitis Dehydration Acute kidney injury on chronic kidney disease - improved Anemia of chronic disease Diabetes mellitus History of hypertension Diarrhea ( stool C. difficile negative) GI bleeding Chronic gastritis Abnormal LFT - resolved Folate deficiency Anion gap metabolic acidosis Of note is discharge creatinine was 1.3 Allergies: No Known Allergies (Unverified , 04/21/18) COVID-19 Screening Contact w/high risk pt: No Experienced COVID-19 symptoms?: No COVID-19 Testing performed HOT DIMPLING MACHINE OPERATOR: No Hx Hypertension: Yes Hx Diabetes: Yes Vital Signs Date Time Temp Pulse Resp B/P (MAP) Pulse Ox O2 Delivery O2 Flow Rate FiO2 01/07/20 20:42 97.0 68 15 108/64 (79) 94 Room Air PHYSICAL EXAMINATION: VITAL SIGNS: Blood pressure is 108/64, pulse of 68, respirations 15, temperature 97.0 degrees Fahrenheit, O2 saturation 94% on room air. HEENT: Atraumatic and normocephalic. Anicteric. Pupils are equal, round, and reactive to light and accommodation. Extraocular muscles are intact. NECK: No carotid bruit. CARDIOVASCULAR: Normal S1, S2. Regular rate and rhythm, bradycardic. No murmurs, gallops, or rubs. PMI is at fourth intercostal space, midclavicular line. LUNGS: Clear to auscultation bilaterally. ABDOMEN: No hepatosplenomegaly. Soft and nondistended. Positive bowel sounds. EXTREMITIES: No evidence of edema, clubbing or cyanosis. LABORATORY FINDINGS: WBC of 7.8, hemoglobin of 5.0, hematocrit of 15.1, platelet count is 168. INR is 1.4. D-dimer is 4.1. Sodium is 138, potassium is 6.6, chloride 112, carbon dioxide is 6, BUN of 158, creatinine 10.2, glucose is 78, lactic acid 2.3, calcium is 8.0, magnesium is 3.2. Troponin I is 0. CRP was 7.5. ProBNP was 18,651. Lipase was 774. . Assessment/Plan Renal failure acute, superimposed on chronic Hyperkalemia Acidosis Presented with severe anemia on admission, transfused 3 units packed RBCs since admission. History of hypertension History of diabetes mellitus Suggestions: PATIENT NEED EMERGENCY LIFE SAVING DIALYSIS Insertion of temporary nontunneled dialysis catheter followed by dialysis to correct acidosis hyperkalemia Meanwhile start on oral Protonix, Colace, Amphojel, Bicitra, Per orders CLARK: Kidneys: Bilateral echogenic kidneys with minimal flow no hydronephrosis. Consider medical renal disease. Small right renal cyst. No stones. 1. Cholelithiasis and choledocholithiasis with dilatation of the common bile duct tail to 8 mm. Consider MRCP for further investigation. 2. Findings suggestive of medical renal disease. Correlate with renal function. Orlin Berrios MD Jan 09, 2020 14:56
--- NOTE | 2020-01-09 14:59 | NUR ---
RESIDENT CARE MANAGER RNSURVEILLANCE ANALYST SI: HYPOTHERMIA,ANEMIA T. 97.3 HR 59 RR 20 B/P 127/75 K 5.9 CO2 6 IS: AZITHROMYCIN IV CEFEPIME IV STEP DOWN STATUS
--- NOTE | 2020-01-09 15:00 | NUR ---
NURSE NOTES: Patient refused to sign consent for non-tunneled hemodialysis catheter placement. This nurse and Belizean speaking RN, Valeriy assessed patient is alert and oriented x 4. Patient continuing to refuse to sign consent for hemodialysis, stating in Belizean, "No quiero". Translated in Macedonian as "I don't want." Called and spoke with Dr. Berrios about patient refusing to sign consent for non-tunneled hemodialysis catheter placement. Dr. Berrios acknowledged and instructed this nurse to called Dr. Allan of situation and need for psyche evaluation to assess patient is able to make own decisions. This nurse called Dr. Allan and reported situation, Dr. Allan acknowledged and ordered Dr. Lucia fos psyche evaluation. This nurse called and left message with Dr. Lucia. Awaiting call back and further instructions. Will continue to monitor patient. Addendum: 01/09/20 at 1645 by RUFINA TORIBIO RN NURSE NOTES: Addendum: Per patient used to have dialysis catheter 2 months ago and was receiving hemodialysis 2 months ago. Noted.
--- NOTE | 2020-01-09 15:01 | NUR ---
TOWER OBSERVER NOTES CLINICALS REVIEWED AND FAXED TO [facility].
--- NOTE | 2020-01-09 15:42 | NUR ---
NURSE NOTES: Second call to Dr. Condon regarding new consult for abnormal ABGs taken on 01/07/2020. Addendum Dr. Berrios has started patient on Sodium bicarbonate IVF. Awaiting call back from Dr. Condon. Patient is A&O x 4, no SOB noted, on room air with SpO2 100%. Will continue to monitor patient.
--- NOTE | 2020-01-09 15:50 | Diagnostic Imaging Report ---
Indication: Shortness of breath Technique: One view of the chest Comparison: 01/08/2020 Findings: Less optimal inspiration currently. Ill-defined interstitial and airspace opacities are seen in the lungs bilaterally, increased from the prior exam. Normal heart size. No definite effusions. Postsurgical changes of the right shoulder and right neck are again noted. Impression: Worsening bilateral infiltrates, likely pneumonia
[2020-01-09 16:00] VITALS: BP_SYST 111; BP_SYST 123; BP_DIAS 64; BP_DIAS 67
--- NOTE | 2020-01-09 16:00 | NUR ---
NURSE NOTES: Called [facility] and spoke with Scotty. Informed Scotty of hemodialysis order, Scotty acknowledged and informed this nurse that hemodialysis nurse will be notified. Noted. Entered in hemodialysis notification intervention.
[2020-01-09] MEDS ORDERED: Lidocaine 1% Plain 30 ml INJ PRN (16:15)
[2020-01-09] MEDS ORDERED: Heparin1,000 units/500ml Premix(Conc:2 units/ml) INJ PRN (16:15)
--- NOTE | 2020-01-09 16:24 | NUR ---
NURSE NOTES: Dr. Condon called back nurse station made aware of ABG taken on 01/07/2020, pH 6.992, pCO2 17.2, pO2 178.2, HCO3 4.1, currently patient is on room air, no SOB, SpO2 100%. Patient being prepped for non-tunneled hemodialysis catheter placement at bedside. Dr. Condon acknowledged and gave no new orders at this time, no new order for ABG at this time. Noted. Will continue to monitor patient.
--- NOTE | 2020-01-09 16:25 | NUR ---
NURSE NOTES: Dr. Lucia assessed patient. Patient agreed to sign consent for non-tunneled hemodialysis catheter placement. Consent signed and placed in chart. AMARILIS Crooks checker stocker for Frisian. Noted. Radiology notified of procedure. Will continue to monitor patient.
--- NOTE | 2020-01-09 16:30 | NUR ---
NURSE NOTES: Peng, hemodialysis nurse at nurse station, made aware of hemodialysis for patient today, 01/09/2020. Peng acknowledged and informed this nurse they will be here tonight at 2000 hours. Noted. Charge nurse made aware. Will continue to monitor patient.
--- NOTE | 2020-01-09 16:55 | Consultation ---
Consult Note Consult Note CONSULTING PHYSICIAN: Gonzalo Condon MD. REFERRING PHYSICIAN: Alex Allan MD. REASON FOR CONSULTATION: Acidosis; hypoxia HISTORY OF PRESENT ILLNESS: The patient is a 64-year-old gentleman, who was found by his neighbor on bathroom floor with inability to rise from the floor. he was also found to have cachexia and generalized weakness. Apparently, the patient did not want to be taken to the hospital initially, but he was convinced that requires to be seen by medical team in the hospital. The patient apparently was in this facility back in April 2018 and was diagnosed with gallstone pancreatitis, status post ERCP and sphincterotomy and stone extraction. Also history of Klebsiella UTI and acute kidney injury, which was improved. Also diabetes mellitus and hypovolemic and septic shock for which he received antibiotics and recovered. At the time of this evaluation and upon arrival to the emergency department, blood pressure was 108/64 mmHg, heart rate was 68. A 12-lead electrocardiogram was significant for sinus bradycardia with no acute ischemia. The patient was, however, found to be severely hypothermic as well as anemic with hemoglobin of 5.0. He was admitted to [facility] for further evaluation and management of profound anemia and severe hypothermia along with severe metabolic acidosis. The patient's bicarbonate level at time of arrival to the hospital was 6 and BUN and creatinine were 158 and 10.2 respectively. Potassium level was extremely elevated at 6.6. From the cardiac standpoint, troponin I was 0 and proBNP was 18,651. Chest x-ray was significant for multilevel infiltrate suggestive of pneumonia. PAST MEDICAL HISTORY: 1. Choledocholithiasis. 2. Acute cholecystitis. 3. Common bile duct dilatation, status post sphincterotomy and stone extraction. 4. History of Klebsiella UTI. 5. History of sepsis. 6. History of acute kidney injury. 7. History of anemia of chronic disease. 8. History of diabetes mellitus. 9. History of hypertension. 10. History of GI bleed. ALLERGIES: No known drug allergies. SOCIAL HISTORY: Denies any tobacco, alcohol, or illicit drug use. He lives by himself at home. MEDICATIONS: List of medications at home are unknown and probably none. REVIEW OF SYSTEMS: A 12-system review done essentially negative except what was mentioned in the history of present illness. FAMILY HISTORY: No premature coronary artery disease in the first-degree relatives according to the patient. PAST SURGICAL HISTORY: None. PHYSICAL EXAMINATION: VITAL SIGNS: Blood pressure is 108/64, pulse of 68, respirations 15, temperature 97.0 degrees Fahrenheit, O2 saturation 94% on room air. HEENT: Atraumatic and normocephalic. Anicteric. Pupils are equal, round, and reactive to light and accommodation. Extraocular muscles are intact. NECK: No carotid bruit. CARDIOVASCULAR: Normal S1, S2. Regular rate and rhythm, bradycardic. No murmurs, gallops, or rubs. PMI is at fourth intercostal space, midclavicular line. LUNGS: Clear to auscultation bilaterally. ABDOMEN: No hepatosplenomegaly. Soft and nondistended. Positive bowel sounds. EXTREMITIES: No evidence of edema, clubbing or cyanosis. LABORATORY FINDINGS: WBC of 7.8, hemoglobin of 5.0, hematocrit of 15.1, platelet count is 168. INR is 1.4. D-dimer is 4.1. Sodium is 138, potassium is 6.6, chloride 112, carbon dioxide is 6, BUN of 158, creatinine 10.2, glucose is 78, lactic acid 2.3, calcium is 8.0, magnesium is 3.2. Troponin I is 0. CRP was 7.5. ProBNP was 18,651. Lipase was 774. ASSESSMENT AND PLAN: 1. Sinus bradycardia. 2. Profound anemia, status post blood transfusion. 3. Mild pulmonary hypertension 4. Probable pneumonia Agree with broad-spectrum antibiotics. saturating well on low fl oxygen Will need dialysis Gonzalo Condon M.D. Gonzalo Condon MD Jan 09, 2020 16:55
--- NOTE | 2020-01-09 17:08 | Diagnostic Imaging Report ---
Indication: . Normal renal function tests, elevated the when creatinine Technique: Grayscale and duplex images of the kidneys, retroperitoneum, and bladder were obtained. Comparison: 01/08/2020 abdominal sonogram Findings: Right kidney measures 10.5 cm in length. Left kidney measures 10.4 cm in length. Both kidneys demonstrate markedly increased echogenicity. No hydronephrosis. There is suggestion of a 1 cm calculus in the left renal pelvis. There is a 17 mm cyst in the right renal cortex. This demonstrates a small septation.. Normal inferior vena cava. Bladder is mildly distended, calculated volume 340 mL. Impression: Bilateral echogenic kidneys, also previously reported, consistent with chronic medical renal disease. Negative for hydronephrosis Possible nonobstructive left renal calculus Incidental finding right renal cyst Mildly distended bladder.
[2020-01-09] MEDS: Sodium Bicarbonate 50 ML in D5W 1000ml 1,000 ML IV SCH (17:21)
[2020-01-09] MEDS: Docusate 100mg cap ORAL SCH (17:21)
[2020-01-09] MEDS: Sodium Citrate 30ml ORAL SCH (17:21)
[2020-01-09] MEDS: Aluminum Hydroxide Gel Susp 15ml ORAL SCH (17:21)
--- NOTE | 2020-01-09 17:23 | Pre-Procedure Note/Attestation ---
Pre-Procedure Note/Attestation Complete Prior to Procedure Planned Procedure: not applicable Procedure Narrative: dave Indications for Procedure Pre-Operative Diagnosis: renal failure Attestation I attest that I discussed the nature of the procedure; its benefits; risks and complications; and alternatives (and the risks and benefits of such alternatives), prior to the procedure, with the patient (or the patient's legal solar manufacturer's representative). I attest that, if there was a reasonable possibility of needing a blood tra nsfusion, the patient (or the patient's legal solar manufacturer's representative) was given the [facility] standardized written summary, pursuant to the Ja Oliver Blood Safety Act ([place] Health and Safety Code # 1645, as amended). I attest that I re-evaluated the patient just prior to the surgery and that there has been no change in the patient's H&P, except as documented below: Saul Mejia MD Jan 09, 2020 17:23
--- NOTE | 2020-01-09 17:24 | Brief Operative Note ---
Immediate Post Operative Note Operative Note Pre-op Diagnosis: renal failure Procedure: Blanka acosta Post-op Diagnosis: same Surgeon: Blanka MEJIA Anesthesia: local Specimen: none Complications: none Fluids: none Implant(s) used?: No Saul Mejia MD Jan 09, 2020 17:24
--- NOTE | 2020-01-09 17:29 | NUR ---
RADIOLOGY NOTE: RIJ NON TUNNELED DIALYSIS CATHETER PLACEMENT BY DR. YEIMI WEATHERS. FA
--- NOTE | 2020-01-09 17:33 | General Progress Note ---
Subjective Date patient seen: Jan 09, 2020 Constitutional: Reports: chills, diaphoresis, weakness Allergies: Coded Allergies: No Known Allergies (Unverified , 04/21/18) Subjective bed bound ,poor po intake, sob Objective Last 24 Hour Vital Signs Date Time Temp Pulse Resp B/P (MAP) Pulse Ox O2 Delivery O2 Flow Rate FiO2 01/09/20 17:01 56 01/09/20 16:00 Room Air 01/09/20 16:00 96.8 55 20 123/67 (85) 100 01/09/20 12:00 Room Air 01/09/20 12:00 57 01/09/20 12:00 96.6 57 22 119/64 (82) 99 01/09/20 08:00 97.3 59 20 127/75 (92) 100 01/09/20 08:00 60 01/09/20 08:00 Room Air 01/09/20 04:00 Room Air 01/09/20 04:00 58 01/09/20 04:00 97.0 60 20 127/64 (85) 100 01/09/20 00:03 Room Air 01/09/20 00:00 96.8 63 18 118/65 (82) 100 01/09/20 00:00 63 01/08/20 20:00 97.5 62 18 108/63 (78) 100 01/08/20 20:00 Room Air 01/08/20 20:00 67 Intake and Output 01/08/20 01/09/20 19:00 07:00 Intake Total 740 ml Output Total 200 ml 600 ml Balance 540 ml -600 ml Intake Oral 240 ml Blood Product 500 ml Output Urine Total 200 ml 600 ml # Voids 2 2 # Bowel Movements 5 3 Laboratory Tests 01/09/20 03:03: Ferritin 862H 01/09/20 03:08: White Blood Count 9.1, Red Blood Count 3.07L, Hemoglobin 9.4#L, Hematocrit 28.4#L, Mean Corpuscular Volume 92, Mean Corpuscular Hemoglobin 30.6, Mean Corpuscular Hemoglobin Concent 33.1, Red Cell Distribution Width 14.6, Platelet Count 128L, Mean Platelet Volume 7.6, Neutrophils (%) (Auto) , Lymphocytes (%) (Auto) , Monocytes (%) (Auto) , Eosinophils (%) (Auto) , Basophils (%) (Auto) , Differential Total Cells Counted 100, Neutrophils % (Manual) 90H, Lymphocytes % (Manual) 7L, Monocytes % (Manual) 2, Eosinophils % (Manual) 1, Basophils % (Manual) 0, Band Neutrophils 0, Platelet Estimate DecreasedL, Platelet Morphology Normal, Anisocytosis 1+, Sodium Level 139, Potassium Level 5.9H, Chloride Level 111H, Carbon Dioxide Level 6*L, Anion Gap 22H, Blood Urea Nitr ogen 145H, Creatinine 9.6H, Estimat Glomerular Filtration Rate 5.5, Glucose Level 74#, Calcium Level 7.1L, Phosphorus Level 8.9H, Magnesium Level 2.8H, Total Bilirubin 0.4, Aspartate Amino Transf (AST/SGOT) 24, Alanine Aminotransferase (ALT/SGPT) 29, Alkaline Phosphatase 114, Total Protein 7.1, Albumin 2.8L, Globulin 4.3, Albumin/Globulin Ratio 0.7L 01/09/20 09:00: Stool Occult Blood Positive 01/09/20 11:58: POC Whole Blood Glucose 67L 01/09/20 12:55: POC Whole Blood Glucose 102 Height (Feet): 5 Height (Inches): 8.00 Weight (Pounds): 91 General Appearance: cachetic EENT: PERRL/EOMI Neck: non-tender, supple Cardiovascular: regular rhythm Respiratory/Chest: expiratory wheezing Abdomen: non tender, soft Extremities: non-tender 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
--- NOTE | 2020-01-09 17:34 | Diagnostic Imaging Report ---
Indication: Acute renal failure Technique: Procedure performed at bedside. Procedural timeout performed. Total sterile technique, including sterile probe cover and sterile gel, sterile gloves, hand hygiene, hat, mask, sterile gown, large sterile drape, and preparation with 2% chlorhexidine utilized. Local anesthesia with 1% lidocaine. Ultrasound reveals patent compressible right internal jugular vein. Under real-time ultrasound guidance with real-time visualization of the entry into the vein, puncture right internal jugular vein using 21-gauge micropuncture needle, passage coronoid a guidewire, insertion 4 Yemeni micropuncture introducer, passage 0.035 guidewire, over which was passed serial dilators and then a 13 Yemeni 15 cm triple-lumen temporary dialysis catheter. Guidewire was removed. Catheter ports were aspirated and flushed. The catheter was fixed to the skin. Patient tolerated procedure well. A chest x-ray was obtained, documents catheter tip position at the cavoatrial junction. Comparison: none Findings: As above Impression: Successful bedside placement of right transjugular temporary dialysis catheter, as described.
--- NOTE | 2020-01-09 18:30 | NUR ---
NURSE NOTES: Called Dr. Berrios regarding renal ultrasound as requested, patient per impressions "negative for hydronephrosis." Dr. Berrios acknowledged and gave no new orders at this time. Will continue to monitor patient.
--- NOTE | 2020-01-09 19:15 | NUR ---
NURSE NOTES: Received report from Johnny Jerome RN. Pt awake in bed, afebrile and no respiratory distress noted. Pt able to follow command and communicate in simple Ukrainian. on RA saturating at 100%. With Right IJ Non tunneled dialysis catheter, intact, no bleeding, asymptomatic noted. Okay to use for Hemodialysis. With left FA 22 g, Right AC 20 G and left AC 20 G IV lines intact, patent and asymptomatic. Bear hugger on the patient, tolerating well to control body temperature per endorsement. MD aware Needs were attended. Call light within reach. Bed rails are up and wheels are locked. HOB elevated. Continue plan of care
--- NOTE | 2020-01-09 19:29 | NUR ---
NURSE HAND-OFF REPORT: Important Events on Shift: Patient Status: Stable Diet: CCHO medium Pending Orders: Hemodialysis tonight at 2000 hours, [facility] nurse aware Pending Results/Labs:None Pending MD notification:None Latest Vital Signs: Temperature 96.8 , Pulse 56 , B/P 123 /67 , Respiratory Rate 20 , O2 SAT 100 , Room Air, O2 Flow Rate . Vital Sign Comment: Stable EKG Rhythm: Sinus Bradycardia Rhythm change?: N MD Notified?: - MD Response: Latest Mclean Fall Score: 85 Fall Risk: High Risk Safety Measures: Call light Within Reach, Bed Alarm Zone 3, Side Rails Side Rails x3, Bed position Low and Locked. Fall Precautions: Yellow Socks Yellow Gown Door Sign Patient Fall Education Report given to AMARILIS Espinoza.
--- NOTE | 2020-01-09 19:50 | NUR ---
NURSE NOTES: Dr Hargrove at bedside. No new orders
[2020-01-09 20:00] VITALS: BP 121/60
--- NOTE | 2020-01-09 20:15 | NUR ---
NURSE NOTES: Dialysis nurse Peng bedside started patient on Dialysis. Patient stable asleep. VS WNL. Continue to monitor
[2020-01-09] MEDS ORDERED: Epoetin Alfa-EPBX(ESRD on dialysis)3000 units/ml vial SUBQ SCH (21:00)
[2020-01-09] MEDS ORDERED: Epoetin Alfa-EPBX (NON ESRD) 3000 units/ml vial SUBQ SCH (21:00)
[2020-01-09] MEDS ORDERED: Tamsulosin 0.4mg cap ORAL SCH (21:00)
[2020-01-10] VITALS: BP 155/79
[2020-01-10 04:00] VITALS: BP 155/83
[2020-01-10] MEDS: Sodium Citrate 30ml ORAL SCH ×2 (05:10)
[2020-01-10] MEDS: Aluminum Hydroxide Gel Susp 15ml ORAL SCH ×2 (05:10)
[2020-01-10 05:52] LABS: CHOLESTEROL 77 MG/DL (< 200); HDL CHOLESTEROL 41 MG/DL (40-60); PHOSPHORUS 3.3 MG/DL (2.5-4.9); TRIGLYCERIDES 78 MG/DL (30-150)
[2020-01-10 06:05] LABS: HEMATOCRIT 27.8 % (42.0-52.0); HEMOGLOBIN 9.7 G/DL (14.2-18.0); MEAN CORPUSCULAR VOLUME 87 FL (80-99); PLATELET COUNT 100 K/UL (150-450); RED BLOOD COUNT 3.19 M/UL (4.70-6.10); RED CELL DISTRIBUTION WIDTH 14.2 % (11.6-14.8); WHITE BLOOD COUNT 8.7 K/UL (4.8-10.8)
[2020-01-10 06:20] LABS: ALBUMIN 2.1 G/DL (3.4-5.0); ALBUMIN/GLOBULIN RATIO 0.6 (1.0-2.7); BILIRUBIN,TOTAL 0.5 MG/DL (0.2-1.0); CALCIUM 7.3 MG/DL (8.5-10.1); CREATININE 4.7 MG/DL (0.55-1.30)
[2020-01-10 06:28] LABS: POTASSIUM 2.8 MMOL/L (3.5-5.1)
[2020-01-10] MEDS: NovoLOG Insulin Flexpen SUBQ SCH ×4 (06:30→21:00)
--- NOTE | 2020-01-10 06:41 | Hematology/Onc Progress Note ---
Assessment/Plan Assessment/Plan Assessment and Recs # Anemia of chronic disease - likely multifactorial, with sepsis, poorly controlled DM2, and esrd --> Anemia workup has been ordered, reviewed --> No evidence of hemolysis is noted, peripheral smear has been reviewed. --> Hgb goal >7. Transfuse prn. --> Epogen started --> hgb 5-->5.9-->9.4->9.7 ==> hold off on iron --> occult ++ seen by Gi # Thrombocytopenia likely due to liver disease/cirrhosis-->resolved, also now with sepsis/pna, elev la --> Medications have been reviewed --> if the plt count less than 10k, transfuse immediately. If less than 20k and febrile, transfuse --> If less than 50k and bleeding, transfuse. If neurosurgical bleed, transfuse as well --> plt 168->128-->100 --> us abd with cholelithiasis # Sepsis - on fluids and abx --> iamging as needed --> consider abx ctx.[email or web address] # Dehydration --> per renal # Choledocholithiasis with acute cholecystitis --> ERCP when stable -> seen by gi # Dvt ppx scds The timing of this note does not necessarily reflect the time of the patient was seen. Greatly appreciate consultation! Subjective HEENT: Denies: no symptoms, eye pain, blurred vision, tearing, double vision, ear pain, ear discharge, nose pain, nose congestion, throat pain, throat swelling, mouth pain, mouth swelling, other Cardiovascular: Denies: no symptoms, chest pain, edema, irregular heart rate, lightheadedness, palpitations, syncope, other Respiratory: Denies: no symptoms, cough, shortness of breath, SOB with excertion, SOB at rest, sputum, wheezing, other Gastrointestinal/Abdominal: Denies: no symptoms, abdomen distended, abdominal pain, black stools, tarry stools, blood in stool, constipated, diarrhea, difficulty swallowing, nausea, poor appetite, poor fluid intake, rectal bleeding, vomiting, other Genitourinary: Denies: no symptoms, burning, discharge, frequency, flank pain, hematuria, incontinence, pain, urgency, other Neurologic/Psychiatric: Denies: no symptoms, anxiety, depressed, emotional problems, headache, numbness, paresthesia, pre-existing deficit, seizure, tingling, tremors, weakness, other Endocrine: Denies: no symptoms, excessive sweating, flushing, intolerance to cold, intolerance to heat, increased hunger, increased thirst, increased urine, unexplained weight gain, unexplained weight loss, other Hematologic/Lymphatic: Denies: no symptoms, anemia, easy bleeding, easy bruising, adenopathy, other Allergies: Coded Allergies: No Known Allergies (Unverified , 04/21/18) Subjective 01/09 labs reviewed, hgb low, on epo and hd today Objective Objective Current Medications Medications (Trade) Dose Ordered Sig/Jamal Route PRN Reason Start Time Stop Time Status Last Admin Dose Admin Aluminum Hydroxide (Amphojel) 1,920 mg Q6HR ORAL 01/09/20 17:00 02/08/20 16:59 01/09/20 17:21 Azithromycin (Zithromax) 250 mg DAILY ORAL 01/09/20 09:00 01/16/20 08:59 01/09/20 09:14 Ceftriaxone Sodium 1 gm/ Dextrose 55 ml @ 110 mls/hr Q24H IVPB 01/09/20 08:00 01/16/20 07:59 01/09/20 09:15 Chlorhexidine Gluconate (Jen-Hex 2%) 1 applic DAILY@2000 TOPIC 01/10/20 20:00 04/09/20 19:59 Dextrose (Dextrose 50%) 25 ml Q30M PRN IV Hypoglycemia 01/08/20 04:15 04/07/20 04:14 01/09/20 12:09 Dextrose (Dextrose 50%) 50 ml Q30M PRN IV Hypoglycemia 01/08/20 04:15 04/07/20 04:14 Docusate Sodium (Colace) 100 mg THREE TIMES A DAY ORAL 01/09/20 18:00 02/08/20 17:59 Epoetin Andre (Epoetin Andre-EPBX(NON ESRD)) 6,000 unit THU-THU-THU SUBQ 01/09/20 21:00 04/08/20 20:59 01/09/20 20:58 Heparin Sodium/ Sodium Chloride (Heparin 1000 units/500ml Premix) 1,000 unit ONCE PRN INJ catheter placement 01/09/20 16:15 01/11/20 16:14 Insulin Aspart (NovoLOG) BEFORE MEALS AND HS SUBQ 01/08/20 06:30 04/07/20 06:29 Lidocaine HCl (Xylocaine 1% 30ml) 30 ml ONCE PRN INJ catheter placement 01/09/20 16:15 01/11/20 16:14 Mirtazapine (Remeron) 7.5 mg QHS PRN ORAL insomnia 01/10/20 00:30 04/09/20 00:29 Pantoprazole (Protonix) 40 mg EVERY 12 HOURS ORAL 01/09/20 21:00 02/08/20 20:59 Sodium Bicarbonate 50 ml/ Dextrose 1,050 ml @ 75 mls/hr Q14H IV 01/09/20 17:00 02/08/20 16:59 01/09/20 17:21 Sodium Citrate (Bicitra) 30 ml EVERY 6 HOURS ORAL 01/09/20 18:00 02/08/20 17:59 01/09/20 17:21 Tamsulosin HCl (Flomax) 0.4 mg BEDTIME ORAL 01/09/20 21:00 02/08/20 20:59 Last 24 Hour Vital Signs Date Time Temp Pulse Resp B/P (MAP) Pulse Ox O2 Delivery O2 Flow Rate FiO2 01/10/20 04:00 Room Air 01/10/20 04:00 97.9 66 20 155/83 (107) 100 01/10/20 03:45 65 01/10/20 00:00 75 01/10/20 00:00 98.2 77 20 155/79 (104) 100 01/10/20 00:00 Room Air 01/09/20 20:00 97.0 56 20 121/60 (80) 100 01/09/20 20:00 Room Air 01/09/20 19:54 80 01/09/20 17:01 56 01/09/20 16:00 Room Air 01/09/20 16:00 96.8 55 20 123/67 (85) 100 01/09/20 12:00 Room Air 01/09/20 12:00 57 01/09/20 12:00 96.6 57 22 119/64 (82) 99 01/09/20 08:00 97.3 59 20 127/75 (92) 100 01/09/20 08:00 60 01/09/20 08:00 Room Air 01/09/20 04:00 Room Air 01/09/20 04:00 58 01/09/20 04:00 97.0 60 20 127/64 (85) 100 01/09/20 00:03 Room Air 01/09/20 00:00 96.8 63 18 118/65 (82) 100 01/09/20 00:00 63 01/08/20 20:00 97.5 62 18 108/63 (78) 100 01/08/20 20:00 Room Air 01/08/20 20:00 67 01/08/20 16:00 Room Air 01/08/20 16:00 97.3 60 19 141/81 (101) 100 01/08/20 15:31 64 01/08/20 12:00 Room Air 01/08/20 12:00 95.9 55 18 128/74 (92) 100 01/08/20 11:55 57 01/08/20 08:00 Room Air 01/08/20 08:00 95.9 55 19 106/66 (79) 100 01/08/20 07:55 52 Intake and Output 01/09/20 01/10/20 19:00 07:00 Intake Total 400 ml 825 ml Output Total 0 ml Balance 400 ml 825 ml Intake Oral 400 ml IV Total 825 ml Hemodialysis UF 0 ml # Voids 2 # Bowel Movements 6 5 Labs Test 01/07/20 20:50 01/07/20 21:06 01/07/20 21:39 01/07/20 22:10 White Blood Count 7.8 K/UL (4.8-10.8) Red Blood Count 1.61 M/UL (4.70-6.10) Hemoglobin 5.0 G/DL (14.2-18.0) Hematocrit 16.1 % (42.0-52.0) Mean Corpuscular Volume 100 FL (80-99) Mean Corpuscular Hemoglobin 31.3 PG (27.0-31.0) Mean Corpuscular Hemoglobin Concent 31.3 G/DL (32.0-36.0) Red Cell Distribution Width 16.8 % (11.6-14.8) Platelet Count 168 K/UL (150-450) Mean Platelet Volume 7.1 FL (6.5-10.1) Neutrophils (%) (Auto) % (45.0-75.0) Lymphocytes (%) (Auto) % (20.0-45.0) Monocytes (%) (Auto) % (1.0-10.0) Eosinophils (%) (Auto) % (0.0-3.0) Basophils (%) (Auto) % (0.0-2.0) Differential Total Cells Counted 100 Neutrophils % (Manual) 80 % (45-75) Lymphocytes % (Manual) 16 % (20-45) Monocytes % (Manual) 3 % (1-10) Eosinophils % (Manual) 1 % (0-3) Basophils % (Manual) 0 % (0-2) Band Neutrophils 0 % (0-8) Platelet Estimate Adequate Platelet Morphology Normal Hypochromasia 3+ Anisocytosis 3+ Macrocytosis 1+ Prothrombin Time 15.1 SEC (9.30-11.50) Prothromb Time International Ratio 1.4 (0.9-1.1) Activated Partial Thromboplast Time 55 SEC (23-33) D-Dimer 4.11 mg/L FEU (0.00-0.49) Sodium Level 138 MMOL/L (136-145) Potassium Level 6.6 MMOL/L (3.5-5.1) Chloride Level 112 MMOL/L (98-107) Carbon Dioxide Level 6 MMOL/L (21-32) Anion Gap 20 mmol/L (5-15) Blood Urea Nitrogen 158 mg/dL (7-18) Creatinine 10.2 MG/DL (0.55-1.30) Estimat Glomerular Filtration Rate 5.2 mL/min (>60) Glucose Level 78 MG/DL (74-106) Lactic Acid Level 2.30 mmol/L (0.4-2.0) Calcium Level 8.0 MG/DL (8.5-10.1) Magnesium Level 3.2 MG/DL (1.8-2.4) Ferritin 893 NG/ML (8-388) Total Bilirubin 0.3 MG/DL (0.2-1.0) Aspartate Amino Transf (AST/SGOT) 27 U/L (15-37) Alanine Aminotransferase (ALT/SGPT) 26 U/L (12-78) Alkaline Phosphatase 116 U/L (46-116) Lactate Dehydrogenase 223 U/L (81-234) Total Creatine Kinase 422 U/L (26-308) Troponin I 0.000 ng/mL (0.000-0.056) C-Reactive Protein, Quantitative 7.5 mg/dL (0.00-0.90) Pro-B-Type Natriuretic Peptide 62977 pg/mL (0-125) Total Protein 6.8 G/DL (6.4-8.2) Albumin 3.0 G/DL (3.4-5.0) Globulin 3.8 g/dL Albumin/Globulin Ratio 0.8 (1.0-2.7) Lipase 774 U/L (73-393) POC Whole Blood Glucose 196 MG/DL (74-106) Venous Blood pH 6.992 Venous Blood Partial Pressure CO2 17.2 Venous Blood Partial Pressure O2 178.2 Venous Blood HCO3 4.1 Venous Blood Base Excess -24.9 Venous Blood Carboxyhemoglobin 0.2 % (0.5-1.5) Methemoglobin 97.6 Test 01/07/20 23:45 01/08/20 03:55 01/08/20 03:57 01/08/20 04:00 Lactic Acid Level 1.20 mmol/L (0.66-2.22) POC Whole Blood Glucose 18 MG/DL (74-106) White Blood Count 7.5 K/UL (4.8-10.8) Red Blood Count 1.79 M/UL (4.70-6.10) Hemoglobin 5.5 G/DL (14.2-18.0) Hematocrit 17.1 % (42.0-52.0) Mean Corpuscular Volume 95 FL (80-99) Mean Corpuscular Hemoglobin 30.6 PG (27.0-31.0) Mean Corpuscular Hemoglobin Concent 32.1 G/DL (32.0-36.0) Red Cell Distribution Width 15.0 % (11.6-14.8) Platelet Count 112 K/UL (150-450) Mean Platelet Volume 6.9 FL (6.5-10.1) Neutrophils (%) (Auto) % (45.0-75.0) Lymphocytes (%) (Auto) % (20.0-45.0) Monocytes (%) (Auto) % (1.0-10.0) Eosinophils (%) (Auto) % (0.0-3.0) Basophils (%) (Auto) % (0.0-2.0) Differential Total Cells Counted 100 Neutrophils % (Manual) 88 % (45-75) Lymphocytes % (Manual) 11 % (20-45) Monocytes % (Manual) 1 % (1-10) Eosinophils % (Manual) 0 % (0-3) Basophils % (Manual) 0 % (0-2) Band Neutrophils 0 % (0-8) Platelet Estimate Decreased Platelet Morphology Normal Anisocytosis 1+ Sodium Level 140 MMOL/L (136-145) Potassium Level 5.0 MMOL/L (3.5-5.1) Chloride Level 114 MMOL/L (98-107) Carbon Dioxide Level 8 MMOL/L (21-32) Anion Gap 19 mmol/L (5-15) Blood Urea Nitrogen 145 mg/dL (7-18) Creatinine 9.7 MG/DL (0.55-1.30) Estimat Glomerular Filtration Rate 5.5 mL/min (>60) Glucose Level 226 MG/DL (74-106) Calcium Level 7.2 MG/DL (8.5-10.1) Total Bilirubin 0.4 MG/DL (0.2-1.0) Aspartate Amino Transf (AST/SGOT) 23 U/L (15-37) Alanine Aminotransferase (ALT/SGPT) 22 U/L (12-78) Alkaline Phosphatase 96 U/L (46-116) Total Protein 5.5 G/DL (6.4-8.2) Albumin 2.4 G/DL (3.4-5.0) Globulin 3.1 g/dL Albumin/Globulin Ratio 0.8 (1.0-2.7) Test 01/08/20 04:21 01/08/20 05:37 01/08/20 09:38 01/08/20 10:00 POC Whole Blood Glucose 137 MG/DL (74-106) 124 MG/DL (74-106) White Blood Count 7.3 K/UL (4.8-10.8) Red Blood Count 1.95 M/UL (4.70-6.10) Hemoglobin 5.9 G/DL (14.2-18.0) Hematocrit 18.2 % (42.0-52.0) Mean Corpuscular Volume 93 FL (80-99) Mean Corpuscular Hemoglobin 30.1 PG (27.0-31.0) Mean Corpuscular Hemoglobin Concent 32.3 G/DL (32.0-36.0) Red Cell Distribution Width 15.5 % (11.6-14.8) Platelet Count 118 K/UL (150-450) Mean Platelet Volume 7.2 FL (6.5-10.1) Neutrophils (%) (Auto) % (45.0-75.0) Lymphocytes (%) (Auto) % (20.0-45.0) Monocytes (%) (Auto) % (1.0-10.0) Eosinophils (%) (Auto) % (0.0-3.0) Basophils (%) (Auto) % (0.0-2.0) Differential Total Cells Counted 100 Neutrophils % (Manual) 85 % (45-75) Lymphocytes % (Manual) 13 % (20-45) Monocytes % (Manual) 2 % (1-10) Eosinophils % (Manual) 0 % (0-3) Basophils % (Manual) 0 % (0-2) Band Neutrophils 0 % (0-8) Platelet Estimate Decreased Platelet Morphology Normal Anisocytosis 1+ Test 01/08/20 11:28 01/08/20 16:45 01/08/20 17:15 01/09/20 03:03 POC Whole Blood Glucose 152 MG/DL (74-106) Ferritin 862 NG/ML (8-388) Test 01/09/20 03:08 01/09/20 09:00 01/09/20 11:58 01/09/20 12:55 White Blood Count 9.1 K/UL (4.8-10.8) Red Blood Count 3.07 M/UL (4.70-6.10) Hemoglobin 9.4 G/DL (14.2-18.0) Hematocrit 28.4 % (42.0-52.0) Mean Corpuscular Volume 92 FL (80-99) Mean Corpuscular Hemoglobin 30.6 PG (27.0-31.0) Mean Corpuscular Hemoglobin Concent 33.1 G/DL (32.0-36.0) Red Cell Distribution Width 14.6 % (11.6-14.8) Platelet Count 128 K/UL (150-450) Mean Platelet Volume 7.6 FL (6.5-10.1) Neutrophils (%) (Auto) % (45.0-75.0) Lymphocytes (%) (Auto) % (20.0-45.0) Monocytes (%) (Auto) % (1.0-10.0) Eosinophils (%) (Auto) % (0.0-3.0) Basophils (%) (Auto) % (0.0-2.0) Differential Total Cells Counted 100 Neutrophils % (Manual) 90 % (45-75) Lymphocytes % (Manual) 7 % (20-45) Monocytes % (Manual) 2 % (1-10) Eosinophils % (Manual) 1 % (0-3) Basophils % (Manual) 0 % (0-2) Band Neutrophils 0 % (0-8) Platelet Estimate Decreased Platelet Morphology Normal Anisocytosis 1+ Sodium Level 139 MMOL/L (136-145) Potassium Level 5.9 MMOL/L (3.5-5.1) Chloride Level 111 MMOL/L (98-107) Carbon Dioxide Level 6 MMOL/L (21-32) Anion Gap 22 mmol/L (5-15) Blood Urea Nitrogen 145 mg/dL (7-18) Creatinine 9.6 MG/DL (0.55-1.30) Estimat Glomerular Filtration Rate 5.5 mL/min (>60) Glucose Level 74 MG/DL (74-106) Calcium Level 7.1 MG/DL (8.5-10.1) Phosphorus Level 8.9 MG/DL (2.5-4.9) Magnesium Level 2.8 MG/DL (1.8-2.4) Total Bilirubin 0.4 MG/DL (0.2-1.0) Aspartate Amino Transf (AST/SGOT) 24 U/L (15-37) Alanine Aminotransferase (ALT/SGPT) 29 U/L (12-78) Alkaline Phosphatase 114 U/L (46-116) Total Protein 7.1 G/DL (6.4-8.2) Albumin 2.8 G/DL (3.4-5.0) Globulin 4.3 g/dL Albumin/Globulin Ratio 0.7 (1.0-2.7) Stool Occult Blood Positive (NEGATIVE) POC Whole Blood Glucose 67 MG/DL (74-106) 102 MG/DL (74-106) Test 01/09/20 17:56 01/09/20 20:41 01/10/20 02:50 01/10/20 05:35 POC Whole Blood Glucose 108 MG/DL (74-106) 105 MG/DL (74-106) Uric Acid 2.9 MG/DL (2.6-7.2) Phosphorus Level 3.3 MG/DL (2.5-4.9) Magnesium Level 2.2 MG/DL (1.8-2.4) Lactate Dehydrogenase 225 U/L (81-234) C-Reactive Protein, Quantitative 10.4 mg/dL (0.00-0.90) Pro-B-Type Natriuretic Peptide 56273 pg/mL (0-125) Triglycerides Level 78 MG/DL (30-150) Cholesterol Level 77 MG/DL (< 200) LDL Cholesterol 27 mg/dL (<100) HDL Cholesterol 41 MG/DL (40-60) Cholesterol/HDL Ratio 1.9 (3.3-4.4) Lipase 575 U/L (73-393) Thyroid Stimulating Hormone (TSH) 4.277 uiU/mL (0.358-3.740) White Blood Count 8.7 K/UL (4.8-10.8) Red Blood Count 3.19 M/UL (4.70-6.10) Hemoglobin 9.7 G/DL (14.2-18.0) Hematocrit 27.8 % (42.0-52.0) Mean Corpuscular Volume 87 FL (80-99) Mean Corpuscular Hemoglobin 30.4 PG (27.0-31.0) Mean Corpuscular Hemoglobin Concent 35.0 G/DL (32.0-36.0) Red Cell Distribution Width 14.2 % (11.6-14.8) Platelet Count 100 K/UL (150-450) Mean Platelet Volume 7.4 FL (6.5-10.1) Neutrophils (%) (Auto) % (45.0-75.0) Lymphocytes (%) (Auto) % (20.0-45.0) Monocytes (%) (Auto) % (1.0-10.0) Eosinophils (%) (Auto) % (0.0-3.0) Basophils (%) (Auto) % (0.0-2.0) Sodium Level 135 MMOL/L (136-145) Potassium Level 2.8 MMOL/L (3.5-5.1) Chloride Level 101 MMOL/L (98-107) Carbon Dioxide Level 23 MMOL/L (21-32) Anion Gap 11 mmol/L (5-15) Blood Urea Nitrogen 55 mg/dL (7-18) Creatinine 4.7 MG/DL (0.55-1.30) Estimat Glomerular Filtration Rate 12.6 mL/min (>60) Glucose Level 114 MG/DL (74-106) Calcium Level 7.3 MG/DL (8.5-10.1) Total Bilirubin 0.5 MG/DL (0.2-1.0) Aspartate Amino Transf (AST/SGOT) 16 U/L (15-37) Alanine Aminotransferase (ALT/SGPT) 12 U/L (12-78) Alkaline Phosphatase 100 U/L (46-116) Total Protein 5.5 G/DL (6.4-8.2) Albumin 2.1 G/DL (3.4-5.0) Globulin 3.4 g/dL Albumin/Globulin Ratio 0.6 (1.0-2.7) Test 01/10/20 06:20 Height (Feet): 5 Height (Inches): 8.00 Weight (Pounds): 91 Objective Physical Exam Vitals: reviewed General: GCS 15, thin, other - Cold, Chronically Ill - Cachectic Heent: dry mucus membranes, full range of motion, supple, no meningismus Respiratory: chest non-tender, lungs clear, normal breath sounds Cardiovascular: bradycardia, 2+ radial (R) Gastrointestinal: other - Spider habitus, decreased bowel sound Musculoskeletal: back normal, normal range of motion, no calf tenderness Neurologic: oriented - x 2 Psychiatric: mood/affect normal Skin: pallor - Sallow and cold Guero Hernandez MD Jan 10, 2020 06:41
--- NOTE | 2020-01-10 06:43 | General Progress Note ---
Subjective ROS Limited/Unobtainable: No Allergies: Coded Allergies: No Known Allergies (Unverified , 04/21/18) Objective Last 24 Hour Vital Signs Date Time Temp Pulse Resp B/P (MAP) Pulse Ox O2 Delivery O2 Flow Rate FiO2 01/10/20 04:00 Room Air 01/10/20 04:00 97.9 66 20 155/83 (107) 100 01/10/20 03:45 65 01/10/20 00:00 75 01/10/20 00:00 98.2 77 20 155/79 (104) 100 01/10/20 00:00 Room Air 01/09/20 20:00 97.0 56 20 121/60 (80) 100 01/09/20 20:00 Room Air 01/09/20 19:54 80 01/09/20 17:01 56 01/09/20 16:00 Room Air 01/09/20 16:00 96.8 55 20 123/67 (85) 100 01/09/20 12:00 Room Air 01/09/20 12:00 57 01/09/20 12:00 96.6 57 22 119/64 (82) 99 01/09/20 08:00 97.3 59 20 127/75 (92) 100 01/09/20 08:00 60 01/09/20 08:00 Room Air Intake and Output 01/09/20 01/10/20 19:00 07:00 Intake Total 400 ml 825 ml Output Total 0 ml Balance 400 ml 825 ml Intake Oral 400 ml IV Total 825 ml Hemodialysis UF 0 ml # Voids 2 # Bowel Movements 6 5 Laboratory Tests 01/09/20 09:00: Stool Occult Blood Positive 01/09/20 11:58: POC Whole Blood Glucose 67L 01/09/20 12:55: POC Whole Blood Glucose 102 01/09/20 17:56: POC Whole Blood Glucose 108H 01/09/20 20:41: POC Whole Blood Glucose 105 01/10/20 02:50: Uric Acid 2.9, Phosphorus Level 3.3, Magnesium Level 2.2, Lactate Dehydrogenase 225, C-Reactive Protein, Quantitative 10.4H, Pro-B-Type Natriuretic Peptide 81169S, Triglycerides Level 78, Cholesterol Level 77, LDL Cholesterol 27, HDL Cholesterol 41, Cholesterol/HDL Ratio 1.9L, Lipase 575H, Thyroid Stimulating Hormone (TSH) 4.277H, Hepatitis B Surface Antigen [Pending] 01/10/20 05:35: White Blood Count 8.7, Red Blood Count 3.19L, Hemoglobin 9.7L, Hematocrit 27.8L, Mean Corpuscular Volume 87, Mean Corpuscular Hemoglobin 30.4, Mean Corpuscular Hemoglobin Concent 35.0, Red Cell Distribution Width 14.2, Platelet Count 100L, Mean Platelet Volume 7.4, Neutrophils (%) (Auto) , Lymphocytes (%) (Auto) , Monocytes (%) (Auto) , Eosinophils (%) (Auto) , Basophils (%) (Auto) , Sodium Level 135L, Potassium Level 2.8#L, Chloride Level 101, Carbon Dioxide Level 23, Anion Gap 11, Blood Urea Nitrogen 55#H, Creatinine 4.7#H, Estimat Glomerular Filtration Rate 12.6, Glucose Level 114H, Hemoglobin A1c [Pending], Calcium Level 7.3L, Total Bilirubin 0.5, Aspartate Amino Transf (AST/SGOT) 16, Alanine Aminotransferase (ALT/SGPT) 12, Alkaline Phosphatase 100, Total Protein 5.5L, Albumin 2.1L, Globulin 3.4, Albumin/Globulin Ratio 0.6L 01/10/20 06:20: POC Whole Blood Glucose [Pending] Height (Feet): 5 Height (Inches): 8.00 Weight (Pounds): 91 General Appearance: lethargic EENT: normal ENT inspection Neck: supple Cardiovascular: normal rate Respiratory/Chest: decreased breath sounds Abdomen: normal bowel sounds, non tender, soft Extremities: non-tender Assessment/Plan Problem List: (1) Gallstones ICD Codes: K80.20 - Calculus of gallbladder without cholecystitis without obstruction SNOMED: 401521715 (2) Renal failure ICD Codes: N19 - Unspecified kidney failure SNOMED: 12783043 Qualifiers: Qualified Codes: N17.9 - Acute kidney failure, unspecified (3) Anemia ICD Codes: D64.9 - Anemia, unspecified SNOMED: 081021212 Qualifiers: Qualified Codes: D64.9 - Anemia, unspecified (4) Diabetes ICD Codes: E11.9 - Type 2 diabetes mellitus without complications SNOMED: 73195651 Assessment/Plan: stool ob positive>>> will need EGd and colonoscopy. will plan when K is corrected and stable possibly for ppi fu H&H fu nephrology pending MRCP for today repeat labs will fu León Lambert MD Jan 10, 2020 06:43
--- NOTE | 2020-01-10 07:15 | NUR ---
NURSE HAND-OFF REPORT: Important Events on Shift: HD output 0ml. NPO post midnight Patient Status: stable Diet: CCHO medium ( npo post midnight for MRI) Pending Orders: n Pending Results/Labs:BMP Redraw Pending MD notification: Latest Vital Signs: Temperature 97.9 , Pulse 66 , B/P 155 /83 , Respiratory Rate 20 , O2 SAT 100 , Room Air, O2 Flow Rate . Vital Sign Comment: n EKG Rhythm: Sinus Rhythm Rhythm change?: N MD Notified?: - MD Response: Latest Mclean Fall Score: 85 Fall Risk: High Risk Safety Measures: Call light Within Reach, Bed Alarm Zone 3, Side Rails Side Rails x3, Bed position Low and Locked. Fall Precautions: Yellow Socks Yellow Gown Door Sign Patient Fall Education Report given to Johnny Jerome RN. Endorsed BMP redraw. Changed Dialysis catheter dressing due to bleeding. No active bleeding noted while changing. Clots were remove. VS WNL. Dressing is new and intact. Will further monitor.
--- NOTE | 2020-01-10 07:27 | NUR ---
NURSE NOTES: Received report from AMARILIS Espinoza. Patient is resting in bed, in stable condition. No s/sx of SOB, breathing is even and unlabored, room air SpO2 99%. Patient alert and oriented x 4, denies any presence of pain or discomfort at this time. Bed is in lowest position, brakes engaged. Patient is NPO for MRI abdomen. Call light is kept within easy reach. Will continue to monitor patient.
[2020-01-10] MEDS: Sodium Bicarbonate 50 ML in D5W 1000ml 1,000 ML IV SCH (07:43)
[2020-01-10] MEDS: cefTRIAXone 1 GM in D5W 55 ML IVPB SCH (07:44)
[2020-01-10 08:00] VITALS: BP 121/69
[2020-01-10] MEDS: Docusate 100mg cap ORAL SCH ×3 (08:06→17:41)
[2020-01-10] MEDS: D5NS 1,000 ML IV SCH (08:08)
[2020-01-10] MEDS: Azithromycin 250mg tab ORAL SCH (08:10)
[2020-01-10] MEDS: Pantoprazole Inj IVP SCH ×2 (08:10→21:24)
[2020-01-10 09:00] LABS: CALCIUM 7.3 MG/DL (8.5-10.1); CREATININE 4.8 MG/DL (0.55-1.30); POTASSIUM 2.9 MMOL/L (3.5-5.1)
--- NOTE | 2020-01-10 09:00 | NUR ---
NURSE NOTES: Patient brought down to MRI department for MRI of abdomen as ordered by Dr. Lambert for MRCP. While at MRI department patient began to start gagging, no vomiting, patient states "not feeling well," terminated MRI, returned patient to room immediately. VS BP 124/78, RH 62, SpO2 100% room air. Called and informed Dr. Lambert of situation. Dr. Lambert acknowledged and ordered to cancel MRI today. MRI abdomen rescheduled for tomorrow AM, MRI department made aware. Charge nurse made aware. Will continue to monitor patient.
--- NOTE | 2020-01-10 09:30 | Consultation ---
DATE OF CONSULTATION: 01/09/2020 HISTORY OF PRESENT ILLNESS: The patient is a 64-year-old male with a history of unknown psychiatric disorder. The patient with he had a fall. He is Filipino speaking. He is able to able to sign the consent form for a cath placement. The patient was pleasant, answers the questions appropriately. He denies any psychiatric history. PAST MEDICAL HISTORY: , UTI, sepsis, , diabetes mellitus, hypertension, and GI bleed. ALLERGIES: No known drug allergies. SUBSTANCE ABUSE HISTORY: No known history of illicit drug use or alcohol. MENTAL STATUS EXAMINATION: The patient is alert and oriented times self, place, and situation. Mood is dysphoric. Affect is constricted, congruent with mood. Thought process is concrete. Thought content, no suicidal or homicidal ideation. Cognition is impaired . Insight and judgment, fair. ASSESSMENT: Chamberlain I Depressive disorder. Chamberlain II Deferred. Chamberlain III Chamberlain IV Chamberlain V PLAN: 1. The patient has capacity to sign consent. 2. Provide the patient with reality orientation and supportive therapy. Harry Lucia M.D. DR: Marcel JOB#: [id number] CC:
--- NOTE | 2020-01-10 09:30 | NUR ---
NURSE NOTES: Patient noted with urinary retention of 600 ml per bladder scan, attempted to insert urinary herndon catheter x 4 for urinary retention as ordered, attempts all unsuccessful, unable to advance catheter to bladder. Contacted and informed Dr. Allan of situation, acknowledged and ordered Dr. Miller for urology consult. Order entered, noted, and carried out. Will continue to monitor patient.
--- NOTE | 2020-01-10 09:32 | NUR ---
01/09...PT WAS BROUGHT DOWN TO MRI WITH AMARILIS CONNER. PT SEEMS TO HAVE RESPIRATORY ISSUES WHEN LYING FLAT. PT DID NOT APPEAR IN DISTRESS; NEVERTHELESS, PT WAS IMMEDIATELY BROUGHT BACK TO THE FLOOR. AMARILIS CONNER WILL CALL WHEN PT IS MORE STABLE. IDRIS 9:32
--- NOTE | 2020-01-10 09:55 | Pulmonology Progress Note ---
Subjective ROS Limited/Unobtainable: No Interval Events: S/p HD; ABG reviewed Constitutional: Reports: no symptoms HEENT: Repors: no symptoms Respiratory: Reports: no symptoms Cardiovascular: Reports: no symptoms Gastrointestinal/Abdominal: Reports: no symptoms Genitourinary: Reports: no symptoms Allergies: Coded Allergies: No Known Allergies (Unverified , 04/21/18) Objective Last 24 Hour Vital Signs Date Time Temp Pulse Resp B/P (MAP) Pulse Ox O2 Delivery O2 Flow Rate FiO2 01/10/20 07:33 58 01/10/20 04:00 Room Air 01/10/20 04:00 97.9 66 20 155/83 (107) 100 01/10/20 03:45 65 01/10/20 00:00 75 01/10/20 00:00 98.2 77 20 155/79 (104) 100 01/10/20 00:00 Room Air 01/09/20 20:00 97.0 56 20 121/60 (80) 100 01/09/20 20:00 Room Air 01/09/20 19:54 80 01/09/20 17:01 56 01/09/20 16:00 Room Air 01/09/20 16:00 96.8 55 20 123/67 (85) 100 01/09/20 12:00 Room Air 01/09/20 12:00 57 01/09/20 12:00 96.6 57 22 119/64 (82) 99 Intake and Output 01/09/20 01/10/20 19:00 07:00 Intake Total 400 ml 900 ml Output Total 0 ml Balance 400 ml 900 ml Intake Oral 400 ml IV Total 900 ml Hemodialysis UF 0 ml # Voids 2 # Bowel Movements 6 5 General Appearance: no acute distress HEENT: normocephalic Respiratory: chest wall non-tender, lungs clear Cardiovascular: normal peripheral pulses Abdomen: normal bowel sounds Microbiology Date/Time Source Procedure Growth Status 01/08/20 16:45 Stool Clostridium difficile Toxin Assay - Final Complete 01/07/20 20:50 Nasopharynx SARS-CoV-2 RdRp Gene Assay - Final Complete Laboratory Tests 01/09/20 11:58: POC Whole Blood Glucose 67L 01/09/20 12:55: POC Whole Blood Glucose 102 01/09/20 17:56: POC Whole Blood Glucose 108H 01/09/20 20:41: POC Whole Blood Glucose 105 01/10/20 02:50: Uric Acid 2.9, Phosphorus Level 3.3, Magnesium Level 2.2, Lactate Dehydrogenase 225, C-Reactive Protein, Quantitative 10.4H, Pro-B-Type Natriuretic Peptide 19 089H, Triglycerides Level 78, Cholesterol Level 77, LDL Cholesterol 27, HDL Cholesterol 41, Cholesterol/HDL Ratio 1.9L, Lipase 575H, Thyroid Stimulating Hormone (TSH) 4.277H, Hepatitis B Surface Antigen [Pending] 01/10/20 04:00: Arterial Blood pH 7.525H, Arterial Blood Partial Pressure CO2 25.9L, Arterial Blood Partial Pressure O2 112.0H, Arterial Blood HCO3 20.9L, Arterial Blood Oxygen Saturation 97.2, Arterial Blood Base Excess -1.3, Joe Test Positive 01/10/20 05:35: White Blood Count 8.7, Red Blood Count 3.19L, Hemoglobin 9.7L, Hematocrit 27.8L, Mean Corpuscular Volume 87, Mean Corpuscular Hemoglobin 30.4, Mean Corpuscular Hemoglobin Concent 35.0, Red Cell Distribution Width 14.2, Platelet Count 100L, Mean Platelet Volume 7.4, Neutrophils (%) (Auto) , Lymphocytes (%) (Auto) , Monocytes (%) (Auto) , Eosinophils (%) (Auto) , Basophils (%) (Auto) , Sodium Level 135L, Potassium Level 2.8#L, Chloride Level 101, Carbon Dioxide Level 23, Anion Gap 11, Blood Urea Nitrogen 55#H, Creatinine 4.7#H, Estimat Glomerular Filtration Rate 12.6, Glucose Level 114H, Hemoglobin A1c 5.4, Calcium Level 7.3L , Total Bilirubin 0.5, Aspartate Amino Transf (AST/SGOT) 16, Alanine Aminotransferase (ALT/SGPT) 12, Alkaline Phosphatase 100, Total Protein 5.5L, Albumin 2.1L, Globulin 3.4, Albumin/Globulin Ratio 0.6L 01/10/20 06:20: POC Whole Blood Glucose [Pending] 01/10/20 08:00: Sodium Level 135L, Potassium Level 2.9L, Chloride Level 101, Carbon Dioxide Level 25, Anion Gap 9, Blood Urea Nitrogen 55H, Creatinine 4.8H, Estimat Glomerular Filtration Rate 12.3, Glucose Level 105, Calcium Level 7.3L 01/10/20 09:29: POC Whole Blood Glucose [Pending] Current Medications Medications (Trade) Dose Ordered Sig/Jamal Route PRN Reason Start Time Stop Time Status Last Admin Dose Admin Azithromycin (Zithromax) 250 mg DAILY ORAL 01/09/20 09:00 01/16/20 08:59 01/10/20 08:10 Bisacodyl (Dulcolax) 10 mg ONCE ORAL 01/10/20 16:00 01/10/20 17:00 Ceftriaxone Sodium 1 gm/ Dextrose 55 ml @ 110 mls/hr Q24H IVPB 01/09/20 08:00 01/16/20 07:59 01/10/20 07:44 Chlorhexidine Gluconate (Jen-Hex 2%) 1 applic DAILY@2000 TOPIC 01/10/20 20:00 04/09/20 19:59 Dextrose (Dextrose 50%) 25 ml Q30M PRN IV Hypoglycemia 01/08/20 04:15 04/07/20 04:14 01/09/20 12:09 Dextrose (Dextrose 50%) 50 ml Q30M PRN IV Hypoglycemia 01/08/20 04:15 04/07/20 04:14 Dextrose/Sodium Chloride 1,000 ml @ 50 mls/hr Q20H IV 01/10/20 08:00 02/09/20 07:59 01/10/20 08:08 Docusate Sodium (Colace) 100 mg THREE TIMES A DAY ORAL 01/09/20 18:00 02/08/20 17:59 Epoetin Andre (Epoetin Andre-EPBX(NON ESRD)) 6,000 unit THU-THU-THU SUBQ 01/09/20 21:00 04/08/20 20:59 01/09/20 20:58 Heparin Sodium/ Sodium Chloride (Heparin 1000 units/500ml Premix) 1,000 unit ONCE PRN INJ catheter placement 01/09/20 16:15 01/11/20 16:14 Insulin Aspart (NovoLOG) BEFORE MEALS AND HS SUBQ 01/08/20 06:30 04/07/20 06:29 Lidocaine HCl (Xylocaine 1% 30ml) 30 ml ONCE PRN INJ catheter placement 01/09/20 16:15 01/11/20 16:14 Mirtazapine (Remeron) 7.5 mg QHS PRN ORAL insomnia 10/27/20 00:30 04/09/20 00:29 Pantoprazole (Protonix) 40 mg EVERY 12 HOURS IVP 01/10/20 09:00 02/09/20 08:59 01/10/20 08:10 Polyethylene Glycol (Miralax) 238 gm ONCE ORAL 01/10/20 16:00 01/10/20 17:00 Potassium Chloride 100 ml @ 50 mls/hr Q1H IVPB 01/10/20 08:00 01/10/20 09:59 01/10/20 09:37 Tamsulosin HCl (Flomax) 0.4 mg BEDTIME ORAL 01/09/20 21:00 02/08/20 20:59 Assessment/Plan Assessment/Plan ASSESSMENT AND PLAN: 1. Sinus bradycardia. 2. Profound anemia, status post blood transfusion. 3. Mild pulmonary hypertension 4. Probable pneumonia Agree with broad-spectrum antibiotics. saturating well on RA now S/p hemodialysis Nataliya Mclaughlin Omar Syed MD Jan 10, 2020 09:55
--- NOTE | 2020-01-10 10:00 | NUR ---
NURSE NOTES: This nurse called Dr. Millre's office left message regarding urology consult.
--- NOTE | 2020-01-10 10:10 | NUR ---
NURSE NOTES: Patient's right IJ non-tunneled dialysis catheter site noted with leaking with red tinged fluid. Dr. Berrios made aware, Dr. Berrios acknowledge and instructed this nurse to contact who placed catheter in. This nurse contacted interventional radiology and informed Robbie, arch support technician made aware of assessments. Robbie acknowledged and seen patient at bedside. Right IJ non-tunneled dialysis catheter dressing changed by Robbie arch support technician, per Robbie do not change dressing at this time, site needs to coagulate. Charge nurse made aware. Will follow as recommended by radiology department
--- NOTE | 2020-01-10 10:15 | NUR ---
NURSE NOTES: Dr. Miller called nurse station and informed this nurse that Dr. Pedraza is covering for him at this time. This nurse called Dr. Pedraza's office and left message regarding new urology consult.
--- NOTE | 2020-01-10 11:45 | NUR ---
NURSE NOTES: Dr. Pedraza called back nurse station and informed this nurse they will come in today to insert urinary herndon catheter for urinary retention. Noted. Urology cart placed on standby.
[2020-01-10 12:00] VITALS: BP 141/74
[2020-01-10] MEDS ORDERED: Polyethylene Glycol 238gm bottle ORAL SCH ×2 (12:00→16:00)
[2020-01-10] MEDS ORDERED: Bisacodyl EC 5mg tab ORAL SCH ×2 (12:00→16:00)
--- NOTE | 2020-01-10 12:00 | NUR ---
NURSE NOTES: Patient signed consents for colonoscopy and EGD with possible biopsy. AMARILIS Greenberg wheel press operator. Consents placed in chart. Noted. Will continue to monitor patient.
--- NOTE | 2020-01-10 12:28 | NUR ---
CASE MANAGEMENT REVIEW: SI: HYPOTHERMIA/HYPOKALEMIA BP 121/69 T 98.2 HR 60 RR 20 SPO2 100% RA K+ 2.9 BUN 55 CREATININE 4.8 IS: D5 NS@ 50CC/HR ROCEPHIN IV ZITHROMAX PO FLOMAX PO KCL IV S/P PLACEMENT OF RIJ CATHETER FOR HD 01/08 S/P HD 01/08 UROLOGY CONSULT FOR URETER OBSTRUCTION & F/C PLACEMENT STOOL OB+ PLAN FOR EGD/COLONOSCOPY WHEN K+ STABILIZES MRCP 01/09 SAMAN STATUS
--- NOTE | 2020-01-10 13:02 | Nephrology Progress Note ---
Assessment/Plan Problem List: (1) JONA (acute kidney injury) (2) Hyperkalemia (3) Anemia (4) Metabolic acidosis (5) Ureter obstruction (6) Failure to thrive Assessment Renal failure acute, superimposed on chronic Hyperkalemia Acidosis Presented with severe anemia on admission, transfused 3 units packed RBCs since admission. History of hypertension History of diabetes mellitus 01/09/2020----PATIENT NEED EMERGENCY LIFE SAVING DIALYSIS Plan Insertion of temporary non tunneled dialysis catheter followed by dialysis to correct acidosis hyperkalemia, done yesterday Continue per consultants Monitor electrolytes and renal parameters Hemodialysis as needed Urology evaluation for urinary retention Per orders Subjective ROS Limited/Unobtainable: No Constitutional: Reports: malaise Objective Objective Last 24 Hour Vital Signs Date Time Temp Pulse Resp B/P (MAP) Pulse Ox O2 Delivery O2 Flow Rate FiO2 01/10/20 12:00 Room Air 01/10/20 11:50 62 01/10/20 08:00 98.2 60 20 121/69 (86) 100 01/10/20 08:00 Room Air 01/10/20 07:33 58 01/10/20 04:00 Room Air 01/10/20 04:00 97.9 66 20 155/83 (107) 100 01/10/20 03:45 65 01/10/20 00:00 75 01/10/20 00:00 98.2 77 20 155/79 (104) 100 01/10/20 00:00 Room Air 01/09/20 20:00 97.0 56 20 121/60 (80) 100 01/09/20 20:00 Room Air 01/09/20 19:54 80 01/09/20 17:01 56 01/09/20 16:00 Room Air 01/09/20 16:00 96.8 55 20 123/67 (85) 100 Intake and Output 01/09/20 01/10/20 19:00 07:00 Intake Total 400 ml 900 ml Output Total 0 ml Balance 400 ml 900 ml Intake Oral 400 ml IV Total 900 ml Hemodialysis UF 0 ml # Voids 2 # Bowel Movements 6 5 Current Medications Medications (Trade) Dose Ordered Sig/Jamal Route PRN Reason Start Time Stop Time Status Last Admin Dose Admin Azithromycin (Zithromax) 250 mg DAILY ORAL 01/09/20 09:00 01/16/20 08:59 01/10/20 08:10 Ceftriaxone Sodium 1 gm/ Dextrose 55 ml @ 110 mls/hr Q24H IVPB 01/09/20 08:00 01/16/20 07:59 01/10/20 07:44 Chlorhexidine Gluconate (Jen-Hex 2%) 1 applic DAILY@2000 TOPIC 01/10/20 20:00 04/09/20 19:59 Dextrose (Dextrose 50%) 25 ml Q30M PRN IV Hypoglycemia 01/08/20 04:15 04/07/20 04:14 01/09/20 12:09 Dextrose (Dextrose 50%) 50 ml Q30M PRN IV Hypoglycemia 01/08/20 04:15 04/07/20 04:14 Dextrose/Sodium Chloride 1,000 ml @ 50 mls/hr Q20H IV 01/10/20 08:00 02/09/20 07:59 01/10/20 08:08 Docusate Sodium (Colace) 100 mg THREE TIMES A DAY ORAL 01/09/20 18:00 02/08/20 17:59 Epoetin Andre (Epoetin Andre-EPBX(NON ESRD)) 6,000 unit THU-THU-THU SUBQ 01/09/20 21:00 04/08/20 20:59 01/09/20 20:58 Heparin Sodium/ Sodium Chloride (Heparin 1000 units/500ml Premix) 1,000 unit ONCE PRN INJ catheter placement 01/09/20 16:15 01/11/20 16:14 Insulin Aspart (NovoLOG) BEFORE MEALS AND HS SUBQ 01/08/20 06:30 04/07/20 06:29 Lidocaine HCl (Xylocaine 1% 30ml) 30 ml ONCE PRN INJ catheter placement 01/09/20 16:15 01/11/20 16:14 Mirtazapine (Remeron) 7.5 mg QHS PRN ORAL insomnia 01/10/20 00:30 04/09/20 00:29 Pantoprazole (Protonix) 40 mg EVERY 12 HOURS IVP 01/10/20 09:00 02/09/20 08:59 01/10/20 08:10 Tamsulosin HCl (Flomax) 0.4 mg BEDTIME ORAL 01/09/20 21:00 02/08/20 20:59 Laboratory Tests 01/09/20 17:56: POC Whole Blood Glucose 108H 01/09/20 20:41: POC Whole Blood Glucose 105 01/10/20 02:50: Uric Acid 2.9, Phosphorus Level 3.3, Magnesium Level 2.2, Lactate Dehydrogenase 225, C-Reactive Protein, Quantitative 10.4H, Pro-B-Type Natriuretic Peptide 77294V, Triglycerides Level 78, Cholesterol Level 77, LDL Cholesterol 27, HDL Cholesterol 41, Cholesterol/HDL Ratio 1.9L, Lipase 575H, Thyroid Stimulating Hormone (TSH) 4.277H, Hepatitis B Surface Antigen [Pending] 01/10/20 04:00: Arterial Blood pH 7.525H, Arterial Blood Partial Pressure CO2 25.9L, Arterial Blood Partial Pressure O2 112.0H, Arterial Blood HCO3 20.9L, Arterial Blood Oxygen Saturation 97.2, Arterial Blood Base Excess -1.3, Joe Test Positive 01/10/20 05:35: White Blood Count 8.7, Red Blood Count 3.19L, Hemoglobin 9.7L, Hematocrit 27.8L, Mean Corpuscular Volume 87, Mean Corpuscular Hemoglobin 30.4, Mean Corpuscular Hemoglobin Concent 35.0, Red Cell Distribution Width 14.2, Platelet Count 100L, Mean Platelet Volume 7.4, Neutrophils (%) (Auto) , Lymphocytes (%) (Auto) , Monocytes (%) (Auto) , Eosinophils (%) (Auto) , Basophils (%) (Auto) , Sodium Level 135L, Potassium Level 2.8#L, Chloride Level 101, Carbon Dioxide Level 23, Anion Gap 11, Blood Urea Nitrogen 55#H, Creatinine 4.7#H, Estimat Glomerular Filtration Rate 12.6, Glucose Level 114H, Hemoglobin A1c 5.4, Calcium Level 7.3L , Total Bilirubin 0.5, Aspartate Amino Transf (AST/SGOT) 16, Alanine Aminotransferase (ALT/SGPT) 12, Alkaline Phosphatase 100, Total Protein 5.5L, Albumin 2.1L, Globulin 3.4, Albumin/Globulin Ratio 0.6L 01/10/20 06:20: POC Whole Blood Glucose [Pending] 01/10/20 08:00: Sodium Level 135L, Potassium Level 2.9L, Chloride Level 101, Carbon Dioxide Level 25, Anion Gap 9, Blood Urea Nitrogen 55H, Creatinine 4.8H, Estimat Glomerular Filtration Rate 12.3, Glucose Level 105, Calcium Level 7.3L 01/10/20 09:29: POC Whole Blood Glucose [Pending] 01/10/20 11:50: POC Whole Blood Glucose [Pending] Height (Feet): 5 Height (Inches): 8.00 Weight (Pounds): 91 General Appearance: no apparent distress, lethargic Cardiovascular: normal rate Respiratory/Chest: decreased breath sounds Abdomen: distended Orlin Berrios MD Jan 10, 2020 13:02
[2020-01-10] MEDS: Tamsulosin 0.4mg cap ORAL SCH ×2 (13:45→17:45)
--- NOTE | 2020-01-10 14:10 | NUR ---
NURSE NOTES: Dr. Condon seen and examined patient at bedside, made MD aware of today's ABG results of pH 7.525, pCO2 25.9, pO2 112.9, HCO3 20.9. Dr. Condon acknowledged, stated stable from pulmonology perspective, and gave no new orders at this time. Will continue to monitor patient.
--- NOTE | 2020-01-10 15:46 | General Progress Note ---
Subjective Allergies: Coded Allergies: No Known Allergies (Unverified , 04/21/18) Subjective bed bound ,poor po intake, sob doing better had hd Objective Last 24 Hour Vital Signs Date Time Temp Pulse Resp B/P (MAP) Pulse Ox O2 Delivery O2 Flow Rate FiO2 01/10/20 12:00 97.7 55 20 141/74 (96) 100 01/10/20 12:00 Room Air 01/10/20 11:50 62 01/10/20 08:00 98.2 60 20 121/69 (86) 100 01/10/20 08:00 Room Air 01/10/20 07:33 58 01/10/20 04:00 Room Air 01/10/20 04:00 97.9 66 20 155/83 (107) 100 01/10/20 03:45 65 01/10/20 00:00 75 01/10/20 00:00 98.2 77 20 155/79 (104) 100 01/10/20 00:00 Room Air 01/09/20 20:00 97.0 56 20 121/60 (80) 100 01/09/20 20:00 Room Air 01/09/20 19:54 80 01/09/20 17:01 56 01/09/20 16:00 Room Air 01/09/20 16:00 96.8 55 20 123/67 (85) 100 Intake and Output 01/09/20 01/10/20 19:00 07:00 Intake Total 400 ml 900 ml Output Total 0 ml Balance 400 ml 900 ml Intake Oral 400 ml IV Total 900 ml Hemodialysis UF 0 ml # Voids 2 # Bowel Movements 6 5 Laboratory Tests 01/09/20 17:56: POC Whole Blood Glucose 108H 01/09/20 20:41: POC Whole Blood Glucose 105 01/10/20 02:50: Uric Acid 2.9, Phosphorus Level 3.3, Magnesium Level 2.2, Lactate Dehydrogenase 225, C-Reactive Protein, Quantitative 10.4H, Pro-B-Type Natriuretic Peptide 58336L, Triglycerides Level 78, Cholesterol Level 77, LDL Cholesterol 27, HDL Cholesterol 41, Cholesterol/HDL Ratio 1.9L, Lipase 575H, Thyroid Stimulating Hormone (TSH) 4.277H, Hepatitis B Surface Antigen Negative 01/10/20 04:00: Arterial Blood pH 7.525H, Arterial Blood Partial Pressure CO2 25.9L, Arterial Blood Partial Pressure O2 112.0H, Arterial Blood HCO3 20.9L, Arterial Blood Oxygen Saturation 97.2, Arterial Blood Base Excess -1.3, Joe Test Positive 01/10/20 05:35: White Blood Count 8.7, Red Blood Count 3.19L, Hemoglobin 9.7L, Hematocrit 27.8L, Mean Corpuscular Volume 87, Mean Corpuscular Hemoglobin 30.4, Mean Corpuscular Hemoglobin Concent 35.0, Red Cell Distribution Width 14.2, Platelet Count 100L, Mean Platelet Volume 7.4, Neutrophils (%) (Auto) , Lymphocytes (%) (Auto) , Monocytes (%) (Auto) , Eosinophils (%) (Auto) , Basophils (%) (Auto) , Sodium Level 135L, Potassium Level 2.8#L, Chloride Level 101, Carbon Dioxide Level 23, Anion Gap 11, Blood Urea Nitrogen 55#H, Creatinine 4.7#H, Estimat Glomerular Filtration Rate 12.6, Glucose Level 114H, Hemoglobin A1c 5.4, Calcium Level 7.3L , Total Bilirubin 0.5, Aspartate Amino Transf (AST/SGOT) 16, Alanine Aminotransferase (ALT/SGPT) 12, Alkaline Phosphatase 100, Total Protein 5.5L, Al bumin 2.1L, Globulin 3.4, Albumin/Globulin Ratio 0.6L 01/10/20 06:20: POC Whole Blood Glucose 111H 01/10/20 08:00: Sodium Level 135L, Potassium Level 2.9L, Chloride Level 101, Carbon Dioxide Level 25, Anion Gap 9, Blood Urea Nitrogen 55H, Creatinine 4.8H, Estimat Glomerular Filtration Rate 12.3, Glucose Level 105, Calcium Level 7.3L 01/10/20 09:29: POC Whole Blood Glucose 90 01/10/20 11:50: POC Whole Blood Glucose 96 Height (Feet): 5 Height (Inches): 8.00 Weight (Pounds): 91 General Appearance: alert EENT: PERRL/EOMI Neck: non-tender Cardiovascular: normal rate Respiratory/Chest: crackles/rales Abdomen: non tender, soft Extremities: non-tender Neurologic: responsive Skin: warm/dry Assessment/Plan Assessment/Plan: ac kidney failure need hd, nephro on case 1 anemia r/o gi bleeding hh better 2 severe malnutrition 3 wt loss 4 fever r/o sepsis 5dm type 2 transfuse 2 more u of prbc gi eval cont ss, accue check pt/ot Kamron Dong MD Jan 10, 2020 15:46
[2020-01-10 16:00] VITALS: BP 117/61
--- NOTE | 2020-01-10 16:30 | NUR ---
NURSE NOTES: Patient noted with potassium level of 2.9 this morning, already replaced by Dr. Berrios with potassium chloride IV 10 mEq x 2 this morning. Patient noted with bowel preparation medications, miralax for tomorrow mornings's colonoscopy per Dr. Lambert, made Dr. Lambert aware that patient's potassium level this morning was 2.9 and inquired if would like to add additional replacement for potassium in light of bowel preparation. Dr. Lambert acknowledged and instructed this nurse to call Dr. Berrios for additional orders. Acknowledged. This nurse called Dr. Berrios on emergency telephone number , call directed to voicemail, this nurse left voice mail, "Per Dr. Lambert instructed this nurse to call you if you would like to give additional potassium replacement due to patient bowel preparation for colonoscopy tomorrow morning with Dr. Lambert. If you would like to give any further instructions regarding this please call us at ." End call. Awaiting call back. Will continue to monitor patient. Will endorse accordingly.
--- NOTE | 2020-01-10 17:00 | NUR ---
NURSE NOTES: Dr. Pedraza seen and examined patient at bedside. 18 fr urinary herndon catheter inserted at bedside, 700 ml yellow urine noted draining. Will continue to monitor patient.
--- NOTE | 2020-01-10 17:39 | NUR ---
NURSE NOTES: Patient was given Tamsulosin 0.4 mg PO at 1300 hours. Order is for BID. Tamsulosin 0.4 mg PO noted again due at 1800 hours. This nurse called and spoke with pharmacist to verify if okay to give dose of Tamsulosin 0.4 mg at 1800. Pharmacist acknowledged and verified okay to give dose of Tamsulosin 0.4 mg PO at 1800 hours. Dose given as ordered. Will continue to monitor patient.
--- NOTE | 2020-01-10 18:30 | NUR ---
NURSE HAND-OFF REPORT: Important Events on Shift: Patient Status: Stable Diet: Clear liquid Pending Orders:None. Pending Results/Labs:None Pending MD notification:None Latest Vital Signs: Temperature 98.2 , Pulse 60 , B/P 117 /61 , Respiratory Rate 20 , O2 SAT 100 , Room Air, O2 Flow Rate . Vital Sign Comment: Stable EKG Rhythm: Sinus Rhythm Rhythm change?: N MD Notified?: - MD Response: Latest Mclean Fall Score: 85 Fall Risk: High Risk Safety Measures: Call light Within Reach, Bed Alarm Zone 3, Side Rails Side Rails x3, Bed position Low and Locked. Fall Precautions: Yellow Socks Yellow Gown Door Sign Patient Fall Education Report given to AMARILIS Antoine. Addendum: 01/10/20 at 2013 by RUFINA TORIBIO RN NURSE NOTES: Hand off noted timed for 0.
--- NOTE | 2020-01-10 19:20 | NUR ---
NURSE NOTES: Patient noted with remaining bowel preparation medication, endorsed to AMARILIS Antoine to continue administering bowel preparation medications for tomorrow's colonoscopy with Dr. Lambert. AMARILIS Antoine acknowledged. Noted.
--- NOTE | 2020-01-10 19:21 | NUR ---
NURSE NOTES: Report received from AMARILIS Turner. Made aware of plan of care for Colonoscopy/EGD and MRCP in AM. Saturating 100% on room air. EKG shows SR. NPO Midnight but encouraged to finish Mirilax. Left arm IV nonpatent. Will attempt to reinsert in AM. Made aware of alterations in skin integrity. 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 Pt in stable condition. call light within reach. will continue to monitor
[2020-01-10 20:00] VITALS: BP 125/76
--- NOTE | 2020-01-10 21:00 | NUR ---
NURSE NOTES: Right IJ leaking. Questioned purpose of IJ. Per RN Johnny, radiologists wants to keep for now.
[2020-01-10] MEDS: Dyna-Hex 2% Top Sol 2oz TOPIC SCH (21:24)
--- NOTE | 2020-01-10 21:42 | Cardiology Progress Note ---
Assessment/Plan Assessment/Plan 1. Sinus bradycardia, possibly due to hypothermia, no cardiac intervention is required at this time. 2. Profound anemia, status post blood transfusion. 3. Mild pulmonary hypertension, 2D echocardiography in April 2018 had showed normal LV systolic and diastolic function. Subjective Subjective Sinus bradycardia at rate of 57. Objective Last 24 Hour Vital Signs Date Time Temp Pulse Resp B/P (MAP) Pulse Ox O2 Delivery O2 Flow Rate FiO2 01/10/20 17:00 Room Air 01/10/20 16:00 98.2 57 20 117/61 (79) 100 01/10/20 16:00 Room Air 01/10/20 16:00 60 01/10/20 12:00 97.7 55 20 141/74 (96) 100 01/10/20 12:00 Room Air 01/10/20 11:50 62 01/10/20 08:00 98.2 60 20 121/69 (86) 100 01/10/20 08:00 Room Air 01/10/20 07:33 58 01/10/20 04:00 Room Air 01/10/20 04:00 97.9 66 20 155/83 (107) 100 01/10/20 03:45 65 01/10/20 00:00 75 01/10/20 00:00 98.2 77 20 155/79 (104) 100 01/10/20 00:00 Room Air Intake and Output 01/09/20 01/10/20 19:00 07:00 Intake Total 400 ml 900 ml Output Total 0 ml Balance 400 ml 900 ml Intake Oral 400 ml IV Total 900 ml Hemodialysis UF 0 ml # Voids 2 # Bowel Movements 6 5 Laboratory Tests Test 01/10/20 02:50 01/10/20 04:00 01/10/20 05:35 01/10/20 06:20 Uric Acid 2.9 MG/DL (2.6-7.2) Phosphorus Level 3.3 MG/DL (2.5-4.9) Magnesium Level 2.2 MG/DL (1.8-2.4) Lactate Dehydrogenase 225 U/L (81-234) C-Reactive Protein, Quantitative 10.4 mg/dL (0.00-0.90) H Pro-B-Type Natriuretic Peptide 31329 pg/mL (0-125) H Triglycerides Level 78 MG/DL (30-150) Cholesterol Level 77 MG/DL (< 200) LDL Cholesterol 27 mg/dL (<100) HDL Cholesterol 41 MG/DL (40-60) Cholesterol/HDL Ratio 1.9 (3.3-4.4) L Lipase 575 U/L (73-393) H Thyroid Stimulating Hormone (TSH) 4.277 uiU/mL (0.358-3.740) Hepatitis B Surface Antigen Negative (NEGATIVE) Arterial Blood pH 7.525 (7.350-7.450) Arterial Blood Partial Pressure CO2 25.9 mmHg (35.0-45.0) L Arterial Blood Partial Pressure O2 112.0 mmHg (75.0-100.0) H Arterial Blood HCO3 20.9 mmol/L (22.0-26.0) L Arterial Blood Oxygen Saturation 97.2 % (95-100) Arterial Blood Base Excess -1.3 (-2-2) Joe Test Positive White Blood Count 8.7 K/UL (4.8-10.8) Red Blood Count 3.19 M/UL (4.70-6.10) L Hemoglobin 9.7 G/DL (14.2-18.0) L Hematocrit 27.8 % (42.0-52.0) L Mean Corpuscular Volume 87 FL (80-99) Mean Corpuscular Hemoglobin 30.4 PG (27.0-31.0) Mean Corpuscular Hemoglobin Concent 35.0 G/DL (32.0-36.0) Red Cell Distribution Width 14.2 % (11.6-14.8) Platelet Count 100 K/UL (150-450) L Mean Platelet Volume 7.4 FL (6.5-10.1) Neutrophils (%) (Auto) % (45.0-75.0) Lymphocytes (%) (Auto) % (20.0-45.0) Monocytes (%) (Auto) % (1.0-10.0) Eosinophils (%) (Auto) % (0.0-3.0) Basophils (%) (Auto) % (0.0-2.0) Sodium Level 135 MMOL/L (136-145) L Potassium Level 2.8 MMOL/L (3.5-5.1) #L Chloride Level 101 MMOL/L (98-107) Carbon Dioxide Level 23 MMOL/L (21-32) Anion Gap 11 mmol/L (5-15) Blood Urea Nitrogen 55 mg/dL (7-18) #H Creatinine 4.7 MG/DL (0.55-1.30) #H Estimat Glomerular Filtration Rate 12.6 mL/min (>60) Glucose Level 114 MG/DL (74-106) H Hemoglobin A1c 5.4 % (4.3-6.0) Calcium Level 7.3 MG/DL (8.5-10.1) L Total Bilirubin 0.5 MG/DL (0.2-1.0) Aspartate Amino Transf (AST/SGOT) 16 U/L (15-37) Alanine Aminotransferase (ALT/SGPT) 12 U/L (12-78) Alkaline Phosphatase 100 U/L (46-116) Total Protein 5.5 G/DL (6.4-8.2) L Albumin 2.1 G/DL (3.4-5.0) L Globulin 3.4 g/dL Albumin/Globulin Ratio 0.6 (1.0-2.7) L POC Whole Blood Glucose 111 MG/DL (74-106) H Test 01/10/20 08:00 01/10/20 09:29 01/10/20 11:50 01/10/20 16:22 Sodium Level 135 MMOL/L (136-145) L Potassium Level 2.9 MMOL/L (3.5-5.1) L Chloride Level 101 MMOL/L (98-107) Carbon Dioxide Level 25 MMOL/L (21-32) Anion Gap 9 mmol/L (5-15) Blood Urea Nitrogen 55 mg/dL (7-18) H Creatinine 4.8 MG/DL (0.55-1.30) H Estimat Glomerular Filtration Rate 12.3 mL/min (>60) Glucose Level 105 MG/DL (74-106) Calcium Level 7.3 MG/DL (8.5-10.1) L POC Whole Blood Glucose 90 MG/DL (74-106) 96 MG/DL (74-106) Pending Test 01/10/20 21:28 POC Whole Blood Glucose Pending Microbiology Date/Time Source Procedure Growth Status 01/08/20 16:45 Stool Stool Culture - Preliminary NORMAL FECAL IQRA. Resulted 01/08/20 16:45 Stool Clostridium difficile Toxin Assay - Final Complete Objective HEENT: Atraumatic and normocephalic. Anicteric. Pupils are equal, round, and reactive to light and accommodation. Extraocular muscles are intact. NECK: JVP less than 5 cm. No carotid bruit. Carotid upstrokes 2+ bilaterally. CARDIOVASCULAR: Normal S1, S2. Regular rate and rhythm, bradycardic. No murmurs, gallops, or rubs. PMI is at fourth intercostal space, midclavicular line. LUNGS: Clear to auscultation bilaterally. ABDOMEN: No hepatosplenomegaly. Soft and nondistended. Positive bowel sounds. EXTREMITIES: No evidence of edema, clubbing or cyanosis. Alvaro Hargrove MD Jan 10, 2020 21:42
[2020-01-11] VITALS (10 sets, daily range): BP systolic 111–149; BP diastolic 54–76
[2020-01-11 04:59] LABS: BASOPHILS % (AUTO) 0.5 % (0.0-2.0); EOSINOPHILS % (AUTO) 0.3 % (0.0-3.0); HEMATOCRIT 25.7 % (42.0-52.0); HEMOGLOBIN 8.9 G/DL (14.2-18.0); MEAN CORPUSCULAR VOLUME 88 FL (80-99); MONOCYTES % (AUTO) 5.9 % (1.0-10.0); NEUTROPHILS % (AUTO) 77.3 % (45.0-75.0); PLATELET COUNT 102 K/UL (150-450); RED BLOOD COUNT 2.91 M/UL (4.70-6.10); RED CELL DISTRIBUTION WIDTH 14.1 % (11.6-14.8); WHITE BLOOD COUNT 7.9 K/UL (4.8-10.8)
[2020-01-11] MEDS: D5NS 1,000 ML IV SCH ×2 (05:20→23:37)
[2020-01-11 05:28] LABS: PHOSPHORUS 5.5 MG/DL (2.5-4.9)
[2020-01-11 05:32] LABS: ALBUMIN 2.1 G/DL (3.4-5.0); ALBUMIN/GLOBULIN RATIO 0.6 (1.0-2.7); BILIRUBIN,TOTAL 0.5 MG/DL (0.2-1.0); CALCIUM 7.2 MG/DL (8.5-10.1); CREATININE 5.5 MG/DL (0.55-1.30); POTASSIUM 3.4 MMOL/L (3.5-5.1)
--- NOTE | 2020-01-11 06:17 | Hematology/Onc Progress Note ---
Assessment/Plan Assessment/Plan Assessment and Recs # Anemia of chronic disease - likely multifactorial, with sepsis, poorly controlled DM2, and esrd --> Anemia workup has been ordered, reviewed --> No evidence of hemolysis is noted, peripheral smear has been reviewed. --> Hgb goal >7. Transfuse prn. --> Epogen started --> hgb 5-->5.9-->9.4->9.7-->8.9 ==> hold off on iron --> occult ++ seen by Gi --> colo for 01/10 # Thrombocytopenia likely due to liver disease/cirrhosis-->resolved, also now with sepsis/pna, elev la --> Medications have been reviewed --> if the plt count less than 10k, transfuse immediately. If less than 20k and febrile, transfuse --> If less than 50k and bleeding, transfuse. If neurosurgical bleed, transfuse as well --> plt 168->128-->100 --> us abd with cholelithiasis # Sepsis - on fluids and abx --> iamging as needed --> consider abx [email or web address] # Dehydration --> per renal # Choledocholithiasis with acute cholecystitis --> ERCP when stable -> seen by gi # Dvt ppx scds The timing of this note does not necessarily reflect the time of the patient was seen. Greatly appreciate consultation! Subjective Constitutional: Denies: no symptoms, chills, fever, malaise, weakness, other HEENT: Denies: no symptoms, eye pain, blurred vision, tearing, double vision, ear pain, ear discharge, nose pain, nose congestion, throat pain, throat swelling, mouth pain, mouth swelling, other Cardiovascular: Denies: no symptoms, chest pain, edema, irregular heart rate, lightheadedness, palpitations, syncope, other Respiratory: Denies: no symptoms, cough, shortness of breath, SOB with excertion, SOB at rest, sputum, wheezing, other Genitourinary: Denies: no symptoms, burning, discharge, frequency, flank pain, hematuria, incontinence, pain, urgency, other Neurologic/Psychiatric: Denies: no symptoms, anxiety, depressed, emotional problems, headache, numbness, paresthesia, pre-existing deficit, seizure, tingling, tremors, weakness, other Endocrine: Denies: no symptoms, excessive sweating, flushing, intolerance to cold, intolerance to heat, increased hunger, increased thirst, increased urine, unexplained weight gain, unexplained weight loss, other Allergies: Coded Allergies: No Known Allergies (Unverified , 04/21/18) Subjective 01/09 labs reviewed, hgb low, on epo and hd today 01/10 for colo today, no bleeding, meds reviewed, bowel prep+ Objective Objective Current Medications Medications (Trade) Dose Ordered Sig/Jamal Route PRN Reason Start Time Stop Time Status Last Admin Dose Admin Azithromycin (Zithromax) 250 mg DAILY ORAL 01/09/20 09:00 01/16/20 08:59 01/10/20 08:10 Ceftriaxone Sodium 1 gm/ Dextrose 55 ml @ 110 mls/hr Q24H IVPB 01/09/20 08:00 01/16/20 07:59 01/10/20 07:44 Chlorhexidine Gluconate (Jen-Hex 2%) 1 applic DAILY@2000 TOPIC 01/10/20 20:00 04/09/20 19:59 01/10/20 21:24 Dextrose (Dextrose 50%) 25 ml Q30M PRN IV Hypoglycemia 01/08/20 04:15 04/07/20 04:14 01/09/20 12:09 Dextrose (Dextrose 50%) 50 ml Q30M PRN IV Hypoglycemia 01/08/20 04:15 04/07/20 04:14 Dextrose/Sodium Chloride 1,000 ml @ 50 mls/hr Q20H IV 01/10/20 08:00 02/09/20 07:59 01/11/20 05:20 Docusate Sodium (Colace) 100 mg THREE TIMES A DAY ORAL 01/09/20 18:00 02/08/20 17:59 Epoetin Andre (Epoetin Andre-EPBX(NON ESRD)) 6,000 unit THU-THU-THU SUBQ 01/09/20 21:00 04/08/20 20:59 01/09/20 20:58 Heparin Sodium/ Sodium Chloride (Heparin 1000 units/500ml Premix) 1,000 unit ONCE PRN INJ catheter placement 01/09/20 16:15 01/11/20 16:14 Insulin Aspart (NovoLOG) BEFORE MEALS AND HS SUBQ 01/08/20 06:30 04/07/20 06:29 Lidocaine HCl (Xylocaine 1% 30ml) 30 ml ONCE PRN INJ catheter placement 01/09/20 16:15 01/11/20 16:14 Mirtazapine (Remeron) 7.5 mg QHS PRN ORAL insomnia 01/10/20 00:30 04/09/20 00:29 Pantoprazole (Protonix) 40 mg EVERY 12 HOURS IVP 01/10/20 09:00 02/09/20 08:59 01/10/20 21:24 Tamsulosin HCl (Flomax) 0.4 mg BID ORAL 01/10/20 13:00 02/08/20 20:59 01/10/20 17:45 Last 24 Hour Vital Signs Date Time Temp Pulse Resp B/P (MAP) Pulse Ox O2 Delivery O2 Flow Rate FiO2 01/11/20 04:00 Room Air 01/11/20 04:00 97.2 64 20 124/54 (77) 100 01/11/20 04:00 56 01/11/20 00:00 97.8 56 18 111/60 (77) 100 01/11/20 00:00 Room Air 01/10/20 23:36 60 01/10/20 20:00 Room Air 01/10/20 20:00 97.7 59 16 125/76 (92) 100 01/10/20 20:00 60 01/10/20 17:00 Room Air 01/10/20 16:00 98.2 57 20 117/61 (79) 100 01/10/20 16:00 Room Air 01/10/20 16:00 60 01/10/20 12:00 97.7 55 20 141/74 (96) 100 01/10/20 12:00 Room Air 01/10/20 11:50 62 01/10/20 08:00 98.2 60 20 121/69 (86) 100 01/10/20 08:00 Room Air 01/10/20 07:33 58 01/10/20 04:00 Room Air 01/10/20 04:00 97.9 66 20 155/83 (107) 100 01/10/20 03:45 65 01/10/20 00:00 75 01/10/20 00:00 98.2 77 20 155/79 (104) 100 01/10/20 00:00 Room Air 01/09/20 20:00 97.0 56 20 121/60 (80) 100 01/09/20 20:00 Room Air 01/09/20 19:54 80 01/09/20 17:01 56 01/09/20 16:00 Room Air 01/09/20 16:00 96.8 55 20 123/67 (85) 100 01/09/20 12:00 Room Air 01/09/20 12:00 57 01/09/20 12:00 96.6 57 22 119/64 (82) 99 01/09/20 08:00 97.3 59 20 127/75 (92) 100 01/09/20 08:00 60 01/09/20 08:00 Room Air Intake and Output 01/10/20 01/11/20 18:59 06:59 Intake Total 575 ml 250 ml Output Total 700 ml 600 ml Balance -125 ml -350 ml Intake Oral 500 ml 250 ml IV Total 75 ml Output Urine Total 700 ml 600 ml # Bowel Movements 7 6 Labs Test 01/08/20 09:38 01/08/20 10:00 01/08/20 11:28 01/08/20 16:45 POC Whole Blood Glucose 124 MG/DL (74-106) 152 MG/DL (74-106) White Blood Count 7.3 K/UL (4.8-10.8) Red Blood Count 1.95 M/UL (4.70-6.10) Hemoglobin 5.9 G/DL (14.2-18.0) Hematocrit 18.2 % (42.0-52.0) Mean Corpuscular Volume 93 FL (80-99) Mean Corpuscular Hemoglobin 30.1 PG (27.0-31.0) Mean Corpuscular Hemoglobin Concent 32.3 G/DL (32.0-36.0) Red Cell Distribution Width 15.5 % (11.6-14.8) Platelet Count 118 K/UL (150-450) Mean Platelet Volume 7.2 FL (6.5-10.1) Neutrophils (%) (Auto) % (45.0-75.0) Lymphocytes (%) (Auto) % (20.0-45.0) Monocytes (%) (Auto) % (1.0-10.0) Eosinophils (%) (Auto) % (0.0-3.0) Basophils (%) (Auto) % (0.0-2.0) Differential Total Cells Counted 100 Neutrophils % (Manual) 85 % (45-75) Lymphocytes % (Manual) 13 % (20-45) Monocytes % (Manual) 2 % (1-10) Eosinophils % (Manual) 0 % (0-3) Basophils % (Manual) 0 % (0-2) Band Neutrophils 0 % (0-8) Platelet Estimate Decreased Platelet Morphology Normal Anisocytosis 1+ Test 01/08/20 17:15 01/09/20 03:03 01/09/20 03:08 01/09/20 09:00 Ferritin 862 NG/ML (8-388) White Blood Count 9.1 K/UL (4.8-10.8) Red Blood Count 3.07 M/UL (4.70-6.10) Hemoglobin 9.4 G/DL (14.2-18.0) Hematocrit 28.4 % (42.0-52.0) Mean Corpuscular Volume 92 FL (80-99) Mean Corpuscular Hemoglobin 30.6 PG (27.0-31.0) Mean Corpuscular Hemoglobin Concent 33.1 G/DL (32.0-36.0) Red Cell Distribution Width 14.6 % (11.6-14.8) Platelet Count 128 K/UL (150-450) Mean Platelet Volume 7.6 FL (6.5-10.1) Neutrophils (%) (Auto) % (45.0-75.0) Lymphocytes (%) (Auto) % (20.0-45.0) Monocytes (%) (Auto) % (1.0-10.0) Eosinophils (%) (Auto) % (0.0-3.0) Basophils (%) (Auto) % (0.0-2.0) Differential Total Cells Counted 100 Neutrophils % (Manual) 90 % (45-75) Lymphocytes % (Manual) 7 % (20-45) Monocytes % (Manual) 2 % (1-10) Eosinophils % (Manual) 1 % (0-3) Basophils % (Manual) 0 % (0-2) Band Neutrophils 0 % (0-8) Platelet Estimate Decreased Platelet Morphology Normal Anisocytosis 1+ Sodium Level 139 MMOL/L (136-145) Potassium Level 5.9 MMOL/L (3.5-5.1) Chloride Level 111 MMOL/L (98-107) Carbon Dioxide Level 6 MMOL/L (21-32) Anion Gap 22 mmol/L (5-15) Blood Urea Nitrogen 145 mg/dL (7-18) Creatinine 9.6 MG/DL (0.55-1.30) Estimat Glomerular Filtration Rate 5.5 mL/min (>60) Glucose Level 74 MG/DL (74-106) Calcium Level 7.1 MG/DL (8.5-10.1) Phosphorus Level 8.9 MG/DL (2.5-4.9) Magnesium Level 2.8 MG/DL (1.8-2.4) Total Bilirubin 0.4 MG/DL (0.2-1.0) Aspartate Amino Transf (AST/SGOT) 24 U/L (15-37) Alanine Aminotransferase (ALT/SGPT) 29 U/L (12-78) Alkaline Phosphatase 114 U/L (46-116) Total Protein 7.1 G/DL (6.4-8.2) Albumin 2.8 G/DL (3.4-5.0) Globulin 4.3 g/dL Albumin/Globulin Ratio 0.7 (1.0-2.7) Stool Occult Blood Positive (NEGATIVE) Test 01/09/20 11:58 01/09/20 12:55 01/09/20 17:56 01/09/20 20:41 POC Whole Blood Glucose 67 MG/DL (74-106) 102 MG/DL (74-106) 108 MG/DL (74-106) 105 MG/DL (74-106) Test 01/10/20 02:50 01/10/20 04:00 01/10/20 05:35 01/10/20 06:20 Uric Acid 2.9 MG/DL (2.6-7.2) Phosphorus Level 3.3 MG/DL (2.5-4.9) Magnesium Level 2.2 MG/DL (1.8-2.4) Lactate Dehydrogenase 225 U/L (81-234) C-Reactive Protein, Quantitative 10.4 mg/dL (0.00-0.90) Pro-B-Type Natriuretic Peptide 69915 pg/mL (0-125) Triglycerides Level 78 MG/DL (30-150) Cholesterol Level 77 MG/DL (< 200) LDL Cholesterol 27 mg/dL (<100) HDL Cholesterol 41 MG/DL (40-60) Cholesterol/HDL Ratio 1.9 (3.3-4.4) Lipase 575 U/L (73-393) Thyroid Stimulating Hormone (TSH) 4.277 uiU/mL (0.358-3.740) Hepatitis B Surface Antigen Negative (NEGATIVE) Arterial Blood pH 7.525 (7.350-7.450) Arterial Blood Partial Pressure CO2 25.9 mmHg (35.0-45.0) Arterial Blood Partial Pressure O2 112.0 mmHg (75.0-100.0) Arterial Blood HCO3 20.9 mmol/L (22.0-26.0) Arterial Blood Oxygen Saturation 97.2 % (95-100) Arterial Blood Base Excess -1.3 (-2-2) Joe Test Positive White Blood Count 8.7 K/UL (4.8-10.8) Red Blood Count 3.19 M/UL (4.70-6.10) Hemoglobin 9.7 G/DL (14.2-18.0) Hematocrit 27.8 % (42.0-52.0) Mean Corpuscular Volume 87 FL (80-99) Mean Corpuscular Hemoglobin 30.4 PG (27.0-31.0) Mean Corpuscular Hemoglobin Concent 35.0 G/DL (32.0-36.0) Red Cell Distribution Width 14.2 % (11.6-14.8) Platelet Count 100 K/UL (150-450) Mean Platelet Volume 7.4 FL (6.5-10.1) Neutrophils (%) (Auto) % (45.0-75.0) Lymphocytes (%) (Auto) % (20.0-45.0) Monocytes (%) (Auto) % (1.0-10.0) Eosinophils (%) (Auto) % (0.0-3.0) Basophils (%) (Auto) % (0.0-2.0) Sodium Level 135 MMOL/L (136-145) Potassium Level 2.8 MMOL/L (3.5-5.1) Chloride Level 101 MMOL/L (98-107) Carbon Dioxide Level 23 MMOL/L (21-32) Anion Gap 11 mmol/L (5-15) Blood Urea Nitrogen 55 mg/dL (7-18) Creatinine 4.7 MG/DL (0.55-1.30) Estimat Glomerular Filtration Rate 12.6 mL/min (>60) Glucose Level 114 MG/DL (74-106) Hemoglobin A1c 5.4 % (4.3-6.0) Calcium Level 7.3 MG/DL (8.5-10.1) Total Bilirubin 0.5 MG/DL (0.2-1.0) Aspartate Amino Transf (AST/SGOT) 16 U/L (15-37) Alanine Aminotransferase (ALT/SGPT) 12 U/L (12-78) Alkaline Phosphatase 100 U/L (46-116) Total Protein 5.5 G/DL (6.4-8.2) Albumin 2.1 G/DL (3.4-5.0) Globulin 3.4 g/dL Albumin/Globulin Ratio 0.6 (1.0-2.7) POC Whole Blood Glucose 111 MG/DL (74-106) Test 01/10/20 08:00 01/10/20 09:29 01/10/20 11:50 01/10/20 16:22 Sodium Level 135 MMOL/L (136-145) Potassium Level 2.9 MMOL/L (3.5-5.1) Chloride Level 101 MMOL/L (98-107) Carbon Dioxide Level 25 MMOL/L (21-32) Anion Gap 9 mmol/L (5-15) Blood Urea Nitrogen 55 mg/dL (7-18) Creatinine 4.8 MG/DL (0.55-1.30) Estimat Glomerular Filtration Rate 12.3 mL/min (>60) Glucose Level 105 MG/DL (74-106) Calcium Level 7.3 MG/DL (8.5-10.1) POC Whole Blood Glucose 90 MG/DL (74-106) 96 MG/DL (74-106) Test 01/10/20 21:28 01/11/20 03:56 01/11/20 05:57 POC Whole Blood Glucose 89 MG/DL (74-106) White Blood Count 7.9 K/UL (4.8-10.8) Red Blood Count 2.91 M/UL (4.70-6.10) Hemoglobin 8.9 G/DL (14.2-18.0) Hematocrit 25.7 % (42.0-52.0) Mean Corpuscular Volume 88 FL (80-99) Mean Corpuscular Hemoglobin 30.5 PG (27.0-31.0) Mean Corpuscular Hemoglobin Concent 34.5 G/DL (32.0-36.0) Red Cell Distribution Width 14.1 % (11.6-14.8) Platelet Count 102 K/UL (150-450) Mean Platelet Volume 7.5 FL (6.5-10.1) Neutrophils (%) (Auto) 77.3 % (45.0-75.0) Lymphocytes (%) (Auto) 16.0 % (20.0-45.0) Monocytes (%) (Auto) 5.9 % (1.0-10.0) Eosinophils (%) (Auto) 0.3 % (0.0-3.0) Basophils (%) (Auto) 0.5 % (0.0-2.0) Sodium Level 135 MMOL/L (136-145) Potassium Level 3.4 MMOL/L (3.5-5.1) Chloride Level 102 MMOL/L (98-107) Carbon Dioxide Level 21 MMOL/L (21-32) Anion Gap 12 mmol/L (5-15) Blood Urea Nitrogen 61 mg/dL (7-18) Creatinine 5.5 MG/DL (0.55-1.30) Estimat Glomerular Filtration Rate 10.5 mL/min (>60) Glucose Level 87 MG/DL (74-106) Uric Acid 3.6 MG/DL (2.6-7.2) Calcium Level 7.2 MG/DL (8.5-10.1) Phosphorus Level 5.5 MG/DL (2.5-4.9) Magnesium Level 2.1 MG/DL (1.8-2.4) Total Bilirubin 0.5 MG/DL (0.2-1.0) Aspartate Amino Transf (AST/SGOT) 18 U/L (15-37) Alanine Aminotransferase (ALT/SGPT) 14 U/L (12-78) Alkaline Phosphatase 90 U/L (46-116) C-Reactive Protein, Quantitative 11.3 mg/dL (0.00-0.90) Total Protein 5.5 G/DL (6.4-8.2) Albumin 2.1 G/DL (3.4-5.0) Globulin 3.4 g/dL Albumin/Globulin Ratio 0.6 (1.0-2.7) Height (Feet): 5 Height (Inches): 4.00 Weight (Pounds): 99 Objective Physical Exam Vitals: reviewed General: GCS 15, thin, other - Cold, Chronically Ill - Cachectic Heent: dry mucus membranes, full range of motion, supple, no meningismus Respiratory: chest non-tender, lungs clear, normal breath sounds Cardiovascular: bradycardia, 2+ radial (R) Gastrointestinal: other - Spider habitus, decreased bowel sound Musculoskeletal: back normal, normal range of motion, no calf tenderness Neurologic: oriented - x 2 Psychiatric: mood/affect normal Skin: pallor - Sallow and cold Guero Hernandez MD Jan 11, 2020 06:17
[2020-01-11] MEDS: NovoLOG Insulin Flexpen SUBQ SCH ×4 (06:25→21:24)
--- NOTE | 2020-01-11 06:37 | NUR ---
NURSE NOTES: New 20 gauge IV inserted on right forearm running D5 NS @ 50CC. New 24 gauge IV inserted on left hand. GI checklist completed and pt had BM x3. In stable condition.
--- NOTE | 2020-01-11 07:00 | NUR ---
NURSE NOTES: Left message for Dr. Berrios in regards to low potassium levels. Awaiting call back for further orders.
--- NOTE | 2020-01-11 07:35 | NUR ---
NURSE NOTES:Handoff received from AMARILIS Antoine. Patient received awake and alert and resting in bed, patient is able to make needs known. Patient is on room air, saturating at 100% with no signs of distress noted. nurse monitoring on with HR of 53 sinus estefani. Patient is currently NPO for procedure today, bowel prep is done and PM RN stated patient had 3 clear bowel movements. Patient has herndon patent and draining to gravity. Patient has optifoam covering sacrum for pressure injury. IV sites are clean dry and intact with the R forearm running D5NS@50ML/HR. Patient also has Right tunneled IJ, with reinforced dressing for some noted bleeding PM shift, reinforced dressing is clean dry and intact. patient is on fall and aspiration precautions, bed in the low and locked position with call light within reach, will follow plan of care.
--- NOTE | 2020-01-11 07:49 | NUR ---
NURSE HAND-OFF REPORT: Important Events on Shift: Bowel Prep for colonoscopy complete Patient Status: Stable Diet: NPO Pending Orders: N Pending Results/Labs: N Pending MD notification: Y Latest Vital Signs: Temperature 97.2 , Pulse 56 , B/P 124 /54 , Respiratory Rate 20 , O2 SAT 100 , Room Air, O2 Flow Rate . Vital Sign Comment: WNL EKG Rhythm: Sinus Bradycardia Rhythm change?: N MD Notified?: - MD Response: Latest Mclean Fall Score: 85 Fall Risk: High Risk Safety Measures: Call light Within Reach, Bed Alarm Zone 2, Side Rails Side Rails x3, Bed position Low and Locked. Fall Precautions: Yellow Socks Yellow Gown Door Sign Patient Fall Education Report given to AMARILIS Metcalf.
[2020-01-11] MEDS: Pantoprazole Inj IVP SCH ×2 (08:22→21:22)
[2020-01-11] MEDS: cefTRIAXone 1 GM in D5W 55 ML IVPB SCH (08:22)
--- NOTE | 2020-01-11 08:46 | Pre-Procedure Note/Attestation ---
Pre-Procedure Note/Attestation Complete Prior to Procedure Planned Procedure: not applicable Procedure Narrative: esophagogastroduodenoscopy and colonoscopy Indications for Procedure Pre-Operative Diagnosis: gib Attestation I attest that I discussed the nature of the procedure; its benefits; risks and complications; and alternatives (and the risks and benefits of such alternatives), prior to the procedure, with the patient (or the patient's legal merchandising representative). I attest that, if there was a reasonable possibility of needing a blood transfusion, the patient (or the patient's legal merchandising representative) was given the [facility] standardized written summary, pursuant to the [place] Blood Safety Act ([place] Health and Safety Code # 1645, as amended). I attest that I re-evaluated the patient just prior to the surgery and that there has been no change in the patient's H&P, except as documented below: León Lambert MD Jan 11, 2020 08:46
[2020-01-11] MEDS: Docusate 100mg cap ORAL SCH ×3 (09:00→17:00)
--- NOTE | 2020-01-11 09:21 | General Progress Note ---
Subjective Allergies: Coded Allergies: No Known Allergies (Unverified , 04/21/18) Subjective bed bound ,poor po intake, sob doing better had hd Objective Last 24 Hour Vital Signs Date Time Temp Pulse Resp B/P (MAP) Pulse Ox O2 Delivery O2 Flow Rate FiO2 01/11/20 08:00 Room Air 01/11/20 04:00 Room Air 01/11/20 04:00 97.2 64 20 124/54 (77) 100 01/11/20 04:00 56 01/11/20 00:00 97.8 56 18 111/60 (77) 100 01/11/20 00:00 Room Air 01/10/20 23:36 60 01/10/20 20:00 Room Air 01/10/20 20:00 97.7 59 16 125/76 (92) 100 01/10/20 20:00 60 01/10/20 17:00 Room Air 01/10/20 16:00 98.2 57 20 117/61 (79) 100 01/10/20 16:00 Room Air 01/10/20 16:00 60 01/10/20 12:00 97.7 55 20 141/74 (96) 100 01/10/20 12:00 Room Air 01/10/20 11:50 62 Intake and Output 01/10/20 01/11/20 19:00 07:00 Intake Total 500 ml 283.3 ml Output Total 700 ml 600 ml Balance -200 ml -316.7 ml Intake Oral 500 ml 250 ml IV Total 33.3 ml Output Urine Total 700 ml 600 ml # Bowel Movements 7 6 Laboratory Tests 01/10/20 09:29: POC Whole Blood Glucose 90 01/10/20 11:50: POC Whole Blood Glucose 96 01/10/20 16:22: POC Whole Blood Glucose [Pending] 01/10/20 21:28: POC Whole Blood Glucose 89 01/11/20 03:56: White Blood Count 7.9, Red Blood Count 2.91L, Hemoglobin 8.9L, Hematocrit 25.7L, Mean Corpuscular Volume 88, Mean Corpuscular Hemoglobin 30.5, Mean Corpuscular Hemoglobin Concent 34.5, Red Cell Distribution Width 14.1, Platelet Count 102L, Mean Platelet Volume 7.5, Neutrophils (%) (Auto) 77.3H, Lymphocytes (%) (Auto) 16.0L, Monocytes (%) (Auto) 5.9, Eosinophils (%) (Auto) 0.3, Basophils (%) (Auto) 0.5, Sodium Level 135L, Potassium Level 3.4L, Chloride Level 102, Carbon Dioxide Level 21, Anion Gap 12, Blood Urea Nitrogen 61H, Creatinine 5.5H, Estimat Glomerular Filtration Rate 10.5, Glucose Level 87, Uric Acid 3.6, Calcium Level 7.2L, Phosphorus Level 5.5H, Magnesium Level 2.1, Total Bilirubin 0.5, Aspartate Amino Transf (AST/SGOT) 18, Alanine Aminotransferase (ALT/SGPT) 14, Alkaline Phosphatase 90, C-Reactive Protein, Quantitative 11.3H, Total Protein 5.5L, Albumin 2.1L, Globulin 3.4, Albumin/Globulin Ratio 0.6L 01/11/20 05:57: POC Whole Blood Glucose 83 Height (Feet): 5 Height (Inches): 4.00 Weight (Pounds): 99 General Appearance: alert EENT: PERRL/EOMI Neck: non-tender, supple Cardiovascular: regular rhythm Abdomen: non tender Neurologic: other Skin: warm/dry Assessment/Plan Assessment/Plan: ac kidney failure improving 1 anemia r/o gi bleeding hh better 2 severe malnutrition 3 wt loss 4 fever r/o sepsis 5dm type 2 transfuse 2 more u of prbc gi w/u today cont ss, accue check pt/ot Kamron Dong MD Jan 11, 2020 09:21
--- NOTE | 2020-01-11 10:12 | Pulmonology Progress Note ---
Subjective ROS Limited/Unobtainable: No Interval Events: None new Constitutional: Reports: no symptoms HEENT: Repors: no symptoms Respiratory: Reports: no symptoms Cardiovascular: Reports: no symptoms Gastrointestinal/Abdominal: Reports: no symptoms Genitourinary: Reports: no symptoms Allergies: Coded Allergies: No Known Allergies (Unverified , 04/21/18) Objective Last 24 Hour Vital Signs Date Time Temp Pulse Resp B/P (MAP) Pulse Ox O2 Delivery O2 Flow Rate FiO2 01/11/20 08:00 Room Air 01/11/20 08:00 54 01/11/20 04:00 Room Air 01/11/20 04:00 97.2 64 20 124/54 (77) 100 01/11/20 04:00 56 01/11/20 00:00 97.8 56 18 111/60 (77) 100 01/11/20 00:00 Room Air 01/10/20 23:36 60 01/10/20 20:00 Room Air 01/10/20 20:00 97.7 59 16 125/76 (92) 100 01/10/20 20:00 60 01/10/20 17:00 Room Air 01/10/20 16:00 98.2 57 20 117/61 (79) 100 01/10/20 16:00 Room Air 01/10/20 16:00 60 01/10/20 12:00 97.7 55 20 141/74 (96) 100 01/10/20 12:00 Room Air 01/10/20 11:50 62 Intake and Output 01/10/20 01/11/20 19:00 07:00 Intake Total 500 ml 283.3 ml Output Total 700 ml 600 ml Balance -200 ml -316.7 ml Intake Oral 500 ml 250 ml IV Total 33.3 ml Output Urine Total 700 ml 600 ml # Bowel Movements 7 6 General Appearance: no acute distress HEENT: normocephalic Respiratory: chest wall non-tender, lungs clear Cardiovascular: normal peripheral pulses Abdomen: normal bowel sounds Microbiology Date/Time Source Procedure Growth Status 01/08/20 16:45 Stool Stool Culture - Preliminary NORMAL FECAL IQRA. Resulted 01/08/20 16:45 Stool Clostridium difficile Toxin Assay - Final Complete Laboratory Tests 01/10/20 11:50: POC Whole Blood Glucose 96 01/10/20 16:22: POC Whole Blood Glucose [Pending] 01/10/20 21:28: POC Whole Blood Glucose 89 01/11/20 03:56: White Blood Count 7.9, Red Blood Count 2.91L, Hemoglobin 8.9L, Hematocrit 25.7L, Mean Corpuscular Volume 88, Mean Corpuscular Hemoglobin 30.5, Mean Corpuscular Hemoglobin Concent 34.5, Red Cell Distribution Width 14.1, Platelet Count 102L, Mean Platelet Volume 7.5, Neutrophils (%) (Auto) 77.3H, Lymphocytes (%) (Auto) 16.0L, Monocytes (%) (Auto) 5.9, Eosinophils (%) (Auto) 0.3, Basophils (%) (Auto) 0.5, Sodium Level 135L, Potassium Level 3.4L, Chloride Level 102, Carbon Dioxide Level 21, Anion Gap 12, Blood Urea Nitrogen 61H, Creatinine 5.5H, Estimat Glomerular Filtration Rate 10.5, Glucose Level 87, Uric Acid 3.6, Calcium Level 7.2L, Phosphorus Level 5.5H, Magnesium Level 2.1, Total Bilirubin 0.5, Aspartate Amino Transf (AST/SGOT) 18, Alanine Aminotransferase (ALT/SGPT) 14, Alkaline Phosphatase 90, C-Reactive Protein, Quantitative 11.3H, Total Protein 5.5L, Albumin 2.1L, Globulin 3.4, Albumin/Globulin Ratio 0.6L 01/11/20 05:57: POC Whole Blood Glucose 83 Current Medications Medications (Trade) Dose Ordered Sig/Jamal Route PRN Reason Start Time Stop Time Status Last Admin Dose Admin Azithromycin (Zithromax) 250 mg DAILY ORAL 01/09/20 09:00 01/16/20 08:59 01/10/20 08:10 Ceftriaxone Sodium 1 gm/ Dextrose 55 ml @ 110 mls/hr Q24H IVPB 01/09/20 08:00 01/16/20 07:59 01/11/20 08:22 Chlorhexidine Gluconate (Jen-Hex 2%) 1 applic DAILY@2000 TOPIC 01/10/20 20:00 04/09/20 19:59 01/10/20 21:24 Dextrose (Dextrose 50%) 25 ml Q30M PRN IV Hypoglycemia 01/08/20 04:15 04/07/20 04:14 01/09/20 12:09 Dextrose (Dextrose 50%) 50 ml Q30M PRN IV Hypoglycemia 01/08/20 04:15 04/07/20 04:14 Dextrose/Sodium Chloride 1,000 ml @ 50 mls/hr Q20H IV 01/10/20 08:00 02/09/20 07:59 01/11/20 05:20 Docusate Sodium (Colace) 100 mg THREE TIMES A DAY ORAL 01/09/20 18:00 02/08/20 17:59 Epoetin Andre (Epoetin Andre-EPBX(NON ESRD)) 6,000 unit THU-THU-THU SUBQ 01/09/20 21:00 04/08/20 20:59 01/09/20 20:58 Heparin Sodium/ Sodium Chloride (Heparin 1000 units/500ml Premix) 1,000 unit ONCE PRN INJ catheter placement 01/09/20 16:15 01/11/20 16:14 Insulin Aspart (NovoLOG) BEFORE MEALS AND HS SUBQ 01/08/20 06:30 04/07/20 06:29 Lidocaine HCl (Xylocaine 1% 30ml) 30 ml ONCE PRN INJ catheter placement 01/09/20 16:15 01/11/20 16:14 Mirtazapine (Remeron) 7.5 mg QHS PRN ORAL insomnia 01/10/20 00:30 04/09/20 00:29 Pantoprazole (Protonix) 40 mg EVERY 12 HOURS IVP 01/10/20 09:00 02/09/20 08:59 01/11/20 08:22 Tamsulosin HCl (Flomax) 0.4 mg BID ORAL 01/10/20 13:00 02/08/20 20:59 01/10/20 17:45 Assessment/Plan Assessment/Plan ASSESSMENT AND PLAN: 1. Sinus bradycardia. 2. Profound anemia, status post blood transfusion. 3. Mild pulmonary hypertension 4. Probable pneumonia Agree with broad-spectrum antibiotics. saturating well on RA now S/p hemodialysis Nataliya Mclaughlin Omar Syed MD Jan 11, 2020 10:11
--- NOTE | 2020-01-11 11:28 | Nephrology Progress Note ---
Assessment/Plan Problem List: (1) JONA (acute kidney injury) (2) Hyperkalemia (3) Anemia (4) Metabolic acidosis (5) Ureter obstruction (6) Failure to thrive Assessment Renal failure acute, superimposed on chronic Hyperkalemia Acidosis Presented with severe anemia on admission, transfused 3 units packed RBCs since admission. History of hypertension History of diabetes mellitus 01/09/2020----PATIENT NEED EMERGENCY LIFE SAVING DIALYSIS Plan January 10: Patient was dialyzed January 08. Is undergoing GI evaluation. Labs reviewed. Due for dialysis again tomorrow. Urological evaluation for bladder retention pending. Insertion of temporary non tunneled dialysis catheter followed by dialysis to correct acidosis hyperkalemia, done yesterday Continue per consultants Monitor electrolytes and renal parameters Hemodialysis as needed Urology evaluation for urinary retention Per orders Subjective ROS Limited/Unobtainable: No Constitutional: Reports: malaise Objective Objective Last 24 Hour Vital Signs Date Time Temp Pulse Resp B/P (MAP) Pulse Ox O2 Delivery O2 Flow Rate FiO2 01/11/20 08:00 Room Air 01/11/20 08:00 54 01/11/20 04:00 Room Air 01/11/20 04:00 97.2 64 20 124/54 (77) 100 01/11/20 04:00 56 01/11/20 00:00 97.8 56 18 111/60 (77) 100 01/11/20 00:00 Room Air 01/10/20 23:36 60 01/10/20 20:00 Room Air 01/10/20 20:00 97.7 59 16 125/76 (92) 100 01/10/20 20:00 60 01/10/20 17:00 Room Air 01/10/20 16:00 98.2 57 20 117/61 (79) 100 01/10/20 16:00 Room Air 01/10/20 16:00 60 01/10/20 12:00 97.7 55 20 141/74 (96) 100 01/10/20 12:00 Room Air 01/10/20 11:50 62 Intake and Output 01/10/20 01/11/20 19:00 07:00 Intake Total 500 ml 283.3 ml Output Total 700 ml 600 ml Balance -200 ml -316.7 ml Intake Oral 500 ml 250 ml IV Total 33.3 ml Output Urine Total 700 ml 600 ml # Bowel Movements 7 6 Laboratory Tests 01/10/20 11:50: POC Whole Blood Glucose 96 01/10/20 16:22: POC Whole Blood Glucose [Pending] 01/10/20 21:28: POC Whole Blood Glucose 89 01/11/20 03:56: White Blood Count 7.9, Red Blood Count 2.91L, Hemoglobin 8.9L, Hematocrit 25.7L, Mean Corpuscular Volume 88, Mean Corpuscular Hemoglobin 30.5, Mean Corpuscular Hemoglobin Concent 34.5, Red Cell Distribution Width 14.1, Platelet Count 102L, Mean Platelet Volume 7.5, Neutrophils (%) (Auto) 77.3H, Lymphocytes (%) (Auto) 1 6.0L, Monocytes (%) (Auto) 5.9, Eosinophils (%) (Auto) 0.3, Basophils (%) (Auto) 0.5, Sodium Level 135L, Potassium Level 3.4L, Chloride Level 102, Carbon Dioxide Level 21, Anion Gap 12, Blood Urea Nitrogen 61H, Creatinine 5.5H, Estimat Glomerular Filtration Rate 10.5, Glucose Level 87, Uric Acid 3.6, Calcium Level 7.2L, Phosphorus Level 5.5H, Magnesium Level 2.1, Total Bilirubin 0.5, Aspartate Amino Transf (AST/SGOT) 18, Alanine Aminotransferase (ALT/SGPT) 14, Alkaline Phosphatase 90, C-Reactive Protein, Quantitative 11.3H, Total Protein 5.5L, Albumin 2.1L, Globulin 3.4, Albumin/Globulin Ratio 0.6L 01/11/20 05:57: POC Whole Blood Glucose 83 Height (Feet): 5 Height (Inches): 4.00 Weight (Pounds): 99 General Appearance: no apparent distress Cardiovascular: normal rate Respiratory/Chest: decreased breath sounds Objective No change Orlin Berrios MD Jan 11, 2020 11:28
[2020-01-11] MEDS ORDERED: NS 500ML IVPB ONE (11:55)
[2020-01-11] MEDS ORDERED: Lidocaine 1% MPF 10mg/ml 5ml ONE (12:00)
--- NOTE | 2020-01-11 12:20 | Endoscopy Procedure Note ---
Endoscopy Procedure Note General Indication for Procedure: anemia Procedures Performed: EGD, colonoscopy Operative Findings/Diagnosis: gastritis, diverticulosis Specimen: yes Pt Tolerated Procedure Well: Yes Estimated Blood Loss: none Anesthesia Anesthesiologist: faraz Anesthesia: MAC Inserted Devices Implant(s) used?: No Quality Quality of Bowel Preparation: Good Did scope reach the cecum?: Yes Was there any complications?: No GI Core Measures 50 yrs or older w/o bx or poly: Not Applicable 10yrs. F/U recommended: Not Applicable León Lambert MD Jan 11, 2020 12:20
--- NOTE | 2020-01-11 12:33 | Immediate Post-Op Evaluation ---
Immediate Post-Op Evalulation Immediate Post-Op Evalulation Procedure: EGD/Colonoscopy Date of Evaluation: Jan 11, 2020 Time of Evaluation: 12:32 IV Fluids: 200 Blood Products: 0 Blood Pressure Systolic: 133 Blood Pressure Diastolic: 73 Pulse Rate: 52 Respiratory Rate: 14 O2 Sat by Pulse Oximetry: 100 Temperature (Fahrenheit): 97.0 Nausea: No Vomiting: No Complications none Patient Status: awake, reacts, patent Hydration Status: adequate Drug: none Dara Leach CRNA Jan 11, 2020 12:33
--- NOTE | 2020-01-11 12:35 | Anethesia Preoperative Eval ---
Anesthesia Pre-op PMH/ROS General Date of Evaluation: Jan 11, 2020 Time of Evaluation: 11:52 Anesthesiologist: freda ASA Score: ASA 4 Mallampati Score Class I : Soft palate, uvula, fauces, pillars visible Class II: Soft palate, uvula, fauces visible Class III: Soft palate, base of uvula visible Class IV: Only hard plate visible Mallampati Classification: Class II Surgeon: tomasa Diagnosis: anemia Surgical Procedure: EGC /Colonoscopy Anesthesia History: none Family History: no anesthesia problems Allergies: Coded Allergies: No Known Allergies (Unverified , 04/21/18) Medications: see eMAR Patient NPO?: Yes NPO Date: Jan 11, 2020 NPO Time: 00:01 Past Medical History Cardiovascular: Reports: HTN, CAD Pulmonary: Denies: asthma, COPD, GALINA, other Gastrointestinal/Genitourinary: Reports: GERD, CRI, ESRD; Denies: other Neurologic/Psychiatric: Denies: dementia, CVA, depression/anxiety, TIA, other Endocrine: Denies: DM, hypothyroidism, steroids, other HEENT: Denies: cataract (L), cataract (R), glaucoma, NINILCHIK (L), NINILCHIK (R), other Hematology/Immune: Reports: anemia; Denies: DVT, bleeding disorder, other Musculoskeletal/Integumentary: Denies: OA, RA, DJD, DDD, edema, other Other: other - cachexia Anesthesia Pre-op Phys. Exam Physician Exam Last Vital Signs Date Time Temp Pulse Resp B/P (MAP) Pulse Ox O2 Delivery O2 Flow Rate FiO2 01/11/20 08:00 Room Air 01/11/20 08:00 54 01/11/20 04:00 97.2 20 124/54 (77) 100 Constitutional: NAD Neurologic: CN 2-12 intact Cardiovascular: RRR Respiratory: CTA Gastrointestinal: S/NT/ND Airway Exam Mallampati Classification 2 Mallampati Score: Class II MO: full ROM: full Teeth: missing Dentures: no upper, no lower Anesthesia Pre-op A/P Labs Hematology Test 01/11/20 03:56 White Blood Count 7.9 K/UL (4.8-10.8) Red Blood Count 2.91 M/UL (4.70-6.10) L Hemoglobin 8.9 G/DL (14.2-18.0) L Hematocrit 25.7 % (42.0-52.0) L Mean Corpuscular Volume 88 FL (80-99) Mean Corpuscular Hemoglobin 30.5 PG (27.0-31.0) Mean Corpuscular Hemoglobin Concent 34.5 G/DL (32.0-36.0) Red Cell Distribution Width 14.1 % (11.6-14.8) Platelet Count 102 K/UL (150-450) L Mean Platelet Volume 7.5 FL (6.5-10.1) Neutrophils (%) (Auto) 77.3 % (45.0-75.0) H Lymphocytes (%) (Auto) 16.0 % (20.0-45.0) L Monocytes (%) (Auto) 5.9 % (1.0-10.0) Eosinophils (%) (Auto) 0.3 % (0.0-3.0) Basophils (%) (Auto) 0.5 % (0.0-2.0) Chemistry Test 01/10/20 16:22 01/10/20 21:28 01/11/20 03:56 01/11/20 05:57 POC Whole Blood Glucose Pending 89 MG/DL (74-106) 83 MG/DL (74-106) Sodium Level 135 MMOL/L (136-145) L Potassium Level 3.4 MMOL/L (3.5-5.1) L Chloride Level 102 MMOL/L (98-107) Carbon Dioxide Level 21 MMOL/L (21-32) Anion Gap 12 mmol/L (5-15) Blood Urea Nitrogen 61 mg/dL (7-18) H Creatinine 5.5 MG/DL (0.55-1.30) H Estimat Glomerular Filtration Rate 10.5 mL/min (>60) Glucose Level 87 MG/DL (74-106) Uric Acid 3.6 MG/DL (2.6-7.2) Calcium Level 7.2 MG/DL (8.5-10.1) L Phosphorus Level 5.5 MG/DL (2.5-4.9) H Magnesium Level 2.1 MG/DL (1.8-2.4) Total Bilirubin 0.5 MG/DL (0.2-1.0) Aspartate Amino Transf (AST/SGOT) 18 U/L (15-37) Alanine Aminotransferase (ALT/SGPT) 14 U/L (12-78) Alkaline Phosphatase 90 U/L (46-116) C-Reactive Protein, Quantitative 11.3 mg/dL (0.00-0.90) H Total Protein 5.5 G/DL (6.4-8.2) L Albumin 2.1 G/DL (3.4-5.0) L Globulin 3.4 g/dL Albumin/Globulin Ratio 0.6 (1.0-2.7) L Studies Pre-op Studies: EKG - SR/SB Risk Assessment & Plan Plan: MAC Status Change Before Surgery: No Pre-Antibiotics Drug: none Dara Leach CRNA Jan 11, 2020 12:35
--- NOTE | 2020-01-11 12:36 | 48 Hour Post Anesthesia Eval ---
Post Anesthesia Evaluation Procedure: EGD/Colonoscopy Date of Evaluation: Jan 11, 2020 Time of Evaluation: 12:36 Blood Pressure Systolic: 129 0: 76 Pulse Rate: 53 Respiratory Rate: 14 O2 Sat by Pulse Oximetry: 98 Airway: patent Nausea: No Vomiting: No Hydration Status: adequate Cardiopulmonary Status: stable Mental Status/LOC: patient returned to baseline Follow-up Care/Observations: na Post-Anesthesia Complications: none Follow-up care needed: N/A Dara Leach CRNA Jan 11, 2020 12:36
--- NOTE | 2020-01-11 13:32 | NUR ---
NURSE NOTES:Patient given orange juice as blood sugar 68, will re-check blood sugar in 15 minutes. Patient asymptomatic.
--- NOTE | 2020-01-11 14:00 | NUR ---
NURSE NOTES:Patient's sugar re-checked and is now 95 after patient consumed orange juice.
--- NOTE | 2020-01-11 14:53 | Diagnostic Imaging Report ---
Indication: Reason For Exam: ABD PAIN Technique: Coronal and axial single shot fast spin-echo breath-hold, axial T2 FRFSE, 2-D thick slab MRCP, AXIAL 2-D FIESTA fat saturated, axial 3-D dual echo breath-hold, revealed 3-D MRCP images were obtained of the abdomen. MIP reconstructions were generated of the bile ducts. Patient unable to hold breath. Due to signal starvation, LAVA FLEX sequences could not be obtained Comparison: 04/21/2018 Findings: Exam is limited due to the lack of LAVA FLEX sequences as well as motion artifact. Gallbladder is filled with gallstones. The common bile duct is also filled with gallstones. Common bile duct is dilated, measuring 11 mm in diameter. There is mild central intrahepatic biliary ductal dilatation. No obstructing ampullary mass demonstrated. Considerable signal dropout on the fat saturated images in the liver indicates fatty liver. The pancreas, spleen, adrenals are unremarkable. The kidneys demonstrate bilateral cysts. No pelvic mass or adenopathy. Free intraperitoneal fluid is demonstrated. This is mostly seen surrounding the liver. Impression: Somewhat limited exam, as described Cholelithiasis. There is also choledocholithiasis and biliary ductal dilatation. Although choledocholithiasis was reported on the prior study, calculi are much more extensive within the common bile duct on the current exam Ascites fluid, increased in extent from previous study Bilateral renal cyst Bilateral pleural effusions
--- NOTE | 2020-01-11 14:57 | NUR ---
CASE MANAGEMENT:REVIEW SI;AC KIDNEY FAILURE. SEPSIS. PULMONARY HTN. 97.0 51 20 124/54 100% 3L NC H/H 8.9/25.7 PLT 102 NA 135 K+ 3.4 BUN 61 CR 5.5 CA 7.2 ALB 2.1 IS;EGD & COLONOSCOPY PROTONIX IV IVF D5/NS @ 50 ML/HR HEPARIN SUBQ ZITHROMAX PO ROCEPHIN IV MED SURG STATUS DCP;FROM HOME
--- NOTE | 2020-01-11 15:00 | Procedure Note ---
DATE OF PROCEDURE: 01/11/2020 SURGEON: León Lambert MD. REFERRING PHYSICIAN: Kamron Allan MD. PROCEDURE: Upper endoscopy with biopsy and colonoscopy. ANESTHESIA: Per DATA WAREHOUSING SPECIALIST, Dara Tarrillion. INSTRUMENT: Olympus adult flexible upper endoscope and colonoscope. INDICATIONS: Anemia, stool OB positive. REASON FOR PROCEDURE: The procedure, risks, benefits, and possible consequences, including hemorrhage, aspiration, perforation and infection, and alternative treatments, were explained to the patient/legal guardian by Dr. León Lambert and the patient/legal guardian understood and accepted these risks. PROCEDURE IN DETAIL: After informed consent was obtained and the patient was adequately sedated, Olympus upper endoscope was advanced from mouth into the second portion of the duodenum. Retroflexion was performed in the stomach. The patient had one shallow duodenal ulceration. Small less than a centimeter. In the stomach, there was diffuse gastritis. Random biopsy from antrum was obtained to rule out H. pylori infection. Otherwise, the rest of upper endoscopic examination grossly within normal limits. At this time, the upper endoscope was retrieved and the patient was turned over for colonoscopy. First, rectal exam was performed, which showed incompetent rectal tone, external and internal hemorrhoids. Then, the scope was advanced from the rectum into the cecum documented by appendiceal orifice, ileocecal valve, and right upper quadrant palpation. Quality of prep was good. The patient has one large diverticula in the cecum. No other the diverticula was seen throughout the colon. No obvious mass, polyp, or any source of bleeding. Retroflexion of rectum showed evidence of large internal hemorrhoids. SUMMARY OF FINDINGS: 1. Gastritis, status post biopsy. 2. Shallow duodenal ulceration. 3. Large internal and external hemorrhoids. 4. Diverticula in the cecum. RECOMMENDATIONS: Follow pathology and treat accordingly. I want to thank Dr. Allan for this kind referral. León Lambert M.D. DR: ROSARIO JOB#: [id number] CC:
[2020-01-11] MEDS: Tamsulosin 0.4mg cap ORAL SCH ×2 (15:49→17:00)
[2020-01-11] MEDS: Azithromycin 250mg tab ORAL SCH (15:49)
--- NOTE | 2020-01-11 17:50 | NUR ---
NURSE NOTES:Patient transferred to [facility] and report given to AMARILIS Mendes. Belongings list signed and accounted for. Endorsed plan of care.
--- NOTE | 2020-01-11 18:00 | NUR ---
NURSE NOTES: Received patient into room 410 bed 2 from [facility],patient alert and oriented,patient has herndon catheter in place with small amount of yellow urine.Patient has a I/J dialysis catheter to the right neck.Per report from [facility] ,patient will receive Dialysis on 01/11 20 Dialysis center was notified by previous RN FELIPE .Patient has two iv.one in the left hand,the other in the right arm.Patient eating dinner. Bed alarm on,call light within reach.
--- NOTE | 2020-01-11 18:00 | NUR ---
NURSE NOTES: Patient schedule for ERCP,report given from [facility],patient did not sign consent,patient wants to talk to Doctor before signing.[facility] left message for DR Lambert .
--- NOTE | 2020-01-11 19:55 | NUR ---
NURSE NOTES: Called [facility] and verified that call was placed today for patient schedule for Dialysis on 01/12/20
--- NOTE | 2020-01-11 19:56 | NUR ---
NURSE HAND-OFF: Sumaya Important Events on Shift:[]Plan procedure on 01/12/20 Patient Status: [] Diet: [] Pending Orders: [] Pending Results/Labs:[] Pending MD notification:[] Latest Vital Signs: Temperature 97.0 , Pulse 86 , B/P 124 /71 , Respiratory Rate 18 , O2 SAT 98 , Room Air, O2 Flow Rate 3 . Vital Sign Comment: [] Latest Mclean Fall Score: 85 Fall Risk: High Risk Safety Measures: Call light Within Reach, Bed Alarm Zone 2, Side Rails Side Rails x3, Bed position Low and Locked. Fall Precautions: Yellow Socks Yellow Gown Door Sign y Patient Fall Education Bed alarm Report given to [].
[2020-01-11] MEDS: Epoetin Alfa-EPBX(ESRD on dialysis)3000 units/ml vial SUBQ SCH (21:22)
[2020-01-11] MEDS: Dyna-Hex 2% Top Sol 2oz TOPIC SCH (22:00)
--- NOTE | 2020-01-11 23:14 | NUR ---
NURSE NOTES: Right IJ dialysis access noted to have moderate bleeding. Dressing changed and pressure dressing applied with charge nurse. Dr Allan aware.
[2020-01-12] VITALS (13 sets, daily range): BP systolic 68–148; BP diastolic 39–80
--- NOTE | 2020-01-12 02:34 | NUR ---
NURSE NOTES: Sacral optifoam dressing changed. Patient has had frequent bowel movements from prior colonoscopy prep.
[2020-01-12] MEDS: NovoLOG Insulin Flexpen SUBQ SCH ×4 (05:54→20:35)
--- NOTE | 2020-01-12 06:42 | Hematology/Onc Progress Note ---
Assessment/Plan Assessment/Plan Assessment and Recs # Anemia of chronic disease - likely multifactorial, with sepsis, poorly controlled DM2, and esrd --> Anemia workup has been ordered, reviewed --> No evidence of hemolysis is noted, peripheral smear has been reviewed. --> Hgb goal >7. Transfuse prn. --> Epogen started --> hgb 5-->5.9-->9.4->9.7-->8.9 ==> hold off on iron --> occult ++ seen by Gi --> colo for 01/10 # Thrombocytopenia likely due to liver disease/cirrhosis-->resolved, also now with sepsis/pna, elev la --> Medications have been reviewed --> if the plt count less than 10k, transfuse immediately. If less than 20k and febrile, transfuse --> If less than 50k and bleeding, transfuse. If neurosurgical bleed, transfuse as well --> plt 168->128-->100-->102 --> us abd with cholelithiasis # Sepsis - on fluids and abx --> iamging as needed --> consider abx [email or web address] # Dehydration --> per renal # Choledocholithiasis with acute cholecystitis --> ERCP when stable -> seen by gi # Dvt ppx scds The timing of this note does not necessarily reflect the time of the patient was seen. Greatly appreciate consultation! Subjective Respiratory: Denies: no symptoms, cough, shortness of breath, SOB with excertion, SOB at rest, sputum, wheezing, other Gastrointestinal/Abdominal: Denies: no symptoms, abdomen distended, abdominal pain, black stools, tarry stools, blood in stool, constipated, diarrhea, difficulty swallowing, nausea, poor appetite, poor fluid intake, rectal bleeding, vomiting, other Genitourinary: Denies: no symptoms, burning, discharge, frequency, flank pain, hematuria, incontinence, pain, urgency, other Neurologic/Psychiatric: Denies: no symptoms, anxiety, depressed, emotional problems, headache, numbness, paresthesia, pre-existing deficit, seizure, tingling, tremors, weakness, other Endocrine: Denies: no symptoms, excessive sweating, flushing, intolerance to cold, intolerance to heat, increased hunger, increased thirst, increased urine, unexplained weight gain, unexplained weight loss, other Hematologic/Lymphatic: Denies: no symptoms, anemia, easy bleeding, easy bruising, adenopathy, other Allergies: Coded Allergies: No Known Allergies (Unverified , 04/21/18) Subjective 01/09 labs reviewed, hgb low, on epo and hd today 01/10 for colo today, no bleeding, meds reviewed, bowel prep+ 01/11 for hd today, no bleeding, labs noted, hgb stable Objective Objective Current Medications Medications (Trade) Dose Ordered Sig/Jamal Route PRN Reason Start Time Stop Time Status Last Admin Dose Admin Azithromycin (Zithromax) 250 mg DAILY ORAL 01/09/20 09:00 01/16/20 08:59 01/11/20 15:49 Ceftriaxone Sodium 1 gm/ Dextrose 55 ml @ 110 mls/hr Q24H IVPB 01/09/20 08:00 01/16/20 07:59 01/11/20 08:22 Chlorhexidine Gluconate (Jen-Hex 2%) 1 applic DAILY@2000 TOPIC 01/10/20 20:00 04/09/20 19:59 01/11/20 22:00 Dextrose (Dextrose 50%) 25 ml Q30M PRN IV Hypoglycemia 01/08/20 04:15 04/07/20 04:14 01/09/20 12:09 Dextrose (Dextrose 50%) 50 ml Q30M PRN IV Hypoglycemia 01/08/20 04:15 04/07/20 04:14 Dextrose/Sodium Chloride 1,000 ml @ 50 mls/hr Q20H IV 01/10/20 08:00 02/09/20 07:59 01/11/20 05:20 Docusate Sodium (Colace) 100 mg THREE TIMES A DAY ORAL 01/09/20 18:00 02/08/20 17:59 Epoetin Andre (Epoetin Andre(ESRD on dialysis)) 6,000 unit THU-WED-THU SUBQ 01/11/20 21:00 04/10/20 20:59 01/11/20 21:22 Insulin Aspart (NovoLOG) BEFORE MEALS AND HS SUBQ 01/08/20 06:30 04/07/20 06:29 01/11/20 21:24 Mirtazapine (Remeron) 7.5 mg QHS PRN ORAL insomnia 01/10/20 00:30 04/09/20 00:29 Pantoprazole (Protonix) 40 mg EVERY 12 HOURS IVP 01/10/20 09:00 02/09/20 08:59 01/11/20 21:22 Tamsulosin HCl (Flomax) 0.4 mg BID ORAL 01/10/20 13:00 02/08/20 20:59 01/11/20 15:49 Last 24 Hour Vital Signs Date Time Temp Pulse Resp B/P (MAP) Pulse Ox O2 Delivery O2 Flow Rate FiO2 01/12/20 04:00 98.3 63 20 136/80 (98) 98 01/12/20 00:00 98.1 58 20 134/68 (90) 98 01/11/20 23:10 Room Air 01/11/20 20:00 97.6 64 18 149/74 (99) 98 01/11/20 16:06 97.0 86 18 124/71 (88) 98 01/11/20 16:00 Room Air 01/11/20 13:00 97.8 56 17 136/75 97 Nasal Cannula 3 01/11/20 12:50 55 16 130/70 96 Nasal Cannula 3 01/11/20 12:40 51 16 133/71 98 Nasal Cannula 3 01/11/20 12:36 53 14 98 01/11/20 12:35 51 14 135/75 98 Nasal Cannula 3 01/11/20 12:33 52 14 100 01/11/20 12:30 51 15 129/76 97 Nasal Cannula 3 01/11/20 12:25 97.0 51 14 132/74 100 Nasal Cannula 3 01/11/20 12:00 Room Air 01/11/20 12:00 77 01/11/20 08:00 Room Air 01/11/20 08:00 54 01/11/20 04:00 Room Air 01/11/20 04:00 97.2 64 20 124/54 (77) 100 01/11/20 04:00 56 01/11/20 00:00 97.8 56 18 111/60 (77) 100 01/11/20 00:00 Room Air 01/10/20 23:36 60 01/10/20 20:00 Room Air 01/10/20 20:00 97.7 59 16 125/76 (92) 100 01/10/20 20:00 60 01/10/20 17:00 Room Air 01/10/20 16:00 98.2 57 20 117/61 (79) 100 01/10/20 16:00 Room Air 01/10/20 16:00 60 01/10/20 12:00 97.7 55 20 141/74 (96) 100 01/10/20 12:00 Room Air 01/10/20 11:50 62 01/10/20 08:00 98.2 60 20 121/69 (86) 100 01/10/20 08:00 Room Air 01/10/20 07:33 58 Intake and Output 01/11/20 01/12/20 19:00 07:00 Intake Total 300 ml Output Total 800 ml 200 ml Balance -500 ml -200 ml Intake Oral 300 ml Output Urine Total 800 ml 200 ml # Voids 1 # Bowel Movements 1 3 Labs Test 01/09/20 09:00 01/09/20 11:58 01/09/20 12:55 01/09/20 17:56 Stool Occult Blood Positive (NEGATIVE) POC Whole Blood Glucose 67 MG/DL (74-106) 102 MG/DL (74-106) 108 MG/DL (74-106) Test 01/09/20 20:41 01/10/20 02:50 01/10/20 04:00 01/10/20 05:35 POC Whole Blood Glucose 105 MG/DL (74-106) Uric Acid 2.9 MG/DL (2.6-7.2) Phosphorus Level 3.3 MG/DL (2.5-4.9) Magnesium Level 2.2 MG/DL (1.8-2.4) Lactate Dehydrogenase 225 U/L (81-234) C-Reactive Protein, Quantitative 10.4 mg/dL (0.00-0.90) Pro-B-Type Natriuretic Peptide 82924 pg/mL (0-125) Triglycerides Level 78 MG/DL (30-150) Cholesterol Level 77 MG/DL (< 200) LDL Cholesterol 27 mg/dL (<100) HDL Cholesterol 41 MG/DL (40-60) Cholesterol/HDL Ratio 1.9 (3.3-4.4) Lipase 575 U/L (73-393) Thyroid Stimulating Hormone (TSH) 4.277 uiU/mL (0.358-3.740) Hepatitis B Surface Antigen Negative (NEGATIVE) Arterial Blood pH 7.525 (7.350-7.450) Arterial Blood Partial Pressure CO2 25.9 mmHg (35.0-45.0) Arterial Blood Partial Pressure O2 112.0 mmHg (75.0-100.0) Arterial Blood HCO3 20.9 mmol/L (22.0-26.0) Arterial Blood Oxygen Saturation 97.2 % (95-100) Arterial Blood Base Excess -1.3 (-2-2) Oje Test Positive White Blood Count 8.7 K/UL (4.8-10.8) Red Blood Count 3.19 M/UL (4.70-6.10) Hemoglobin 9.7 G/DL (14.2-18.0) Hematocrit 27.8 % (42.0-52.0) Mean Corpuscular Volume 87 FL (80-99) Mean Corpuscular Hemoglobin 30.4 PG (27.0-31.0) Mean Corpuscular Hemoglobin Concent 35.0 G/DL (32.0-36.0) Red Cell Distribution Width 14.2 % (11.6-14.8) Platelet Count 100 K/UL (150-450) Mean Platelet Volume 7.4 FL (6.5-10.1) Neutrophils (%) (Auto) % (45.0-75.0) Lymphocytes (%) (Auto) % (20.0-45.0) Monocytes (%) (Auto) % (1.0-10.0) Eosinophils (%) (Auto) % (0.0-3.0) Basophils (%) (Auto) % (0.0-2.0) Sodium Level 135 MMOL/L (136-145) Potassium Level 2.8 MMOL/L (3.5-5.1) Chloride Level 101 MMOL/L (98-107) Carbon Dioxide Level 23 MMOL/L (21-32) Anion Gap 11 mmol/L (5-15) Blood Urea Nitrogen 55 mg/dL (7-18) Creatinine 4.7 MG/DL (0.55-1.30) Estimat Glomerular Filtration Rate 12.6 mL/min (>60) Glucose Level 114 MG/DL (74-106) Hemoglobin A1c 5.4 % (4.3-6.0) Calcium Level 7.3 MG/DL (8.5-10.1) Total Bilirubin 0.5 MG/DL (0.2-1.0) Aspartate Amino Transf (AST/SGOT) 16 U/L (15-37) Alanine Aminotransferase (ALT/SGPT) 12 U/L (12-78) Alkaline Phosphatase 100 U/L (46-116) Total Protein 5.5 G/DL (6.4-8.2) Albumin 2.1 G/DL (3.4-5.0) Globulin 3.4 g/dL Albumin/Globulin Ratio 0.6 (1.0-2.7) Test 01/10/20 06:20 01/10/20 08:00 01/10/20 09:29 01/10/20 11:50 POC Whole Blood Glucose 111 MG/DL (74-106) 90 MG/DL (74-106) 96 MG/DL (74-106) Sodium Level 135 MMOL/L (136-145) Potassium Level 2.9 MMOL/L (3.5-5.1) Chloride Level 101 MMOL/L (98-107) Carbon Dioxide Level 25 MMOL/L (21-32) Anion Gap 9 mmol/L (5-15) Blood Urea Nitrogen 55 mg/dL (7-18) Creatinine 4.8 MG/DL (0.55-1.30) Estimat Glomerular Filtration Rate 12.3 mL/min (>60) Glucose Level 105 MG/DL (74-106) Calcium Level 7.3 MG/DL (8.5-10.1) Test 01/10/20 16:22 01/10/20 21:28 01/11/20 03:56 01/11/20 05:57 POC Whole Blood Glucose 89 MG/DL (74-106) 83 MG/DL (74-106) White Blood Count 7.9 K/UL (4.8-10.8) Red Blood Count 2.91 M/UL (4.70-6.10) Hemoglobin 8.9 G/DL (14.2-18.0) Hematocrit 25.7 % (42.0-52.0) Mean Corpuscular Volume 88 FL (80-99) Mean Corpuscular Hemoglobin 30.5 PG (27.0-31.0) Mean Corpuscular Hemoglobin Concent 34.5 G/DL (32.0-36.0) Red Cell Distribution Width 14.1 % (11.6-14.8) Platelet Count 102 K/UL (150-450) Mean Platelet Volume 7.5 FL (6.5-10.1) Neutrophils (%) (Auto) 77.3 % (45.0-75.0) Lymphocytes (%) (Auto) 16.0 % (20.0-45.0) Monocytes (%) (Auto) 5.9 % (1.0-10.0) Eosinophils (%) (Auto) 0.3 % (0.0-3.0) Basophils (%) (Auto) 0.5 % (0.0-2.0) Sodium Level 135 MMOL/L (136-145) Potassium Level 3.4 MMOL/L (3.5-5.1) Chloride Level 102 MMOL/L (98-107) Carbon Dioxide Level 21 MMOL/L (21-32) Anion Gap 12 mmol/L (5-15) Blood Urea Nitrogen 61 mg/dL (7-18) Creatinine 5.5 MG/DL (0.55-1.30) Estimat Glomerular Filtration Rate 10.5 mL/min (>60) Glucose Level 87 MG/DL (74-106) Uric Acid 3.6 MG/DL (2.6-7.2) Calcium Level 7.2 MG/DL (8.5-10.1) Phosphorus Level 5.5 MG/DL (2.5-4.9) Magnesium Level 2.1 MG/DL (1.8-2.4) Total Bilirubin 0.5 MG/DL (0.2-1.0) Aspartate Amino Transf (AST/SGOT) 18 U/L (15-37) Alanine Aminotransferase (ALT/SGPT) 14 U/L (12-78) Alkaline Phosphatase 90 U/L (46-116) C-Reactive Protein, Quantitative 11.3 mg/dL (0.00-0.90) Total Protein 5.5 G/DL (6.4-8.2) Albumin 2.1 G/DL (3.4-5.0) Globulin 3.4 g/dL Albumin/Globulin Ratio 0.6 (1.0-2.7) Test 01/11/20 13:23 01/11/20 13:47 01/11/20 13:59 01/11/20 17:02 POC Whole Blood Glucose 68 MG/DL (74-106) 69 MG/DL (74-106) 95 MG/DL (74-106) 143 MG/DL (74-106) Height (Feet): 5 Height (Inches): 4.00 Weight (Pounds): 99 Objective Physical Exam Vitals: reviewed General: GCS 15, thin, other - Cold, Chronically Ill - Cachectic Heent: dry mucus membranes, full range of motion, supple, no meningismus Respiratory: chest non-tender, lungs clear, normal breath sounds Cardiovascular: bradycardia, 2+ radial (R) Gastrointestinal: other - Spider habitus, decreased bowel sound Musculoskeletal: back normal, normal range of motion, no calf tenderness Neurologic: oriented - x 2 Psychiatric: mood/affect normal Skin: pallor - Sallow and cold Guero Hernandez MD Jan 12, 2020 06:42
--- NOTE | 2020-01-12 07:43 | NUR ---
HAND-OFF: Report given to AMARILIS Friedman. Changed IJ dressing with AM nurse.
--- NOTE | 2020-01-12 07:55 | NUR ---
NURSE NOTES: Patient's sitting in semi-Fuentes's, awake and alert, RIJ covered with blood-soaked dressing due to leakage, Dr. Kamron Allan notified per report from Fabiola Simpson RN evening shift, Fabiola Simpson RN just changed the dressing again, bed in lowest position, call light within reach, no c/o pain, no SOB, on room air, respirations at 16 breaths per minute, in no apparent distress.
--- NOTE | 2020-01-12 08:13 | NUR ---
NURSE NOTES: Notified Dr. Kamron Allan that right IJ is leaking blood and was instructed to notify Dr. Orlin Berrios.
--- NOTE | 2020-01-12 08:15 | NUR ---
NURSE NOTES: Spoke with Shelia at Dr. León Lambert's office notifying that patient wants to sign consent with the doctor, patient is Bangladeshi speaking.
--- NOTE | 2020-01-12 08:18 | NUR ---
NURSE NOTES: Left message on voicemail of Dr. Orlin Berrios reporting right internal jugular IV access is leaking.
--- NOTE | 2020-01-12 08:20 | NUR ---
NURSE NOTES: I spoke with Timothy at [facility]; dialysis scheduled for today, notified that patient is having a procedure at 11:30 a.m..
--- NOTE | 2020-01-12 08:52 | NUR ---
NURSE NOTES: Dr. Orlin Berrios returned call. Instructed to call interventional radiology. Valeriy Carroll RN, Charge Nurse contacted IR and they will come to fix the RIJ.
[2020-01-12 08:55] LABS: HEMATOCRIT 23.7 % (42.0-52.0); MEAN CORPUSCULAR VOLUME 91 FL (80-99); PLATELET COUNT 96 K/UL (150-450); RED BLOOD COUNT 2.59 M/UL (4.70-6.10); RED CELL DISTRIBUTION WIDTH 14.2 % (11.6-14.8); WHITE BLOOD COUNT 8.1 K/UL (4.8-10.8)
[2020-01-12] MEDS: cefTRIAXone 1 GM in D5W 55 ML IVPB SCH (08:55)
[2020-01-12] MEDS: Tamsulosin 0.4mg cap ORAL SCH ×2 (08:56→17:44)
[2020-01-12] MEDS: Pantoprazole Inj IVP SCH ×2 (08:56→20:34)
[2020-01-12] MEDS: Azithromycin 250mg tab ORAL SCH (08:56)
[2020-01-12] MEDS: Docusate 100mg cap ORAL SCH ×3 (08:56→17:43)
[2020-01-12 09:30] LABS: ALBUMIN 2.1 G/DL (3.4-5.0); ALBUMIN/GLOBULIN RATIO 0.5 (1.0-2.7); BILIRUBIN,TOTAL 0.4 MG/DL (0.2-1.0); CALCIUM 7.6 MG/DL (8.5-10.1); POTASSIUM 3.7 MMOL/L (3.5-5.1)
--- NOTE | 2020-01-12 09:38 | General Progress Note ---
Subjective Allergies: Coded Allergies: No Known Allergies (Unverified , 04/21/18) Subjective doing better bleeding from ij urology and surgery eval Objective Last 24 Hour Vital Signs Date Time Temp Pulse Resp B/P (MAP) Pulse Ox O2 Delivery O2 Flow Rate FiO2 01/12/20 08:00 98.2 63 20 137/73 (94) 99 01/12/20 04:00 98.3 63 20 136/80 (98) 98 01/12/20 00:00 98.1 58 20 134/68 (90) 98 01/11/20 23:10 Room Air 01/11/20 20:00 97.6 64 18 149/74 (99) 98 01/11/20 16:06 97.0 86 18 124/71 (88) 98 01/11/20 16:00 Room Air 01/11/20 13:00 97.8 56 17 136/75 97 Nasal Cannula 3 01/11/20 12:50 55 16 130/70 96 Nasal Cannula 3 01/11/20 12:40 51 16 133/71 98 Nasal Cannula 3 01/11/20 12:36 53 14 98 01/11/20 12:35 51 14 135/75 98 Nasal Cannula 3 01/11/20 12:33 52 14 100 01/11/20 12:30 51 15 129/76 97 Nasal Cannula 3 01/11/20 12:25 97.0 51 14 132/74 100 Nasal Cannula 3 01/11/20 12:00 Room Air 01/11/20 12:00 77 Intake and Output 01/11/20 01/12/20 19:00 07:00 Intake Total 300 ml Output Total 800 ml 200 ml Balance -500 ml -200 ml Intake Oral 300 ml Output Urine Total 800 ml 200 ml # Voids 1 # Bowel Movements 1 3 Laboratory Tests 01/11/20 13:23: POC Whole Blood Glucose 68L 01/11/20 13:47: POC Whole Blood Glucose 69L 01/11/20 13:59: POC Whole Blood Glucose 95 01/11/20 17:02: POC Whole Blood Glucose 143H 01/11/20 19:54: POC Whole Blood Glucose 149H 01/12/20 08:25: White Blood Count 8.1, Red Blood Count 2.59L, Hemoglobin 8.0L, Hematocrit 23.7L, Mean Corpuscular Volume 91, Mean Corpuscular Hemoglobin 30.9, Mean Corpuscular Hemoglobin Concent 33.8, Red Cell Distribution Width 14.2, Platelet Count 96L, Mean Platelet Volume 7.3, Neutrophils (%) (Auto) , Lymphocytes (%) (Auto) , Monocytes (%) (Auto) , Eosinophils (%) (Auto) , Basophils (%) (Auto) , Neutrophils % (Manual) [Pending], Lymphocytes % (Manual) [Pending], Platelet Estimate [Pending], Platelet Morphology [Pending], Sodium Level [Pending], Potassium Level [Pending], Chloride Level [Pending], Carbon Dioxide Level [Pending], Blood Urea Nitrogen [Pending], Creatinine [Pending], Estimat Glomerular Filtration Rate [Pending], Glucose Level [Pending], Calcium Level [Pending], Total Bilirubin [Pending], Aspartate Amino Transf (AST/SGOT) [Pending], Alanine Aminotransferase (ALT/SGPT) [Pending], Alkaline Phosphatase [Pending], Total Protein [Pending], Albumin [Pending], Globulin [Pending] Height (Feet): 5 Height (Inches): 4.00 Weight (Pounds): 99 General Appearance: alert EENT: PERRL/EOMI Neck: supple Cardiovascular: regular rhythm Respiratory/Chest: normal breath sounds Abdomen: non tender, soft Extremities: non-tender Neurologic: motor weakness, other Assessment/Plan Assessment/Plan: ac kidney failure improving 1 anemia r/o gi bleeding hh better 2 severe malnutrition 3 wt loss 4 fever r/o sepsis 5 dm type 2 gi w/u today cont ss, accue check pt/ot Kamron Dong MD Jan 12, 2020 09:38
--- NOTE | 2020-01-12 10:23 | Nephrology Progress Note ---
Assessment/Plan Problem List: (1) JONA (acute kidney injury) (2) Hyperkalemia (3) Anemia (4) Metabolic acidosis (5) Ureter obstruction (6) Failure to thrive Assessment Renal failure acute, superimposed on chronic Hyperkalemia Acidosis Presented with severe anemia on admission, transfused 3 units packed RBCs since admission. History of hypertension History of diabetes mellitus 01/09/2020----PATIENT NEED EMERGENCY LIFE SAVING DIALYSIS Plan January 11: Patient due for dialysis today. Continue per GI management. Labs reviewed. Will arrange for tunneled dialysis catheter and outpatient dialysis center placement. Urological evaluation pending. January 10: Patient was dialyzed January 08. Is undergoing GI evaluation. Labs reviewed. Due for dialysis again tomorrow. Urological evaluation for bladder retention pending. Insertion of temporary non tunneled dialysis catheter followed by dialysis to correct acidosis hyperkalemia, done yesterday Continue per consultants Monitor electrolytes and renal parameters Hemodialysis as needed Urology evaluation for urinary retention Per orders Subjective ROS Limited/Unobtainable: No Constitutional: Reports: malaise Objective Objective Last 24 Hour Vital Signs Date Time Temp Pulse Resp B/P (MAP) Pulse Ox O2 Delivery O2 Flow Rate FiO2 01/12/20 08:00 98.2 63 20 137/73 (94) 99 01/12/20 04:00 98.3 63 20 136/80 (98) 98 01/12/20 00:00 98.1 58 20 134/68 (90) 98 01/11/20 23:10 Room Air 01/11/20 20:00 97.6 64 18 149/74 (99) 98 01/11/20 16:06 97.0 86 18 124/71 (88) 98 01/11/20 16:00 Room Air 01/11/20 13:00 97.8 56 17 136/75 97 Nasal Cannula 3 01/11/20 12:50 55 16 130/70 96 Nasal Cannula 3 01/11/20 12:40 51 16 133/71 98 Nasal Cannula 3 01/11/20 12:36 53 14 98 01/11/20 12:35 51 14 135/75 98 Nasal Cannula 3 01/11/20 12:33 52 14 100 01/11/20 12:30 51 15 129/76 97 Nasal Cannula 3 01/11/20 12:25 97.0 51 14 132/74 100 Nasal Cannula 3 01/11/20 12:00 Room Air 01/11/20 12:00 77 Intake and Output 01/11/20 01/12/20 19:00 07:00 Intake Total 300 ml Output Total 800 ml 200 ml Balance -500 ml -200 ml Intake Oral 300 ml Output Urine Total 800 ml 200 ml # Voids 1 # Bowel Movements 1 3 Laboratory Tests 01/11/20 13:23: POC Whole Blood Glucose 68L 01/11/20 13:47: POC Whole Blood Glucose 69L 01/11/20 13:59: POC Whole Blood Glucose 95 01/11/20 17:02: POC Whole Blood Glucose 143H 01/11/20 19:54: POC Whole Blood Glucose 149H 01/12/20 08:25: White Blood Count 8.1, Red Blood Count 2.59L, Hemoglobin 8.0L, Hematocrit 23.7L, Mean Corpuscular Volume 91, Mean Corpuscular Hemoglobin 30.9, Mean Corpuscular Hemoglobin Concent 33.8, Red Cell Distribution Width 14.2, Platelet Count 96L, Mean Platelet Volume 7.3, Neutrophils (%) (Auto) , Lymphocytes (%) (Auto) , Monocytes (%) (Auto) , Eosinophils (%) (Auto) , Basophils (%) (Auto) , Neutrophils % (Manual) [Pending], Lymphocytes % (Manual) [Pending], Platelet Estimate [Pending], Platelet Morphology [Pending], Sodium Level 137, Potassium Level 3.7, Chloride Level 106, Carbon Dioxide Level 21, Anion Gap 10, Blood Urea Nitrogen 64H, Creatinine 6.0H, Estimat Glomerular Filtration Rate 9.5, Glucose Level 107H, Calcium Level 7.6L, Total Bilirubin 0.4, Aspartate Amino Transf (AST/SGOT) 14L, Alanine Aminotransferase (ALT/SGPT) 13, Alkaline Phosphatase 81, Total Protein 6.0L, Albumin 2.1L, Globulin 3.9, Albumin/Globulin Ratio 0.5L Height (Feet): 5 Height (Inches): 4.00 Weight (Pounds): 99 General Appearance: no apparent distress Cardiovascular: normal rate Abdomen: soft Objective No change Orlin Berrios MD Jan 12, 2020 10:23
--- NOTE | 2020-01-12 10:32 | Pulmonology Progress Note ---
Subjective ROS Limited/Unobtainable: No Interval Events: None new Constitutional: Reports: no symptoms HEENT: Repors: no symptoms Respiratory: Reports: no symptoms Cardiovascular: Reports: no symptoms Gastrointestinal/Abdominal: Reports: no symptoms Genitourinary: Reports: no symptoms Allergies: Coded Allergies: No Known Allergies (Unverified , 04/21/18) Objective Last 24 Hour Vital Signs Date Time Temp Pulse Resp B/P (MAP) Pulse Ox O2 Delivery O2 Flow Rate FiO2 01/12/20 08:00 98.2 63 20 137/73 (94) 99 01/12/20 04:00 98.3 63 20 136/80 (98) 98 01/12/20 00:00 98.1 58 20 134/68 (90) 98 01/11/20 23:10 Room Air 01/11/20 20:00 97.6 64 18 149/74 (99) 98 01/11/20 16:06 97.0 86 18 124/71 (88) 98 01/11/20 16:00 Room Air 01/11/20 13:00 97.8 56 17 136/75 97 Nasal Cannula 3 01/11/20 12:50 55 16 130/70 96 Nasal Cannula 3 01/11/20 12:40 51 16 133/71 98 Nasal Cannula 3 01/11/20 12:36 53 14 98 01/11/20 12:35 51 14 135/75 98 Nasal Cannula 3 01/11/20 12:33 52 14 100 01/11/20 12:30 51 15 129/76 97 Nasal Cannula 3 01/11/20 12:25 97.0 51 14 132/74 100 Nasal Cannula 3 01/11/20 12:00 Room Air 01/11/20 12:00 77 Intake and Output 01/11/20 01/12/20 19:00 07:00 Intake Total 300 ml Output Total 800 ml 200 ml Balance -500 ml -200 ml Intake Oral 300 ml Output Urine Total 800 ml 200 ml # Voids 1 # Bowel Movements 1 3 General Appearance: no acute distress HEENT: normocephalic Respiratory: chest wall non-tender, lungs clear Cardiovascular: normal peripheral pulses Abdomen: normal bowel sounds Laboratory Tests 01/11/20 13:23: POC Whole Blood Glucose 68L 01/11/20 13:47: POC Whole Blood Glucose 69L 01/11/20 13:59: POC Whole Blood Glucose 95 10/28/20 17:02: POC Whole Blood Glucose 143H 01/11/20 19:54: POC Whole Blood Glucose 149H 01/12/20 08:25: White Blood Count 8.1, Red Blood Count 2.59L, Hemoglobin 8.0L, Hematocrit 23.7L, Mean Corpuscular Volume 91, Mean Corpuscular Hemoglobin 30.9, Mean Corpuscular Hemoglobin Concent 33.8, Red Cell Distribution Width 14.2, Platelet Count 96L, Mean Platelet Volume 7.3, Neutrophils (%) (Auto) , Lymphocytes (%) (Auto) , Monocytes (%) (Auto) , Eosinophils (%) (Auto) , Basophils (%) (Auto) , Neutrophils % (Manual) [Pending], Lymphocytes % (Manual) [Pending], Platelet Estimate [Pending], Platelet Morphology [Pending], Sodium Level 137, Potassium L evel 3.7, Chloride Level 106, Carbon Dioxide Level 21, Anion Gap 10, Blood Urea Nitrogen 64H, Creatinine 6.0H, Estimat Glomerular Filtration Rate 9.5, Glucose Level 107H, Calcium Level 7.6L, Total Bilirubin 0.4, Aspartate Amino Transf (AST/SGOT) 14L, Alanine Aminotransferase (ALT/SGPT) 13, Alkaline Phosphatase 81, Total Protein 6.0L, Albumin 2.1L, Globulin 3.9, Albumin/Globulin Ratio 0.5L Current Medications Medications (Trade) Dose Ordered Sig/Jamal Route PRN Reason Start Time Stop Time Status Last Admin Dose Admin Azithromycin (Zithromax) 250 mg DAILY ORAL 01/09/20 09:00 01/16/20 08:59 01/12/20 08:56 Ceftriaxone Sodium 1 gm/ Dextrose 55 ml @ 110 mls/hr Q24H IVPB 01/09/20 08:00 01/16/20 07:59 01/12/20 08:55 Chlorhexidine Gluconate (Jen-Hex 2%) 1 applic DAILY@2000 TOPIC 01/10/20 20:00 04/09/20 19:59 01/11/20 22:00 Dextrose (Dextrose 50%) 25 ml Q30M PRN IV Hypoglycemia 01/08/20 04:15 04/07/20 04:14 01/09/20 12:09 Dextrose (Dextrose 50%) 50 ml Q30M PRN IV Hypoglycemia 01/08/20 04:15 04/07/20 04:14 Dextrose/Sodium Chloride 1,000 ml @ 50 mls/hr Q20H IV 01/10/20 08:00 02/09/20 07:59 01/11/20 05:20 Docusate Sodium (Colace) 100 mg THREE TIMES A DAY ORAL 01/09/20 18:00 02/08/20 17:59 01/12/20 08:56 Epoetin Andre (Epoetin Andre(ESRD on dialysis)) 6,000 unit THU- SUBQ 01/11/20 21:00 04/10/20 20:59 01/11/20 21:22 Insulin Aspart (NovoLOG) BEFORE MEALS AND HS SUBQ 01/08/20 06:30 04/07/20 06:29 01/11/20 21:24 Mirtazapine (Remeron) 7.5 mg QHS PRN ORAL insomnia 01/10/20 00:30 04/09/20 00:29 Pantoprazole (Protonix) 40 mg EVERY 12 HOURS IVP 01/10/20 09:00 02/09/20 08:59 01/12/20 08:56 Tamsulosin HCl (Flomax) 0.4 mg BID ORAL 01/10/20 13:00 02/08/20 20:59 01/11/20 15:49 Assessment/Plan Assessment/Plan ASSESSMENT AND PLAN: 1. Sinus bradycardia. 2. Profound anemia, status post blood transfusion. 3. Mild pulmonary hypertension 4. Probable pneumonia Agree with broad-spectrum antibiotics. saturating well on RA now S/p hemodialysis Nataliya Mclaughlin Omar Syed MD Jan 12, 2020 10:32
--- NOTE | 2020-01-12 10:48 | NUR ---
RD ASSESSMENT & RECOMMENDATIONS SEE CARE ACTIVITY FOR COMPLETE ASSESSMENT DAILY ESTIMATED NEEDS: Needs based on Renal, underweight, 46.8kg 30-35 kcals/kg 0805-8678 total kcals .8-1.2 (w HD 1.2-1.8) g protein/kg 37-56 (w/ HD 56-84 g total protein Fluid per MD NUTRITION DIAGNOSIS: Altered nutrition related lab values R/T renal failure, clinical condition as evidenced by low POC glu (19 18, now improved), elev bun (145-> 64 trend down) and creat (9.7->6.0), elev K on adm (6.6->wnl), elev phos (5.5), pt now on HD. CURRENT DIET:Renal-> NPO for procedure PO DIET RECOMMENDATIONS: RENAL DIET/ Texture as tolerated ADDITIONAL RECOMMENDATIONS: * Standing wt as able for accurate CBW * Monitor for HD initiation- now on HD, first HD on 01/09 * Nepro TID w/ meals (425kcal/19g prot each) * Monitor for continued good PO intake * Check POC glu q3-4 hrs, maintain D5 w/ low BG. * Monitor phos, need for phos binder w/ meals.
--- NOTE | 2020-01-12 10:53 | Immediate Post-Op Evaluation ---
Immediate Post-Op Evalulation Immediate Post-Op Evalulation Procedure: EGD/Colonoscopy Date of Evaluation: Jan 12, 2020 Time of Evaluation: 13:17 IV Fluids: 300 NS Blood Products: 0 Estimated Blood Loss: 10 Urinary Output: 0 Blood Pressure Systolic: 73 Blood Pressure Diastolic: 40 Pulse Rate: 42 Respiratory Rate: 16 O2 Sat by Pulse Oximetry: 100 Temperature (Fahrenheit): 97.2 Pain Score (1-10): 2 Nausea: No Vomiting: No Complications 0 Patient Status: awake, reacts, patent, none Hydration Status: adequate Nathan Mejia MD Jan 12, 2020 10:53
--- NOTE | 2020-01-12 10:55 | 48 Hour Post Anesthesia Eval ---
Post Anesthesia Evaluation Procedure: EGD/Colonoscopy Date of Evaluation: Jan 12, 2020 Time of Evaluation: 15:23 Blood Pressure Systolic: 123 0: 72 Pulse Rate: 46 Respiratory Rate: 18 Temperature (Fahrenheit): 98 O2 Sat by Pulse Oximetry: 100 Airway: patent Nausea: No Vomiting: No Pain Intensity: 2 Hydration Status: adequate Cardiopulmonary Status: Stable Mental Status/LOC: patient returned to baseline Follow-up Care/Observations: 0 Post-Anesthesia Complications: 0 Follow-up care needed: N/A Nathan Mejia MD Jan 12, 2020 10:54
[2020-01-12] MEDS ORDERED: Hydromorphone 0.5mg/0.5ml inj IVP PRN (11:00)
[2020-01-12] MEDS ORDERED: Ketorolac 30mg Inj IV PRN ×2 (11:00)
[2020-01-12] MEDS ORDERED: HYDROcodone/Acetamin 5/325 tab ORAL PRN (11:00)
[2020-01-12] MEDS ORDERED: Labetalol 5mg/ml 20ml vial IV PRN (11:00)
[2020-01-12] MEDS ORDERED: oxyCODONE HCL/Acetaminophen 5/325mg ORAL PRN (11:00)
[2020-01-12] MEDS ORDERED: LORazepam Inj 2mg/ml 1ml IV PRN (11:00)
[2020-01-12] MEDS ORDERED: DiphenhydrAMINE 50mg/ml Inj IVP PRN (11:00)
[2020-01-12] MEDS ORDERED: LR 1000ml 1,000 ML IVLG SCH (11:00)
[2020-01-12] MEDS ORDERED: HYDROcodone/Acetamin 7.5/325 tab ORAL PRN (11:00)
[2020-01-12] MEDS ORDERED: fentaNYL 100 mcg/2 mL IV PRN (11:00)
[2020-01-12] MEDS ORDERED: Midazolam 2mg/2ml Inj IVP PRN (11:00)
[2020-01-12] MEDS ORDERED: Meperidine 25mg/1ml Inj (FOR RIGORS ONLY) IV PRN (11:00)
[2020-01-12] MEDS ORDERED: Atropine Sulfate 0.4mg/ml inj IVP PRN (11:00)
[2020-01-12] MEDS ORDERED: Metoclopramide 10mg/2ml Inj IVP PRN (11:00)
[2020-01-12] MEDS ORDERED: Iothalamate Meglumine 60% 50ML INJ ONE (11:26)
--- NOTE | 2020-01-12 11:43 | NUR ---
NURSE NOTES:WOUND ASSESSMENT PATIENT AWAKE, ALERT AND ABLE TO ASSIST WITH REPOSITIONING. PATIENT STATES HE HAS DIARRHEA. SACRUM- DTI MEASURES 6.0X7.0XO.1CM DARK PURPLE WITH REDNESS NOTED TO PER-WOUND SKIN. RECOMMEND-CLEAN AREA WITH SALINE AND OR SOAP AND WATER. PAT DRY. APPLY TRIAD AND COVER WITH OPTIFOAM DRESSING. REPLACE DRESSING EVERY OTHER DAY AND NEEDED. SCROTUM- EXCORIATION AND REDNESS NOTED. RECOMMEND- APPLY TRIAD TO AREA NEEDED. LEFT HIP- STAGE I MEASURES 7.0X7.0X0.1CM. NON-BLANCHABLE ERYTHEMA WITH DARK RED CAL-WOUND SKIN. RECOMMEND-APPLY CAVILON SKIN PROTECTOR AND COVER WITH OPTIFOAM DRESSING. REPLACE EVERY 3 DAYS AND OR NEEDED. RIGHT HEEL-DTI MEASURES5.0X2.5X0.1CM. DARK PURPLE COLORED SKIN AND BOGGY TO TOUCH. SKIN INTACT RECOMMEND- APPLY CAVILON SKIN PROTECTOR AND COVER WITH OPTIFOAM DRESSING. REPLACE DRESSING EVERY OTHER DAY AND OR NEEDED. ALSO RECOMMEND- LALM MATTRESS OVERLAY REPOSITION AT LEAST EVERY 2 HOURS OR TOLERATED. ELEVATE HEELS WITH PILLOWS
[2020-01-12] MEDS ORDERED: Midazolam 2mg/2ml Inj ONE (11:58)
[2020-01-12] MEDS ORDERED: Atropine Sulfate 0.4mg/ml inj ONE (12:00)
[2020-01-12] MEDS ORDERED: Lidocaine 1% MPF 10mg/ml 5ml ONE (12:00)
[2020-01-12] MEDS ORDERED: LR 1000ml ONE (12:00)
--- NOTE | 2020-01-12 12:04 | Pre-Procedure Note/Attestation ---
Pre-Procedure Note/Attestation Complete Prior to Procedure Planned Procedure: not applicable Procedure Narrative: ercp Indications for Procedure Pre-Operative Diagnosis: cbd stone Attestation I attest that I discussed the nature of the procedure; its benefits; risks and complications; and alternatives (and the risks and benefits of such alternatives), prior to the procedure, with the patient (or the patient's legal inbound call center representative). I attest that, if there was a reasonable possibility of needing a blood transfusion, the patient (or the patient's legal inbound call center representative) was given the [facility] standardized written summary, pursuant to the Ja [place] Blood Safety Act ([place] Health and Safety Code # 1645, as amended). I attest that I re-evaluated the patient just prior to the surgery and that there has been no change in the patient's H&P, except as documented below: León Lambert MD Jan 12, 2020 12:04
[2020-01-12] MEDS ORDERED: NS 500ML IVPB ONE (12:10)
--- NOTE | 2020-01-12 12:13 | NUR ---
NURSE NOTES: Right IJ secured by Dr. Martin Sterling, soft care mattress placed on bed. Patient off unit for ERCP.
[2020-01-12] MEDS ORDERED: Flumazenil 0.5mg/5ml Inj IV ONE (13:08)
--- NOTE | 2020-01-12 13:22 | Consultation ---
History of Present Illness General Date patient seen: Jan 12, 2020 Reason for Hospitalization: Generalized Weakness Present Illness HPI This is a very pleasant 64-year-old male known to me from prior who presents [facility] currently under the medical team's care for chol edocholithiasis status post ERCP for evacuation of stones which he is had in the past. Prior recommendations for cholecystectomy but does not since agreed to proceed with surgical intervention. During this admission patient had a right internal jugular temporary hemodialysis catheter insertion for hemodialysis which identified to have significant bleeding today hemorrhage from hemostatic dialysis access site. Surgery called to evaluate assist with care. Patient seen, patient evaluated, chart reviewed. Patient denies any complaints. Allergies: Coded Allergies: No Known Allergies (Unverified , 04/21/18) COVID-19 Screening Contact w/high risk pt: No Experienced COVID-19 symptoms?: No Medication History Unable to Obtain Active Prescriptions or Reported Meds Patient History History Provided By: Patient, Medical Record, PMD Healthcare decision maker Resuscitation status Advanced Directive on File Past Medical/Surgical History Past Medical/Surgical History: (1) Acute cholecystitis (2) Gall bladder stones (3) Choledocholithiasis with acute cholecystitis (4) Dehydration (5) Gallstone pancreatitis (6) Rectal bleeding (7) Hyperkalemia (8) Anemia (9) Ascites (10) Hypoglycemia (11) Pancreatitis (12) Renal failure (13) Sepsis (14) Metabolic acidosis (15) Gallstones (16) Community acquired pneumonia (17) GI (18) Bradycardia (19) Hypothermia (20) Diabetes (21) Failure to thrive (22) Ureter obstruction (23) JONA (acute kidney injury) Review of Systems Review of Symptoms General ROS: no weight loss or fever Psychological ROS: no depression or mood changes, no memory loss Ophthalmic ROS: no visual changes or eye irritation ENT ROS: no nasal congestion, hearing loss, dizziness Allergy and Immunology ROS: no allergic symptoms or urticaria Hematological and Lymphatic ROS: no swollen glands, unusual bleeding or bruising Endocrine ROS: no polyuria, polydipsia, weight changes, temperature intolerance Respiratory ROS: no cough, shortness of breath, or wheezing Cardiovascular ROS: no chest pain or dyspnea on exertion Gastrointestinal ROS: denies abdominal pain, bright red blood in stool. Musculoskeletal ROS: no myalgias or arthralgias Neurological ROS: no TIA or stroke symptoms Dermatological ROS: no new or changing skin lesions, rashes or pruritis Physical Exam Physical Exam Right IJ site stitch bleeding. Mild oozing from the insertion site. General appearance: alert, cooperative, no distress, appears stated age Head: Normocephalic, without obvious abnormality, atraumatic Eyes: conjunctivae/corneas clear. PERRL, EOM's intact. Fundi benign Throat: Lips, mucosa, and tongue normal. Teeth and gums normal Neck: supple, symmetrical, trachea midline, no adenopathy, thyroid: not enlarged, symmetric, no tenderness/mass/nodules, no carotid bruit and no JVD Lungs: clear to auscultation bilaterally Heart: regular rate and rhythm, S1, S2 normal, no murmur, click, rub or gallop Abdomen: soft, non-tender. Bowel sounds normal. No masses, no organomegaly Extremities: extremities normal, atraumatic, no cyanosis or edema Pulses: 2+ and symmetric Skin: Skin color, texture, turgor normal. No rashes or lesions Neurologic: Grossly normal Last 24 Hour Vital Signs Date Time Temp Pulse Resp B/P (MAP) Pulse Ox O2 Delivery O2 Flow Rate FiO2 01/12/20 13:15 43 11 100/56 100 Simple Mask 10 01/12/20 13:10 44 11 89/56 100 Simple Mask 10 01/12/20 13:05 42 11 83/55 100 Simple Mask 10 01/12/20 13:05 46 18 100 01/12/20 13:04 42 16 100 01/12/20 12:58 97.2 42 12 68/39 100 Simple Mask 10 01/12/20 12:00 97.9 58 20 148/66 (93) 99 01/12/20 08:00 98.2 63 20 137/73 (94) 99 01/12/20 04:00 98.3 63 20 136/80 (98) 98 01/12/20 00:00 98.1 58 20 134/68 (90) 98 01/11/20 23:10 Room Air 01/11/20 20:00 97.6 64 18 149/74 (99) 98 01/11/20 16:06 97.0 86 18 124/71 (88) 98 01/11/20 16:00 Room Air Intake and Output 01/11/20 01/12/20 19:00 07:00 Intake Total 300 ml Output Total 800 ml 200 ml Balance -500 ml -200 ml Intake Oral 300 ml Output Urine Total 800 ml 200 ml # Voids 1 # Bowel Movements 1 3 Laboratory Tests Test 01/11/20 13:23 01/11/20 13:47 01/11/20 13:59 01/11/20 17:02 POC Whole Blood Glucose 68 MG/DL (74-106) L 69 MG/DL (74-106) L 95 MG/DL (74-106) 143 MG/DL (74-106) H Test 01/11/20 19:54 01/12/20 08:25 01/12/20 11:54 POC Whole Blood Glucose 149 MG/DL (74-106) H 108 MG/DL (74-106) H White Blood Count 8.1 K/UL (4.8-10.8) Red Blood Count 2.59 M/UL (4.70-6.10) L Hemoglobin 8.0 G/DL (14.2-18.0) L Hematocrit 23.7 % (42.0-52.0) L Mean Corpuscular Volume 91 FL (80-99) Mean Corpuscular Hemoglobin 30.9 PG (27.0-31.0) Mean Corpuscular Hemoglobin Concent 33.8 G/DL (32.0-36.0) Red Cell Distribution Width 14.2 % (11.6-14.8) Platelet Count 96 K/UL (150-450) L Mean Platelet Volume 7.3 FL (6.5-10.1) Neutrophils (%) (Auto) % (45.0-75.0) Lymphocytes (%) (Auto) % (20.0-45.0) Monocytes (%) (Auto) % (1.0-10.0) Eosinophils (%) (Auto) % (0.0-3.0) Basophils (%) (Auto) % (0.0-2.0) Differential Total Cells Counted 100 Neutrophils % (Manual) 85 % (45-75) H Lymphocytes % (Manual) 9 % (20-45) L Monocytes % (Manual) 6 % (1-10) Eosinophils % (Manual) 0 % (0-3) Basophils % (Manual) 0 % (0-2) Band Neutrophils 0 % (0-8) Platelet Estimate Decreased L Platelet Morphology Normal Red Blood Cell Morphology Normal Sodium Level 137 MMOL/L (136-145) Potassium Level 3.7 MMOL/L (3.5-5.1) Chloride Level 106 MMOL/L (98-107) Carbon Dioxide Level 21 MMOL/L (21-32) Anion Gap 10 mmol/L (5-15) Blood Urea Nitrogen 64 mg/dL (7-18) H Creatinine 6.0 MG/DL (0.55-1.30) H Estimat Glomerular Filtration Rate 9.5 mL/min (>60) Glucose Level 107 MG/DL (74-106) H Calcium Level 7.6 MG/DL (8.5-10.1) L Total Bilirubin 0.4 MG/DL (0.2-1.0) Aspartate Amino Transf (AST/SGOT) 14 U/L (15-37) L Alanine Aminotransferase (ALT/SGPT) 13 U/L (12-78) Alkaline Phosphatase 81 U/L (46-116) Total Protein 6.0 G/DL (6.4-8.2) L Albumin 2.1 G/DL (3.4-5.0) L Globulin 3.9 g/dL Albumin/Globulin Ratio 0.5 (1.0-2.7) L Hepatitis B Surface Antigen Pending Hepatitis B Surface Antibody, Quant Pending Hepatitis C Antibody Pending Height (Feet): 5 Height (Inches): 4.00 Weight (Pounds): 99 Medications Current Medications Medications (Trade) Dose Ordered Sig/Jamal Route PRN Reason Start Time Stop Time Status Last Admin Dose Admin Acetaminophen/ Hydrocodone Bitart ([employer] 5/325) 1 tab Q1H PRN ORAL Mild Pain (Pain Scale 1-3) 01/12/20 11:00 01/12/20 18:00 Acetaminophen/ Hydrocodone Bitart ([employer] 7.5/325) 1 tab Q1H PRN ORAL Moderate Pain (Pain Scale 4-6) 01/12/20 11:00 01/12/20 18:00 Al Hydroxide/Mg Hydroxide (Mylanta) 15 ml Q1H PRN ORAL gi upset 01/12/20 11:00 01/12/20 18:00 Atropine Sulfate (Atropine 0.4mg/ ml) 0.5 mg Q5M PRN IVP HR<40 01/12/20 11:00 01/12/20 18:00 Azithromycin (Zithromax) 250 mg DAILY ORAL 01/09/20 09:00 01/16/20 08:59 01/12/20 08:56 Ceftriaxone Sodium 1 gm/ Dextrose 55 ml @ 110 mls/hr Q24H IVPB 01/09/20 08:00 01/16/20 07:59 01/12/20 08:55 Chlorhexidine Gluconate (Jen-Hex 2%) 1 applic DAILY@2000 TOPIC 01/10/20 20:00 04/09/20 19:59 01/11/20 22:00 Dextrose (Dextrose 50%) 25 ml Q30M PRN IV Hypoglycemia 01/08/20 04:15 04/07/20 04:14 01/09/20 12:09 Dextrose (Dextrose 50%) 50 ml Q30M PRN IV Hypoglycemia 01/08/20 04:15 04/07/20 04:14 Dextrose/Sodium Chloride 1,000 ml @ 50 mls/hr Q20H IV 01/10/20 08:00 02/09/20 07:59 01/11/20 05:20 Diphenhydramine HCl (Benadryl) 25 mg Q15M PRN IVP Itching 01/12/20 11:00 01/12/20 18:00 Docusate Sodium (Colace) 100 mg THREE TIMES A DAY ORAL 01/09/20 18:00 02/08/20 17:59 01/12/20 08:56 Epoetin Andre (Epoetin Andre(ESRD on dialysis)) 6,000 unit THU-THU-THU SUBQ 01/11/20 21:00 04/10/20 20:59 01/11/20 21:22 Fentanyl Citrate (Sublimaze 100 mcg/2 mL) 25 mcg Q10M PRN IV Moderate Pain (Pain Scale 4-6) 01/12/20 11:00 01/12/20 18:00 Hydromorphone HCl (Dilaudid) 0.5 mg Q15M PRN IVP Severe Pain (Pain Scale 7-10) 01/12/20 11:00 01/12/20 18:00 Insulin Aspart (NovoLOG) BEFORE MEALS AND HS SUBQ 01/08/20 06:30 04/07/20 06:29 01/11/20 21:24 Ketorolac Tromethamine (Toradol 30mg) 15 mg Q1H PRN IV Moderate Breakthru Pain (5-7) 01/12/20 11:00 01/12/20 18:00 Ketorolac Tromethamine (Toradol 30mg) 30 mg Q1H PRN IV Severe Breakthru Pain (>7) 01/12/20 11:00 01/12/20 18:00 Labetalol HCl (Normodyne) 5 mg Q10M PRN IV SBP>160 / DBP>90 01/12/20 11:00 01/12/20 18:00 Lorazepam (Ativan 2mg/ml 1ml) 1 mg Q15M PRN IV For Anxiety 01/12/20 11:00 01/12/20 18:00 Meperidine HCl (Demerol) 25 mg Q5M PRN IV SHIVERING.MAY REPEAT X 1 01/12/20 11:00 01/12/20 18:00 Metoclopramide HCl (Reglan) 10 mg Q1H PRN IVP Nausea & Vomiting 01/12/20 11:00 01/12/20 18:00 Midazolam HCl (Versed 2mg/2ml vial) 1 mg Q15M PRN IVP For Anxiety 01/12/20 11:00 01/12/20 18:00 Mirtazapine (Remeron) 7.5 mg QHS PRN ORAL insomnia 01/10/20 00:30 04/09/20 00:29 Oxycodone/ Acetaminophen (Percocet 5-325) 1 tab Q1H PRN ORAL Severe Pain (Pain Scale 7-10) 01/12/20 11:00 01/12/20 18:00 Pantoprazole (Protonix) 40 mg EVERY 12 HOURS IVP 01/10/20 09:00 02/09/20 08:59 01/12/20 08:56 Tamsulosin HCl (Flomax) 0.4 mg BID ORAL 01/10/20 13:00 02/08/20 20:59 01/11/20 15:49 Assessment/Plan Problem List: (1) Bleeding due to dialysis catheter placement Assessment & Plan: 64-year-old male recently had a right temporary internal jugular dialysis catheter placement by interventional radiology. Patient has been oozing and bleeding from the site since multiple dressings have been changed surgeries been called to evaluate assist with care. Patient seen, patient evaluated, chart reviewed. The site was evaluated dressings were removed there was a large hematoma identified. Hematoma was evacuated removed and site was cleaned with normal saline and gauze. once cleaned was identified that the lateral stitch was oozing and was able to be tightened with surgical instruments the bedside. Once the stitch was tightened down the hemostasis identified pressure was held for 10 minutes and then monitored for a few minutes and hemostasis noted. New dressing applied. Will monitor site. Thank you for your participation's care ICD Codes: T82.838A - Hemorrhage due to vascular prosthetic devices, implants and grafts, initial encounter SNOMED: 98452811, 04361357 (2) Hyperkalemia ICD Codes: E87.5 - Hyperkalemia SNOMED: 65243772 (3) Anemia ICD Codes: D64.9 - Anemia, unspecified SNOMED: 853174283 Qualifiers: Qualified Codes: D64.9 - Anemia, unspecified (4) Ascites ICD Codes: R18.8 - Other ascites SNOMED: 534734995 Qualifiers: Qualified Codes: R18.8 - Other ascites (5) Hypoglycemia ICD Codes: E16.2 - Hypoglycemia, unspecified SNOMED: 320184581 (6) Pancreatitis ICD Codes: K85.90 - Acute pancreatitis without necrosis or infection, unspecified SNOMED: 99271408 Qualifiers: Qualified Codes: K85.90 - Acute pancreatitis without necrosis or infection, unspecified (7) Renal failure ICD Codes: N19 - Unspecified kidney failure SNOMED: 39572530 Qualifiers: Qualified Codes: N17.9 - Acute kidney failure, unspecified (8) Sepsis ICD Codes: A41.9 - Sepsis, unspecified organism SNOMED: 97214431 Qualifiers: Qualified Codes: A41.9 - Sepsis, unspecified organism; R65.20 - Severe sepsis without septic shock; N17.9 - Acute kidney failure, unspecified (9) Metabolic acidosis ICD Codes: E87.2 - Acidosis SNOMED: 45294847 (10) Gallstones ICD Codes: K80.20 - Calculus of gallbladder without cholecystitis without obstruction SNOMED: 321879376 (11) Community acquired pneumonia ICD Codes: J18.9 - Pneumonia, unspecified organism SNOMED: 570980197 Qualifiers: Qualified Codes: J18.9 - Pneumonia, unspecified organism (12) Diabetes ICD Codes: E11.9 - Type 2 diabetes mellitus without complications SNOMED: 64189973 (13) Failure to thrive SNOMED: 51943147 (14) Ureter obstruction ICD Codes: N13.5 - Crossing vessel and stricture of ureter without hydr onephrosis SNOMED: 002760007 (15) JONA (acute kidney injury) ICD Codes: N17.9 - Acute kidney failure, unspecified SNOMED: 16798692 (16) Acute cholecystitis ICD Codes: K81.0 - Acute cholecystitis SNOMED: 15296745 (17) Choledocholithiasis with acute cholecystitis Assessment & Plan: discussed with GI Recommend cholecystectomy when patient agreeable and stable and medically clear ercp Gallbladder is filled with gallstones. The common bile duct is also filled with gallstones. Common bile duct is dilated, measuring 11 mm in diameter. There is mild central intrahepatic biliary ductal dilatation. No obstructing ampullary mass demonstrated. Considerable signal dropout on the fat saturated images in the liver indicates fatty liver. The pancreas, spleen, adrenals are unremarkable. The kidneys demonstrate bilateral cysts. No pelvic mass or adenopathy. Free intraperitoneal fluid is demonstrated. This is mostly seen surrounding the liver. Impression: Somewhat limited exam, as described Cholelithiasis. There is also choledocholithiasis and biliary ductal dilatation. Although choledocholithiasis was reported on the prior study, calculi are much more extensive within the common bile duct on the current exam Ascites fluid, increased in extent from previous study Bilateral renal cyst Bilateral pleural effusions ICD Codes: K80.42 - Calculus of bile duct with acute cholecystitis without obstruction SNOMED: 57165205 (18) Dehydration ICD Codes: E86.0 - Dehydration SNOMED: 42908714 (19) Bradycardia ICD Codes: R00.1 - Bradycardia, unspecified SNOMED: 30222207 (20) Hypothermia ICD Codes: T68.XXXA - Hypothermia, initial encounter SNOMED: 053411255 Qualifiers: Qualified Codes: T68.XXXA - Hypothermia, initial encounter (21) Rectal bleeding ICD Codes: K62.5 - Hemorrhage of anus and rectum SNOMED: 36694920 (22) Gall bladder stones ICD Codes: K80.20 - Calculus of gallbladder without cholecystitis without obstruction SNOMED: 093203187 (23) Gallstone pancreatitis ICD Codes: K85.10 - Biliary acute pancreatitis without necrosis or infection SNOMED: 79154505 (24) Martin Warner Jan 12, 2020 13:22
--- NOTE | 2020-01-12 13:30 | Endoscopy Procedure Note ---
Endoscopy Procedure Note General Indication for Procedure: choledocholithiasis Operative Findings/Diagnosis: same Specimen: none Pt Tolerated Procedure Well: Yes Estimated Blood Loss: none Anesthesia Anesthesiologist: Roge Anesthesia: MAC Inserted Devices Implant(s) used?: No GI Core Measures 50 yrs or older w/o bx or poly: Not Applicable 10yrs. F/U recommended: Not Applicable León Lambert MD Jan 12, 2020 13:30
--- NOTE | 2020-01-12 14:08 | NUR ---
NURSE NOTES: Patient returned from ERCP procedure, blood epmaofvx=823/64, heart rate=40, reported to Marianela at Dr. Orlin Berrios's office. Patient is sitting up in bed, eating lunch, and dialysis started.
--- NOTE | 2020-01-12 15:02 | NUR ---
CASE MANAGEMENT:REVIEW SI;AC KIDNEY FAILURE. FTT. URETER OBSTRUCTION. T 98.3 P 42 R 20 BP 68/39 O2 100% 3L NC H/H 8.0/23.7 BUN 34 CR 6.0 CA 7.6 ALB 2.1 IS;ERCP PROTONIX IV Q12 IVF D5NS @ 50 ML/HR ZITHROMAX PO QD ROCEPHIN IV Q24 MED SURG STATUS DCP;FROM HOME PLAN; PT EVAL TUNNEL CATH PLACEMENT
--- NOTE | 2020-01-12 15:11 | Diagnostic Imaging Report ---
INDICATION: Pain, intraoperative TECHNIQUE: Intraoperative imaging Fluoroscopy time: 145.9 seconds Total dose: 0.65305 mGym2 Total number of images: 8 COMPARISON: Reference made to MRCP 01/11/2020 FINDINGS: Opacification of the extrahepatic bile ducts, filling defects or dilatation of the bile ducts noted. Subsequent placement of a plastic endobiliary stent is noted. IMPRESSION: Intraoperative imaging, as described
--- NOTE | 2020-01-12 16:33 | NUR ---
NURSE NOTES: Post void itjsowqw=[address] Orlin Berrios.
--- NOTE | 2020-01-12 17:00 | Procedure Note ---
DATE OF PROCEDURE: 01/12/2020 SURGEON: León Lambert M.D. ANESTHESIOLOGIST: . REFERRING PHYSICIAN: Alex Allan M.D. PROCEDURE: ERCP, sphincterotomy, stone removal, stent placement. USED INSTRUMENT: Olympus ERCP scope. INDICATION: Choledocholithiasis. The procedure, risks, benefits, and possible consequences, including hemorrhage, aspiration, perforation and infection, and alternative treatments, were explained to the patient/legal guardian by Dr. León Lambert and the patient/legal guardian understood and accepted these risks. PROCEDURE: After informed consent was obtained and the patient was sedated, the ERCP scope was advanced from the mouth into the second portion of the duodenum. The patient had retained food material in the stomach making the procedure very difficult. Using a balloon, common bile duct was completely cannulated. Initial cholangiogram showed dilated common bile duct with multiple stones in it. Then, a guidewire was introduced into the common bile duct. Sphincterotomy was extended using a sphincterotome. Then, using the balloon, the duct was swept multiple times. I would say at least 6 to 7 stones were removed with lots of sludge. Then, at this time, given the patient is not going for surgery, we decided to put a stent. The 10-Ind[place]ian 5 cm stent was successfully placed in the distal common bile duct. The patient tolerated the procedure very well without complications. SUMMARY OF FINDINGS: 1. Choledocholithiasis. 2. Status post ERCP, sphincterotomy, stone removal, stent placement. RECOMMENDATIONS: The patient is to be followed closely. The patient needs surgical consultation for possible cholecystectomy, needs repeat ERCP in 3 months for stent removal. I want to thank Dr. Allan for this kind referral. León Lambert M.D. DR: IVETH JOB#: [id number] CC: Alex Allan M.D.; Fax#: [phone]
--- NOTE | 2020-01-12 18:03 | NUR ---
NURSE NOTES: Torres catheter is patent when checked by flushing/irrigation.
--- NOTE | 2020-01-12 19:46 | NUR ---
NURSE HAND-OFF: Important Events on Shift:ERCP, sphincterotomy, stone removal, stent placement. Bladder scan > 150, clinically, patient is patent and draining clear yellow urine from Torres cather placed by Dr. Cameron Pedraza. Dr. Bert Chavez notified and order placed to check patency. Last TIJ=689, however, unable to aspirate urine. Endorsing placement of wound care orders. Right IJ repaired by Dr. Martin Sterling. Hemodialysis by VIP, no output (no removal of fluid.) Accucheck AC&HS, no insulin needed. Patient Status: Stable Diet: Renal Pending Orders: Loy cath to be placed 01/13/20. Need to place order for NPO after midnoc and need consent. Pending Results/Labs:N/A am labs. Pending MD notification:N/A Latest Vital Signs: Temperature 97.0 , Pulse 60 , B/P 111 /56 , Respiratory Rate 18 , O2 SAT 97 , Nasal Cannula, O2 Flow Rate 3 . Vital Sign Comment: Stable. Latest Mclean Fall Score: 85 Fall Risk: High Risk Safety Measures: Call light Within Reach, Bed Alarm Zone 2, Side Rails Side Rails x3, Bed position Low and Locked. Fall Precautions: Yellow Socks Yellow Gown Door Sign Patient Fall Education Report given to Ari Choi RN.
[2020-01-12] MEDS: D5NS 1,000 ML IV SCH (20:00)
--- NOTE | 2020-01-12 20:08 | NUR ---
NURSE NOTES: Report received from Elder OLMOS. Patient is awake and alert x 4. Patient is Swedish/Swedish speaking, was endorsed to Ari OLMOS that patient can make needs known. Patient is noted to be on room air with no complaints of chest pain or shortness of breath at this time. It is noted that patient has right EJ IV access, was endorsed to Ari OLMOS that there are other nursing orders to monitor and change dressed as needed. Was endorsed that IV access was reinforced today by Doctor Sterling. This IV access is currently being used for Dialysis. Was endorsed to Ari OLMOS that patient received dialysis today, no fluid was removed. Patient is to have Tunnel Catheter Placement tomorrow, consent to be obtained. Patient to be NPO at midnight. Patient is noted to have right forearm 20 derrick IV access with fluids running per MD orders. Patient is noted to have indwelling Torres catheter draining clear yellow urine. Bed is locked, alarmed, and in lowest position. Call light in reach. Will continue to follow plan of care.
[2020-01-12] MEDS: Dyna-Hex 2% Top Sol 2oz TOPIC SCH (20:34)
--- NOTE | 2020-01-12 21:17 | NUR ---
NURSE NOTES: Right hand noted to be swollen. IV appears to be infiltrated. Ari OLMOS stopped infusion, removed current IV access site. Ari OLMOS obtained new IV access, 20 derrick in left AC, and continued fluids per MD orders.
--- NOTE | 2020-01-12 23:15 | Psychiatric Progress Note ---
Psychiatry Progress Note Psychiatry Progress Note Medications Current Medications Medications (Trade) Dose Ordered Sig/Jamal Route PRN Reason Start Time Stop Time Status Last Admin Dose Admin Ceftriaxone Sodium 1 gm/ Dextrose 55 ml @ 110 mls/hr Q24H IVPB 01/09/20 08:00 01/16/20 07:59 01/12/20 08:55 Chlorhexidine Gluconate (Jen-Hex 2%) 1 applic DAILY@2000 TOPIC 01/10/20 20:00 04/09/20 19:59 01/12/20 20:34 Dextrose (Dextrose 50%) 25 ml Q30M PRN IV Hypoglycemia 01/08/20 04:15 04/07/20 04:14 01/09/20 12:09 Dextrose (Dextrose 50%) 50 ml Q30M PRN IV Hypoglycemia 01/08/20 04:15 04/07/20 04:14 Dextrose/Sodium Chloride 1,000 ml @ 50 mls/hr Q20H IV 01/10/20 08:00 02/09/20 07:59 01/11/20 05:20 Docusate Sodium (Colace) 100 mg THREE TIMES A DAY ORAL 01/09/20 18:00 02/08/20 17:59 01/12/20 08:56 Epoetin Andre (Epoetin Andre(ESRD on dialysis)) 6,000 unit THU-THU-THU SUBQ 01/11/20 21:00 04/10/20 20:59 01/11/20 21:22 Insulin Aspart (NovoLOG) BEFORE MEALS AND HS SUBQ 01/08/20 06:30 04/07/20 06:29 01/12/20 20:35 Mirtazapine (Remeron) 7.5 mg QHS PRN ORAL insomnia 01/10/20 00:30 04/09/20 00:29 Ondansetron HCl (Zofran) 4 mg Q6H PRN IVP Nausea & Vomiting 01/12/20 16:30 02/11/20 16:29 01/12/20 16:23 Pantoprazole (Protonix) 40 mg EVERY 12 HOURS IVP 01/10/20 09:00 02/09/20 08:59 01/12/20 20:34 Tamsulosin HCl (Flomax) 0.4 mg BID ORAL 01/10/20 13:00 02/08/20 20:59 01/11/20 15:49 Neurological/Psychiatric: Reports: anxiety, depressed; Denies: no symptoms, emotional problems, headache, numbness, paresthesia, pre-existing deficit, seizure, tingling, tremors, weakness, other Allergies: Coded Allergies: No Known Allergies (Unverified , 04/21/18) Objective Data Height (Feet): 5 Height (Inches): 4.00 Weight (Pounds): 99 General Appearance: no apparent distress Additional Comments: is alert and oriented times self, place, and situation. Mood is dysphoric. Affect is constricted, congruent with mood. Thought process is concrete. Thought content, no suicidal or homicidal ideation. Cognition is impaired Insight and judgment, fair. Assessment/Plan Assessment/Plan: ASSESSMENT: [place] I Depressive disorder. [place] II Deferred. PLAN: 1. The patient has capacity to sign consent. 2. Provide the patient with reality orientation and supportive therapy. Harry Lucia MD Jan 12, 2020 23:15
--- NOTE | 2020-01-12 23:57 | Cardiology Progress Note ---
Assessment/Plan Assessment/Plan 1. Sinus bradycardia, possibly due to hypothermia, no cardiac intervention is required at this time. 2. Profound anemia, status post blood transfusion. 3. Mild pulmonary hypertension, 2D echocardiography in April 2018 had showed normal LV systolic and diastolic function. Subjective Subjective No cardiac events reported. Objective Last 24 Hour Vital Signs Date Time Temp Pulse Resp B/P (MAP) Pulse Ox O2 Delivery O2 Flow Rate FiO2 01/12/20 20:00 98.1 83 20 115/74 (88) 98 01/12/20 16:00 97.0 60 18 111/56 (74) 97 01/12/20 13:35 97.4 46 16 127/61 100 Nasal Cannula 3 01/12/20 13:25 45 14 115/62 100 Nasal Cannula 3 01/12/20 13:20 47 15 106/58 100 Simple Mask 6 01/12/20 13:15 43 11 100/56 100 Simple Mask 10 01/12/20 13:10 44 11 89/56 100 Simple Mask 10 01/12/20 13:05 42 11 83/55 100 Simple Mask 10 01/12/20 13:05 46 18 100 01/12/20 13:04 42 16 100 01/12/20 12:58 97.2 42 12 68/39 100 Simple Mask 10 01/12/20 12:00 97.9 58 20 148/66 (93) 99 01/12/20 08:00 98.2 63 20 137/73 (94) 99 01/12/20 04:00 98.3 63 20 136/80 (98) 98 01/12/20 00:00 98.1 58 20 134/68 (90) 98 Intake and Output 01/11/20 01/12/20 19:00 07:00 Intake Total 300 ml Output Total 800 ml 200 ml Balance -500 ml -200 ml Intake Oral 300 ml Output Urine Total 800 ml 200 ml # Voids 1 # Bowel Movements 1 3 Laboratory Tests Test 01/12/20 08:25 01/12/20 11:54 01/12/20 16:58 01/12/20 20:21 White Blood Count 8.1 K/UL (4.8-10.8) Red Blood Count 2.59 M/UL (4.70-6.10) L Hemoglobin 8.0 G/DL (14.2-18.0) L Hematocrit 23.7 % (42.0-52.0) L Mean Corpuscular Volume 91 FL (80-99) Mean Corpuscular Hemoglobin 30.9 PG (27.0-31.0) Mean Corpuscular Hemoglobin Concent 33.8 G/DL (32.0-36.0) Red Cell Distribution Width 14.2 % (11.6-14.8) Platelet Count 96 K/UL (150-450) L Mean Platelet Volume 7.3 FL (6.5-10.1) Neutrophils (%) (Auto) % (45.0-75.0) Lymphocytes (%) (Auto) % (20.0-45.0) Monocytes (%) (Auto) % (1.0-10.0) Eosinophils (%) (Auto) % (0.0-3.0) Basophils (%) (Auto) % (0.0-2.0) Differential Total Cells Counted 100 Neutrophils % (Manual) 85 % (45-75) H Lymphocytes % (Manual) 9 % (20-45) L Monocytes % (Manual) 6 % (1-10) Eosinophils % (Manual) 0 % (0-3) Basophils % (Manual) 0 % (0-2) Band Neutrophils 0 % (0-8) Platelet Estimate Decreased L Platelet Morphology Normal Red Blood Cell Morphology Normal Sodium Level 137 MMOL/L (136-145) Potassium Level 3.7 MMOL/L (3.5-5.1) Chloride Level 106 MMOL/L (98-107) Carbon Dioxide Level 21 MMOL/L (21-32) Anion Gap 10 mmol/L (5-15) Blood Urea Nitrogen 64 mg/dL (7-18) H Creatinine 6.0 MG/DL (0.55-1.30) H Estimat Glomerular Filtration Rate 9.5 mL/min (>60) Glucose Level 107 MG/DL (74-106) H Calcium Level 7.6 MG/DL (8.5-10.1) L Total Bilirubin 0.4 MG/DL (0.2-1.0) Aspartate Amino Transf (AST/SGOT) 14 U/L (15-37) L Alanine Aminotransferase (ALT/SGPT) 13 U/L (12-78) Alkaline Phosphatase 81 U/L (46-116) Total Protein 6.0 G/DL (6.4-8.2) L Albumin 2.1 G/DL (3.4-5.0) L Globulin 3.9 g/dL Albumin/Globulin Ratio 0.5 (1.0-2.7) L Hepatitis B Surface Antigen Pending Hepatitis B Surface Antibody, Quant Pending Hepatitis C Antibody Pending POC Whole Blood Glucose 108 MG/DL (74-106) H 83 MG/DL (74-106) 233 MG/DL (74-106) H Objective HEENT: Atraumatic and normocephalic. Anicteric. Pupils are equal, round, and reactive to light and accommodation. Extraocular muscles are intact. NECK: JVP less than 5 cm. No carotid bruit. Carotid upstrokes 2+ bilaterally. CARDIOVASCULAR: Normal S1, S2. Regular rate and rhythm, bradycardic. No murmurs, gallops, or rubs. PMI is at fourth intercostal space, midclavicular line. LUNGS: Clear to auscultation bilaterally. ABDOMEN: No hepatosplenomegaly. Soft and nondistended. Positive bowel sounds. EXTREMITIES: No evidence of edema, clubbing or cyanosis. Alvaro Hargrove MD Jan 12, 2020 23:57
[2020-01-13] VITALS (10 sets, daily range): BP systolic 106–126; BP diastolic 54–86
--- NOTE | 2020-01-13 05:49 | NUR ---
NURSE NOTES: Incontinent care preformed. Patient found to have 4th soft formed bowl movement. Wound care done, dressing changed and new one applied.
[2020-01-13] MEDS: NovoLOG Insulin Flexpen SUBQ SCH ×4 (06:13→22:08)
[2020-01-13 06:37] LABS: HEMATOCRIT 26.1 % (42.0-52.0); HEMOGLOBIN 8.9 G/DL (14.2-18.0); MEAN CORPUSCULAR VOLUME 91 FL (80-99); PLATELET COUNT 106 K/UL (150-450); RED BLOOD COUNT 2.86 M/UL (4.70-6.10); RED CELL DISTRIBUTION WIDTH 14.7 % (11.6-14.8); WHITE BLOOD COUNT 13.7 K/UL (4.8-10.8)
[2020-01-13 07:01] LABS: ALBUMIN 2.2 G/DL (3.4-5.0); ALBUMIN/GLOBULIN RATIO 0.6 (1.0-2.7); BILIRUBIN,TOTAL 0.5 MG/DL (0.2-1.0); CALCIUM 7.5 MG/DL (8.5-10.1); CREATININE 3.9 MG/DL (0.55-1.30); PHOSPHORUS 3.4 MG/DL (2.5-4.9)
--- NOTE | 2020-01-13 07:01 | Pulmonology Progress Note ---
Subjective ROS Limited/Unobtainable: No Interval Events: None new Constitutional: Reports: no symptoms HEENT: Repors: no symptoms Respiratory: Reports: no symptoms Cardiovascular: Reports: no symptoms Gastrointestinal/Abdominal: Reports: no symptoms Genitourinary: Reports: no symptoms Allergies: Coded Allergies: No Known Allergies (Unverified , 04/21/18) Objective Last 24 Hour Vital Signs Date Time Temp Pulse Resp B/P (MAP) Pulse Ox O2 Delivery O2 Flow Rate FiO2 01/13/20 04:00 97.5 69 22 123/57 (79) 96 01/13/20 00:00 98.6 73 20 121/59 (79) 98 01/12/20 20:00 98.1 83 20 115/74 (88) 98 01/12/20 16:00 97.0 60 18 111/56 (74) 97 01/12/20 13:35 97.4 46 16 127/61 100 Nasal Cannula 3 01/12/20 13:25 45 14 115/62 100 Nasal Cannula 3 01/12/20 13:20 47 15 106/58 100 Simple Mask 6 01/12/20 13:15 43 11 100/56 100 Simple Mask 10 01/12/20 13:10 44 11 89/56 100 Simple Mask 10 01/12/20 13:05 42 11 83/55 100 Simple Mask 10 01/12/20 13:05 46 18 100 01/12/20 13:04 42 16 100 01/12/20 12:58 97.2 42 12 68/39 100 Simple Mask 10 01/12/20 12:00 97.9 58 20 148/66 (93) 99 01/12/20 08:00 98.2 63 20 137/73 (94) 99 Intake and Output 01/12/20 01/13/20 19:00 07:00 Intake Total 1435 ml 550 ml Output Total 0 ml 350 ml Balance 1435 ml 200 ml Intake Oral 480 ml IV Total 955 ml 550 ml Output Urine Total 350 ml Estimated Blood Loss 0 ml # Bowel Movements 4 General Appearance: no acute distress HEENT: normocephalic Respiratory: chest wall non-tender, lungs clear Cardiovascular: normal peripheral pulses Abdomen: normal bowel sounds Laboratory Tests 01/12/20 08:25: White Blood Count 8.1, Red Blood Count 2.59L, Hemoglobin 8.0L, Hematocrit 23.7L, Mean Corpuscular Volume 91, Mean Corpuscular Hemoglobin 30.9, Mean Corpuscular Hemoglobin Concent 33.8, Red Cell Distribution Width 14.2, Platelet Count 96L, Mean Platelet Volume 7.3, Neutrophils (%) (Auto) , Lymphocytes (%) (Auto) , Monocytes (%) (Auto) , Eosinophils (%) (Auto) , Basophils (%) (Auto) , Differen tial Total Cells Counted 100, Neutrophils % (Manual) 85H, Lymphocytes % (Manual) 9L, Monocytes % (Manual) 6, Eosinophils % (Manual) 0, Basophils % (Manual) 0, Band Neutrophils 0, Platelet Estimate DecreasedL, Platelet Morphology Normal, Red Blood Cell Morphology Normal, Sodium Level 137, Potassium Level 3.7, Chloride Level 106, Carbon Dioxide Level 21, Anion Gap 10, Blood Urea Nitrogen 64H, Creatinine 6.0H, Estimat Glomerular Filtration Rate 9.5, Glucose Level 107H , Calcium Level 7.6L, Total Bilirubin 0.4, Aspartate Amino Transf (AST/SGOT) 14L , Alanine Aminotransferase (ALT/SGPT) 13, Alkaline Phosphatase 81, Total Protein 6.0L, Albumin 2.1L, Globulin 3.9, Albumin/Globulin Ratio 0.5L, Hepatitis B Surface Antigen [Pending], Hepatitis B Surface Antibody, Quant [Pending], Hepatitis C Antibody [Pending] 01/12/20 11:54: POC Whole Blood Glucose 108H 01/12/20 16:58: POC Whole Blood Glucose 83 01/12/20 20:21: POC Whole Blood Glucose 233H 01/13/20 05:35: White Blood Count 13.7#H, Red Blood Count 2.86L, Hemoglobin 8.9L, Hematocrit 26.1L, Mean Corpuscular Volume 91, Mean Corpuscular Hemoglobin 31.2H, Mean Corpuscular Hemoglobin Concent 34.2, Red Cell Distribution Width 14.7, Platelet Count 106L, Mean Platelet Volume 7.3, Neutrophils (%) (Auto) , Lymphocytes (%) (Auto) , Monocytes (%) (Auto) , Eosinophils (%) (Auto) , Basophils (%) (Auto) , Neutrophils % (Manual) [Pending], Lymphocytes % (Manual) [Pending], Platelet Estimate [Pending], Platelet Morphology [Pending], Sodium Level [Pending], Potassium Level [Pending], Chloride Level [Pending], Carbon Dioxide Level [Pending], Blood Urea Nitrogen [Pending], Creatinine [Pending], Estimat Glomerular Filtration Rate [Pending], Glucose Level [Pending], Calcium Level [Pending], Phosphorus Level [Pending], Magnesium Level [Pending], Total Bilirubin [Pending], Aspartate Amino Transf (AST/SGOT) [Pending], Alanine Aminotransferase (ALT/SGPT) [Pending], Alkaline Phosphatase [Pending], C- Reactive Protein, Quantitative [Pending], Pro-B-Type Natriuretic Peptide [Pending], Total Protein [Pending], Albumin [Pending], Globulin [Pending] 01/13/20 06:00: POC Whole Blood Glucose 120H Current Medications Medications (Trade) Dose Ordered Sig/Jamal Route PRN Reason Start Time Stop Time Status Last Admin Dose Admin Ceftriaxone Sodium 1 gm/ Dextrose 55 ml @ 110 mls/hr Q24H IVPB 01/09/20 08:00 01/16/20 07:59 01/12/20 08:55 Chlorhexidine Gluconate (Jen-Hex 2%) 1 applic DAILY@2000 TOPIC 01/10/20 20:00 04/09/20 19:59 01/12/20 20:34 Dextrose (Dextrose 50%) 25 ml Q30M PRN IV Hypoglycemia 01/08/20 04:15 04/07/20 04:14 01/09/20 12:09 Dextrose (Dextrose 50%) 50 ml Q30M PRN IV Hypoglycemia 01/08/20 04:15 04/07/20 04:14 Dextrose/Sodium Chloride 1,000 ml @ 50 mls/hr Q20H IV 01/10/20 08:00 02/09/20 07:59 01/11/20 05:20 Docusate Sodium (Colace) 100 mg THREE TIMES A DAY ORAL 01/09/20 18:00 02/08/20 17:59 01/12/20 08:56 Epoetin Andre (Epoetin Andre(ESRD on dialysis)) 6,000 unit THU-WED-THU SUBQ 01/11/20 21:00 04/10/20 20:59 01/11/20 21:22 Insulin Aspart (NovoLOG) BEFORE MEALS AND HS SUBQ 01/08/20 06:30 04/07/20 06:29 01/12/20 20:35 Mirtazapine (Remeron) 7.5 mg QHS PRN ORAL insomnia 01/10/20 00:30 04/09/20 00:29 Ondansetron HCl (Zofran) 4 mg Q6H PRN IVP Nausea & Vomiting 01/12/20 16:30 02/11/20 16:29 01/12/20 16:23 Pantoprazole (Protonix) 40 mg EVERY 12 HOURS IVP 01/10/20 09:00 02/09/20 08:59 01/12/20 20:34 Tamsulosin HCl (Flomax) 0.4 mg BID ORAL 01/10/20 13:00 02/08/20 20:59 01/11/20 15:49 Assessment/Plan Assessment/Plan ASSESSMENT AND PLAN: 1. Sinus bradycardia. 2. Profound anemia, status post blood transfusion. 3. Mild pulmonary hypertension 4. Probable pneumonia Agree with broad-spectrum antibiotics. saturating well on RA vs low flow O2 now S/p hemodialysis Nataliya Mclaughlin Omar Syed MD Jan 13, 2020 07:01
[2020-01-13 07:06] LABS: POTASSIUM 3.4 MMOL/L (3.5-5.1)
--- NOTE | 2020-01-13 07:29 | NUR ---
NURSE HAND-OFF: Important Events on Shift: New IV access obtained. Held insulin this morning due to normal blood glucose. patient NPO for procedure, consent obtained. patient had 4 normal bowl movements. Patient Status: full code Diet: NPO Pending Orders: Tunnel Catheter placement. Pending Results/Labs:none Pending MD notification:none Latest Vital Signs: Temperature 97.5 , Pulse 69 , B/P 123 /57 , Respiratory Rate 22 , O2 SAT 96 , Nasal Cannula, Vital Sign Comment: within normal limits. Latest Mclean Fall Score: 85 Fall Risk: High Risk Safety Measures: Call light Within Reach, Bed Alarm Zone 2, Side Rails Side Rails x3, Bed position Low and Locked. Fall Precautions: Yellow Socks Yellow Gown Door Sign Patient Fall Education Report given to Griffin OLMOS.
--- NOTE | 2020-01-13 08:04 | NUR ---
NURSE NOTES:received am report. pt is in the bed awake and verbally responsive. pt is on NPO, awaiting catheter placement for dialysis. f/c inplace, drains pale yellow urine. denies any bladder pain and spasms. no acute distress noted at this time. call light is placed within reach, will follow plan of care.
[2020-01-13] MEDS: cefTRIAXone 1 GM in D5W 55 ML IVPB SCH (08:22)
[2020-01-13] MEDS: Pantoprazole Inj IVP SCH ×2 (08:22→22:01)
[2020-01-13] MEDS: Docusate 100mg cap ORAL SCH ×3 (08:41→17:30)
[2020-01-13] MEDS: Tamsulosin 0.4mg cap ORAL SCH ×2 (08:41→17:30)
--- NOTE | 2020-01-13 09:13 | General Progress Note ---
Subjective ROS Limited/Unobtainable: Yes Allergies: Coded Allergies: No Known Allergies (Unverified , 04/21/18) Objective Last 24 Hour Vital Signs Date Time Temp Pulse Resp B/P (MAP) Pulse Ox O2 Delivery O2 Flow Rate FiO2 01/13/20 08:00 97.8 66 20 122/57 (78) 96 01/13/20 04:00 97.5 69 22 123/57 (79) 96 01/13/20 00:00 98.6 73 20 121/59 (79) 98 01/12/20 20:00 98.1 83 20 115/74 (88) 98 01/12/20 16:00 97.0 60 18 111/56 (74) 97 01/12/20 13:35 97.4 46 16 127/61 100 Nasal Cannula 3 01/12/20 13:25 45 14 115/62 100 Nasal Cannula 3 01/12/20 13:20 47 15 106/58 100 Simple Mask 6 01/12/20 13:15 43 11 100/56 100 Simple Mask 10 01/12/20 13:10 44 11 89/56 100 Simple Mask 10 01/12/20 13:05 42 11 83/55 100 Simple Mask 10 01/12/20 13:05 46 18 100 01/12/20 13:04 42 16 100 01/12/20 12:58 97.2 42 12 68/39 100 Simple Mask 10 01/12/20 12:00 97.9 58 20 148/66 (93) 99 Intake and Output 01/12/20 01/13/20 19:00 07:00 Intake Total 1435 ml 550 ml Output Total 0 ml 350 ml Balance 1435 ml 200 ml Intake Oral 480 ml IV Total 955 ml 550 ml Output Urine Total 350 ml Estimated Blood Loss 0 ml # Bowel Movements 4 Laboratory Tests 01/12/20 11:54: POC Whole Blood Glucose 108H 01/12/20 16:58: POC Whole Blood Glucose 83 01/12/20 20:21: POC Whole Blood Glucose 233H 01/13/20 05:35: White Blood Count 13.7#H, Red Blood Count 2.86L, Hemoglobin 8.9L, Hematocrit 26.1L, Mean Corpuscular Volume 91, Mean Corpuscular Hemoglobin 31.2H, Mean Corpuscular Hemoglobin Concent 34.2, Red Cell Distribution Width 14.7, Platelet Count 106L, Mean Platelet Volume 7.3, Neutrophils (%) (Auto) , Lymphocytes (%) (Auto) , Monocytes (%) (Auto) , Eosinophils (%) (Auto) , Basophils (%) (Auto) , Neutrophils % (Manual) [Pending], Lymphocytes % (Manual) [Pending], Platelet Estimate [Pending], Platelet Morphology [Pending], Sodium Level 141, Potassium Level 3.4L, Chloride Level 107, Carbon Dioxide Level 27, Anion Gap 7, Blood Urea Nitrogen 34H, Creatinine 3.9H, Estimat Glomerular Filtration Rate 15.6, Glucose Level 72L, Calcium Level 7.5L, Phosphorus Level 3.4, Magnesium Level 1.9, Total Bilirubin 0.5, Aspartate Amino Transf (AST/SGOT) 19, Alanine Aminotransferase (ALT/SGPT) 11L, Alkaline Phosphatase 92, C-Reactive Protein, Quantitative 14.1H, Pro-B-Type Natriuretic Peptide [id number], Total Protein 5.8L, Albumin 2.2L, Globulin 3.6, Albumin/Globulin Ratio 0.6L 01/13/20 06:00: POC Whole Blood Glucose 120H Height (Feet): 5 Height (Inches): 4.00 Weight (Pounds): 99 General Appearance: alert EENT: normal ENT inspection Neck: supple Cardiovascular: normal rate Respiratory/Chest: decreased breath sounds Abdomen: hypoactive bowel sounds Extremities: non-tender Assessment/Plan Problem List: (1) Gallstones ICD Codes: K80.20 - Calculus of gallbladder without cholecystitis without obstruction SNOMED: 282126032 (2) Renal failure ICD Codes: N19 - Unspecified kidney failure SNOMED: 97670901 Qualifiers: Qualified Codes: N17.9 - Acute kidney failure, unspecified (3) Anemia ICD Codes: D64.9 - Anemia, unspecified SNOMED: 822663136 Qualifiers: Qualified Codes: D64.9 - Anemia, unspecified (4) Diabetes ICD Codes: E11.9 - Type 2 diabetes mellitus without complications SNOMED: 98751376 Assessment/Plan: s/p EGD and colonoscopy s/p ERCP and stenting needs ercp and stent removal in 8-12 weeks fu surg recs HD per nephrology fu labs León Lambert MD Jan 13, 2020 09:13
[2020-01-13] MEDS ORDERED: Lidocaine 2% 20mg/ml/Epi 0.005mg/ml 20ml vial INJ SCH (09:15)
[2020-01-13] MEDS ORDERED: Heparin1,000 units/500ml Premix(Conc:2 units/ml) IV SCH (09:15)
--- NOTE | 2020-01-13 10:18 | Hematology/Onc Progress Note ---
Assessment/Plan Assessment/Plan Assessment and Recs # Anemia of chronic disease - likely multifactorial, with sepsis, poorly controlled DM2, and esrd --> Anemia workup has been ordered, reviewed --> No evidence of hemolysis is noted, peripheral smear has been reviewed. --> Hgb goal >7. Transfuse prn. --> Epogen started sq --> hgb 5-->5.9-->9.4->9.7-->8.9 ==> hold off on iron --> occult ++ seen by Gi --> colo for 01/10 # Thrombocytopenia likely due to liver disease/cirrhosis-->resolved, also now with sepsis/pna, elev la --> Medications have been reviewed --> if the plt count less than 10k, transfuse immediately. If less than 20k and febrile, transfuse --> If less than 50k and bleeding, transfuse. If neurosurgical bleed, transfuse as well --> plt 168->128-->100-->102-->106 --> us abd with cholelithiasis # Sepsis - on fluids and abx --> iamging as needed --> consider abx [email or web address] # Dehydration --> per renal # Choledocholithiasis with acute cholecystitis --> ERCP when stable -> seen by gi # Dvt ppx heparin sq The timing of this note does not necessarily reflect the time of the patient was seen. Greatly appreciate consultation! Subjective Constitutional: Denies: no symptoms, chills, fever, malaise, weakness, other HEENT: Denies: no symptoms, eye pain, blurred vision, tearing, double vision, ear pain, ear discharge, nose pain, nose congestion, throat pain, throat swelling, mouth pain, mouth swelling, other Cardiovascular: Denies: no symptoms, chest pain, edema, irregular heart rate, lightheadedness, palpitations, syncope, other Respiratory: Denies: no symptoms, cough, shortness of breath, SOB with excertion, SOB at rest, sputum, wheezing, other Gastrointestinal/Abdominal: Denies: no symptoms, abdomen distended, abdominal pain, black stools, tarry stools, blood in stool, constipated, diarrhea, difficulty swallowing, nausea, poor appetite, poor fluid intake, rectal bleeding, vomiting, other Genitourinary: Denies: no symptoms, burning, discharge, frequency, flank pain, hematuria, incontinence, pain, urgency, other Neurologic/Psychiatric: Denies: no symptoms, anxiety, depressed, emotional problems, headache, numbness, paresthesia, pre-existing deficit, seizure, tingling, tremors, weakness, other Endocrine: Denies: no symptoms, excessive sweating, flushing, intolerance to cold, intolerance to heat, increased hunger, increased thirst, increased urine, unexplained weight gain, unexplained weight loss, other Allergies: Coded Allergies: No Known Allergies (Unverified , 04/21/18) Subjective 01/09 labs reviewed, hgb low, on epo and hd today 01/10 for colo today, no bleeding, meds reviewed, bowel prep+ 01/11 for hd today, no bleeding, labs noted, hgb stable 01/12 labs reviewed, meds noted, no night sweats, improved plt Objective Objective Current Medications Medications (Trade) Dose Ordered Sig/Jamal Route PRN Reason Start Time Stop Time Status Last Admin Dose Admin Ceftriaxone Sodium 1 gm/ Dextrose 55 ml @ 110 mls/hr Q24H IVPB 01/09/20 08:00 01/16/20 07:59 01/13/20 08:22 Chlorhexidine Gluconate (Jen-Hex 2%) 1 applic DAILY@1999 TOPIC 01/10/20 20:00 04/09/20 19:59 01/12/20 20:34 Dextrose (Dextrose 50%) 25 ml Q30M PRN IV Hypoglycemia 01/08/20 04:15 04/07/20 04:14 01/09/20 12:09 Dextrose (Dextrose 50%) 50 ml Q30M PRN IV Hypoglycemia 01/08/20 04:15 04/07/20 04:14 Dextrose/Sodium Chloride 1,000 ml @ 50 mls/hr Q20H IV 01/10/20 08:00 02/09/20 07:59 01/11/20 05:20 Docusate Sodium (Colace) 100 mg THREE TIMES A DAY ORAL 01/09/20 18:00 02/08/20 17:59 01/13/20 08:41 Epoetin Andre (Epoetin Andre(ESRD on dialysis)) 6,000 unit THU-THU-THU SUBQ 01/11/20 21:00 04/10/20 20:59 01/11/20 21:22 Heparin Sodium/ Sodium Chloride (Heparin 1000 units/500ml Premix) 1,000 unit ONCE IV 01/13/20 09:15 01/13/20 23:59 Insulin Aspart (NovoLOG) BEFORE MEALS AND HS SUBQ 01/08/20 06:30 04/07/20 06:29 01/12/20 20:35 Lidocaine/ Epinephrine (Lidocaine 2%/ Epi 20ml) 20 ml ONCE INJ 01/13/20 09:15 01/13/20 23:59 Mirtazapine (Remeron) 7.5 mg QHS PRN ORAL insomnia 01/10/20 00:30 04/09/20 00:29 Ondansetron HCl (Zofran) 4 mg Q6H PRN IVP Nausea & Vomiting 01/12/20 16:30 02/11/20 16:29 01/12/20 16:23 Pantoprazole (Protonix) 40 mg EVERY 12 HOURS IVP 01/10/20 09:00 02/09/20 08:59 01/13/20 08:22 Tamsulosin HCl (Flomax) 0.4 mg BID ORAL 01/10/20 13:00 02/08/20 20:59 01/13/20 08:41 Last 24 Hour Vital Signs Date Time Temp Pulse Resp B/P (MAP) Pulse Ox O2 Delivery O2 Flow Rate FiO2 01/13/20 08:00 97.8 66 20 122/57 (78) 96 01/13/20 04:00 97.5 69 22 123/57 (79) 96 01/13/20 00:00 98.6 73 20 121/59 (79) 98 01/12/20 20:00 98.1 83 20 115/74 (88) 98 01/12/20 16:00 97.0 60 18 111/56 (74) 97 01/12/20 13:35 97.4 46 16 127/61 100 Nasal Cannula 3 01/12/20 13:25 45 14 115/62 100 Nasal Cannula 3 01/12/20 13:20 47 15 106/58 100 Simple Mask 6 01/12/20 13:15 43 11 100/56 100 Simple Mask 10 01/12/20 13:10 44 11 89/56 100 Simple Mask 10 01/12/20 13:05 42 11 83/55 100 Simple Mask 10 01/12/20 13:05 46 18 100 01/12/20 13:04 42 16 100 01/12/20 12:58 97.2 42 12 68/39 100 Simple Mask 10 01/12/20 12:00 97.9 58 20 148/66 (93) 99 01/12/20 08:00 98.2 63 20 137/73 (94) 99 01/12/20 04:00 98.3 63 20 136/80 (98) 98 01/12/20 00:00 98.1 58 20 134/68 (90) 98 01/11/20 23:10 Room Air 01/11/20 20:00 97.6 64 18 149/74 (99) 98 01/11/20 16:06 97.0 86 18 124/71 (88) 98 01/11/20 16:00 Room Air 01/11/20 13:00 97.8 56 17 136/75 97 Nasal Cannula 3 01/11/20 12:50 55 16 130/70 96 Nasal Cannula 3 01/11/20 12:40 51 16 133/71 98 Nasal Cannula 3 01/11/20 12:36 53 14 98 01/11/20 12:35 51 14 135/75 98 Nasal Cannula 3 01/11/20 12:33 52 14 100 01/11/20 12:30 51 15 129/76 97 Nasal Cannula 3 01/11/20 12:25 97.0 51 14 132/74 100 Nasal Cannula 3 01/11/20 12:00 Room Air 01/11/20 12:00 77 Intake and Output 01/12/20 01/13/20 19:00 07:00 Intake Total 1435 ml 550 ml Output Total 0 ml 350 ml Balance 1435 ml 200 ml Intake Oral 480 ml IV Total 955 ml 550 ml Output Urine Total 350 ml Estimated Blood Loss 0 ml # Bowel Movements 4 Labs Test 01/10/20 11:50 01/10/20 16:22 01/10/20 21:28 01/11/20 03:56 POC Whole Blood Glucose 96 MG/DL (74-106) 89 MG/DL (74-106) White Blood Count 7.9 K/UL (4.8-10.8) Red Blood Count 2.91 M/UL (4.70-6.10) Hemoglobin 8.9 G/DL (14.2-18.0) Hematocrit 25.7 % (42.0-52.0) Mean Corpuscular Volume 88 FL (80-99) Mean Corpuscular Hemoglobin 30.5 PG (27.0-31.0) Mean Corpuscular Hemoglobin Concent 34.5 G/DL (32.0-36.0) Red Cell Distribution Width 14.1 % (11.6-14.8) Platelet Count 102 K/UL (150-450) Mean Platelet Volume 7.5 FL (6.5-10.1) Neutrophils (%) (Auto) 77.3 % (45.0-75.0) Lymphocytes (%) (Auto) 16.0 % (20.0-45.0) Monocytes (%) (Auto) 5.9 % (1.0-10.0) Eosinophils (%) (Auto) 0.3 % (0.0-3.0) Basophils (%) (Auto) 0.5 % (0.0-2.0) Sodium Level 135 MMOL/L (136-145) Potassium Level 3.4 MMOL/L (3.5-5.1) Chloride Level 102 MMOL/L (98-107) Carbon Dioxide Level 21 MMOL/L (21-32) Anion Gap 12 mmol/L (5-15) Blood Urea Nitrogen 61 mg/dL (7-18) Creatinine 5.5 MG/DL (0.55-1.30) Estimat Glomerular Filtration Rate 10.5 mL/min (>60) Glucose Level 87 MG/DL (74-106) Uric Acid 3.6 MG/DL (2.6-7.2) Calcium Level 7.2 MG/DL (8.5-10.1) Phosphorus Level 5.5 MG/DL (2.5-4.9) Magnesium Level 2.1 MG/DL (1.8-2.4) Total Bilirubin 0.5 MG/DL (0.2-1.0) Aspartate Amino Transf (AST/SGOT) 18 U/L (15-37) Alanine Aminotransferase (ALT/SGPT) 14 U/L (12-78) Alkaline Phosphatase 90 U/L (46-116) C-Reactive Protein, Quantitative 11.3 mg/dL (0.00-0.90) Total Protein 5.5 G/DL (6.4-8.2) Albumin 2.1 G/DL (3.4-5.0) Globulin 3.4 g/dL Albumin/Globulin Ratio 0.6 (1.0-2.7) Test 01/11/20 05:57 01/11/20 13:23 01/11/20 13:47 01/11/20 13:59 POC Whole Blood Glucose 83 MG/DL (74-106) 68 MG/DL (74-106) 69 MG/DL (74-106) 95 MG/DL (74-106) Test 01/11/20 17:02 01/11/20 19:54 01/12/20 08:25 01/12/20 11:54 POC Whole Blood Glucose 143 MG/DL (74-106) 149 MG/DL (74-106) 108 MG/DL (74-106) White Blood Count 8.1 K/UL (4.8-10.8) Red Blood Count 2.59 M/UL (4.70-6.10) Hemoglobin 8.0 G/DL (14.2-18.0) Hematocrit 23.7 % (42.0-52.0) Mean Corpuscular Volume 91 FL (80-99) Mean Corpuscular Hemoglobin 30.9 PG (27.0-31.0) Mean Corpuscular Hemoglobin Concent 33.8 G/DL (32.0-36.0) Red Cell Distribution Width 14.2 % (11.6-14.8) Platelet Count 96 K/UL (150-450) Mean Platelet Volume 7.3 FL (6.5-10.1) Neutrophils (%) (Auto) % (45.0-75.0) Lymphocytes (%) (Auto) % (20.0-45.0) Monocytes (%) (Auto) % (1.0-10.0) Eosinophils (%) (Auto) % (0.0-3.0) Basophils (%) (Auto) % (0.0-2.0) Differential Total Cells Counted 100 Neutrophils % (Manual) 85 % (45-75) Lymphocytes % (Manual) 9 % (20-45) Monocytes % (Manual) 6 % (1-10) Eosinophils % (Manual) 0 % (0-3) Basophils % (Manual) 0 % (0-2) Band Neutrophils 0 % (0-8) Platelet Estimate Decreased Platelet Morphology Normal Red Blood Cell Morphology Normal Sodium Level 137 MMOL/L (136-145) Potassium Level 3.7 MMOL/L (3.5-5.1) Chloride Level 106 MMOL/L (98-107) Carbon Dioxide Level 21 MMOL/L (21-32) Anion Gap 10 mmol/L (5-15) Blood Urea Nitrogen 64 mg/dL (7-18) Creatinine 6.0 MG/DL (0.55-1.30) Estimat Glomerular Filtration Rate 9.5 mL/min (>60) Glucose Level 107 MG/DL (74-106) Calcium Level 7.6 MG/DL (8.5-10.1) Total Bilirubin 0.4 MG/DL (0.2-1.0) Aspartate Amino Transf (AST/SGOT) 14 U/L (15-37) Alanine Aminotransferase (ALT/SGPT) 13 U/L (12-78) Alkaline Phosphatase 81 U/L (46-116) Total Protein 6.0 G/DL (6.4-8.2) Albumin 2.1 G/DL (3.4-5.0) Globulin 3.9 g/dL Albumin/Globulin Ratio 0.5 (1.0-2.7) Test 01/12/20 16:58 01/12/20 20:21 01/13/20 05:35 01/13/20 06:00 POC Whole Blood Glucose 83 MG/DL (74-106) 233 MG/DL (74-106) 120 MG/DL (74-106) White Blood Count 13.7 K/UL (4.8-10.8) Red Blood Count 2.86 M/UL (4.70-6.10) Hemoglobin 8.9 G/DL (14.2-18.0) Hematocrit 26.1 % (42.0-52.0) Mean Corpuscular Volume 91 FL (80-99) Mean Corpuscular Hemoglobin 31.2 PG (27.0-31.0) Mean Corpuscular Hemoglobin Concent 34.2 G/DL (32.0-36.0) Red Cell Distribution Width 14.7 % (11.6-14.8) Platelet Count 106 K/UL (150-450) Mean Platelet Volume 7.3 FL (6.5-10.1) Neutrophils (%) (Auto) % (45.0-75.0) Lymphocytes (%) (Auto) % (20.0-45.0) Monocytes (%) (Auto) % (1.0-10.0) Eosinophils (%) (Auto) % (0.0-3.0) Basophils (%) (Auto) % (0.0-2.0) Differential Total Cells Counted 100 Neutrophils % (Manual) 88 % (45-75) Lymphocytes % (Manual) 9 % (20-45) Monocytes % (Manual) 3 % (1-10) Eosinophils % (Manual) 0 % (0-3) Basophils % (Manual) 0 % (0-2) Band Neutrophils 0 % (0-8) Platelet Estimate Decreased Platelet Morphology Normal Hypochromasia 1+ Anisocytosis 1+ Sodium Level 141 MMOL/L (136-145) Potassium Level 3.4 MMOL/L (3.5-5.1) Chloride Level 107 MMOL/L (98-107) Carbon Dioxide Level 27 MMOL/L (21-32) Anion Gap 7 mmol/L (5-15) Blood Urea Nitrogen 34 mg/dL (7-18) Creatinine 3.9 MG/DL (0.55-1.30) Estimat Glomerular Filtration Rate 15.6 mL/min (>60) Glucose Level 72 MG/DL (74-106) Calcium Level 7.5 MG/DL (8.5-10.1) Phosphorus Level 3.4 MG/DL (2.5-4.9) Magnesium Level 1.9 MG/DL (1.8-2.4) Total Bilirubin 0.5 MG/DL (0.2-1.0) Aspartate Amino Transf (AST/SGOT) 19 U/L (15-37) Alanine Aminotransferase (ALT/SGPT) 11 U/L (12-78) Alkaline Phosphatase 92 U/L (46-116) C-Reactive Protein, Quantitative 14.1 mg/dL (0.00-0.90) Pro-B-Type Natriuretic Peptide 66884 pg/mL (0-125) Total Protein 5.8 G/DL (6.4-8.2) Albumin 2.2 G/DL (3.4-5.0) Globulin 3.6 g/dL Albumin/Globulin Ratio 0.6 (1.0-2.7) Height (Feet): 5 Height (Inches): 4.00 Weight (Pounds): 99 Objective Physical Exam Vitals: reviewed General: GCS 15, thin, other - Cold, Chronically Ill - Cachectic Heent: dry mucus membranes, full range of motion, supple, no meningismus Respiratory: chest non-tender, lungs clear, normal breath sounds Cardiovascular: bradycardia, 2+ radial (R) Gastrointestinal: other - Spider habitus, decreased bowel sound Musculoskeletal: back normal, normal range of motion, no calf tenderness Neurologic: oriented - x 2 Psychiatric: mood/affect normal Skin: pallor - Sallow and cold Guero Hernandez MD Jan 13, 2020 10:18
--- NOTE | 2020-01-13 13:20 | Nephrology Progress Note ---
Assessment/Plan Problem List: (1) JONA (acute kidney injury) (2) Hyperkalemia (3) Anemia (4) Metabolic acidosis (5) Ureter obstruction (6) Failure to thrive Assessment Renal failure acute, superimposed on chronic Hyperkalemia Acidosis Presented with severe anemia on admission, transfused 3 units packed RBCs since admission. History of hypertension History of diabetes mellitus 01/09/2020----PATIENT NEED EMERGENCY LIFE SAVING DIALYSIS Plan January 12: Patient dialyzed yesterday. Due for tunneled catheter placement today. Continue dialysis as needed. Patient has a Torres catheter now. January 11: Patient due for dialysis today. Continue per GI management. Labs reviewed. Will arrange for tunneled dialysis catheter and outpatient dialysis center placement. Urological evaluation pending. January 10: Patient was dialyzed January 08. Is undergoing GI evaluation. Labs reviewed. Due for dialysis again tomorrow. Urological evaluation for bladder retention pending. Insertion of temporary non tunneled dialysis catheter followed by dialysis to correct acidosis hyperkalemia, done yesterday Continue per consultants Monitor electrolytes and renal parameters Hemodialysis as needed Urology evaluation for urinary retention Per orders Subjective ROS Limited/Unobtainable: No Constitutional: Reports: malaise Objective Objective Last 24 Hour Vital Signs Date Time Temp Pulse Resp B/P (MAP) Pulse Ox O2 Delivery O2 Flow Rate FiO2 01/13/20 12:00 97.4 67 20 110/54 (72) 96 01/13/20 08:00 97.8 66 20 122/57 (78) 96 01/13/20 04:00 97.5 69 22 123/57 (79) 96 01/13/20 00:00 98.6 73 20 121/59 (79) 98 01/12/20 20:00 98.1 83 20 115/74 (88) 98 01/12/20 16:00 97.0 60 18 111/56 (74) 97 01/12/20 13:35 97.4 46 16 127/61 100 Nasal Cannula 3 01/12/20 13:25 45 14 115/62 100 Nasal Cannula 3 01/12/20 13:20 47 15 106/58 100 Simple Mask 6 Intake and Output 01/12/20 01/13/20 19:00 07:00 Intake Total 1435 ml 550 ml Output Total 0 ml 350 ml Balance 1435 ml 200 ml Intake Oral 480 ml IV Total 955 ml 550 ml Output Urine Total 350 ml Estimated Blood Loss 0 ml # Bowel Movements 4 Current Medications Medications (Trade) Dose Ordered Sig/Jamal Route PRN Reason Start Time Stop Time Status Last Admin Dose Admin Ceftriaxone Sodium 1 gm/ Dextrose 55 ml @ 110 mls/hr Q24H IVPB 01/09/20 08:00 01/16/20 07:59 01/13/20 08:22 Chlorhexidine Gluconate (Jen-Hex 2%) 1 applic DAILY@2000 TOPIC 01/10/20 20:00 04/09/20 19:59 01/12/20 20:34 Dextrose (Dextrose 50%) 25 ml Q30M PRN IV Hypoglycemia 01/08/20 04:15 04/07/20 04:14 01/09/20 12:09 Dextrose (Dextrose 50%) 50 ml Q30M PRN IV Hypoglycemia 01/08/20 04:15 04/07/20 04:14 Dextrose/Sodium Chloride 1,000 ml @ 50 mls/hr Q20H IV 01/10/20 08:00 02/09/20 07:59 01/11/20 05:20 Docusate Sodium (Colace) 100 mg THREE TIMES A DAY ORAL 01/09/20 18:00 02/08/20 17:59 01/13/20 08:41 Epoetin Andre (Epoetin Andre(ESRD on dialysis)) 6,000 unit THU-THU-THU SUBQ 01/11/20 21:00 04/10/20 20:59 01/11/20 21:22 Heparin Sodium/ Sodium Chloride (Heparin 1000 units/500ml Premix) 1,000 unit ONCE IV 01/13/20 09:15 01/13/20 23:59 Insulin Aspart (NovoLOG) BEFORE MEALS AND HS SUBQ 01/08/20 06:30 04/07/20 06:29 01/12/20 20:35 Lidocaine/ Epinephrine (Lidocaine 2%/ Epi 20ml) 20 ml ONCE INJ 01/13/20 09:15 01/13/20 23:59 Mirtazapine (Remeron) 7.5 mg QHS PRN ORAL insomnia 01/10/20 00:30 04/09/20 00:29 Ondansetron HCl (Zofran) 4 mg Q6H PRN IVP Nausea & Vomiting 01/12/20 16:30 02/11/20 16:29 01/12/20 16:23 Pantoprazole (Protonix) 40 mg EVERY 12 HOURS IVP 01/10/20 09:00 02/09/20 08:59 01/13/20 08:22 Tamsulosin HCl (Flomax) 0.4 mg BID ORAL 01/10/20 13:00 02/08/20 20:59 01/13/20 08:41 Laboratory Tests 01/12/20 16:58: POC Whole Blood Glucose 83 01/12/20 20:21: POC Whole Blood Glucose 233H 01/13/20 05:35: White Blood Count 13.7#H, Red Blood Count 2.86L, Hemoglobin 8.9L, Hematocrit 26.1L, Mean Corpuscular Volume 91, Mean Corpuscular Hemoglobin 31.2H, Mean Corpuscular Hemoglobin Concent 34.2, Red Cell Distribution Width 14.7, Platelet Count 106L, Mean Platelet Volume 7.3, Neutrophils (%) (Auto) , Lymphocytes (%) (Auto) , Monocytes (%) (Auto) , Eosinophils (%) (Auto) , Basophils (%) (Auto) , Differential Total Cells Counted 100, Neutrophils % (Manual) 88H, Lymphocytes % (Manual) 9L, Monocytes % (Manual) 3, Eosinophils % (Manual) 0, Basophils % (Manual) 0, Band Neutrophils 0, Platelet Estimate DecreasedL, Platelet Morphology Normal, Hypochromasia 1+, Anisocytosis 1+, Sodium Level 141, Potassium Level 3.4L, Chloride Level 107, Carbon Dioxide Level 27, Anion Gap 7, Blood Urea Nitrogen 34H, Creatinine 3.9H, Estimat Glomerular Filtration Rate 15.6, Glucose Level 72L, Calcium Level 7.5L, Phosphorus Level 3.4, Magnesium Level 1.9, Total Bilirubin 0.5, Aspartate Amino Transf (AST/SGOT) 19, Alanine Aminotransferase (ALT/SGPT) 11L, Alkaline Phosphatase 92, C-Reactive Protein, Quantitative 14.1H, Pro-B-Type Natriuretic Peptide [id number], Total Protein 5.8L, Albumin 2.2L, Globulin 3.6, Albumin/Globulin Ratio 0.6L 01/13/20 06:00: POC Whole Blood Glucose 120H 01/13/20 11:26: POC Whole Blood Glucose 124H Height (Feet): 5 Height (Inches): 4.00 Weight (Pounds): 99 General Appearance: no apparent distress Cardiovascular: normal rate Respiratory/Chest: decreased breath sounds Abdomen: soft Objective No change Orlin Berrios MD Jan 13, 2020 13:20
--- NOTE | 2020-01-13 14:05 | NUR ---
NURSE NOTES:pt off the unit for dialysis catheter placement. No acute distress noted at this time.
--- NOTE | 2020-01-13 15:12 | Pre-Procedure Note/Attestation ---
Pre-Procedure Note/Attestation Complete Prior to Procedure Planned Procedure: right Procedure Narrative: dave catheter Indications for Procedure Pre-Operative Diagnosis: renal failure, inadvertant removal of dave catheter in anticipation of permacath Attestation I attest that I discussed the nature of the procedure; its benefits; risks and complications; and alternatives (and the risks and benefits of such alternatives), prior to the procedure, with the patient (or the patient's legal corporate representative). I attest that, if there was a reasonable possibility of needing a blood transfusion, the patient (or the patient's legal corporate representative) was given the [facility] standardized written summary, pursuant to the [place] Blood Safety Act ([place] Health and Safety Code # 1645, as amended). I attest that I re-evaluated the patient just prior to the surgery and that there has been no change in the patient's H&P, except as documented below: Saul Mejia MD Jan 13, 2020 15:12
--- NOTE | 2020-01-13 15:13 | Brief Operative Note ---
Immediate Post Operative Note Operative Note Pre-op Diagnosis: renal failure, inadvertant removal of dave catheter in anticipation of permacath Procedure: Blanka acosta Post-op Diagnosis: same Post-op Diagnosis: same as pre-op Surgeon: Blanka Mejia Anesthesia: local Specimen: none Complications: none Fluids: none Implant(s) used?: No Saul Mejia MD Jan 13, 2020 15:12
--- NOTE | 2020-01-13 15:16 | History and Physical ---
History of Present Illness General Date patient seen: Jan 13, 2020 Reason for Hospitalization: Generalized Weakness Present Illness HPI 64 years old hm admitted for sob, weakness and poor appetite. pt leaves at home byhimself. pt was found severe anemia and ac renal failure. pt was also hypotensive and hypothermic in er Allergies: Coded Allergies: No Known Allergies (Unverified , 04/21/18) COVID-19 Screening Contact w/high risk pt: Yes Recent Travel to affected area: Yes Experienced COVID-19 symptoms?: No Medication History Unable to Obtain Active Prescriptions or Reported Meds Patient History Healthcare decision maker Resuscitation status Advanced Directive on File Review of Systems Constitutional: Reports: sweats, weakness Cardiovascular: Reports: PND Gastrointestinal: Reports: abdominal pain, vomiting Physical Exam General Appearance: cachetic, thin HEENT: PERRL Neck: supple Respiratory/Chest: crackles/rales Cardiovascular/Chest: tachycardia Abdomen: non tender, soft Extremities: non-tender Musculoskeletal: atrophy Last 24 Hour Vital Signs Date Time Temp Pulse Resp B/P (MAP) Pulse Ox O2 Delivery O2 Flow Rate FiO2 01/13/20 12:00 97.4 67 20 110/54 (72) 96 01/13/20 08:00 97.8 66 20 122/57 (78) 96 01/13/20 04:00 97.5 69 22 123/57 (79) 96 01/13/20 00:00 98.6 73 20 121/59 (79) 98 01/12/20 20:00 98.1 83 20 115/74 (88) 98 01/12/20 16:00 97.0 60 18 111/56 (74) 97 Intake and Output 01/12/20 01/13/20 19:00 07:00 Intake Total 1435 ml 550 ml Output Total 0 ml 350 ml Balance 1435 ml 200 ml Intake Oral 480 ml IV Total 955 ml 550 ml Output Urine Total 350 ml Estimated Blood Loss 0 ml # Bowel Movements 4 Laboratory Tests Test 01/12/20 16:58 01/12/20 20:21 01/13/20 05:35 01/13/20 06:00 POC Whole Blood Glucose 83 MG/DL (74-106) 233 MG/DL (74-106) H 120 MG/DL (74-106) H White Blood Count 13.7 K/UL (4.8-10.8) #H Red Blood Count 2.86 M/UL (4.70-6.10) L Hemoglobin 8.9 G/DL (14.2-18.0) L Hematocrit 26.1 % (42.0-52.0) L Mean Corpuscular Volume 91 FL (80-99) Mean Corpuscular Hemoglobin 31.2 PG (27.0-31.0) H Mean Corpuscular Hemoglobin Concent 34.2 G/DL (32.0-36.0) Red Cell Distribution Width 14.7 % (11.6-14.8) Platelet Count 106 K/UL (150-450) L Mean Platelet Volume 7.3 FL (6.5-10.1) Neutrophils (%) (Auto) % (45.0-75.0) Lymphocytes (%) (Auto) % (20.0-45.0) Monocytes (%) (Auto) % (1.0-10.0) Eosinophils (%) (Auto) % (0.0-3.0) Basophils (%) (Auto) % (0.0-2.0) Differential Total Cells Counted 100 Neutrophils % (Manual) 88 % (45-75) H Lymphocytes % (Manual) 9 % (20-45) L Monocytes % (Manual) 3 % (1-10) Eosinophils % (Manual) 0 % (0-3) Basophils % (Manual) 0 % (0-2) Band Neutrophils 0 % (0-8) Platelet Estimate Decreased L Platelet Morphology Normal Hypochromasia 1+ Anisocytosis 1+ Sodium Level 141 MMOL/L (136-145) Potassium Level 3.4 MMOL/L (3.5-5.1) L Chloride Level 107 MMOL/L (98-107) Carbon Dioxide Level 27 MMOL/L (21-32) Anion Gap 7 mmol/L (5-15) Blood Urea Nitrogen 34 mg/dL (7-18) H Creatinine 3.9 MG/DL (0.55-1.30) H Estimat Glomerular Filtration Rate 15.6 mL/min (>60) Glucose Level 72 MG/DL (74-106) L Calcium Level 7.5 MG/DL (8.5-10.1) L Phosphorus Level 3.4 MG/DL (2.5-4.9) Magnesium Level 1.9 MG/DL (1.8-2.4) Total Bilirubin 0.5 MG/DL (0.2-1.0) Aspartate Amino Transf (AST/SGOT) 19 U/L (15-37) Alanine Aminotransferase (ALT/SGPT) 11 U/L (12-78) L Alkaline Phosphatase 92 U/L (46-116) C-Reactive Protein, Quantitative 14.1 mg/dL (0.00-0.90) H Pro-B-Type Natriuretic Peptide 75173 pg/mL (0-125) H Total Protein 5.8 G/DL (6.4-8.2) L Albumin 2.2 G/DL (3.4-5.0) L Globulin 3.6 g/dL Albumin/Globulin Ratio 0.6 (1.0-2.7) L Test 01/13/20 11:26 POC Whole Blood Glucose 124 MG/DL (74-106) H Height (Feet): 5 Height (Inches): 4.00 Weight (Pounds): 99 Medications Current Medications Medications (Trade) Dose Ordered Sig/Jamal Route PRN Reason Start Time Stop Time Status Last Admin Dose Admin Ceftriaxone Sodium 1 gm/ Dextrose 55 ml @ 110 mls/hr Q24H IVPB 01/09/20 08:00 01/16/20 07:59 01/13/20 08:22 Chlorhexidine Gluconate (Jen-Hex 2%) 1 applic DAILY@2000 TOPIC 01/10/20 20:00 04/09/20 19:59 01/12/20 20:34 Dextrose (Dextrose 50%) 25 ml Q30M PRN IV Hypoglycemia 01/08/20 04:15 04/07/20 04:14 01/09/20 12:09 Dextrose (Dextrose 50%) 50 ml Q30M PRN IV Hypoglycemia 01/08/20 04:15 04/07/20 04:14 Dextrose/Sodium Chloride 1,000 ml @ 50 mls/hr Q20H IV 01/10/20 08:00 02/09/20 07:59 01/11/20 05:20 Docusate Sodium (Colace) 100 mg THREE TIMES A DAY ORAL 01/09/20 18:00 02/08/20 17:59 01/13/20 08:41 Epoetin Andre (Epoetin Andre(ESRD on dialysis)) 6,000 unit THU-THU-THU SUBQ 01/11/20 21:00 1/26/21 20:59 01/11/20 21:22 Heparin Sodium/ Sodium Chloride (Heparin 1000 units/500ml Premix) 1,000 unit ONCE IV 01/13/20 09:15 01/13/20 23:59 Insulin Aspart (NovoLOG) BEFORE MEALS AND HS SUBQ 01/08/20 06:30 04/07/20 06:29 01/12/20 20:35 Lidocaine/ Epinephrine (Lidocaine 2%/ Epi 20ml) 20 ml ONCE INJ 01/13/20 09:15 01/13/20 23:59 Mirtazapine (Remeron) 7.5 mg QHS PRN ORAL insomnia 01/10/20 00:30 04/09/20 00:29 Ondansetron HCl (Zofran) 4 mg Q6H PRN IVP Nausea & Vomiting 01/12/20 16:30 02/11/20 16:29 01/12/20 16:23 Pantoprazole (Protonix) 40 mg EVERY 12 HOURS IVP 01/10/20 09:00 02/09/20 08:59 01/13/20 08:22 Tamsulosin HCl (Flomax) 0.4 mg BID ORAL 01/10/20 13:00 02/08/20 20:59 01/13/20 08:41 Assessment/Plan Assessment/Plan: ac kidney failure improving 1 anemia r/o gi bleeding hh better 2 severe malnutrition 3 wt loss 4 fever r/o sepsis 5 dm type 2 gi w/u today cont ss, accue check pt/ot eval Diagnosis [facility] I: 1 anemia transfusion of 2 prbc 2 hypothermia resolved 3 hypotension resolved 4 ac renal failure 5 dm type 2 6 failure of thrive 7 uti admit to [facility] ivf iv abx nephro and id consult rpt labs Kamron Allan MD Jan 13, 2020 15:15
--- NOTE | 2020-01-13 15:18 | Cardiology Progress Note ---
Assessment/Plan Assessment/Plan 1. Sinus bradycardia, resolved, possibly due to hypothermia, no cardiac intervention is required at this time. 2. Profound anemia, status post blood transfusion. 3. Mild pulmonary hypertension, 2D echocardiography in April 2018 had showed normal LV systolic and diastolic function. Subjective Subjective No cardiac events reported. Denies chest pain or SOB. Objective Last 24 Hour Vital Signs Date Time Temp Pulse Resp B/P (MAP) Pulse Ox O2 Delivery O2 Flow Rate FiO2 01/13/20 15:10 97.4 65 18 110/64 (79) 99 01/13/20 15:00 97.1 64 17 113/64 (80) 99 01/13/20 14:30 96.9 67 17 126/71 (89) 98 01/13/20 14:23 67 17 01/13/20 12:00 97.4 67 20 110/54 (72) 96 01/13/20 08:00 97.8 66 20 122/57 (78) 96 01/13/20 04:00 97.5 69 22 123/57 (79) 96 01/13/20 00:00 98.6 73 20 121/59 (79) 98 01/12/20 20:00 98.1 83 20 115/74 (88) 98 01/12/20 16:00 97.0 60 18 111/56 (74) 97 Intake and Output 01/12/20 01/13/20 19:00 07:00 Intake Total 1435 ml 550 ml Output Total 0 ml 350 ml Balance 1435 ml 200 ml Intake Oral 480 ml IV Total 955 ml 550 ml Output Urine Total 350 ml Estimated Blood Loss 0 ml # Bowel Movements 4 Laboratory Tests Test 01/12/20 16:58 01/12/20 20:21 01/13/20 05:35 01/13/20 06:00 POC Whole Blood Glucose 83 MG/DL (74-106) 233 MG/DL (74-106) H 120 MG/DL (74-106) H White Blood Count 13.7 K/UL (4.8-10.8) #H Red Blood Count 2.86 M/UL (4.70-6.10) L Hemoglobin 8.9 G/DL (14.2-18.0) L Hematocrit 26.1 % (42.0-52.0) L Mean Corpuscular Volume 91 FL (80-99) Mean Corpuscular Hemoglobin 31.2 PG (27.0-31.0) H Mean Corpuscular Hemoglobin Concent 34.2 G/DL (32.0-36.0) Red Cell Distribution Width 14.7 % (11.6-14.8) Platelet Count 106 K/UL (150-450) L Mean Platelet Volume 7.3 FL (6.5-10.1) Neutrophils (%) (Auto) % (45.0-75.0) Lymphocytes (%) (Auto) % (20.0-45.0) Monocytes (%) (Auto) % (1.0-10.0) Eosinophils (%) (Auto) % (0.0-3.0) Basophils (%) (Auto) % (0.0-2.0) Differential Total Cells Counted 100 Neutrophils % (Manual) 88 % (45-75) H Lymphocytes % (Manual) 9 % (20-45) L Monocytes % (Manual) 3 % (1-10) Eosinophils % (Manual) 0 % (0-3) Basophils % (Manual) 0 % (0-2) Band Neutrophils 0 % (0-8) Platelet Estimate Decreased L Platelet Morphology Normal Hypochromasia 1+ Anisocytosis 1+ Sodium Level 141 MMOL/L (136-145) Potassium Level 3.4 MMOL/L (3.5-5.1) L Chloride Level 107 MMOL/L (98-107) Carbon Dioxide Level 27 MMOL/L (21-32) Anion Gap 7 mmol/L (5-15) Blood Urea Nitrogen 34 mg/dL (7-18) H Creatinine 3.9 MG/DL (0.55-1.30) H Estimat Glomerular Filtration Rate 15.6 mL/min (>60) Glucose Level 72 MG/DL (74-106) L Calcium Level 7.5 MG/DL (8.5-10.1) L Phosphorus Level 3.4 MG/DL (2.5-4.9) Magnesium Level 1.9 MG/DL (1.8-2.4) Total Bilirubin 0.5 MG/DL (0.2-1.0) Aspartate Amino Transf (AST/SGOT) 19 U/L (15-37) Alanine Aminotransferase (ALT/SGPT) 11 U/L (12-78) L Alkaline Phosphatase 92 U/L (46-116) C-Reactive Protein, Quantitative 14.1 mg/dL (0.00-0.90) H Pro-B-Type Natriuretic Peptide 83370 pg/mL (0-125) H Total Protein 5.8 G/DL (6.4-8.2) L Albumin 2.2 G/DL (3.4-5.0) L Globulin 3.6 g/dL Albumin/Globulin Ratio 0.6 (1.0-2.7) L Test 01/13/20 11:26 POC Whole Blood Glucose 124 MG/DL (74-106) H Objective HEENT: Atraumatic and normocephalic. Anicteric. Pupils are equal, round, and reactive to light and accommodation. Extraocular muscles are intact. NECK: JVP less than 5 cm. No carotid bruit. Carotid upstrokes 2+ bilaterally. CARDIOVASCULAR: Normal S1, S2. Regular rate and rhythm, bradycardic. No murmurs, gallops, or rubs. PMI is at fourth intercostal space, midclavicular line. LUNGS: Clear to auscultation bilaterally. ABDOMEN: No hepatosplenomegaly. Soft and nondistended. Positive bowel sounds. EXTREMITIES: No evidence of edema, clubbing or cyanosis. Alvaro Hargrove MD Jan 13, 2020 15:18
--- NOTE | 2020-01-13 15:30 | NUR ---
NURSE NOTES:pt returns to the unit alert, awake and verbally responsive. pt has new tipple lumen Shad catheter on right upper chest wall for dialysis. site is intact. no bleeding noted. pt denies any pain. call light within reach.
--- NOTE | 2020-01-13 15:57 | NUR ---
RADIOLOGY NOTE: RIGHT IJ NON TUNNELED DIALYSIS CATHETER PLACEMENT BY DR. YEIMI WEATHERS. FA
[2020-01-13] MEDS: D5NS 1,000 ML IV SCH (16:14)
--- NOTE | 2020-01-13 16:27 | NUR ---
CASE MANAGEMENT:REVIEW SI;ESRD/ACUTE KIDNEY FAILURE~NEW HD. ANEMIA. 96.9 67 20 126/71 96% ON RA WBC 13.7 H/H 8.9/26.1 K+ 3.4 BUN 34 CR 3.9 CA 7.5 CRP 14.1 BNP 68030 ALB 2.2 IS;HD CATH PLACEMENT HEPARIN IV PROTONIX IV Q12 ROCEPHIN IV Q24 MED SURG STATUS DCP;FROM HOME
--- NOTE | 2020-01-13 16:46 | Diagnostic Imaging Report ---
Indication:Needs dialysis access. Tunneled dialysis catheter was requested, pre-existing temporary dialysis catheter removed in anticipation of such. However, represents an indicated new onset leukocytosis, a relative contraindication for tunneled dialysis catheter placement. After discussion with referring business change manager, it was elected to replace the temporary dialysis catheter. Technique: Procedural timeout performed. Informed consent obtained prior to commencement of the procedure.. Ultrasound confirms patent compressible right internal jugular vein. Total sterile technique, including sterile probe cover and sterile gel, sterile gloves, hand hygiene, hat, mask, sterile gown, large sterile drape, and preparation with 2% chlorhexidine utilized.Local anesthesia with 1% lidocaine. Under real-time ultrasound guidance, puncture right internal jugular vein using 21-gauge micropuncture needle, Passage 0.018 guidewire, insertion 4 Setswana micropuncture introducer, passage 0.035 guidewire, over which was passed serial dilators and then a 15 cm long triple-lumen temporary dialysis catheter, under fluoroscopic supervision. Completion stored digital radiograph obtained, demonstrating catheter tip position at the cavoatrial junction The patient tolerated the procedure well, without immediate complication. Fluoroscopy time 48.4 seconds Dose Area Product 0.12150 mGym2 Impression: Successful placement of right jugular temporary dialysis catheter, as described.
--- NOTE | 2020-01-13 16:55 | Surgery Progress Note ---
Surgery Progress Note Subjective Additional Comments no acute events comfortable stable Objective Last 24 Hour Vital Signs Date Time Temp Pulse Resp B/P (MAP) Pulse Ox O2 Delivery O2 Flow Rate FiO2 01/13/20 16:00 97.1 65 14 106/55 (72) 96 01/13/20 15:10 97.4 65 18 110/64 (79) 99 01/13/20 15:00 97.1 64 17 113/64 (80) 99 01/13/20 14:30 96.9 67 17 126/71 (89) 98 01/13/20 14:23 67 17 01/13/20 12:00 97.4 67 20 110/54 (72) 96 01/13/20 08:00 97.8 66 20 122/57 (78) 96 01/13/20 04:00 97.5 69 22 123/57 (79) 96 01/13/20 00:00 98.6 73 20 121/59 (79) 98 01/12/20 20:00 98.1 83 20 115/74 (88) 98 I&O Intake and Output 01/12/20 01/13/20 19:00 07:00 Intake Total 1435 ml 550 ml Output Total 0 ml 350 ml Balance 1435 ml 200 ml Intake Oral 480 ml IV Total 955 ml 550 ml Output Urine Total 350 ml Estimated Blood Loss 0 ml # Bowel Movements 4 Dressing: saturated Cardiovascular: RSR Respiratory: decreased breath sounds Abdomen: non-tender, present bowel sounds Extremities: no edema, no tenderness Laboratory Tests Test 01/12/20 16:58 01/12/20 20:21 01/13/20 05:35 01/13/20 06:00 POC Whole Blood Glucose 83 MG/DL (74-106) 233 MG/DL (74-106) H 120 MG/DL (74-106) H White Blood Count 13.7 K/UL (4.8-10.8) #H Red Blood Count 2.86 M/UL (4.70-6.10) L Hemoglobin 8.9 G/DL (14.2-18.0) L Hematocrit 26.1 % (42.0-52.0) L Mean Corpuscular Volume 91 FL (80-99) Mean Corpuscular Hemoglobin 31.2 PG (27.0-31.0) H Mean Corpuscular Hemoglobin Concent 34.2 G/DL (32.0-36.0) Red Cell Distribution Width 14.7 % (11.6-14.8) Platelet Count 106 K/UL (150-450) L Mean Platelet Volume 7.3 FL (6.5-10.1) Neutrophils (%) (Auto) % (45.0-75.0) Lymphocytes (%) (Auto) % (20.0-45.0) Monocytes (%) (Auto) % (1.0-10.0) Eosinophils (%) (Auto) % (0.0-3.0) Basophils (%) (Auto) % (0.0-2.0) Differential Total Cells Counted 100 Neutrophils % (Manual) 88 % (45-75) H Lymphocytes % (Manual) 9 % (20-45) L Monocytes % (Manual) 3 % (1-10) Eosinophils % (Manual) 0 % (0-3) Basophils % (Manual) 0 % (0-2) Band Neutrophils 0 % (0-8) Platelet Estimate Decreased L Platelet Morphology Normal Hypochromasia 1+ Anisocytosis 1+ Sodium Level 141 MMOL/L (136-145) Potassium Level 3.4 MMOL/L (3.5-5.1) L Chloride Level 107 MMOL/L (98-107) Carbon Dioxide Level 27 MMOL/L (21-32) Anion Gap 7 mmol/L (5-15) Blood Urea Nitrogen 34 mg/dL (7-18) H Creatinine 3.9 MG/DL (0.55-1.30) H Estimat Glomerular Filtration Rate 15.6 mL/min (>60) Glucose Level 72 MG/DL (74-106) L Calcium Level 7.5 MG/DL (8.5-10.1) L Phosphorus Level 3.4 MG/DL (2.5-4.9) Magnesium Level 1.9 MG/DL (1.8-2.4) Total Bilirubin 0.5 MG/DL (0.2-1.0) Aspartate Amino Transf (AST/SGOT) 19 U/L (15-37) Alanine Aminotransferase (ALT/SGPT) 11 U/L (12-78) L Alkaline Phosphatase 92 U/L (46-116) C-Reactive Protein, Quantitative 14.1 mg/dL (0.00-0.90) H Pro-B-Type Natriuretic Peptide 79087 pg/mL (0-125) H Total Protein 5.8 G/DL (6.4-8.2) L Albumin 2.2 G/DL (3.4-5.0) L Globulin 3.6 g/dL Albumin/Globulin Ratio 0.6 (1.0-2.7) L Test 01/13/20 11:26 01/13/20 16:38 POC Whole Blood Glucose 124 MG/DL (74-106) H Pending Plan Problems: (1) Bleeding due to dialysis catheter placement Assessment & Plan: 64-year-old male recently had a right temporary internal jugular dialysis catheter placement by interventional radiology. Patient has be en oozing and bleeding from the site since multiple dressings have been changed surgeries been called to evaluate assist with care. Patient seen, patient evaluated, chart reviewed. The site was evaluated dressings were removed there was a large hematoma identified. Hematoma was evacuated removed and site was cleaned with normal saline and gauze. once cleaned was identified that the lateral stitch was oozing and was able to be tightened with surgical instruments the bedside. Once the stitch was tightened down the hemostasis identified pressure was held for 10 minutes and then monitored for a few minutes and hemostasis noted. New dressing applied. Will monitor site. Thank you for your participation's care (2) Hyperkalemia (3) Anemia (4) Ascites (5) Hypoglycemia (6) Pancreatitis (7) Renal failure (8) Sepsis (9) Metabolic acidosis (10) Gallstones (11) Community acquired pneumonia (12) Diabetes (13) Failure to thrive (14) Ureter obstruction (15) JONA (acute kidney injury) (16) Acute cholecystitis (17) Choledocholithiasis with acute cholecystitis Assessment & Plan: discussed with GI Recommend cholecystectomy when patient agreeable and stable and medically clear ercp Gallbladder is filled with gallstones. The common bile duct is also filled with gallstones. Common bile duct is dilated, measuring 11 mm in diameter. There is mild central intrahepatic biliary ductal dilatation. No obstructing ampullary mass demonstrated. Considerable signal dropout on the fat saturated images in the liver indicates fatty liver. The pancreas, spleen, adrenals are unremarkable. The kidneys demonstrate bilateral cysts. No pelvic mass or adenopathy. Free intraperitoneal fluid is demonstrated. This is mostly seen surrounding the liver. Impression: Somewhat limited exam, as described Cholelithiasis. There is also choledocholithiasis and biliary ductal dilatation. Although choledocholithiasis was reported on the prior study, calculi are much more extensive within the common bile duct on the current exam Ascites fluid, increased in extent from previous study Bilateral renal cyst Bilateral pleural effusions (18) Dehydration (19) Bradycardia (20) Hypothermia (21) Rectal bleeding (22) Gall bladder stones (23) Gallstone pancreatitis (24) GI Martin Sterling Jan 13, 2020 16:55
--- NOTE | 2020-01-13 18:49 | NUR ---
NURSE NOTES:Noted pt with loose stool x 3 episodes. no foul smell noted. pt denies any abdominal pain and discomfort. noted with hyperactive bowel sounds. abdomen is soft an non-distended. pt is kept clean and dry. IV fluid is running as scheduled. made Dr. Allan aware. no new orders made.
--- NOTE | 2020-01-13 19:30 | NUR ---
NURSE HAND-OFF: Important Events on Shift:Noted with loose BM X3, Dr. estevez said no new order. new Shad catheter placed to right jugular vein for dialysis Patient Status: stable Diet: renal soft easy-chew Pending Orders: n/a Pending Results/Labs:n/a Pending MD notification:n/a Latest Vital Signs: Temperature 97.1 , Pulse 65 , B/P 106 /55 , Respiratory Rate 14 , O2 SAT 96 , Nasal Cannula, O2 Flow Rate 3 . Vital Sign Comment: stable Latest Mclean Fall Score: 85 Fall Risk: High Risk Safety Measures: Call light Within Reach, Bed Alarm Zone 2, Side Rails Side Rails x3, Bed position Low and Locked. Fall Precautions: Yellow Socks Yellow Gown Door Sign Patient Fall Education Report given to Osiris.
--- NOTE | 2020-01-13 19:31 | NUR ---
NURSE NOTES: Patient in bed, awake and able to make needs known. On room air with no signs of distress or SOB. Right jugular HD cath noted; dressing c/d/i. IV intact and running IVF as ordered. Bed locked and in lowest position. Bed alarm on. Call light in reach. Will continue plan of care.
[2020-01-13] MEDS: Dyna-Hex 2% Top Sol 2oz TOPIC SCH (20:00)
[2020-01-13] MEDS: Epoetin Alfa-EPBX(ESRD on dialysis)3000 units/ml vial SUBQ SCH (22:03)
[2020-01-14] VITALS (7 sets, daily range): BP systolic 116–158; BP diastolic 58–78
--- NOTE | 2020-01-14 04:01 | NUR ---
NURSE NOTES: Patient noted with stage 2 on the left lower buttocks. WC plan initiated; WCP taken and uploaded. Patient has been having continuous diarrhea and frequent cleanings in that area. Moisture barrier cream and optifoam applied for protection. printing plate setter made aware. Will continue to monitor.
[2020-01-14 06:14] LABS: ALBUMIN/GLOBULIN RATIO 0.5 (1.0-2.7); BILIRUBIN,TOTAL 0.4 MG/DL (0.2-1.0); CALCIUM 7.3 MG/DL (8.5-10.1); CREATININE 4.5 MG/DL (0.55-1.30); POTASSIUM 3.5 MMOL/L (3.5-5.1)
[2020-01-14 06:19] LABS: PHOSPHORUS 3.7 MG/DL (2.5-4.9)
[2020-01-14] MEDS: NovoLOG Insulin Flexpen SUBQ SCH ×4 (06:30→21:00)
[2020-01-14 06:31] LABS: HEMATOCRIT 22.5 % (42.0-52.0); HEMOGLOBIN 7.6 G/DL (14.2-18.0); MEAN CORPUSCULAR VOLUME 92 FL (80-99); PLATELET COUNT 123 K/UL (150-450); RED BLOOD COUNT 2.45 M/UL (4.70-6.10); WHITE BLOOD COUNT 13.8 K/UL (4.8-10.8)
--- NOTE | 2020-01-14 07:23 | NUR ---
NURSE HAND-OFF: Important Events on Shift: Continuous diarrhea/soft stool Patient Status: Stable Diet: Renal Pending Orders: N/A Pending Results/Labs: Mag, Phos, CRP, BNP, Uric acid, CMP, CBC Pending MD notification: N/A Latest Vital Signs: Temperature 98.0 , Pulse 65 , B/P 129 /59 , Respiratory Rate 18 , O2 SAT 97 , Room Air, O2 Flow Rate 3 . Vital Sign Comment: N/A Latest Mclean Fall Score: 85 Fall Risk: High Risk Safety Measures: Call light Within Reach, Bed Alarm Zone 2, Side Rails Side Rails x3, Bed position Low and Locked. Fall Precautions: Yellow Socks Yellow Gown Door Sign Patient Fall Education Report given to AMARILIS Gan.
--- NOTE | 2020-01-14 07:28 | NUR ---
NURSE NOTES: Received report from AMARILIS Anderson. Patient seen in bed, eating breakfast, AAOX4, able to make needs known. On room air, breathing is even and unlabored with no signs of distress or SOB. Right jugular HD cath noted; dressing c/d/i. IV intact and running IVF as ordered. Bed locked and in lowest position. Bed alarm on. Call light in reach. Will continue plan of care.
--- NOTE | 2020-01-14 08:27 | General Progress Note ---
Subjective ROS Limited/Unobtainable: No Allergies: Coded Allergies: No Known Allergies (Unverified , 04/21/18) Objective Last 24 Hour Vital Signs Date Time Temp Pulse Resp B/P (MAP) Pulse Ox O2 Delivery O2 Flow Rate FiO2 01/14/20 08:00 97.8 73 17 124/62 (82) 98 01/14/20 04:00 98.0 65 18 129/59 (82) 97 01/14/20 03:57 Room Air 01/14/20 00:00 98.1 62 18 125/65 (85) 97 01/13/20 22:48 Room Air 01/13/20 20:00 97.8 68 18 117/86 (96) 98 01/13/20 16:00 97.1 65 14 106/55 (72) 96 01/13/20 15:10 97.4 65 18 110/64 (79) 99 01/13/20 15:00 97.1 64 17 113/64 (80) 99 01/13/20 14:30 96.9 67 17 126/71 (89) 98 01/13/20 14:23 67 17 01/13/20 12:00 97.4 67 20 110/54 (72) 96 Intake and Output 01/13/20 01/14/20 19:00 07:00 Intake Total 600 ml Output Total 300 ml Balance 600 ml -300 ml Intake Oral 600 ml Output Urine Total 300 ml # Voids 4 # Bowel Movements 3 7 Laboratory Tests 01/13/20 11:26: POC Whole Blood Glucose 124H 01/13/20 16:38: POC Whole Blood Glucose [Pending] 01/14/20 05:00: White Blood Count 13.8H, Red Blood Count 2.45L, Hemoglobin 7.6L, Hematocrit 22.5L, Mean Corpuscular Volume 92, Mean Corpuscular Hemoglobin 31.2H, Mean Corpuscular Hemoglobin Concent 33.9, Red Cell Distribution Width 15.0H, Platelet Count 123L, Mean Platelet Volume 6.9, Neutrophils (%) (Auto) , Lymphocytes (%) (Auto) , Monocytes (%) (Auto) , Eosinophils (%) (Auto) , Basophils (%) (Auto) , Differential Total Cells Counted 100, Neutrophils % (Manual) 90H, Lymphocytes % (Manual) 5L, Monocytes % (Manual) 1, Eosinophils % (Manual) 2, Basophils % (Manual) 0, Band Neutrophils 2, Platelet Estimate DecreasedL, Platelet Morphology Normal, Anisocytosis 1+, Sodium Level 143, Potassium Level 3.5, Chloride Level 110H, Carbon Dioxide Level 25, Anion Gap 8, Blood Urea Nitrogen 42H, Creatinine 4.5H, Estimat Glomerular Filtration Rate 13.3, Glucose Level 112H, Uric Acid 3.7, Calcium Level 7.3L, Phosphorus Level 3.7, Magnesium Level 1.9, Total Bilirubin 0.4, Aspartate Amino Transf (AST/SGOT) 18, Alanine A minotransferase (ALT/SGPT) 14, Alkaline Phosphatase 91, C-Reactive Protein, Quantitative 19.7H, Pro-B-Type Natriuretic Peptide 9746H, Total Protein 6.0L, Albumin 2.0L, Globulin 4.0, Albumin/Globulin Ratio 0.5L Height (Feet): 5 Height (Inches): 4.00 Weight (Pounds): 99 General Appearance: no apparent distress EENT: normal ENT inspection Neck: supple Cardiovascular: normal rate Respiratory/Chest: decreased breath sounds Abdomen: normal bowel sounds, non tender, soft Extremities: non-tender Assessment/Plan Problem List: (1) Gallstones ICD Codes: K80.20 - Calculus of gallbladder without cholecystitis without obstruction SNOMED: 668240280 (2) Renal failure ICD Codes: N19 - Unspecified kidney failure SNOMED: 21059761 Qualifiers: Qualified Codes: N17.9 - Acute kidney failure, unspecified (3) Anemia ICD Codes: D64.9 - Anemia, unspecified SNOMED: 991599482 Qualifiers: Qualified Codes: D64.9 - Anemia, unspecified (4) Diabetes ICD Codes: E11.9 - Type 2 diabetes mellitus without complications SNOMED: 08753107 Assessment/Plan: s/p EGD and colonoscopy s/p ERCP and stenting needs ercp and stent removal in 8-12 weeks fu surg recs HD per nephrology fu labs hold colace given loose stools change protonix to po daily repeat cbc re check stool ob León Lambert MD Jan 14, 2020 08:27
[2020-01-14] MEDS: Tamsulosin 0.4mg cap ORAL SCH ×2 (08:56→17:07)
[2020-01-14] MEDS: cefTRIAXone 1 GM in D5W 55 ML IVPB SCH (08:56)
--- NOTE | 2020-01-14 09:07 | Surgery Progress Note ---
Surgery Progress Note Subjective Additional Comments scope path results noted no n/v comfortable no bleeding Objective Last 24 Hour Vital Signs Date Time Temp Pulse Resp B/P (MAP) Pulse Ox O2 Delivery O2 Flow Rate FiO2 01/14/20 08:00 97.8 73 17 124/62 (82) 98 01/14/20 04:00 98.0 65 18 129/59 (82) 97 01/14/20 03:57 Room Air 01/14/20 00:00 98.1 62 18 125/65 (85) 97 01/13/20 22:48 Room Air 01/13/20 20:00 97.8 68 18 117/86 (96) 98 01/13/20 16:00 97.1 65 14 106/55 (72) 96 01/13/20 15:10 97.4 65 18 110/64 (79) 99 01/13/20 15:00 97.1 64 17 113/64 (80) 99 01/13/20 14:30 96.9 67 17 126/71 (89) 98 01/13/20 14:23 67 17 01/13/20 12:00 97.4 67 20 110/54 (72) 96 I&O Intake and Output 01/13/20 01/14/20 19:00 07:00 Intake Total 600 ml Output Total 300 ml Balance 600 ml -300 ml Intake Oral 600 ml Output Urine Total 300 ml # Voids 4 # Bowel Movements 3 7 Dressing: dry Cardiovascular: RSR Respiratory: decreased breath sounds Abdomen: non-tender, present bowel sounds Extremities: no edema, no tenderness, no cyanosis Laboratory Tests Test 01/13/20 11:26 01/13/20 16:38 01/14/20 05:00 POC Whole Blood Glucose 124 MG/DL (74-106) H Pending White Blood Count 13.8 K/UL (4.8-10.8) H Red Blood Count 2.45 M/UL (4.70-6.10) L Hemoglobin 7.6 G/DL (14.2-18.0) L Hematocrit 22.5 % (42.0-52.0) L Mean Corpuscular Volume 92 FL (80-99) Mean Corpuscular Hemoglobin 31.2 PG (27.0-31.0) H Mean Corpuscular Hemoglobin Concent 33.9 G/DL (32.0-36.0) Red Cell Distribution Width 15.0 % (11.6-14.8) H Platelet Count 123 K/UL (150-450) L Mean Platelet Volume 6.9 FL (6.5-10.1) Neutrophils (%) (Auto) % (45.0-75.0) Lymphocytes (%) (Auto) % (20.0-45.0) Monocytes (%) (Auto) % (1.0-10.0) Eosinophils (%) (Auto) % (0.0-3.0) Basophils (%) (Auto) % (0.0-2.0) Differential Total Cells Counted 100 Neutrophils % (Manual) 90 % (45-75) H Lymphocytes % (Manual) 5 % (20-45) L Monocytes % (Manual) 1 % (1-10) Eosinophils % (Manual) 2 % (0-3) Basophils % (Manual) 0 % (0-2) Band Neutrophils 2 % (0-8) Platelet Estimate Decreased L Platelet Morphology Normal Anisocytosis 1+ Sodium Level 143 MMOL/L (136-145) Potassium Level 3.5 MMOL/L (3.5-5.1) Chloride Level 110 MMOL/L (98-107) H Carbon Dioxide Level 25 MMOL/L (21-32) Anion Gap 8 mmol/L (5-15) Blood Urea Nitrogen 42 mg/dL (7-18) H Creatinine 4.5 MG/DL (0.55-1.30) H Estimat Glomerular Filtration Rate 13.3 mL/min (>60) Glucose Level 112 MG/DL (74-106) H Uric Acid 3.7 MG/DL (2.6-7.2) Calcium Level 7.3 MG/DL (8.5-10.1) L Phosphorus Level 3.7 MG/DL (2.5-4.9) Magnesium Level 1.9 MG/DL (1.8-2.4) Total Bilirubin 0.4 MG/DL (0.2-1.0) Aspartate Amino Transf (AST/SGOT) 18 U/L (15-37) Alanine Aminotransferase (ALT/SGPT) 14 U/L (12-78) Alkaline Phosphatase 91 U/L (46-116) C-Reactive Protein, Quantitative 19.7 mg/dL (0.00-0.90) H Pro-B-Type Natriuretic Peptide 9746 pg/mL (0-125) H Total Protein 6.0 G/DL (6.4-8.2) L Albumin 2.0 G/DL (3.4-5.0) L Globulin 4.0 g/dL Albumin/Globulin Ratio 0.5 (1.0-2.7) L Plan Problems: (1) Bleeding due to dialysis catheter placement Assessment & Plan: 64-year-old male recently had a right temporary internal jugular dialysis catheter placement by interventional radiology. Patient has been oozing and bleeding from the site since multiple dressings have been changed surgeries been called to evaluate assist with care. Patient seen, patient evaluated, chart reviewed. The site was evaluated dressings were removed there was a large hematoma identified. Hematoma was evacuated removed a nd site was cleaned with normal saline and gauze. once cleaned was identified that the lateral stitch was oozing and was able to be tightened with surgical instruments the bedside. Once the stitch was tightened down the hemostasis identified pressure was held for 10 minutes and then monitored for a few minutes and hemostasis noted. New dressing applied. Will monitor site. Thank you for your participation's care (2) Hyperkalemia (3) Anemia (4) Ascites (5) Hypoglycemia (6) Pancreatitis (7) Renal failure (8) Sepsis (9) Metabolic acidosis (10) Gallstones (11) Community acquired pneumonia (12) Diabetes (13) Failure to thrive (14) Ureter obstruction (15) JONA (acute kidney injury) (16) Acute cholecystitis (17) Choledocholithiasis with acute cholecystitis Assessment & Plan: discussed with GI Recommend cholecystectomy when patient agreeable and stable and medically clear ercp Gallbladder is filled with gallstones. The common bile duct is also filled with gallstones. Common bile duct is dilated, measuring 11 mm in diameter. There is mild central intrahepatic biliary ductal dilatation. No obstructing ampullary mass demonstrated. Considerable signal dropout on the fat saturated images in the liver indicates fatty liver. The pancreas, spleen, adrenals are unremarkable. The kidneys demonstrate bilateral cysts. No pelvic mass or adenopathy. Free intraperitoneal fluid is demonstrated. This is mostly seen surrounding the liver. Impression: Somewhat limited exam, as described Cholelithiasis. There is also choledocholithiasis and biliary ductal dilatation. Although choledocholithiasis was reported on the prior study, calculi are much more extensive within the common bile duct on the current exam Ascites fluid, increased in extent from previous study Bilateral renal cyst Bilateral pleural effusions (18) Dehydration (19) Bradycardia (20) Hypothermia (21) Rectal bleeding (22) Gall bladder stones (23) Gallstone pancreatitis (24) Martin Warner Jan 14, 2020 09:07
--- NOTE | 2020-01-14 11:01 | Pulmonology Progress Note ---
Subjective ROS Limited/Unobtainable: No Interval Events: None new Constitutional: Reports: no symptoms HEENT: Repors: no symptoms Respiratory: Reports: no symptoms Cardiovascular: Reports: no symptoms Gastrointestinal/Abdominal: Reports: no symptoms Genitourinary: Reports: no symptoms Allergies: Coded Allergies: No Known Allergies (Unverified , 04/21/18) Objective Last 24 Hour Vital Signs Date Time Temp Pulse Resp B/P (MAP) Pulse Ox O2 Delivery O2 Flow Rate FiO2 01/14/20 09:00 Room Air 01/14/20 08:00 97.8 73 17 124/62 (82) 98 01/14/20 04:00 98.0 65 18 129/59 (82) 97 01/14/20 03:57 Room Air 01/14/20 00:00 98.1 62 18 125/65 (85) 97 01/13/20 22:48 Room Air 01/13/20 20:00 97.8 68 18 117/86 (96) 98 01/13/20 16:00 97.1 65 14 106/55 (72) 96 01/13/20 15:10 97.4 65 18 110/64 (79) 99 01/13/20 15:00 97.1 64 17 113/64 (80) 99 01/13/20 14:30 96.9 67 17 126/71 (89) 98 01/13/20 14:23 67 17 01/13/20 12:00 97.4 67 20 110/54 (72) 96 l Intake and Output 01/13/20 01/14/20 19:00 07:00 Intake Total 600 ml Output Total 300 ml Balance 600 ml -300 ml Intake Oral 600 ml Output Urine Total 300 ml # Voids 4 # Bowel Movements 3 7 General Appearance: no acute distress HEENT: normocephalic Respiratory: chest wall non-tender, lungs clear Cardiovascular: normal peripheral pulses Abdomen: normal bowel sounds Laboratory Tests 01/13/20 11:26: POC Whole Blood Glucose 124H 01/13/20 16:38: POC Whole Blood Glucose [Pending] 01/14/20 05:00: White Blood Count 13.8H, Red Blood Count 2.45L, Hemoglobin 7.6L, Hematocrit 22.5L, Mean Corpuscular Volume 92, Mean Corpuscular Hemoglobin 31.2H, Mean Corpuscular Hemoglobin Concent 33.9, Red Cell Distribution Width 15.0H, Platelet Count 123L, Mean Platelet Volume 6.9, Neutrophils (%) (Auto) , Lymphocytes (%) (Auto) , Monocytes (%) (Auto) , Eosinophils (%) (Auto) , Basophils (%) (Auto) , Differential Total Cells Counted 100, Neutrophils % (Manual) 90H, Lymphocytes % (Manual) 5L, Monocytes % (Manual) 1, Eosinophils % (Manual) 2, Basophils % (Manual) 0, Band Neutrophils 2, Platelet Estimate DecreasedL, Platelet Morphology Normal, Anisocytosis 1+, Sodium Level 143, Potassium Level 3.5, Chloride Level 110H, Carbon Dioxide Level 25, Anion Gap 8, Blood Urea Nitrogen 42H, Creatinine 4.5H, Estimat Glomerular Filtration Rate 13.3, Glucose Level 112H, Uric Acid 3.7, Calcium Level 7.3L, Phosphorus Level 3.7, Magnesium Level 1.9, Total Bilirubin 0.4, Aspartate Amino Transf (AST/SGOT) 18, Alanine Aminotransferase (ALT/SGPT) 14, Alkaline Phosphatase 91, C-Reactive Protein, Quantitative 19.7H, Pro-B-Type Natriuretic Peptide 9746H, Total Protein 6.0L, Albumin 2.0L, Globulin 4.0, Albumin/Globulin Ratio 0.5L 01/14/20 08:49: Stool Occult Blood [Pending] Current Medications Medications (Trade) Dose Ordered Sig/Jamal Route PRN Reason Start Time Stop Time Status Last Admin Dose Admin Ceftriaxone Sodium 1 gm/ Dextrose 55 ml @ 110 mls/hr Q24H IVPB 01/09/20 08:00 01/16/20 07:59 01/14/20 08:56 Chlorhexidine Gluconate (Jen-Hex 2%) 1 applic DAILY@2000 TOPIC 01/10/20 20:00 04/09/20 19:59 01/12/20 20:34 Dextrose (Dextrose 50%) 25 ml Q30M PRN IV Hypoglycemia 01/08/20 04:15 04/07/20 04:14 01/09/20 12:09 Dextrose (Dextrose 50%) 50 ml Q30M PRN IV Hypoglycemia 01/08/20 04:15 04/07/20 04:14 Dextrose/Sodium Chloride 1,000 ml @ 50 mls/hr Q20H IV 01/10/20 08:00 02/09/20 07:59 01/13/20 16:14 Epoetin Andre (Epoetin Andre(ESRD on dialysis)) 6,000 unit THU-THU-THU SUBQ 01/11/20 21:00 04/10/20 20:59 01/13/20 22:03 Insulin Aspart (NovoLOG) BEFORE MEALS AND HS SUBQ 01/08/20 06:30 04/07/20 06:29 01/12/20 20:35 Mirtazapine (Remeron) 7.5 mg QHS PRN ORAL insomnia 01/10/20 00:30 04/09/20 00:29 Ondansetron HCl (Zofran) 4 mg Q6H PRN IVP Nausea & Vomiting 01/12/20 16:30 02/11/20 16:29 01/12/20 16:23 Pantoprazole (Protonix) 40 mg DAILY ORAL 01/14/20 09:00 02/13/20 08:59 01/14/20 08:56 Tamsulosin HCl (Flomax) 0.4 mg BID ORAL 01/10/20 13:00 02/08/20 20:59 01/14/20 08:56 Assessment/Plan Assessment/Plan ASSESSMENT AND PLAN: 1. Sinus bradycardia. 2. Profound anemia, status post blood transfusion. 3. Mild pulmonary hypertension 4. Probable pneumonia Agree with broad-spectrum antibiotics. saturating well on RA S/p hemodialysis Nataliya Mclaughlin Omar Syed MD Jan 14, 2020 11:01
[2020-01-14] MEDS: D5NS 1,000 ML IV SCH (12:13)
--- NOTE | 2020-01-14 12:51 | NUR ---
NURSE NOTES: Petients H&H value relayed to Dr. Smith and made aware of lab values. RN awaiting call back for possible new orders
[2020-01-14] MEDS: Doxycycline 100mg in D5W 110ml IV SCH ×2 (14:11→23:14)
--- NOTE | 2020-01-14 14:55 | General Progress Note ---
Subjective Allergies: Coded Allergies: No Known Allergies (Unverified , 04/21/18) Subjective doing better bleeding from ij urology and surgery eval Objective Last 24 Hour Vital Signs Date Time Temp Pulse Resp B/P (MAP) Pulse Ox O2 Delivery O2 Flow Rate FiO2 01/14/20 11:41 97.6 63 18 116/60 (78) 98 01/14/20 09:00 Room Air 01/14/20 08:00 97.8 73 17 124/62 (82) 98 01/14/20 04:00 98.0 65 18 129/59 (82) 97 01/14/20 03:57 Room Air 01/14/20 00:00 98.1 62 18 125/65 (85) 97 01/13/20 22:48 Room Air 01/13/20 20:00 97.8 68 18 117/86 (96) 98 01/13/20 16:00 97.1 65 14 106/55 (72) 96 01/13/20 15:10 97.4 65 18 110/64 (79) 99 01/13/20 15:00 97.1 64 17 113/64 (80) 99 Intake and Output 01/13/20 01/14/20 19:00 07:00 Intake Total 600 ml Output Total 300 ml Balance 600 ml -300 ml Intake Oral 600 ml Output Urine Total 300 ml # Voids 4 # Bowel Movements 3 7 Laboratory Tests 01/13/20 16:38: POC Whole Blood Glucose [Pending] 01/14/20 05:00: White Blood Count 13.8H, Red Blood Count 2.45L, Hemoglobin 7.6L, Hematocrit 22.5L, Mean Corpuscular Volume 92, Mean Corpuscular Hemoglobin 31.2H, Mean Corpuscular Hemoglobin Concent 33.9, Red Cell Distribution Width 15.0H, Platelet Count 123L, Mean Platelet Volume 6.9, Neutrophils (%) (Auto) , Lymphocytes (%) (Auto) , Monocytes (%) (Auto) , Eosinophils (%) (Auto) , Basophils (%) (Auto) , Differential Total Cells Counted 100, Neutrophils % (Manual) 90H, Lymphocytes % (Manual) 5L, Monocytes % (Manual) 1, Eosinophils % (Manual) 2, Basophils % (Manual) 0, Band Neutrophils 2, Platelet Estimate DecreasedL, Platelet Morphology Normal, Anisocytosis 1+, Sodium Level 143, Potassium Level 3.5, Chloride Level 110H, Carbon Dioxide Level 25, Anion Gap 8, Blood Urea Nitrogen 42H, Creatinine 4.5H, Estimat Glomerular Filtration Rate 13.3, Glucose Level 112H, Uric Acid 3.7, Calcium Level 7.3L, Phosphorus Level 3.7, Magnesium Level 1.9, Total Bilirubin 0.4, Aspartate Amino Transf (AST/SGOT) 18, Alanine Aminotransferase (ALT/SGPT) 14, Alkaline Phosphatase 91, C-Reactive Protein, Quantitative 19.7H, Pro-B-Type Natriuretic Peptide 9746H, Total Protein 6.0L, Albumin 2.0L, Globulin 4.0, Albumin/Globulin Ratio 0.5L 01/14/20 08:49: Stool Occult Blood [Pending] 01/14/20 11:52: POC Whole Blood Glucose 158H Height (Feet): 5 Height (Inches): 4.00 Weight (Pounds): 99 General Appearance: alert EENT: PERRL/EOMI Neck: supple Cardiovascular: regular rhythm Respiratory/Chest: normal breath sounds Abdomen: non tender, soft Assessment/Plan Assessment/Plan: ac kidney failure improving 1 anemia r/o gi bleeding hh better 2 severe malnutrition 3 wt loss 4 fever r/o sepsis 5 dm type 2 gi w/u today cont ss, accue check pt/ot eval dc plan [facility] Kamron Allan MD Jan 14, 2020 14:55
--- NOTE | 2020-01-14 15:01 | NUR ---
*-*DISCHARGE PLANNING*-* PATIENT HAS BEEN REFERRED TO: [facility] P: [phone] [facility], SPOKE WITH JORGITO, WORKING ON GETTING AN AUTH FROM [facility], WILL FOLOW UP ON THURSDAY.
--- NOTE | 2020-01-14 15:17 | NUR ---
NURSE NOTES: RN was given order by Dr. Hernandez to infuse 1PRBC. RN put in order, will follow up with lab
--- NOTE | 2020-01-14 19:11 | NUR ---
NURSE HAND-OFF: Important Events on Shift: 4 diarrhe type bowel movement, i unit of PRBC transfusion due today Patient Status: stable Diet: regular Pending Orders: PRBC Pending Results/Labs:OB stool, Urine culture, type and cross Pending MD notification:n/a Latest Vital Signs: Temperature 97.8 , Pulse 65 , B/P 121 /58 , Respiratory Rate 18 , O2 SAT 99 , Room Air, O2 Flow Rate 3 . Vital Sign Comment: stable Latest Mclean Fall Score: 85 Fall Risk: High Risk Safety Measures: Call light Within Reach, Bed Alarm Zone 2, Side Rails Side Rails x3, Bed position Low and Locked. Fall Precautions: Yellow Socks Yellow Gown Door Sign Patient Fall Education Report given to AMARILIS Lemus.
[2020-01-14 19:27] LABS: APPEARANCE,URINE SLIGHTLY CLOUDY; BILIRUBIN, URINE NEGATIVE (NEGATIVE); COLOR,URINE PALE YELLOW; GLUCOSE, URINE (UA) NEGATIVE (NEGATIVE); KETONES,URINE NEGATIVE (NEGATIVE); NITRITE,URINE NEGATIVE (NEGATIVE); PH,URINE 5 (4.5-8.0); PROTEIN,URINE 2+ (NEGATIVE); UROBILINOGEN,URINE NORMAL MG/DL (0.0-1.0)
[2020-01-14 19:50] LABS: LEUKOCYTE ESTERASE ,URINE NEGATIVE (NEGATIVE)
--- NOTE | 2020-01-14 20:00 | NUR ---
NURSE NOTES: Received patient aaox4, had another BM, incontinence care provided. PRBC ready, will transfuse as ordered. No acute distress, VSS.
--- NOTE | 2020-01-14 20:06 | Nephrology Progress Note ---
Assessment/Plan Problem List: (1) JONA (acute kidney injury) (2) Hyperkalemia (3) Anemia (4) Metabolic acidosis (5) Ureter obstruction (6) Failure to thrive Assessment Renal failure acute, superimposed on chronic Hyperkalemia Acidosis Presented with severe anemia on admission, transfused 3 units packed RBCs since admission. History of hypertension History of diabetes mellitus 01/09/2020----PATIENT NEED EMERGENCY LIFE SAVING DIALYSIS Plan January 13: Patient's last dialysis January 11. Next dialysis tomorrow January 14. Patient still have a nontunneled catheter as may have underlying bacteremia. Surveillance blood cultures ordered. January 12: Patient dialyzed yesterday. Due for tunneled catheter placement today. Continue dialysis as needed. Patient has a Torres catheter now. January 11: Patient due for dialysis today. Continue per GI management. Labs reviewed. Will arrange for tunneled dialysis catheter and outpatient dialysis center placement. Urological evaluation pending. January 10: Patient was dialyzed January 08. Is undergoing GI evaluation. Labs reviewed. Due for dialysis again tomorrow. Urological evaluation for bladder retention pending. Insertion of temporary non tunneled dialysis catheter followed by dialysis to correct acidosis hyperkalemia, done yesterday Continue per consultants Monitor electrolytes and renal parameters Hemodialysis as needed Urology evaluation for urinary retention Per orders Subjective ROS Limited/Unobtainable: No Constitutional: Reports: malaise Objective Objective Last 24 Hour Vital Signs Date Time Temp Pulse Resp B/P (MAP) Pulse Ox O2 Delivery O2 Flow Rate FiO2 01/14/20 16:00 97.8 65 18 121/58 (79) 99 01/14/20 11:41 97.6 63 18 116/60 (78) 98 01/14/20 09:00 Room Air 01/14/20 08:00 97.8 73 17 124/62 (82) 98 01/14/20 04:00 98.0 65 18 129/59 (82) 97 01/14/20 03:57 Room Air 01/14/20 00:00 98.1 62 18 125/65 (85) 97 01/13/20 22:48 Room Air Intake and Output 01/13/20 01/14/20 19:00 07:00 Intake Total 600 ml Output Total 300 ml Balance 600 ml -300 ml Intake Oral 600 ml Output Urine Total 300 ml # Voids 4 # Bowel Movements 3 7 Current Medications Medications (Trade) Dose Ordered Sig/Jamal Route PRN Reason Start Time Stop Time Status Last Admin Dose Admin Ceftriaxone Sodium 1 gm/ Dextrose 55 ml @ 110 mls/hr Q24H IVPB 01/09/20 08:00 01/16/20 07:59 01/14/20 08:56 Chlorhexidine Gluconate (Jen-Hex 2%) 1 applic DAILY@2000 TOPIC 01/10/20 20:00 04/09/20 19:59 01/12/20 20:34 Dextrose (Dextrose 50%) 25 ml Q30M PRN IV Hypoglycemia 01/08/20 04:15 04/07/20 04:14 01/09/20 12:09 Dextrose (Dextrose 50%) 50 ml Q30M PRN IV Hypoglycemia 01/08/20 04:15 04/07/20 04:14 Dextrose/Sodium Chloride 1,000 ml @ 50 mls/hr Q20H IV 01/10/20 08:00 02/09/20 07:59 01/14/20 12:13 Doxycycline Hyclate 100 mg/ Dextrose 110 ml @ 110 mls/hr Q12HR IV 01/14/20 14:00 01/21/20 13:59 01/14/20 14:11 Epoetin Andre (Epoetin Andre(ESRD on dialysis)) 6,000 unit THU-THU-THU SUBQ 01/11/20 21:00 04/10/20 20:59 01/13/20 22:03 Insulin Aspart (NovoLOG) BEFORE MEALS AND HS SUBQ 01/08/20 06:30 04/07/20 06:29 01/14/20 11:54 Loperamide HCl (Imodium) 2 mg Q8H PRN ORAL Diarrhea 01/14/20 15:15 02/13/20 15:14 01/14/20 15:15 Mirtazapine (Remeron) 7.5 mg QHS PRN ORAL insomnia 01/10/20 00:30 04/09/20 00:29 Ondansetron HCl (Zofran) 4 mg Q6H PRN IVP Nausea & Vomiting 01/12/20 16:30 02/11/20 16:29 01/12/20 16:23 Pantoprazole (Protonix) 40 mg DAILY ORAL 01/14/20 09:00 02/13/20 08:59 01/14/20 08:56 Tamsulosin HCl (Flomax) 0.4 mg BID ORAL 01/10/20 13:00 02/08/20 20:59 01/14/20 17:07 Laboratory Tests 01/14/20 05:00: White Blood Count 13.8H, Red Blood Count 2.45L, Hemoglobin 7.6L, Hematocrit 22.5L, Mean Corpuscular Volume 92, Mean Corpuscular Hemoglobin 31.2H, Mean Corpuscular Hemoglobin Concent 33.9, Red Cell Distribution Width 15.0H, Platelet Count 123L, Mean Platelet Volume 6.9, Neutrophils (%) (Auto) , Lymphocytes (%) (Auto) , Monocytes (%) (Auto) , Eosinophils (%) (Auto) , Basophils (%) (Auto) , Differential Total Cells Counted 100, Neutrophils % (Manual) 90H, Lymphocytes % (Manual) 5L, Monocytes % (Manual) 1, Eosinophils % (Manual) 2, Basophils % (Manual) 0, Band Neutrophils 2, Platelet Estimate DecreasedL, Platelet Morphology Normal, Anisocytosis 1+, Sodium Level 143, Potassium Level 3.5, Chloride Level 110H, Carbon Dioxide Level 25, Anion Gap 8, Blood Urea Nitrogen 42H, Creatinine 4.5H, Estimat Glomerular Filtration Rate 13.3, Glucose Level 112H, Uric Acid 3.7, Calcium Level 7.3L, Phosphorus Level 3.7, Magnesium Level 1.9, Total Bilirubin 0.4, Aspartate Amino Transf (AST/SGOT) 18, Alanine Aminotransferase (ALT/SGPT) 14, Alkaline Phosphatase 91, C-Reactive Protein, Quantitative 19.7H, Pro-B-Type Natriuretic Peptide 9746H, Total Protein 6.0L, Albumin 2.0L, Globulin 4.0, Albumin/Globulin Ratio 0.5L 01/14/20 08:49: Stool Occult Blood [Pending] 01/14/20 11:52: POC Whole Blood Glucose 158H 01/14/20 15:51: POC Whole Blood Glucose 119H 01/14/20 18:50: Urine Color Pale yellow, Urine Appearance Slightly cloudy, Urine pH 5, Urine Specific [place] 1.015, Urine Protein 2+H, Urine Glucose (UA) Negative, Urine Ketones Negative, Urine Blood 1+H, Urine Nitrite Negative, Urine Bilirubin Negative, Urine Urobilinogen Normal, Urine Leukocyte Esterase Negative, Urine RBC 2-4H, Urine WBC 0-2, Urine Squamous Epithelial Cells Occasional, Urine Amorphous Sediment ModerateH, Urine Bacteria Few Height (Feet): 5 Height (Inches): 4.00 Weight (Pounds): 99 General Appearance: no apparent distress Cardiovascular: normal rate Respiratory/Chest: decreased breath sounds Abdomen: soft Objective No change Orlin Berrios MD Jan 14, 2020 20:05
[2020-01-14] MEDS: Dyna-Hex 2% Top Sol 2oz TOPIC SCH (22:17)
--- NOTE | 2020-01-14 23:30 | NUR ---
NURSE NOTES: 1 PRBC transfused with no adverse reaction. VSS.
--- NOTE | 2020-01-14 23:30 | Psychiatric Progress Note ---
Psychiatry Progress Note Psychiatry Progress Note Medications Current Medications Medications (Trade) Dose Ordered Sig/Jamal Route PRN Reason Start Time Stop Time Status Last Admin Dose Admin Ceftriaxone Sodium 1 gm/ Dextrose 55 ml @ 110 mls/hr Q24H IVPB 01/09/20 08:00 01/16/20 07:59 01/14/20 08:56 Chlorhexidine Gluconate (Jen-Hex 2%) 1 applic DAILY@2000 TOPIC 01/10/20 20:00 04/09/20 19:59 01/14/20 22:17 Dextrose (Dextrose 50%) 25 ml Q30M PRN IV Hypoglycemia 01/08/20 04:15 04/07/20 04:14 01/09/20 12:09 Dextrose (Dextrose 50%) 50 ml Q30M PRN IV Hypoglycemia 01/08/20 04:15 04/07/20 04:14 Doxycycline Hyclate 100 mg/ Dextrose 110 ml @ 110 mls/hr Q12HR IV 01/14/20 14:00 01/21/20 13:59 01/14/20 23:14 Epoetin Andre (Epoetin Andre(ESRD on dialysis)) 6,000 unit THU-THU-THU SUBQ 01/11/20 21:00 04/10/20 20:59 01/13/20 22:03 Insulin Aspart (NovoLOG) BEFORE MEALS AND HS SUBQ 01/08/20 06:30 04/07/20 06:29 01/14/20 11:54 Loperamide HCl (Imodium) 2 mg Q8H PRN ORAL Diarrhea 01/14/20 15:15 02/13/20 15:14 01/14/20 15:15 Mirtazapine (Remeron) 7.5 mg QHS PRN ORAL insomnia 01/10/20 00:30 04/09/20 00:29 Ondansetron HCl (Zofran) 4 mg Q6H PRN IVP Nausea & Vomiting 01/12/20 16:30 02/11/20 16:29 01/12/20 16:23 Pantoprazole (Protonix) 40 mg DAILY ORAL 01/14/20 09:00 02/13/20 08:59 01/14/20 08:56 Tamsulosin HCl (Flomax) 0.4 mg BID ORAL 01/10/20 13:00 02/08/20 20:59 01/14/20 17:07 Neurological/Psychiatric: Reports: anxiety, depressed; Denies: no symptoms, emotional problems, headache, numbness, paresthesia, pre-existing deficit, seizure, tingling, tremors, weakness, other Allergies: Coded Allergies: No Known Allergies (Unverified , 04/21/18) Objective Data Height (Feet): 5 Height (Inches): 4.00 Weight (Pounds): 99 General Appearance: no apparent distress Appearance: no abnormalities noted Behavior Mannerisms: good eye contact Speech: clear Additional Comments: is alert and oriented times self, place, and situation. Mood is dysphoric. Affect is constricted, congruent with mood. Thought process is concrete. Thought content, no suicidal or homicidal ideation. Cognition is impaired Insight and judgment, fair. Assessment/Plan [place] I: ASSESSMENT: [place] I Depressive disorder. [place] II Deferred. PLAN: 1. The patient has capacity to sign consent. 2. Provide the patient with reality orientation and supportive therapy. Status: stable Status Narrative ASSESSMENT: [place] I Depressive disorder. [place] II Deferred. PLAN: 1. The patient has capacity to sign consent. 2. Provide the patient with reality orientation and supportive therapy. Assessment/Plan: ASSESSMENT: [place] I Depressive disorder. [place] II Deferred. PLAN: 1. The patient has capacity to sign consent. 2. Provide the patient with reality orientation and supportive therapy. Harry Lucia MD Jan 14, 2020 23:30
--- NOTE | 2020-01-14 23:48 | Cardiology Progress Note ---
Assessment/Plan Assessment/Plan 1. Sinus bradycardia, resolved, possibly due to hypothermia, no cardiac intervention is required at this time. 2. Anemia, status post blood transfusion. 3. Mild pulmonary hypertension, 2D echocardiography in April 2018 had showed normal LV systolic and diastolic function. Subjective Subjective No cardiac events reported. Objective Last 24 Hour Vital Signs Date Time Temp Pulse Resp B/P (MAP) Pulse Ox O2 Delivery O2 Flow Rate FiO2 01/14/20 23:35 98.1 75 18 158/78 (104) 97 01/14/20 20:53 Room Air 01/14/20 20:00 97.5 70 18 137/78 (97) 99 01/14/20 16:00 97.8 65 18 121/58 (79) 99 01/14/20 11:41 97.6 63 18 116/60 (78) 98 01/14/20 09:00 Room Air 01/14/20 08:00 97.8 73 17 124/62 (82) 98 01/14/20 04:00 98.0 65 18 129/59 (82) 97 01/14/20 03:57 Room Air 01/14/20 00:00 98.1 62 18 125/65 (85) 97 Intake and Output 01/13/20 01/14/20 19:00 07:00 Intake Total 600 ml Output Total 300 ml Balance 600 ml -300 ml Intake Oral 600 ml Output Urine Total 300 ml # Voids 4 # Bowel Movements 3 7 Laboratory Tests Test 01/14/20 05:00 01/14/20 08:49 01/14/20 11:52 01/14/20 15:51 White Blood Count 13.8 K/UL (4.8-10.8) H Red Blood Count 2.45 M/UL (4.70-6.10) L Hemoglobin 7.6 G/DL (14.2-18.0) L Hematocrit 22.5 % (42.0-52.0) L Mean Corpuscular Volume 92 FL (80-99) Mean Corpuscular Hemoglobin 31.2 PG (27.0-31.0) H Mean Corpuscular Hemoglobin Concent 33.9 G/DL (32.0-36.0) Red Cell Distribution Width 15.0 % (11.6-14.8) H Platelet Count 123 K/UL (150-450) L Mean Platelet Volume 6.9 FL (6.5-10.1) Neutrophils (%) (Auto) % (45.0-75.0) Lymphocytes (%) (Auto) % (20.0-45.0) Monocytes (%) (Auto) % (1.0-10.0) Eosinophils (%) (Auto) % (0.0-3.0) Basophils (%) (Auto) % (0.0-2.0) Differential Total Cells Counted 100 Neutrophils % (Manual) 90 % (45-75) H Lymphocytes % (Manual) 5 % (20-45) L Monocytes % (Manual) 1 % (1-10) Eosinophils % (Manual) 2 % (0-3) Basophils % (Manual) 0 % (0-2) Band Neutrophils 2 % (0-8) Platelet Estimate Decreased L Platelet Morphology Normal Anisocytosis 1+ Sodium Level 143 MMOL/L (136-145) Potassium Level 3.5 MMOL/L (3.5-5.1) Chloride Level 110 MMOL/L (98-107) H Carbon Dioxide Level 25 MMOL/L (21-32) Anion Gap 8 mmol/L (5-15) Blood Urea Nitrogen 42 mg/dL (7-18) H Creatinine 4.5 MG/DL (0.55-1.30) H Estimat Glomerular Filtration Rate 13.3 mL/min (>60) Glucose Level 112 MG/DL (74-106) H Uric Acid 3.7 MG/DL (2.6-7.2) Calcium Level 7.3 MG/DL (8.5-10.1) L Phosphorus Level 3.7 MG/DL (2.5-4.9) Magnesium Level 1.9 MG/DL (1.8-2.4) Total Bilirubin 0.4 MG/DL (0.2-1.0) Aspartate Amino Transf (AST/SGOT) 18 U/L (15-37) Alanine Aminotransferase (ALT/SGPT) 14 U/L (12-78) Alkaline Phosphatase 91 U/L (46-116) C-Reactive Protein, Quantitative 19.7 mg/dL (0.00-0.90) H Pro-B-Type Natriuretic Peptide 9746 pg/mL (0-125) H Total Protein 6.0 G/DL (6.4-8.2) L Albumin 2.0 G/DL (3.4-5.0) L Globulin 4.0 g/dL Albumin/Globulin Ratio 0.5 (1.0-2.7) L Stool Occult Blood Pending POC Whole Blood Glucose 158 MG/DL (74-106) H 119 MG/DL (74-106) H Test 01/14/20 18:50 01/14/20 21:28 Urine Color Pale yellow Urine Appearance Slightly cloudy Urine pH 5 (4.5-8.0) Urine Specific [place] 1.015 (1.005-1.035) Urine Protein 2+ (NEGATIVE) H Urine Glucose (UA) Negative (NEGATIVE) Urine Ketones Negative (NEGATIVE) Urine Blood 1+ (NEGATIVE) H Urine Nitrite Negative (NEGATIVE) Urine Bilirubin Negative (NEGATIVE) Urine Urobilinogen Normal MG/DL (0.0-1.0) Urine Leukocyte Esterase Negative (NEGATIVE) Urine RBC 2-4 /HPF (0 - 0) H Urine WBC 0-2 /HPF (0 - 0) Urine Squamous Epithelial Cells Occasional /LPF Urine Amorphous Sediment Moderate /LPF (NONE) H Urine Bacteria Few /HPF (NONE) POC Whole Blood Glucose 118 MG/DL (74-106) H Objective HEENT: Atraumatic and normocephalic. Anicteric. Pupils are equal, round, and reactive to light and accommodation. Extraocular muscles are intact. NECK: JVP less than 5 cm. No carotid bruit. Carotid upstrokes 2+ bilaterally. CARDIOVASCULAR: Normal S1, S2. Regular rate and rhythm, bradycardic. No murmurs, gallops, or rubs. PMI is at fourth intercostal space, midclavicular line. LUNGS: Clear to auscultation bilaterally. ABDOMEN: No hepatosplenomegaly. Soft and nondistended. Positive bowel sounds. EXTREMITIES: No evidence of edema, clubbing or cyanosis. Alvaro Hargrove MD Jan 14, 2020 23:48
--- NOTE | 2020-01-15 01:57 | NUR ---
NURSE NOTES: Patient continues to have diarrhea x2, incontinence care done, PRN imodium given.
[2020-01-15 04:00] VITALS: BP 150/71
[2020-01-15] MEDS: NovoLOG Insulin Flexpen SUBQ SCH ×4 (05:48→21:00)
--- NOTE | 2020-01-15 06:00 | NUR ---
NURSE NOTES: Patient's AM blood sugar was 62, rechecked 63. Patient was given juice and snacks. Rechecked blood sugar was 78. Patient is asymptomatic. Left message to Dr. Allan.
[2020-01-15 06:47] LABS: HEMATOCRIT 26.7 % (42.0-52.0); HEMOGLOBIN 8.9 G/DL (14.2-18.0); MEAN CORPUSCULAR VOLUME 93 FL (80-99); PLATELET COUNT 139 K/UL (150-450); RED BLOOD COUNT 2.86 M/UL (4.70-6.10); RED CELL DISTRIBUTION WIDTH 14.6 % (11.6-14.8); WHITE BLOOD COUNT 12.5 K/UL (4.8-10.8)
--- NOTE | 2020-01-15 06:56 | NUR ---
NURSE HAND-OFF: Important Events on Shift:[had 2x diarrhea, imodium given, PRBC transfused 1u, for HD-[facility] notified, IVF DC'd, blood cultures and labs drawn; AM Blood sugar was 63, improved to 78 after juice and snacks] Patient Status: [stable] Diet: [Renal soft easy chew] Pending Orders: [] Pending Results/Labs:[AM labs and blood cultures] Pending MD notification:[notified Dr. Allan of episode of hypoglycemia-improved; no orders] Latest Vital Signs: Temperature 97.4 , Pulse 69 , B/P 150 /71 , Respiratory Rate 18 , O2 SAT 98 , Room Air, O2 Flow Rate 3 . Vital Sign Comment: [] Latest Mclean Fall Score: 85 Fall Risk: High Risk Safety Measures: Call light Within Reach, Bed Alarm Zone 2, Side Rails Side Rails x3, Bed position Low and Locked. Fall Precautions: Yellow Socks Yellow Gown Door Sign Patient Fall Education Report given to [Malik Pantoja RN].
[2020-01-15 07:34] LABS: ALBUMIN/GLOBULIN RATIO 0.5 (1.0-2.7); BILIRUBIN,TOTAL 0.5 MG/DL (0.2-1.0); CALCIUM 7.3 MG/DL (8.5-10.1); CREATININE 4.8 MG/DL (0.55-1.30); PHOSPHORUS 3.6 MG/DL (2.5-4.9); POTASSIUM 3.3 MMOL/L (3.5-5.1)
--- NOTE | 2020-01-15 07:49 | NUR ---
NURSE NOTES: Received report from AMARILIS Dupont. Patient seen in bed, eating breakfast, AAOX4, able to make needs known. On room air, breathing is even and unlabored with no signs of distress or SOB. RN was endorsed by previous shift that patient had 2 bowel movements. Right jugular HD cath noted; dressing c/d/i. IV intact and running IVF as ordered. Bed locked and in lowest position. Bed alarm on. Call light in reach. Will continue plan of care.
--- NOTE | 2020-01-15 07:57 | General Progress Note ---
Subjective ROS Limited/Unobtainable: No Allergies: Coded Allergies: No Known Allergies (Unverified , 04/21/18) Objective Last 24 Hour Vital Signs Date Time Temp Pulse Resp B/P (MAP) Pulse Ox O2 Delivery O2 Flow Rate FiO2 01/15/20 04:00 97.4 69 18 150/71 (97) 98 01/14/20 23:35 98.1 75 18 158/78 (104) 97 01/14/20 20:53 Room Air 01/14/20 20:00 97.5 70 18 137/78 (97) 99 01/14/20 16:00 97.8 65 18 121/58 (79) 99 01/14/20 11:41 97.6 63 18 116/60 (78) 98 01/14/20 09:00 Room Air 01/14/20 08:00 97.8 73 17 124/62 (82) 98 Intake and Output 01/14/20 01/15/20 19:00 07:00 Intake Total 1100 ml 785 ml Output Total 400 ml Balance 1100 ml 385 ml Intake Oral 1100 ml 400 ml IV Total 110 ml Blood Product 275 ml Output Urine Total 400 ml # Voids 2 # Bowel Movements 7 3 Laboratory Tests 01/14/20 08:49: Stool Occult Blood Negative 01/14/20 11:52: POC Whole Blood Glucose 158H 01/14/20 15:51: POC Whole Blood Glucose 119H 01/14/20 18:50: Urine Color Pale yellow, Urine Appearance Slightly cloudy, Urine pH 5, Urine Specific [place] 1.015, Urine Protein 2+H, Urine Glucose (UA) Negative, Urine Ketones Negative, Urine Blood 1+H, Urine Nitrite Negative, Urine Bilirubin Negative, Urine Urobilinogen Normal, Urine Leukocyte Esterase Negative, Urine RBC 2-4H, Urine WBC 0-2, Urine Squamous Epithelial Cells Occasional, Urine Amorphous Sediment ModerateH, Urine Bacteria Few 01/14/20 21:28: POC Whole Blood Glucose 118H 01/15/20 05:28: POC Whole Blood Glucose 62L 01/15/20 05:30: POC Whole Blood Glucose 63L 01/15/20 05:40: White Blood Count 12.5H, Red Blood Count 2.86L, Hemoglobin 8.9L, Hematocrit 26.7L, Mean Corpuscular Volume 93, Mean Corpuscular Hemoglobin 31.1H, Mean Corpuscular Hemoglobin Concent 33.4, Red Cell Distribution Width 14.6, Platelet Count 139L, Mean Platelet Volume 5.8L, Neutrophils (%) (Auto) , Lymphocytes (%) (Auto) , Monocytes (%) (Auto) , Eosinophils (%) (Auto) , Basophils (%) (Auto) , Neutrophils % (Manual) [Pending], Lymphocytes % (Manual) [Pending], Platelet Estimate [Pending], Platelet Morphology [Pending], Sodium Level 138, Potassium Level 3.3L, Chloride Level 105, Carbon Dioxide Level 22, Anion Gap 12, Blood Urea Nitrogen 43H, Creatinine 4.8H, Estimat Glomerular Filtration Rate 12.3, Glucose Level 69L, Calcium Level 7.3L, Phosphorus Level 3.6, Magnesium Level 1.8, Total Bilirubin 0.5, Aspartate Amino Transf (AST/SGOT) 17, Alanine Aminotransferase (ALT/SGPT) 16, Alkaline Phosphatase 107, Total Protein 6.0L, Albumin 2.0L, Globulin 4.0, Albumin/Globulin Ratio 0.5L 01/15/20 06:00: POC Whole Blood Glucose 78 Height (Feet): 5 Height (Inches): 4.00 Weight (Pounds): 99 General Appearance: no apparent distress EENT: PERRL/EOMI Neck: supple Cardiovascular: normal rate Respiratory/Chest: decreased breath sounds Abdomen: hypoactive bowel sounds Extremities: non-tender Assessment/Plan Problem List: (1) Gallstones ICD Codes: K80.20 - Calculus of gallbladder without cholecystitis without obstruction SNOMED: 811992543 (2) Renal failure ICD Codes: N19 - Unspecified kidney failure SNOMED: 36506217 Qualifiers: Qualified Codes: N17.9 - Acute kidney failure, unspecified (3) Anemia ICD Codes: D64.9 - Anemia, unspecified SNOMED: 274191681 Qualifiers: Qualified Codes: D64.9 - Anemia, unspecified (4) Diabetes ICD Codes: E11.9 - Type 2 diabetes mellitus without complications SNOMED: 66799953 Status: stable Assessment/Plan: s/p EGD and colonoscopy s/p ERCP and stenting needs ercp and stent removal in 8-12 weeks fu surg recs HD per nephrology fu labs protonix po daily repeat cbc re check stool ob>>> neg León Lambert MD Jan 15, 2020 07:57
[2020-01-15 08:00] VITALS: BP 136/76
--- NOTE | 2020-01-15 08:13 | Pulmonology Progress Note ---
Subjective ROS Limited/Unobtainable: No Interval Events: None new Constitutional: Reports: no symptoms HEENT: Repors: no symptoms Respiratory: Reports: no symptoms Cardiovascular: Reports: no symptoms Gastrointestinal/Abdominal: Reports: no symptoms Genitourinary: Reports: no symptoms Allergies: Coded Allergies: No Known Allergies (Unverified , 04/21/18) Objective Last 24 Hour Vital Signs Date Time Temp Pulse Resp B/P (MAP) Pulse Ox O2 Delivery O2 Flow Rate FiO2 01/15/20 04:00 97.4 69 18 150/71 (97) 98 01/14/20 23:35 98.1 75 18 158/78 (104) 97 01/14/20 20:53 Room Air 01/14/20 20:00 97.5 70 18 137/78 (97) 99 01/14/20 16:00 97.8 65 18 121/58 (79) 99 01/14/20 11:41 97.6 63 18 116/60 (78) 98 01/14/20 09:00 Room Air Intake and Output 01/14/20 01/15/20 19:00 07:00 Intake Total 1100 ml 785 ml Output Total 400 ml Balance 1100 ml 385 ml Intake Oral 1100 ml 400 ml IV Total 110 ml Blood Product 275 ml Output Urine Total 400 ml # Voids 2 # Bowel Movements 7 3 General Appearance: no acute distress HEENT: normocephalic Respiratory: chest wall non-tender, lungs clear Cardiovascular: normal peripheral pulses Abdomen: normal bowel sounds Microbiology Date/Time Source Procedure Growth Status 01/14/20 18:50 Indwelling Cath Urine Culture - Preliminary NO GROWTH AFTER 24 HOURS Resulted Laboratory Tests 01/14/20 08:49: Stool Occult Blood Negative 01/14/20 11:52: POC Whole Blood Glucose 158H 01/14/20 15:51: POC Whole Blood Glucose 119H 01/14/20 18:50: Urine Color Pale yellow, Urine Appearance Slightly cloudy, Urine pH 5, Urine Specific [place] 1.015, Urine Protein 2+H, Urine Glucose (UA) Negative, Urine Ketones Negative, Urine Blood 1+H, Urine Nitrite Negative, Urine Bilirubin Negative, Urine Urobilinogen Normal, Urine Leukocyte Esterase Negative, Urine RBC 2-4H, Urine WBC 0-2, Urine Squamous Epithelial Cells Occasional, Urine Amorphous Sediment ModerateH, Urine Bacteria Few 01/14/20 21:28: POC Whole Blood Glucose 118H 01/15/20 05:28: POC Whole Blood Glucose 62L 01/15/20 05:30: POC Whole Blood Glucose 63L 01/15/20 05:40: White Blood Count 12.5H, Red Blood Count 2.86L, Hemoglobin 8.9L, Hematocrit 26.7L, Mean Corpuscular Volume 93, Mean Corpuscular Hemoglobin 31.1H, Mean Corpuscular Hemoglobin Concent 33.4, Red Cell Distribution Width 14.6, Platelet Count 139L, Mean Platelet Volume 5.8L, Neutrophils (%) (Auto) , Lymphocytes (%) (Auto) , Monocytes (%) (Auto) , Eosinophils (%) (Auto) , Basophils (%) (Auto) , Neutrophils % (Manual) [Pending], Lymphocytes % (Manual) [Pending], Platelet Estimate [Pending], Platelet Morphology [Pending], Sodium Level 138, Potassium Level 3.3L, Chloride Level 105, Carbon Dioxide Level 22, Anion Gap 12, Blood Urea Nitrogen 43H, Creatinine 4.8H, Estimat Glomerular Filtration Rate 12.3, Glucose Level 69L, Calcium Level 7.3L, Phosphorus Level 3.6, Magnesium Level 1.8, Total Bilirubin 0.5, Aspartate Amino Transf (AST/SGOT) 17, Alanine Aminotransferase (ALT/SGPT) 16, Alkaline Phosphatase 107, Total Protein 6.0L, Albumin 2.0L, Globulin 4.0, Albumin/Globulin Ratio 0.5L 01/15/20 06:00: POC Whole Blood Glucose 78 Current Medications Medications (Trade) Dose Ordered Sig/Jamal Route PRN Reason Start Time Stop Time Status Last Admin Dose Admin Ceftriaxone Sodium 1 gm/ Dextrose 55 ml @ 110 mls/hr Q24H IVPB 01/09/20 08:00 01/16/20 07:59 01/14/20 08:56 Chlorhexidine Gluconate (Jen-Hex 2%) 1 applic DAILY@1999 TOPIC 01/10/20 20:00 04/09/20 19:59 01/14/20 22:17 Dextrose (Dextrose 50%) 25 ml Q30M PRN IV Hypoglycemia 01/08/20 04:15 04/07/20 04:14 01/09/20 12:09 Dextrose (Dextrose 50%) 50 ml Q30M PRN IV Hypoglycemia 01/08/20 04:15 04/07/20 04:14 Doxycycline Hyclate 100 mg/ Dextrose 110 ml @ 110 mls/hr Q12HR IV 01/14/20 14:00 01/21/20 13:59 01/14/20 23:14 Epoetin Andre (Epoetin Andre(ESRD on dialysis)) 6,000 unit THU- SUBQ 01/11/20 21:00 04/10/20 20:59 01/13/20 22:03 Insulin Aspart (NovoLOG) BEFORE MEALS AND HS SUBQ 01/08/20 06:30 04/07/20 06:29 01/14/20 11:54 Loperamide HCl (Imodium) 2 mg Q8H PRN ORAL Diarrhea 01/14/20 15:15 02/13/20 15:14 01/15/20 01:47 Mirtazapine (Remeron) 7.5 mg QHS PRN ORAL insomnia 01/10/20 00:30 04/09/20 00:29 Ondansetron HCl (Zofran) 4 mg Q6H PRN IVP Nausea & Vomiting 01/12/20 16:30 02/11/20 16:29 01/12/20 16:23 Pantoprazole (Protonix) 40 mg DAILY ORAL 01/14/20 09:00 02/13/20 08:59 01/14/20 08:56 Tamsulosin HCl (Flomax) 0.4 mg BID ORAL 01/10/20 13:00 02/08/20 20:59 01/14/20 17:07 Assessment/Plan Assessment/Plan ASSESSMENT AND PLAN: 1. Sinus bradycardia. 2. Profound anemia, status post blood transfusion. 3. Mild pulmonary hypertension 4. Probable pneumonia Agree with broad-spectrum antibiotics. Started on Doxy for atypicals Mild leucocytosis noted saturating well on RA S/p hemodialysis Nataliya Mclaughlin Omar Syed MD Jan 15, 2020 08:13
[2020-01-15] MEDS: Tamsulosin 0.4mg cap ORAL SCH ×2 (08:53→17:28)
[2020-01-15] MEDS: cefTRIAXone 1 GM in D5W 55 ML IVPB SCH (08:56)
[2020-01-15] MEDS: Doxycycline 100mg in D5W 110ml IV SCH ×2 (10:10→20:48)
--- NOTE | 2020-01-15 10:26 | Surgery Progress Note ---
Surgery Progress Note Subjective Additional Comments leukocytosis improving no n/v comfortable no complaints no bleeding multiple loose BM Objective Last 24 Hour Vital Signs Date Time Temp Pulse Resp B/P (MAP) Pulse Ox O2 Delivery O2 Flow Rate FiO2 01/15/20 09:00 Room Air 01/15/20 08:00 97.7 65 17 136/76 (96) 98 01/15/20 04:00 97.4 69 18 150/71 (97) 98 01/14/20 23:35 98.1 75 18 158/78 (104) 97 01/14/20 20:53 Room Air 01/14/20 20:00 97.5 70 18 137/78 (97) 99 01/14/20 16:00 97.8 65 18 121/58 (79) 99 01/14/20 11:41 97.6 63 18 116/60 (78) 98 I&O Intake and Output 01/14/20 01/15/20 19:00 07:00 Intake Total 1100 ml 785 ml Output Total 400 ml Balance 1100 ml 385 ml Intake Oral 1100 ml 400 ml IV Total 110 ml Blood Product 275 ml Output Urine Total 400 ml # Voids 2 # Bowel Movements 7 3 Dressing: saturated Cardiovascular: RSR Respiratory: decreased breath sounds Abdomen: non-tender, present bowel sounds Extremities: no edema, no tenderness, no cyanosis Laboratory Tests Test 01/14/20 11:52 01/14/20 15:51 01/14/20 18:50 01/14/20 21:28 POC Whole Blood Glucose 158 MG/DL (74-106) H 119 MG/DL (74-106) H 118 MG/DL (74-106) H Urine Color Pale yellow Urine Appearance Slightly cloudy Urine pH 5 (4.5-8.0) Urine Specific [place] 1.015 (1.005-1.035) Urine Protein 2+ (NEGATIVE) H Urine Glucose (UA) Negative (NEGATIVE) Urine Ketones Negative (NEGATIVE) Urine Blood 1+ (NEGATIVE) H Urine Nitrite Negative (NEGATIVE) Urine Bilirubin Negative (NEGATIVE) Urine Urobilinogen Normal MG/DL (0.0-1.0) Urine Leukocyte Esterase Negative (NEGATIVE) Urine RBC 2-4 /HPF (0 - 0) H Urine WBC 0-2 /HPF (0 - 0) Urine Squamous Epithelial Cells Occasional /LPF Urine Amorphous Sediment Moderate /LPF (NONE) H Urine Bacteria Few /HPF (NONE) Test 01/15/20 05:28 01/15/20 05:30 01/15/20 05:40 01/15/20 06:00 POC Whole Blood Glucose 62 MG/DL (74-106) L 63 MG/DL (74-106) L 78 MG/DL (74-106) White Blood Count 12.5 K/UL (4.8-10.8) H Red Blood Count 2.86 M/UL (4.70-6.10) L Hemoglobin 8.9 G/DL (14.2-18.0) L Hematocrit 26.7 % (42.0-52.0) L Mean Corpuscular Volume 93 FL (80-99) Mean Corpuscular Hemoglobin 31.1 PG (27.0-31.0) H Mean Corpuscular Hemoglobin Concent 33.4 G/DL (32.0-36.0) Red Cell Distribution Width 14.6 % (11.6-14.8) Platelet Count 139 K/UL (150-450) L Mean Platelet Volume 5.8 FL (6.5-10.1) L Neutrophils (%) (Auto) % (45.0-75.0) Lymphocytes (%) (Auto) % (20.0-45.0) Monocytes (%) (Auto) % (1.0-10.0) Eosinophils (%) (Auto) % (0.0-3.0) Basophils (%) (Auto) % (0.0-2.0) Neutrophils % (Manual) Pending Lymphocytes % (Manual) Pending Platelet Estimate Pending Platelet Morphology Pending Sodium Level 138 MMOL/L (136-145) Potassium Level 3.3 MMOL/L (3.5-5.1) L Chloride Level 105 MMOL/L (98-107) Carbon Dioxide Level 22 MMOL/L (21-32) Anion Gap 12 mmol/L (5-15) Blood Urea Nitrogen 43 mg/dL (7-18) H Creatinine 4.8 MG/DL (0.55-1.30) H Estimat Glomerular Filtration Rate 12.3 mL/min (>60) Glucose Level 69 MG/DL (74-106) L Calcium Level 7.3 MG/DL (8.5-10.1) L Phosphorus Level 3.6 MG/DL (2.5-4.9) Magnesium Level 1.8 MG/DL (1.8-2.4) Total Bilirubin 0.5 MG/DL (0.2-1.0) Aspartate Amino Transf (AST/SGOT) 17 U/L (15-37) Alanine Aminotransferase (ALT/SGPT) 16 U/L (12-78) Alkaline Phosphatase 107 U/L (46-116) Total Protein 6.0 G/DL (6.4-8.2) L Albumin 2.0 G/DL (3.4-5.0) L Globulin 4.0 g/dL Albumin/Globulin Ratio 0.5 (1.0-2.7) L Plan Problems: (1) Bleeding due to dialysis catheter placement Assessment & Plan: 64-year-old male recently had a right temporary internal jugular dialysis catheter placement by interventional radiology. Patient has been oozing and bleeding from the site since multiple dressings have been changed surgeries been called to evaluate assist with care. Patient seen, patient evaluated, chart reviewed. The site was evaluated dressings were removed there was a large hematoma identified. Hematoma was evacuated removed and site was cleaned with normal saline and gauze. once cleaned was identified that the lateral stitch was oozing and was able to be tightened with surgical instruments the bedside. Once the stitch was tightened down the hemostasis identified pressure was held for 10 minutes and then monitored for a few minutes and hemostasis noted. New dressing applied. Will monitor site. Thank you for your participation's care (2) Hyperkalemia (3) Anemia (4) Ascites (5) Hypoglycemia (6) Pancreatitis (7) Renal failure (8) Sepsis (9) Metabolic acidosis (10) Gallstones (11) Community acquired pneumonia (12) Diabetes (13) Failure to thrive Assessment & Plan: patient with multiple loose BM developing incontinence associated dermatitis around perineum discussed with team monitor for incontinence change accordingly apply triad after clean up thank you (14) Ureter obstruction (15) JONA (acute kidney injury) (16) Acute cholecystitis (17) Choledocholithiasis with acute cholecystitis Assessment & Plan: discussed with GI Recommend cholecystectomy when patient agreeable and stable and medically clear ercp Gallbladder is filled with gallstones. The common bile duct is also filled with gallstones. Common bile duct is dilated, measuring 11 mm in diameter. There is mild central intrahepatic biliary ductal dilatation. No obstructing ampullary mass demonstrated. Considerable signal dropout on the fat saturated images in the liver indicates fatty liver. The pancreas, spleen, adrenals are unremarkable. The kidneys demonstrate bilateral cysts. No pelvic mass or adenopathy. Free intraperitoneal fluid is demonstrated. This is mostly seen surrounding the liver. Impression: Somewhat limited exam, as described Cholelithiasis. There is also choledocholithiasis and biliary ductal dilatation. Although choledocholithiasis was reported on the prior study, calculi are much more extensive within the common bile duct on the current exam Ascites fluid, increased in extent from previous study Bilateral renal cyst Bilateral pleural effusions (18) Dehydration (19) Bradycardia (20) Hypothermia (21) Rectal bleeding (22) Gall bladder stones (23) Gallstone pancreatitis (24) GI Martin Sterling Jan 15, 2020 10:26
--- NOTE | 2020-01-15 10:41 | Hematology/Onc Progress Note ---
Assessment/Plan Assessment/Plan Assessment and Recs # Anemia of chronic disease - likely multifactorial, with sepsis, poorly controlled DM2, and esrd --> Anemia workup has been ordered, reviewed --> No evidence of hemolysis is noted, peripheral smear has been reviewed. --> Hgb goal >7. Transfuse prn. --> Epogen started sq --> hgb 5-->5.9-->9.4->9.7-->8.9 ==> hold off on iron --> occult ++ seen by Gi --> colo for 01/10 # Thrombocytopenia likely due to liver disease/cirrhosis-->resolved, also now with sepsis/pna, elev la --> Medications have been reviewed --> if the plt count less than 10k, transfuse immediately. If less than 20k and febrile, transfuse --> If less than 50k and bleeding, transfuse. If neurosurgical bleed, transfuse as well --> plt 168->128-->100-->102-->106->139 --> us abd with cholelithiasis # Sepsis - on fluids and abx --> iamging as needed --> consider abx [email or web address] # Dehydration --> per renal # Choledocholithiasis with acute cholecystitis --> ERCP when stable -> seen by gi # Dvt ppx heparin sq The timing of this note does not necessarily reflect the time of the patient was seen. Greatly appreciate consultation! Subjective Constitutional: Denies: no symptoms, chills, fever, malaise, weakness, other HEENT: Denies: no symptoms, eye pain, blurred vision, tearing, double vision, ear pain, ear discharge, nose pain, nose congestion, throat pain, throat swelling, mouth pain, mouth swelling, other Cardiovascular: Denies: no symptoms, chest pain, edema, irregular heart rate, lightheadedness, palpitations, syncope, other Gastrointestinal/Abdominal: Denies: no symptoms, abdomen distended, abdominal pain, black stools, tarry stools, blood in stool, constipated, diarrhea, difficulty swallowing, nausea, poor appetite, poor fluid intake, rectal bleeding, vomiting, other Genitourinary: Denies: no symptoms, burning, discharge, frequency, flank pain, hematuria, incontinence, pain, urgency, other Neurologic/Psychiatric: Denies: no symptoms, anxiety, depressed, emotional problems, headache, numbness, paresthesia, pre-existing deficit, seizure, tingling, tremors, weakness, other Endocrine: Denies: no symptoms, excessive sweating, flushing, intolerance to cold, intolerance to heat, increased hunger, increased thirst, increased urine, unexplained weight gain, unexplained weight loss, other Allergies: Coded Allergies: No Known Allergies (Unverified , 04/21/18) Subjective 01/09 labs reviewed, hgb low, on epo and hd today 01/10 for colo today, no bleeding, meds reviewed, bowel prep+ 01/11 for hd today, no bleeding, labs noted, hgb stable 01/12 labs reviewed, meds noted, no night sweats, improved plt 01/14 unlabored breahting, no night sweats, plt remains low, no night sweats Objective Objective Current Medications Medications (Trade) Dose Ordered Sig/Jamal Route PRN Reason Start Time Stop Time Status Last Admin Dose Admin Ceftriaxone Sodium 1 gm/ Dextrose 55 ml @ 110 mls/hr Q24H IVPB 01/09/20 08:00 01/16/20 07:59 01/15/20 08:56 Chlorhexidine Gluconate (Jen-Hex 2%) 1 applic DAILY@1999 TOPIC 01/10/20 20:00 04/09/20 19:59 01/14/20 22:17 Dextrose (Dextrose 50%) 25 ml Q30M PRN IV Hypoglycemia 01/08/20 04:15 04/07/20 04:14 01/09/20 12:09 Dextrose (Dextrose 50%) 50 ml Q30M PRN IV Hypoglycemia 01/08/20 04:15 04/07/20 04:14 Doxycycline Hyclate 100 mg/ Dextrose 110 ml @ 110 mls/hr Q12HR IV 01/14/20 14:00 01/21/20 13:59 01/15/20 10:10 Epoetin Andre (Epoetin Andre(ESRD on dialysis)) 6,000 unit MON-WED-THU SUBQ 01/11/20 21:00 04/10/20 20:59 01/13/20 22:03 Insulin Aspart (NovoLOG) BEFORE MEALS AND HS SUBQ 01/08/20 06:30 04/07/20 06:29 01/14/20 11:54 Loperamide HCl (Imodium) 2 mg Q8H PRN ORAL Diarrhea 01/14/20 15:15 02/13/20 15:14 01/15/20 10:09 Mirtazapine (Remeron) 7.5 mg QHS PRN ORAL insomnia 01/10/20 00:30 04/09/20 00:29 Ondansetron HCl (Zofran) 4 mg Q6H PRN IVP Nausea & Vomiting 01/12/20 16:30 02/11/20 16:29 01/12/20 16:23 Pantoprazole (Protonix) 40 mg DAILY ORAL 01/14/20 09:00 02/13/20 08:59 01/15/20 08:53 Potassium Chloride (K-Dur) 20 meq ONCE ORAL 01/15/20 09:30 01/15/20 11:00 01/15/20 10:09 Tamsulosin HCl (Flomax) 0.4 mg BID ORAL 01/10/20 13:00 02/08/20 20:59 01/15/20 08:53 Last 24 Hour Vital Signs Date Time Temp Pulse Resp B/P (MAP) Pulse Ox O2 Delivery O2 Flow Rate FiO2 01/15/20 09:00 Room Air 01/15/20 08:00 97.7 65 17 136/76 (96) 98 01/15/20 04:00 97.4 69 18 150/71 (97) 98 01/14/20 23:35 98.1 75 18 158/78 (104) 97 01/14/20 20:53 Room Air 01/14/20 20:00 97.5 70 18 137/78 (97) 99 01/14/20 16:00 97.8 65 18 121/58 (79) 99 01/14/20 11:41 97.6 63 18 116/60 (78) 98 01/14/20 09:00 Room Air 01/14/20 08:00 97.8 73 17 124/62 (82) 98 01/14/20 04:00 98.0 65 18 129/59 (82) 97 01/14/20 03:57 Room Air 01/14/20 00:00 98.1 62 18 125/65 (85) 97 01/13/20 22:48 Room Air 01/13/20 20:00 97.8 68 18 117/86 (96) 98 01/13/20 16:00 97.1 65 14 106/55 (72) 96 01/13/20 15:10 97.4 65 18 110/64 (79) 99 01/13/20 15:00 97.1 64 17 113/64 (80) 99 01/13/20 14:30 96.9 67 17 126/71 (89) 98 01/13/20 14:23 67 17 01/13/20 12:00 97.4 67 20 110/54 (72) 96 Intake and Output 01/14/20 01/15/20 19:00 07:00 Intake Total 1100 ml 785 ml Output Total 400 ml Balance 1100 ml 385 ml Intake Oral 1100 ml 400 ml IV Total 110 ml Blood Product 275 ml Output Urine Total 400 ml # Voids 2 # Bowel Movements 7 3 Labs Test 01/12/20 11:54 01/12/20 16:58 01/12/20 20:21 01/13/20 05:35 POC Whole Blood Glucose 108 MG/DL (74-106) 83 MG/DL (74-106) 233 MG/DL (74-106) White Blood Count 13.7 K/UL (4.8-10.8) Red Blood Count 2.86 M/UL (4.70-6.10) Hemoglobin 8.9 G/DL (14.2-18.0) Hematocrit 26.1 % (42.0-52.0) Mean Corpuscular Volume 91 FL (80-99) Mean Corpuscular Hemoglobin 31.2 PG (27.0-31.0) Mean Corpuscular Hemoglobin Concent 34.2 G/DL (32.0-36.0) Red Cell Distribution Width 14.7 % (11.6-14.8) Platelet Count 106 K/UL (150-450) Mean Platelet Volume 7.3 FL (6.5-10.1) Neutrophils (%) (Auto) % (45.0-75.0) Lymphocytes (%) (Auto) % (20.0-45.0) Monocytes (%) (Auto) % (1.0-10.0) Eosinophils (%) (Auto) % (0.0-3.0) Basophils (%) (Auto) % (0.0-2.0) Differential Total Cells Counted 100 Neutrophils % (Manual) 88 % (45-75) Lymphocytes % (Manual) 9 % (20-45) Monocytes % (Manual) 3 % (1-10) Eosinophils % (Manual) 0 % (0-3) Basophils % (Manual) 0 % (0-2) Band Neutrophils 0 % (0-8) Platelet Estimate Decreased Platelet Morphology Normal Hypochromasia 1+ Anisocytosis 1+ Sodium Level 141 MMOL/L (136-145) Potassium Level 3.4 MMOL/L (3.5-5.1) Chloride Level 107 MMOL/L (98-107) Carbon Dioxide Level 27 MMOL/L (21-32) Anion Gap 7 mmol/L (5-15) Blood Urea Nitrogen 34 mg/dL (7-18) Creatinine 3.9 MG/DL (0.55-1.30) Estimat Glomerular Filtration Rate 15.6 mL/min (>60) Glucose Level 72 MG/DL (74-106) Calcium Level 7.5 MG/DL (8.5-10.1) Phosphorus Level 3.4 MG/DL (2.5-4.9) Magnesium Level 1.9 MG/DL (1.8-2.4) Total Bilirubin 0.5 MG/DL (0.2-1.0) Aspartate Amino Transf (AST/SGOT) 19 U/L (15-37) Alanine Aminotransferase (ALT/SGPT) 11 U/L (12-78) Alkaline Phosphatase 92 U/L (46-116) C-Reactive Protein, Quantitative 14.1 mg/dL (0.00-0.90) Pro-B-Type Natriuretic Peptide 62550 pg/mL (0-125) Total Protein 5.8 G/DL (6.4-8.2) Albumin 2.2 G/DL (3.4-5.0) Globulin 3.6 g/dL Albumin/Globulin Ratio 0.6 (1.0-2.7) Test 01/13/20 06:00 01/13/20 11:26 01/13/20 16:38 01/14/20 05:00 POC Whole Blood Glucose 120 MG/DL (74-106) 124 MG/DL (74-106) White Blood Count 13.8 K/UL (4.8-10.8) Red Blood Count 2.45 M/UL (4.70-6.10) Hemoglobin 7.6 G/DL (14.2-18.0) Hematocrit 22.5 % (42.0-52.0) Mean Corpuscular Volume 92 FL (80-99) Mean Corpuscular Hemoglobin 31.2 PG (27.0-31.0) Mean Corpuscular Hemoglobin Concent 33.9 G/DL (32.0-36.0) Red Cell Distribution Width 15.0 % (11.6-14.8) Platelet Count 123 K/UL (150-450) Mean Platelet Volume 6.9 FL (6.5-10.1) Neutrophils (%) (Auto) % (45.0-75.0) Lymphocytes (%) (Auto) % (20.0-45.0) Monocytes (%) (Auto) % (1.0-10.0) Eosinophils (%) (Auto) % (0.0-3.0) Basophils (%) (Auto) % (0.0-2.0) Differential Total Cells Counted 100 Neutrophils % (Manual) 90 % (45-75) Lymphocytes % (Manual) 5 % (20-45) Monocytes % (Manual) 1 % (1-10) Eosinophils % (Manual) 2 % (0-3) Basophils % (Manual) 0 % (0-2) Band Neutrophils 2 % (0-8) Platelet Estimate Decreased Platelet Morphology Normal Anisocytosis 1+ Sodium Level 143 MMOL/L (136-145) Potassium Level 3.5 MMOL/L (3.5-5.1) Chloride Level 110 MMOL/L (98-107) Carbon Dioxide Level 25 MMOL/L (21-32) Anion Gap 8 mmol/L (5-15) Blood Urea Nitrogen 42 mg/dL (7-18) Creatinine 4.5 MG/DL (0.55-1.30) Estimat Glomerular Filtration Rate 13.3 mL/min (>60) Glucose Level 112 MG/DL (74-106) Uric Acid 3.7 MG/DL (2.6-7.2) Calcium Level 7.3 MG/DL (8.5-10.1) Phosphorus Level 3.7 MG/DL (2.5-4.9) Magnesium Level 1.9 MG/DL (1.8-2.4) Total Bilirubin 0.4 MG/DL (0.2-1.0) Aspartate Amino Transf (AST/SGOT) 18 U/L (15-37) Alanine Aminotransferase (ALT/SGPT) 14 U/L (12-78) Alkaline Phosphatase 91 U/L (46-116) C-Reactive Protein, Quantitative 19.7 mg/dL (0.00-0.90) Pro-B-Type Natriuretic Peptide 9746 pg/mL (0-125) Total Protein 6.0 G/DL (6.4-8.2) Albumin 2.0 G/DL (3.4-5.0) Globulin 4.0 g/dL Albumin/Globulin Ratio 0.5 (1.0-2.7) Test 01/14/20 08:49 01/14/20 11:52 01/14/20 15:51 01/14/20 18:50 Stool Occult Blood Negative (NEGATIVE) POC Whole Blood Glucose 158 MG/DL (74-106) 119 MG/DL (74-106) Urine Color Pale yellow Urine Appearance Slightly cloudy Urine pH 5 (4.5-8.0) Urine Specific [place] 1.015 (1.005-1.035) Urine Protein 2+ (NEGATIVE) Urine Glucose (UA) Negative (NEGATIVE) Urine Ketones Negative (NEGATIVE) Urine Blood 1+ (NEGATIVE) Urine Nitrite Negative (NEGATIVE) Urine Bilirubin Negative (NEGATIVE) Urine Urobilinogen Normal MG/DL (0.0-1.0) Urine Leukocyte Esterase Negative (NEGATIVE) Urine RBC 2-4 /HPF (0 - 0) Urine WBC 0-2 /HPF (0 - 0) Urine Squamous Epithelial Cells Occasional /LPF Urine Amorphous Sediment Moderate /LPF (NONE) Urine Bacteria Few /HPF (NONE) Test 01/14/20 21:28 01/15/20 05:28 01/15/20 05:30 01/15/20 05:40 POC Whole Blood Glucose 118 MG/DL (74-106) 62 MG/DL (74-106) 63 MG/DL (74-106) White Blood Count 12.5 K/UL (4.8-10.8) Red Blood Count 2.86 M/UL (4.70-6.10) Hemoglobin 8.9 G/DL (14.2-18.0) Hematocrit 26.7 % (42.0-52.0) Mean Corpuscular Volume 93 FL (80-99) Mean Corpuscular Hemoglobin 31.1 PG (27.0-31.0) Mean Corpuscular Hemoglobin Concent 33.4 G/DL (32.0-36.0) Red Cell Distribution Width 14.6 % (11.6-14.8) Platelet Count 139 K/UL (150-450) Mean Platelet Volume 5.8 FL (6.5-10.1) Neutrophils (%) (Auto) % (45.0-75.0) Lymphocytes (%) (Auto) % (20.0-45.0) Monocytes (%) (Auto) % (1.0-10.0) Eosinophils (%) (Auto) % (0.0-3.0) Basophils (%) (Auto) % (0.0-2.0) Differential Total Cells Counted 100 Neutrophils % (Manual) 86 % (45-75) Lymphocytes % (Manual) 11 % (20-45) Monocytes % (Manual) 0 % (1-10) Eosinophils % (Manual) 3 % (0-3) Basophils % (Manual) 0 % (0-2) Band Neutrophils 0 % (0-8) Platelet Estimate Decreased Platelet Morphology Normal Anisocytosis 1+ Sodium Level 138 MMOL/L (136-145) Potassium Level 3.3 MMOL/L (3.5-5.1) Chloride Level 105 MMOL/L (98-107) Carbon Dioxide Level 22 MMOL/L (21-32) Anion Gap 12 mmol/L (5-15) Blood Urea Nitrogen 43 mg/dL (7-18) Creatinine 4.8 MG/DL (0.55-1.30) Estimat Glomerular Filtration Rate 12.3 mL/min (>60) Glucose Level 69 MG/DL (74-106) Calcium Level 7.3 MG/DL (8.5-10.1) Phosphorus Level 3.6 MG/DL (2.5-4.9) Magnesium Level 1.8 MG/DL (1.8-2.4) Total Bilirubin 0.5 MG/DL (0.2-1.0) Aspartate Amino Transf (AST/SGOT) 17 U/L (15-37) Alanine Aminotransferase (ALT/SGPT) 16 U/L (12-78) Alkaline Phosphatase 107 U/L (46-116) Total Protein 6.0 G/DL (6.4-8.2) Albumin 2.0 G/DL (3.4-5.0) Globulin 4.0 g/dL Albumin/Globulin Ratio 0.5 (1.0-2.7) Test 01/15/20 06:00 POC Whole Blood Glucose 78 MG/DL (74-106) Micro Microbiology Date/Time Source Procedure Growth Status 01/14/20 18:50 Indwelling Cath Urine Culture - Preliminary NO GROWTH AFTER 24 HOURS Resulted Height (Feet): 5 Height (Inches): 4.00 Weight (Pounds): 99 Objective Physical Exam Vitals: reviewed General: GCS 15, thin, other - Cold, Chronically Ill - Cachectic Heent: dry mucus membranes, full range of motion, supple, no meningismus Respiratory: chest non-tender, lungs clear, normal breath sounds Cardiovascular: bradycardia, 2+ radial (R) Gastrointestinal: other - Spider habitus, decreased bowel sound Musculoskeletal: back normal, normal range of motion, no calf tenderness Neurologic: oriented - x 2 Psychiatric: mood/affect normal Skin: pallor - Sallow and cold Guero Hernandez MD Jan 15, 2020 10:41
[2020-01-15 12:00] VITALS: BP 152/72
--- NOTE | 2020-01-15 12:11 | Nephrology Progress Note ---
Assessment/Plan Problem List: (1) JONA (acute kidney injury) (2) Hyperkalemia (3) Anemia (4) Metabolic acidosis (5) Ureter obstruction (6) Failure to thrive Assessment Renal failure acute, superimposed on chronic Hyperkalemia Acidosis Presented with severe anemia on admission, transfused 3 units packed RBCs since admission. History of hypertension History of diabetes mellitus 01/09/2020----PATIENT NEED EMERGENCY LIFE SAVING DIALYSIS Plan January 14: Patient due for dialysis today. Blood culture for the past 24 hours is negative. Continue to monitor CBC CRP and blood cultures and when appropriate to proceed with tunneled catheter placement. January 13: Patient's last dialysis January 11. Next dialysis tomorrow January 14. Patient still have a nontunneled catheter as may have underlying bacteremia. Surveillance blood cultures ordered. January 12: Patient dialyzed yesterday. Due for tunneled catheter placement today. Continue dialysis as needed. Patient has a Torres catheter now. January 11: Patient due for dialysis today. Continue per GI management. Labs reviewed. Will arrange for tunneled dialysis catheter and outpatient dialysis center placement. Urological evaluation pending. January 10: Patient was dialyzed January 08. Is undergoing GI evaluation. Labs reviewed. Due for dialysis again tomorrow. Urological evaluation for bladder retention pending. Insertion of temporary non tunneled dialysis catheter followed by dialysis to correct acidosis hyperkalemia, done yesterday Continue per consultants Monitor electrolytes and renal parameters Hemodialysis as needed Urology evaluation for urinary retention Per orders Subjective ROS Limited/Unobtainable: No Constitutional: Reports: malaise Objective Objective Last 24 Hour Vital Signs Date Time Temp Pulse Resp B/P (MAP) Pulse Ox O2 Delivery O2 Flow Rate FiO2 01/15/20 09:00 Room Air 01/15/20 08:00 97.7 65 17 136/76 (96) 98 01/15/20 04:00 97.4 69 18 150/71 (97) 98 01/14/20 23:35 98.1 75 18 158/78 (104) 97 01/14/20 20:53 Room Air 01/14/20 20:00 97.5 70 18 137/78 (97) 99 01/14/20 16:00 97.8 65 18 121/58 (79) 99 Intake and Output 01/14/20 01/15/20 19:00 07:00 Intake Total 1100 ml 785 ml Output Total 400 ml Balance 1100 ml 385 ml Intake Oral 1100 ml 400 ml IV Total 110 ml Blood Product 275 ml Output Urine Total 400 ml # Voids 2 # Bowel Movements 7 3 Current Medications Medications (Trade) Dose Ordered Sig/Jamal Route PRN Reason Start Time Stop Time Status Last Admin Dose Admin Ceftriaxone Sodium 1 gm/ Dextrose 55 ml @ 110 mls/hr Q24H IVPB 01/09/20 08:00 01/16/20 07:59 01/15/20 08:56 Chlorhexidine Gluconate (Jen-Hex 2%) 1 applic DAILY@2000 TOPIC 01/10/20 20:00 04/09/20 19:59 01/14/20 22:17 Dextrose (Dextrose 50%) 25 ml Q30M PRN IV Hypoglycemia 01/08/20 04:15 04/07/20 04:14 01/09/20 12:09 Dextrose (Dextrose 50%) 50 ml Q30M PRN IV Hypoglycemia 01/08/20 04:15 04/07/20 04:14 Doxycycline Hyclate 100 mg/ Dextrose 110 ml @ 110 mls/hr Q12HR IV 01/14/20 14:00 01/21/20 13:59 01/15/20 10:10 Epoetin Andre (Epoetin Andre(ESRD on dialysis)) 6,000 unit THU-THU-THU SUBQ 01/11/20 21:00 04/10/20 20:59 01/13/20 22:03 Insulin Aspart (NovoLOG) BEFORE MEALS AND HS SUBQ 01/08/20 06:30 04/07/20 06:29 01/14/20 11:54 Loperamide HCl (Imodium) 2 mg Q8H PRN ORAL Diarrhea 01/14/20 15:15 02/13/20 15:14 01/15/20 10:09 Mirtazapine (Remeron) 7.5 mg QHS PRN ORAL insomnia 01/10/20 00:30 04/09/20 00:29 Ondansetron HCl (Zofran) 4 mg Q6H PRN IVP Nausea & Vomiting 01/12/20 16:30 02/11/20 16:29 01/12/20 16:23 Pantoprazole (Protonix) 40 mg DAILY ORAL 01/14/20 09:00 02/13/20 08:59 01/15/20 08:53 Tamsulosin HCl (Flomax) 0.4 mg BID ORAL 01/10/20 13:00 02/08/20 20:59 01/15/20 08:53 Laboratory Tests 01/14/20 15:51: POC Whole Blood Glucose 119H 01/14/20 18:50: Urine Color Pale yellow, Urine Appearance Slightly cloudy, Urine pH 5, Urine Specific [place] 1.015, Urine Protein 2+H, Urine Glucose (UA) Negative, Urine Ketones Negative, Urine Blood 1+H, Urine Nitrite Negative, Urine Bilirubin Negative, Urine Urobilinogen Normal, Urine Leukocyte Esterase Negative, Urine RBC 2-4H, Urine WBC 0-2, Urine Squamous Epithelial Cells Occasional, Urine Amorphous Sediment ModerateH, Urine Bacteria Few 01/14/20 21:28: POC Whole Blood Glucose 118H 01/15/20 05:28: POC Whole Blood Glucose 62L 01/15/20 05:30: POC Whole Blood Glucose 63L 01/15/20 05:40: White Blood Count 12.5H, Red Blood Count 2.86L, Hemoglobin 8.9L, Hematocrit 26.7L, Mean Corpuscular Volume 93, Mean Corpuscular Hemoglobin 31.1H, Mean Corpuscular Hemoglobin Concent 33.4, Red Cell Distribution Width 14.6, Platelet Count 139L, Mean Platelet Volume 5.8L, Neutrophils (%) (Auto) , Lymphocytes (%) (Auto) , Monocytes (%) (Auto) , Eosinophils (%) (Auto) , Basophils (%) (Auto) , Differential Total Cells Counted 100, Neutrophils % (Manual) 86H, Lymphocytes % (Manual) 11L, Monocytes % (Manual) 0L, Eosinophils % (Manual) 3, Basophils % (Manual) 0, Band Neutrophils 0, Platelet Estimate DecreasedL, Platelet Morphology Normal, Anisocytosis 1+, Sodium Level 138, Potassium Level 3.3L, Chloride Level 105, Carbon Dioxide Level 22, Anion Gap 12, Blood Urea Nitrogen 43H, Creatinine 4.8H, Estimat Glomerular Filtration Rate 12.3, Glucose Level 69L , Calcium Level 7.3L, Phosphorus Level 3.6, Magnesium Level 1.8, Total Bilirubin 0.5, Aspartate Amino Transf (AST/SGOT) 17, Alanine Aminotransferase (ALT/SGPT) 16, Alkaline Phosphatase 107, Total Protein 6.0L, Albumin 2.0L, Globulin 4.0, Albumin/Globulin Ratio 0.5L 01/15/20 06:00: POC Whole Blood Glucose 78 01/15/20 11:28: POC Whole Blood Glucose 133H Height (Feet): 5 Height (Inches): 4.00 Weight (Pounds): 99 Cardiovascular: normal rate Respiratory/Chest: decreased breath sounds Abdomen: distended Objective No change Orlin Berrios MD Jan 15, 2020 12:11
--- NOTE | 2020-01-15 13:39 | Cardiology Progress Note ---
Assessment/Plan Assessment/Plan 1. Sinus bradycardia, resolved, possibly due to hypothermia, no cardiac intervention is required at this time. 2. HTN, stage II, start amlodipine 2.5mg daily. 2. Anemia, status post blood transfusion. 3. Mild pulmonary hypertension, 2D echocardiography in April 2018 had showed normal LV systolic and diastolic function. Subjective Subjective No cardiac events reported. Objective Last 24 Hour Vital Signs Date Time Temp Pulse Resp B/P (MAP) Pulse Ox O2 Delivery O2 Flow Rate FiO2 01/15/20 12:00 96.8 65 19 152/72 (98) 98 01/15/20 09:00 Room Air 01/15/20 08:00 97.7 65 17 136/76 (96) 98 01/15/20 04:00 97.4 69 18 150/71 (97) 98 01/14/20 23:35 98.1 75 18 158/78 (104) 97 01/14/20 20:53 Room Air 01/14/20 20:00 97.5 70 18 137/78 (97) 99 01/14/20 16:00 97.8 65 18 121/58 (79) 99 Intake and Output 01/14/20 01/15/20 19:00 07:00 Intake Total 1100 ml 785 ml Output Total 400 ml Balance 1100 ml 385 ml Intake Oral 1100 ml 400 ml IV Total 110 ml Blood Product 275 ml Output Urine Total 400 ml # Voids 2 # Bowel Movements 7 3 Laboratory Tests Test 01/14/20 15:51 01/14/20 18:50 01/14/20 21:28 01/15/20 05:28 POC Whole Blood Glucose 119 MG/DL (74-106) H 118 MG/DL (74-106) H 62 MG/DL (74-106) L Urine Color Pale yellow Urine Appearance Slightly cloudy Urine pH 5 (4.5-8.0) Urine Specific [place] 1.015 (1.005-1.035) Urine Protein 2+ (NEGATIVE) H Urine Glucose (UA) Negative (NEGATIVE) Urine Ketones Negative (NEGATIVE) Urine Blood 1+ (NEGATIVE) H Urine Nitrite Negative (NEGATIVE) Urine Bilirubin Negative (NEGATIVE) Urine Urobilinogen Normal MG/DL (0.0-1.0) Urine Leukocyte Esterase Negative (NEGATIVE) Urine RBC 2-4 /HPF (0 - 0) H Urine WBC 0-2 /HPF (0 - 0) Urine Squamous Epithelial Cells Occasional /LPF Urine Amorphous Sediment Moderate /LPF (NONE) H Urine Bacteria Few /HPF (NONE) Test 01/15/20 05:30 01/15/20 05:40 01/15/20 06:00 01/15/20 11:28 POC Whole Blood Glucose 63 MG/DL (74-106) L 78 MG/DL (74-106) 133 MG/DL (74-106) H White Blood Count 12.5 K/UL (4.8-10.8) H Red Blood Count 2.86 M/UL (4.70-6.10) L Hemoglobin 8.9 G/DL (14.2-18.0) L Hematocrit 26.7 % (42.0-52.0) L Mean Corpuscular Volume 93 FL (80-99) Mean Corpuscular Hemoglobin 31.1 PG (27.0-31.0) H Mean Corpuscular Hemoglobin Concent 33.4 G/DL (32.0-36.0) Red Cell Distribution Width 14.6 % (11.6-14.8) Platelet Count 139 K/UL (150-450) L Mean Platelet Volume 5.8 FL (6.5-10.1) L Neutrophils (%) (Auto) % (45.0-75.0) Lymphocytes (%) (Auto) % (20.0-45.0) Monocytes (%) (Auto) % (1.0-10.0) Eosinophils (%) (Auto) % (0.0-3.0) Basophils (%) (Auto) % (0.0-2.0) Differential Total Cells Counted 100 Neutrophils % (Manual) 86 % (45-75) H Lymphocytes % (Manual) 11 % (20-45) L Monocytes % (Manual) 0 % (1-10) L Eosinophils % (Manual) 3 % (0-3) Basophils % (Manual) 0 % (0-2) Band Neutrophils 0 % (0-8) Platelet Estimate Decreased L Platelet Morphology Normal Anisocytosis 1+ Sodium Level 138 MMOL/L (136-145) Potassium Level 3.3 MMOL/L (3.5-5.1) L Chloride Level 105 MMOL/L (98-107) Carbon Dioxide Level 22 MMOL/L (21-32) Anion Gap 12 mmol/L (5-15) Blood Urea Nitrogen 43 mg/dL (7-18) H Creatinine 4.8 MG/DL (0.55-1.30) H Estimat Glomerular Filtration Rate 12.3 mL/min (>60) Glucose Level 69 MG/DL (74-106) L Calcium Level 7.3 MG/DL (8.5-10.1) L Phosphorus Level 3.6 MG/DL (2.5-4.9) Magnesium Level 1.8 MG/DL (1.8-2.4) Total Bilirubin 0.5 MG/DL (0.2-1.0) Aspartate Amino Transf (AST/SGOT) 17 U/L (15-37) Alanine Aminotransferase (ALT/SGPT) 16 U/L (12-78) Alkaline Phosphatase 107 U/L (46-116) Total Protein 6.0 G/DL (6.4-8.2) L Albumin 2.0 G/DL (3.4-5.0) L Globulin 4.0 g/dL Albumin/Globulin Ratio 0.5 (1.0-2.7) L Microbiology Date/Time Source Procedure Growth Status 01/14/20 18:50 Indwelling Cath Urine Culture - Preliminary NO GROWTH AFTER 24 HOURS Resulted Objective HEENT: Atraumatic and normocephalic. Anicteric. Pupils are equal, round, and reactive to light and accommodation. Extraocular muscles are intact. NECK: JVP less than 5 cm. No carotid bruit. Carotid upstrokes 2+ bilaterally. CARDIOVASCULAR: Normal S1, S2. Regular rate and rhythm, bradycardic. No murmurs, gallops, or rubs. PMI is at fourth intercostal space, midclavicular line. LUNGS: Clear to auscultation bilaterally. ABDOMEN: No hepatosplenomegaly. Soft and nondistended. Positive bowel sounds. EXTREMITIES: No evidence of edema, clubbing or cyanosis. Alvaro Hargrove MD Jan 15, 2020 13:39
--- NOTE | 2020-01-15 15:58 | NUR ---
PT Note Attempted to see patient x 2. Patient requested to be seen at a later time as he needs to have the ADL care first. Attempted to see patient in PM but patient was on dialysis.
[2020-01-15 16:00] VITALS: BP 131/67
--- NOTE | 2020-01-15 19:33 | NUR ---
HAND-OFF: Report given to AMARILIS Diaz.
--- NOTE | 2020-01-15 19:40 | NUR ---
NURSE NOTES: The patient is alert and oriented x4 and doesn't seem to be in any active distress at this time.He is on room air with Resp even and unlabored . He is status dialysis ans had a Right IJ Quantin catheter triple lumen that is clean and intact. He also has a Torres catheter draining under gravity of pale yellowish urine. IV line noted in LFA 22g that is patent and asymptomatic.The bed in low level, call light within easy reach and siderails up x3. Will continue to monitor
[2020-01-15 20:00] VITALS: BP 151/79
[2020-01-15] MEDS: Dyna-Hex 2% Top Sol 2oz TOPIC SCH (20:48)
[2020-01-16] VITALS (7 sets, daily range): BP systolic 118–153; BP diastolic 60–89
--- NOTE | 2020-01-16 00:44 | NUR ---
NURSE NOTES: The patient has episodes of loose stools and was given loperamide as indicated. Will continue to monitor as indicated.
[2020-01-16] MEDS: NovoLOG Insulin Flexpen SUBQ SCH ×4 (06:30→21:14)
[2020-01-16 06:41] LABS: HEMATOCRIT 25.3 % (42.0-52.0); HEMOGLOBIN 8.7 G/DL (14.2-18.0); MEAN CORPUSCULAR VOLUME 93 FL (80-99); PLATELET COUNT 131 K/UL (150-450); RED BLOOD COUNT 2.72 M/UL (4.70-6.10); RED CELL DISTRIBUTION WIDTH 14.7 % (11.6-14.8); WHITE BLOOD COUNT 11.4 K/UL (4.8-10.8)
--- NOTE | 2020-01-16 07:06 | Hematology/Onc Progress Note ---
Assessment/Plan Assessment/Plan Assessment and Recs # Anemia of chronic disease - likely multifactorial, with sepsis, poorly controlled DM2, and esrd --> Anemia workup has been ordered, reviewed --> No evidence of hemolysis is noted, peripheral smear has been reviewed. --> Hgb goal >7. Transfuse prn. --> Epogen started sq --> hgb 5-->5.9-->9.4->9.7-->8.9-->8.7 ==> hold off on iron --> occult ++ seen by Gi --> colo for 01/10 # Thrombocytopenia likely due to liver disease/cirrhosis-->resolved, also now with sepsis/pna, elev la --> Medications have been reviewed --> if the plt count less than 10k, transfuse immediately. If less than 20k and febrile, transfuse --> If less than 50k and bleeding, transfuse. If neurosurgical bleed, transfuse as well --> plt 168->128-->100-->102-->106->139 --> us abd with cholelithiasis # Sepsis - on fluids and abx --> iamging as needed --> consider abx [email or web address] # Dehydration --> per renal # Choledocholithiasis with acute cholecystitis --> ERCP when stable -> seen by gi # Dvt ppx heparin sq The timing of this note does not necessarily reflect the time of the patient was seen. Greatly appreciate consultation! Subjective Allergies: Coded Allergies: No Known Allergies (Unverified , 04/21/18) Subjective 01/09 labs reviewed, hgb low, on epo and hd today 01/10 for colo today, no bleeding, meds reviewed, bowel prep+ 01/11 for hd today, no bleeding, labs noted, hgb stable 01/12 labs reviewed, meds noted, no night sweats, improved plt 01/14 unlabored breahting, no night sweats, plt remains low, no night sweats 01/15 labs reviewed, no bleeding, meds noted, no bleeding, hgb 8.7 Objective Objective Current Medications Medications (Trade) Dose Ordered Sig/Jamal Route PRN Reason Start Time Stop Time Status Last Admin Dose Admin Amlodipine Besylate (Norvasc) 2.5 mg DAILY ORAL 01/15/20 14:00 12/1/20 13:59 Ceftriaxone Sodium 1 gm/ Dextrose 55 ml @ 110 mls/hr Q24H IVPB 01/09/20 08:00 01/16/20 07:59 01/15/20 08:56 Chlorhexidine Gluconate (Jen-Hex 2%) 1 applic DAILY@2000 TOPIC 01/10/20 20:00 04/09/20 19:59 01/15/20 20:48 Dextrose (Dextrose 50%) 25 ml Q30M PRN IV Hypoglycemia 01/08/20 04:15 04/07/20 04:14 01/09/20 12:09 Dextrose (Dextrose 50%) 50 ml Q30M PRN IV Hypoglycemia 01/08/20 04:15 04/07/20 04:14 Doxycycline Hyclate 100 mg/ Dextrose 110 ml @ 110 mls/hr Q12HR IV 01/14/20 14:00 01/21/20 13:59 01/15/20 20:48 Epoetin Andre (Epoetin Andre(ESRD on dialysis)) 6,000 unit THU-THU-THU SUBQ 01/11/20 21:00 04/10/20 20:59 01/13/20 22:03 Insulin Aspart (NovoLOG) BEFORE MEALS AND HS SUBQ 01/08/20 06:30 04/07/20 06:29 01/14/20 11:54 Loperamide HCl (Imodium) 2 mg Q8H PRN ORAL Diarrhea 01/14/20 15:15 02/13/20 15:14 01/16/20 00:22 Mirtazapine (Remeron) 7.5 mg QHS PRN ORAL insomnia 01/10/20 00:30 04/09/20 00:29 Ondansetron HCl (Zofran) 4 mg Q6H PRN IVP Nausea & Vomiting 01/12/20 16:30 02/11/20 16:29 01/12/20 16:23 Pantoprazole (Protonix) 40 mg DAILY ORAL 01/14/20 09:00 02/13/20 08:59 01/15/20 08:53 Tamsulosin HCl (Flomax) 0.4 mg BID ORAL 01/10/20 13:00 02/08/20 20:59 01/15/20 17:28 Last 24 Hour Vital Signs Date Time Temp Pulse Resp B/P (MAP) Pulse Ox O2 Delivery O2 Flow Rate FiO2 01/16/20 04:00 98.4 76 18 140/85 (103) 96 01/16/20 00:00 98.6 67 18 148/75 (99) 96 01/15/20 21:00 Room Air 01/15/20 20:00 98.4 70 18 151/79 (103) 95 01/15/20 16:00 98.1 66 19 131/67 (88) 98 01/15/20 14:00 65 152/72 01/15/20 12:00 96.8 65 19 152/72 (98) 98 01/15/20 09:00 Room Air 01/15/20 08:00 97.7 65 17 136/76 (96) 98 01/15/20 04:00 97.4 69 18 150/71 (97) 98 01/14/20 23:35 98.1 75 18 158/78 (104) 97 01/14/20 20:53 Room Air 01/14/20 20:00 97.5 70 18 137/78 (97) 99 01/14/20 16:00 97.8 65 18 121/58 (79) 99 01/14/20 11:41 97.6 63 18 116/60 (78) 98 01/14/20 09:00 Room Air 01/14/20 08:00 97.8 73 17 124/62 (82) 98 Intake and Output 01/15/20 01/16/20 19:00 07:00 Intake Total 665 ml Output Total 350 ml 800 ml Balance 315 ml -800 ml Intake Oral 500 ml IV Total 165 ml Output Urine Total 350 ml 800 ml # Voids 1 # Bowel Movements 2 4 Labs Test 01/13/20 11:26 01/13/20 16:38 01/14/20 05:00 01/14/20 08:49 POC Whole Blood Glucose 124 MG/DL (74-106) White Blood Count 13.8 K/UL (4.8-10.8) Red Blood Count 2.45 M/UL (4.70-6.10) Hemoglobin 7.6 G/DL (14.2-18.0) Hematocrit 22.5 % (42.0-52.0) Mean Corpuscular Volume 92 FL (80-99) Mean Corpuscular Hemoglobin 31.2 PG (27.0-31.0) Mean Corpuscular Hemoglobin Concent 33.9 G/DL (32.0-36.0) Red Cell Distribution Width 15.0 % (11.6-14.8) Platelet Count 123 K/UL (150-450) Mean Platelet Volume 6.9 FL (6.5-10.1) Neutrophils (%) (Auto) % (45.0-75.0) Lymphocytes (%) (Auto) % (20.0-45.0) Monocytes (%) (Auto) % (1.0-10.0) Eosinophils (%) (Auto) % (0.0-3.0) Basophils (%) (Auto) % (0.0-2.0) Differential Total Cells Counted 100 Neutrophils % (Manual) 90 % (45-75) Lymphocytes % (Manual) 5 % (20-45) Monocytes % (Manual) 1 % (1-10) Eosinophils % (Manual) 2 % (0-3) Basophils % (Manual) 0 % (0-2) Band Neutrophils 2 % (0-8) Platelet Estimate Decreased Platelet Morphology Normal Anisocytosis 1+ Sodium Level 143 MMOL/L (136-145) Potassium Level 3.5 MMOL/L (3.5-5.1) Chloride Level 110 MMOL/L (98-107) Carbon Dioxide Level 25 MMOL/L (21-32) Anion Gap 8 mmol/L (5-15) Blood Urea Nitrogen 42 mg/dL (7-18) Creatinine 4.5 MG/DL (0.55-1.30) Estimat Glomerular Filtration Rate 13.3 mL/min (>60) Glucose Level 112 MG/DL (74-106) Uric Acid 3.7 MG/DL (2.6-7.2) Calcium Level 7.3 MG/DL (8.5-10.1) Phosphorus Level 3.7 MG/DL (2.5-4.9) Magnesium Level 1.9 MG/DL (1.8-2.4) Total Bilirubin 0.4 MG/DL (0.2-1.0) Aspartate Amino Transf (AST/SGOT) 18 U/L (15-37) Alanine Aminotransferase (ALT/SGPT) 14 U/L (12-78) Alkaline Phosphatase 91 U/L (46-116) C-Reactive Protein, Quantitative 19.7 mg/dL (0.00-0.90) Pro-B-Type Natriuretic Peptide 9746 pg/mL (0-125) Total Protein 6.0 G/DL (6.4-8.2) Albumin 2.0 G/DL (3.4-5.0) Globulin 4.0 g/dL Albumin/Globulin Ratio 0.5 (1.0-2.7) Stool Occult Blood Negative (NEGATIVE) Test 01/14/20 11:52 01/14/20 15:51 01/14/20 18:50 01/14/20 21:28 POC Whole Blood Glucose 158 MG/DL (74-106) 119 MG/DL (74-106) 118 MG/DL (74-106) Urine Color Pale yellow Urine Appearance Slightly cloudy Urine pH 5 (4.5-8.0) Urine Specific [place] 1.015 (1.005-1.035) Urine Protein 2+ (NEGATIVE) Urine Glucose (UA) Negative (NEGATIVE) Urine Ketones Negative (NEGATIVE) Urine Blood 1+ (NEGATIVE) Urine Nitrite Negative (NEGATIVE) Urine Bilirubin Negative (NEGATIVE) Urine Urobilinogen Normal MG/DL (0.0-1.0) Urine Leukocyte Esterase Negative (NEGATIVE) Urine RBC 2-4 /HPF (0 - 0) Urine WBC 0-2 /HPF (0 - 0) Urine Squamous Epithelial Cells Occasional /LPF Urine Amorphous Sediment Moderate /LPF (NONE) Urine Bacteria Few /HPF (NONE) Test 01/15/20 05:28 01/15/20 05:30 01/15/20 05:40 01/15/20 06:00 POC Whole Blood Glucose 62 MG/DL (74-106) 63 MG/DL (74-106) 78 MG/DL (74-106) White Blood Count 12.5 K/UL (4.8-10.8) Red Blood Count 2.86 M/UL (4.70-6.10) Hemoglobin 8.9 G/DL (14.2-18.0) Hematocrit 26.7 % (42.0-52.0) Mean Corpuscular Volume 93 FL (80-99) Mean Corpuscular Hemoglobin 31.1 PG (27.0-31.0) Mean Corpuscular Hemoglobin Concent 33.4 G/DL (32.0-36.0) Red Cell Distribution Width 14.6 % (11.6-14.8) Platelet Count 139 K/UL (150-450) Mean Platelet Volume 5.8 FL (6.5-10.1) Neutrophils (%) (Auto) % (45.0-75.0) Lymphocytes (%) (Auto) % (20.0-45.0) Monocytes (%) (Auto) % (1.0-10.0) Eosinophils (%) (Auto) % (0.0-3.0) Basophils (%) (Auto) % (0.0-2.0) Differential Total Cells Counted 100 Neutrophils % (Manual) 86 % (45-75) Lymphocytes % (Manual) 11 % (20-45) Monocytes % (Manual) 0 % (1-10) Eosinophils % (Manual) 3 % (0-3) Basophils % (Manual) 0 % (0-2) Band Neutrophils 0 % (0-8) Platelet Estimate Decreased Platelet Morphology Normal Anisocytosis 1+ Sodium Level 138 MMOL/L (136-145) Potassium Level 3.3 MMOL/L (3.5-5.1) Chloride Level 105 MMOL/L (98-107) Carbon Dioxide Level 22 MMOL/L (21-32) Anion Gap 12 mmol/L (5-15) Blood Urea Nitrogen 43 mg/dL (7-18) Creatinine 4.8 MG/DL (0.55-1.30) Estimat Glomerular Filtration Rate 12.3 mL/min (>60) Glucose Level 69 MG/DL (74-106) Calcium Level 7.3 MG/DL (8.5-10.1) Phosphorus Level 3.6 MG/DL (2.5-4.9) Magnesium Level 1.8 MG/DL (1.8-2.4) Total Bilirubin 0.5 MG/DL (0.2-1.0) Aspartate Amino Transf (AST/SGOT) 17 U/L (15-37) Alanine Aminotransferase (ALT/SGPT) 16 U/L (12-78) Alkaline Phosphatase 107 U/L (46-116) Total Protein 6.0 G/DL (6.4-8.2) Albumin 2.0 G/DL (3.4-5.0) Globulin 4.0 g/dL Albumin/Globulin Ratio 0.5 (1.0-2.7) Test 01/15/20 11:28 01/15/20 16:42 01/15/20 20:45 01/16/20 05:44 POC Whole Blood Glucose 133 MG/DL (74-106) 86 MG/DL (74-106) 143 MG/DL (74-106) 112 MG/DL (74-106) Test 01/16/20 05:50 White Blood Count 11.4 K/UL (4.8-10.8) Red Blood Count 2.72 M/UL (4.70-6.10) Hemoglobin 8.7 G/DL (14.2-18.0) Hematocrit 25.3 % (42.0-52.0) Mean Corpuscular Volume 93 FL (80-99) Mean Corpuscular Hemoglobin 31.8 PG (27.0-31.0) Mean Corpuscular Hemoglobin Concent 34.2 G/DL (32.0-36.0) Red Cell Distribution Width 14.7 % (11.6-14.8) Platelet Count 131 K/UL (150-450) Mean Platelet Volume 6.3 FL (6.5-10.1) Neutrophils (%) (Auto) % (45.0-75.0) Lymphocytes (%) (Auto) % (20.0-45.0) Monocytes (%) (Auto) % (1.0-10.0) Eosinophils (%) (Auto) % (0.0-3.0) Basophils (%) (Auto) % (0.0-2.0) Height (Feet): 5 Height (Inches): 4.00 Weight (Pounds): 99 Objective Physical Exam Vitals: reviewed General: GCS 15, thin, other - Cold, Chronically Ill - Cachectic Heent: dry mucus membranes, full range of motion, supple, no meningismus Respiratory: chest non-tender, lungs clear, normal breath sounds Cardiovascular: bradycardia, 2+ radial (R) Gastrointestinal: other - Spider habitus, decreased bowel sound Musculoskeletal: back normal, normal range of motion, no calf tenderness Neurologic: oriented - x 2 Psychiatric: mood/affect normal Skin: pallor - Sallow and cold Guero Hernandez MD Jan 16, 2020 07:06
--- NOTE | 2020-01-16 07:20 | NUR ---
HAND-OFF: Report given to Magdiel OLMOS.
[2020-01-16 07:25] LABS: ALBUMIN 1.9 G/DL (3.4-5.0); ALBUMIN/GLOBULIN RATIO 0.5 (1.0-2.7); BILIRUBIN,TOTAL 0.4 MG/DL (0.2-1.0); CALCIUM 7.2 MG/DL (8.5-10.1); CREATININE 3.4 MG/DL (0.55-1.30); PHOSPHORUS 2.5 MG/DL (2.5-4.9); POTASSIUM 3.5 MMOL/L (3.5-5.1)
[2020-01-16] MEDS: Tamsulosin 0.4mg cap ORAL SCH ×2 (09:15→17:49)
[2020-01-16] MEDS: Doxycycline 100mg in D5W 110ml IV SCH ×2 (09:16→21:02)
--- NOTE | 2020-01-16 09:21 | General Progress Note ---
Subjective Allergies: Coded Allergies: No Known Allergies (Unverified , 04/21/18) Subjective doing better bleeding from ij stopped weakness Objective Last 24 Hour Vital Signs Date Time Temp Pulse Resp B/P (MAP) Pulse Ox O2 Delivery O2 Flow Rate FiO2 01/16/20 09:15 68 152/80 01/16/20 04:00 98.4 76 18 140/85 (103) 96 01/16/20 00:00 98.6 67 18 148/75 (99) 96 01/15/20 21:00 Room Air 01/15/20 20:00 98.4 70 18 151/79 (103) 95 01/15/20 16:00 98.1 66 19 131/67 (88) 98 01/15/20 14:00 65 152/72 01/15/20 12:00 96.8 65 19 152/72 (98) 98 Intake and Output 01/15/20 01/16/20 19:00 07:00 Intake Total 665 ml Output Total 350 ml 800 ml Balance 315 ml -800 ml Intake Oral 500 ml IV Total 165 ml Output Urine Total 350 ml 800 ml # Voids 1 # Bowel Movements 2 4 Laboratory Tests 01/15/20 11:28: POC Whole Blood Glucose 133H 01/15/20 16:42: POC Whole Blood Glucose 86 01/15/20 20:45: POC Whole Blood Glucose 143H 01/16/20 05:44: POC Whole Blood Glucose 112H 01/16/20 05:50: White Blood Count 11.4H, Red Blood Count 2.72L, Hemoglobin 8.7L, Hematocrit 25.3L, Mean Corpuscular Volume 93, Mean Corpuscular Hemoglobin 31.8H, Mean Corpuscular Hemoglobin Concent 34.2, Red Cell Distribution Width 14.7, Platelet Count 131L, Mean Platelet Volume 6.3L, Neutrophils (%) (Auto) , Lymphocytes (%) (Auto) , Monocytes (%) (Auto) , Eosinophils (%) (Auto) , Basophils (%) (Auto) , Differential Total Cells Counted 100, Neutrophils % (Manual) 90H, Lymphocytes % (Manual) 5L, Monocytes % (Manual) 3, Eosinophils % (Manual) 1, Basophils % (Manual) 1, Band Neutrophils 0, Platelet Estimate DecreasedL, Platelet Morphology Normal, Hypochromasia 1+, Anisocytosis 1+, Sodium Level 142, Potassium Level 3.5, Chloride Level 107, Carbon Dioxide Level 27, Anion Gap 8, Blood Urea Nitrogen 23H, Creatinine 3.4H, Estimat Glomerular Filtration Rate 18.3, Glucose Level 130H, Calcium Level 7.2L, Phosphorus Level 2.5, Total Bilirubin 0.4, Aspartate Amino Transf (AST/SGOT) 19, Alanine Aminotransferase (ALT/SGPT) 15, Alkaline Phosphatase 105, Total Protein 5.7L, Albumin 1.9L, Globulin 3.8, Albumin/Globulin Ratio 0.5L Height (Feet): 5 Height (Inches): 4.00 Weight (Pounds): 99 General Appearance: alert EENT: PERRL/EOMI Neck: supple Cardiovascular: regular rhythm Respiratory/Chest: normal breath sounds Abdomen: non tender, soft Assessment/Plan Status: stable Assessment/Plan: ac kidney failure improving 1 anemia r/o gi bleeding hh better 2 severe malnutrition 3 wt loss 4 fever r/o sepsis 5 dm type 2 gi w/u today cont ss, accue check pt/ot eval dc plan to snf case finisher Kamron Allan MD Jan 16, 2020 09:21
--- NOTE | 2020-01-16 10:06 | Pulmonology Progress Note ---
Subjective ROS Limited/Unobtainable: No Interval Events: None new Constitutional: Reports: no symptoms HEENT: Repors: no symptoms Respiratory: Reports: no symptoms Cardiovascular: Reports: no symptoms Gastrointestinal/Abdominal: Reports: no symptoms Genitourinary: Reports: no symptoms Allergies: Coded Allergies: No Known Allergies (Unverified , 04/21/18) Objective Last 24 Hour Vital Signs Date Time Temp Pulse Resp B/P (MAP) Pulse Ox O2 Delivery O2 Flow Rate FiO2 01/16/20 09:15 68 152/80 01/16/20 09:00 Room Air 01/16/20 08:00 97.7 76 20 153/86 (108) 96 01/16/20 04:00 98.4 76 18 140/85 (103) 96 01/16/20 00:00 98.6 67 18 148/75 (99) 96 01/15/20 21:00 Room Air 01/15/20 20:00 98.4 70 18 151/79 (103) 95 01/15/20 16:00 98.1 66 19 131/67 (88) 98 01/15/20 14:00 65 152/72 01/15/20 12:00 96.8 65 19 152/72 (98) 98 Intake and Output 01/15/20 01/16/20 18:59 06:59 Intake Total 665 ml Output Total 350 ml 800 ml Balance 315 ml -800 ml Intake Oral 500 ml IV Total 165 ml Output Urine Total 350 ml 800 ml # Voids 1 # Bowel Movements 2 4 General Appearance: no acute distress HEENT: normocephalic Respiratory: chest wall non-tender, lungs clear Cardiovascular: normal peripheral pulses Abdomen: normal bowel sounds Microbiology Date/Time Source Procedure Growth Status 01/14/20 18:50 Indwelling Cath Urine Culture - Preliminary NO GROWTH AFTER 24 HOURS Resulted Laboratory Tests 01/15/20 11:28: POC Whole Blood Glucose 133H 01/15/20 16:42: POC Whole Blood Glucose 86 01/15/20 20:45: POC Whole Blood Glucose 143H 01/16/20 05:44: POC Whole Blood Glucose 112H 01/16/20 05:50: White Blood Count 11.4H, Red Blood Count 2.72L, Hemoglobin 8.7L, Hematocrit 25.3L, Mean Corpuscular Volume 93, Mean Corpuscular Hemoglobin 31.8H, Mean Corpuscular Hemoglobin Concent 34.2, Red Cell Distribution Width 14.7, Platelet Count 131L, Mean Platelet Volume 6.3L, Neutrophils (%) (Auto) , Lymphocytes (%) (Auto) , Monocytes (%) (Auto) , Eosinophils (%) (Auto) , Basophils (%) (Auto) , Differential Total Cells Counted 100, Neutrophils % (Manual) 90H, Lymphocytes % (Manual) 5L, Monocytes % (Manual) 3, Eosinophils % (Manual) 1, Basophils % (Manual) 1, Band Neutrophils 0, Platelet Estimate DecreasedL, Platelet Morpholo gy Normal, Hypochromasia 1+, Anisocytosis 1+, Sodium Level 142, Potassium Level 3.5, Chloride Level 107, Carbon Dioxide Level 27, Anion Gap 8, Blood Urea Nitrogen 23H, Creatinine 3.4H, Estimat Glomerular Filtration Rate 18.3, Glucose Level 130H, Calcium Level 7.2L, Phosphorus Level 2.5, Total Bilirubin 0.4, Aspartate Amino Transf (AST/SGOT) 19, Alanine Aminotransferase (ALT/SGPT) 15, Alkaline Phosphatase 105, Total Protein 5.7L, Albumin 1.9L, Globulin 3.8, Albumin/Globulin Ratio 0.5L Current Medications Medications (Trade) Dose Ordered Sig/Jamal Route PRN Reason Start Time Stop Time Status Last Admin Dose Admin Amlodipine Besylate (Norvasc) 2.5 mg DAILY ORAL 01/15/20 14:00 02/14/20 13:59 01/16/20 09:15 Chlorhexidine Gluconate (Jen-Hex 2%) 1 applic DAILY@2000 TOPIC 01/10/20 20:00 04/09/20 19:59 01/15/20 20:48 Dextrose (Dextrose 50%) 25 ml Q30M PRN IV Hypoglycemia 01/08/20 04:15 04/07/20 04:14 01/09/20 12:09 Dextrose (Dextrose 50%) 50 ml Q30M PRN IV Hypoglycemia 01/08/20 04:15 04/07/20 04:14 Doxycycline Hyclate 100 mg/ Dextrose 110 ml @ 110 mls/hr Q12HR IV 01/14/20 14:00 01/21/20 13:59 01/16/20 09:16 Epoetin Andre (Epoetin Andre(ESRD on dialysis)) 6,000 unit THU- SUBQ 01/11/20 21:00 04/10/20 20:59 01/13/20 22:03 Insulin Aspart (NovoLOG) BEFORE MEALS AND HS SUBQ 01/08/20 06:30 04/07/20 06:29 01/14/20 11:54 Loperamide HCl (Imodium) 2 mg Q8H PRN ORAL Diarrhea 01/14/20 15:15 02/13/20 15:14 01/16/20 00:22 Mirtazapine (Remeron) 7.5 mg QHS PRN ORAL insomnia 01/10/20 00:30 04/09/20 00:29 Ondansetron HCl (Zofran) 4 mg Q6H PRN IVP Nausea & Vomiting 01/12/20 16:30 02/11/20 16:29 01/12/20 16:23 Pantoprazole (Protonix) 40 mg DAILY ORAL 01/14/20 09:00 02/13/20 08:59 01/16/20 09:15 Tamsulosin HCl (Flomax) 0.4 mg BID ORAL 01/10/20 13:00 02/08/20 20:59 01/16/20 09:15 Assessment/Plan Assessment/Plan ASSESSMENT AND PLAN: 1. Sinus bradycardia. 2. Profound anemia, status post blood transfusion. 3. Mild pulmonary hypertension 4. Probable pneumonia Agree with broad-spectrum antibiotics. Started on Doxy for atypicals Mild leucocytosis noted; ow 11.4 saturating well on RA S/p hemodialysis Nataliya Mclaughlin Omar Syed MD Jan 16, 2020 10:06
--- NOTE | 2020-01-16 10:19 | General Progress Note ---
Subjective ROS Limited/Unobtainable: Yes Allergies: Coded Allergies: No Known Allergies (Unverified , 04/21/18) Objective Last 24 Hour Vital Signs Date Time Temp Pulse Resp B/P (MAP) Pulse Ox O2 Delivery O2 Flow Rate FiO2 01/16/20 09:15 68 152/80 01/16/20 09:00 Room Air 01/16/20 08:00 97.7 76 20 153/86 (108) 96 01/16/20 04:00 98.4 76 18 140/85 (103) 96 01/16/20 00:00 98.6 67 18 148/75 (99) 96 01/15/20 21:00 Room Air 01/15/20 20:00 98.4 70 18 151/79 (103) 95 01/15/20 16:00 98.1 66 19 131/67 (88) 98 01/15/20 14:00 65 152/72 01/15/20 12:00 96.8 65 19 152/72 (98) 98 Intake and Output 01/15/20 01/16/20 19:00 07:00 Intake Total 665 ml Output Total 350 ml 800 ml Balance 315 ml -800 ml Intake Oral 500 ml IV Total 165 ml Output Urine Total 350 ml 800 ml # Voids 1 # Bowel Movements 2 4 Laboratory Tests 01/15/20 11:28: POC Whole Blood Glucose 133H 01/15/20 16:42: POC Whole Blood Glucose 86 01/15/20 20:45: POC Whole Blood Glucose 143H 01/16/20 05:44: POC Whole Blood Glucose 112H 01/16/20 05:50: White Blood Count 11.4H, Red Blood Count 2.72L, Hemoglobin 8.7L, Hematocrit 25.3L, Mean Corpuscular Volume 93, Mean Corpuscular Hemoglobin 31.8H, Mean Corpuscular Hemoglobin Concent 34.2, Red Cell Distribution Width 14.7, Platelet Count 131L, Mean Platelet Volume 6.3L, Neutrophils (%) (Auto) , Lymphocytes (%) (Auto) , Monocytes (%) (Auto) , Eosinophils (%) (Auto) , Basophils (%) (Auto) , Differential Total Cells Counted 100, Neutrophils % (Manual) 90H, Lymphocytes % (Manual) 5L, Monocytes % (Manual) 3, Eosinophils % (Manual) 1, Basophils % (Manual) 1, Band Neutrophils 0, Platelet Estimate DecreasedL, Platelet Morphology Normal, Hypochromasia 1+, Anisocytosis 1+, Sodium Level 142, Potassium Level 3.5, Chloride Level 107, Carbon Dioxide Level 27, Anion Gap 8, Blood Urea Nitrogen 23H, Creatinine 3.4H, Estimat Glomerular Filtration Rate 18.3, Glucose Level 130H, Calcium Level 7.2L, Phosphorus Level 2.5, Total Bilirubin 0.4, Aspartate Amino Transf (AST/SGOT) 19, Alanine Aminotransferase (ALT/SGPT) 15, Alkaline Phosphatase 105, Total Protein 5.7L, Albumin 1.9L, Globulin 3.8, Albumin/Globulin Ratio 0.5L Height (Feet): 5 Height (Inches): 4.00 Weight (Pounds): 99 General Appearance: no apparent distress EENT: normal ENT inspection Neck: supple Cardiovascular: normal rate Respiratory/Chest: decreased breath sounds Abdomen: normal bowel sounds, non tender, soft Extremities: non-tender Assessment/Plan Problem List: (1) Gallstones ICD Codes: K80.20 - Calculus of gallbladder without cholecystitis without obstruction SNOMED: 452048176 (2) Renal failure ICD Codes: N19 - Unspecified kidney failure SNOMED: 69700108 Qualifiers: Qualified Codes: N17.9 - Acute kidney failure, unspecified (3) Anemia ICD Codes: D64.9 - Anemia, unspecified SNOMED: 966098637 Qualifiers: Qualified Codes: D64.9 - Anemia, unspecified (4) Diabetes ICD Codes: E11.9 - Type 2 diabetes mellitus without complications SNOMED: 54006968 Status: stable Assessment/Plan: s/p EGD and colonoscopy s/p ERCP and stenting needs ercp and stent removal in 8-12 weeks patient was given my card to call for FU fu surg recs HD per nephrology fu labs protonix po daily repeat cbc re check stool ob>>> neg León Lambert MD Jan 16, 2020 10:19
--- NOTE | 2020-01-16 11:14 | NUR ---
RD ASSESSMENT & RECOMMENDATIONS SEE CARE ACTIVITY FOR COMPLETE ASSESSMENT DAILY ESTIMATED NEEDS: Needs based on Renal, underweight, 46.8kg 30-35 kcals/kg 7086-1520 total kcals .8-1.2 (w HD 1.2-1.8) g protein/kg 37-56 (w/ HD 56-84 g total protein Fluid per MD NUTRITION DIAGNOSIS: Altered nutrition related lab values R/T renal failure, clinical condition as evidenced by low POC glu (19 18, now improved), elev bun (145-> 64 trend down) and creat (9.7->6.0), elev K on adm (6.6->wnl), elev phos (5.5), pt now on HD. CURRENT DIET:Renal PO DIET RECOMMENDATIONS: RENAL DIET/ Texture as tolerated ADDITIONAL RECOMMENDATIONS: * Standing wt as able for accurate CBW * Monitor for HD initiation- now on HD, first HD on 01/09 * Nepro TID w/ meals (425kcal/19g prot each) * Monitor for continued good PO intake * Check POC glu q3-4 hrs, maintain D5 w/ low BG. * Monitor phos, need for phos binder w/ meals. * Add snacks in b.w meals;pm snack intake to prevent am hypoglycemia
--- NOTE | 2020-01-16 12:14 | Nephrology Progress Note ---
Assessment/Plan Problem List: (1) JONA (acute kidney injury) (2) Hyperkalemia (3) Anemia (4) Metabolic acidosis (5) Ureter obstruction (6) Failure to thrive Assessment Renal failure acute, superimposed on chronic Hyperkalemia Acidosis Presented with severe anemia on admission, transfused 3 units packed RBCs since admission. History of hypertension History of diabetes mellitus 01/09/2020----PATIENT NEED EMERGENCY LIFE SAVING DIALYSIS Plan January 15: Dialyzed yesterday. Monitor renal parameters. Adjust blood pressure medications. Due for placement of tunneled catheter. Continue same management. January 14: Patient due for dialysis today. Blood culture for the past 24 hours is negative. Continue to monitor CBC CRP and blood cultures and when appropriate to proceed with tunneled catheter placement. January 13: Patient's last dialysis January 11. Next dialysis tomorrow January 14. Patient still have a nontunneled catheter as may have underlying bacteremia. Surveillance blood cultures ordered. January 12: Patient dialyzed yesterday. Due for tunneled catheter placement today. Continue dialysis as needed. Patient has a Torres catheter now. January 11: Patient due for dialysis today. Continue per GI management. Labs reviewed. Will arrange for tunneled dialysis catheter and outpatient dialysis center placement. Urological evaluation pending. January 10: Patient was dialyzed January 08. Is undergoing GI evaluation. Labs reviewed. Due for dialysis again tomorrow. Urological evaluation for bladder retention pending. Insertion of temporary non tunneled dialysis catheter followed by dialysis to correct acidosis hyperkalemia, done yesterday Continue per consultants Monitor electrolytes and renal parameters Hemodialysis as needed Urology evaluation for urinary retention Per orders Subjective ROS Limited/Unobtainable: No Constitutional: Reports: malaise Objective Objective Last 24 Hour Vital Signs Date Time Temp Pulse Resp B/P (MAP) Pulse Ox O2 Delivery O2 Flow Rate FiO2 01/16/20 09:15 68 152/80 01/16/20 09:00 Room Air 01/16/20 08:00 97.7 76 20 153/86 (108) 96 01/16/20 04:00 98.4 76 18 140/85 (103) 96 01/16/20 00:00 98.6 67 18 148/75 (99) 96 01/15/20 21:00 Room Air 01/15/20 20:00 98.4 70 18 151/79 (103) 95 01/15/20 16:00 98.1 66 19 131/67 (88) 98 01/15/20 14:00 65 152/72 Intake and Output 01/15/20 01/16/20 19:00 07:00 Intake Total 665 ml Output Total 350 ml 800 ml Balance 315 ml -800 ml Intake Oral 500 ml IV Total 165 ml Output Urine Total 350 ml 800 ml # Voids 1 # Bowel Movements 2 4 Current Medications Medications (Trade) Dose Ordered Sig/Jamal Route PRN Reason Start Time Stop Time Status Last Admin Dose Admin Amlodipine Besylate (Norvasc) 2.5 mg DAILY ORAL 01/15/20 14:00 02/14/20 13:59 01/16/20 09:15 Chlorhexidine Gluconate (Jen-Hex 2%) 1 applic DAILY@1999 TOPIC 01/10/20 20:00 04/09/20 19:59 01/15/20 20:48 Dextrose (Dextrose 50%) 25 ml Q30M PRN IV Hypoglycemia 01/08/20 04:15 04/07/20 04:14 01/09/20 12:09 Dextrose (Dextrose 50%) 50 ml Q30M PRN IV Hypoglycemia 01/08/20 04:15 04/07/20 04:14 Doxycycline Hyclate 100 mg/ Dextrose 110 ml @ 110 mls/hr Q12HR IV 01/14/20 14:00 01/21/20 13:59 01/16/20 09:16 Epoetin Andre (Epoetin Andre(ESRD on dialysis)) 6,000 unit THU-THU-THU SUBQ 01/11/20 21:00 04/10/20 20:59 01/13/20 22:03 Insulin Aspart (NovoLOG) BEFORE MEALS AND HS SUBQ 01/08/20 06:30 04/07/20 06:29 01/14/20 11:54 Loperamide HCl (Imodium) 2 mg Q8H PRN ORAL Diarrhea 01/14/20 15:15 02/13/20 15:14 01/16/20 00:22 Mirtazapine (Remeron) 7.5 mg QHS PRN ORAL insomnia 01/10/20 00:30 04/09/20 00:29 Ondansetron HCl (Zofran) 4 mg Q6H PRN IVP Nausea & Vomiting 01/12/20 16:30 02/11/20 16:29 01/12/20 16:23 Pantoprazole (Protonix) 40 mg DAILY ORAL 01/14/20 09:00 02/13/20 08:59 01/16/20 09:15 Tamsulosin HCl (Flomax) 0.4 mg BID ORAL 01/10/20 13:00 02/08/20 20:59 01/16/20 09:15 Laboratory Tests 01/15/20 16:42: POC Whole Blood Glucose 86 01/15/20 20:45: POC Whole Blood Glucose 143H 01/16/20 05:44: POC Whole Blood Glucose 112H 01/16/20 05:50: White Blood Count 11.4H, Red Blood Count 2.72L, Hemoglobin 8.7L, Hematocrit 25.3L, Mean Corpuscular Volume 93, Mean Corpuscular Hemoglobin 31.8H, Mean Corpuscular Hemoglobin Concent 34.2, Red Cell Distribution Width 14.7, Platelet Count 131L, Mean Platelet Volume 6.3L, Neutrophils (%) (Auto) , Lymphocytes (%) (Auto) , Monocytes (%) (Auto) , Eosinophils (%) (Auto) , Basophils (%) (Auto) , Differential Total Cells Counted 100, Neutrophils % (Manual) 90H, Lymphocytes % (Manual) 5L, Monocytes % (Manual) 3, Eosinophils % (Manual) 1, Basophils % (Manual) 1, Band Neutrophils 0, Platelet Estimate DecreasedL, Platelet Morphology Normal, Hypochromasia 1+, Anisocytosis 1+, Sodium Level 142, Potassium Level 3.5, Chloride Level 107, Carbon Dioxide Level 27, Anion Gap 8, Blood Urea Nitrogen 23H, Creatinine 3.4H, Estimat Glomerular Filtration Rate 18.3, Glucose Level 130H, Calcium Level 7.2L, Phosphorus Level 2.5, Total Bilirubin 0.4, Aspartate Amino Transf (AST/SGOT) 19, Alanine Aminotransferase (ALT/SGPT) 15, Alkaline Phosphatase 105, Total Protein 5.7L, Albumin 1.9L, Globulin 3.8, Albumin/Globulin Ratio 0.5L 01/16/20 11:32: POC Whole Blood Glucose 123H Height (Feet): 5 Height (Inches): 4.00 Weight (Pounds): 99 General Appearance: no apparent distress Cardiovascular: normal rate Respiratory/Chest: decreased breath sounds Abdomen: soft Objective No change Orlin Berrios MD Jan 16, 2020 12:14
[2020-01-16] MEDS: Lisinopril 10mg tab ORAL SCH (12:32)
--- NOTE | 2020-01-16 14:41 | Surgery Progress Note ---
Surgery Progress Note Subjective Symptoms: improved, tolerating diet, passing flatus, BM Objective Last 24 Hour Vital Signs Date Time Temp Pulse Resp B/P (MAP) Pulse Ox O2 Delivery O2 Flow Rate FiO2 01/16/20 12:32 149/89 01/16/20 12:00 97.7 79 20 149/89 (109) 94 01/16/20 09:15 68 152/80 01/16/20 09:00 Room Air 01/16/20 08:00 97.7 76 20 153/86 (108) 96 01/16/20 04:00 98.4 76 18 140/85 (103) 96 01/16/20 00:00 98.6 67 18 148/75 (99) 96 01/15/20 21:00 Room Air 01/15/20 20:00 98.4 70 18 151/79 (103) 95 01/15/20 16:00 98.1 66 19 131/67 (88) 98 I&O Intake and Output 01/15/20 01/16/20 19:00 07:00 Intake Total 665 ml Output Total 350 ml 800 ml Balance 315 ml -800 ml Intake Oral 500 ml IV Total 165 ml Output Urine Total 350 ml 800 ml # Voids 1 # Bowel Movements 2 4 Cardiovascular: RSR Respiratory: clear Abdomen: soft, non-tender, present bowel sounds Extremities: no edema, no tenderness, no cyanosis Laboratory Tests Test 01/15/20 16:42 01/15/20 20:45 01/16/20 05:44 01/16/20 05:50 POC Whole Blood Glucose 86 MG/DL (74-106) 143 MG/DL (74-106) H 112 MG/DL (74-106) H White Blood Count 11.4 K/UL (4.8-10.8) H Red Blood Count 2.72 M/UL (4.70-6.10) L Hemoglobin 8.7 G/DL (14.2-18.0) L Hematocrit 25.3 % (42.0-52.0) L Mean Corpuscular Volume 93 FL (80-99) Mean Corpuscular Hemoglobin 31.8 PG (27.0-31.0) H Mean Corpuscular Hemoglobin Concent 34.2 G/DL (32.0-36.0) Red Cell Distribution Width 14.7 % (11.6-14.8) Platelet Count 131 K/UL (150-450) L Mean Platelet Volume 6.3 FL (6.5-10.1) L Neutrophils (%) (Auto) % (45.0-75.0) Lymphocytes (%) (Auto) % (20.0-45.0) Monocytes (%) (Auto) % (1.0-10.0) Eosinophils (%) (Auto) % (0.0-3.0) Basophils (%) (Auto) % (0.0-2.0) Differential Total Cells Counted 100 Neutrophils % (Manual) 90 % (45-75) H Lymphocytes % (Manual) 5 % (20-45) L Monocytes % (Manual) 3 % (1-10) Eosinophils % (Manual) 1 % (0-3) Basophils % (Manual) 1 % (0-2) Band Neutrophils 0 % (0-8) Platelet Estimate Decreased L Platelet Morphology Normal Hypochromasia 1+ Anisocytosis 1+ Sodium Level 142 MMOL/L (136-145) Potassium Level 3.5 MMOL/L (3.5-5.1) Chloride Level 107 MMOL/L (98-107) Carbon Dioxide Level 27 MMOL/L (21-32) Anion Gap 8 mmol/L (5-15) Blood Urea Nitrogen 23 mg/dL (7-18) H Creatinine 3.4 MG/DL (0.55-1.30) H Estimat Glomerular Filtration Rate 18.3 mL/min (>60) Glucose Level 130 MG/DL (74-106) H Calcium Level 7.2 MG/DL (8.5-10.1) L Phosphorus Level 2.5 MG/DL (2.5-4.9) Total Bilirubin 0.4 MG/DL (0.2-1.0) Aspartate Amino Transf (AST/SGOT) 19 U/L (15-37) Alanine Aminotransferase (ALT/SGPT) 15 U/L (12-78) Alkaline Phosphatase 105 U/L (46-116) Total Protein 5.7 G/DL (6.4-8.2) L Albumin 1.9 G/DL (3.4-5.0) L Globulin 3.8 g/dL Albumin/Globulin Ratio 0.5 (1.0-2.7) L Test 01/16/20 11:32 POC Whole Blood Glucose 123 MG/DL (74-106) H Plan Problems: (1) Bleeding due to dialysis catheter placement Assessment & Plan: 64-year-old male recently had a right temporary internal ju gular dialysis catheter placement by interventional radiology. Patient has been oozing and bleeding from the site since multiple dressings have been changed surgeries been called to evaluate assist with care. Patient seen, patient evaluated, chart reviewed. The site was evaluated dressings were removed there was a large hematoma identified. Hematoma was evacuated removed and site was cleaned with normal saline and gauze. once cleaned was identified that the lateral stitch was oozing and was able to be tightened with surgical instruments the bedside. Once the stitch was tightened down the hemostasis identified pressure was held for 10 minutes and then monitored for a few minutes and hemostasis noted. New dressing applied. Will monitor site. Thank you for your participation's care (2) Hyperkalemia (3) Anemia (4) Ascites (5) Hypoglycemia (6) Pancreatitis Assessment & Plan: DAILY ESTIMATED NEEDS: Needs based on Renal, underweight, 46.8kg 30-35 kcals/kg [id number] total kcals .8-1.2 (w HD 1.2-1.8) g protein/kg 37-56 (w/ HD 56-84 g total protein Fluid per MD NUTRITION DIAGNOSIS: Altered nutrition related lab values R/T renal failure, clinical condition as evidenced by low POC glu (19 18, now improved), elev bun (145-> 64 trend down) and creat (9.7->6.0), elev K on adm (6.6->wnl), elev phos (5.5), pt now on HD. CURRENT DIET:Renal PO DIET RECOMMENDATIONS: RENAL DIET/ Texture as tolerated ADDITIONAL RECOMMENDATIONS: * Standing wt as able for accurate CBW * Monitor for HD initiation- now on HD, first HD on 01/09 * Nepro TID w/ meals (425kcal/19g prot each) * Monitor for continued good PO intake * Check POC glu q3-4 hrs, maintain D5 w/ low BG. * Monitor phos, need for phos binder w/ meals. * Add snacks in b.w meals;pm snack intake to prevent am hypoglycemia (7) Renal failure (8) Sepsis (9) Metabolic acidosis (10) Gallstones (11) Community acquired pneumonia (12) Diabetes (13) Failure to thrive Assessment & Plan: patient with multiple loose BM developing incontinence associated dermatitis around perineum discussed with team monitor for incontinence change accordingly apply triad after clean up thank you (14) Ureter obstruction (15) JONA (acute kidney injury) (16) Acute cholecystitis (17) Choledocholithiasis with acute cholecystitis Assessment & Plan: discussed with GI Recommend cholecystectomy when patient agreeable and stable and medically clear ercp Gallbladder is filled with gallstones. The common bile duct is also filled with gallstones. Common bile duct is dilated, measuring 11 mm in diameter. There is mild central intrahepatic biliary ductal dilatation. No obstructing ampullary mass demonstrated. Considerable signal dropout on the fat saturated images in the liver indicates fatty liver. The pancreas, spleen, adrenals are unremarkable. The kidneys demonstrate bilateral cysts. No pelvic mass or adenopathy. Free intraperitoneal fluid is demonstrated. This is mostly seen surrounding the liver. Impression: Somewhat limited exam, as described Cholelithiasis. There is also choledocholithiasis and biliary ductal dilatation. Although choledocholithiasis was reported on the prior study, calculi are much more extensive within the common bile duct on the current exam Ascites fluid, increased in extent from previous study Bilateral renal cyst Bilateral pleural effusions (18) Dehydration (19) Bradycardia (20) Hypothermia (21) Rectal bleeding (22) Gall bladder stones (23) Gallstone pancreatitis (24) Martin Warner Jan 16, 2020 14:41
--- NOTE | 2020-01-16 15:25 | NUR ---
DISCHARGE PLANNING FOLLOW UP CALLS MADE IN RE TO [facility]. S/W ESE AT [facility] [phone]. PER ESE, FAC ADMIN NOT IN TODAY. REFERRAL TO BE REVIEWED 01/17/20 AND WILL CALL BACK WITH AN ANSWER S/W ANAM AT [facility] [phone]. PER REJI, REFERRAL HAS BEEN FORWARDED TO INTAKE AND IS AWAITING FINAL APPROVAL AT THIS TIME. ANSWER ANTICIPATED BY 01/17/20
--- NOTE | 2020-01-16 15:40 | Diagnostic Imaging Report ---
Indication: For extremity pain Technique: Grayscale and duplex images of the bilateral lower extremity veins Comparison: None Findings: Bilaterally, grayscale and duplex images demonstrate no evidence of intraluminal thrombus. Normal phasic Doppler waveforms, demonstrating normal augmentation response and no evidence of valvular insufficiency. Greater saphenous vein(s) and tibial veins are patent. Normal compressibility. There is incidental finding of bilateral knee joint effusions Impression: Negative for evidence of lower extremity deep venous thrombosis bilaterally
[2020-01-16] MEDS ORDERED: Lidocaine 2% 20mg/ml/Epi 0.005mg/ml 20ml vial INJ PRN (15:45)
[2020-01-16] MEDS ORDERED: Heparin1,000 units/500ml Premix(Conc:2 units/ml) INJ PRN (15:45)
--- NOTE | 2020-01-16 16:16 | NUR ---
CASE MANAGEMENT:REVIEW SI;ACUTE RENAL FAILURE. ANEMIA. 98.4 76 20 153/86 94% ON RA WBC 11.4 H/H 8.7/25.3 PLT 131 BUN 23 CR 3.4 PHOS 7.2 ALB 1.9 IS;ZESTRIL PO QD NORVASC PO QD LOPERAMIDE PO DOXYCYCLINE IV Q12 PROTONIX PO QD MED SURG STATUS DCP;FROM HOME PLAN; DC PLANNING TO SNF AWAITING ACCEPTANCE FOR [facility]
--- NOTE | 2020-01-16 16:51 | NUR ---
*-*DISCHARGE PLANNING*-* PATIENT HAS BEEN REFERRED TO: [facility] P: [phone] [facility], STATED DON DID NOT COME IN TODAY, CALL BACK TOMORROW.
--- NOTE | 2020-01-16 16:53 | NUR ---
INSURANCE [employer]INICALS/REVIEW (01/13-01/15) FAXED TO [facility] [phone] PH [phone]
[2020-01-16] MEDS ORDERED: ceFAZolin sod 1 GM in D5W 55 ML IVPB ONE (17:15)
--- NOTE | 2020-01-16 17:22 | Pre-Procedure Note/Attestation ---
Pre-Procedure Note/Attestation Complete Prior to Procedure Planned Procedure: not applicable Procedure Narrative: Permacath Indications for Procedure Pre-Operative Diagnosis: renal failure Attestation I attest that I discussed the nature of the procedure; its benefits; risks and complications; and alternatives (and the risks and benefits of such alternatives), prior to the procedure, with the patient (or the patient's legal sales promotion representative). I attest that, if there was a reasonable possibility of needing a blood t ransfusion, the patient (or the patient's legal sales promotion representative) was given the [facility] standardized written summary, pursuant to the Ja Oliver Blood Safety Act ([place] Health and Safety Code # 1645, as amended). I attest that I re-evaluated the patient just prior to the surgery and that there has been no change in the patient's H&P, except as documented below: Saul Mejia MD Jan 16, 2020 17:22
--- NOTE | 2020-01-16 17:23 | Brief Operative Note ---
Immediate Post Operative Note Operative Note Pre-op Diagnosis: renal failure Procedure: R IJ permacath Post-op Diagnosis: same Post-op Diagnosis: same as pre-op Surgeon: Blanka Carreno Anesthesia: local Specimen: none Complications: none Fluids: none Implant(s) used?: No Saul Carreno MD Jan 16, 2020 17:23
--- NOTE | 2020-01-16 17:26 | NUR ---
NURSE NOTES: patient signed consent for tunneled dialysis catheter. He went down to get it placed at 1630. Unable to check blood glucose because patient off the floor.
--- NOTE | 2020-01-16 18:32 | Psychiatric Progress Note ---
Psychiatry Progress Note Psychiatry Progress Note Medications Current Medications Medications (Trade) Dose Ordered Sig/Jamal Route PRN Reason Start Time Stop Time Status Last Admin Dose Admin Amlodipine Besylate (Norvasc) 2.5 mg DAILY ORAL 01/15/20 14:00 02/14/20 13:59 01/16/20 09:15 Chlorhexidine Gluconate (Jen-Hex 2%) 1 applic DAILY@2000 TOPIC 01/10/20 20:00 04/09/20 19:59 01/15/20 20:48 Dextrose (Dextrose 50%) 25 ml Q30M PRN IV Hypoglycemia 01/08/20 04:15 04/07/20 04:14 01/09/20 12:09 Dextrose (Dextrose 50%) 50 ml Q30M PRN IV Hypoglycemia 01/08/20 04:15 04/07/20 04:14 Doxycycline Hyclate 100 mg/ Dextrose 110 ml @ 110 mls/hr Q12HR IV 01/14/20 14:00 01/21/20 13:59 01/16/20 09:16 Epoetin Andre (Epoetin Andre(ESRD on dialysis)) 6,000 unit THU-THU-THU SUBQ 01/11/20 21:00 04/10/20 20:59 01/13/20 22:03 Heparin Sodium/ Sodium Chloride (Heparin 1000 units/500ml Premix) 1,000 unit ONCE PRN INJ catheter placement 01/16/20 15:45 01/18/20 15:44 Insulin Aspart (NovoLOG) BEFORE MEALS AND HS SUBQ 01/08/20 06:30 04/07/20 06:29 01/14/20 11:54 Lidocaine/ Epinephrine (Lidocaine 2%/ Epi 20ml) 2 ml ONCE PRN INJ catheter placement 01/16/20 15:45 01/18/20 15:44 Lisinopril (ZestriL) 10 mg DAILY ORAL 01/16/20 12:15 02/15/20 12:14 01/16/20 12:32 Loperamide HCl (Imodium) 2 mg Q8H PRN ORAL Diarrhea 01/14/20 15:15 02/13/20 15:14 01/16/20 00:22 Mirtazapine (Remeron) 7.5 mg QHS PRN ORAL insomnia 01/10/20 00:30 1/25/21 00:29 Ondansetron HCl (Zofran) 4 mg Q6H PRN IVP Nausea & Vomiting 01/12/20 16:30 02/11/20 16:29 01/16/20 17:49 Pantoprazole (Protonix) 40 mg DAILY ORAL 01/14/20 09:00 02/13/20 08:59 01/16/20 09:15 Tamsulosin HCl (Flomax) 0.4 mg BID ORAL 01/10/20 13:00 02/08/20 20:59 01/16/20 17:49 Neurological/Psychiatric: Reports: anxiety, depressed, emotional problems; Denies: no symptoms, headache, numbness, paresthesia, pre-existing deficit, seizure, tingling, tremors, weakness, other Allergies: Coded Allergies: No Known Allergies (Unverified , 04/21/18) Objective Data Height (Feet): 5 Height (Inches): 4.00 Weight (Pounds): 99 General Appearance: no apparent distress Appearance: no abnormalities noted Behavior Mannerisms: good eye contact Speech: clear Additional Comments: is alert and oriented times self, place, and situation. Mood is dysphoric. Affect is constricted, congruent with mood. Thought process is concrete. Thought content, no suicidal or homicidal ideation. Cognition is impaired Insight and judgment, fair. Assessment/Plan [place] I: ASSESSMENT: [place] I Depressive disorder. [place] II Deferred. PLAN: 1. The patient has capacity to sign consent. 2. Provide the patient with reality orientation and supportive therapy. Status: stable Status Narrative ASSESSMENT: [place] I Depressive disorder. [place] II Deferred. PLAN: 1. The patient has capacity to sign consent. 2. Provide the patient with reality orientation and supportive therapy. Assessment/Plan: ASSESSMENT: [place] I Depressive disorder. [place] II Deferred. PLAN: 1. The patient has capacity to sign consent. 2. Provide the patient with reality orientation and supportive therapy. Harry Lucia MD Jan 16, 2020 18:32
--- NOTE | 2020-01-16 18:52 | NUR ---
RADIOLOGY NOTE: RIGHT IJ TUNNELED DIALYSIS CATHETER PLACEMENT BY DR. YEIMI WEATHERS. FA
--- NOTE | 2020-01-16 18:56 | NUR ---
NURSE NOTES: patient has a new right upper chest dialysis catheter that is ready to use. Dialysis nurse aware of dialysis order.
--- NOTE | 2020-01-16 19:03 | NUR ---
NURSE HAND-OFF: Important Events on Shift:right upper chest dialysis catheter placed Patient Status: stable Diet: renal soft easy chew Pending Orders: n/a Pending Results/Labs:n/a Pending MD notification:n/a Latest Vital Signs: Temperature 98.0 , Pulse 69 , B/P 142 /81 , Respiratory Rate 18 , O2 SAT 94 , Room Air, O2 Flow Rate 2.0 . Vital Sign Comment: stable Latest Mclean Fall Score: 85 Fall Risk: High Risk Safety Measures: Call light Within Reach, Bed Alarm Zone 2, Side Rails Side Rails x3, Bed position Low and Locked. Fall Precautions: Yellow Socks Yellow Gown Door Sign Patient Fall Education Report given to AMARILIS Carnes.
--- NOTE | 2020-01-16 19:30 | NUR ---
NURSE NOTES: Patient awake in bed, alert and oriented x 4, on room air, no SOB noted. IV access on the left arm. Instructed to use call light for assistance. Call light and needs in reach. Bed in lowest, lock engaged and alarm on. Will continue plan of care.
[2020-01-16] MEDS: Dyna-Hex 2% Top Sol 2oz TOPIC SCH (20:55)
[2020-01-16] MEDS: Epoetin Alfa-EPBX(ESRD on dialysis)3000 units/ml vial SUBQ SCH (20:56)
[2020-01-17] VITALS: BP 127/63
[2020-01-17 04:00] VITALS: BP 139/63
[2020-01-17] MEDS: NovoLOG Insulin Flexpen SUBQ SCH ×3 (05:57→16:30)
--- NOTE | 2020-01-17 06:37 | NUR ---
NURSE HAND-OFF: Important Events on Shift: BM x2 (soft), Dressings changed. Patient Status: stable Diet: Renal soft easy chew Pending Orders: multiple labs Pending Results/Labs: Pending MD notification: Latest Vital Signs: Temperature 98.0 , Pulse 70 , B/P 139 /63 , Respiratory Rate 20 , O2 SAT 96 , Room Air, O2 Flow Rate 2.0 . Vital Sign Comment: Latest Mclean Fall Score: 85 Fall Risk: High Risk Safety Measures: Call light Within Reach, Bed Alarm Zone 2, Side Rails Side Rails x3, Bed position Low and Locked. Fall Precautions: Yellow Socks Yellow Gown Door Sign Patient Fall Education
--- NOTE | 2020-01-17 06:45 | Hematology/Onc Progress Note ---
Assessment/Plan Assessment/Plan Assessment and Recs # Anemia of chronic disease - likely multifactorial, with sepsis, poorly controlled DM2, and esrd --> Anemia workup has been ordered, reviewed --> No evidence of hemolysis is noted, peripheral smear has been reviewed. --> Hgb goal >7. Transfuse prn. --> Epogen started sq --> hgb 5-->5.9-->9.4->9.7-->8.9-->8.7 ==> hold off on iron --> occult ++ seen by Gi --> colo for 01/10 # Thrombocytopenia likely due to liver disease/cirrhosis-->resolved, also now with sepsis/pna, elev la --> Medications have been reviewed --> if the plt count less than 10k, transfuse immediately. If less than 20k and febrile, transfuse --> If less than 50k and bleeding, transfuse. If neurosurgical bleed, transfuse as well --> plt 168->128-->100-->102-->106->139->131 --> us abd with cholelithiasis # Sepsis - on fluids and abx --> iamging as needed --> consider abx ctx.azithro->doxy # Dehydration --> per renal # Choledocholithiasis with acute cholecystitis --> ERCP when stable -> seen by gi # Dvt ppx heparin sq The timing of this note does not necessarily reflect the time of the patient was seen. Greatly appreciate consultation! Subjective Constitutional: Denies: no symptoms, chills, fever, malaise, weakness, other Cardiovascular: Denies: no symptoms, chest pain, edema, irregular heart rate, lightheadedness, palpitations, syncope, other Respiratory: Denies: no symptoms, cough, shortness of breath, SOB with excertion, SOB at rest, sputum, wheezing, other Gastrointestinal/Abdominal: Denies: no symptoms, abdomen distended, abdominal pain, black stools, tarry stools, blood in stool, constipated, diarrhea, difficulty swallowing, nausea, poor appetite, poor fluid intake, rectal bleeding, vomiting, other Genitourinary: Denies: no symptoms, burning, discharge, frequency, flank pain, hematuria, incontinence, pain, urgency, other Neurologic/Psychiatric: Denies: no symptoms, anxiety, depressed, emotional problems, headache, numbness, paresthesia, pre-existing deficit, seizure, tingling, tremors, weakness, other Endocrine: Denies: no symptoms, excessive sweating, flushing, intolerance to cold, intolerance to heat, increased hunger, increased thirst, increased urine, unexplained weight gain, unexplained weight loss, other Allergies: Coded Allergies: No Known Allergies (Unverified , 04/21/18) Subjective 01/09 labs reviewed, hgb low, on epo and hd today 01/10 for colo today, no bleeding, meds reviewed, bowel prep+ 01/11 for hd today, no bleeding, labs noted, hgb stable 01/12 labs reviewed, meds noted, no night sweats, improved plt 01/14 unlabored breahting, no night sweats, plt remains low, no night sweats 01/15 labs reviewed, no bleeding, meds noted, no bleeding, hgb 8.7 01/16 labs noted,still pending for today, with right cath placement Objective Objective Current Medications Medications (Trade) Dose Ordered Sig/Jamal Route PRN Reason Start Time Stop Time Status Last Admin Dose Admin Acetaminophen (Tylenol) 650 mg Q6H PRN ORAL Mild Pain (Pain Scale 1-3) 01/16/20 20:20 02/15/20 20:19 01/16/20 20:53 Amlodipine Besylate (Norvasc) 2.5 mg DAILY ORAL 01/15/20 14:00 02/14/20 13:59 01/16/20 09:15 Chlorhexidine Gluconate (Jen-Hex 2%) 1 applic DAILY@1999 TOPIC 01/10/20 20:00 04/09/20 19:59 01/16/20 20:55 Dextrose (Dextrose 50%) 25 ml Q30M PRN IV Hypoglycemia 01/08/20 04:15 04/07/20 04:14 01/09/20 12:09 Dextrose (Dextrose 50%) 50 ml Q30M PRN IV Hypoglycemia 01/08/20 04:15 04/07/20 04:14 Doxycycline Hyclate 100 mg/ Dextrose 110 ml @ 110 mls/hr Q12HR IV 01/14/20 14:00 01/21/20 13:59 01/16/20 21:02 Epoetin Andre (Epoetin Andre(ESRD on dialysis)) 6,000 unit THU-THU-THU SUBQ 01/11/20 21:00 04/10/20 20:59 01/16/20 20:56 Heparin Sodium/ Sodium Chloride (Heparin 1000 units/500ml Premix) 1,000 unit ONCE PRN INJ catheter placement 01/16/20 15:45 01/18/20 15:44 Insulin Aspart (NovoLOG) BEFORE MEALS AND HS SUBQ 01/08/20 06:30 04/07/20 06:29 01/16/20 21:14 Lidocaine/ Epinephrine (Lidocaine 2%/ Epi 20ml) 2 ml ONCE PRN INJ catheter placement 01/16/20 15:45 01/18/20 15:44 Lisinopril (ZestriL) 10 mg DAILY ORAL 01/16/20 12:15 02/15/20 12:14 01/16/20 12:32 Loperamide HCl (Imodium) 2 mg Q8H PRN ORAL Diarrhea 01/14/20 15:15 02/13/20 15:14 01/16/20 00:22 Mirtazapine (Remeron) 7.5 mg QHS PRN ORAL insomnia 01/10/20 00:30 04/09/20 00:29 Ondansetron HCl (Zofran) 4 mg Q6H PRN IVP Nausea & Vomiting 01/12/20 16:30 02/11/20 16:29 01/16/20 17:49 Pantoprazole (Protonix) 40 mg DAILY ORAL 01/14/20 09:00 02/13/20 08:59 01/16/20 09:15 Tamsulosin HCl (Flomax) 0.4 mg BID ORAL 01/10/20 13:00 02/08/20 20:59 01/16/20 17:49 Last 24 Hour Vital Signs Date Time Temp Pulse Resp B/P (MAP) Pulse Ox O2 Delivery O2 Flow Rate FiO2 01/17/20 04:00 98.0 70 20 139/63 (88) 96 01/17/20 00:00 98.0 80 20 127/63 (84) 95 01/16/20 21:00 Room Air 01/16/20 20:30 98.1 74 18 118/60 (79) 94 01/16/20 17:08 69 18 2.0 01/16/20 16:00 97.5 81 20 148/87 (107) 94 01/16/20 12:32 149/89 01/16/20 12:00 97.7 79 20 149/89 (109) 94 01/16/20 09:15 68 152/80 01/16/20 09:00 Room Air 01/16/20 08:00 97.7 76 20 153/86 (108) 96 01/16/20 04:00 98.4 76 18 140/85 (103) 96 01/16/20 00:00 98.6 67 18 148/75 (99) 96 01/15/20 21:00 Room Air 01/15/20 20:00 98.4 70 18 151/79 (103) 95 01/15/20 16:00 98.1 66 19 131/67 (88) 98 01/15/20 14:00 65 152/72 01/15/20 12:00 96.8 65 19 152/72 (98) 98 01/15/20 09:00 Room Air 01/15/20 08:00 97.7 65 17 136/76 (96) 98 Intake and Output 01/16/20 01/17/20 19:00 07:00 Intake Total 240 ml 260 ml Output Total 200 ml 200 ml Balance 40 ml 60 ml Intake Oral 240 ml 150 ml IV Total 110 ml Output Urine Total 200 ml 200 ml # Bowel Movements 2 1 Labs Test 01/14/20 08:49 01/14/20 11:52 01/14/20 15:51 01/14/20 18:50 Stool Occult Blood Negative (NEGATIVE) POC Whole Blood Glucose 158 MG/DL (74-106) 119 MG/DL (74-106) Urine Color Pale yellow Urine Appearance Slightly cloudy Urine pH 5 (4.5-8.0) Urine Specific [place] 1.015 (1.005-1.035) Urine Protein 2+ (NEGATIVE) Urine Glucose (UA) Negative (NEGATIVE) Urine Ketones Negative (NEGATIVE) Urine Blood 1+ (NEGATIVE) Urine Nitrite Negative (NEGATIVE) Urine Bilirubin Negative (NEGATIVE) Urine Urobilinogen Normal MG/DL (0.0-1.0) Urine Leukocyte Esterase Negative (NEGATIVE) Urine RBC 2-4 /HPF (0 - 0) Urine WBC 0-2 /HPF (0 - 0) Urine Squamous Epithelial Cells Occasional /LPF Urine Amorphous Sediment Moderate /LPF (NONE) Urine Bacteria Few /HPF (NONE) Test 01/14/20 21:28 01/15/20 05:28 01/15/20 05:30 01/15/20 05:40 POC Whole Blood Glucose 118 MG/DL (74-106) 62 MG/DL (74-106) 63 MG/DL (74-106) White Blood Count 12.5 K/UL (4.8-10.8) Red Blood Count 2.86 M/UL (4.70-6.10) Hemoglobin 8.9 G/DL (14.2-18.0) Hematocrit 26.7 % (42.0-52.0) Mean Corpuscular Volume 93 FL (80-99) Mean Corpuscular Hemoglobin 31.1 PG (27.0-31.0) Mean Corpuscular Hemoglobin Concent 33.4 G/DL (32.0-36.0) Red Cell Distribution Width 14.6 % (11.6-14.8) Platelet Count 139 K/UL (150-450) Mean Platelet Volume 5.8 FL (6.5-10.1) Neutrophils (%) (Auto) % (45.0-75.0) Lymphocytes (%) (Auto) % (20.0-45.0) Monocytes (%) (Auto) % (1.0-10.0) Eosinophils (%) (Auto) % (0.0-3.0) Basophils (%) (Auto) % (0.0-2.0) Differential Total Cells Counted 100 Neutrophils % (Manual) 86 % (45-75) Lymphocytes % (Manual) 11 % (20-45) Monocytes % (Manual) 0 % (1-10) Eosinophils % (Manual) 3 % (0-3) Basophils % (Manual) 0 % (0-2) Band Neutrophils 0 % (0-8) Platelet Estimate Decreased Platelet Morphology Normal Anisocytosis 1+ Sodium Level 138 MMOL/L (136-145) Potassium Level 3.3 MMOL/L (3.5-5.1) Chloride Level 105 MMOL/L (98-107) Carbon Dioxide Level 22 MMOL/L (21-32) Anion Gap 12 mmol/L (5-15) Blood Urea Nitrogen 43 mg/dL (7-18) Creatinine 4.8 MG/DL (0.55-1.30) Estimat Glomerular Filtration Rate 12.3 mL/min (>60) Glucose Level 69 MG/DL (74-106) Calcium Level 7.3 MG/DL (8.5-10.1) Phosphorus Level 3.6 MG/DL (2.5-4.9) Magnesium Level 1.8 MG/DL (1.8-2.4) Total Bilirubin 0.5 MG/DL (0.2-1.0) Aspartate Amino Transf (AST/SGOT) 17 U/L (15-37) Alanine Aminotransferase (ALT/SGPT) 16 U/L (12-78) Alkaline Phosphatase 107 U/L (46-116) Total Protein 6.0 G/DL (6.4-8.2) Albumin 2.0 G/DL (3.4-5.0) Globulin 4.0 g/dL Albumin/Globulin Ratio 0.5 (1.0-2.7) Test 01/15/20 06:00 01/15/20 11:28 01/15/20 16:42 01/15/20 20:45 POC Whole Blood Glucose 78 MG/DL (74-106) 133 MG/DL (74-106) 86 MG/DL (74-106) 143 MG/DL (74-106) Test 01/16/20 05:44 01/16/20 05:50 01/16/20 11:32 01/16/20 20:48 POC Whole Blood Glucose 112 MG/DL (74-106) 123 MG/DL (74-106) White Blood Count 11.4 K/UL (4.8-10.8) Red Blood Count 2.72 M/UL (4.70-6.10) Hemoglobin 8.7 G/DL (14.2-18.0) Hematocrit 25.3 % (42.0-52.0) Mean Corpuscular Volume 93 FL (80-99) Mean Corpuscular Hemoglobin 31.8 PG (27.0-31.0) Mean Corpuscular Hemoglobin Concent 34.2 G/DL (32.0-36.0) Red Cell Distribution Width 14.7 % (11.6-14.8) Platelet Count 131 K/UL (150-450) Mean Platelet Volume 6.3 FL (6.5-10.1) Neutrophils (%) (Auto) % (45.0-75.0) Lymphocytes (%) (Auto) % (20.0-45.0) Monocytes (%) (Auto) % (1.0-10.0) Eosinophils (%) (Auto) % (0.0-3.0) Basophils (%) (Auto) % (0.0-2.0) Differential Total Cells Counted 100 Neutrophils % (Manual) 90 % (45-75) Lymphocytes % (Manual) 5 % (20-45) Monocytes % (Manual) 3 % (1-10) Eosinophils % (Manual) 1 % (0-3) Basophils % (Manual) 1 % (0-2) Band Neutrophils 0 % (0-8) Platelet Estimate Decreased Platelet Morphology Normal Hypochromasia 1+ Anisocytosis 1+ Sodium Level 142 MMOL/L (136-145) Potassium Level 3.5 MMOL/L (3.5-5.1) Chloride Level 107 MMOL/L (98-107) Carbon Dioxide Level 27 MMOL/L (21-32) Anion Gap 8 mmol/L (5-15) Blood Urea Nitrogen 23 mg/dL (7-18) Creatinine 3.4 MG/DL (0.55-1.30) Estimat Glomerular Filtration Rate 18.3 mL/min (>60) Glucose Level 130 MG/DL (74-106) Calcium Level 7.2 MG/DL (8.5-10.1) Phosphorus Level 2.5 MG/DL (2.5-4.9) Total Bilirubin 0.4 MG/DL (0.2-1.0) Aspartate Amino Transf (AST/SGOT) 19 U/L (15-37) Alanine Aminotransferase (ALT/SGPT) 15 U/L (12-78) Alkaline Phosphatase 105 U/L (46-116) Total Protein 5.7 G/DL (6.4-8.2) Albumin 1.9 G/DL (3.4-5.0) Globulin 3.8 g/dL Albumin/Globulin Ratio 0.5 (1.0-2.7) Test 01/17/20 05:01 01/17/20 05:40 POC Whole Blood Glucose 84 MG/DL (74-106) Height (Feet): 5 Height (Inches): 4.00 Weight (Pounds): 99 Objective Physical Exam Vitals: reviewed General: GCS 15, Chronically Ill - Cachectic Heent: dry mucus membranes, full range of motion, supple, no meningismus Respiratory: chest non-tender, lungs clear, normal breath sounds Cardiovascular: bradycardia, 2+ radial (R) Gastrointestinal: other - Spider habitus, decreased bowel sound Musculoskeletal: back normal, normal range of motion, no calf tenderness Neurologic: oriented - x 2 Psychiatric: mood/affect normal Skin: pallor - Sallow and cold Guero Hernandez MD Jan 17, 2020 06:45
[2020-01-17 06:57] LABS: HEMATOCRIT 25.4 % (42.0-52.0); HEMOGLOBIN 8.3 G/DL (14.2-18.0); MEAN CORPUSCULAR VOLUME 97 FL (80-99); PLATELET COUNT 114 K/UL (150-450); RED BLOOD COUNT 2.62 M/UL (4.70-6.10); RED CELL DISTRIBUTION WIDTH 14.5 % (11.6-14.8); WHITE BLOOD COUNT 11.4 K/UL (4.8-10.8)
--- NOTE | 2020-01-17 07:04 | NUR ---
HAND-OFF: Report given to AMARILIS Duke.
--- NOTE | 2020-01-17 07:05 | General Progress Note ---
Subjective ROS Limited/Unobtainable: Yes Allergies: Coded Allergies: No Known Allergies (Unverified , 04/21/18) Objective Last 24 Hour Vital Signs Date Time Temp Pulse Resp B/P (MAP) Pulse Ox O2 Delivery O2 Flow Rate FiO2 01/17/20 04:00 98.0 70 20 139/63 (88) 96 01/17/20 00:00 98.0 80 20 127/63 (84) 95 01/16/20 21:00 Room Air 01/16/20 20:30 98.1 74 18 118/60 (79) 94 01/16/20 17:08 69 18 2.0 01/16/20 16:00 97.5 81 20 148/87 (107) 94 01/16/20 12:32 149/89 01/16/20 12:00 97.7 79 20 149/89 (109) 94 01/16/20 09:15 68 152/80 01/16/20 09:00 Room Air 01/16/20 08:00 97.7 76 20 153/86 (108) 96 Intake and Output 01/16/20 01/17/20 19:00 07:00 Intake Total 240 ml 260 ml Output Total 200 ml 200 ml Balance 40 ml 60 ml Intake Oral 240 ml 150 ml IV Total 110 ml Output Urine Total 200 ml 200 ml # Bowel Movements 2 1 Laboratory Tests 01/16/20 11:32: POC Whole Blood Glucose 123H 01/16/20 20:48: POC Whole Blood Glucose [Pending] 01/17/20 05:01: POC Whole Blood Glucose 84 01/17/20 05:40: White Blood Count 11.4H, Red Blood Count 2.62L, Hemoglobin 8.3L, Hematocrit 25.4L, Mean Corpuscular Volume 97, Mean Corpuscular Hemoglobin 31.6H, Mean Corpuscular Hemoglobin Concent 32.6, Red Cell Distribution Width 14.5, Platelet Count 114L, Mean Platelet Volume 6.0L, Neutrophils (%) (Auto) , Lymphocytes (%) (Auto) , Monocytes (%) (Auto) , Eosinophils (%) (Auto) , Basophils (%) (Auto) , Neutrophils % (Manual) [Pending], Lymphocytes % (Manual) [Pending], Platelet Estimate [Pending], Platelet Morphology [Pending], Sodium Level [Pending], Potassium Level [Pending], Chloride Level [Pending], Carbon Dioxide Level [Pending], Blood Urea Nitrogen [Pending], Creatinine [Pending], Estimat Glomerular Filtration Rate [Pending], Glucose Level [Pending], Uric Acid [Pending], Calcium Level [Pending], Phosphorus Level [Pending], Magnesium Level [Pending], Total Bilirubin [Pending], Aspartate Amino Transf (AST/SGOT) [Pending], Alanine Aminotransferase (ALT/SGPT) [Pending], Alkaline Phosphatase [Pending], C-Reactive Protein, Quantitative [Pending], Pro-B-Type Natriuretic Peptide [Pending], Total Protein [Pending], Albumin [Pending], Globulin [Pending] Height (Feet): 5 Height (Inches): 4.00 Weight (Pounds): 99 General Appearance: no apparent distress EENT: normal ENT inspection Neck: supple Cardiovascular: normal rate Respiratory/Chest: decreased breath sounds Abdomen: normal bowel sounds, non tender, soft Extremities: non-tender Assessment/Plan Problem List: (1) Gallstones ICD Codes: K80.20 - Calculus of gallbladder without cholecystitis without obstruction SNOMED: 462631642 (2) Renal failure ICD Codes: N19 - Unspecified kidney failure SNOMED: 88504505 Qualifiers: Qualified Codes: N17.9 - Acute kidney failure, unspecified (3) Anemia ICD Codes: D64.9 - Anemia, unspecified SNOMED: 222741435 Qualifiers: Qualified Codes: D64.9 - Anemia, unspecified (4) Diabetes ICD Codes: E11.9 - Type 2 diabetes mellitus without complications SNOMED: 93585834 Status: stable Assessment/Plan: s/p EGD and colonoscopy s/p ERCP and stenting needs ercp and stent removal in 8-12 weeks patient was given my card to call for FU fu surg recs HD per nephrology fu labs protonix po daily repeat cbc re check stool ob>>> neg will León Lara MD Jan 17, 2020 07:05
[2020-01-17 07:07] LABS: CALCIUM 7.2 MG/DL (8.5-10.1); POTASSIUM 3.5 MMOL/L (3.5-5.1)
[2020-01-17 07:08] LABS: ALBUMIN 1.8 G/DL (3.4-5.0); ALBUMIN/GLOBULIN RATIO 0.5 (1.0-2.7); BILIRUBIN,TOTAL 0.5 MG/DL (0.2-1.0)
--- NOTE | 2020-01-17 07:30 | General Progress Note ---
Subjective Allergies: Coded Allergies: No Known Allergies (Unverified , 04/21/18) Subjective doing better bleeding from ij stopped weakness Objective Last 24 Hour Vital Signs Date Time Temp Pulse Resp B/P (MAP) Pulse Ox O2 Delivery O2 Flow Rate FiO2 01/17/20 04:00 98.0 70 20 139/63 (88) 96 01/17/20 00:00 98.0 80 20 127/63 (84) 95 01/16/20 21:00 Room Air 01/16/20 20:30 98.1 74 18 118/60 (79) 94 01/16/20 17:08 69 18 2.0 01/16/20 16:00 97.5 81 20 148/87 (107) 94 01/16/20 12:32 149/89 01/16/20 12:00 97.7 79 20 149/89 (109) 94 01/16/20 09:15 68 152/80 01/16/20 09:00 Room Air 01/16/20 08:00 97.7 76 20 153/86 (108) 96 Intake and Output 01/16/20 01/17/20 19:00 07:00 Intake Total 240 ml 260 ml Output Total 200 ml 200 ml Balance 40 ml 60 ml Intake Oral 240 ml 150 ml IV Total 110 ml Output Urine Total 200 ml 200 ml # Bowel Movements 2 1 Laboratory Tests 01/16/20 11:32: POC Whole Blood Glucose 123H 01/16/20 20:48: POC Whole Blood Glucose [Pending] 01/17/20 05:01: POC Whole Blood Glucose 84 01/17/20 05:40: White Blood Count 11.4H, Red Blood Count 2.62L, Hemoglobin 8.3L, Hematocrit 25.4L, Mean Corpuscular Volume 97, Mean Corpuscular Hemoglobin 31.6H, Mean Corpuscular Hemoglobin Concent 32.6, Red Cell Distribution Width 14.5, Platelet Count 114L, Mean Platelet Volume 6.0L, Neutrophils (%) (Auto) , Lymphocytes (%) (Auto) , Monocytes (%) (Auto) , Eosinophils (%) (Auto) , Basophils (%) (Auto) , Neutrophils % (Manual) [Pending], Lymphocytes % (Manual) [Pending], Platelet Estimate [Pending], Platelet Morphology [Pending], Sodium Level 138, Potassium Level 3.5, Chloride Level 105, Carbon Dioxide Level 27, Anion Gap 6, Blood Urea Nitrogen 27H, Creatinine 4.0H, Estimat Glomerular Filtration Rate 15.2, Glucose Level 75, Uric Acid 3.6, Calcium Level 7.2L, Phosphorus Level 3.0, Magnesium Lev el 1.5L, Total Bilirubin 0.5, Aspartate Amino Transf (AST/SGOT) 18, Alanine Aminotransferase (ALT/SGPT) 12, Alkaline Phosphatase 106, C-Reactive Protein, Quantitative 8.9H, Pro-B-Type Natriuretic Peptide [id number], Total Protein 5.7L, Albumin 1.8L, Globulin 3.9, Albumin/Globulin Ratio 0.5L Height (Feet): 5 Height (Inches): 4.00 Weight (Pounds): 99 General Appearance: alert EENT: PERRL/EOMI Cardiovascular: normal rate Respiratory/Chest: lungs clear Abdomen: non tender, soft Extremities: non-tender Assessment/Plan Status: stable Assessment/Plan: ac kidney failure improving 1 anemia r/o gi bleeding hh better 2 severe malnutrition 3 wt loss 4 fever r/o sepsis 5 dm type 2 gi w/u today cont ss, accue check pt/ot eval dc plan to snf dw pillowcase maker Kamron Allan MD Jan 17, 2020 07:30
[2020-01-17 08:00] VITALS: BP 139/84
[2020-01-17] MEDS: Lisinopril 10mg tab ORAL SCH (08:58)
[2020-01-17] MEDS: Tamsulosin 0.4mg cap ORAL SCH ×2 (08:58→17:12)
[2020-01-17] MEDS: Doxycycline 100mg in D5W 110ml IV SCH (09:27)
--- NOTE | 2020-01-17 09:58 | NUR ---
*-*DISCHARGE PLANNING*-* PATIENT HAS BEEN REFERRED TO: [facility] P: [phone] S/W CASEY, ADMISSION NOT AVAILABLE AT THIS TIME, CALL BACK.
--- NOTE | 2020-01-17 10:38 | Surgery Progress Note ---
Surgery Progress Note Subjective Additional Comments no acute events comfortable labs noted no complaints Objective Last 24 Hour Vital Signs Date Time Temp Pulse Resp B/P (MAP) Pulse Ox O2 Delivery O2 Flow Rate FiO2 01/17/20 08:58 139/84 01/17/20 08:58 84 139/84 01/17/20 08:00 97.9 84 19 139/84 (102) 100 01/17/20 04:00 98.0 70 20 139/63 (88) 96 01/17/20 00:00 98.0 80 20 127/63 (84) 95 01/16/20 21:00 Room Air 01/16/20 20:30 98.1 74 18 118/60 (79) 94 01/16/20 17:08 69 18 2.0 01/16/20 16:00 97.5 81 20 148/87 (107) 94 01/16/20 12:32 149/89 01/16/20 12:00 97.7 79 20 149/89 (109) 94 I&O l Intake and Output 01/16/20 01/17/20 19:00 07:00 Intake Total 240 ml 260 ml Output Total 200 ml 200 ml Balance 40 ml 60 ml Intake Oral 240 ml 150 ml IV Total 110 ml Output Urine Total 200 ml 200 ml # Bowel Movements 2 1 Dressing: other Wound: other Cardiovascular: RSR Respiratory: decreased breath sounds Abdomen: soft, non-tender, present bowel sounds Extremities: no tenderness, no cyanosis Laboratory Tests Test 01/16/20 11:32 01/16/20 20:48 01/17/20 05:01 01/17/20 05:40 POC Whole Blood Glucose 123 MG/DL (74-106) H Pending 84 MG/DL (74-106) White Blood Count 11.4 K/UL (4.8-10.8) H Red Blood Count 2.62 M/UL (4.70-6.10) L Hemoglobin 8.3 G/DL (14.2-18.0) L Hematocrit 25.4 % (42.0-52.0) L Mean Corpuscular Volume 97 FL (80-99) Mean Corpuscular Hemoglobin 31.6 PG (27.0-31.0) H Mean Corpuscular Hemoglobin Concent 32.6 G/DL (32.0-36.0) Red Cell Distribution Width 14.5 % (11.6-14.8) Platelet Count 114 K/UL (150-450) L Mean Platelet Volume 6.0 FL (6.5-10.1) L Neutrophils (%) (Auto) % (45.0-75.0) Lymphocytes (%) (Auto) % (20.0-45.0) Monocytes (%) (Auto) % (1.0-10.0) Eosinophils (%) (Auto) % (0.0-3.0) Basophils (%) (Auto) % (0.0-2.0) Differential Total Cells Counted 100 Neutrophils % (Manual) 88 % (45-75) H Lymphocytes % (Manual) 10 % (20-45) L Monocytes % (Manual) 2 % (1-10) Eosinophils % (Manual) 0 % (0-3) Basophils % (Manual) 0 % (0-2) Band Neutrophils 0 % (0-8) Platelet Estimate Decreased L Platelet Morphology Normal Red Blood Cell Morphology Normal Sodium Level 138 MMOL/L (136-145) Potassium Level 3.5 MMOL/L (3.5-5.1) Chloride Level 105 MMOL/L (98-107) Carbon Dioxide Level 27 MMOL/L (21-32) Anion Gap 6 mmol/L (5-15) Blood Urea Nitrogen 27 mg/dL (7-18) H Creatinine 4.0 MG/DL (0.55-1.30) H Estimat Glomerular Filtration Rate 15.2 mL/min (>60) Glucose Level 75 MG/DL (74-106) Uric Acid 3.6 MG/DL (2.6-7.2) Calcium Level 7.2 MG/DL (8.5-10.1) L Phosphorus Level 3.0 MG/DL (2.5-4.9) Magnesium Level 1.5 MG/DL (1.8-2.4) L Total Bilirubin 0.5 MG/DL (0.2-1.0) Aspartate Amino Transf (AST/SGOT) 18 U/L (15-37) Alanine Aminotransferase (ALT/SGPT) 12 U/L (12-78) Alkaline Phosphatase 106 U/L (46-116) C-Reactive Protein, Quantitative 8.9 mg/dL (0.00-0.90) H Pro-B-Type Natriuretic Peptide 12386 pg/mL (0-125) H Total Protein 5.7 G/DL (6.4-8.2) L Albumin 1.8 G/DL (3.4-5.0) L Globulin 3.9 g/dL Albumin/Globulin Ratio 0.5 (1.0-2.7) L Plan Problems: (1) Bleeding due to dialysis catheter placement Assessment & Plan: 64-year-old male recently had a right temporary internal jugular dialysis catheter placement by interventional radiology. Patient has been oozing and bleeding from the site since multiple dressings have been changed surgeries been called to evaluate assist with care. Patient seen, patient evaluated, chart reviewed. The site was evaluated dressings were removed there was a large hematoma identified. Hematoma was evacuated removed and site was cleaned with normal saline and gauze. once cleaned was identified that the lateral stitch was oozing and was able to be tightened with surgical instruments the bedside. Once the stitch was tightened down the hemostasis identified pressure was held for 10 minutes and then monitored for a few minutes and hemostasis noted. New dressing applied. Will monitor site. Thank you for your participation's care (2) Hyperkalemia (3) Anemia (4) Ascites (5) Hypoglycemia (6) Pancreatitis Assessment & Plan: DAILY ESTIMATED NEEDS: Needs based on Renal, underweight, 46.8kg 30-35 kcals/kg [id number] total kcals .8-1.2 (w HD 1.2-1.8) g protein/kg 37-56 (w/ HD 56-84 g total protein Fluid per MD NUTRITION DIAGNOSIS: Altered nutrition related lab values R/T renal failure, clinical condition as evidenced by low POC glu (19 18, now improved), elev bun (145-> 64 trend down) and creat (9.7->6.0), elev K on adm (6.6->wnl), elev phos (5.5), pt now on HD. CURRENT DIET:Renal PO DIET RECOMMENDATIONS: RENAL DIET/ Texture as tolerated ADDITIONAL RECOMMENDATIONS: * Standing wt as able for accurate CBW * Monitor for HD initiation- now on HD, first HD on 01/09 * Nepro TID w/ meals (425kcal/19g prot each) * Monitor for continued good PO intake * Check POC glu q3-4 hrs, maintain D5 w/ low BG. * Monitor phos, need for phos binder w/ meals. * Add snacks in b.w meals;pm snack intake to prevent am hypoglycemia (7) Renal failure (8) Sepsis (9) Metabolic acidosis (10) Gallstones (11) Community acquired pneumonia (12) Diabetes (13) Failure to thrive Assessment & Plan: patient with multiple loose BM developing incontinence associated dermatitis around perineum discussed with team monitor for incontinence change accordingly apply triad after clean up thank you (14) Ureter obstruction (15) JONA (acute kidney injury) (16) Acute cholecystitis (17) Choledocholithiasis with acute cholecystitis Assessment & Plan: discussed with GI Recommend cholecystectomy when patient agreeable and stable and medically clear ercp Gallbladder is filled with gallstones. The common bile duct is also filled with gallstones. Common bile duct is dilated, measuring 11 mm in diameter. There is mild central intrahepatic biliary ductal dilatation. No obstructing ampullary mass demonstrated. Considerable signal dropout on the fat saturated images in the liver indicates fatty liver. The pancreas, spleen, adrenals are unremarkable. The kidneys demonstrate bilateral cysts. No pelvic mass or adenopathy. Free intraperitoneal fluid is demonstrated. This is mostly seen surrounding the liver. Impression: Somewhat limited exam, as described Cholelithiasis. There is also choledocholithiasis and biliary ductal dilatation. Although choledocholithiasis was reported on the prior study, calculi are much more extensive within the common bile duct on the current exam Ascites fluid, increased in extent from previous study Bilateral renal cyst Bilateral pleural effusions (18) Dehydration (19) Bradycardia (20) Hypothermia (21) Rectal bleeding (22) Gall bladder stones (23) Gallstone pancreatitis (24) GI Martin Sterling Jan 17, 2020 10:38
--- NOTE | 2020-01-17 10:48 | Diagnostic Imaging Report ---
Indications: Needs long-term dialysis access Technique: Patient given IV Ancef. Total sterile technique, including sterile probe cover and sterile gel, sterile gloves, hand hygiene, hat, mask,, sterile gown, large sterile drape, and preparation with 2% chlorhexidine utilized. Local anesthesia with 1% lidocaine. Ultrasound demonstrated patent compressible right internal jugular vein. Under real-time ultrasound guidance and with real-time visualization of the needle entering the vein lumen, puncture right internal jugular vein using 21-gauge micropuncture needle, passage 0.018 guidewire, exchange for 4 Swazi micropuncture introducer. The guidewire was used to measure the appropriate catheter length, and was removed. The sheath was left in place. The subcutaneous tract was then anesthetized with 1% lidocaine. A chest dermatotomy was made . The tunneling device was used to pull a 14.5 Swazi 23 cm Bio Flow catheter through the subcutaneous tunnel to the neck dermatotomy. A guidewire was passed through the neck introducer into the inferior vena cava, and serial dilators were passed over it, followed by the introduction of a 14.5 Swazi AirGuard peel-away sheath. The catheter was then introduced into the sheath, the peel-away sheath was removed. Digital radiograph documents satisfactory catheter tip position in the high right atrium, no kinking at the insertion site. Both catheter ports aspirated and flushed. Catheter was fixed to the skin. Patient tolerated procedure well without immediate complication. Total fluoroscopy time 55.6 minutes. Total dose area product 0.2867 dGycm2 Total number of images-1 Comparison: None. Findings: Completion radiograph documents satisfactory position and course of the catheter, catheter tip at the high right atrium. Impression: Successful placement of right transjugular tunneled dialysis catheter, as described above
--- NOTE | 2020-01-17 10:55 | Pulmonology Progress Note ---
Subjective ROS Limited/Unobtainable: Yes Interval Events: None new Constitutional: Reports: no symptoms HEENT: Repors: no symptoms Respiratory: Reports: no symptoms Cardiovascular: Reports: no symptoms Gastrointestinal/Abdominal: Reports: no symptoms Genitourinary: Reports: no symptoms Allergies: Coded Allergies: No Known Allergies (Unverified , 04/21/18) Objective Last 24 Hour Vital Signs Date Time Temp Pulse Resp B/P (MAP) Pulse Ox O2 Delivery O2 Flow Rate FiO2 01/17/20 09:00 Room Air 01/17/20 08:58 139/84 01/17/20 08:58 84 139/84 01/17/20 08:00 97.9 84 19 139/84 (102) 100 01/17/20 04:00 98.0 70 20 139/63 (88) 96 01/17/20 00:00 98.0 80 20 127/63 (84) 95 01/16/20 21:00 Room Air 01/16/20 20:30 98.1 74 18 118/60 (79) 94 01/16/20 17:08 69 18 2.0 01/16/20 16:00 97.5 81 20 148/87 (107) 94 01/16/20 12:32 149/89 01/16/20 12:00 97.7 79 20 149/89 (109) 94 Intake and Output 01/16/20 01/17/20 19:00 07:00 Intake Total 240 ml 260 ml Output Total 200 ml 200 ml Balance 40 ml 60 ml Intake Oral 240 ml 150 ml IV Total 110 ml Output Urine Total 200 ml 200 ml # Bowel Movements 2 1 General Appearance: no acute distress HEENT: normocephalic Respiratory: chest wall non-tender, lungs clear Cardiovascular: normal peripheral pulses Abdomen: normal bowel sounds Microbiology Date/Time Source Procedure Growth Status 01/14/20 18:50 Indwelling Cath Urine Culture - Final NO GROWTH AFTER 48 HOURS Complete Laboratory Tests 01/16/20 11:32: POC Whole Blood Glucose 123H 01/16/20 20:48: POC Whole Blood Glucose [Pending] 01/17/20 05:01: POC Whole Blood Glucose 84 01/17/20 05:40: White Blood Count 11.4H, Red Blood Count 2.62L, Hemoglobin 8.3L, Hematocrit 25.4L, Mean Corpuscular Volume 97, Mean Corpuscular Hemoglobin 31.6H, Mean Corpuscular Hemoglobin Concent 32.6, Red Cell Distribution Width 14.5, Platelet Count 114L, Mean Platelet Volume 6.0L, Neutrophils (%) (Auto) , Lymphocytes (%) (Auto) , Monocytes (%) (Auto) , Eosinophils (%) (Auto) , Basophils (%) (Auto) , Differential Total Cells Counted 100, Neutrophils % (Manual) 88H, Lymphocytes % (Manual) 10L, Monocytes % (Manual) 2, Eosinophils % (Manual) 0, Basophils % (Manual) 0, Band Neutrophils 0, Platelet Estimate DecreasedL, Platelet Morphology Normal, Red Blood Cell Morphology Normal, Sodium Level 138, Potassium Level 3.5, Chloride Level 105, Carbon Dioxide Level 27, Anion Gap 6, Blood Urea Nitrogen 27H, Creatinine 4.0H, Estimat Glomerular Filtration Rate 15.2, Glucose Level 75, Uric Acid 3.6, Calcium Level 7.2L, Phosphorus Level 3.0, Magnesium Level 1.5L, Total Bilirubin 0.5, Aspartate Amino Transf (AST/SGOT) 18, Alanine Aminotransferase (ALT/SGPT) 12, Alkaline Phosphatase 106, C-Reactive Protein, Quantitative 8.9H, Pro-B-Type Natriuretic Peptide 09842J, Total Protein 5.7L, Albumin 1.8L, Globulin 3.9, Albumin/Globulin Ratio 0.5L Current Medications Medications (Trade) Dose Ordered Sig/Jamal Route PRN Reason Start Time Stop Time Status Last Admin Dose Admin Acetaminophen (Tylenol) 650 mg Q6H PRN ORAL Mild Pain (Pain Scale 1-3) 01/16/20 20:20 02/15/20 20:19 01/16/20 20:53 Amlodipine Besylate (Norvasc) 2.5 mg DAILY ORAL 01/15/20 14:00 02/14/20 13:59 01/17/20 08:58 Chlorhexidine Gluconate (Jen-Hex 2%) 1 applic DAILY@1999 TOPIC 01/10/20 20:00 04/09/20 19:59 01/16/20 20:55 Dextrose (Dextrose 50%) 25 ml Q30M PRN IV Hypoglycemia 01/08/20 04:15 04/07/20 04:14 01/09/20 12:09 Dextrose (Dextrose 50%) 50 ml Q30M PRN IV Hypoglycemia 01/08/20 04:15 04/07/20 04:14 Doxycycline Hyclate 100 mg/ Dextrose 110 ml @ 110 mls/hr Q12HR IV 01/14/20 14:00 01/21/20 13:59 01/17/20 09:27 Epoetin Andre (Epoetin Andre(ESRD on dialysis)) 6,000 unit THU-THU-THU SUBQ 01/11/20 21:00 04/10/20 20:59 01/16/20 20:56 Heparin Sodium/ Sodium Chloride (Heparin 1000 units/500ml Premix) 1,000 unit ONCE PRN INJ catheter placement 01/16/20 15:45 01/18/20 15:44 Insulin Aspart (NovoLOG) BEFORE MEALS AND HS SUBQ 01/08/20 06:30 04/07/20 06:29 01/16/20 21:14 Lidocaine/ Epinephrine (Lidocaine 2%/ Epi 20ml) 2 ml ONCE PRN INJ catheter placement 01/16/20 15:45 01/18/20 15:44 Lisinopril (ZestriL) 10 mg DAILY ORAL 01/16/20 12:15 02/15/20 12:14 01/17/20 08:58 Loperamide HCl (Imodium) 2 mg Q8H PRN ORAL Diarrhea 01/14/20 15:15 02/13/20 15:14 01/16/20 00:22 Mirtazapine (Remeron) 7.5 mg QHS PRN ORAL insomnia 01/10/20 00:30 04/09/20 00:29 Ondansetron HCl (Zofran) 4 mg Q6H PRN IVP Nausea & Vomiting 01/12/20 16:30 02/11/20 16:29 01/16/20 17:49 Pantoprazole (Protonix) 40 mg DAILY ORAL 01/14/20 09:00 02/13/20 08:59 01/17/20 08:58 Tamsulosin HCl (Flomax) 0.4 mg BID ORAL 01/10/20 13:00 02/08/20 20:59 01/17/20 08:58 Assessment/Plan Assessment/Plan ASSESSMENT AND PLAN: 1. Sinus bradycardia. 2. Profound anemia, status post blood transfusion. 3. Mild pulmonary hypertension 4. Probable pneumonia Agree with broad-spectrum antibiotics. Started on Doxy for atypicals Mild leucocytosis noted; ow 11.4 saturating well on RA S/p hemodialysis Nataliya Mclaughlin Omar Syed MD Jan 17, 2020 10:55
--- NOTE | 2020-01-17 11:17 | Nephrology Progress Note ---
Assessment/Plan Problem List: (1) JONA (acute kidney injury) (2) Hyperkalemia (3) Anemia (4) Metabolic acidosis (5) Ureter obstruction (6) Failure to thrive Assessment Renal failure acute, superimposed on chronic Hyperkalemia Acidosis Presented with severe anemia on admission, transfused 3 units packed RBCs since admission. History of hypertension History of diabetes mellitus 01/09/2020----PATIENT NEED EMERGENCY LIFE SAVING DIALYSIS Plan January 16: Labs reviewed. Medication reviewed. Due for dialysis tomorrow. Magnesium supplement given. Check 2D echocardiogram. January 15: Dialyzed yesterday. Monitor renal parameters. Adjust blood pressure medications. Due for placement of tunneled catheter. Continue same management. January 14: Patient due for dialysis today. Blood culture for the past 24 hours is negative. Continue to monitor CBC CRP and blood cultures and when appropriate to proceed with tunneled catheter placement. January 13: Patient's last dialysis January 11. Next dialysis tomorrow January 14. Patient still have a nontunneled catheter as may have underlying bacteremia. Surveillance blood cultures ordered. January 12: Patient dialyzed yesterday. Due for tunneled catheter placement today. Continue dialysis as needed. Patient has a Torres catheter now. January 11: Patient due for dialysis today. Continue per GI management. Labs reviewed. Will arrange for tunneled dialysis catheter and outpatient dialysis center placement. Urological evaluation pending. January 10: Patient was dialyzed January 08. Is undergoing GI evaluation. Labs reviewed. Due for dialysis again tomorrow. Urological evaluation for bladder retention pending. Insertion of temporary non tunneled dialysis catheter followed by dialysis to correct acidosis hyperkalemia, done yesterday Continue per consultants Monitor electrolytes and renal parameters Hemodialysis as needed Urology evaluation for urinary retention Per orders Subjective ROS Limited/Unobtainable: No Constitutional: Reports: malaise Objective Objective Last 24 Hour Vital Signs Date Time Temp Pulse Resp B/P (MAP) Pulse Ox O2 Delivery O2 Flow Rate FiO2 01/17/20 09:00 Room Air 01/17/20 08:58 139/84 01/17/20 08:58 84 139/84 01/17/20 08:00 97.9 84 19 139/84 (102) 100 01/17/20 04:00 98.0 70 20 139/63 (88) 96 01/17/20 00:00 98.0 80 20 127/63 (84) 95 01/16/20 21:00 Room Air 01/16/20 20:30 98.1 74 18 118/60 (79) 94 01/16/20 17:08 69 18 2.0 01/16/20 16:00 97.5 81 20 148/87 (107) 94 01/16/20 12:32 149/89 01/16/20 12:00 97.7 79 20 149/89 (109) 94 Intake and Output 01/16/20 01/17/20 19:00 07:00 Intake Total 240 ml 260 ml Output Total 200 ml 200 ml Balance 40 ml 60 ml Intake Oral 240 ml 150 ml IV Total 110 ml Output Urine Total 200 ml 200 ml # Bowel Movements 2 1 Current Medications Medications (Trade) Dose Ordered Sig/Jamal Route PRN Reason Start Time Stop Time Status Last Admin Dose Admin Acetaminophen (Tylenol) 650 mg Q6H PRN ORAL Mild Pain (Pain Scale 1-3) 01/16/20 20:20 02/15/20 20:19 01/16/20 20:53 Amlodipine Besylate (Norvasc) 2.5 mg DAILY ORAL 01/15/20 14:00 02/14/20 13:59 01/17/20 08:58 Chlorhexidine Gluconate (Jen-Hex 2%) 1 applic DAILY@2000 TOPIC 01/10/20 20:00 04/09/20 19:59 01/16/20 20:55 Dextrose (Dextrose 50%) 25 ml Q30M PRN IV Hypoglycemia 01/08/20 04:15 04/07/20 04:14 01/09/20 12:09 Dextrose (Dextrose 50%) 50 ml Q30M PRN IV Hypoglycemia 01/08/20 04:15 04/07/20 04:14 Doxycycline Hyclate 100 mg/ Dextrose 110 ml @ 110 mls/hr Q12HR IV 01/14/20 14:00 01/21/20 13:59 01/17/20 09:27 Epoetin Andre (Epoetin Andre(ESRD on dialysis)) 6,000 unit THU-THU-THU SUBQ 01/11/20 21:00 04/10/20 20:59 01/16/20 20:56 Heparin Sodium/ Sodium Chloride (Heparin 1000 units/500ml Premix) 1,000 unit ONCE PRN INJ catheter placement 01/16/20 15:45 01/18/20 15:44 Insulin Aspart (NovoLOG) BEFORE MEALS AND HS SUBQ 01/08/20 06:30 04/07/20 06:29 01/16/20 21:14 Lidocaine/ Epinephrine (Lidocaine 2%/ Epi 20ml) 2 ml ONCE PRN INJ catheter placement 01/16/20 15:45 01/18/20 15:44 Lisinopril (ZestriL) 10 mg DAILY ORAL 01/16/20 12:15 02/15/20 12:14 01/17/20 08:58 Loperamide HCl (Imodium) 2 mg Q8H PRN ORAL Diarrhea 01/14/20 15:15 02/13/20 15:14 01/16/20 00:22 Mirtazapine (Remeron) 7.5 mg QHS PRN ORAL insomnia 01/10/20 00:30 04/09/20 00:29 Ondansetron HCl (Zofran) 4 mg Q6H PRN IVP Nausea & Vomiting 01/12/20 16:30 02/11/20 16:29 01/16/20 17:49 Pantoprazole (Protonix) 40 mg DAILY ORAL 01/14/20 09:00 02/13/20 08:59 01/17/20 08:58 Tamsulosin HCl (Flomax) 0.4 mg BID ORAL 01/10/20 13:00 02/08/20 20:59 01/17/20 08:58 Laboratory Tests 01/16/20 11:32: POC Whole Blood Glucose 123H 01/16/20 20:48: POC Whole Blood Glucose [Pending] 01/17/20 05:01: POC Whole Blood Glucose 84 01/17/20 05:40: White Blood Count 11.4H, Red Blood Count 2.62L, Hemoglobin 8.3L, Hematocrit 25.4L, Mean Corpuscular Volume 97, Mean Corpuscular Hemoglobin 31.6H, Mean Corpuscular Hemoglobin Concent 32.6, Red Cell Distribution Width 14.5, Platelet Count 114L, Mean Platelet Volume 6.0L, Neutrophils (%) (Auto) , Lymphocytes (%) (Auto) , Monocytes (%) (Auto) , Eosinophils (%) (Auto) , Basophils (%) (Auto) , Differential Total Cells Counted 100, Neutrophils % (Manual) 88H, Lymphocytes % (Manual) 10L, Monocytes % (Manual) 2, Eosinophils % (Manual) 0, Basophils % (Manual) 0, Band Neutrophils 0, Platelet Estimate DecreasedL, Platelet Morphology Normal, Red Blood Cell Morphology Normal, Sodium Level 138, Potassium Level 3.5, Chloride Level 105, Carbon Dioxide Level 27, Anion Gap 6, Blood Urea Nitrogen 27H, Creatinine 4.0H, Estimat Glomerular Filtration Rate 15.2, Glucose Level 75, Uric Acid 3.6, Calcium Level 7.2L, Phosphorus Level 3.0, Magnesium Level 1.5L, Total Bilirubin 0.5, Aspartate Amino Transf (AST/SGOT) 18, Alanine Aminotransferase (ALT/SGPT) 12, Alkaline Phosphatase 106, C-Reactive Protein, Quantitative 8.9H, Pro-B-Type Natriuretic Peptide [id number], Total Protein 5.7L, Albumin 1.8L, Globulin 3.9, Albumin/Globulin Ratio 0.5L Height (Feet): 5 Height (Inches): 4.00 Weight (Pounds): 99 General Appearance: no apparent distress Objective No change Orlin Berrios MD Jan 17, 2020 11:17
[2020-01-17 12:00] VITALS: BP 138/62
[2020-01-17 16:00] VITALS: BP 118/58
--- NOTE | 2020-01-17 16:58 | NUR ---
*-*DISCHARGE PLANNING*-* PATIENT HAS BEEN ACCEPTED TO : [facility] P: [phone] ROOM# 44.B
--- NOTE | 2020-01-17 17:07 | NUR ---
*-*DISCHARGE PLANNED*-* PATIENT HAS BEEN ACCEPTED AND WITH: [facility] P: [phone] FOR NURSE TO NURSE REPORT ROOM# 44.B [facility] SET FOR 6:30PM S/W SUMIT [id number].
--- NOTE | 2020-01-17 18:27 | NUR ---
NURSE NOTES: patient refused to go to SNF. MD notified. MD wants the patient to go to SNF for a few days and then home otherwise patient to go AMA. patient agrees to sign AMA form and verbalized understanding of risks VS benefits of leaving AMA. He's family can pick him up between 8 and 9 PM tonight. Patient is stable and AOx4, no respiratory distress, no pain.
--- NOTE | 2020-01-17 19:29 | NUR ---
NURSE HAND-OFF: Important Events on Shift:patient wants to go AMA Patient Status: stable Diet: Renal Pending Orders: n/a Pending Results/Labs:n/a Pending MD notification:n/a Latest Vital Signs: Temperature 97.9 , Pulse 72 , B/P 118 /58 , Respiratory Rate 18 , O2 SAT 97 , Room Air, O2 Flow Rate 2.0 . Vital Sign Comment: stable Latest Mclean Fall Score: 85 Fall Risk: High Risk Safety Measures: Call light Within Reach, Bed Alarm Zone 2, Side Rails Side Rails x3, Bed position Low and Locked. Fall Precautions: Yellow Socks Yellow Gown Door Sign Patient Fall Education Report given to AMARILIS Rainey.
--- NOTE | 2020-01-17 19:30 | NUR ---
NURSE NOTES: Received patient awake in bed, waiting for his family for transport home. Per AM RN, to keep his dialysis access on leaving AMA.
--- NOTE | 2020-01-17 20:15 | NUR ---
NURSE NOTES: Instructed patient to get himself a schedule for hemodialysis. Printed case management rn's note may help.
--- NOTE | 2020-01-17 20:20 | NUR ---
NURSE NOTES: IV access and herndon catheter removed. Patient left AMA. 2 staff helped patient wheeled to their private vehicle.
--- NOTE | 2020-01-17 23:12 | Psychiatric Progress Note ---
Psychiatry Progress Note Psychiatry Progress Note Subjective 01/15/20 Neurological/Psychiatric: Reports: anxiety, depressed, emotional problems; Denies: no symptoms, headache, numbness, paresthesia, pre-existing deficit, seizure, tingling, tremors, weakness, other Allergies: Coded Allergies: No Known Allergies (Unverified , 04/21/18) Objective Data Height (Feet): 5 Height (Inches): 4.00 Weight (Pounds): 99 General Appearance: WD/WN, no apparent distress Appearance: no abnormalities noted Behavior Mannerisms: good eye contact Speech: clear Additional Comments: is alert and oriented times self, place, and situation. Mood is dysphoric. Affect is constricted, congruent with mood. Thought process is concrete. Thought content, no suicidal or homicidal ideation. Cognition is impaired Insight and judgment, fair. Assessment/Plan Napavine I: ASSESSMENT: Napavine I Depressive disorder. Napavine II Deferred. PLAN: 1. The patient has capacity to sign consent. 2. Provide the patient with reality orientation and supportive therapy. Status: stable Status Narrative ASSESSMENT: Napavine I Depressive disorder. Napavine II Deferred. PLAN: 1. The patient has capacity to sign consent. 2. Provide the patient with reality orientation and supportive therapy. Assessment/Plan: ASSESSMENT: Napavine I Depressive disorder. Napavine II Deferred. PLAN: 1. The patient has capacity to sign consent. 2. Provide the patient with reality orientation and supportive therapy. Harry Lucia MD Jan 17, 2020 23:12
--- NOTE | 2020-01-18 04:06 | Cardiology Report ---
APPROVED REPORT EKG Measurement Heart [id number] <Conclusion> Sinus bradycardia Low voltage QRS Septal infarct, age undetermined Abnormal ECG
--- NOTE | 2020-01-18 04:13 | Cardiology Report ---
APPROVED REPORT EXAM: Two-dimensional and M-mode echocardiogram with Doppler and color Doppler. INDICATION Bradycardia M-Mode DIMENSIONS IVSd0.7 (0.7-1.1cm)Left Atrium (MM)3.9 (1.6-4.0cm) LVDd5.3 (3.5-5.6cm)Aortic Root2.8 (2.0-3.7cm) PWd0.7 (0.7-1.1cm)Aortic Cusp Exc.2.1 (1.5-2.0cm) IVSs0.7 cmEPSS0.5 (>1.0cm) LVDs1.0 (2.5-4.0cm) PWs3.2 cm <Conclusion> Normal left ventricular chamber size, systolic function and wall motion. Left ventricular ejection fraction estimated to be 60 %. No evidence of left ventricular hypertrophy. No evidence of pericardial effusion. Left atrial size at upper limits of normal. Right cardiac chamber sizes are within normal limits. Focal aortic valve sclerosis with adequate cusp excursion. Thickened mitral valve leaflets with normal excursion. Mitral annulus and aortic root calcification. Normal pulmonic valve structure. Normal tricuspid valve structure. IVC dilated at 2.3 cm and slight collapsing with respiration suggestive of increased RA pressure. A color flow and spectral Doppler study was performed and revealed: Mild aortic insufficiency. Mild mitral regurgitation. Mitral inflow indicate normal left ventricular diastolic function. Moderate to severe tricuspid regurgitation. Tricuspid systolic velocities suggests peak right ventricular systolic pressure of 73 mmHg, consistent with severe pulmonary hypertension. Trace pulmonic regurgitation present.
--- NOTE | 2020-01-18 11:53 | NUR ---
[employer] (01/16) FAXED TO [facility] [phone] PH [phone]
== END 2020-01-17 20:20 | disposition home or self-care (01) | DRG 720 ==
LOC: EDBD 20:24 → EMR 20:30 → EDBEDREQ 21:42 → EDBEDREQSVC 22:36 → 2W 22:54 → EDBEDREQ 01-08 01:45 → 4E 01-11 17:13
PROC: 5A1D70Z Performance of Urinary Filtration, Intermittent, Less than 6 Hours Per Day (ICD-10-PCS; 2020-01-09)
PROC: 05HM33Z Insertion of Infusion Device into Right Internal Jugular Vein, Percutaneous Approach (ICD-10-PCS; 2020-01-09)
PROC: 0DD78ZX Extraction of Stomach, Pylorus, Via Natural or Artificial Opening Endoscopic, Diagnostic (ICD-10-PCS; 2020-01-11)
PROC: 0DJD8ZZ Inspection of Lower Intestinal Tract, Via Natural or Artificial Opening Endoscopic (ICD-10-PCS; 2020-01-11)
PROC: 0F798DZ Dilation of Common Bile Duct with Intraluminal Device, Via Natural or Artificial Opening Endoscopic (ICD-10-PCS; principal; 2020-01-12 12:17)
PROC: 0FC98ZZ Extirpation of Matter from Common Bile Duct, Via Natural or Artificial Opening Endoscopic (ICD-10-PCS; principal; 2020-01-12 12:17)
PROC: 05HM33Z Insertion of Infusion Device into Right Internal Jugular Vein, Percutaneous Approach (ICD-10-PCS; 2020-01-13)
PROC: 05HM33Z Insertion of Infusion Device into Right Internal Jugular Vein, Percutaneous Approach (ICD-10-PCS; 2020-01-16)
PROC: 0JH63XZ Insertion of Tunneled Vascular Access Device into Chest Subcutaneous Tissue and Fascia, Percutaneous Approach (ICD-10-PCS; 2020-01-16)
DX: A41.9 Sepsis, unspecified organism (principal); E43 Unspecified severe protein-calorie malnutrition; Z68.1 Body mass index [BMI] 19.9 or less, adult; K80.40 Calculus of bile duct with cholecystitis, unspecified, without obstruction; D69.6 Thrombocytopenia, unspecified; J18.9 Pneumonia, unspecified organism; I27.20 Pulmonary hypertension, unspecified; N17.9 Acute kidney failure, unspecified; D63.8 Anemia in other chronic diseases classified elsewhere; F32.9 Major depressive disorder, single episode, unspecified; E87.5 Hyperkalemia; E87.2 Acidosis; D64.9 Anemia, unspecified; R68.0 Hypothermia, not associated with low environmental temperature; I95.9 Hypotension, unspecified; E11.649 Type 2 diabetes mellitus with hypoglycemia without coma; Z79.4 Long term (current) use of insulin; R62.7 Adult failure to thrive; N39.0 Urinary tract infection, site not specified; R00.1 Bradycardia, unspecified; K85.10 Biliary acute pancreatitis without necrosis or infection; K74.60 Unspecified cirrhosis of liver; R18.8 Other ascites; E86.0 Dehydration; I12.0 Hypertensive chronic kidney disease with stage 5 chronic kidney disease or end stage renal disease; E11.22 Type 2 diabetes mellitus with diabetic chronic kidney disease; N18.6 End stage renal disease; Z99.2 Dependence on renal dialysis; T82.838A Hemorrhage due to vascular prosthetic devices, implants and grafts, initial encounter; K62.5 Hemorrhage of anus and rectum; K29.70 Gastritis, unspecified, without bleeding; K57.30 Diverticulosis of large intestine without perforation or abscess without bleeding; N13.5 Crossing vessel and stricture of ureter without hydronephrosis; K26.9 Duodenal ulcer, unspecified as acute or chronic, without hemorrhage or perforation; K64.4 Residual hemorrhoidal skin tags; K64.8 Other hemorrhoids
CPT/HCPCS: 36415; 36558; 36569; 70450; 71045; 74181; 74328; 76000; 76700; 76770; 76937; 80048; 80053; 80061; 81001; 82270; 82550; 82728; 82803; 82962; 83036; 83605; 83615; 83690; 83735; 83880; 84100; 84443; 84484; 84550; 85007; 85025; 85379; 85610; 85730; 86140; 86706; 86707; 86803; 86850; 86900; 86901; 86920; 87040; 87045; 87086; 87324; 93005; 93306; 93970; 94003; 94150; 96361; 96365; 96367; 96375; 96376; 99291; 99292; J1815; J2250; J2405; J3490; J7030; J8499; U0002

== ENCOUNTER 2020-01-21 02:00 | Inpatient (IN) | payer OTHER ==
[2020-01-21] VITALS (7 sets, daily range): BP systolic 124–139; BP diastolic 67–77
[~2020-01-21] VITALS: Ht 165.1 cm; Wt 49.9 kg
--- NOTE | 2020-01-21 02:28 | Emergency Room Report ---
History of Present Illness General Chief Complaint: Lower Extremity Injury Source: Patient, Medical Record, EMS Present Illness HPI This is a 64-year-old male with history of diabetes and high blood pressure. He also had recent diagnosis of renal failure on hemodialysis. Patient presents with a fall with bilateral lower extremity pain. Patient said that he was cleaning at home and fell from his wheelchair. He appeared to be slightly confused. He does not know the date or exact history of what how he fell. He was just here and discharged 3 days ago for the same thing. On the last admission, he was noted to be in acute renal failure and had to be placed on dialysis. Since he got discharged he has not been taking his medication or gone to dialysis. He does not know when he supposed to go to dialysis. He complained of increasing swelling to his lower extremity. Denies any fever chills. Denies any head injury. Nothing made it better. Nothing made it worse. Allergies: Coded Allergies: No Known Allergies (Unverified , 04/21/18) COVID-19 Screening Contact w/high risk pt: No Recent Travel to affected area: Yes Experienced COVID-19 symptoms?: No COVID-19 Testing performed DIRECTOR PATIENT ACCOUNTING: No Patient History Past Medical History: see triage record, old chart reviewed, DM, HTN, renal disease, dialysis Past Surgical History: other Pertinent Family History: none Social History: Denies: smoking Immunizations: other Reviewed Nursing Documentation: PMH: Agreed; PSxH: Agreed Nursing Documentation-PM Past Medical History: No History, Except For Hx Cardiac Problems: No Hx Hypertension: Yes Hx Diabetes: Yes Hx Cancer: No Hx Gastrointestinal Problems: No Hx Dialysis: Yes - shunt right chest Hx Neurological Problems: No Review of Systems Eye: Denies: eye pain, blurred vision ENT: Denies: ear pain, nose congestion, throat swelling Respiratory: Denies: cough, shortness of breath Cardiovascular: Denies: chest pain, palpitations Gastrointestinal: Denies: abdominal pain, diarrhea, nausea, vomiting Musculoskeletal: Reports: muscle pain; Denies: back pain, joint pain Skin: Denies: rash Neurological: Denies: headache, numbness Endocrine: Denies: increased thirst, increased urine Hematologic/Lymphatic: Denies: easy bruising All Other Systems: negative except mentioned in HPI Physical Exam Vital Signs Date Time Temp Pulse Resp B/P (MAP) Pulse Ox O2 Delivery O2 Flow Rate FiO2 01/21/20 02:05 98.6 70 16 136/77 (96) 100 Room Air Vitals normal Sp02 EP Interpretation: reviewed, normal General Appearance: no apparent distress, alert, cachetic, Chronically Ill Head: normocephalic, atraumatic Eyes: bilateral eye PERRL, bilateral eye EOMI ENT: hearing grossly normal, normal pharynx Neck: full range of motion, supple, no meningismus Respiratory: chest non-tender, lungs clear, normal breath sounds Cardiovascular #1: regular rate, rhythm, no murmur Gastrointestinal: normal bowel sounds, non tender, no mass, no organomegaly, no bruit, non-distended Musculoskeletal: back normal, normal range of motion, swelling - 4+ pitting edema. 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 Patient require my urgent intervention to attenuate the risks of metabolic collapse which may lead to cardiovascular collapse and . Critical care time is 35 minutes excluding any reportable procedure. Critical care time included evaluation, multiple reevaluation, looking at old charts, interpreting laboratory and diagnostic data, discussing case with patient and family and consultants, and charting. Medical Decision Making Diagnostic Impression: Primary Impression: Hyperkalemia Additional Impressions: Uremic encephalopathy Failure to thrive Qualified Codes: R62.7 - Adult failure to thrive Anemia Qualified Codes: N18.6 - End stage renal disease; D63.1 - Anemia in chronic kidney disease; Z99.2 - Dependence on renal dialysis ER Course Patient presents with a fall. I see no injury. He appears to be slightly confused. He has not been to dialysis since he was admitted and discharged from this hospital. I suspect that he has encephalopathy from uremia. He does have hyperkalemia without EKG changes. Medication given to treat that. Also given Lasix for slightly fluid overloaded. His hemoglobin is stable at 8.3. He lives by himself. No family member. I question whether or not he can take care of himself. He may benefit from group home placement. I contacted Dr. Allan for admission. EKG Diagnostic Results Troponin ordered: Yes Rate: normal Rhythm: NSR ST Segments: no acute changes Rhythm Strip Diag. Results EP Interpretation: yes Rate: 74 Rhythm: NSR, no PVC's, no ectopy Chest X-Ray Diagnostic Results Chest X-Ray Diagnostic Results : Chest X-Ray Ordered: Yes # of Views/Limited/Complete: 1 View Indication: Other EP Interpretation: Yes Interpretation: no consolidation, no effusion, no pneumothorax, other - mild vasc congestion Impression: Other - vasc congestion Electronically Signed by: Demetri Douglass MD Last Vital Signs Date Time Temp Pulse Resp B/P (MAP) Pulse Ox O2 Delivery O2 Flow Rate FiO2 01/21/20 02:05 98.6 70 16 136/77 (96) 100 Room Air Status: improved Disposition: PLACE IN OBSERVATION Condition: Stable Scripts Unable to Obtain Active Prescriptions or Reported Meds Demetri Douglass MD Jan 21, 2020 02:28
[2020-01-21 03:04] LABS: EOSINOPHILS % (AUTO) 0.7 % (0.0-3.0); HEMATOCRIT 25.2 % (42.0-52.0); HEMOGLOBIN 8.3 G/DL (14.2-18.0); LYMPHOCYTES % (AUTO) 11.7 % (20.0-45.0); MEAN CORPUSCULAR VOLUME 97 FL (80-99); MONOCYTES % (AUTO) 5.3 % (1.0-10.0); NEUTROPHILS % (AUTO) 81.4 % (45.0-75.0); PLATELET COUNT 163 K/UL (150-450); RED CELL DISTRIBUTION WIDTH 16.2 % (11.6-14.8); WHITE BLOOD COUNT 9.7 K/UL (4.8-10.8)
--- NOTE | 2020-01-21 03:17 | Diagnostic Imaging Report ---
EXAM: XR Chest, 1 View CLINICAL HISTORY: AMS TECHNIQUE: Frontal view of the chest. COMPARISON: 01/08/2020. FINDINGS: Lungs: Minimal patchy airspace disease is noted in the mid lower lung zones bilaterally raising concern for possible atypical pneumonias. Pleural space: Unremarkable. No pneumothorax. Heart: Unremarkable. No cardiomegaly. Mediastinum: Unremarkable. Bones/joints: Osteopenia. Orthopedic hardware proximal right humerus. Tubes, lines and devices: Right subclavian catheter is noted in place with its tip at the right atrium. IMPRESSION: 1. Patchy reticular airspace disease most notably in the mid lower lung zones raising concern for possible atypical pneumonias. 2. Osteopenia. 3. Right septated catheter is noted in place with its tip at the right atrium.
[2020-01-21 03:29] LABS: CALCIUM 8.3 MG/DL (8.5-10.1); CREATININE 5.4 MG/DL (0.55-1.30)
[2020-01-21] MEDS ORDERED: Insulin Human Regular 100units/ml 3ml IV ONE ×2 (03:45→04:00)
[2020-01-21] MEDS ORDERED: Calcium Gluconate 1gm/10ml vial IVP ONE (03:45)
[2020-01-21 05:26] LABS: APPEARANCE,URINE SLIGHTLY CLOUDY; BILIRUBIN, URINE NEGATIVE (NEGATIVE); COLOR,URINE PALE YELLOW; GLUCOSE, URINE (UA) NEGATIVE (NEGATIVE); KETONES,URINE NEGATIVE (NEGATIVE); LEUKOCYTE ESTERASE ,URINE 3+ (NEGATIVE); NITRITE,URINE NEGATIVE (NEGATIVE); PH,URINE 5 (4.5-8.0); PROTEIN,URINE 3+ (NEGATIVE); UROBILINOGEN,URINE NORMAL MG/DL (0.0-1.0)
--- NOTE | 2020-01-21 12:57 | History and Physical ---
History of Present Illness General Date patient seen: Jan 21, 2020 Reason for Hospitalization: Lower Extremity Injury Present Illness HPI 64 years old hm readmitted after signing ama . pt went home byhimself . pt stated has pain hernan leg and fall and unable to walk. pt has been mild -moderate sob since yesterday. no fever , no cp Allergies: Coded Allergies: No Known Allergies (Unverified , 04/21/18) COVID-19 Screening Contact w/high risk pt: No Recent Travel to affected area: Yes Experienced COVID-19 symptoms?: No Coronavirus symptoms experienc: Shortness of Breath, Diarrhea Medication History Unable to Obtain Active Prescriptions or Reported Meds Patient History Healthcare decision maker Resuscitation status Advanced Directive on File Review of Systems Constitutional: Reports: weakness ENT: Reports: no symptoms Respiratory: Reports: shortness of breath Cardiovascular: Reports: no symptoms Gastrointestinal: Reports: diarrhea Genitourinary: Reports: no symptoms Musculoskeletal: Reports: joint swelling, muscle pain Skin: Reports: no symptoms Psychiatric: Reports: no symptoms Neurological: Reports: tingling Endocrine: Reports: no symptoms Hematologic/Lymphatic: Reports: no symptoms Physical Exam General Appearance: alert Lines, tubes and drains: peripheral HEENT: atraumatic, anicteric Neck: supple Respiratory/Chest: rhonchi - bilaterally, rhonchi - left Cardiovascular/Chest: regular rhythm Abdomen: non tender, soft Genitourinary/Rectal: normal genital exam Extremities: non-tender Skin Exam: warm/dry Neurologic: alert Musculoskeletal: atrophy Last 24 Hour Vital Signs Date Time Temp Pulse Resp B/P (MAP) Pulse Ox O2 Delivery O2 Flow Rate FiO2 01/21/20 08:00 96.6 95 18 133/77 (95) 100 01/21/20 06:25 98.6 77 16 123/75 100 Room Air 01/21/20 06:15 98.6 77 16 127/76 100 Room Air 01/21/20 04:10 98.6 77 16 125/72 100 Room Air 01/21/20 02:15 98.6 16 136/77 100 Room Air 01/21/20 02:05 98.6 70 16 136/77 (96) 100 Room Air Intake and Output 01/20/20 01/21/20 19:00 07:00 Intake Total 150 ml Output Total 100 ml Balance 50 ml Intake Oral 150 ml Output Urine Total 100 ml # Voids 1 Laboratory Tests Test 01/21/20 02:23 01/21/20 04:20 01/21/20 07:24 White Blood Count 9.7 K/UL (4.8-10.8) Red Blood Count 2.60 M/UL (4.70-6.10) L Hemoglobin 8.3 G/DL (14.2-18.0) L Hematocrit 25.2 % (42.0-52.0) L Mean Corpuscular Volume 97 FL (80-99) Mean Corpuscular Hemoglobin 32.0 PG (27.0-31.0) H Mean Corpuscular Hemoglobin Concent 33.1 G/DL (32.0-36.0) Red Cell Distribution Width 16.2 % (11.6-14.8) H Platelet Count 163 K/UL (150-450) Mean Platelet Volume 5.7 FL (6.5-10.1) L Neutrophils (%) (Auto) 81.4 % (45.0-75.0) H Lymphocytes (%) (Auto) 11.7 % (20.0-45.0) L Monocytes (%) (Auto) 5.3 % (1.0-10.0) Eosinophils (%) (Auto) 0.7 % (0.0-3.0) Basophils (%) (Auto) 1.0 % (0.0-2.0) Sodium Level 133 MMOL/L (136-145) L Potassium Level 6.0 MMOL/L (3.5-5.1) *H Chloride Level 104 MMOL/L (98-107) Carbon Dioxide Level 19 MMOL/L (21-32) L Anion Gap 11 mmol/L (5-15) Blood Urea Nitrogen 49 mg/dL (7-18) H Creatinine 5.4 MG/DL (0.55-1.30) H Estimat Glomerular Filtration Rate 10.7 mL/min (>60) Glucose Level 61 MG/DL (74-106) L Calcium Level 8.3 MG/DL (8.5-10.1) L Troponin I 0.005 ng/mL (0.000-0.056) Pro-B-Type Natriuretic Peptide 00241 pg/mL (0-125) H Urine Color Pale yellow Urine Appearance Slightly cloudy Urine pH 5 (4.5-8.0) Urine Specific Hankinson 1.015 (1.005-1.035) Urine Protein 3+ (NEGATIVE) H Urine Glucose (UA) Negative (NEGATIVE) Urine Ketones Negative (NEGATIVE) Urine Blood 5+ (NEGATIVE) H Urine Nitrite Negative (NEGATIVE) Urine Bilirubin Negative (NEGATIVE) Urine Urobilinogen Normal MG/DL (0.0-1.0) Urine Leukocyte Esterase 3+ (NEGATIVE) H Urine RBC 20-30 /HPF (0 - 0) H Urine WBC 2-4 /HPF (0 - 0) Urine Squamous Epithelial Cells Occasional /LPF Urine Bacteria Moderate /HPF (NONE) H POC Whole Blood Glucose 71 MG/DL (74-106) L Height (Feet): 5 Height (Inches): 5.00 Weight (Pounds): 110 Medications Current Medications Medications (Trade) Dose Ordered Sig/Jamal Route PRN Reason Start Time Stop Time Status Last Admin Dose Admin Acetaminophen (Tylenol) 650 mg Q6H PRN ORAL For Pain 3-6 / Fever >100.5 01/21/20 12:00 02/20/20 11:59 Al Hydroxide/Mg Hydroxide (Mylanta) 30 ml Q6H PRN ORAL GI upset 01/21/20 12:00 02/20/20 11:59 Amlodipine Besylate (Norvasc) 2.5 mg DAILY ORAL 01/22/20 09:00 02/21/20 08:59 Dextrose (Dextrose 50%) 25 ml Q30M PRN IV Hypoglycemia 01/21/20 12:00 04/20/20 11:59 Dextrose (Dextrose 50%) 50 ml Q30M PRN IV Hypoglycemia 01/21/20 12:00 04/20/20 11:59 Insulin Aspart (NovoLOG) BEFORE MEALS AND HS SUBQ 01/21/20 16:30 04/20/20 16:29 Lisinopril (ZestriL) 10 mg DAILY ORAL 01/22/20 09:00 02/21/20 08:59 Loperamide HCl (Imodium) 2 mg Q8H PRN ORAL Diarrhea 01/21/20 12:00 02/20/20 11:59 Ondansetron HCl (Zofran) 4 mg Q6H PRN IVP Nausea & Vomiting 01/21/20 12:00 02/20/20 11:59 Pantoprazole (Protonix) 40 mg DAILY ORAL 01/22/20 09:00 02/21/20 08:59 Sodium Chloride 1,000 ml @ 75 mls/hr [id number] IV 01/21/20 12:00 02/20/20 11:59 Sodium Citrate (Bicitra) 30 ml EVERY 6 HOURS ORAL 01/21/20 18:00 02/20/20 17:59 Tamsulosin HCl (Flomax) 0.4 mg BID ORAL 01/21/20 18:00 02/20/20 17:59 Objective Narrative 1 sob 2 diarrhea 3 hernan leg pain 4 weakness 5 esrd on hd 6 anemia 7 htn 8 dm 2 admit to [facility] last time pt refused to go snf this time agreed stool for c diff hd today emma , gage pt/ot Kamron Allan MD Jan 21, 2020 12:57
[2020-01-21 13:42] LABS: BASOPHILS % (AUTO) 0.9 % (0.0-2.0); EOSINOPHILS % (AUTO) 0.6 % (0.0-3.0); HEMATOCRIT 25.6 % (42.0-52.0); HEMOGLOBIN 8.4 G/DL (14.2-18.0); LYMPHOCYTES % (AUTO) 10.5 % (20.0-45.0); MEAN CORPUSCULAR VOLUME 98 FL (80-99); PLATELET COUNT 173 K/UL (150-450); RED BLOOD COUNT 2.63 M/UL (4.70-6.10); RED CELL DISTRIBUTION WIDTH 15.8 % (11.6-14.8); WHITE BLOOD COUNT 10.2 K/UL (4.8-10.8)
--- NOTE | 2020-01-21 14:45 | Consultation ---
DATE OF CONSULTATION: 01/21/2020 PULMONARY CONSULTATION CONSULTING PHYSICIAN: Gonzalo Condon M.D. HISTORY OF PRESENT ILLNESS: This is a 64-year-old male with history of hypertension, diabetes mellitus, and a new diagnosis of ESRD, on dialysis. He was discharged from the hospital several days ago and has been set up with outpatient dialysis after having had a PermCath placed. The patient states that he does not know where he is supposed to go and has not gone for the last three days. The patient is wheelchair-bound, apparently fell from his wheelchair as well. MEDICATIONS: His current list of medications includes insulin sliding scale and Lasix. PAST MEDICAL HISTORY: ESRD, on dialysis, hypertension, diabetes mellitus. REVIEW OF SYSTEMS: Unreliable. PHYSICAL EXAMINATION: GENERAL: A 64-year-old male. VITAL SIGNS: O2 sat 100% on room air, blood pressure 130/70, respirations are 18, heart rate 95. He is afebrile. HEENT: Unremarkable. LUNGS: Decreased breath sounds bilaterally. HEART: Normal heart sounds. ABDOMEN: Soft. EXTREMITIES: There is no edema. DIAGNOSTIC AND LABORATORY DATA: X-ray chest shows clear lung berry bilaterally. Lab testing shows hemoglobin 8.3, potassium 6, creatinine of 5.4. ProBNP 10,000. IMPRESSION: 1. Mild pulmonary edema. 2. Hyperkalemia. 3. ESRD, on dialysis. 4. Hypertension. 5. Encephalopathy. DISCUSSION: The patient is confused and is not able to care for himself. He likely will need to be placed in a facility and be cared for to dialysis. We will provide oxygen, needs dialysis. We will follow. Gonzalo Condon M.D. DR: ADAIR JOB#: [id number] CC:
[2020-01-21] MEDS: NovoLOG Insulin Flexpen SUBQ SCH ×2 (16:30→21:00)
--- NOTE | 2020-01-21 16:58 | Consultation ---
Consult Note Consult Note I am asked to evaluate the patient at the request of Dr. Allan for renal failure Patient known to me from his previous admission. He was scheduled to undergo dialysis as an outpatient. Patient signed AMA prior to arrangements. This is a 64-year-old male with history of diabetes and high blood pressure. He also had recent diagnosis of renal failure on hemodialysis. Patient presents with a fall with bilateral lower extremity pain. Patient said that he was cleaning at home and fell from his wheelchair. He appeared to be slightly confused. He does not know the date or exact history of what how he fell. He was just here and discharged 3 days ago for the same thing. On the last admission, he was noted to be in acute renal failure and had to be placed on dialysis. Since he got discharged he has not been taking his medication or gone to dialysis. He does not know when he supposed to go to dialysis. He complained of increasing swelling to his lower extremity. Denies any fever chills. Denies any head injury. Nothing made it better. Nothing made it worse. Allergies: No Known Allergies (Unverified , 04/21/18) Contact w/high risk pt: No Recent Travel to affected area: Yes Experienced COVID-19 symptoms?: No COVID-19 Testing performed BASIN TENDER: No Past Medical History: see triage record, old chart reviewed, DM, HTN, renal disease, dialysis Past Medical History: No History, Except For Hx Hypertension: Yes Hx Diabetes: Yes Hx Dialysis: Yes - shunt right chest PHYSICAL EXAMINATION: GENERAL: A 64-year-old male. VITAL SIGNS: O2 sat 100% on room air, blood pressure 130/70, respirations are 18, heart rate 95. He is afebrile. HEENT: Unremarkable. LUNGS: Decreased breath sounds bilaterally. HEART: Normal heart sounds. ABDOMEN: Soft. EXTREMITIES: There is no edema. DIAGNOSTIC AND LABORATORY DATA: X-ray chest shows clear lung berry bilaterally. Lab testing shows hemoglobin 8.3, potassium 6, creatinine of 5.4. ProBNP 10,000. . Assessment/Plan 1) JONA (acute kidney injury) (2) Hyperkalemia (3) Anemia (4) Metabolic acidosis (5) Ureter obstruction (6) Failure to thrive, BMI 18 Kayexalate Renal diet Hemodialysis in a.m. Keep the blood pressure in check Per orders Orlin Berrios MD Jan 21, 2020 16:58
[2020-01-21] MEDS ORDERED: Sodium Polystyrene Sulfonate 15gm Powder ORAL SCH (17:00)
[2020-01-21] MEDS: Tamsulosin 0.4mg cap ORAL SCH (17:35)
[2020-01-21] MEDS: Sodium Citrate 30ml ORAL SCH (17:35)
[2020-01-22] VITALS (7 sets, daily range): BP systolic 113–133; BP diastolic 50–66
[2020-01-22] MEDS: Sodium Citrate 30ml ORAL SCH ×2 (00:11→06:19)
[2020-01-22] MEDS: NovoLOG Insulin Flexpen SUBQ SCH (06:30)
[2020-01-22 06:45] LABS: HEMOGLOBIN 7.9 G/DL (14.2-18.0); MEAN CORPUSCULAR VOLUME 98 FL (80-99); PLATELET COUNT 168 K/UL (150-450); RED BLOOD COUNT 2.55 M/UL (4.70-6.10); RED CELL DISTRIBUTION WIDTH 16.2 % (11.6-14.8); WHITE BLOOD COUNT 10.1 K/UL (4.8-10.8)
[2020-01-22 07:17] LABS: ALANINE AMINOTRANSFERASE < 6 U/L (12-78); ALBUMIN/GLOBULIN RATIO 0.5 (1.0-2.7); ALKALINE PHOSPHATASE 103 U/L (46-116); ANION GAP 8 mmol/L (5-15); ASPARTATE AMINO TRANSFERASE 19 U/L (15-37); BILIRUBIN,TOTAL 0.5 MG/DL (0.2-1.0); BLOOD UREA NITROGEN 53 mg/dL (7-18); CALCIUM 7.9 MG/DL (8.5-10.1); CARBON DIOXIDE 20 MMOL/L (21-32); CHLORIDE 106 MMOL/L (98-107); CHOLESTEROL 80 MG/DL (< 200); CREATININE 5.7 MG/DL (0.55-1.30); FERRITIN 900 NG/ML (8-388); GAMMA GLUTAMYL TRANSPEPTIDASE 48 U/L (5-85); HDL CHOLESTEROL 41 MG/DL (40-60); POTASSIUM 5.9 MMOL/L (3.5-5.1); SODIUM 134 MMOL/L (136-145); TRIGLYCERIDES 30 MG/DL (30-150)
[2020-01-22 07:50] LABS: % IRON SATURATION 42 % (15-50); IRON 41 ug/dL (50-175); TOTAL IRON BINDING CAPACITY 98 ug/dL (250-450)
[2020-01-22 07:53] LABS: AMMONIA 19 umol/L (11-32)
[2020-01-22] MEDS ORDERED: Sodium Polystyrene Sulfonate 15gm Powder ORAL SCH (08:00)
[2020-01-22] MEDS: Tamsulosin 0.4mg cap ORAL SCH ×2 (08:42→17:25)
[2020-01-22] MEDS: Lisinopril 10mg tab ORAL SCH (09:00)
--- NOTE | 2020-01-22 11:01 | Pulmonology Progress Note ---
Subjective ROS Limited/Unobtainable: No Interval Events: None new Constitutional: Reports: no symptoms HEENT: Repors: no symptoms Respiratory: Reports: no symptoms Cardiovascular: Reports: no symptoms Gastrointestinal/Abdominal: Reports: no symptoms Allergies: Coded Allergies: No Known Allergies (Unverified , 04/21/18) Objective Last 24 Hour Vital Signs Date Time Temp Pulse Resp B/P (MAP) Pulse Ox O2 Delivery O2 Flow Rate FiO2 01/22/20 08:00 96.6 88 20 132/66 (88) 99 01/22/20 08:00 73 01/22/20 04:00 73 01/22/20 04:00 98.1 69 20 130/58 (82) 99 01/22/20 00:00 77 01/22/20 00:00 99.3 81 20 128/59 (82) 100 01/21/20 21:00 Room Air 01/21/20 20:00 86 01/21/20 20:00 99.0 84 18 135/70 (91) 99 01/21/20 16:00 86 01/21/20 16:00 98.8 86 18 139/73 (95) 98 01/21/20 12:00 80 01/21/20 12:00 96.2 86 18 124/67 (86) 100 Intake and Output 01/21/20 01/22/20 18:59 06:59 Intake Total 540 ml 440 ml Balance 540 ml 440 ml Intake Oral 540 ml 440 ml # Voids 2 2 # Bowel Movements 9 3 General Appearance: no acute distress HEENT: normocephalic Respiratory: chest wall non-tender, lungs clear Cardiovascular: normal peripheral pulses, normal rate Abdomen: normal bowel sounds, soft, non tender Extremities: no cyanosis Microbiology Date/Time Source Procedure Growth Status 01/21/20 10:45 Stool Clostridium difficile Toxin Assay - Final Complete 01/21/20 04:20 Urine,Clean Catch Urine Culture - Preliminary Strep Species, Alpha Hemolytic Resulted 01/21/20 02:23 Arm Right Blood Culture - Preliminary Resulted 01/21/20 02:13 Arm Left Blood Culture - Preliminary Resulted Laboratory Tests 01/21/20 12:45: White Blood Count 10.2, Red Blood Count 2.63L, Hemoglobin 8.4L, Hematocrit 25.6L , Mean Corpuscular Volume 98, Mean Corpuscular Hemoglobin 32.0H, Mean Corpuscular Hemoglobin Concent 32.8, Red Cell Distribution Width 15.8H, Platelet Count 173, Mean Platelet Volume 5.4L, Neutrophils (%) (Auto) 83.0H, Lymphocytes (%) (Auto) 10.5L, Monocytes (%) (Auto) 5.0, Eosinophils (%) (Auto) 0.6, Basophils (%) (Auto) 0.9, Magnesium Level 2.0 01/21/20 16:37: POC Whole Blood Glucose 59L 01/21/20 17:03: POC Whole Blood Glucose 98 01/21/20 20:48: POC Whole Blood Glucose 58L 01/21/20 21:11: POC Whole Blood Glucose 94 01/22/20 05:05: White Blood Count 10.1, Red Blood Count 2.55L, Hemoglobin 7.9L, Hematocrit 25.0L , Mean Corpuscular Volume 98, Mean Corpuscular Hemoglobin 31.2H, Mean Corpuscular Hemoglobin Concent 31.8L, Red Cell Distribution Width 16.2H, Platelet Count 168, Mean Platelet Volume 5.7L, Neutrophils (%) (Auto) , Lymphocytes (%) (Auto) , Monocytes (%) (Auto) , Eosinophils (%) (Auto) , Basophils (%) (Auto) , Differential Total Cells Counted 100, Neutrophils % (Manual) 85H, Lymphocytes % (Manual) 9L, Monocytes % (Manual) 6, Eosinophils % (Manual) 0, Basophils % (Manual) 0, Band Neutrophils 0, Platelet Estimate Adequate, Platelet Morphology Normal, Anisocytosis 1+, Sodium Level 134L, Potassium Level 5.9H, Chloride Level 106, Carbon Dioxide Level 20L, Anion Gap 8, Blood Urea Nitrogen 53H, Creatinine 5.7H, Estimat Glomerular Filtration Rate 10.1, Glucose Level 57L, Hemoglobin A1c 5.4, Uric Acid 7.1, Calcium Level 7.9L, Phosphorus Level 5.0H, Magnesium Level 1.9, Iron Level 41L, Total Iron Binding Capacity 98L, Percent Iron Saturation 42, Unsaturated Iron Binding 57L, Ferritin 900H, Total Bilirubin 0.5, Gamma Glutamyl Transpeptidase 48, Aspartate Amino Transf (AST/SGOT) 19, Alanine Aminotransferase (ALT/SGPT) < 6L, Alkaline Phosphatase 103, Ammonia 19, C-Reactive Protein, Quantitative 12.8H, Pro-B-Type Natriuretic Peptide 59318P, Total Protein 5.9L, Albumin 2.0L, Globulin 3.9, Albumin/Globulin Ratio 0.5L, Triglycerides Level 30, Cholesterol Level 80, LDL Cholesterol 30, HDL Cholesterol 41, Cholesterol/HDL Ratio 2.0L, Vitamin B12 Level 595, Folate 4.0L, Thyroid Stimulating Hormone (TSH) 5.134H 01/22/20 06:00: POC Whole Blood Glucose [Pending] 01/22/20 06:20: POC Whole Blood Glucose [Pending] 01/22/20 06:40: POC Whole Blood Glucose 88 01/22/20 09:59: POC Whole Blood Glucose 121H Current Medications Medications (Trade) Dose Ordered Sig/Jamal Route PRN Reason Start Time Stop Time Status Last Admin Dose Admin Acetaminophen (Tylenol) 650 mg Q6H PRN ORAL For Pain 3-6 / Fever >100.5 01/21/20 12:00 02/20/20 11:59 01/22/20 08:43 Amlodipine Besylate (Norvasc) 2.5 mg DAILY ORAL 01/22/20 09:00 02/21/20 08:59 Dextrose 1,000 ml @ 50 mls/hr Q20H IV 01/22/20 07:30 02/21/20 07:29 01/22/20 07:59 Dextrose (Dextrose 50%) 25 ml Q30M PRN IV Hypoglycemia 01/21/20 12:00 04/20/20 11:59 Dextrose (Dextrose 50%) 50 ml Q30M PRN IV Hypoglycemia 01/21/20 12:00 04/20/20 11:59 Epoetin Andre (Epoetin Andre(ESRD on dialysis)) 10,000 unit THU-THU-THU SUBQ 01/23/20 21:00 04/22/20 20:59 Folic Acid (Folate) 5 mg DAILY ORAL 01/22/20 11:00 02/21/20 10:59 Lisinopril (ZestriL) 10 mg DAILY ORAL 01/22/20 09:00 02/21/20 08:59 Nitrofurantoin (Macrobid) 100 mg EVERY 12 HOURS ORAL 01/22/20 09:00 02/01/20 08:59 UNV Ondansetron HCl (Zofran) 4 mg Q6H PRN IVP Nausea & Vomiting 01/21/20 12:00 02/20/20 11:59 Pantoprazole (Protonix) 40 mg DAILY ORAL 01/22/20 09:00 02/21/20 08:59 01/22/20 08:42 Sodium Citrate (Bicitra) 30 ml EVERY 6 HOURS ORAL 01/21/20 18:00 02/20/20 17:59 01/22/20 06:19 Tamsulosin HCl (Flomax) 0.4 mg BID ORAL 01/21/20 18:00 02/20/20 17:59 01/22/20 08:42 Assessment/Plan Assessment/Plan IMPRESSION: 1. Mild pulmonary edema. 2. Hyperkalemia. 3. ESRD, on dialysis. 4. Hypertension. 5. Encephalopathy. DISCUSSION: The patient is confused and is not able to care for himself. He likely will need to be placed in a facility and be cared for dialysis. Continue oxygen. I will follow. Gonzalo Condon M.D. Gonzalo Condon MD Jan 22, 2020 11:01
--- NOTE | 2020-01-22 13:58 | General Progress Note ---
Subjective Allergies: Coded Allergies: No Known Allergies (Unverified , 04/21/18) Subjective doing ok weakness Objective Last 24 Hour Vital Signs Date Time Temp Pulse Resp B/P (MAP) Pulse Ox O2 Delivery O2 Flow Rate FiO2 01/22/20 12:00 74 01/22/20 12:00 96.7 81 20 125/60 (81) 99 01/22/20 09:00 73 132/66 01/22/20 09:00 132/66 01/22/20 08:00 96.6 88 20 132/66 (88) 99 01/22/20 08:00 73 01/22/20 04:00 73 01/22/20 04:00 98.1 69 20 130/58 (82) 99 01/22/20 00:00 77 01/22/20 00:00 99.3 81 20 128/59 (82) 100 01/21/20 21:00 Room Air 01/21/20 20:00 86 01/21/20 20:00 99.0 84 18 135/70 (91) 99 01/21/20 16:00 86 01/21/20 16:00 98.8 86 18 139/73 (95) 98 Intake and Output 01/21/20 01/22/20 19:00 07:00 Intake Total 540 ml 440 ml Balance 540 ml 440 ml Intake Oral 540 ml 440 ml # Voids 2 2 # Bowel Movements 9 3 Laboratory Tests 01/21/20 16:37: POC Whole Blood Glucose 59L 01/21/20 17:03: POC Whole Blood Glucose 98 01/21/20 20:48: POC Whole Blood Glucose 58L 01/21/20 21:11: POC Whole Blood Glucose 94 01/22/20 05:05: White Blood Count 10.1, Red Blood Count 2.55L, Hemoglobin 7.9L, Hematocrit 25.0L , Mean Corpuscular Volume 98, Mean Corpuscular Hemoglobin 31.2H, Mean Corpuscular Hemoglobin Concent 31.8L, Red Cell Distribution Width 16.2H, Platelet Count 168, Mean Platelet Volume 5.7L, Neutrophils (%) (Auto) , Lymp hocytes (%) (Auto) , Monocytes (%) (Auto) , Eosinophils (%) (Auto) , Basophils (%) (Auto) , Differential Total Cells Counted 100, Neutrophils % (Manual) 85H, Lymphocytes % (Manual) 9L, Monocytes % (Manual) 6, Eosinophils % (Manual) 0, Basophils % (Manual) 0, Band Neutrophils 0, Platelet Estimate Adequate, Platelet Morphology Normal, Anisocytosis 1+, Sodium Level 134L, Potassium Level 5.9H, Chloride Level 106, Carbon Dioxide Level 20L, Anion Gap 8, Blood Urea Nitrogen 53H, Creatinine 5.7H, Estimat Glomerular Filtration Rate 10.1, Glucose Level 57L , Hemoglobin A1c 5.4, Uric Acid 7.1, Calcium Level 7.9L, Phosphorus Level 5.0H, Magnesium Level 1.9, Iron Level 41L, Total Iron Binding Capacity 98L, Percent Iron Saturation 42, Unsaturated Iron Binding 57L, Ferritin 900H, Total Bilirubin 0.5, Gamma Glutamyl Transpeptidase 48, Aspartate Amino Transf (AST/SGOT) 19, Alanine Aminotransferase (ALT/SGPT) < 6L, Alkaline Phosphatase 103, Ammonia 19, C-Reactive Protein, Quantitative 12.8H, Pro-B-Type Natriuretic Peptide [id number], Total Protein 5.9L, Albumin 2.0L, Globulin 3.9, Albumin/Globulin Ratio 0.5L, Triglycerides Level 30, Cholesterol Level 80, LDL Cholesterol 30, HDL Cholesterol 41, Cholesterol/HDL Ratio 2.0L, Vitamin B12 Level 595, Folate 4.0L, Thyroid Stimulating Hormone (TSH) 5.134H 01/22/20 06:00: POC Whole Blood Glucose [Pending] 01/22/20 06:20: POC Whole Blood Glucose [Pending] 01/22/20 06:40: POC Whole Blood Glucose 88 01/22/20 09:59: POC Whole Blood Glucose 121H 01/22/20 11:29: POC Whole Blood Glucose 108H Height (Feet): 5 Height (Inches): 5.00 Weight (Pounds): 110 General Appearance: alert EENT: PERRL/EOMI Neck: supple Cardiovascular: normal rate Respiratory/Chest: lungs clear Abdomen: non tender, soft Extremities: non-tender Assessment/Plan Assessment/Plan: 1 sepsis 2 diarrea 3 dm 2 4 esrdon hd 5 htn 6 weakness 7 bactremia id consult dc macrobid dc plan to [facility] tomorrow Kamron Allan MD Jan 22, 2020 13:58
[2020-01-23] VITALS: BP 127/58
[2020-01-23 04:00] VITALS: BP 130/60
[2020-01-23 06:18] LABS: HEMATOCRIT 23.9 % (42.0-52.0); HEMOGLOBIN 7.6 G/DL (14.2-18.0); MEAN CORPUSCULAR VOLUME 99 FL (80-99); PLATELET COUNT 138 K/UL (150-450); RED BLOOD COUNT 2.42 M/UL (4.70-6.10); WHITE BLOOD COUNT 7.5 K/UL (4.8-10.8)
[2020-01-23 06:39] LABS: ALANINE AMINOTRANSFERASE < 6 U/L (12-78); ALBUMIN 1.8 G/DL (3.4-5.0); ALBUMIN/GLOBULIN RATIO 0.5 (1.0-2.7); ALKALINE PHOSPHATASE 117 U/L (46-116); ANION GAP 7 mmol/L (5-15); ASPARTATE AMINO TRANSFERASE 16 U/L (15-37); BILIRUBIN,TOTAL 0.4 MG/DL (0.2-1.0); BLOOD UREA NITROGEN 30 mg/dL (7-18); CALCIUM 7.5 MG/DL (8.5-10.1); CARBON DIOXIDE 25 MMOL/L (21-32); CHLORIDE 107 MMOL/L (98-107); CREATININE 3.8 MG/DL (0.55-1.30); PHOSPHORUS 2.9 MG/DL (2.5-4.9); POTASSIUM 3.4 MMOL/L (3.5-5.1); SODIUM 138 MMOL/L (136-145)
[2020-01-23 08:00] VITALS: BP 142/75
[2020-01-23] MEDS: Tamsulosin 0.4mg cap ORAL SCH ×2 (09:22→17:22)
[2020-01-23] MEDS: Lisinopril 10mg tab ORAL SCH (09:22)
--- NOTE | 2020-01-23 10:08 | Pulmonology Progress Note ---
Subjective ROS Limited/Unobtainable: No Interval Events: None new Constitutional: Reports: no symptoms HEENT: Repors: no symptoms Respiratory: Reports: no symptoms Cardiovascular: Reports: no symptoms Gastrointestinal/Abdominal: Reports: no symptoms Allergies: Coded Allergies: No Known Allergies (Unverified , 04/21/18) Objective Last 24 Hour Vital Signs Date Time Temp Pulse Resp B/P (MAP) Pulse Ox O2 Delivery O2 Flow Rate FiO2 01/23/20 09:22 79 142/75 01/23/20 09:22 142/75 01/23/20 08:00 97.6 79 17 142/75 (97) 97 01/23/20 04:00 98.2 77 17 130/60 (83) 99 01/23/20 00:00 97.9 74 18 127/58 (81) 99 01/22/20 21:00 Room Air 01/22/20 20:45 97.7 80 17 132/61 (84) 99 01/22/20 20:00 96.4 77 20 133/50 (77) 99 01/22/20 15:58 80 01/22/20 15:58 97.9 76 20 113/61 (78) 100 01/22/20 12:00 74 01/22/20 12:00 96.7 81 20 125/60 (81) 99 Intake and Output 01/22/20 01/23/20 19:00 07:00 Intake Total 1320 ml 980 ml Output Total 550 ml Balance 770 ml 980 ml Intake Oral 1320 ml 480 ml IV Total 500 ml Output Urine Total 550 ml # Voids 2 # Bowel Movements 4 3 General Appearance: no acute distress HEENT: normocephalic Respiratory: chest wall non-tender, lungs clear Cardiovascular: normal peripheral pulses, normal rate Abdomen: normal bowel sounds, soft, non tender Extremities: no cyanosis Microbiology Date/Time Source Procedure Growth Status 01/21/20 10:45 Stool Clostridium difficile Toxin Assay - Final Complete 01/21/20 04:20 Rectum VRE Culture - Final Enterococcus Faecium - Vre Complete 01/21/20 04:20 Urine,Clean Catch Urine Culture - Preliminary Strep Species, Alpha Hemolytic Resulted 01/21/20 02:23 Arm Right Blood Culture - Preliminary Resulted 01/21/20 02:13 Arm Left Blood Culture - Preliminary Resulted Laboratory Tests 01/22/20 11:29: POC Whole Blood Glucose 108H 01/22/20 15:28: POC Whole Blood Glucose 121H 01/22/20 16:43: POC Whole Blood Glucose 127H 01/22/20 20:11: POC Whole Blood Glucose 191H 01/23/20 05:30: White Blood Count 7.5, Red Blood Count 2.42L, Hemoglobin 7.6L, Hematocrit 23.9L, Mean Corpuscular Volume 99, Mean Corpuscular Hemoglobin 31.4H, Mean Corpuscular Hemoglobin Concent 31.8L, Red Cell Distribution Width 16.0H, Platelet Count 138L , Mean Platelet Volume 6.8, Neutrophils (%) (Auto) , Lymphocytes (%) (Auto) , Monocytes (%) (Auto) , Eosinophils (%) (Auto) , Basophils (%) (Auto) , Sodium Level 138, Potassium Level 3.4L, Chloride Level 107, Carbon Dioxide Level 25, Anion Gap 7, Blood Urea Nitrogen 30H, Creatinine 3.8H, Estimat Glomerular Filtration Rate 16.1, Glucose Level 177#H, Calcium Level 7.5L, Phosphorus Level 2.9, Total Bilirubin 0.4, Aspartate Amino Transf (AST/SGOT) 16, Alanine Aminotransferase (ALT/SGPT) < 6L, Alkaline Phosphatase 117H, C-Reactive Protein, Quantitative 10.3H, Pro-B-Type Natriuretic Peptide [id number], Total Protein 5.5L, Albumin 1.8L, Globulin 3.7, Albumin/Globulin Ratio 0.5L 01/23/20 05:47: POC Whole Blood Glucose 165H Current Medications Medications (Trade) Dose Ordered Sig/Jamal Route PRN Reason Start Time Stop Time Status Last Admin Dose Admin Acetaminophen (Tylenol) 650 mg Q6H PRN ORAL For Pain 3-6 / Fever >100.5 01/21/20 12:00 02/20/20 11:59 01/22/20 22:25 Amlodipine Besylate (Norvasc) 2.5 mg DAILY ORAL 01/22/20 09:00 02/21/20 08:59 01/23/20 09:22 Dextrose 1,000 ml @ 50 mls/hr Q20H IV 01/22/20 07:30 02/21/20 07:29 01/23/20 03:50 Dextrose (Dextrose 50%) 25 ml Q30M PRN IV Hypoglycemia 01/21/20 12:00 04/20/20 11:59 Dextrose (Dextrose 50%) 50 ml Q30M PRN IV Hypoglycemia 01/21/20 12:00 04/20/20 11:59 Epoetin Andre (Epoetin Andre(ESRD on dialysis)) 10,000 unit THU-THU-THU SUBQ 01/23/20 21:00 04/22/20 20:59 Folic Acid (Folate) 5 mg DAILY ORAL 01/22/20 11:00 02/21/20 10:59 01/23/20 09:22 Lisinopril (ZestriL) 10 mg DAILY ORAL 01/22/20 09:00 02/21/20 08:59 01/23/20 09:22 Loperamide HCl (Imodium) 2 mg TIDPRN PRN ORAL Diarrhea 01/23/20 09:45 02/22/20 09:44 Ondansetron HCl (Zofran) 4 mg Q6H PRN IVP Nausea & Vomiting 01/21/20 12:00 02/20/20 11:59 Pantoprazole (Protonix) 40 mg DAILY ORAL 01/22/20 09:00 02/21/20 08:59 01/23/20 09:22 Tamsulosin HCl (Flomax) 0.4 mg BID ORAL 01/21/20 18:00 02/20/20 17:59 01/23/20 09:22 Assessment/Plan Assessment/Plan IMPRESSION: 1. Mild pulmonary edema. 2. Hyperkalemia. 3. ESRD, on dialysis. 4. Hypertension. 5. Encephalopathy. DISCUSSION: The patient is confused and is not able to care for himself. He likely will need to be placed in a facility and be cared for dialysis. Continue oxygen. I will follow. Nataliya Mclaughlin Omar Syed MD Jan 23, 2020 10:08
[2020-01-23 12:00] VITALS: BP 140/70
--- NOTE | 2020-01-23 12:19 | Nephrology Progress Note ---
Assessment/Plan Problem List: (1) Hyperkalemia (2) JONA (acute kidney injury) (3) Failure to thrive in adult (4) Anemia (5) Malnutrition Assessment: BMI 18.3 Assessment 1) JONA (acute kidney injury) (2) Hyperkalemia (3) Anemia (4) Metabolic acidosis (5) Ureter obstruction (6) Failure to thrive, BMI 18 Plan January 22: Dialyzed yesterday. Today's labs reviewed. Medications reviewed. Outpatient dialysis unit placement to be processed. January 21: More Kayexalate for hyperkalemia. Due for dialysis today. Renal diet. Keep the blood pressure in check. Patient advised to be compliant through a armature connector. Folic acid p.o. initiated Subjective ROS Limited/Unobtainable: No Constitutional: Reports: malaise Objective Objective Last 24 Hour Vital Signs Date Time Temp Pulse Resp B/P (MAP) Pulse Ox O2 Delivery O2 Flow Rate FiO2 01/23/20 09:22 79 142/75 01/23/20 09:22 142/75 01/23/20 08:00 97.6 79 17 142/75 (97) 97 01/23/20 04:00 98.2 77 17 130/60 (83) 99 01/23/20 00:00 97.9 74 18 127/58 (81) 99 01/22/20 21:00 Room Air 01/22/20 20:45 97.7 80 17 132/61 (84) 99 01/22/20 20:00 96.4 77 20 133/50 (77) 99 01/22/20 15:58 80 01/22/20 15:58 97.9 76 20 113/61 (78) 100 Intake and Output 01/22/20 01/23/20 19:00 07:00 Intake Total 1320 ml 980 ml Output Total 550 ml Balance 770 ml 980 ml Intake Oral 1320 ml 480 ml IV Total 500 ml Output Urine Total 550 ml # Voids 2 # Bowel Movements 4 3 Current Medications Medications (Trade) Dose Ordered Sig/Jamal Route PRN Reason Start Time Stop Time Status Last Admin Dose Admin Acetaminophen (Tylenol) 650 mg Q6H PRN ORAL For Pain 3-6 / Fever >100.5 01/21/20 12:00 02/20/20 11:59 01/22/20 22:25 Amlodipine Besylate (Norvasc) 2.5 mg DAILY ORAL 01/22/20 09:00 02/21/20 08:59 01/23/20 09:22 Dextrose 1,000 ml @ 50 mls/hr Q20H IV 01/22/20 07:30 02/21/20 07:29 01/23/20 03:50 Dextrose (Dextrose 50%) 25 ml Q30M PRN IV Hypoglycemia 01/21/20 12:00 04/20/20 11:59 Dextrose (Dextrose 50%) 50 ml Q30M PRN IV Hypoglycemia 01/21/20 12:00 04/20/20 11:59 Epoetin Andre (Epoetin Andre(ESRD on dialysis)) 10,000 unit THU- SUBQ 01/23/20 21:00 04/22/20 20:59 Folic Acid (Folate) 5 mg DAILY ORAL 01/22/20 11:00 02/21/20 10:59 01/23/20 09:22 Lisinopril (ZestriL) 10 mg DAILY ORAL 01/22/20 09:00 02/21/20 08:59 01/23/20 09:22 Loperamide HCl (Imodium) 2 mg TIDPRN PRN ORAL Diarrhea 01/23/20 09:45 02/22/20 09:44 01/23/20 11:12 Ondansetron HCl (Zofran) 4 mg Q6H PRN IVP Nausea & Vomiting 01/21/20 12:00 02/20/20 11:59 Pantoprazole (Protonix) 40 mg DAILY ORAL 01/22/20 09:00 02/21/20 08:59 01/23/20 09:22 Tamsulosin HCl (Flomax) 0.4 mg BID ORAL 01/21/20 18:00 02/20/20 17:59 01/23/20 09:22 Vancomycin HCl (Vanco pharmacy to dose) 1 ea DAILY PRN MISC Per rx protocol 01/23/20 12:00 02/22/20 11:59 Vancomycin HCl 1 gm/Dextrose 275 ml @ 183.708 mls/hr ONCE IVPB 01/23/20 14:00 01/23/20 16:00 Laboratory Tests 01/22/20 15:28: POC Whole Blood Glucose 121H 01/22/20 16:43: POC Whole Blood Glucose 127H 01/22/20 20:11: POC Whole Blood Glucose 191H 01/23/20 05:30: White Blood Count 7.5, Red Blood Count 2.42L, Hemoglobin 7.6L, Hematocrit 23.9L, Mean Corpuscular Volume 99, Mean Corpuscular Hemoglobin 31.4H, Mean Corpuscular Hemoglobin Concent 31.8L, Red Cell Distribution Width 16.0H, Platelet Count 138L , Mean Platelet Volume 6.8, Neutrophils (%) (Auto) , Lymphocytes (%) (Auto) , Monocytes (%) (Auto) , Eosinophils (%) (Auto) , Basophils (%) (Auto) , Sodium Level 138, Potassium Level 3.4L, Chloride Level 107, Carbon Dioxide Level 25, Anion Gap 7, Blood Urea Nitrogen 30H, Creatinine 3.8H, Estimat Glomerular Filtra tion Rate 16.1, Glucose Level 177#H, Calcium Level 7.5L, Phosphorus Level 2.9, Total Bilirubin 0.4, Aspartate Amino Transf (AST/SGOT) 16, Alanine Aminotransferase (ALT/SGPT) < 6L, Alkaline Phosphatase 117H, C-Reactive Protein, Quantitative 10.3H, Pro-B-Type Natriuretic Peptide 94155N, Total Protein 5.5L, Albumin 1.8L, Globulin 3.7, Albumin/Globulin Ratio 0.5L 01/23/20 05:47: POC Whole Blood Glucose 165H Height (Feet): 5 Height (Inches): 5.00 Weight (Pounds): 110 General Appearance: no apparent distress Objective No change Orlin Berrios MD Jan 23, 2020 12:19
--- NOTE | 2020-01-23 12:44 | Consultation ---
DATE OF CONSULTATION: 01/23/2020 INFECTIOUS DISEASES CONSULTATION CONSULTING PHYSICIAN: Paolo Napier MD REFERRING PHYSICIAN: Kamron Allan MD REASON FOR CONSULTATION: Possible sepsis. HISTORY OF PRESENTING ILLNESS: This is a 64-year-old gentleman with history of renal failure on dialysis, diabetes, and hypertension, who came in with shortness of breath. There was a concern for pneumonia and an Infectious Diseases consultation has been obtained for antibiotics. PAST MEDICAL HISTORY: 1. History of diabetes. 2. Hypertension. 3. Renal failure, on dialysis. SOCIAL HISTORY: Unknown. FAMILY HISTORY: Unknown. REVIEW OF SYSTEMS: Unable to obtain currently. MEDICATIONS: As an inpatient, he is on Epogen, loperamide, folic acid, Protonix, amlodipine, lisinopril, Flomax, Zofran, and Tylenol. ALLERGIES: No known drug allergies. PHYSICAL EXAMINATION: VITAL SIGNS: Temperature of 97.6, T-max of 99.3, pulse of 79, respiratory rate 17, blood pressure 142/75, O2 saturation of 97%. HEENT: Pupils equally reactive to light and accommodation. Mouth appears clean without thrush. NECK: Supple. No adenopathy. No JVD. CARDIOVASCULAR: Regular rate and rhythm. No murmurs. LUNGS: Clear to auscultation bilaterally. No crackles. No wheezes. ABDOMEN: Soft, nontender. No organomegaly. EXTREMITIES: No cyanosis. No clubbing. No edema. LABORATORY AND DIAGNOSTIC DATA: White count 7.5, hemoglobin 7.6, hematocrit 23.9, MCV 99, platelet count of 138,000. Sodium 138, potassium 3.4, chloride 107, bicarb 25, BUN 30, creatinine 3.8, glucose of 177, calcium 7.5. Total bilirubin 0.4, AST 16, ALT less than 6, alkaline phosphatase 117. C-reactive protein 10.3. Beta-natriuretic peptide 12,473. Total protein 5.5, albumin 1.8. UA is showing 2-4 white cells. Blood cultures showing gram-positive cocci in pairs and chains. Nasal swab was negative for MRSA. Urine culture is growing alpha hemolytic Streptococcus more than 100,000 colonies. Rectal swab was positive for VRE. Stool for C. difficile colitis is negative. Chest x-ray is showing patchy reticular airspace disease most notably in the mid lower lung, raising concern for pneumonia. ASSESSMENT: This is a 64-year-old gentleman with history of diabetes, hypertension, renal failure, on dialysis, who comes in with shortness of breath and is found to have: 1. Gram-positive sepsis, would be concerned regarding bacterial pneumonia. 2. We would like to rule out endocarditis as a possibility. 3. Streptococcus urinary tract infection. 4. Pneumonia. 5. Diabetes. 6. Hypertension. 7. Renal failure. 8. Rule out COVID-19 pneumonia. PLAN: 1. We will start the patient on IV vancomycin. 2. We will order a COVID-19 testing. [address] will place the patient on contact isolation. I would like to thank Dr. Allan for this consultation. Paolo Napier M.D. DR: Jared JOB#: [id number] CC:
[2020-01-23] MEDS ORDERED: Vancomycin 1gm in D5W 275ml IVPB SCH (14:00)
[2020-01-23 16:00] VITALS: BP 136/78
[2020-01-23 20:00] VITALS: BP 113/88
[2020-01-24 00:26] VITALS: BP 118/79
[2020-01-24] MEDS: Epoetin Alfa-EPBX(ESRD on dialysis)10,000 unit/ml vial SUBQ SCH (01:09)
[2020-01-24 04:00] VITALS: BP 128/84
[2020-01-24] MEDS ORDERED: Vancomycin 500mg/D5W 110ml IVPB ONE ×2 (08:00)
[2020-01-24 08:50] VITALS: BP 138/79
[2020-01-24] MEDS: Tamsulosin 0.4mg cap ORAL SCH ×2 (08:50→17:30)
[2020-01-24] MEDS: Lisinopril 10mg tab ORAL SCH (08:51)
--- NOTE | 2020-01-24 09:47 | Pulmonology Progress Note ---
Subjective ROS Limited/Unobtainable: No Interval Events: None new Constitutional: Reports: no symptoms HEENT: Repors: no symptoms Respiratory: Reports: no symptoms Cardiovascular: Reports: no symptoms Gastrointestinal/Abdominal: Reports: no symptoms Allergies: Coded Allergies: No Known Allergies (Unverified , 04/21/18) Objective Last 24 Hour Vital Signs Date Time Temp Pulse Resp B/P (MAP) Pulse Ox O2 Delivery O2 Flow Rate FiO2 01/24/20 08:52 80 138/79 01/24/20 08:51 138/79 01/24/20 04:00 98.9 99 20 128/84 (99) 98 01/24/20 00:26 98.3 84 20 118/79 (92) 98 01/23/20 21:00 Room Air 01/23/20 20:00 97.8 87 20 113/88 (96) 98 01/23/20 16:00 97.9 78 17 136/78 (97) 98 01/23/20 12:00 98.1 77 18 140/70 (93) 99 Intake and Output 01/23/20 01/24/20 19:00 07:00 Intake Total 650 ml 500 ml Balance 650 ml 500 ml IV Total 50 ml 500 ml Other 600 ml # Bowel Movements 5 General Appearance: no acute distress HEENT: normocephalic Respiratory: chest wall non-tender, lungs clear Cardiovascular: normal peripheral pulses, normal rate Abdomen: normal bowel sounds, soft, non tender Extremities: no cyanosis Microbiology Date/Time Source Procedure Growth Status 01/23/20 14:00 Nasopharynx SARS-CoV-2 RdRp Gene Assay - Final Complete 01/21/20 10:45 Stool Clostridium difficile Toxin Assay - Final Complete Laboratory Tests 01/23/20 21:36: POC Whole Blood Glucose 136H 01/24/20 04:33: Random Vancomycin Level 13.3 01/24/20 04:50: POC Whole Blood Glucose 119H Current Medications Medications (Trade) Dose Ordered Sig/Jamal Route PRN Reason Start Time Stop Time Status Last Admin Dose Admin Acetaminophen (Tylenol) 650 mg Q6H PRN ORAL For Pain 3-6 / Fever >100.5 01/21/20 12:00 02/20/20 11:59 01/22/20 22:25 Amlodipine Besylate (Norvasc) 2.5 mg DAILY ORAL 01/22/20 09:00 02/21/20 08:59 01/24/20 08:52 Dextrose 1,000 ml @ 50 mls/hr Q20H IV 01/22/20 07:30 02/21/20 07:29 01/23/20 03:50 Dextrose (Dextrose 50%) 25 ml Q30M PRN IV Hypoglycemia 01/21/20 12:00 04/20/20 11:59 Dextrose (Dextrose 50%) 50 ml Q30M PRN IV Hypoglycemia 01/21/20 12:00 04/20/20 11:59 Epoetin Andre (Epoetin Andre(ESRD on dialysis)) 10,000 unit THU-THU-THU SUBQ 01/23/20 21:00 04/22/20 20:59 01/24/20 01:09 Folic Acid (Folate) 5 mg DAILY ORAL 01/22/20 11:00 02/21/20 10:59 01/24/20 08:51 Lisinopril (ZestriL) 10 mg DAILY ORAL 01/22/20 09:00 02/21/20 08:59 01/24/20 08:51 Loperamide HCl (Imodium) 2 mg TIDPRN PRN ORAL Diarrhea 01/23/20 09:45 02/22/20 09:44 01/23/20 11:12 Ondansetron HCl (Zofran) 4 mg Q6H PRN IVP Nausea & Vomiting 01/21/20 12:00 02/20/20 11:59 Pantoprazole (Protonix) 40 mg DAILY ORAL 01/22/20 09:00 02/21/20 08:59 01/24/20 08:51 Tamsulosin HCl (Flomax) 0.4 mg BID ORAL 01/21/20 18:00 02/20/20 17:59 01/24/20 08:50 Vancomycin HCl (Vanco pharmacy to dose) 1 ea DAILY PRN MISC Per rx protocol 01/23/20 12:00 02/22/20 11:59 Assessment/Plan Assessment/Plan IMPRESSION: 1. Mild pulmonary edema. 2. Hyperkalemia. 3. ESRD, on dialysis. 4. Hypertension. 5. Toxic-metabolic encephalopathy. DISCUSSION: The patient is confused and is not able to care for himself. He likely will need to be placed in a facility and be cared for dialysis. Continue oxygen prn only; currently on RA I will follow. Nataliya Mclaughlin Omar Syed MD Jan 24, 2020 09:47
[2020-01-24 12:00] VITALS: BP 147/75
--- NOTE | 2020-01-24 13:16 | Nephrology Progress Note ---
Assessment/Plan Problem List: (1) Hyperkalemia (2) JONA (acute kidney injury) (3) Failure to thrive in adult (4) Anemia (5) Malnutrition Assessment: BMI 18.3 Assessment 1) JONA (acute kidney injury) (2) Hyperkalemia (3) Anemia (4) Metabolic acidosis (5) Ureter obstruction (6) Failure to thrive, BMI 18 Plan January 23: Patient doing well. Labs reviewed. No blood work is available for today. Medication list reviewed. Will continue to dialysis as needed. Process of discharge and outpatient dialysis unit placement. January 22: Dialyzed yesterday. Today's labs reviewed. Medications reviewed. Outpatient dialysis unit placement to be processed. January 21: More Kayexalate for hyperkalemia. Due for dialysis today. Renal diet. Keep the blood pressure in check. Patient advised to be compliant through a adult education teacher. Folic acid p.o. initiated Subjective ROS Limited/Unobtainable: No Constitutional: Reports: malaise Objective Objective Last 24 Hour Vital Signs Date Time Temp Pulse Resp B/P (MAP) Pulse Ox O2 Delivery O2 Flow Rate FiO2 01/24/20 12:00 97.3 73 18 147/75 (99) 98 01/24/20 08:52 80 138/79 01/24/20 08:51 138/79 01/24/20 08:50 98.3 79 18 138/79 (98) 98 01/24/20 04:00 98.9 99 20 128/84 (99) 98 01/24/20 00:26 98.3 84 20 118/79 (92) 98 01/23/20 21:00 Room Air 01/23/20 20:00 97.8 87 20 113/88 (96) 98 01/23/20 16:00 97.9 78 17 136/78 (97) 98 Intake and Output 01/23/20 01/24/20 19:00 07:00 Intake Total 650 ml 500 ml Balance 650 ml 500 ml IV Total 50 ml 500 ml Other 600 ml # Bowel Movements 5 Current Medications Medications (Trade) Dose Ordered Sig/Jamal Route PRN Reason Start Time Stop Time Status Last Admin Dose Admin Acetaminophen (Tylenol) 650 mg Q6H PRN ORAL For Pain 3-6 / Fever >100.5 01/21/20 12:00 02/20/20 11:59 01/22/20 22:25 Amlodipine Besylate (Norvasc) 2.5 mg DAILY ORAL 01/22/20 09:00 02/21/20 08:59 01/24/20 08:52 Dextrose 1,000 ml @ 50 mls/hr Q20H IV 01/22/20 07:30 02/21/20 07:29 01/24/20 12:02 Dextrose (Dextrose 50%) 25 ml Q30M PRN IV Hypoglycemia 01/21/20 12:00 04/20/20 11:59 Dextrose (Dextrose 50%) 50 ml Q30M PRN IV Hypoglycemia 01/21/20 12:00 04/20/20 11:59 Epoetin Andre (Epoetin Andre(ESRD on dialysis)) 10,000 unit SUBQ 01/23/20 21:00 04/22/20 20:59 01/24/20 01:09 Folic Acid (Folate) 5 mg DAILY ORAL 01/22/20 11:00 02/21/20 10:59 01/24/20 08:51 Lisinopril (ZestriL) 10 mg DAILY ORAL 01/22/20 09:00 02/21/20 08:59 01/24/20 08:51 Loperamide HCl (Imodium) 2 mg TIDPRN PRN ORAL Diarrhea 01/23/20 09:45 02/22/20 09:44 01/23/20 11:12 Ondansetron HCl (Zofran) 4 mg Q6H PRN IVP Nausea & Vomiting 01/21/20 12:00 02/20/20 11:59 Pantoprazole (Protonix) 40 mg DAILY ORAL 01/22/20 09:00 02/21/20 08:59 01/24/20 08:51 Tamsulosin HCl (Flomax) 0.4 mg BID ORAL 01/21/20 18:00 02/20/20 17:59 01/24/20 08:50 Vancomycin HCl (Vanco pharmacy to dose) 1 ea DAILY PRN MISC Per rx protocol 01/23/20 12:00 02/22/20 11:59 Laboratory Tests 01/23/20 21:36: POC Whole Blood Glucose 136H 01/24/20 04:33: Random Vancomycin Level 13.3 01/24/20 04:50: POC Whole Blood Glucose 119H Height (Feet): 5 Height (Inches): 5.00 Weight (Pounds): 110 General Appearance: no apparent distress Cardiovascular: normal rate Respiratory/Chest: lungs clear Abdomen: soft Objective No change Orlin Berrios MD Jan 24, 2020 13:16
--- NOTE | 2020-01-24 14:31 | Infectious Diseases Prog Note ---
Assessment/Plan Assessment/Plan antibiotics : vancomycin iv A 1. gram positive sepsis 2. pneumonia 2. diabetes mellitus 4. hypertension 5. renal failure on HD P 1. continue iv vancomycin 2. start ceftriaxone 3. will follow up cultures Subjective Constitutional: Denies: fever, chills Respiratory: Denies: shortness of breath, dry cough Gastrointestinal/Abdominal: Reports: diarrhea; Denies: nausea, vomiting Musculoskeletal: Denies: pain Allergies: Coded Allergies: No Known Allergies (Unverified , 04/21/18) Objective Last 24 Hour Vital Signs Date Time Temp Pulse Resp B/P (MAP) Pulse Ox O2 Delivery O2 Flow Rate FiO2 01/24/20 12:00 97.3 73 18 147/75 (99) 98 01/24/20 08:52 80 138/79 01/24/20 08:51 138/79 01/24/20 08:50 98.3 79 18 138/79 (98) 98 01/24/20 04:00 98.9 99 20 128/84 (99) 98 01/24/20 00:26 98.3 84 20 118/79 (92) 98 01/23/20 21:00 Room Air 01/23/20 20:00 97.8 87 20 113/88 (96) 98 01/23/20 16:00 97.9 78 17 136/78 (97) 98 Height (Feet): 5 Height (Inches): 5.00 Weight (Pounds): 110 Respiratory/Chest: lungs clear Cardiovascular: normal rate, regular rhythm, no gallop/murmur Abdomen: soft, non tender Extremities: no edema, other - right subclavian catheter Microbiology Date/Time Source Procedure Growth Status 01/23/20 14:00 Nasopharynx SARS-CoV-2 RdRp Gene Assay - Final Complete Laboratory Tests Test 01/23/20 21:36 01/24/20 04:33 01/24/20 04:50 POC Whole Blood Glucose 136 MG/DL (74-106) H 119 MG/DL (74-106) H Random Vancomycin Level 13.3 ug/mL Current Medications Medications (Trade) Dose Ordered Sig/Jamal Route PRN Reason Start Time Stop Time Status Last Admin Dose Admin Acetaminophen (Tylenol) 650 mg Q6H PRN ORAL For Pain 3-6 / Fever >100.5 01/21/20 12:00 02/20/20 11:59 01/22/20 22:25 Amlodipine Besylate (Norvasc) 2.5 mg DAILY ORAL 01/22/20 09:00 02/21/20 08:59 01/24/20 08:52 Dextrose (Dextrose 50%) 25 ml Q30M PRN IV Hypoglycemia 01/21/20 12:00 04/20/20 11:59 Dextrose (Dextrose 50%) 50 ml Q30M PRN IV Hypoglycemia 01/21/20 12:00 04/20/20 11:59 Epoetin Andre (Epoetin Andre(ESRD on dialysis)) 10,000 unit THU- SUBQ 01/23/20 21:00 04/22/20 20:59 01/24/20 01:09 Folic Acid (Folate) 5 mg DAILY ORAL 01/22/20 11:00 02/21/20 10:59 01/24/20 08:51 Lisinopril (ZestriL) 10 mg DAILY ORAL 01/22/20 09:00 02/21/20 08:59 01/24/20 08:51 Loperamide HCl (Imodium) 2 mg TIDPRN PRN ORAL Diarrhea 01/23/20 09:45 02/22/20 09:44 01/23/20 11:12 Ondansetron HCl (Zofran) 4 mg Q6H PRN IVP Nausea & Vomiting 01/21/20 12:00 02/20/20 11:59 Pantoprazole (Protonix) 40 mg DAILY ORAL 01/22/20 09:00 02/21/20 08:59 01/24/20 08:51 Tamsulosin HCl (Flomax) 0.4 mg BID ORAL 01/21/20 18:00 02/20/20 17:59 01/24/20 08:50 Vancomycin HCl (Vanco pharmacy to dose) 1 ea DAILY PRN MISC Per rx protocol 01/23/20 12:00 02/22/20 11:59 Paolo Napier MD Jan 24, 2020 14:31
[2020-01-24] MEDS: cefTRIAXone 1 GM in D5W 55 ML IVPB SCH (15:36)
--- NOTE | 2020-01-24 15:55 | General Progress Note ---
Subjective Allergies: Coded Allergies: No Known Allergies (Unverified , 04/21/18) Subjective doing ok weakness Objective Last 24 Hour Vital Signs Date Time Temp Pulse Resp B/P (MAP) Pulse Ox O2 Delivery O2 Flow Rate FiO2 01/24/20 12:00 97.3 73 18 147/75 (99) 98 01/24/20 08:52 80 138/79 01/24/20 08:51 138/79 01/24/20 08:50 98.3 79 18 138/79 (98) 98 01/24/20 04:00 98.9 99 20 128/84 (99) 98 01/24/20 00:26 98.3 84 20 118/79 (92) 98 01/23/20 21:00 Room Air 01/23/20 20:00 97.8 87 20 113/88 (96) 98 01/23/20 16:00 97.9 78 17 136/78 (97) 98 Intake and Output 01/23/20 01/24/20 19:00 07:00 Intake Total 650 ml 500 ml Balance 650 ml 500 ml IV Total 50 ml 500 ml Other 600 ml # Bowel Movements 5 Laboratory Tests 01/23/20 21:36: POC Whole Blood Glucose 136H 01/24/20 04:33: Random Vancomycin Level 13.3 01/24/20 04:50: POC Whole Blood Glucose 119H Height (Feet): 5 Height (Inches): 5.00 Weight (Pounds): 110 General Appearance: alert Neck: non-tender, supple Cardiovascular: regular rhythm Respiratory/Chest: normal breath sounds Abdomen: non tender, soft Assessment/Plan Assessment/Plan: 1 sepsis 2 diarrea 3 dm 2 4 esrdon hd 5 htn 6 weakness 7 bactremia id consult dc macrobid dc plan to snf tomorrow Kamron Phelan cm, MD Jan 24, 2020 15:55
[2020-01-24 16:00] VITALS: BP 122/76
[2020-01-24] MEDS: Linezolid 600mg/300mL Premix IVPB SCH ×2 (17:27→22:29)
[2020-01-24 20:44] VITALS: BP 138/63
[2020-01-25] VITALS: BP 141/75
[2020-01-25 04:00] VITALS: BP 147/78
[2020-01-25 06:46] LABS: BASOPHILS % (AUTO) 1.3 % (0.0-2.0); EOSINOPHILS % (AUTO) 1.3 % (0.0-3.0); HEMATOCRIT 29.5 % (42.0-52.0); HEMOGLOBIN 9.4 G/DL (14.2-18.0); LYMPHOCYTES % (AUTO) 15.9 % (20.0-45.0); MEAN CORPUSCULAR VOLUME 97 FL (80-99); MONOCYTES % (AUTO) 7.3 % (1.0-10.0); NEUTROPHILS % (AUTO) 74.2 % (45.0-75.0); PLATELET COUNT 162 K/UL (150-450); RED BLOOD COUNT 3.04 M/UL (4.70-6.10); RED CELL DISTRIBUTION WIDTH 15.8 % (11.6-14.8); WHITE BLOOD COUNT 6.9 K/UL (4.8-10.8)
[2020-01-25 07:04] LABS: ALBUMIN 1.8 G/DL (3.4-5.0); ALBUMIN/GLOBULIN RATIO 0.4 (1.0-2.7); BILIRUBIN,TOTAL 0.4 MG/DL (0.2-1.0); CALCIUM 7.9 MG/DL (8.5-10.1); CREATININE 4.9 MG/DL (0.55-1.30)
[2020-01-25 08:45] VITALS: BP 115/55
[2020-01-25] MEDS: Tamsulosin 0.4mg cap ORAL SCH ×2 (08:49→19:03)
--- NOTE | 2020-01-25 08:59 | General Progress Note ---
Subjective Allergies: Coded Allergies: No Known Allergies (Unverified , 04/21/18) Subjective doing ok weakness Objective Last 24 Hour Vital Signs Date Time Temp Pulse Resp B/P (MAP) Pulse Ox O2 Delivery O2 Flow Rate FiO2 01/25/20 04:00 98.6 84 18 147/78 (101) 97 01/25/20 00:00 98.0 79 18 141/75 (97) 98 01/24/20 20:44 97.7 72 18 138/63 (88) 95 01/24/20 20:17 Room Air 01/24/20 16:00 98.3 74 19 122/76 (91) 97 01/24/20 12:00 97.3 73 18 147/75 (99) 98 Intake and Output 01/24/20 01/25/20 19:00 07:00 Intake Total 900 ml 660 ml Balance 900 ml 660 ml Intake Oral 360 ml IV Total 300 ml 300 ml Other 600 ml # Voids 2 # Bowel Movements 3 Laboratory Tests 01/25/20 05:42: POC Whole Blood Glucose 119H 01/25/20 06:05: White Blood Count 6.9, Red Blood Count 3.04L, Hemoglobin 9.4L, Hematocrit 29.5L, Mean Corpuscular Volume 97, Mean Corpuscular Hemoglobin 31.0, Mean Corpuscular Hemoglobin Concent 31.9L, Red Cell Distribution Width 15.8H, Platelet Count 162, Mean Platelet Volume 5.7L, Neutrophils (%) (Auto) 74.2, Lymphocytes (%) (Auto) 15.9L, Monocytes (%) (Auto) 7.3, Eosinophils (%) (Auto) 1.3, Basophils (%) (Auto) 1.3, Sodium Level 136, Potassium Level 4.0, Chloride Level 104, Carbon Dioxide Level 21, Anion Gap 11, Blood Urea Nitrogen 42H, Creatinine 4.9H, Estimat Glomerular Filtration Rate 12.0, Glucose Level 120H, Uric Acid 5.7, Calcium Level 7.9L, Phosphorus Level 4.0, Magnesium Level 1.8, Total Bilirubin 0.4, Aspartate Amino Transf (AST/SGOT) 16, Alanine Aminotransferase (ALT/SGPT) 6L, Alkaline Phosphatase 118H, C-Reactive Protein, Quantitative 9.3H, Pro-B-Type Natriuretic Peptide 86091A, Total Protein 6.0L, Albumin 1.8L, Globulin 4.2, Albumin/Globulin Ratio 0.4L Height (Feet): 5 Height (Inches): 5.00 Weight (Pounds): 110 General Appearance: alert EENT: PERRL/EOMI Neck: supple Cardiovascular: regular rhythm Respiratory/Chest: normal breath sounds Abdomen: non tender, soft Extremities: non-tender Assessment/Plan Assessment/Plan: 1 sepsis 2 diarrea 3 dm 2 4 esrdon hd 5 htn 6 weakness 7 bactremia id consult dc macrobid dc plan to snf Kamron Ruiz MD Jan 25, 2020 08:59
[2020-01-25] MEDS ORDERED: ACETAMINOPHEN325 M1 ORAL (09:17)
[2020-01-25] MEDS ORDERED: EPOGEN10000 UNIT SUBQ (09:18)
[2020-01-25] MEDS ORDERED: AMLODIPINE BES2.5 MG ORAL (09:18)
[2020-01-25] MEDS ORDERED: LISINOPRIL10 MG ORAL (09:19)
[2020-01-25] MEDS ORDERED: FOLIC ACID1 MG ORAL (09:19)
[2020-01-25] MEDS ORDERED: LOPERAMIDE2 MG PO (09:20)
[2020-01-25] MEDS ORDERED: PANTOPRAZOLE SO40 MG ORAL (09:21)
[2020-01-25] MEDS ORDERED: FLOMAX0.4 MG ORAL (09:21)
--- NOTE | 2020-01-25 09:40 | Pulmonology Progress Note ---
Subjective ROS Limited/Unobtainable: No Interval Events: None new Constitutional: Denies: fever, chills HEENT: Repors: no symptoms Respiratory: Reports: no symptoms Cardiovascular: Reports: no symptoms Gastrointestinal/Abdominal: Reports: diarrhea; Denies: nausea, vomiting Musculoskeletal: Denies: pain Allergies: Coded Allergies: No Known Allergies (Unverified , 04/21/18) Objective Last 24 Hour Vital Signs Date Time Temp Pulse Resp B/P (MAP) Pulse Ox O2 Delivery O2 Flow Rate FiO2 01/25/20 08:53 72 115/55 01/25/20 08:45 97.2 72 17 115/55 (75) 97 01/25/20 04:00 98.6 84 18 147/78 (101) 97 01/25/20 00:00 98.0 79 18 141/75 (97) 98 01/24/20 20:44 97.7 72 18 138/63 (88) 95 01/24/20 20:17 Room Air 01/24/20 16:00 98.3 74 19 122/76 (91) 97 01/24/20 12:00 97.3 73 18 147/75 (99) 98 Intake and Output 01/24/20 01/25/20 19:00 07:00 Intake Total 900 ml 660 ml Balance 900 ml 660 ml Intake Oral 360 ml IV Total 300 ml 300 ml Other 600 ml # Voids 2 # Bowel Movements 3 General Appearance: no acute distress HEENT: normocephalic Respiratory: chest wall non-tender, lungs clear Cardiovascular: normal peripheral pulses, normal rate Abdomen: normal bowel sounds, soft, non tender Extremities: no cyanosis Microbiology Date/Time Source Procedure Growth Status 01/23/20 14:00 Nasopharynx SARS-CoV-2 RdRp Gene Assay - Final Complete Laboratory Tests 01/25/20 05:42: POC Whole Blood Glucose 119H 01/25/20 06:05: White Blood Count 6.9, Red Blood Count 3.04L, Hemoglobin 9.4L, Hematocrit 29.5L, Mean Corpuscular Volume 97, Mean Corpuscular Hemoglobin 31.0, Mean Corpuscular Hemoglobin Concent 31.9L, Red Cell Distribution Width 15.8H, Platelet Count 162, Mean Platelet Volume 5.7L, Neutrophils (%) (Auto) 74.2, Lymphocytes (%) (Auto) 15.9L, Monocytes (%) (Auto) 7.3, Eosinophils (%) (Auto) 1.3, Basophils (%) (Auto) 1.3, Sodium Level 136, Potassium Level 4.0, Chloride Level 104, Carbon Dioxide Level 21, Anion Gap 11, Blood Urea Nitrogen 42H, Creatinine 4.9H, Estimat Glomerular Filtration Rate 12.0, Glucose Level 120H, Uric Acid 5.7, Calcium Level 7.9L, Phosphorus Level 4.0, Magnesium Level 1.8, Total Bilirubin 0.4, Aspartate Amino Transf (AST/SGOT) 16, Alanine Aminotransferase (ALT/SGPT) 6L, Alkaline Phosphatase 118H, C-Reactive Protein, Quantitative 9.3H, Pro-B-Type Natriuretic Peptide [id number], Total Protein 6.0L, Albumin 1.8L, Globulin 4.2, Albumin/Globulin Ratio 0.4L Current Medications Medications (Trade) Dose Ordered Sig/Jamal Route PRN Reason Start Time Stop Time Status Last Admin Dose Admin Acetaminophen (Tylenol) 650 mg Q6H PRN ORAL For Pain 3-6 / Fever >100.5 01/21/20 12:00 02/20/20 11:59 01/22/20 22:25 Amlodipine Besylate (Norvasc) 2.5 mg DAILY ORAL 01/22/20 09:00 02/21/20 08:59 01/25/20 08:53 Ceftriaxone Sodium 1 gm/ Dextrose 55 ml @ 110 mls/hr Q24H IVPB 01/24/20 15:00 01/31/20 14:59 01/24/20 15:36 Dextrose (Dextrose 50%) 25 ml Q30M PRN IV Hypoglycemia 01/21/20 12:00 04/20/20 11:59 Dextrose (Dextrose 50%) 50 ml Q30M PRN IV Hypoglycemia 01/21/20 12:00 04/20/20 11:59 Epoetin Andre (Epoetin Andre(ESRD on dialysis)) 10,000 unit THU-THU-THU SUBQ 01/23/20 21:00 04/22/20 20:59 01/24/20 01:09 Folic Acid (Folate) 5 mg DAILY ORAL 01/22/20 11:00 02/21/20 10:59 01/25/20 08:51 Linezolid 300 ml @ 300 mls/hr Q12HR IVPB 01/24/20 17:00 01/31/20 16:59 01/24/20 22:29 Lisinopril (ZestriL) 10 mg DAILY ORAL 01/22/20 09:00 02/21/20 08:59 01/24/20 08:51 Loperamide HCl (Imodium) 2 mg TIDPRN PRN ORAL Diarrhea 01/23/20 09:45 02/22/20 09:44 01/25/20 08:55 Ondansetron HCl (Zofran) 4 mg Q6H PRN IVP Nausea & Vomiting 01/21/20 12:00 02/20/20 11:59 Pantoprazole (Protonix) 40 mg DAILY ORAL 01/22/20 09:00 02/21/20 08:59 01/25/20 08:53 Tamsulosin HCl (Flomax) 0.4 mg BID ORAL 01/21/20 18:00 02/20/20 17:59 01/25/20 08:49 Assessment/Plan Assessment/Plan IMPRESSION: 1. Mild pulmonary edema. 2. Hyperkalemia. 3. ESRD, on dialysis. 4. Hypertension. 5. Toxic-metabolic encephalopathy. DISCUSSION: The patient is confused and is not able to care for himself. He likely will need to be placed in a facility and be cared for dialysis. Continue oxygen prn only; currently on RA I will follow. Nataliya Mclaughlin Omar Syed MD Jan 25, 2020 09:39
--- NOTE | 2020-01-25 10:37 | Nephrology Progress Note ---
Assessment/Plan Problem List: (1) Hyperkalemia (2) JONA (acute kidney injury) (3) Failure to thrive in adult (4) Anemia (5) Malnutrition Assessment: BMI 18.3 Assessment 1) JONA (acute kidney injury) (2) Hyperkalemia (3) Anemia (4) Metabolic acidosis (5) Ureter obstruction (6) Failure to thrive, BMI 18 Plan January 24: Status quo. Dialysis tomorrow. Waiting for outpatient dialysis unit placement. January 23: Patient doing well. Labs reviewed. No blood work is available for today. Medication list reviewed. Will continue to dialysis as needed. Process of discharge and outpatient dialysis unit placement. January 22: Dialyzed yesterday. Today's labs reviewed. Medications reviewed. Outpatient dialysis unit placement to be processed. January 21: More Kayexalate for hyperkalemia. Due for dialysis today. Renal diet. Keep the blood pressure in check. Patient advised to be compliant through a branch or department chief librarian. Folic acid p.o. initiated Subjective ROS Limited/Unobtainable: No Constitutional: Reports: malaise Objective Objective Last 24 Hour Vital Signs Date Time Temp Pulse Resp B/P (MAP) Pulse Ox O2 Delivery O2 Flow Rate FiO2 01/25/20 08:53 72 115/55 01/25/20 08:45 97.2 72 17 115/55 (75) 97 01/25/20 04:00 98.6 84 18 147/78 (101) 97 01/25/20 00:00 98.0 79 18 141/75 (97) 98 01/24/20 20:44 97.7 72 18 138/63 (88) 95 01/24/20 20:17 Room Air 01/24/20 16:00 98.3 74 19 122/76 (91) 97 01/24/20 12:00 97.3 73 18 147/75 (99) 98 Intake and Output 01/24/20 01/25/20 19:00 07:00 Intake Total 900 ml 660 ml Balance 900 ml 660 ml Intake Oral 360 ml IV Total 300 ml 300 ml Other 600 ml # Voids 2 # Bowel Movements 3 Current Medications Medications (Trade) Dose Ordered Sig/Jamal Route PRN Reason Start Time Stop Time Status Last Admin Dose Admin Acetaminophen (Tylenol) 650 mg Q6H PRN ORAL For Pain 3-6 / Fever >100.5 01/21/20 12:00 12/7/20 11:59 01/22/20 22:25 Amlodipine Besylate (Norvasc) 2.5 mg DAILY ORAL 01/22/20 09:00 02/21/20 08:59 01/25/20 08:53 Ceftriaxone Sodium 1 gm/ Dextrose 55 ml @ 110 mls/hr Q24H IVPB 01/24/20 15:00 01/31/20 14:59 01/24/20 15:36 Dextrose (Dextrose 50%) 25 ml Q30M PRN IV Hypoglycemia 01/21/20 12:00 04/20/20 11:59 Dextrose (Dextrose 50%) 50 ml Q30M PRN IV Hypoglycemia 01/21/20 12:00 04/20/20 11:59 Epoetin Andre (Epoetin Andre(ESRD on dialysis)) 10,000 unit SUBQ 01/23/20 21:00 04/22/20 20:59 01/24/20 01:09 Folic Acid (Folate) 5 mg DAILY ORAL 01/22/20 11:00 02/21/20 10:59 01/25/20 08:51 Linezolid 300 ml @ 300 mls/hr Q12HR IVPB 01/24/20 17:00 01/31/20 16:59 01/24/20 22:29 Lisinopril (ZestriL) 10 mg DAILY ORAL 01/22/20 09:00 02/21/20 08:59 01/24/20 08:51 Loperamide HCl (Imodium) 2 mg TIDPRN PRN ORAL Diarrhea 01/23/20 09:45 02/22/20 09:44 01/25/20 08:55 Ondansetron HCl (Zofran) 4 mg Q6H PRN IVP Nausea & Vomiting 01/21/20 12:00 02/20/20 11:59 Pantoprazole (Protonix) 40 mg DAILY ORAL 01/22/20 09:00 02/21/20 08:59 01/25/20 08:53 Tamsulosin HCl (Flomax) 0.4 mg BID ORAL 01/21/20 18:00 02/20/20 17:59 01/25/20 08:49 Laboratory Tests 01/25/20 05:42: POC Whole Blood Glucose 119H 01/25/20 06:05: White Blood Count 6.9, Red Blood Count 3.04L, Hemoglobin 9.4L, Hematocrit 29.5L, Mean Corpuscular Volume 97, Mean Corpuscular Hemoglobin 31.0, Mean Corpuscular Hemoglobin Concent 31.9L, Red Cell Distribution Width 15.8H, Platelet Count 162, Mean Platelet Volume 5.7L, Neutrophils (%) (Auto) 74.2, Lymphocytes (%) (Auto) 15.9L, Monocytes (%) (Auto) 7.3, Eosinophils (%) (Auto) 1.3, Basophils (%) (Auto) 1.3, Sodium Level 136, Potassium Level 4.0, Chloride Level 104, Carbon Dioxide Level 21, Anion Gap 11, Blood Urea Nitrogen 42H, Creatinine 4.9H, Estimat Glomerular Filtration Rate 12.0, Glucose Level 120H, Uric Acid 5.7, Calcium Level 7.9L, Phosphorus Level 4.0, Magnesium Level 1.8, Total Bilirubin 0.4, Aspartate Amino Transf (AST/SGOT) 16, Alanine Aminotransferase (ALT/SGPT) 6L, Alkaline Phosphatase 118H, C-Reactive Protein, Quantitative 9.3H, Pro-B-Type Natriuretic Peptide [id number], Total Protein 6.0L, Albumin 1.8L, Globulin 4.2, Albumin/Globulin Ratio 0.4L Height (Feet): 5 Height (Inches): 5.00 Weight (Pounds): 110 General Appearance: no apparent distress Respiratory/Chest: decreased breath sounds Abdomen: soft Objective No change Orlin Berrios MD Jan 25, 2020 10:37
[2020-01-25] MEDS: Linezolid 600mg/300mL Premix IVPB SCH ×2 (10:43→22:02)
--- NOTE | 2020-01-25 11:00 | Infectious Diseases Prog Note ---
Assessment/Plan Assessment/Plan antibiotics : linezolid, ceftriaxone A 1. gram positive sepsis 2. pneumonia 2. diabetes mellitus 4. hypertension 5. renal failure on HD 6. VRE UTI P 1. linezolid started 2. d/c iv vancomycin 3. continue ceftriaxone 4. will follow up cultures 5. consider removal of right subclavian catheter Subjective Constitutional: Denies: fever, chills Respiratory: Denies: shortness of breath, dry cough Gastrointestinal/Abdominal: Reports: diarrhea - decreased; Denies: nausea, vomiting Musculoskeletal: Denies: pain Allergies: Coded Allergies: No Known Allergies (Unverified , 04/21/18) Objective Last 24 Hour Vital Signs Date Time Temp Pulse Resp B/P (MAP) Pulse Ox O2 Delivery O2 Flow Rate FiO2 01/25/20 08:53 72 115/55 01/25/20 08:45 97.2 72 17 115/55 (75) 97 01/25/20 04:00 98.6 84 18 147/78 (101) 97 01/25/20 00:00 98.0 79 18 141/75 (97) 98 01/24/20 20:44 97.7 72 18 138/63 (88) 95 01/24/20 20:17 Room Air 01/24/20 16:00 98.3 74 19 122/76 (91) 97 01/24/20 12:00 97.3 73 18 147/75 (99) 98 Height (Feet): 5 Height (Inches): 5.00 Weight (Pounds): 110 Respiratory/Chest: lungs clear Cardiovascular: normal rate, regular rhythm, no gallop/murmur Abdomen: soft, non tender Extremities: no edema, other - right subclavian catheter Microbiology Date/Time Source Procedure Growth Status 01/23/20 14:00 Nasopharynx SARS-CoV-2 RdRp Gene Assay - Final Complete Laboratory Tests Test 01/25/20 05:42 01/25/20 06:05 POC Whole Blood Glucose 119 MG/DL (74-106) H White Blood Count 6.9 K/UL (4.8-10.8) Red Blood Count 3.04 M/UL (4.70-6.10) L Hemoglobin 9.4 G/DL (14.2-18.0) L Hematocrit 29.5 % (42.0-52.0) L Mean Corpuscular Volume 97 FL (80-99) Mean Corpuscular Hemoglobin 31.0 PG (27.0-31.0) Mean Corpuscular Hemoglobin Concent 31.9 G/DL (32.0-36.0) L Red Cell Distribution Width 15.8 % (11.6-14.8) H Platelet Count 162 K/UL (150-450) Mean Platelet Volume 5.7 FL (6.5-10.1) L Neutrophils (%) (Auto) 74.2 % (45.0-75.0) Lymphocytes (%) (Auto) 15.9 % (20.0-45.0) L Monocytes (%) (Auto) 7.3 % (1.0-10.0) Eosinophils (%) (Auto) 1.3 % (0.0-3.0) Basophils (%) (Auto) 1.3 % (0.0-2.0) Sodium Level 136 MMOL/L (136-145) Potassium Level 4.0 MMOL/L (3.5-5.1) Chloride Level 104 MMOL/L (98-107) Carbon Dioxide Level 21 MMOL/L (21-32) Anion Gap 11 mmol/L (5-15) Blood Urea Nitrogen 42 mg/dL (7-18) H Creatinine 4.9 MG/DL (0.55-1.30) H Estimat Glomerular Filtration Rate 12.0 mL/min (>60) Glucose Level 120 MG/DL (74-106) H Uric Acid 5.7 MG/DL (2.6-7.2) Calcium Level 7.9 MG/DL (8.5-10.1) L Phosphorus Level 4.0 MG/DL (2.5-4.9) Magnesium Level 1.8 MG/DL (1.8-2.4) Total Bilirubin 0.4 MG/DL (0.2-1.0) Aspartate Amino Transf (AST/SGOT) 16 U/L (15-37) Alanine Aminotransferase (ALT/SGPT) 6 U/L (12-78) L Alkaline Phosphatase 118 U/L (46-116) H C-Reactive Protein, Quantitative 9.3 mg/dL (0.00-0.90) H Pro-B-Type Natriuretic Peptide 29345 pg/mL (0-125) H Total Protein 6.0 G/DL (6.4-8.2) L Albumin 1.8 G/DL (3.4-5.0) L Globulin 4.2 g/dL Albumin/Globulin Ratio 0.4 (1.0-2.7) L Current Medications Medications (Trade) Dose Ordered Sig/Jamal Route PRN Reason Start Time Stop Time Status Last Admin Dose Admin Acetaminophen (Tylenol) 650 mg Q6H PRN ORAL For Pain 3-6 / Fever >100.5 01/21/20 12:00 02/20/20 11:59 01/22/20 22:25 Amlodipine Besylate (Norvasc) 2.5 mg DAILY ORAL 01/22/20 09:00 02/21/20 08:59 01/25/20 08:53 Ceftriaxone Sodium 1 gm/ Dextrose 55 ml @ 110 mls/hr Q24H IVPB 01/24/20 15:00 01/31/20 14:59 01/24/20 15:36 Dextrose (Dextrose 50%) 25 ml Q30M PRN IV Hypoglycemia 01/21/20 12:00 04/20/20 11:59 Dextrose (Dextrose 50%) 50 ml Q30M PRN IV Hypoglycemia 01/21/20 12:00 04/20/20 11:59 Epoetin Andre (Epoetin Andre(ESRD on dialysis)) 10,000 unit THU-THU-THU SUBQ 01/23/20 21:00 04/22/20 20:59 01/24/20 01:09 Folic Acid (Folate) 5 mg DAILY ORAL 01/22/20 11:00 02/21/20 10:59 01/25/20 08:51 Linezolid 300 ml @ 300 mls/hr Q12HR IVPB 01/24/20 17:00 01/31/20 16:59 01/25/20 10:43 Lisinopril (ZestriL) 10 mg DAILY ORAL 01/22/20 09:00 02/21/20 08:59 01/24/20 08:51 Loperamide HCl (Imodium) 2 mg TIDPRN PRN ORAL Diarrhea 01/23/20 09:45 02/22/20 09:44 01/25/20 08:55 Ondansetron HCl (Zofran) 4 mg Q6H PRN IVP Nausea & Vomiting 01/21/20 12:00 12/7/20 11:59 Pantoprazole (Protonix) 40 mg DAILY ORAL 01/22/20 09:00 02/21/20 08:59 01/25/20 08:53 Tamsulosin HCl (Flomax) 0.4 mg BID ORAL 01/21/20 18:00 02/20/20 17:59 01/25/20 08:49 Paolo Napier MD Jan 25, 2020 11:00
[2020-01-25 12:00] VITALS: BP 119/60
[2020-01-25] MEDS: Lisinopril 10mg tab ORAL SCH (13:11)
[2020-01-25] MEDS: cefTRIAXone 1 GM in D5W 55 ML IVPB SCH (15:09)
[2020-01-25 16:00] VITALS: BP 129/66
[2020-01-25 20:00] VITALS: BP 128/63
[2020-01-25] MEDS: Epoetin Alfa-EPBX(ESRD on dialysis)10,000 unit/ml vial SUBQ SCH (22:02)
[2020-01-26] VITALS: BP 121/65
[2020-01-26 04:00] VITALS: BP 131/67
[2020-01-26 08:00] VITALS: BP 108/51
--- NOTE | 2020-01-26 08:47 | Nephrology Progress Note ---
Assessment/Plan Problem List: (1) Hyperkalemia (2) JONA (acute kidney injury) (3) Failure to thrive in adult (4) Anemia (5) Malnutrition Assessment: BMI 18.3 Assessment 1) JONA (acute kidney injury) (2) Hyperkalemia (3) Anemia (4) Metabolic acidosis (5) Ureter obstruction (6) Failure to thrive, BMI 18 Plan January 25: Status quo. Due for dialysis today. Continue current management. January 24: Status quo. Dialysis tomorrow. Waiting for outpatient dialysis unit placement. January 23: Patient doing well. Labs reviewed. No blood work is available for today. Medication list reviewed. Will continue to dialysis as needed. Process of discharge and outpatient dialysis unit placement. January 22: Dialyzed yesterday. Today's labs reviewed. Medications reviewed. Outpatient dialysis unit placement to be processed. January 21: More Kayexalate for hyperkalemia. Due for dialysis today. Renal diet. Keep the blood pressure in check. Patient advised to be compliant through a silver holloware assembler. Folic acid p.o. initiated Subjective ROS Limited/Unobtainable: No Objective Objective Last 24 Hour Vital Signs Date Time Temp Pulse Resp B/P (MAP) Pulse Ox O2 Delivery O2 Flow Rate FiO2 01/26/20 04:00 97.9 66 16 131/67 (88) 98 01/26/20 00:00 97.7 75 17 121/65 (83) 99 01/25/20 21:00 Room Air 01/25/20 20:00 97.9 72 17 128/63 (84) 98 01/25/20 16:00 97.4 69 17 129/66 (87) 99 01/25/20 13:11 124/60 01/25/20 12:00 97.3 69 18 119/60 (79) 97 01/25/20 08:53 72 115/55 Intake and Output 01/25/20 01/26/20 19:00 07:00 Intake Total 720 ml Output Total 400 ml Balance 720 ml -400 ml Intake Oral 720 ml Output Urine Total 400 ml # Voids 3 # Bowel Movements 3 3 Current Medications Medications (Trade) Dose Ordered Sig/Jamal Route PRN Reason Start Time Stop Time Status Last Admin Dose Admin Acetaminophen (Tylenol) 650 mg Q6H PRN ORAL For Pain 3-6 / Fever >100.5 01/21/20 12:00 02/20/20 11:59 01/25/20 19:09 Amlodipine Besylate (Norvasc) 2.5 mg DAILY ORAL 01/22/20 09:00 02/21/20 08:59 01/25/20 08:53 Ceftriaxone Sodium 1 gm/ Dextrose 55 ml @ 110 mls/hr Q24H IVPB 01/24/20 15:00 01/31/20 14:59 01/25/20 15:09 Dextrose (Dextrose 50%) 25 ml Q30M PRN IV Hypoglycemia 01/21/20 12:00 04/20/20 11:59 Dextrose (Dextrose 50%) 50 ml Q30M PRN IV Hypoglycemia 01/21/20 12:00 04/20/20 11:59 Epoetin Andre (Epoetin Andre(ESRD on dialysis)) 10,000 unit SUBQ 01/23/20 21:00 04/22/20 20:59 01/25/20 22:02 Folic Acid (Folate) 5 mg DAILY ORAL 01/22/20 11:00 02/21/20 10:59 01/25/20 08:51 Linezolid 300 ml @ 300 mls/hr Q12HR IVPB 01/24/20 17:00 01/31/20 16:59 01/25/20 22:02 Lisinopril (ZestriL) 10 mg DAILY ORAL 01/22/20 09:00 02/21/20 08:59 01/25/20 13:11 Loperamide HCl (Imodium) 2 mg TIDPRN PRN ORAL Diarrhea 01/23/20 09:45 02/22/20 09:44 01/25/20 08:55 Ondansetron HCl (Zofran) 4 mg Q6H PRN IVP Nausea & Vomiting 01/21/20 12:00 02/20/20 11:59 Pantoprazole (Protonix) 40 mg DAILY ORAL 01/22/20 09:00 02/21/20 08:59 01/25/20 08:53 Tamsulosin HCl (Flomax) 0.4 mg BID ORAL 01/21/20 18:00 02/20/20 17:59 01/25/20 19:03 Laboratory Tests 01/26/20 00:58: POC Whole Blood Glucose 144H 01/26/20 06:37: POC Whole Blood Glucose 87 Height (Feet): 5 Height (Inches): 5.00 Weight (Pounds): 110 General Appearance: no apparent distress Objective No change Orlin Berrios MD Jan 26, 2020 08:47
[2020-01-26] MEDS: Lisinopril 10mg tab ORAL SCH (09:00)
--- NOTE | 2020-01-26 09:04 | Pulmonology Progress Note ---
Subjective ROS Limited/Unobtainable: No Interval Events: None new Constitutional: Denies: fever, chills HEENT: Repors: no symptoms Respiratory: Reports: no symptoms Cardiovascular: Reports: no symptoms Gastrointestinal/Abdominal: Reports: diarrhea - decreased; Denies: nausea, vomiting Musculoskeletal: Denies: pain Allergies: Coded Allergies: No Known Allergies (Unverified , 04/21/18) Objective Last 24 Hour Vital Signs Date Time Temp Pulse Resp B/P (MAP) Pulse Ox O2 Delivery O2 Flow Rate FiO2 01/26/20 04:00 97.9 66 16 131/67 (88) 98 01/26/20 00:00 97.7 75 17 121/65 (83) 99 01/25/20 21:00 Room Air 01/25/20 20:00 97.9 72 17 128/63 (84) 98 01/25/20 16:00 97.4 69 17 129/66 (87) 99 01/25/20 13:11 124/60 01/25/20 12:00 97.3 69 18 119/60 (79) 97 Intake and Output 01/25/20 01/26/20 19:00 07:00 Intake Total 720 ml Output Total 400 ml Balance 720 ml -400 ml Intake Oral 720 ml Output Urine Total 400 ml # Voids 3 # Bowel Movements 3 3 General Appearance: no acute distress HEENT: normocephalic Respiratory: chest wall non-tender, lungs clear Cardiovascular: normal peripheral pulses, normal rate Abdomen: normal bowel sounds, soft, non tender Extremities: no cyanosis Microbiology Date/Time Source Procedure Growth Status 01/23/20 14:00 Nasopharynx SARS-CoV-2 RdRp Gene Assay - Final Complete Laboratory Tests 01/26/20 00:58: POC Whole Blood Glucose 144H 01/26/20 06:37: POC Whole Blood Glucose 87 Current Medications Medications (Trade) Dose Ordered Sig/Jamal Route PRN Reason Start Time Stop Time Status Last Admin Dose Admin Acetaminophen (Tylenol) 650 mg Q6H PRN ORAL For Pain 3-6 / Fever >100.5 01/21/20 12:00 02/20/20 11:59 01/25/20 19:09 Amlodipine Besylate (Norvasc) 2.5 mg DAILY ORAL 01/22/20 09:00 02/21/20 08:59 01/25/20 08:53 Ceftriaxone Sodium 1 gm/ Dextrose 55 ml @ 110 mls/hr Q24H IVPB 01/24/20 15:00 01/31/20 14:59 01/25/20 15:09 Dextrose (Dextrose 50%) 25 ml Q30M PRN IV Hypoglycemia 01/21/20 12:00 04/20/20 11:59 Dextrose (Dextrose 50%) 50 ml Q30M PRN IV Hypoglycemia 01/21/20 12:00 04/20/20 11:59 Epoetin Andre (Epoetin Andre(ESRD on dialysis)) 10,000 unit THU- SUBQ 01/23/20 21:00 04/22/20 20:59 01/25/20 22:02 Folic Acid (Folate) 5 mg DAILY ORAL 01/22/20 11:00 02/21/20 10:59 01/25/20 08:51 Linezolid 300 ml @ 300 mls/hr Q12HR IVPB 01/24/20 17:00 01/31/20 16:59 01/25/20 22:02 Lisinopril (ZestriL) 10 mg DAILY ORAL 01/22/20 09:00 02/21/20 08:59 01/25/20 13:11 Loperamide HCl (Imodium) 2 mg TIDPRN PRN ORAL Diarrhea 01/23/20 09:45 02/22/20 09:44 01/25/20 08:55 Ondansetron HCl (Zofran) 4 mg Q6H PRN IVP Nausea & Vomiting 01/21/20 12:00 02/20/20 11:59 Pantoprazole (Protonix) 40 mg DAILY ORAL 01/22/20 09:00 02/21/20 08:59 01/25/20 08:53 Tamsulosin HCl (Flomax) 0.4 mg BID ORAL 01/21/20 18:00 02/20/20 17:59 01/25/20 19:03 Assessment/Plan Assessment/Plan IMPRESSION: 1. Mild pulmonary edema. 2. Hyperkalemia. 3. ESRD, on dialysis. 4. Hypertension. 5. Toxic-metabolic encephalopathy. DISCUSSION: The patient is confused and is not able to care for himself. He likely will need to be placed in a facility and be cared for dialysis. Continue oxygen prn only; currently on RA I will follow. Nataliya Mclaughlin Omar Syed MD Jan 26, 2020 09:04
[2020-01-26] MEDS: Tamsulosin 0.4mg cap ORAL SCH ×2 (09:33→17:20)
[2020-01-26] MEDS: Linezolid 600mg/300mL Premix IVPB SCH ×2 (10:51→21:56)
[2020-01-26 12:00] VITALS: BP 112/59
--- NOTE | 2020-01-26 12:49 | Infectious Diseases Prog Note ---
Assessment/Plan Assessment/Plan A 1. VRE sepsis 2. pneumonia 2. diabetes mellitus 4. hypertension 5. renal failure on HD 6. VRE UTI 7. Anemia P 1. Continue linezolid & ceftriaxone 2. will follow up cultures 3. consider removal of right subclavian catheter Subjective ROS Limited/Unobtainable: No Constitutional: Reports: no symptoms Respiratory: Reports: no symptoms Cardiovascular: Reports: no symptoms Gastrointestinal/Abdominal: Reports: no symptoms Genitourinary: Reports: no symptoms Allergies: Coded Allergies: No Known Allergies (Unverified , 04/21/18) Objective Last 24 Hour Vital Signs Date Time Temp Pulse Resp B/P (MAP) Pulse Ox O2 Delivery O2 Flow Rate FiO2 01/26/20 09:00 64 108/51 01/26/20 09:00 108/51 01/26/20 08:00 97.9 64 16 108/51 (70) 97 01/26/20 04:00 97.9 66 16 131/67 (88) 98 01/26/20 00:00 97.7 75 17 121/65 (83) 99 01/25/20 21:00 Room Air 01/25/20 20:00 97.9 72 17 128/63 (84) 98 01/25/20 16:00 97.4 69 17 129/66 (87) 99 01/25/20 13:11 124/60 Height (Feet): 5 Height (Inches): 5.00 Weight (Pounds): 110 General Appearance: cachetic HEENT: mucous membranes moist Respiratory/Chest: lungs clear Cardiovascular: normal rate, other - R Permacath Abdomen: soft, non tender Extremities: no edema Neurologic/Psychiatric: alert, oriented x 3, responsive Musculoskeletal: atrophy Microbiology Date/Time Source Procedure Growth Status 01/23/20 14:00 Nasopharynx SARS-CoV-2 RdRp Gene Assay - Final Complete Laboratory Tests Test 01/26/20 00:58 01/26/20 06:37 01/26/20 12:45 POC Whole Blood Glucose 144 MG/DL (74-106) H 87 MG/DL (74-106) Pending Current Medications Medications (Trade) Dose Ordered Sig/Jamal Route PRN Reason Start Time Stop Time Status Last Admin Dose Admin Acetaminophen (Tylenol) 650 mg Q6H PRN ORAL For Pain 3-6 / Fever >100.5 01/21/20 12:00 02/20/20 11:59 01/25/20 19:09 Amlodipine Besylate (Norvasc) 2.5 mg DAILY ORAL 01/22/20 09:00 02/21/20 08:59 01/25/20 08:53 Ceftriaxone Sodium 1 gm/ Dextrose 55 ml @ 110 mls/hr Q24H IVPB 01/24/20 15:00 01/31/20 14:59 01/25/20 15:09 Dextrose (Dextrose 50%) 25 ml Q30M PRN IV Hypoglycemia 01/21/20 12:00 04/20/20 11:59 Dextrose (Dextrose 50%) 50 ml Q30M PRN IV Hypoglycemia 01/21/20 12:00 04/20/20 11:59 Epoetin Andre (Epoetin Andre(ESRD on dialysis)) 10,000 unit SUBQ 01/23/20 21:00 04/22/20 20:59 01/25/20 22:02 Folic Acid (Folate) 5 mg DAILY ORAL 01/22/20 11:00 02/21/20 10:59 01/26/20 09:33 Linezolid 300 ml @ 300 mls/hr Q12HR IVPB 01/24/20 17:00 01/31/20 16:59 01/26/20 10:51 Lisinopril (ZestriL) 10 mg DAILY ORAL 01/22/20 09:00 02/21/20 08:59 01/25/20 13:11 Loperamide HCl (Imodium) 2 mg TIDPRN PRN ORAL Diarrhea 01/23/20 09:45 02/22/20 09:44 01/25/20 08:55 Ondansetron HCl (Zofran) 4 mg Q6H PRN IVP Nausea & Vomiting 01/21/20 12:00 02/20/20 11:59 Pantoprazole (Protonix) 40 mg DAILY ORAL 01/22/20 09:00 02/21/20 08:59 01/26/20 09:34 Tamsulosin HCl (Flomax) 0.4 mg BID ORAL 01/21/20 18:00 02/20/20 17:59 01/26/20 09:33 Thai Hale MD Jan 26, 2020 12:49
[2020-01-26 16:00] VITALS: BP 119/65
--- NOTE | 2020-01-26 16:42 | General Progress Note ---
Subjective Allergies: Coded Allergies: No Known Allergies (Unverified , 04/21/18) Subjective doing ok weakness Objective Last 24 Hour Vital Signs Date Time Temp Pulse Resp B/P (MAP) Pulse Ox O2 Delivery O2 Flow Rate FiO2 01/26/20 16:00 97.4 72 17 119/65 (83) 98 01/26/20 12:00 97.9 68 17 112/59 (76) 97 01/26/20 09:00 64 108/51 01/26/20 09:00 108/51 01/26/20 08:00 97.9 64 16 108/51 (70) 97 01/26/20 04:00 97.9 66 16 131/67 (88) 98 01/26/20 00:00 97.7 75 17 121/65 (83) 99 01/25/20 21:00 Room Air 01/25/20 20:00 97.9 72 17 128/63 (84) 98 Intake and Output 01/25/20 01/26/20 19:00 07:00 Intake Total 720 ml Output Total 400 ml Balance 720 ml -400 ml Intake Oral 720 ml Output Urine Total 400 ml # Voids 3 # Bowel Movements 3 3 Laboratory Tests 01/25/20 17:21: POC Whole Blood Glucose 193H 01/26/20 00:58: POC Whole Blood Glucose 144H 01/26/20 06:37: POC Whole Blood Glucose 87 01/26/20 12:45: POC Whole Blood Glucose 186H Height (Feet): 5 Height (Inches): 5.00 Weight (Pounds): 110 EENT: PERRL/EOMI Neck: supple Cardiovascular: regular rhythm Respiratory/Chest: lungs clear Abdomen: non tender, soft Skin: warm/dry Assessment/Plan Assessment/Plan: 1 sepsis 2 diarrea 3 dm 2 4 esrdon hd 5 htn 6 weakness 7 bactremia id consult dc macrobid dc plan to snf waiting for covid test Kamron Phelan cm, MD Jan 26, 2020 16:42
[2020-01-26] MEDS: cefTRIAXone 1 GM in D5W 55 ML IVPB SCH (16:43)
[2020-01-26 20:00] VITALS: BP 123/66
--- NOTE | 2020-01-26 22:30 | CDS Physician Query ---
Clarification is required for compliance, coding accuracy, and to reflect severity of illness for this patient. Dear Dr. Kamron Allan MD. Date: 01/26/20 CDI/CDS Name: Hammad Humphrey Clinical Documentation Statement: 64 years old hm readmitted after signing ama . pt went home byhimself . pt stated has pain hernan leg and fall and unable to walk. pt has been mild -moderate sob since yesterday. [ H&P Herb Hale M.D. 12/08/19] IMPRESSION: 1. Mild pulmonary edema. 2. Hyperkalemia. 3. ESRD, on dialysis. 4. Hypertension. 5. Encephalopathy. NUTRITION DIAGNOSIS: * Increased kcal/prot needs R/T underweight status, ESRD, wound healing as evidenced by pt @76% IBW w/ BMI of 17.3, HD dependent, admitted w/ wounds @ sacrum, lt heel, and BL trochanter, pending eval. Clinical Finding Show: BMI: 18.3kg/m2 LAB: Chem: Albumin (01/21) : 2.0 [3.4-5.0] Albumin (01.22) : 1.8 [3.4-5.0] Medication: Dextrose 50ml IV Malnutrition has been documented in this medical record. In order to accurately code this and to reflect the appropriate severity of ilness, please clarify diagnosis. [] Mild Malnutrition [] Moderate Malnutrition [] Severe Malnutrition [] Unknown degree [] Other: [] Clinically Undetermined Present on Admission: [] Yes [] No [] Clinically Undetermined Physician signature Date Please also document in your Progress Notes and/or Discharge Summary and indicate if the condition was present on admission. MTDD
--- NOTE | 2020-01-26 22:59 | CDS Physician Query ---
Clarification is required for compliance, coding accuracy, and to reflect severity of illness for this patient Dear Dr Kamron Allan MD. Date: 01/26/20 CDI/CDS Name: Hammad Humphrey Clinical Documentation Statement: ASSESSMENT: This is a 64-year-old gentleman with history of diabetes, hypertension, renal failure, on dialysis, who comes in with shortness of breath and is found to have: 1. Gram-positive sepsis, would be concerned regarding bacterial pneumonia. 2. We would like to rule out endocarditis as a possibility. 3. Streptococcus urinary tract infection. 4. Pneumonia. 5. Diabetes. 6. Hypertension. 7. Renal failure. 8. Rule out COVID-19 pneumonia. XR Chest, 1 View IMPRESSION: Patchy reticular airspace disease most notably in the mid lower lung zones raising concern for possible atypical pneumonias. Please specify the underlying etiology: [] Gram +Positive Organism(s) [] Anaerobes [] Gram -Negative Organism(s) [] Aspiration [] Pseudomonas [] Mycoplasma [] MRSA [] Not Applicable [] Other organism(s). Please specify: Present on Admission: [] Yes [] No [] Clinically Undetermined Physician signature Date Please also document in your Progress Notes and/or Discharge Summary and indicate if the condition was present on admission. MTDD
[2020-01-27] VITALS: BP 129/69
[2020-01-27 04:00] VITALS: BP 132/72
[2020-01-27 06:01] LABS: BASOPHILS % (AUTO) 2.2 % (0.0-2.0); EOSINOPHILS % (AUTO) 1.6 % (0.0-3.0); HEMATOCRIT 27.5 % (42.0-52.0); HEMOGLOBIN 8.9 G/DL (14.2-18.0); LYMPHOCYTES % (AUTO) 20.2 % (20.0-45.0); MEAN CORPUSCULAR VOLUME 97 FL (80-99); MONOCYTES % (AUTO) 7.6 % (1.0-10.0); NEUTROPHILS % (AUTO) 68.4 % (45.0-75.0); PLATELET COUNT 192 K/UL (150-450); RED BLOOD COUNT 2.83 M/UL (4.70-6.10); WHITE BLOOD COUNT 5.4 K/UL (4.8-10.8)
[2020-01-27 06:55] LABS: ALBUMIN 1.7 G/DL (3.4-5.0); ALBUMIN/GLOBULIN RATIO 0.4 (1.0-2.7); BILIRUBIN,TOTAL 0.4 MG/DL (0.2-1.0); CREATININE 4.2 MG/DL (0.55-1.30); POTASSIUM 4.2 MMOL/L (3.5-5.1)
[2020-01-27 08:00] VITALS: BP 132/63
[2020-01-27] MEDS: Tamsulosin 0.4mg cap ORAL SCH ×2 (08:44→18:10)
[2020-01-27] MEDS: Linezolid 600mg/300mL Premix IVPB SCH ×2 (08:45→21:22)
--- NOTE | 2020-01-27 09:04 | Nephrology Progress Note ---
Assessment/Plan Problem List: (1) Hyperkalemia (2) JONA (acute kidney injury) (3) Failure to thrive in adult (4) Anemia (5) Malnutrition Assessment: BMI 18.3 Assessment 1) JONA (acute kidney injury) (2) Hyperkalemia (3) Anemia (4) Metabolic acidosis (5) Ureter obstruction (6) Failure to thrive, BMI 18 Plan January 26: Status quo. Was dialyzed yesterday, dialysis again tomorrow. Continue current management. Outpatient dialysis upon discharge. January 25: Status quo. Due for dialysis today. Continue current management. January 24: Status quo. Dialysis tomorrow. Waiting for outpatient dialysis unit placement. January 23: Patient doing well. Labs reviewed. No blood work is available for today. Medication list reviewed. Will continue to dialysis as needed. Process of discharge and outpatient dialysis unit placement. January 22: Dialyzed yesterday. Today's labs reviewed. Medications reviewed. Outpatient dialysis unit placement to be processed. January 21: More Kayexalate for hyperkalemia. Due for dialysis today. Renal diet. Keep the blood pressure in check. Patient advised to be compliant through a air and missile defense crewmember. Folic acid p.o. initiated Subjective ROS Limited/Unobtainable: No Objective Objective Last 24 Hour Vital Signs Date Time Temp Pulse Resp B/P (MAP) Pulse Ox O2 Delivery O2 Flow Rate FiO2 01/27/20 04:00 97.9 75 17 132/72 (92) 98 01/27/20 00:00 98.2 82 18 129/69 (89) 97 01/26/20 21:00 Room Air 01/26/20 20:00 97.2 69 18 123/66 (85) 98 01/26/20 16:00 97.4 72 17 119/65 (83) 98 01/26/20 12:00 97.9 68 17 112/59 (76) 97 Intake and Output 01/26/20 01/27/20 19:00 07:00 Intake Total 650 ml 250 ml Output Total 650 ml Balance 650 ml -400 ml Intake Oral 650 ml 250 ml Output Urine Total 650 ml # Voids 2 # Bowel Movements 2 3 Current Medications Medications (Trade) Dose Ordered Sig/Jamal Route PRN Reason Start Time Stop Time Status Last Admin Dose Admin Acetaminophen (Tylenol) 650 mg Q6H PRN ORAL For Pain 3-6 / Fever >100.5 11/7/20 12:00 02/20/20 11:59 01/25/20 19:09 Amlodipine Besylate (Norvasc) 2.5 mg DAILY ORAL 01/22/20 09:00 02/21/20 08:59 01/25/20 08:53 Ceftriaxone Sodium 1 gm/ Dextrose 55 ml @ 110 mls/hr Q24H IVPB 01/24/20 15:00 01/31/20 14:59 01/26/20 16:43 Dextrose (Dextrose 50%) 25 ml Q30M PRN IV Hypoglycemia 01/21/20 12:00 04/20/20 11:59 Dextrose (Dextrose 50%) 50 ml Q30M PRN IV Hypoglycemia 01/21/20 12:00 04/20/20 11:59 Epoetin Andre (Epoetin Andre(ESRD on dialysis)) 10,000 unit SUBQ 01/23/20 21:00 04/22/20 20:59 01/25/20 22:02 Folic Acid (Folate) 5 mg DAILY ORAL 01/22/20 11:00 02/21/20 10:59 01/27/20 08:45 Linezolid 300 ml @ 300 mls/hr Q12HR IVPB 01/24/20 17:00 01/31/20 16:59 01/27/20 08:45 Lisinopril (ZestriL) 10 mg DAILY ORAL 01/22/20 09:00 02/21/20 08:59 01/25/20 13:11 Loperamide HCl (Imodium) 2 mg TIDPRN PRN ORAL Diarrhea 01/23/20 09:45 02/22/20 09:44 01/26/20 23:10 Ondansetron HCl (Zofran) 4 mg Q6H PRN IVP Nausea & Vomiting 01/21/20 12:00 02/20/20 11:59 Pantoprazole (Protonix) 40 mg DAILY ORAL 01/22/20 09:00 02/21/20 08:59 01/27/20 08:45 Tamsulosin HCl (Flomax) 0.4 mg BID ORAL 01/21/20 18:00 02/20/20 17:59 01/27/20 08:44 Laboratory Tests 01/26/20 12:45: POC Whole Blood Glucose 186H 01/26/20 17:19: POC Whole Blood Glucose 122H 01/27/20 04:35: White Blood Count 5.4, Red Blood Count 2.83L, Hemoglobin 8.9L, Hematocrit 27.5L, Mean Corpuscular Volume 97, Mean Corpuscular Hemoglobin 31.5H, Mean Corpuscular Hemoglobin Concent 32.4, Red Cell Distribution Width 16.0H, Platelet Count 192, Mean Platelet Volume 5.8L, Neutrophils (%) (Auto) 68.4, Lymphocytes (%) (Auto) 20.2, Monocytes (%) (Auto) 7.6, Eosinophils (%) (Auto) 1.6, Basophils (%) (Auto) 2.2H, Sodium Level 136, Potassium Level 4.2, Chloride Level 105, Carbon Dioxide Level 24, Anion Gap 7, Blood Urea Nitrogen 35H, Creatinine 4.2H, Estimat Glomerular Filtration Rate 14.4, Glucose Level 70L, Calcium Level 7.0L, Phosphorus Level 4.0, Magnesium Level 1.7L, Total Bilirubin 0.4, Aspartate Amino Transf (AST/SGOT) 18, Alanine Aminotransferase (ALT/SGPT) 11L, Alkaline Phosphatase 112, C-Reactive Protein, Quantitative 6.0H, Total Protein 5.8L, Albumin 1.7L, Globulin 4.1, Albumin/Globulin Ratio 0.4L Height (Feet): 5 Height (Inches): 5.00 Weight (Pounds): 110 General Appearance: no apparent distress Objective No change Orlin Berrios MD Jan 27, 2020 09:04
--- NOTE | 2020-01-27 09:32 | Pulmonology Progress Note ---
Subjective ROS Limited/Unobtainable: No Interval Events: None new Constitutional: Reports: no symptoms HEENT: Repors: no symptoms Respiratory: Reports: no symptoms Cardiovascular: Reports: no symptoms Gastrointestinal/Abdominal: Reports: no symptoms Musculoskeletal: Denies: pain Allergies: Coded Allergies: No Known Allergies (Unverified , 04/21/18) Objective Last 24 Hour Vital Signs Date Time Temp Pulse Resp B/P (MAP) Pulse Ox O2 Delivery O2 Flow Rate FiO2 01/27/20 04:00 97.9 75 17 132/72 (92) 98 01/27/20 00:00 98.2 82 18 129/69 (89) 97 01/26/20 21:00 Room Air 01/26/20 20:00 97.2 69 18 123/66 (85) 98 01/26/20 16:00 97.4 72 17 119/65 (83) 98 01/26/20 12:00 97.9 68 17 112/59 (76) 97 Intake and Output 01/26/20 01/27/20 19:00 07:00 Intake Total 650 ml 250 ml Output Total 650 ml Balance 650 ml -400 ml Intake Oral 650 ml 250 ml Output Urine Total 650 ml # Voids 2 # Bowel Movements 2 3 General Appearance: no acute distress HEENT: normocephalic Respiratory: chest wall non-tender, lungs clear Cardiovascular: normal peripheral pulses, normal rate Abdomen: normal bowel sounds, soft, non tender Extremities: no cyanosis Laboratory Tests 01/26/20 12:45: POC Whole Blood Glucose 186H 01/26/20 17:19: POC Whole Blood Glucose 122H 01/27/20 04:35: White Blood Count 5.4, Red Blood Count 2.83L, Hemoglobin 8.9L, Hematocrit 27.5L, Mean Corpuscular Volume 97, Mean Corpuscular Hemoglobin 31.5H, Mean Corpuscular Hemoglobin Concent 32.4, Red Cell Distribution Width 16.0H, Platelet Count 192, Mean Platelet Volume 5.8L, Neutrophils (%) (Auto) 68.4, Lymphocytes (%) (Auto) 20.2, Monocytes (%) (Auto) 7.6, Eosinophils (%) (Auto) 1.6, Basophils (%) (Auto) 2.2H, Sodium Level 136, Potassium Level 4.2, Chloride Level 105, Carbon Dioxide Level 24, Anion Gap 7, Blood Urea Nitrogen 35H, Creatinine 4.2H, Estimat Glomerular Filtration Rate 14.4, Glucose Level 70L, Calcium Level 7.0L, Phosphorus Level 4.0, Magnesium Level 1.7L, Total Bilirubin 0.4, Aspartate Amino Transf (AST/SGOT) 18, Alanine Aminotransferase (ALT/SGPT) 11L, Alkaline Phosphatase 112, C-Reactive Protein, Quantitative 6.0H, Total Protein 5.8L, Albumin 1.7L, Globulin 4.1, Albumin/Globulin Ratio 0.4L Current Medications Medications (Trade) Dose Ordered Sig/Jamal Route PRN Reason Start Time Stop Time Status Last Admin Dose Admin Acetaminophen (Tylenol) 650 mg Q6H PRN ORAL For Pain 3-6 / Fever >100.5 01/21/20 12:00 02/20/20 11:59 01/25/20 19:09 Amlodipine Besylate (Norvasc) 2.5 mg DAILY ORAL 01/22/20 09:00 02/21/20 08:59 01/25/20 08:53 Ceftriaxone Sodium 1 gm/ Dextrose 55 ml @ 110 mls/hr Q24H IVPB 01/24/20 15:00 01/31/20 14:59 01/26/20 16:43 Dextrose (Dextrose 50%) 25 ml Q30M PRN IV Hypoglycemia 01/21/20 12:00 04/20/20 11:59 Dextrose (Dextrose 50%) 50 ml Q30M PRN IV Hypoglycemia 01/21/20 12:00 04/20/20 11:59 Epoetin Andre (Epoetin Andre(ESRD on dialysis)) 10,000 unit -THU SUBQ 01/23/20 21:00 04/22/20 20:59 01/25/20 22:02 Folic Acid (Folate) 5 mg DAILY ORAL 01/22/20 11:00 02/21/20 10:59 01/27/20 08:45 Linezolid 300 ml @ 300 mls/hr Q12HR IVPB 01/24/20 17:00 01/31/20 16:59 01/27/20 08:45 Lisinopril (ZestriL) 10 mg DAILY ORAL 01/22/20 09:00 02/21/20 08:59 01/25/20 13:11 Loperamide HCl (Imodium) 2 mg TIDPRN PRN ORAL Diarrhea 01/23/20 09:45 02/22/20 09:44 01/26/20 23:10 Ondansetron HCl (Zofran) 4 mg Q6H PRN IVP Nausea & Vomiting 01/21/20 12:00 02/20/20 11:59 Pantoprazole (Protonix) 40 mg DAILY ORAL 01/22/20 09:00 02/21/20 08:59 01/27/20 08:45 Tamsulosin HCl (Flomax) 0.4 mg BID ORAL 01/21/20 18:00 02/20/20 17:59 01/27/20 08:44 Assessment/Plan Assessment/Plan IMPRESSION: 1. Mild pulmonary edema. 2. Hyperkalemia. 3. ESRD, on dialysis. 4. Hypertension. 5. Toxic-metabolic encephalopathy. DISCUSSION: The patient is confused and is not able to care for himself. He likely will need to be placed in a facility and be cared for dialysis. Continue oxygen prn only; currently on RA I will follow. Nataliya Mclaughlin Omar Syed MD Jan 27, 2020 09:32
--- NOTE | 2020-01-27 11:21 | Infectious Diseases Prog Note ---
Assessment/Plan Assessment/Plan antibiotics : linezolid, ceftriaxone A 1. VRE sepsis 2. pneumonia 2. diabetes mellitus 4. hypertension 5. renal failure on HD 6. VRE UTI P 1. continue linezolid 2. continue ceftriaxone 3 more days 3. blood culture 4. will follow up cultures 5. consider removal of right subclavian catheter Subjective Constitutional: Denies: fever, chills Respiratory: Denies: shortness of breath, dry cough Gastrointestinal/Abdominal: Reports: diarrhea; Denies: nausea, vomiting Musculoskeletal: Denies: pain Allergies: Coded Allergies: No Known Allergies (Unverified , 04/21/18) Objective Last 24 Hour Vital Signs Date Time Temp Pulse Resp B/P (MAP) Pulse Ox O2 Delivery O2 Flow Rate FiO2 01/27/20 08:00 97.5 74 18 132/63 (86) 96 01/27/20 04:00 97.9 75 17 132/72 (92) 98 01/27/20 00:00 98.2 82 18 129/69 (89) 97 01/26/20 21:00 Room Air 01/26/20 20:00 97.2 69 18 123/66 (85) 98 01/26/20 16:00 97.4 72 17 119/65 (83) 98 01/26/20 12:00 97.9 68 17 112/59 (76) 97 Height (Feet): 5 Height (Inches): 5.00 Weight (Pounds): 110 Respiratory/Chest: lungs clear Cardiovascular: normal rate, regular rhythm, no gallop/murmur Abdomen: soft, non tender Extremities: no edema, other - right subclavian catheter Laboratory Tests Test 01/26/20 12:45 01/26/20 17:19 01/27/20 04:35 POC Whole Blood Glucose 186 MG/DL (74-106) H 122 MG/DL (74-106) H White Blood Count 5.4 K/UL (4.8-10.8) Red Blood Count 2.83 M/UL (4.70-6.10) L Hemoglobin 8.9 G/DL (14.2-18.0) L Hematocrit 27.5 % (42.0-52.0) L Mean Corpuscular Volume 97 FL (80-99) Mean Corpuscular Hemoglobin 31.5 PG (27.0-31.0) H Mean Corpuscular Hemoglobin Concent 32.4 G/DL (32.0-36.0) Red Cell Distribution Width 16.0 % (11.6-14.8) H Platelet Count 192 K/UL (150-450) Mean Platelet Volume 5.8 FL (6.5-10.1) L Neutrophils (%) (Auto) 68.4 % (45.0-75.0) Lymphocytes (%) (Auto) 20.2 % (20.0-45.0) Monocytes (%) (Auto) 7.6 % (1.0-10.0) Eosinophils (%) (Auto) 1.6 % (0.0-3.0) Basophils (%) (Auto) 2.2 % (0.0-2.0) H Sodium Level 136 MMOL/L (136-145) Potassium Level 4.2 MMOL/L (3.5-5.1) Chloride Level 105 MMOL/L (98-107) Carbon Dioxide Level 24 MMOL/L (21-32) Anion Gap 7 mmol/L (5-15) Blood Urea Nitrogen 35 mg/dL (7-18) H Creatinine 4.2 MG/DL (0.55-1.30) H Estimat Glomerular Filtration Rate 14.4 mL/min (>60) Glucose Level 70 MG/DL (74-106) L Calcium Level 7.0 MG/DL (8.5-10.1) L Phosphorus Level 4.0 MG/DL (2.5-4.9) Magnesium Level 1.7 MG/DL (1.8-2.4) L Total Bilirubin 0.4 MG/DL (0.2-1.0) Aspartate Amino Transf (AST/SGOT) 18 U/L (15-37) Alanine Aminotransferase (ALT/SGPT) 11 U/L (12-78) L Alkaline Phosphatase 112 U/L (46-116) C-Reactive Protein, Quantitative 6.0 mg/dL (0.00-0.90) H Total Protein 5.8 G/DL (6.4-8.2) L Albumin 1.7 G/DL (3.4-5.0) L Globulin 4.1 g/dL Albumin/Globulin Ratio 0.4 (1.0-2.7) L Current Medications Medications (Trade) Dose Ordered Sig/Jamal Route PRN Reason Start Time Stop Time Status Last Admin Dose Admin Acetaminophen (Tylenol) 650 mg Q6H PRN ORAL For Pain 3-6 / Fever >100.5 01/21/20 12:00 02/20/20 11:59 01/25/20 19:09 Amlodipine Besylate (Norvasc) 2.5 mg DAILY ORAL 01/22/20 09:00 02/21/20 08:59 01/25/20 08:53 Ceftriaxone Sodium 1 gm/ Dextrose 55 ml @ 110 mls/hr Q24H IVPB 01/24/20 15:00 01/31/20 14:59 01/26/20 16:43 Dextrose (Dextrose 50%) 25 ml Q30M PRN IV Hypoglycemia 01/21/20 12:00 04/20/20 11:59 Dextrose (Dextrose 50%) 50 ml Q30M PRN IV Hypoglycemia 01/21/20 12:00 04/20/20 11:59 Epoetin Andre (Epoetin Andre(ESRD on dialysis)) 10,000 unit THU- SUBQ 01/23/20 21:00 04/22/20 20:59 01/25/20 22:02 Folic Acid (Folate) 5 mg DAILY ORAL 01/22/20 11:00 02/21/20 10:59 01/27/20 08:45 Linezolid 300 ml @ 300 mls/hr Q12HR IVPB 01/24/20 17:00 01/31/20 16:59 01/27/20 08:45 Lisinopril (ZestriL) 10 mg DAILY ORAL 01/22/20 09:00 02/21/20 08:59 01/25/20 13:11 Loperamide HCl (Imodium) 2 mg TIDPRN PRN ORAL Diarrhea 01/23/20 09:45 02/22/20 09:44 01/26/20 23:10 Ondansetron HCl (Zofran) 4 mg Q6H PRN IVP Nausea & Vomiting 01/21/20 12:00 02/20/20 11:59 Pantoprazole (Protonix) 40 mg DAILY ORAL 01/22/20 09:00 02/21/20 08:59 01/27/20 08:45 Tamsulosin HCl (Flomax) 0.4 mg BID ORAL 01/21/20 18:00 02/20/20 17:59 01/27/20 08:44 Paolo Napier MD Jan 27, 2020 11:21
[2020-01-27] MEDS: Lisinopril 10mg tab ORAL SCH (11:31)
[2020-01-27 12:00] VITALS: BP 129/72
--- NOTE | 2020-01-27 15:36 | General Progress Note ---
Subjective Allergies: Coded Allergies: No Known Allergies (Unverified , 04/21/18) Subjective doing ok weakness Objective Last 24 Hour Vital Signs Date Time Temp Pulse Resp B/P (MAP) Pulse Ox O2 Delivery O2 Flow Rate FiO2 01/27/20 12:00 97.6 81 17 129/72 (91) 97 01/27/20 11:31 74 132/63 01/27/20 11:31 132/63 01/27/20 08:00 97.5 74 18 132/63 (86) 96 01/27/20 04:00 97.9 75 17 132/72 (92) 98 01/27/20 00:00 98.2 82 18 129/69 (89) 97 01/26/20 21:00 Room Air 01/26/20 20:00 97.2 69 18 123/66 (85) 98 01/26/20 16:00 97.4 72 17 119/65 (83) 98 Intake and Output 01/26/20 01/27/20 19:00 07:00 Intake Total 650 ml 250 ml Output Total 650 ml Balance 650 ml -400 ml Intake Oral 650 ml 250 ml Output Urine Total 650 ml # Voids 2 # Bowel Movements 2 3 Laboratory Tests 01/26/20 17:19: POC Whole Blood Glucose 122H 01/27/20 04:35: White Blood Count 5.4, Red Blood Count 2.83L, Hemoglobin 8.9L, Hematocrit 27.5L, Mean Corpuscular Volume 97, Mean Corpuscular Hemoglobin 31.5H, Mean Corpuscular Hemoglobin Concent 32.4, Red Cell Distribution Width 16.0H, Platelet Count 192, Mean Platelet Volume 5.8L, Neutrophils (%) (Auto) 68.4, Lymphocytes (%) (Auto) 20.2, Monocytes (%) (Auto) 7.6, Eosinophils (%) (Auto) 1.6, Basophils (%) (Auto) 2.2H, Sodium Level 136, Potassium Level 4.2, Chloride Level 105, Carbon Dioxide Level 24, Anion Gap 7, Blood Urea Nitrogen 35H, Creatinine 4.2H, Estimat Glomerular Filtration Rate 14.4, Glucose Level 70L, Calcium Level 7.0L, Phosphorus Level 4.0, Magnesium Level 1.7L, Total Bilirubin 0.4, Aspartate Amino Transf (AST/SGOT) 18, Alanine Aminotransferase (ALT/SGPT) 11L, Alkaline Phosphatase 112, C-Reactive Protein, Quantitative 6.0H, Total Protein 5.8L, Albumin 1.7L, Globulin 4.1, Albumin/Globulin Ratio 0.4L 01/27/20 11:39: POC Whole Blood Glucose 192H Height (Feet): 5 Height (Inches): 5.00 Weight (Pounds): 110 General Appearance: alert EENT: PERRL/EOMI Neck: supple Cardiovascular: regular rhythm Respiratory/Chest: lungs clear Abdomen: non tender, soft Assessment/Plan Assessment/Plan: 1 sepsis 2 diarrea 3 dm 2 4 esrdon hd 5 htn 6 weakness 7 bactremia id consult dc macrobid dc plan to snf waiting for covid test Kamron Phelan cm, MD Jan 27, 2020 15:36
[2020-01-27] MEDS: cefTRIAXone 1 GM in D5W 55 ML IVPB SCH (15:38)
[2020-01-27 16:00] VITALS: BP 125/79
[2020-01-27 20:00] VITALS: BP 139/69
[2020-01-27] MEDS: Epoetin Alfa-EPBX(ESRD on dialysis)10,000 unit/ml vial SUBQ SCH (21:23)
[2020-01-28] VITALS (7 sets, daily range): BP systolic 120–149; BP diastolic 67–75
[2020-01-28] MEDS: Tamsulosin 0.4mg cap ORAL SCH ×2 (08:23→17:13)
[2020-01-28] MEDS: Linezolid 600mg/300mL Premix IVPB SCH ×2 (08:27→20:01)
[2020-01-28] MEDS: Lisinopril 10mg tab ORAL SCH (08:28)
--- NOTE | 2020-01-28 11:57 | Pulmonology Progress Note ---
Subjective ROS Limited/Unobtainable: No Interval Events: None new Constitutional: Denies: fever, chills HEENT: Repors: no symptoms Respiratory: Reports: no symptoms Cardiovascular: Reports: no symptoms Gastrointestinal/Abdominal: Reports: diarrhea; Denies: nausea, vomiting Musculoskeletal: Denies: pain Allergies: Coded Allergies: No Known Allergies (Unverified , 04/21/18) Objective Last 24 Hour Vital Signs Date Time Temp Pulse Resp B/P (MAP) Pulse Ox O2 Delivery O2 Flow Rate FiO2 01/28/20 08:00 96.3 71 19 120/67 (84) 97 01/28/20 04:00 97.2 75 17 131/75 (93) 98 01/28/20 00:00 97.4 73 16 129/72 (91) 99 01/27/20 20:20 Room Air 01/27/20 20:00 97.8 75 14 139/69 (92) 99 01/27/20 16:00 97.6 79 18 125/79 (94) 99 01/27/20 12:00 97.6 81 17 129/72 (91) 97 Intake and Output 01/27/20 01/28/20 19:00 07:00 Intake Total 800 ml 260 ml Output Total 4 ml 350 ml Balance 796 ml -90 ml Intake Oral 200 ml 260 ml Other 600 ml Output Urine Total 350 ml Stool Total 4 ml # Voids 2 # Bowel Movements 2 3 General Appearance: no acute distress HEENT: normocephalic Respiratory: chest wall non-tender, lungs clear Cardiovascular: normal peripheral pulses, normal rate Abdomen: normal bowel sounds, soft, non tender Extremities: no cyanosis Laboratory Tests 01/27/20 18:18: POC Whole Blood Glucose [Pending] Current Medications Medications (Trade) Dose Ordered Sig/Jamal Route PRN Reason Start Time Stop Time Status Last Admin Dose Admin Acetaminophen (Tylenol) 650 mg Q6H PRN ORAL For Pain 3-6 / Fever >100.5 01/21/20 12:00 02/20/20 11:59 01/25/20 19:09 Amlodipine Besylate (Norvasc) 2.5 mg DAILY ORAL 01/22/20 09:00 02/21/20 08:59 01/27/20 11:31 Ceftriaxone Sodium 1 gm/ Dextrose 55 ml @ 110 mls/hr Q24H IVPB 01/24/20 15:00 01/31/20 14:59 01/27/20 15:38 Dextrose (Dextrose 50%) 25 ml Q30M PRN IV Hypoglycemia 01/21/20 12:00 04/20/20 11:59 Dextrose (Dextrose 50%) 50 ml Q30M PRN IV Hypoglycemia 01/21/20 12:00 04/20/20 11:59 Epoetin Andre (Epoetin Andre(ESRD on dialysis)) 10,000 unit SUBQ 01/23/20 21:00 04/22/20 20:59 01/27/20 21:23 Folic Acid (Folate) 5 mg DAILY ORAL 01/22/20 11:00 02/21/20 10:59 01/28/20 08:24 Linezolid 300 ml @ 300 mls/hr Q12HR IVPB 01/24/20 17:00 01/31/20 16:59 01/28/20 08:27 Lisinopril (ZestriL) 10 mg DAILY ORAL 01/22/20 09:00 02/21/20 08:59 01/27/20 11:31 Loperamide HCl (Imodium) 2 mg TIDPRN PRN ORAL Diarrhea 01/23/20 09:45 02/22/20 09:44 01/27/20 20:08 Ondansetron HCl (Zofran) 4 mg Q6H PRN IVP Nausea & Vomiting 01/21/20 12:00 02/20/20 11:59 Pantoprazole (Protonix) 40 mg DAILY ORAL 01/22/20 09:00 02/21/20 08:59 01/28/20 08:23 Tamsulosin HCl (Flomax) 0.4 mg BID ORAL 01/21/20 18:00 02/20/20 17:59 01/28/20 08:23 Assessment/Plan Assessment/Plan IMPRESSION: 1. Mild pulmonary edema. 2. Hyperkalemia. 3. ESRD, on dialysis. 4. Hypertension. 5. Toxic-metabolic encephalopathy. DISCUSSION: The patient is confused and is not able to care for himself. He likely will need to be placed in a facility and be cared for dialysis. Continue oxygen prn only; currently on RA I will follow. Nataliya Mclaughlin Omar Syed MD Jan 28, 2020 11:57
--- NOTE | 2020-01-28 12:08 | General Progress Note ---
Subjective Allergies: Coded Allergies: No Known Allergies (Unverified , 04/21/18) Subjective doing ok weakness Objective Last 24 Hour Vital Signs Date Time Temp Pulse Resp B/P (MAP) Pulse Ox O2 Delivery O2 Flow Rate FiO2 01/28/20 08:00 96.3 71 19 120/67 (84) 97 01/28/20 04:00 97.2 75 17 131/75 (93) 98 01/28/20 00:00 97.4 73 16 129/72 (91) 99 01/27/20 20:20 Room Air 01/27/20 20:00 97.8 75 14 139/69 (92) 99 01/27/20 16:00 97.6 79 18 125/79 (94) 99 Intake and Output 01/27/20 01/28/20 19:00 07:00 Intake Total 800 ml 260 ml Output Total 4 ml 350 ml Balance 796 ml -90 ml Intake Oral 200 ml 260 ml Other 600 ml Output Urine Total 350 ml Stool Total 4 ml # Voids 2 # Bowel Movements 2 3 Laboratory Tests 01/27/20 18:18: POC Whole Blood Glucose [Pending] Height (Feet): 5 Height (Inches): 5.00 Weight (Pounds): 110 General Appearance: alert EENT: PERRL/EOMI Neck: supple Cardiovascular: regular rhythm Respiratory/Chest: normal breath sounds Abdomen: non tender, soft Assessment/Plan Assessment/Plan: 1 sepsis 2 diarrea 3 dm 2 4 esrdon hd 5 htn 6 weakness 7 bactremia id consult dc macrobid dc plan to snf waiting for covid test Kamron Phelan cm, MD Jan 28, 2020 12:08
--- NOTE | 2020-01-28 12:53 | Infectious Diseases Prog Note ---
Assessment/Plan Assessment/Plan A 1. VRE sepsis 2. pneumonia 2. diabetes mellitus 4. hypertension 5. renal failure on HD 6. VRE UTI 7. Anemia P 1. Continue linezolid 2. Continue ceftriaxone X 2 days 3. consider removal of right subclavian catheter Subjective ROS Limited/Unobtainable: No Constitutional: Reports: no symptoms Respiratory: Reports: no symptoms Gastrointestinal/Abdominal: Reports: no symptoms Genitourinary: Reports: no symptoms Allergies: Coded Allergies: No Known Allergies (Unverified , 04/21/18) Objective Last 24 Hour Vital Signs Date Time Temp Pulse Resp B/P (MAP) Pulse Ox O2 Delivery O2 Flow Rate FiO2 01/28/20 12:38 Room Air 01/28/20 12:00 97.7 71 18 120/70 (87) 100 01/28/20 08:00 96.3 71 19 120/67 (84) 97 01/28/20 04:00 97.2 75 17 131/75 (93) 98 01/28/20 00:00 97.4 73 16 129/72 (91) 99 01/27/20 20:20 Room Air 01/27/20 20:00 97.8 75 14 139/69 (92) 99 01/27/20 16:00 97.6 79 18 125/79 (94) 99 Height (Feet): 5 Height (Inches): 5.00 Weight (Pounds): 110 General Appearance: no acute distress HEENT: anicteric Respiratory/Chest: lungs clear Cardiovascular: normal rate, other - R chest Permacath Abdomen: soft, non tender Extremities: no edema Neurologic/Psychiatric: alert, responsive Laboratory Tests Test 01/27/20 18:18 01/28/20 12:30 POC Whole Blood Glucose Pending 79 MG/DL (74-106) Current Medications Medications (Trade) Dose Ordered Sig/Jamal Route PRN Reason Start Time Stop Time Status Last Admin Dose Admin Acetaminophen (Tylenol) 650 mg Q6H PRN ORAL For Pain 3-6 / Fever >100.5 01/21/20 12:00 02/20/20 11:59 01/25/20 19:09 Amlodipine Besylate (Norvasc) 2.5 mg DAILY ORAL 01/22/20 09:00 02/21/20 08:59 01/27/20 11:31 Ceftriaxone Sodium 1 gm/ Dextrose 55 ml @ 110 mls/hr Q24H IVPB 01/24/20 15:00 01/31/20 14:59 01/27/20 15:38 Dextrose (Dextrose 50%) 25 ml Q30M PRN IV Hypoglycemia 01/21/20 12:00 04/20/20 11:59 Dextrose (Dextrose 50%) 50 ml Q30M PRN IV Hypoglycemia 01/21/20 12:00 04/20/20 11:59 Epoetin Andre (Epoetin Andre(ESRD on dialysis)) 10,000 unit SUBQ 01/23/20 21:00 04/22/20 20:59 01/27/20 21:23 Folic Acid (Folate) 5 mg DAILY ORAL 01/22/20 11:00 02/21/20 10:59 01/28/20 08:24 Linezolid 300 ml @ 300 mls/hr Q12HR IVPB 01/24/20 17:00 01/31/20 16:59 01/28/20 08:27 Lisinopril (ZestriL) 10 mg DAILY ORAL 01/22/20 09:00 02/21/20 08:59 01/27/20 11:31 Loperamide HCl (Imodium) 2 mg TIDPRN PRN ORAL Diarrhea 01/23/20 09:45 02/22/20 09:44 01/27/20 20:08 Ondansetron HCl (Zofran) 4 mg Q6H PRN IVP Nausea & Vomiting 01/21/20 12:00 02/20/20 11:59 Pantoprazole (Protonix) 40 mg DAILY ORAL 01/22/20 09:00 02/21/20 08:59 01/28/20 08:23 Tamsulosin HCl (Flomax) 0.4 mg BID ORAL 01/21/20 18:00 02/20/20 17:59 01/28/20 08:23 Thai Hale MD Jan 28, 2020 12:53
--- NOTE | 2020-01-28 12:54 | Nephrology Progress Note ---
Assessment/Plan Problem List: (1) Hyperkalemia (2) JONA (acute kidney injury) (3) Failure to thrive in adult (4) Anemia (5) Malnutrition Assessment: BMI 18.3 Assessment 1) JONA (acute kidney injury) (2) Hyperkalemia (3) Anemia (4) Metabolic acidosis (5) Ureter obstruction (6) Failure to thrive, BMI 18 Plan January 27: Status quo. Due for dialysis today. Medication list reviewed. Outpatient dialysis upon discharge. January 26: Status quo. Was dialyzed yesterday, dialysis again tomorrow. Continue current management. Outpatient dialysis upon discharge. January 25: Status quo. Due for dialysis today. Continue current management. January 24: Status quo. Dialysis tomorrow. Waiting for outpatient dialysis unit placement. January 23: Patient doing well. Labs reviewed. No blood work is available for today. Medication list reviewed. Will continue to dialysis as needed. Process of discharge and outpatient dialysis unit placement. January 22: Dialyzed yesterday. Today's labs reviewed. Medications reviewed. Outpatient dialysis unit placement to be processed. January 21: More Kayexalate for hyperkalemia. Due for dialysis today. Renal diet. Keep the blood pressure in check. Patient advised to be compliant through a mathematics instructor. Folic acid p.o. initiated Objective Objective Last 24 Hour Vital Signs Date Time Temp Pulse Resp B/P (MAP) Pulse Ox O2 Delivery O2 Flow Rate FiO2 01/28/20 12:38 Room Air 01/28/20 12:00 97.7 71 18 120/70 (87) 100 01/28/20 08:00 96.3 71 19 120/67 (84) 97 01/28/20 04:00 97.2 75 17 131/75 (93) 98 01/28/20 00:00 97.4 73 16 129/72 (91) 99 01/27/20 20:20 Room Air 01/27/20 20:00 97.8 75 14 139/69 (92) 99 01/27/20 16:00 97.6 79 18 125/79 (94) 99 Intake and Output 01/27/20 01/28/20 19:00 07:00 Intake Total 800 ml 260 ml Output Total 4 ml 350 ml Balance 796 ml -90 ml Intake Oral 200 ml 260 ml Other 600 ml Output Urine Total 350 ml Stool Total 4 ml # Voids 2 # Bowel Movements 2 3 Laboratory Tests 01/27/20 18:18: POC Whole Blood Glucose [Pending] 01/28/20 12:30: POC Whole Blood Glucose 79 Height (Feet): 5 Height (Inches): 5.00 Weight (Pounds): 110 Objective No change Orlin Berrios MD Jan 28, 2020 12:54
[2020-01-28] MEDS: cefTRIAXone 1 GM in D5W 55 ML IVPB SCH (15:53)
[2020-01-29 04:00] VITALS: BP 144/65
[2020-01-29 08:00] VITALS: BP 133/70
[2020-01-29] MEDS: Tamsulosin 0.4mg cap ORAL SCH ×2 (09:47→17:10)
[2020-01-29] MEDS: Lisinopril 10mg tab ORAL SCH (09:48)
[2020-01-29] MEDS: Linezolid 600mg/300mL Premix IVPB SCH ×2 (09:49→20:33)
--- NOTE | 2020-01-29 10:33 | Pulmonology Progress Note ---
Subjective ROS Limited/Unobtainable: No Interval Events: None new Constitutional: Reports: no symptoms HEENT: Repors: no symptoms Respiratory: Reports: no symptoms Cardiovascular: Reports: no symptoms Gastrointestinal/Abdominal: Reports: no symptoms Musculoskeletal: Denies: pain Allergies: Coded Allergies: No Known Allergies (Unverified , 04/21/18) Objective Last 24 Hour Vital Signs Date Time Temp Pulse Resp B/P (MAP) Pulse Ox O2 Delivery O2 Flow Rate FiO2 01/29/20 09:48 54 133/70 01/29/20 09:48 133/70 01/29/20 08:00 97.7 54 17 133/70 (91) 96 01/29/20 04:00 98.2 81 18 144/65 (91) 98 01/28/20 23:48 98.6 88 18 142/71 (94) 97 01/28/20 21:00 Room Air 01/28/20 20:00 98.5 83 18 149/74 (99) 97 01/28/20 16:00 98.1 81 18 145/73 (97) 100 01/28/20 12:38 Room Air 01/28/20 12:00 97.7 71 18 120/70 (87) 100 Intake and Output 01/28/20 01/29/20 19:00 07:00 Intake Total 1850 ml 540 ml Balance 1850 ml 540 ml Intake Oral 1440 ml 240 ml IV Total 410 ml 300 ml # Voids 2 # Bowel Movements 1 1 General Appearance: no acute distress HEENT: normocephalic Respiratory: chest wall non-tender, lungs clear Cardiovascular: normal peripheral pulses, normal rate Abdomen: normal bowel sounds, soft, non tender Extremities: no cyanosis Laboratory Tests 01/28/20 12:30: POC Whole Blood Glucose 79 01/28/20 16:59: POC Whole Blood Glucose 126H 01/28/20 19:59: POC Whole Blood Glucose 95 Current Medications Medications (Trade) Dose Ordered Sig/Jamal Route PRN Reason Start Time Stop Time Status Last Admin Dose Admin Acetaminophen (Tylenol) 650 mg Q6H PRN ORAL For Pain 3-6 / Fever >100.5 01/21/20 12:00 02/20/20 11:59 01/25/20 19:09 Amlodipine Besylate (Norvasc) 2.5 mg DAILY ORAL 01/22/20 09:00 02/21/20 08:59 01/29/20 09:48 Ceftriaxone Sodium 1 gm/ Dextrose 55 ml @ 110 mls/hr Q24H IVPB 01/24/20 15:00 01/31/20 14:59 01/28/20 15:53 Dextrose (Dextrose 50%) 25 ml Q30M PRN IV Hypoglycemia 01/21/20 12:00 04/20/20 11:59 Dextrose (Dextrose 50%) 50 ml Q30M PRN IV Hypoglycemia 01/21/20 12:00 04/20/20 11:59 Epoetin Andre (Epoetin Andre(ESRD on dialysis)) 10,000 unit THU-THU-THU SUBQ 01/23/20 21:00 04/22/20 20:59 01/27/20 21:23 Folic Acid (Folate) 5 mg DAILY ORAL 01/22/20 11:00 02/21/20 10:59 01/29/20 09:48 Linezolid 300 ml @ 300 mls/hr Q12HR IVPB 01/24/20 17:00 01/31/20 16:59 01/29/20 09:49 Lisinopril (ZestriL) 10 mg DAILY ORAL 01/22/20 09:00 02/21/20 08:59 01/29/20 09:48 Loperamide HCl (Imodium) 2 mg TIDPRN PRN ORAL Diarrhea 01/23/20 09:45 02/22/20 09:44 01/29/20 06:01 Ondansetron HCl (Zofran) 4 mg Q6H PRN IVP Nausea & Vomiting 01/21/20 12:00 02/20/20 11:59 Pantoprazole (Protonix) 40 mg DAILY ORAL 01/22/20 09:00 02/21/20 08:59 01/29/20 09:48 Tamsulosin HCl (Flomax) 0.4 mg BID ORAL 01/21/20 18:00 02/20/20 17:59 01/29/20 09:47 Assessment/Plan Assessment/Plan IMPRESSION: 1. Mild pulmonary edema. 2. Hyperkalemia. 3. ESRD, on dialysis. 4. Hypertension. 5. Toxic-metabolic encephalopathy. DISCUSSION: The patient is confused and is not able to care for himself. He likely will need to be placed in a facility and be cared for dialysis. Continue oxygen prn only; currently on RA I will follow. Nataliya Mclaughlin Omar Syed MD Jan 29, 2020 10:33
--- NOTE | 2020-01-29 11:59 | Infectious Diseases Prog Note ---
Assessment/Plan Assessment/Plan antibiotics : linezolid, ceftriaxone A 1. VRE sepsis 2. pneumonia 2. diabetes mellitus 4. hypertension 5. renal failure on HD 6. VRE UTI P 1. continue linezolid 2. continue ceftriaxone 1 more day 3. will follow up cultures 4. consider removal of right subclavian catheter Subjective Constitutional: Denies: fever, chills Gastrointestinal/Abdominal: Reports: diarrhea; Denies: nausea, vomiting Musculoskeletal: Denies: pain Allergies: Coded Allergies: No Known Allergies (Unverified , 04/21/18) Objective Last 24 Hour Vital Signs Date Time Temp Pulse Resp B/P (MAP) Pulse Ox O2 Delivery O2 Flow Rate FiO2 01/29/20 09:48 54 133/70 01/29/20 09:48 133/70 01/29/20 08:00 97.7 54 17 133/70 (91) 96 01/29/20 04:00 98.2 81 18 144/65 (91) 98 01/28/20 23:48 98.6 88 18 142/71 (94) 97 01/28/20 21:00 Room Air 01/28/20 20:00 98.5 83 18 149/74 (99) 97 01/28/20 16:00 98.1 81 18 145/73 (97) 100 01/28/20 12:38 Room Air 01/28/20 12:00 97.7 71 18 120/70 (87) 100 Height (Feet): 5 Height (Inches): 5.00 Weight (Pounds): 110 Respiratory/Chest: lungs clear Cardiovascular: normal rate, regular rhythm, no gallop/murmur Abdomen: soft, non tender Extremities: no edema, other - right subclavian catheter Laboratory Tests Test 01/28/20 12:30 01/28/20 16:59 01/28/20 19:59 01/29/20 11:55 POC Whole Blood Glucose 79 MG/DL (74-106) 126 MG/DL (74-106) H 95 MG/DL (74-106) 189 MG/DL (74-106) H Current Medications Medications (Trade) Dose Ordered Sig/Jamal Route PRN Reason Start Time Stop Time Status Last Admin Dose Admin Acetaminophen (Tylenol) 650 mg Q6H PRN ORAL For Pain 3-6 / Fever >100.5 01/21/20 12:00 02/20/20 11:59 01/25/20 19:09 Amlodipine Besylate (Norvasc) 2.5 mg DAILY ORAL 01/22/20 09:00 02/21/20 08:59 01/29/20 09:48 Ceftriaxone Sodium 1 gm/ Dextrose 55 ml @ 110 mls/hr Q24H IVPB 01/24/20 15:00 01/31/20 14:59 01/28/20 15:53 Dextrose (Dextrose 50%) 25 ml Q30M PRN IV Hypoglycemia 01/21/20 12:00 04/20/20 11:59 Dextrose (Dextrose 50%) 50 ml Q30M PRN IV Hypoglycemia 01/21/20 12:00 04/20/20 11:59 Epoetin Nadre (Epoetin Andre(ESRD on dialysis)) 10,000 unit SUBQ 01/23/20 21:00 04/22/20 20:59 01/27/20 21:23 Folic Acid (Folate) 5 mg DAILY ORAL 01/22/20 11:00 02/21/20 10:59 01/29/20 09:48 Linezolid 300 ml @ 300 mls/hr Q12HR IVPB 01/24/20 17:00 01/31/20 16:59 01/29/20 09:49 Lisinopril (ZestriL) 10 mg DAILY ORAL 01/22/20 09:00 02/21/20 08:59 01/29/20 09:48 Loperamide HCl (Imodium) 2 mg TIDPRN PRN ORAL Diarrhea 01/23/20 09:45 02/22/20 09:44 01/29/20 06:01 Ondansetron HCl (Zofran) 4 mg Q6H PRN IVP Nausea & Vomiting 01/21/20 12:00 02/20/20 11:59 Pantoprazole (Protonix) 40 mg DAILY ORAL 01/22/20 09:00 02/21/20 08:59 01/29/20 09:48 Tamsulosin HCl (Flomax) 0.4 mg BID ORAL 01/21/20 18:00 02/20/20 17:59 01/29/20 09:47 Paolo Napier MD Jan 29, 2020 11:59
[2020-01-29 12:00] VITALS: BP 127/62
--- NOTE | 2020-01-29 14:36 | Nephrology Progress Note ---
Assessment/Plan Problem List: (1) Hyperkalemia (2) JONA (acute kidney injury) (3) Failure to thrive in adult (4) Anemia (5) Malnutrition Assessment: BMI 18.3 Assessment 1) JONA (acute kidney injury) (2) Hyperkalemia (3) Anemia (4) Metabolic acidosis (5) Ureter obstruction (6) Failure to thrive, BMI 18 Plan January 28: Status quo. Was dialyzed yesterday. Due for dialysis tomorrow. We will continue to monitor chemistries. Medication list reviewed. January 27: Status quo. Due for dialysis today. Medication list reviewed. Outpatient dialysis upon discharge. January 26: Status quo. Was dialyzed yesterday, dialysis again tomorrow. Continue current management. Outpatient dialysis upon discharge. January 25: Status quo. Due for dialysis today. Continue current management. January 24: Status quo. Dialysis tomorrow. Waiting for outpatient dialysis unit placement. January 23: Patient doing well. Labs reviewed. No blood work is available for today. Medication list reviewed. Will continue to dialysis as needed. Process of discharge and outpatient dialysis unit placement. January 22: Dialyzed yesterday. Today's labs reviewed. Medications reviewed. Outpatient dialysis unit placement to be processed. January 21: More Kayexalate for hyperkalemia. Due for dialysis today. Renal diet. Keep the blood pressure in check. Patient advised to be compliant through a food service attendant. Folic acid p.o. initiated Subjective ROS Limited/Unobtainable: No Constitutional: Reports: malaise Objective Objective Last 24 Hour Vital Signs Date Time Temp Pulse Resp B/P (MAP) Pulse Ox O2 Delivery O2 Flow Rate FiO2 01/29/20 12:00 97.7 82 18 127/62 (83) 97 01/29/20 09:48 54 133/70 01/29/20 09:48 133/70 01/29/20 08:00 97.7 54 17 133/70 (91) 96 01/29/20 04:00 98.2 81 18 144/65 (91) 98 01/28/20 23:48 98.6 88 18 142/71 (94) 97 01/28/20 21:00 Room Air 01/28/20 20:00 98.5 83 18 149/74 (99) 97 01/28/20 16:00 98.1 81 18 145/73 (97) 100 Intake and Output 01/28/20 01/29/20 19:00 07:00 Intake Total 1850 ml 540 ml Balance 1850 ml 540 ml Intake Oral 1440 ml 240 ml IV Total 410 ml 300 ml # Voids 2 # Bowel Movements 1 1 No chemistry panel done today laboratory Tests 01/28/20 16:59: POC Whole Blood Glucose 126H 01/28/20 19:59: POC Whole Blood Glucose 95 01/29/20 11:55: POC Whole Blood Glucose 189H Height (Feet): 5 Height (Inches): 5.00 Weight (Pounds): 110 General Appearance: no apparent distress Cardiovascular: normal rate Respiratory/Chest: decreased breath sounds Abdomen: soft Objective No change Orlin Berrios MD Jan 29, 2020 14:36
[2020-01-29 16:00] VITALS: BP 120/76
[2020-01-29] MEDS: cefTRIAXone 1 GM in D5W 55 ML IVPB SCH (16:16)
[2020-01-29 20:00] VITALS: BP 127/77
[2020-01-30 04:00] VITALS: BP 131/71
[2020-01-30 08:00] VITALS: BP 143/69
[2020-01-30] MEDS: Tamsulosin 0.4mg cap ORAL SCH ×2 (08:36→17:18)
[2020-01-30] MEDS: Lisinopril 10mg tab ORAL SCH (09:00)
[2020-01-30] MEDS: Linezolid 600mg/300mL Premix IVPB SCH ×2 (09:48→22:38)
--- NOTE | 2020-01-30 10:00 | Nephrology Progress Note ---
Assessment/Plan Problem List: (1) Hyperkalemia (2) JONA (acute kidney injury) (3) Failure to thrive in adult (4) Anemia (5) Malnutrition Assessment: BMI 18.3 Assessment 1) JONA (acute kidney injury) (2) Hyperkalemia (3) Anemia (4) Metabolic acidosis (5) Ureter obstruction (6) Failure to thrive, BMI 18 Plan January 29: Due for dialysis today. Today's lab pending. Medication list reviewed. Surveillance blood culture ordered during hemodialysis today January 28: Status quo. Was dialyzed yesterday. Due for dialysis tomorrow. We will continue to monitor chemistries. Medication list reviewed. January 27: Status quo. Due for dialysis today. Medication list reviewed. Outpatient dialysis upon discharge. January 26: Status quo. Was dialyzed yesterday, dialysis again tomorrow. Continue current management. Outpatient dialysis upon discharge. January 25: Status quo. Due for dialysis today. Continue current management. January 24: Status quo. Dialysis tomorrow. Waiting for outpatient dialysis u nit placement. January 23: Patient doing well. Labs reviewed. No blood work is available for today. Medication list reviewed. Will continue to dialysis as needed. Process of discharge and outpatient dialysis unit placement. January 22: Dialyzed yesterday. Today's labs reviewed. Medications reviewed. Outpatient dialysis unit placement to be processed. January 21: More Kayexalate for hyperkalemia. Due for dialysis today. Renal diet. Keep the blood pressure in check. Patient advised to be compliant through a tipple mechanic. Folic acid p.o. initiated Subjective ROS Limited/Unobtainable: No Constitutional: Reports: malaise Objective Objective Last 24 Hour Vital Signs Date Time Temp Pulse Resp B/P (MAP) Pulse Ox O2 Delivery O2 Flow Rate FiO2 01/30/20 08:00 98.1 84 19 143/69 (93) 97 01/30/20 04:00 98.0 83 17 131/71 (91) 97 01/29/20 20:58 Room Air 01/29/20 20:00 97.5 81 18 127/77 (94) 97 01/29/20 16:00 97.8 82 17 120/76 (91) 97 01/29/20 12:00 97.7 82 18 127/62 (83) 97 Intake and Output 01/29/20 01/30/20 19:00 07:00 Intake Total 410 ml 150 ml Balance 410 ml 150 ml Intake Oral 150 ml IV Total 410 ml # Voids 3 # Bowel Movements 1 3 Current Medications Medications (Trade) Dose Ordered Sig/Jamal Route PRN Reason Start Time Stop Time Status Last Admin Dose Admin Acetaminophen (Tylenol) 650 mg Q6H PRN ORAL For Pain 3-6 / Fever >100.5 01/21/20 12:00 02/20/20 11:59 01/25/20 19:09 Amlodipine Besylate (Norvasc) 2.5 mg DAILY ORAL 01/22/20 09:00 02/21/20 08:59 01/29/20 09:48 Ceftriaxone Sodium 1 gm/ Dextrose 55 ml @ 110 mls/hr Q24H IVPB 01/24/20 15:00 01/31/20 14:59 01/29/20 16:16 Dextrose (Dextrose 50%) 25 ml Q30M PRN IV Hypoglycemia 01/21/20 12:00 04/20/20 11:59 Dextrose (Dextrose 50%) 50 ml Q30M PRN IV Hypoglycemia 01/21/20 12:00 04/20/20 11:59 Epoetin Andre (Epoetin Andre(ESRD on dialysis)) 10,000 unit THU-THU-THU SUBQ 01/23/20 21:00 04/22/20 20:59 01/27/20 21:23 Folic Acid (Folate) 5 mg DAILY ORAL 01/22/20 11:00 02/21/20 10:59 01/30/20 08:36 Linezolid 300 ml @ 300 mls/hr Q12HR IVPB 01/24/20 17:00 01/31/20 16:59 01/30/20 09:48 Lisinopril (ZestriL) 10 mg DAILY ORAL 01/22/20 09:00 02/21/20 08:59 01/29/20 09:48 Loperamide HCl (Imodium) 2 mg TIDPRN PRN ORAL Diarrhea 01/23/20 09:45 02/22/20 09:44 01/29/20 20:33 Ondansetron HCl (Zofran) 4 mg Q6H PRN IVP Nausea & Vomiting 01/21/20 12:00 02/20/20 11:59 Pantoprazole (Protonix) 40 mg DAILY ORAL 01/22/20 09:00 02/21/20 08:59 01/30/20 08:36 Tamsulosin HCl (Flomax) 0.4 mg BID ORAL 01/21/20 18:00 02/20/20 17:59 01/30/20 08:36 Chemistry panel not drawn today yet laboratory Tests 01/29/20 11:55: POC Whole Blood Glucose 189H 01/29/20 16:21: POC Whole Blood Glucose 154H 01/29/20 19:31: POC Whole Blood Glucose 156H Height (Feet): 5 Height (Inches): 5.00 Weight (Pounds): 110 General Appearance: no apparent distress Cardiovascular: normal rate Respiratory/Chest: decreased breath sounds Abdomen: soft Objective No change Orlin Berrios MD Jan 30, 2020 10:00
--- NOTE | 2020-01-30 10:43 | Pulmonology Progress Note ---
Subjective ROS Limited/Unobtainable: No Interval Events: None new Constitutional: Denies: fever, chills HEENT: Repors: no symptoms Respiratory: Reports: no symptoms Cardiovascular: Reports: no symptoms Gastrointestinal/Abdominal: Reports: diarrhea; Denies: nausea, vomiting Musculoskeletal: Denies: pain Allergies: Coded Allergies: No Known Allergies (Unverified , 04/21/18) Objective Last 24 Hour Vital Signs Date Time Temp Pulse Resp B/P (MAP) Pulse Ox O2 Delivery O2 Flow Rate FiO2 01/30/20 08:00 98.1 84 19 143/69 (93) 97 01/30/20 04:00 98.0 83 17 131/71 (91) 97 01/29/20 20:58 Room Air 01/29/20 20:00 97.5 81 18 127/77 (94) 97 01/29/20 16:00 97.8 82 17 120/76 (91) 97 01/29/20 12:00 97.7 82 18 127/62 (83) 97 Intake and Output 01/29/20 01/30/20 19:00 07:00 Intake Total 410 ml 150 ml Balance 410 ml 150 ml Intake Oral 150 ml IV Total 410 ml # Voids 3 # Bowel Movements 1 3 General Appearance: no acute distress HEENT: normocephalic Respiratory: chest wall non-tender, lungs clear Cardiovascular: normal peripheral pulses, normal rate Abdomen: normal bowel sounds, soft, non tender Extremities: no cyanosis Laboratory Tests 01/29/20 11:55: POC Whole Blood Glucose 189H 01/29/20 16:21: POC Whole Blood Glucose 154H 01/29/20 19:31: POC Whole Blood Glucose 156H Current Medications Medications (Trade) Dose Ordered Sig/Jamal Route PRN Reason Start Time Stop Time Status Last Admin Dose Admin Acetaminophen (Tylenol) 650 mg Q6H PRN ORAL For Pain 3-6 / Fever >100.5 01/21/20 12:00 02/20/20 11:59 01/25/20 19:09 Amlodipine Besylate (Norvasc) 2.5 mg DAILY ORAL 01/22/20 09:00 02/21/20 08:59 01/29/20 09:48 Ceftriaxone Sodium 1 gm/ Dextrose 55 ml @ 110 mls/hr Q24H IVPB 01/24/20 15:00 01/31/20 14:59 01/29/20 16:16 Dextrose (Dextrose 50%) 25 ml Q30M PRN IV Hypoglycemia 01/21/20 12:00 04/20/20 11:59 Dextrose (Dextrose 50%) 50 ml Q30M PRN IV Hypoglycemia 01/21/20 12:00 04/20/20 11:59 Epoetin Andre (Epoetin Andre(ESRD on dialysis)) 10,000 unit THU- SUBQ 01/23/20 21:00 04/22/20 20:59 01/27/20 21:23 Folic Acid (Folate) 5 mg DAILY ORAL 01/22/20 11:00 02/21/20 10:59 01/30/20 08:36 Linezolid 300 ml @ 300 mls/hr Q12HR IVPB 01/24/20 17:00 01/31/20 16:59 01/30/20 09:48 Lisinopril (ZestriL) 10 mg DAILY ORAL 01/22/20 09:00 02/21/20 08:59 01/29/20 09:48 Loperamide HCl (Imodium) 2 mg TIDPRN PRN ORAL Diarrhea 01/23/20 09:45 02/22/20 09:44 01/29/20 20:33 Ondansetron HCl (Zofran) 4 mg Q6H PRN IVP Nausea & Vomiting 01/21/20 12:00 02/20/20 11:59 Pantoprazole (Protonix) 40 mg DAILY ORAL 01/22/20 09:00 02/21/20 08:59 01/30/20 08:36 Tamsulosin HCl (Flomax) 0.4 mg BID ORAL 01/21/20 18:00 02/20/20 17:59 01/30/20 08:36 Assessment/Plan Assessment/Plan IMPRESSION: 1. Mild pulmonary edema. 2. Hyperkalemia. 3. ESRD, on dialysis. 4. Hypertension. 5. Toxic-metabolic encephalopathy. DISCUSSION: The patient is confused and is not able to care for himself. He likely will need to be placed in a facility and be cared for dialysis. Continue oxygen prn only; currently on RA I will follow. Nataliya Mclaughlin Omar Syed MD Jan 30, 2020 10:43
--- NOTE | 2020-01-30 11:48 | Infectious Diseases Prog Note ---
Assessment/Plan Assessment/Plan antibiotics : linezolid, ceftriaxone A 1. VRE sepsis 2. pneumonia 2. diabetes mellitus 4. hypertension 5. renal failure on HD 6. VRE UTI P 1. continue linezolid 3 more days 2. d/c ceftriaxone 3. will follow up cultures 4. removal of right subclavian catheter planned Subjective Constitutional: Denies: fever, chills Respiratory: Denies: shortness of breath, dry cough Gastrointestinal/Abdominal: Denies: nausea, vomiting, diarrhea Musculoskeletal: Denies: pain Allergies: Coded Allergies: No Known Allergies (Unverified , 04/21/18) Objective Last 24 Hour Vital Signs Date Time Temp Pulse Resp B/P (MAP) Pulse Ox O2 Delivery O2 Flow Rate FiO2 01/30/20 08:00 98.1 84 19 143/69 (93) 97 01/30/20 04:00 98.0 83 17 131/71 (91) 97 01/29/20 20:58 Room Air 01/29/20 20:00 97.5 81 18 127/77 (94) 97 01/29/20 16:00 97.8 82 17 120/76 (91) 97 01/29/20 12:00 97.7 82 18 127/62 (83) 97 Height (Feet): 5 Height (Inches): 5.00 Weight (Pounds): 110 Respiratory/Chest: lungs clear Cardiovascular: normal rate, regular rhythm, no gallop/murmur Abdomen: soft, non tender Extremities: no edema, other - right subclavian catheter Laboratory Tests Test 01/29/20 11:55 01/29/20 16:21 01/29/20 19:31 01/30/20 11:41 POC Whole Blood Glucose 189 MG/DL (74-106) H 154 MG/DL (74-106) H 156 MG/DL (74-106) H 125 MG/DL (74-106) H Current Medications Medications (Trade) Dose Ordered Sig/Jamal Route PRN Reason Start Time Stop Time Status Last Admin Dose Admin Acetaminophen (Tylenol) 650 mg Q6H PRN ORAL For Pain 3-6 / Fever >100.5 01/21/20 12:00 02/20/20 11:59 01/25/20 19:09 Amlodipine Besylate (Norvasc) 2.5 mg DAILY ORAL 01/22/20 09:00 02/21/20 08:59 01/29/20 09:48 Ceftriaxone Sodium 1 gm/ Dextrose 55 ml @ 110 mls/hr Q24H IVPB 01/24/20 15:00 01/31/20 14:59 01/29/20 16:16 Dextrose (Dextrose 50%) 25 ml Q30M PRN IV Hypoglycemia 01/21/20 12:00 04/20/20 11:59 Dextrose (Dextrose 50%) 50 ml Q30M PRN IV Hypoglycemia 01/21/20 12:00 04/20/20 11:59 Epoetin Andre (Epoetin Andre(ESRD on dialysis)) 10,000 unit SUBQ 01/23/20 21:00 04/22/20 20:59 01/27/20 21:23 Folic Acid (Folate) 5 mg DAILY ORAL 01/22/20 11:00 02/21/20 10:59 01/30/20 08:36 Linezolid 300 ml @ 300 mls/hr Q12HR IVPB 01/24/20 17:00 01/31/20 16:59 01/30/20 09:48 Lisinopril (ZestriL) 10 mg DAILY ORAL 01/22/20 09:00 02/21/20 08:59 01/29/20 09:48 Loperamide HCl (Imodium) 2 mg TIDPRN PRN ORAL Diarrhea 01/23/20 09:45 02/22/20 09:44 01/29/20 20:33 Ondansetron HCl (Zofran) 4 mg Q6H PRN IVP Nausea & Vomiting 01/21/20 12:00 02/20/20 11:59 Pantoprazole (Protonix) 40 mg DAILY ORAL 01/22/20 09:00 02/21/20 08:59 01/30/20 08:36 Tamsulosin HCl (Flomax) 0.4 mg BID ORAL 01/21/20 18:00 02/20/20 17:59 01/30/20 08:36 Paolo Napier MD Jan 30, 2020 11:48
[2020-01-30 12:00] VITALS: BP 136/67
[2020-01-30 12:17] LABS: BASOPHILS % (AUTO) 1.8 % (0.0-2.0); EOSINOPHILS % (AUTO) 1.7 % (0.0-3.0); HEMATOCRIT 27.9 % (42.0-52.0); HEMOGLOBIN 8.9 G/DL (14.2-18.0); LYMPHOCYTES % (AUTO) 14.3 % (20.0-45.0); MEAN CORPUSCULAR VOLUME 100 FL (80-99); MONOCYTES % (AUTO) 5.7 % (1.0-10.0); NEUTROPHILS % (AUTO) 76.5 % (45.0-75.0); PLATELET COUNT 194 K/UL (150-450); RED CELL DISTRIBUTION WIDTH 16.3 % (11.6-14.8); WHITE BLOOD COUNT 7.7 K/UL (4.8-10.8)
[2020-01-30 13:21] LABS: ALBUMIN 1.8 G/DL (3.4-5.0); ALBUMIN/GLOBULIN RATIO 0.4 (1.0-2.7); BILIRUBIN,TOTAL 0.3 MG/DL (0.2-1.0); CALCIUM 7.6 MG/DL (8.5-10.1); CREATININE 4.6 MG/DL (0.55-1.30); PHOSPHORUS 4.1 MG/DL (2.5-4.9); POTASSIUM 4.6 MMOL/L (3.5-5.1)
[2020-01-30 16:00] VITALS: BP 131/73
--- NOTE | 2020-01-30 16:34 | General Progress Note ---
Subjective Allergies: Coded Allergies: No Known Allergies (Unverified , 04/21/18) Subjective doing ok weakness Objective Last 24 Hour Vital Signs Date Time Temp Pulse Resp B/P (MAP) Pulse Ox O2 Delivery O2 Flow Rate FiO2 01/30/20 16:00 98.6 76 18 131/73 (92) 98 01/30/20 12:00 98.8 79 18 136/67 (90) 98 01/30/20 08:00 98.1 84 19 143/69 (93) 97 01/30/20 04:00 98.0 83 17 131/71 (91) 97 01/29/20 20:58 Room Air 01/29/20 20:00 97.5 81 18 127/77 (94) 97 Intake and Output 01/29/20 01/30/20 19:00 07:00 Intake Total 410 ml 150 ml Balance 410 ml 150 ml Intake Oral 150 ml IV Total 410 ml # Voids 3 # Bowel Movements 1 3 Laboratory Tests 01/29/20 19:31: POC Whole Blood Glucose 156H 01/30/20 11:30: White Blood Count 7.7, Red Blood Count 2.80L, Hemoglobin 8.9L, Hematocrit 27.9L, Mean Corpuscular Volume 100H, Mean Corpuscular Hemoglobin 31.6H, Mean Corpuscular Hemoglobin Concent 31.7L, Red Cell Distribution Width 16.3H, Platelet Count 194, Mean Platelet Volume 5.6L, Neutrophils (%) (Auto) 76.5H, Lymphocytes (%) (Auto) 14.3L, Monocytes (%) (Auto) 5.7, Eosinophils (%) (Auto) 1.7, Basophils (%) (Auto) 1.8, Sodium Level 136, Potassium Level 4.6, Chloride Level 106, Carbon Dioxide Level 22, Anion Gap 8, Blood Urea Nitrogen 38H, Creatinine 4.6H, Estimat Glomerular Filtration Rate 12.9, Glucose Level 122H, Calcium Level 7.6L, Phosphorus Level 4.1, Magnesium Level 1.8, Total Bilirubin 0.3, Aspartate Amino Transf (AST/SGOT) 14L, Alanine Aminotransferase (ALT/SGPT) 13, Alkaline Phosphatase 134H, C-Reactive Protein, Quantitative 7.6H, Total Protein 6.3L, Albumin 1.8L, Globulin 4.5, Albumin/Globulin Ratio 0.4L, Hepatitis B Surface Antigen [Pending] 01/30/20 11:41: POC Whole Blood Glucose 125H Height (Feet): 5 Height (Inches): 5.00 Weight (Pounds): 110 General Appearance: alert EENT: PERRL/EOMI Neck: non-tender, supple Cardiovascular: normal rate Respiratory/Chest: lungs clear Abdomen: non tender, soft Assessment/Plan Assessment/Plan: 1 sepsis 2 diarrea 3 dm 2 4 esrdon hd 5 htn 6 weakness 7 bactremia id consult dc macrobid dc plan to snf waiting for covid test Kamron Phelan cm, MD Jan 30, 2020 16:34
[2020-01-30 20:00] VITALS: BP 135/53
[2020-01-30] MEDS: Epoetin Alfa-EPBX(ESRD on dialysis)10,000 unit/ml vial SUBQ SCH (21:02)
[2020-01-31] VITALS: BP 130/64
[2020-01-31 04:00] VITALS: BP 138/71
[2020-01-31 08:00] VITALS: BP 132/90
[2020-01-31] MEDS: Lisinopril 10mg tab ORAL SCH (09:01)
[2020-01-31] MEDS: Tamsulosin 0.4mg cap ORAL SCH ×2 (09:01→17:32)
[2020-01-31] MEDS: Linezolid 600mg/300mL Premix IVPB SCH (09:01)
--- NOTE | 2020-01-31 09:57 | Pulmonology Progress Note ---
Subjective ROS Limited/Unobtainable: No Interval Events: None new Constitutional: Denies: fever, chills HEENT: Repors: no symptoms Respiratory: Reports: no symptoms Cardiovascular: Reports: no symptoms Gastrointestinal/Abdominal: Denies: nausea, vomiting, diarrhea Musculoskeletal: Denies: pain Allergies: Coded Allergies: No Known Allergies (Unverified , 04/21/18) Objective Last 24 Hour Vital Signs Date Time Temp Pulse Resp B/P (MAP) Pulse Ox O2 Delivery O2 Flow Rate FiO2 01/31/20 09:01 85 132/90 01/31/20 09:01 132/90 01/31/20 08:00 97.9 85 20 132/90 (104) 95 01/31/20 04:00 98.7 83 17 138/71 (93) 100 01/31/20 00:00 98.4 62 18 130/64 (86) 99 01/30/20 21:00 Room Air 01/30/20 20:00 97.9 73 18 135/53 (80) 98 01/30/20 19:00 Room Air 01/30/20 16:00 98.6 76 18 131/73 (92) 98 01/30/20 12:00 98.8 79 18 136/67 (90) 98 Intake and Output 01/30/20 01/31/20 19:00 07:00 Intake Total 300 ml Output Total 600 ml Balance -300 ml IV Total 300 ml Output Urine Total 600 ml # Bowel Movements 2 1 General Appearance: no acute distress HEENT: normocephalic Respiratory: chest wall non-tender, lungs clear Cardiovascular: normal peripheral pulses, normal rate Abdomen: normal bowel sounds, soft, non tender Extremities: no cyanosis Laboratory Tests 01/30/20 11:30: White Blood Count 7.7, Red Blood Count 2.80L, Hemoglobin 8.9L, Hematocrit 27.9L, Mean Corpuscular Volume 100H, Mean Corpuscular Hemoglobin 31.6H, Mean Corpuscular Hemoglobin Concent 31.7L, Red Cell Distribution Width 16.3H, Plat elet Count 194, Mean Platelet Volume 5.6L, Neutrophils (%) (Auto) 76.5H, Ly mphocytes (%) (Auto) 14.3L, Monocytes (%) (Auto) 5.7, Eosinophils (%) (Auto) 1.7, Basophils (%) (Auto) 1.8, Sodium Level 136, Potassium Level 4.6, Chloride Level 106, Carbon Dioxide Level 22, Anion Gap 8, Blood Urea Nitrogen 38H, Creatinine 4.6H, Estimat Glomerular Filtration Rate 12.9, Glucose Level 122H, Calcium Level 7.6L, Phosphorus Level 4.1, Magnesium Level 1.8, Total Bilirubin 0.3, Aspartate Amino Transf (AST/SGOT) 14L, Alanine Aminotransferase (ALT/SGPT) 13, Alkaline Phosphatase 134H, C-Reactive Protein, Quantitative 7.6H, Total Protein 6.3L, Albumin 1.8L, Globulin 4.5, Albumin/Globulin Ratio 0.4L, Hepatitis B Surface Antigen Negative 01/30/20 11:41: POC Whole Blood Glucose 125H 01/30/20 17:05: POC Whole Blood Glucose 138H Current Medications Medications (Trade) Dose Ordered Sig/Jamal Route PRN Reason Start Time Stop Time Status Last Admin Dose Admin Acetaminophen (Tylenol) 650 mg Q6H PRN ORAL For Pain 3-6 / Fever >100.5 01/21/20 12:00 02/20/20 11:59 01/25/20 19:09 Amlodipine Besylate (Norvasc) 2.5 mg DAILY ORAL 01/22/20 09:00 02/21/20 08:59 01/31/20 09:01 Dextrose (Dextrose 50%) 25 ml Q30M PRN IV Hypoglycemia 01/21/20 12:00 04/20/20 11:59 Dextrose (Dextrose 50%) 50 ml Q30M PRN IV Hypoglycemia 01/21/20 12:00 04/20/20 11:59 Epoetin Andre (Epoetin Andre(ESRD on dialysis)) 10,000 unit THU-THU-THU SUBQ 01/23/20 21:00 04/22/20 20:59 01/30/20 21:02 Folic Acid (Folate) 5 mg DAILY ORAL 01/22/20 11:00 02/21/20 10:59 01/31/20 09:02 Linezolid 300 ml @ 300 mls/hr Q12HR IVPB 01/24/20 17:00 02/02/20 23:59 01/31/20 09:01 Lisinopril (ZestriL) 10 mg DAILY ORAL 01/22/20 09:00 02/21/20 08:59 01/31/20 09:01 Loperamide HCl (Imodium) 2 mg TIDPRN PRN ORAL Diarrhea 01/23/20 09:45 02/22/20 09:44 01/29/20 20:33 Ondansetron HCl (Zofran) 4 mg Q6H PRN IVP Nausea & Vomiting 01/21/20 12:00 02/20/20 11:59 Pantoprazole (Protonix) 40 mg DAILY ORAL 01/22/20 09:00 02/21/20 08:59 01/31/20 09:01 Tamsulosin HCl (Flomax) 0.4 mg BID ORAL 01/21/20 18:00 02/20/20 17:59 01/31/20 09:01 Assessment/Plan Assessment/Plan IMPRESSION: 1. Mild pulmonary edema. 2. Hyperkalemia. 3. ESRD, on dialysis. 4. Hypertension. 5. Toxic-metabolic encephalopathy. DISCUSSION: The patient is confused and is not able to care for himself. He likely will need to be placed in a facility and be cared for dialysis. Continue oxygen prn only; currently on RA I will follow. Noted VRE bacteremia; on linezolid Gonzalo Condon M.D. Gonzalo Condon MD Jan 31, 2020 09:57
--- NOTE | 2020-01-31 10:22 | General Progress Note ---
Subjective Allergies: Coded Allergies: No Known Allergies (Unverified , 04/21/18) Subjective doing ok weakness Objective Last 24 Hour Vital Signs Date Time Temp Pulse Resp B/P (MAP) Pulse Ox O2 Delivery O2 Flow Rate FiO2 01/31/20 09:01 85 132/90 01/31/20 09:01 132/90 01/31/20 08:00 97.9 85 20 132/90 (104) 95 01/31/20 04:00 98.7 83 17 138/71 (93) 100 01/31/20 00:00 98.4 62 18 130/64 (86) 99 01/30/20 21:00 Room Air 01/30/20 20:00 97.9 73 18 135/53 (80) 98 01/30/20 19:00 Room Air 01/30/20 16:00 98.6 76 18 131/73 (92) 98 01/30/20 12:00 98.8 79 18 136/67 (90) 98 Intake and Output 01/30/20 01/31/20 19:00 07:00 Intake Total 300 ml Output Total 600 ml Balance -300 ml IV Total 300 ml Output Urine Total 600 ml # Bowel Movements 2 1 Laboratory Tests 01/30/20 11:30: White Blood Count 7.7, Red Blood Count 2.80L, Hemoglobin 8.9L, Hematocrit 27.9L, Mean Corpuscular Volume 100H, Mean Corpuscular Hemoglobin 31.6H, Mean Corpuscular Hemoglobin Concent 31.7L, Red Cell Distribution Width 16.3H, Platelet Count 194, Mean Platelet Volume 5.6L, Neutrophils (%) (Auto) 76.5H, Lymphocytes (%) (Auto) 14.3L, Monocytes (%) (Auto) 5.7, Eosinophils (%) (Auto) 1.7, Basophils (%) (Auto) 1.8, Sodium Level 136, Potassium Level 4.6, Chloride Level 106, Carbon Dioxide Level 22, Anion Gap 8, Blood Urea Nitrogen 38H, Creatinine 4.6H, Estimat Glomerular Filtration Rate 12.9, Glucose Level 122H, Calcium Level 7.6L, Phosphorus Level 4.1, Magnesium Level 1.8, Total Bilirubin 0.3, Aspartate Amino Transf (AST/SGOT) 14L, Alanine Aminotransferase (ALT/SGPT) 13, Alkaline Phosphatase 134H, C-Reactive Protein, Quantitative 7.6H, Total Protein 6.3L, Albumin 1.8L, Globulin 4.5, Albumin/Globulin Ratio 0.4L, Hepatitis B Surface Antigen Negative 01/30/20 11:41: POC Whole Blood Glucose 125H 01/30/20 17:05: POC Whole Blood Glucose 138H Height (Feet): 5 Height (Inches): 5.00 Weight (Pounds): 110 General Appearance: alert EENT: PERRL/EOMI Neck: supple Cardiovascular: normal rate Respiratory/Chest: lungs clear Abdomen: non tender, soft Assessment/Plan Assessment/Plan: 1 sepsis 2 diarrea 3 dm 2 4 esrdon hd 5 htn 6 weakness 7 bactremia id consult dc macrobid dc plan to snf waiting for covid test Kamron Phelan cm, MD Jan 31, 2020 10:22
--- NOTE | 2020-01-31 11:35 | Infectious Diseases Prog Note ---
Assessment/Plan Assessment/Plan antibiotics : linezolid A 1. VRE sepsis 2. pneumonia 2. diabetes mellitus 4. hypertension 5. renal failure on HD 6. VRE UTI P 1. continue linezolid 2 more days 2. will follow up cultures Subjective Constitutional: Denies: fever, chills Respiratory: Denies: shortness of breath, dry cough Gastrointestinal/Abdominal: Reports: diarrhea - decreased; Denies: nausea, vomiting Musculoskeletal: Denies: pain Allergies: Coded Allergies: No Known Allergies (Unverified , 04/21/18) Objective Last 24 Hour Vital Signs Date Time Temp Pulse Resp B/P (MAP) Pulse Ox O2 Delivery O2 Flow Rate FiO2 01/31/20 09:01 85 132/90 01/31/20 09:01 132/90 01/31/20 09:00 Room Air 01/31/20 08:00 97.9 85 20 132/90 (104) 95 01/31/20 04:00 98.7 83 17 138/71 (93) 100 01/31/20 00:00 98.4 62 18 130/64 (86) 99 01/30/20 21:00 Room Air 01/30/20 20:00 97.9 73 18 135/53 (80) 98 01/30/20 19:00 Room Air 01/30/20 16:00 98.6 76 18 131/73 (92) 98 01/30/20 12:00 98.8 79 18 136/67 (90) 98 Height (Feet): 5 Height (Inches): 5.00 Weight (Pounds): 110 Respiratory/Chest: lungs clear Cardiovascular: normal rate, regular rhythm, no gallop/murmur Abdomen: soft, non tender Extremities: no edema, other - right subclavian catheter Laboratory Tests Test 01/30/20 11:41 01/30/20 17:05 POC Whole Blood Glucose 125 MG/DL (74-106) H 138 MG/DL (74-106) H Current Medications Medications (Trade) Dose Ordered Sig/Jamal Route PRN Reason Start Time Stop Time Status Last Admin Dose Admin Acetaminophen (Tylenol) 650 mg Q6H PRN ORAL For Pain 3-6 / Fever >100.5 01/21/20 12:00 02/20/20 11:59 01/25/20 19:09 Amlodipine Besylate (Norvasc) 2.5 mg DAILY ORAL 01/22/20 09:00 02/21/20 08:59 01/31/20 09:01 Dextrose (Dextrose 50%) 25 ml Q30M PRN IV Hypoglycemia 01/21/20 12:00 04/20/20 11:59 Dextrose (Dextrose 50%) 50 ml Q30M PRN IV Hypoglycemia 01/21/20 12:00 04/20/20 11:59 Epoetin Andre (Epoetin Andre(ESRD on dialysis)) 10,000 unit SUBQ 01/23/20 21:00 04/22/20 20:59 01/30/20 21:02 Folic Acid (Folate) 5 mg DAILY ORAL 01/22/20 11:00 02/21/20 10:59 01/31/20 09:02 Linezolid (Zyvox) 600 mg EVERY 12 HOURS ORAL 01/31/20 21:00 02/05/20 20:59 Lisinopril (ZestriL) 10 mg DAILY ORAL 01/22/20 09:00 02/21/20 08:59 01/31/20 09:01 Loperamide HCl (Imodium) 2 mg TIDPRN PRN ORAL Diarrhea 01/23/20 09:45 02/22/20 09:44 01/29/20 20:33 Ondansetron HCl (Zofran) 4 mg Q6H PRN IVP Nausea & Vomiting 01/21/20 12:00 02/20/20 11:59 Pantoprazole (Protonix) 40 mg DAILY ORAL 01/22/20 09:00 02/21/20 08:59 01/31/20 09:01 Tamsulosin HCl (Flomax) 0.4 mg BID ORAL 01/21/20 18:00 02/20/20 17:59 01/31/20 09:01 Paolo Napier MD Jan 31, 2020 11:34
[2020-01-31 12:00] VITALS: BP 134/69
--- NOTE | 2020-01-31 12:21 | Nephrology Progress Note ---
Assessment/Plan Problem List: (1) Hyperkalemia (2) JONA (acute kidney injury) (3) Failure to thrive in adult (4) Anemia (5) Malnutrition Assessment: BMI 18.3 Assessment 1) JONA (acute kidney injury) (2) Hyperkalemia (3) Anemia (4) Metabolic acidosis (5) Ureter obstruction (6) Failure to thrive, BMI 18 Plan January 30: Dialyzed yesterday. Labs are reviewed. Due for dialysis tomorrow. Blood culture from January 26 - after 72 hours. Continue discharge planning. January 29: Due for dialysis today. Today's lab pending. Medication list reviewed. Surveillance blood culture ordered during hemodialysis today January 28: Status quo. Was dialyzed yesterday. Due for dialysis tomorrow. We will continue to monitor chemistries. Medication list reviewed. January 27: Status quo. Due for dialysis today. Medication list reviewed. Outpatient dialysis upon discharge. January 26: Status quo. Was dialyzed yesterday, dialysis again tomorrow. Continue current management. Outpatient dialysis upon discharge. January 25: Status quo. Due for dialysis today. Continue current management. January 24: Status quo. Dialysis tomorrow. Waiting for outpatient dialysis unit placement. January 23: Patient doing well. Labs reviewed. No blood work is available for today. Medication list reviewed. Will continue to dialysis as needed. Process of discharge and outpatient dialysis unit placement. January 22: Dialyzed yesterday. Today's labs reviewed. Medications reviewed. Outpatient dialysis unit placement to be processed. January 21: More Kayexalate for hyperkalemia. Due for dialysis today. Renal diet. Keep the blood pressure in check. 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 Folic acid p.o. initiated Subjective ROS Limited/Unobtainable: No Constitutional: Reports: malaise Objective Objective Last 24 Hour Vital Signs Date Time Temp Pulse Resp B/P (MAP) Pulse Ox O2 Delivery O2 Flow Rate FiO2 01/31/20 09:01 85 132/90 01/31/20 09:01 132/90 01/31/20 09:00 Room Air 01/31/20 08:00 97.9 85 20 132/90 (104) 95 01/31/20 04:00 98.7 83 17 138/71 (93) 100 01/31/20 00:00 98.4 62 18 130/64 (86) 99 01/30/20 21:00 Room Air 01/30/20 20:00 97.9 73 18 135/53 (80) 98 01/30/20 19:00 Room Air 01/30/20 16:00 98.6 76 18 131/73 (92) 98 Intake and Output 01/30/20 01/31/20 19:00 07:00 Intake Total 300 ml Output Total 600 ml Balance -300 ml IV Total 300 ml Output Urine Total 600 ml # Bowel Movements 2 1 Current Medications Medications (Trade) Dose Ordered Sig/Jamal Route PRN Reason Start Time Stop Time Status Last Admin Dose Admin Acetaminophen (Tylenol) 650 mg Q6H PRN ORAL For Pain 3-6 / Fever >100.5 01/21/20 12:00 02/20/20 11:59 01/25/20 19:09 Amlodipine Besylate (Norvasc) 2.5 mg DAILY ORAL 01/22/20 09:00 02/21/20 08:59 01/31/20 09:01 Dextrose (Dextrose 50%) 25 ml Q30M PRN IV Hypoglycemia 01/21/20 12:00 04/20/20 11:59 Dextrose (Dextrose 50%) 50 ml Q30M PRN IV Hypoglycemia 01/21/20 12:00 04/20/20 11:59 Epoetin Andre (Epoetin Andre(ESRD on dialysis)) 10,000 unit THU-THU-THU SUBQ 01/23/20 21:00 04/22/20 20:59 01/30/20 21:02 Folic Acid (Folate) 5 mg DAILY ORAL 01/22/20 11:00 02/21/20 10:59 01/31/20 09:02 Linezolid (Zyvox) 600 mg EVERY 12 HOURS ORAL 01/31/20 21:00 02/05/20 20:59 Lisinopril (ZestriL) 10 mg DAILY ORAL 01/22/20 09:00 02/21/20 08:59 01/31/20 09:01 Loperamide HCl (Imodium) 2 mg TIDPRN PRN ORAL Diarrhea 01/23/20 09:45 02/22/20 09:44 01/29/20 20:33 Ondansetron HCl (Zofran) 4 mg Q6H PRN IVP Nausea & Vomiting 01/21/20 12:00 02/20/20 11:59 Pantoprazole (Protonix) 40 mg DAILY ORAL 01/22/20 09:00 02/21/20 08:59 01/31/20 09:01 Tamsulosin HCl (Flomax) 0.4 mg BID ORAL 01/21/20 18:00 02/20/20 17:59 01/31/20 09:01 Laboratory Tests 01/30/20 17:05: POC Whole Blood Glucose 138H 01/31/20 11:46: POC Whole Blood Glucose 137H Height (Feet): 5 Height (Inches): 5.00 Weight (Pounds): 110 General Appearance: no apparent distress, lethargic Cardiovascular: normal rate Respiratory/Chest: decreased breath sounds Abdomen: distended Objective No change Orlin Berrios MD Jan 31, 2020 12:21
[2020-01-31 16:00] VITALS: BP 128/66
[2020-01-31 20:00] VITALS: BP 128/70
[2020-02-01] VITALS: BP 135/72
[2020-02-01 04:27] VITALS: BP 130/63
--- NOTE | 2020-02-01 06:03 | General Progress Note ---
Subjective Allergies: Coded Allergies: No Known Allergies (Unverified , 04/21/18) Subjective doing ok weakness Objective Last 24 Hour Vital Signs Date Time Temp Pulse Resp B/P (MAP) Pulse Ox O2 Delivery O2 Flow Rate FiO2 02/01/20 04:27 97.0 94 19 130/63 (85) 98 02/01/20 00:00 97.7 90 19 135/72 (93) 98 01/31/20 21:46 Room Air 01/31/20 20:00 98.2 90 19 128/70 (89) 98 01/31/20 16:00 98.0 90 20 128/66 (86) 100 01/31/20 12:00 97.9 82 20 134/69 (90) 100 01/31/20 09:01 85 132/90 01/31/20 09:01 132/90 01/31/20 09:00 Room Air 01/31/20 08:00 97.9 85 20 132/90 (104) 95 Intake and Output 01/31/20 02/01/20 19:00 07:00 Intake Total 300 ml Balance 300 ml IV Total 300 ml # Voids 4 # Bowel Movements 5 1 Laboratory Tests 01/31/20 11:46: POC Whole Blood Glucose 137H 01/31/20 16:57: POC Whole Blood Glucose 113H Height (Feet): 5 Height (Inches): 5.00 Weight (Pounds): 110 General Appearance: alert EENT: normal ENT inspection Neck: supple Cardiovascular: regular rhythm Respiratory/Chest: normal breath sounds Abdomen: non tender, soft Assessment/Plan Assessment/Plan: 1 sepsis 2 diarrea 3 dm 2 4 esrdon hd 5 htn 6 weakness 7 bactremia id consult dc macrobid dc plan to snf waiting for covid test dw Kamron Ruiz MD Feb 01, 2020 06:03
[2020-02-01 08:00] VITALS: BP 130/65
[2020-02-01] MEDS: Lisinopril 10mg tab ORAL SCH (08:12)
[2020-02-01] MEDS: Tamsulosin 0.4mg cap ORAL SCH ×2 (09:37→17:21)
--- NOTE | 2020-02-01 10:21 | Pulmonology Progress Note ---
Subjective ROS Limited/Unobtainable: No Interval Events: None new Constitutional: Denies: fever, chills HEENT: Repors: no symptoms Respiratory: Reports: no symptoms Cardiovascular: Reports: no symptoms Gastrointestinal/Abdominal: Reports: diarrhea - decreased; Denies: nausea, vomiting Musculoskeletal: Denies: pain Allergies: Coded Allergies: No Known Allergies (Unverified , 04/21/18) Objective Last 24 Hour Vital Signs Date Time Temp Pulse Resp B/P (MAP) Pulse Ox O2 Delivery O2 Flow Rate FiO2 02/01/20 08:00 97.7 87 18 130/65 (86) 98 02/01/20 04:27 97.0 94 19 130/63 (85) 98 02/01/20 00:00 97.7 90 19 135/72 (93) 98 01/31/20 21:46 Room Air 01/31/20 20:00 98.2 90 19 128/70 (89) 98 01/31/20 16:00 98.0 90 20 128/66 (86) 100 01/31/20 12:00 97.9 82 20 134/69 (90) 100 Intake and Output 01/31/20 02/01/20 18:59 06:59 Intake Total 300 ml 200 ml Balance 300 ml 200 ml Intake Oral 200 ml IV Total 300 ml # Voids 4 3 # Bowel Movements 5 4 General Appearance: no acute distress HEENT: normocephalic Respiratory: chest wall non-tender, lungs clear Cardiovascular: normal peripheral pulses, normal rate Abdomen: normal bowel sounds, soft, non tender Extremities: no cyanosis Microbiology Date/Time Source Procedure Growth Status 01/30/20 11:40 Blood Blood Culture - Preliminary NO GROWTH AFTER 24 HOURS Resulted 01/30/20 11:30 Blood Blood Culture - Preliminary NO GROWTH AFTER 24 HOURS Resulted Laboratory Tests 01/31/20 11:46: POC Whole Blood Glucose 137H 01/31/20 16:57: POC Whole Blood Glucose 113H Current Medications Medications (Trade) Dose Ordered Sig/Jamal Route PRN Reason Start Time Stop Time Status Last Admin Dose Admin Acetaminophen (Tylenol) 650 mg Q6H PRN ORAL For Pain 3-6 / Fever >100.5 01/21/20 12:00 02/20/20 11:59 01/25/20 19:09 Amlodipine Besylate (Norvasc) 2.5 mg DAILY ORAL 01/22/20 09:00 02/21/20 08:59 01/31/20 09:01 Dextrose (Dextrose 50%) 25 ml Q30M PRN IV Hypoglycemia 01/21/20 12:00 04/20/20 11:59 Dextrose (Dextrose 50%) 50 ml Q30M PRN IV Hypoglycemia 01/21/20 12:00 04/20/20 11:59 Epoetin Andre (Epoetin Andre(ESRD on dialysis)) 10,000 unit SUBQ 01/23/20 21:00 04/22/20 20:59 01/30/20 21:02 Folic Acid (Folate) 5 mg DAILY ORAL 01/22/20 11:00 02/21/20 10:59 02/01/20 09:37 Linezolid (Zyvox) 600 mg EVERY 12 HOURS ORAL 01/31/20 21:00 02/05/20 20:59 02/01/20 09:36 Lisinopril (ZestriL) 10 mg DAILY ORAL 01/22/20 09:00 02/21/20 08:59 01/31/20 09:01 Loperamide HCl (Imodium) 2 mg TIDPRN PRN ORAL Diarrhea 01/23/20 09:45 02/22/20 09:44 01/31/20 20:19 Ondansetron HCl (Zofran) 4 mg Q6H PRN IVP Nausea & Vomiting 01/21/20 12:00 02/20/20 11:59 Pantoprazole (Protonix) 40 mg DAILY ORAL 01/22/20 09:00 02/21/20 08:59 02/01/20 09:36 Tamsulosin HCl (Flomax) 0.4 mg BID ORAL 01/21/20 18:00 02/20/20 17:59 02/01/20 09:37 Assessment/Plan Assessment/Plan IMPRESSION: 1. Mild pulmonary edema. 2. Hyperkalemia. 3. ESRD, on dialysis. 4. Hypertension. 5. Toxic-metabolic encephalopathy. DISCUSSION: The patient is confused and is not able to care for himself. He likely will need to be placed in a facility and be cared for dialysis. Continue oxygen prn only; currently on RA I will follow. Noted VRE bacteremia; on linezolid Nataliya Mclaughlin Omar Syed MD Feb 01, 2020 10:21
--- NOTE | 2020-02-01 11:30 | Infectious Diseases Prog Note ---
Assessment/Plan Assessment/Plan antibiotics : linezolid A 1. VRE sepsis 2. pneumonia 2. diabetes mellitus 4. hypertension 5. renal failure on HD 6. VRE UTI P 1. continue linezolid 1 more day 2. will follow up cultures Subjective Constitutional: Denies: fever, chills Respiratory: Denies: shortness of breath, dry cough Gastrointestinal/Abdominal: Denies: nausea, vomiting, diarrhea Musculoskeletal: Denies: pain Allergies: Coded Allergies: No Known Allergies (Unverified , 04/21/18) Objective Last 24 Hour Vital Signs Date Time Temp Pulse Resp B/P (MAP) Pulse Ox O2 Delivery O2 Flow Rate FiO2 02/01/20 08:00 97.7 87 18 130/65 (86) 98 02/01/20 04:27 97.0 94 19 130/63 (85) 98 02/01/20 00:00 97.7 90 19 135/72 (93) 98 01/31/20 21:46 Room Air 01/31/20 20:00 98.2 90 19 128/70 (89) 98 01/31/20 16:00 98.0 90 20 128/66 (86) 100 01/31/20 12:00 97.9 82 20 134/69 (90) 100 Height (Feet): 5 Height (Inches): 5.00 Weight (Pounds): 110 Respiratory/Chest: lungs clear Cardiovascular: normal rate, regular rhythm, no gallop/murmur Abdomen: soft, non tender Extremities: no edema, other - right subclavian catheter Microbiology Date/Time Source Procedure Growth Status 01/30/20 11:40 Blood Blood Culture - Preliminary NO GROWTH AFTER 24 HOURS Resulted 01/30/20 11:30 Blood Blood Culture - Preliminary NO GROWTH AFTER 24 HOURS Resulted Laboratory Tests Test 01/31/20 11:46 01/31/20 16:57 POC Whole Blood Glucose 137 MG/DL (74-106) H 113 MG/DL (74-106) H Current Medications Medications (Trade) Dose Ordered Sig/Jamal Route PRN Reason Start Time Stop Time Status Last Admin Dose Admin Acetaminophen (Tylenol) 650 mg Q6H PRN ORAL For Pain 3-6 / Fever >100.5 01/21/20 12:00 02/20/20 11:59 01/25/20 19:09 Amlodipine Besylate (Norvasc) 2.5 mg DAILY ORAL 01/22/20 09:00 02/21/20 08:59 01/31/20 09:01 Dextrose (Dextrose 50%) 25 ml Q30M PRN IV Hypoglycemia 01/21/20 12:00 04/20/20 11:59 Dextrose (Dextrose 50%) 50 ml Q30M PRN IV Hypoglycemia 01/21/20 12:00 04/20/20 11:59 Epoetin Andre (Epoetin Andre(ESRD on dialysis)) 10,000 unit SUBQ 01/23/20 21:00 04/22/20 20:59 01/30/20 21:02 Folic Acid (Folate) 5 mg DAILY ORAL 01/22/20 11:00 02/21/20 10:59 02/01/20 09:37 Linezolid (Zyvox) 600 mg EVERY 12 HOURS ORAL 01/31/20 21:00 02/05/20 20:59 02/01/20 09:36 Lisinopril (ZestriL) 10 mg DAILY ORAL 01/22/20 09:00 02/21/20 08:59 01/31/20 09:01 Loperamide HCl (Imodium) 2 mg TIDPRN PRN ORAL Diarrhea 01/23/20 09:45 02/22/20 09:44 01/31/20 20:19 Ondansetron HCl (Zofran) 4 mg Q6H PRN IVP Nausea & Vomiting 01/21/20 12:00 02/20/20 11:59 Pantoprazole (Protonix) 40 mg DAILY ORAL 01/22/20 09:00 02/21/20 08:59 02/01/20 09:36 Tamsulosin HCl (Flomax) 0.4 mg BID ORAL 01/21/20 18:00 02/20/20 17:59 02/01/20 09:37 Paolo Napier MD Feb 01, 2020 11:30
[2020-02-01 12:00] VITALS: BP 139/79
--- NOTE | 2020-02-01 13:06 | Nephrology Progress Note ---
Assessment/Plan Problem List: (1) Hyperkalemia (2) JONA (acute kidney injury) (3) Failure to thrive in adult (4) Anemia (5) Malnutrition Assessment: BMI 18.3 Assessment 1) JONA (acute kidney injury) (2) Hyperkalemia (3) Anemia (4) Metabolic acidosis (5) Ureter obstruction (6) Failure to thrive, BMI 18 Plan January 31: Due for dialysis today. No labs drawn today. Blood cultures for the past 4 days has been negative. Discharge planning in process. January 30: Dialyzed yesterday. Labs are reviewed. Due for dialysis tomorrow. Blood culture from January 26 - after 72 hours. Continue discharge planning. January 29: Due for dialysis today. Today's lab pending. Medication list reviewed. Surveillance blood culture ordered during hemodialysis today January 28: Status quo. Was dialyzed yesterday. Due for dialysis tomorrow. We will continue to monitor chemistries. Medication list reviewed. January 27: Status quo. Due for dialysis today. Medication list reviewed. Outpatient dialysis upon discharge. January 26: Status quo. Was dialyzed yesterday, dialysis again tomorrow. Continue current management. Outpatient dialysis upon discharge. January 25: Status quo. Due for dialysis today. Continue current management. January 24: Status quo. Dialysis tomorrow. Waiting for outpatient dialysis unit placement. January 23: Patient doing well. Labs reviewed. No blood work is available for today. Medication list reviewed. Will continue to dialysis as needed. Process of discharge and outpatient dialysis unit placement. January 22: Dialyzed yesterday. Today's labs reviewed. Medications reviewed. Outpatient dialysis unit placement to be processed. January 21: More Kayexalate for hyperkalemia. Due for dialysis today. Renal diet. Keep the blood pressure in check. Patient advised to be compliant through a gas mask assembler. Folic acid p.o. initiated Subjective ROS Limited/Unobtainable: No Constitutional: Reports: malaise Objective Objective Last 24 Hour Vital Signs Date Time Temp Pulse Resp B/P (MAP) Pulse Ox O2 Delivery O2 Flow Rate FiO2 02/01/20 12:00 97.0 92 20 139/79 (99) 98 02/01/20 08:00 97.7 87 18 130/65 (86) 98 02/01/20 04:27 97.0 94 19 130/63 (85) 98 02/01/20 00:00 97.7 90 19 135/72 (93) 98 01/31/20 21:46 Room Air 01/31/20 20:00 98.2 90 19 128/70 (89) 98 01/31/20 16:00 98.0 90 20 128/66 (86) 100 Intake and Output 01/31/20 02/01/20 19:00 07:00 Intake Total 300 ml 200 ml Balance 300 ml 200 ml Intake Oral 200 ml IV Total 300 ml # Voids 4 3 # Bowel Movements 5 4 Current Medications Medications (Trade) Dose Ordered Sig/Jamal Route PRN Reason Start Time Stop Time Status Last Admin Dose Admin Acetaminophen (Tylenol) 650 mg Q6H PRN ORAL For Pain 3-6 / Fever >100.5 01/21/20 12:00 02/20/20 11:59 01/25/20 19:09 Amlodipine Besylate (Norvasc) 2.5 mg DAILY ORAL 01/22/20 09:00 02/21/20 08:59 01/31/20 09:01 Dextrose (Dextrose 50%) 25 ml Q30M PRN IV Hypoglycemia 01/21/20 12:00 04/20/20 11:59 Dextrose (Dextrose 50%) 50 ml Q30M PRN IV Hypoglycemia 01/21/20 12:00 04/20/20 11:59 Epoetin Andre (Epoetin Andre(ESRD on dialysis)) 10,000 unit THU-THU-THU SUBQ 01/23/20 21:00 04/22/20 20:59 01/30/20 21:02 Folic Acid (Folate) 5 mg DAILY ORAL 01/22/20 11:00 02/21/20 10:59 02/01/20 09:37 Linezolid (Zyvox) 600 mg EVERY 12 HOURS ORAL 01/31/20 21:00 02/05/20 20:59 02/01/20 09:36 Lisinopril (ZestriL) 10 mg DAILY ORAL 01/22/20 09:00 02/21/20 08:59 01/31/20 09:01 Loperamide HCl (Imodium) 2 mg TIDPRN PRN ORAL Diarrhea 01/23/20 09:45 02/22/20 09:44 01/31/20 20:19 Ondansetron HCl (Zofran) 4 mg Q6H PRN IVP Nausea & Vomiting 01/21/20 12:00 02/20/20 11:59 Pantoprazole (Protonix) 40 mg DAILY ORAL 01/22/20 09:00 02/21/20 08:59 02/01/20 09:36 Tamsulosin HCl (Flomax) 0.4 mg BID ORAL 01/21/20 18:00 02/20/20 17:59 02/01/20 09:37 Laboratory Tests 01/31/20 16:57: POC Whole Blood Glucose 113H Height (Feet): 5 Height (Inches): 5.00 Weight (Pounds): 110 General Appearance: no apparent distress Cardiovascular: normal rate Respiratory/Chest: lungs clear Abdomen: soft Objective No change Orlin Berrios MD Feb 01, 2020 13:06
[2020-02-01 16:00] VITALS: BP 141/75
[2020-02-01 20:17] VITALS: BP 136/75
[2020-02-01] MEDS: Epoetin Alfa-EPBX(ESRD on dialysis)10,000 unit/ml vial SUBQ SCH (21:52)
[2020-02-02] VITALS: BP 147/78
[2020-02-02 04:00] VITALS: BP 137/70
[2020-02-02 07:30] LABS: HEMATOCRIT 22.2 % (42.0-52.0); HEMOGLOBIN 7.4 G/DL (14.2-18.0); MEAN CORPUSCULAR VOLUME 94 FL (80-99); PLATELET COUNT 157 K/UL (150-450); RED BLOOD COUNT 2.36 M/UL (4.70-6.10); RED CELL DISTRIBUTION WIDTH 15.9 % (11.6-14.8); WHITE BLOOD COUNT 8.9 K/UL (4.8-10.8)
[2020-02-02 07:47] LABS: ALBUMIN 1.7 G/DL (3.4-5.0); ALBUMIN/GLOBULIN RATIO 0.4 (1.0-2.7); BILIRUBIN,TOTAL 0.4 MG/DL (0.2-1.0); CALCIUM 7.4 MG/DL (8.5-10.1); PHOSPHORUS 3.3 MG/DL (2.5-4.9); POTASSIUM 4.2 MMOL/L (3.5-5.1)
[2020-02-02 08:00] VITALS: BP 140/64
[2020-02-02] MEDS: Lisinopril 10mg tab ORAL SCH (09:20)
[2020-02-02] MEDS: Tamsulosin 0.4mg cap ORAL SCH ×2 (09:20→17:45)
--- NOTE | 2020-02-02 10:20 | Nephrology Progress Note ---
Assessment/Plan Problem List: (1) Hyperkalemia (2) JONA (acute kidney injury) (3) Failure to thrive in adult (4) Anemia (5) Malnutrition Assessment: BMI 18.3 Assessment 1) JONA (acute kidney injury) (2) Hyperkalemia (3) Anemia (4) Metabolic acidosis (5) Ureter obstruction (6) Failure to thrive, BMI 18 Plan February 01: Dialyzed yesterday. Due for dialysis tomorrow. Blood cultures negative. Per consultants. Discharge planning. January 31: Due for dialysis today. No labs drawn today. Blood cultures for the past 4 days has been negative. Discharge planning in process. January 30: Dialyzed yesterday. Labs are reviewed. Due for dialysis tomorrow. Blood culture from January 26 - after 72 hours. Continue discharge planning. January 29: Due for dialysis today. Today's lab pending. Medication list reviewed. Surveillance blood culture ordered during hemodialysis today January 28: Status quo. Was dialyzed yesterday. Due for dialysis tomorrow. We will continue to monitor chemistries. Medication list reviewed. January 27: Status quo. Due for dialysis today. Medication list reviewed. Outpatient dialysis upon discharge. January 26: Status quo. Was dialyzed yesterday, dialysis again tomorrow. Continue current management. Outpatient dialysis upon discharge. January 25: Status quo. Due for dialysis today. Continue current management. January 24: Status quo. Dialysis tomorrow. Waiting for outpatient dialysis unit placement. January 23: Patient doing well. Labs reviewed. No blood work is available for today. Medication list reviewed. Will continue to dialysis as needed. Process of discharge and outpatient dialysis unit placement. January 22: Dialyzed yesterday. Today's labs reviewed. Medications reviewed. Outpatient dialysis unit placement to be processed. January 21: More Kayexalate for hyperkalemia. Due for dialysis today. Renal diet. Keep the blood pressure in check. Patient advised to be compliant through a director of retention. Folic acid p.o. initiated Subjective ROS Limited/Unobtainable: No Constitutional: Reports: malaise Objective Objective Last 24 Hour Vital Signs Date Time Temp Pulse Resp B/P (MAP) Pulse Ox O2 Delivery O2 Flow Rate FiO2 02/02/20 09:20 94 140/64 02/02/20 09:20 140/64 02/02/20 08:00 98.0 94 17 140/64 (89) 98 02/02/20 04:00 97.5 90 14 137/70 (92) 96 02/02/20 00:00 97.9 94 16 147/78 (101) 98 02/01/20 21:00 Room Air 02/01/20 20:17 83 136/75 (95) 02/01/20 16:00 97.4 97 20 141/75 (97) 97 02/01/20 12:00 97.0 92 20 139/79 (99) 98 Intake and Output 02/01/20 02/02/20 19:00 07:00 Intake Total 1080 ml Output Total 2 ml Balance 1080 ml -2 ml Intake Oral 1080 ml Output Urine Total 2 ml # Voids 2 # Bowel Movements 2 2 Current Medications Medications (Trade) Dose Ordered Sig/Jamal Route PRN Reason Start Time Stop Time Status Last Admin Dose Admin Acetaminophen (Tylenol) 650 mg Q6H PRN ORAL For Pain 3-6 / Fever >100.5 01/21/20 12:00 02/20/20 11:59 02/02/20 09:28 Amlodipine Besylate (Norvasc) 2.5 mg DAILY ORAL 01/22/20 09:00 02/21/20 08:59 02/02/20 09:20 Dextrose (Dextrose 50%) 25 ml Q30M PRN IV Hypoglycemia 01/21/20 12:00 04/20/20 11:59 Dextrose (Dextrose 50%) 50 ml Q30M PRN IV Hypoglycemia 01/21/20 12:00 04/20/20 11:59 Epoetin Andre (Epoetin Andre(ESRD on dialysis)) 10,000 unit THU-THU-THU SUBQ 01/23/20 21:00 04/22/20 20:59 02/01/20 21:52 Folic Acid (Folate) 5 mg DAILY ORAL 01/22/20 11:00 02/21/20 10:59 02/02/20 09:20 Linezolid (Zyvox) 600 mg EVERY 12 HOURS ORAL 01/31/20 21:00 02/05/20 20:59 02/02/20 09:20 Lisinopril (ZestriL) 10 mg DAILY ORAL 01/22/20 09:00 02/21/20 08:59 11/19/20 09:20 Loperamide HCl (Imodium) 2 mg TIDPRN PRN ORAL Diarrhea 01/23/20 09:45 02/22/20 09:44 01/31/20 20:19 Ondansetron HCl (Zofran) 4 mg Q6H PRN IVP Nausea & Vomiting 01/21/20 12:00 02/20/20 11:59 Pantoprazole (Protonix) 40 mg DAILY ORAL 01/22/20 09:00 02/21/20 08:59 02/02/20 09:20 Tamsulosin HCl (Flomax) 0.4 mg BID ORAL 01/21/20 18:00 02/20/20 17:59 02/02/20 09:20 Laboratory Tests 02/01/20 22:18: POC Whole Blood Glucose [Pending] 02/01/20 22:51: POC Whole Blood Glucose 178H 02/02/20 05:40: White Blood Count 8.9, Red Blood Count 2.36L, Hemoglobin 7.4L, Hematocrit 22.2L, Mean Corpuscular Volume 94, Mean Corpuscular Hemoglobin 31.4H, Mean Corpuscular Hemoglobin Concent 33.4, Red Cell Distribution Width 15.9H, Platelet Count 157, Mean Platelet Volume 5.4L, Neutrophils (%) (Auto) , Lymphocytes (%) (Auto) , Monocytes (%) (Auto) , Eosinophils (%) (Auto) , Basophils (%) (Auto) , Neutrophils % (Manual) [Pending], Lymphocytes % (Manual) [Pending], Platelet Estimate [Pending], Platelet Morphology [Pending], Sodium Level 135L, Potassium Level 4.2, Chloride Level 103, Carbon Dioxide Level 26, Anion Gap 7, Blood Urea Nitrogen 25H, Creatinine 3.0H, Estimat Glomerular Filtration Rate 21.2, Glucose Level 102, Calcium Level 7.4L, Phosphorus Level 3.3, Magnesium Level 1.9, Total Bilirubin 0.4, Aspartate Amino Transf (AST/SGOT) 16, Alanine Aminotransferase (ALT/SGPT) 9L, Alkaline Phosphatase 145H, C-Reactive Protein, Quantitative 9.2H, Total Protein 5.8L, Albumin 1.7L, Globulin 4.1, Albumin/Globulin Ratio 0.4L 02/02/20 06:17: POC Whole Blood Glucose 119H Height (Feet): 5 Height (Inches): 5.00 Weight (Pounds): 110 Cardiovascular: normal rate Respiratory/Chest: lungs clear Abdomen: soft Objective No change Orlin Berrios MD Feb 02, 2020 10:20
--- NOTE | 2020-02-02 10:53 | Pulmonology Progress Note ---
Subjective ROS Limited/Unobtainable: No Interval Events: None new Constitutional: Denies: fever, chills HEENT: Repors: no symptoms Respiratory: Reports: no symptoms Cardiovascular: Reports: no symptoms Gastrointestinal/Abdominal: Denies: nausea, vomiting, diarrhea Musculoskeletal: Denies: pain Allergies: Coded Allergies: No Known Allergies (Unverified , 04/21/18) Objective Last 24 Hour Vital Signs Date Time Temp Pulse Resp B/P (MAP) Pulse Ox O2 Delivery O2 Flow Rate FiO2 02/02/20 09:20 94 140/64 02/02/20 09:20 140/64 02/02/20 08:00 98.0 94 17 140/64 (89) 98 02/02/20 04:00 97.5 90 14 137/70 (92) 96 02/02/20 00:00 97.9 94 16 147/78 (101) 98 02/01/20 21:00 Room Air 02/01/20 20:17 83 136/75 (95) 02/01/20 16:00 97.4 97 20 141/75 (97) 97 02/01/20 12:00 97.0 92 20 139/79 (99) 98 Intake and Output 02/01/20 02/02/20 19:00 07:00 Intake Total 1080 ml Output Total 2 ml Balance 1080 ml -2 ml Intake Oral 1080 ml Output Urine Total 2 ml # Voids 2 # Bowel Movements 2 2 General Appearance: no acute distress HEENT: normocephalic Respiratory: chest wall non-tender, lungs clear Cardiovascular: normal peripheral pulses, normal rate Abdomen: normal bowel sounds, soft, non tender Extremities: no cyanosis Microbiology Date/Time Source Procedure Growth Status 01/30/20 11:40 Blood Blood Culture - Preliminary NO GROWTH AFTER 24 HOURS Resulted 01/30/20 11:30 Blood Blood Culture - Preliminary NO GROWTH AFTER 24 HOURS Resulted Laboratory Tests 02/01/20 22:18: POC Whole Blood Glucose [Pending] 02/01/20 22:51: POC Whole Blood Glucose 178H 02/02/20 05:40: White Blood Count 8.9, Red Blood Count 2.36L, Hemoglobin 7.4L, Hematocrit 22.2L, Mean Corpuscular Volume 94, Mean Corpuscular Hemoglobin 31.4H, Mean Corpuscular Hemoglobin Concent 33.4, Red Cell Distribution Width 15.9H, Platelet Count 157, Mean Platelet Volume 5.4L, Neutrophils (%) (Auto) , Lymphocytes (%) (Auto) , Monocytes (%) (Auto) , Eosinophils (%) (Auto) , Basophils (%) (Auto) , Differential Total Cells Counted 100, Neutrophils % (Manual) 83H, Lymphocytes % (Manual) 13L, Monocytes % (Manual) 4, Eosinophils % (Manual) 0, Basophils % (Manual) 0, Band Neutrophils 0, Platelet Estimate Adequate, Platelet Morphology Normal, Anisocytosis 1+, Sodium Level 135L, Potassium Level 4.2, Chloride Level 103, Carbon Dioxide Level 26, Anion Gap 7, Blood Urea Nitrogen 25H, Creatinine 3.0H, Estimat Glomerular Filtration Rate 21.2, Glucose Level 102, Calcium Level 7.4L, Phosphorus Level 3.3, Magnesium Level 1.9, Total Bilirubin 0.4, Aspartate Amino Transf (AST/SGOT) 16, Alanine Aminotransferase (ALT/SGPT) 9L, Alkaline Franklin sphatase 145H, C-Reactive Protein, Quantitative 9.2H, Total Protein 5.8L, Albumin 1.7L, Globulin 4.1, Albumin/Globulin Ratio 0.4L 02/02/20 06:17: POC Whole Blood Glucose 119H Current Medications Medications (Trade) Dose Ordered Sig/Jamal Route PRN Reason Start Time Stop Time Status Last Admin Dose Admin Acetaminophen (Tylenol) 650 mg Q6H PRN ORAL For Pain 3-6 / Fever >100.5 01/21/20 12:00 02/20/20 11:59 02/02/20 09:28 Amlodipine Besylate (Norvasc) 2.5 mg DAILY ORAL 01/22/20 09:00 02/21/20 08:59 02/02/20 09:20 Dextrose (Dextrose 50%) 25 ml Q30M PRN IV Hypoglycemia 01/21/20 12:00 04/20/20 11:59 Dextrose (Dextrose 50%) 50 ml Q30M PRN IV Hypoglycemia 01/21/20 12:00 04/20/20 11:59 Epoetin Andre (Epoetin Andre(ESRD on dialysis)) 10,000 unit THU-THU-THU SUBQ 01/23/20 21:00 04/22/20 20:59 02/01/20 21:52 Folic Acid (Folate) 5 mg DAILY ORAL 01/22/20 11:00 02/21/20 10:59 02/02/20 09:20 Linezolid (Zyvox) 600 mg EVERY 12 HOURS ORAL 01/31/20 21:00 02/05/20 20:59 02/02/20 09:20 Lisinopril (ZestriL) 10 mg DAILY ORAL 01/22/20 09:00 02/21/20 08:59 02/02/20 09:20 Loperamide HCl (Imodium) 2 mg TIDPRN PRN ORAL Diarrhea 01/23/20 09:45 02/22/20 09:44 01/31/20 20:19 Ondansetron HCl (Zofran) 4 mg Q6H PRN IVP Nausea & Vomiting 01/21/20 12:00 02/20/20 11:59 Pantoprazole (Protonix) 40 mg DAILY ORAL 01/22/20 09:00 02/21/20 08:59 02/02/20 09:20 Tamsulosin HCl (Flomax) 0.4 mg BID ORAL 01/21/20 18:00 02/20/20 17:59 02/02/20 09:20 Assessment/Plan Assessment/Plan IMPRESSION: 1. Mild pulmonary edema. 2. Hyperkalemia. 3. ESRD, on dialysis. 4. Hypertension. 5. Toxic-metabolic encephalopathy. DISCUSSION: The patient is confused and is not able to care for himself. He likely will need to be placed in a facility and be cared for dialysis. Continue oxygen prn only; currently on RA I will follow. Noted VRE bacteremia; on linezolid Nataliya Mclaughlin Omar Syed MD Feb 02, 2020 10:53
[2020-02-02 12:00] VITALS: BP 131/66
--- NOTE | 2020-02-02 12:22 | General Progress Note ---
Subjective Allergies: Coded Allergies: No Known Allergies (Unverified , 04/21/18) Subjective doing ok weakness anemia unable to walk with pt Objective Last 24 Hour Vital Signs Date Time Temp Pulse Resp B/P (MAP) Pulse Ox O2 Delivery O2 Flow Rate FiO2 02/02/20 09:20 94 140/64 02/02/20 09:20 140/64 02/02/20 08:00 98.0 94 17 140/64 (89) 98 02/02/20 04:00 97.5 90 14 137/70 (92) 96 02/02/20 00:00 97.9 94 16 147/78 (101) 98 02/01/20 21:00 Room Air 02/01/20 20:17 83 136/75 (95) 02/01/20 16:00 97.4 97 20 141/75 (97) 97 Intake and Output 02/01/20 02/02/20 19:00 07:00 Intake Total 1080 ml Output Total 2 ml Balance 1080 ml -2 ml Intake Oral 1080 ml Output Urine Total 2 ml # Voids 2 # Bowel Movements 2 2 Laboratory Tests 02/01/20 22:18: POC Whole Blood Glucose [Pending] 02/01/20 22:51: POC Whole Blood Glucose 178H 02/02/20 05:40: White Blood Count 8.9, Red Blood Count 2.36L, Hemoglobin 7.4L, Hematocrit 22.2L, Mean Corpuscular Volume 94, Mean Corpuscular Hemoglobin 31.4H, Mean Corpuscular Hemoglobin Concent 33.4, Red Cell Distribution Width 15.9H, Platelet Count 157, Mean Platelet Volume 5.4L, Neutrophils (%) (Auto) , Lymphocytes (%) (Auto) , Monocytes (%) (Auto) , Eosinophils (%) (Auto) , Basophils (%) (Auto) , Differential Total Cells Counted 100, Neutrophils % (Manual) 83H, Lymphocytes % (Manual) 13L, Monocytes % (Manual) 4, Eosinophils % (Manual) 0, Basophils % (Manual) 0, Band Neutrophils 0, Platelet Estimate Adequate, Platelet Morphology Normal, Anisocytosis 1+, Sodium Level 135L, Potassium Level 4.2, Chloride Level 103, Carbon Dioxide Level 26, Anion Gap 7, Blood Urea Nitrogen 25H, Creatinine 3.0H, Estimat Glomerular Filtration Rate 21.2, Glucose Level 102, Calcium Level 7.4L, Phosphorus Level 3.3, Magnesium Level 1.9, Total Bilirubin 0.4, Aspartate Amino Transf (AST/SGOT) 16, Alanine Aminotransferase (ALT/SGPT) 9L, Alkaline Phosphatase 145H, C-Reactive Protein, Quantitative 9.2H, Total Protein 5.8L, Albumin 1.7L, Globulin 4.1, Albumin/Globulin Ratio 0.4L 02/02/20 06:17: POC Whole Blood Glucose 119H 02/02/20 12:10: POC Whole Blood Glucose 139H Height (Feet): 5 Height (Inches): 5.00 Weight (Pounds): 110 General Appearance: alert EENT: PERRL/EOMI Neck: non-tender, supple Cardiovascular: regular rhythm Respiratory/Chest: normal breath sounds Abdomen: non tender, soft Skin: warm/dry Assessment/Plan Assessment/Plan: 1 sepsis 2 diarrea 3 dm 2 4 esrdon hd 5 htn 6 weakness 7 bactremia 8 anemia transfuse 1 u prbc id consult dc macrobid dc plan to snf waiting for covid test Kamron Phelan cm, MD Feb 02, 2020 12:21
--- NOTE | 2020-02-02 12:45 | Infectious Diseases Prog Note ---
Assessment/Plan Assessment/Plan A 1. VRE sepsis 2. pneumonia 2. diabetes mellitus 4. hypertension 5. renal failure on HD 6. VRE UTI 7. Anemia P 1. Discontinue linezolid 2. Observe off antibiotic Subjective ROS Limited/Unobtainable: Yes Constitutional: Reports: no symptoms Respiratory: Reports: no symptoms Gastrointestinal/Abdominal: Reports: no symptoms Genitourinary: Reports: no symptoms Allergies: Coded Allergies: No Known Allergies (Unverified , 04/21/18) Objective Last 24 Hour Vital Signs Date Time Temp Pulse Resp B/P (MAP) Pulse Ox O2 Delivery O2 Flow Rate FiO2 02/02/20 09:20 94 140/64 02/02/20 09:20 140/64 02/02/20 08:00 98.0 94 17 140/64 (89) 98 02/02/20 04:00 97.5 90 14 137/70 (92) 96 02/02/20 00:00 97.9 94 16 147/78 (101) 98 02/01/20 21:00 Room Air 02/01/20 20:17 83 136/75 (95) 02/01/20 16:00 97.4 97 20 141/75 (97) 97 Height (Feet): 5 Height (Inches): 5.00 Weight (Pounds): 110 General Appearance: no acute distress, cachetic HEENT: mucous membranes moist Respiratory/Chest: lungs clear Cardiovascular: normal rate, other - R chest Permacath Abdomen: soft, non tender Extremities: no edema Neurologic/Psychiatric: alert, responsive Laboratory Tests Test 02/01/20 22:18 02/01/20 22:51 02/02/20 05:40 02/02/20 06:17 POC Whole Blood Glucose Pending 178 MG/DL (74-106) H 119 MG/DL (74-106) H White Blood Count 8.9 K/UL (4.8-10.8) Red Blood Count 2.36 M/UL (4.70-6.10) L Hemoglobin 7.4 G/DL (14.2-18.0) L Hematocrit 22.2 % (42.0-52.0) L Mean Corpuscular Volume 94 FL (80-99) Mean Corpuscular Hemoglobin 31.4 PG (27.0-31.0) H Mean Corpuscular Hemoglobin Concent 33.4 G/DL (32.0-36.0) Red Cell Distribution Width 15.9 % (11.6-14.8) H Platelet Count 157 K/UL (150-450) Mean Platelet Volume 5.4 FL (6.5-10.1) L Neutrophils (%) (Auto) % (45.0-75.0) Lymphocytes (%) (Auto) % (20.0-45.0) Monocytes (%) (Auto) % (1.0-10.0) Eosinophils (%) (Auto) % (0.0-3.0) Basophils (%) (Auto) % (0.0-2.0) Differential Total Cells Counted 100 Neutrophils % (Manual) 83 % (45-75) H Lymphocytes % (Manual) 13 % (20-45) L Monocytes % (Manual) 4 % (1-10) Eosinophils % (Manual) 0 % (0-3) Basophils % (Manual) 0 % (0-2) Band Neutrophils 0 % (0-8) Platelet Estimate Adequate Platelet Morphology Normal Anisocytosis 1+ Sodium Level 135 MMOL/L (136-145) L Potassium Level 4.2 MMOL/L (3.5-5.1) Chloride Level 103 MMOL/L (98-107) Carbon Dioxide Level 26 MMOL/L (21-32) Anion Gap 7 mmol/L (5-15) Blood Urea Nitrogen 25 mg/dL (7-18) H Creatinine 3.0 MG/DL (0.55-1.30) H Estimat Glomerular Filtration Rate 21.2 mL/min (>60) Glucose Level 102 MG/DL (74-106) Calcium Level 7.4 MG/DL (8.5-10.1) L Phosphorus Level 3.3 MG/DL (2.5-4.9) Magnesium Level 1.9 MG/DL (1.8-2.4) Total Bilirubin 0.4 MG/DL (0.2-1.0) Aspartate Amino Transf (AST/SGOT) 16 U/L (15-37) Alanine Aminotransferase (ALT/SGPT) 9 U/L (12-78) L Alkaline Phosphatase 145 U/L (46-116) H C-Reactive Protein, Quantitative 9.2 mg/dL (0.00-0.90) H Total Protein 5.8 G/DL (6.4-8.2) L Albumin 1.7 G/DL (3.4-5.0) L Globulin 4.1 g/dL Albumin/Globulin Ratio 0.4 (1.0-2.7) L Test 02/02/20 12:10 POC Whole Blood Glucose 139 MG/DL (74-106) H Current Medications Medications (Trade) Dose Ordered Sig/Jamal Route PRN Reason Start Time Stop Time Status Last Admin Dose Admin Acetaminophen (Tylenol) 650 mg Q6H PRN ORAL For Pain 3-6 / Fever >100.5 01/21/20 12:00 02/20/20 11:59 02/02/20 09:28 Amlodipine Besylate (Norvasc) 2.5 mg DAILY ORAL 01/22/20 09:00 02/21/20 08:59 02/02/20 09:20 Dextrose (Dextrose 50%) 25 ml Q30M PRN IV Hypoglycemia 01/21/20 12:00 04/20/20 11:59 Dextrose (Dextrose 50%) 50 ml Q30M PRN IV Hypoglycemia 01/21/20 12:00 04/20/20 11:59 Epoetin Andre (Epoetin Andre(ESRD on dialysis)) 10,000 unit THU-THU-THU SUBQ 01/23/20 21:00 04/22/20 20:59 02/01/20 21:52 Folic Acid (Folate) 5 mg DAILY ORAL 01/22/20 11:00 02/21/20 10:59 02/02/20 09:20 Linezolid (Zyvox) 600 mg EVERY 12 HOURS ORAL 01/31/20 21:00 02/05/20 20:59 02/02/20 09:20 Lisinopril (ZestriL) 10 mg DAILY ORAL 01/22/20 09:00 02/21/20 08:59 02/02/20 09:20 Loperamide HCl (Imodium) 2 mg TIDPRN PRN ORAL Diarrhea 01/23/20 09:45 02/22/20 09:44 01/31/20 20:19 Ondansetron HCl (Zofran) 4 mg Q6H PRN IVP Nausea & Vomiting 01/21/20 12:00 02/20/20 11:59 Pantoprazole (Protonix) 40 mg DAILY ORAL 01/22/20 09:00 02/21/20 08:59 02/02/20 09:20 Tamsulosin HCl (Flomax) 0.4 mg BID ORAL 01/21/20 18:00 02/20/20 17:59 02/02/20 09:20 Thai Hale MD Feb 02, 2020 12:45
[2020-02-02 16:00] VITALS: BP 138/73
[2020-02-02 20:00] VITALS: BP 133/79
[2020-02-03] VITALS: BP 134/75
[2020-02-03 04:00] VITALS: BP 124/60
[2020-02-03 08:00] VITALS: BP 147/77
[2020-02-03] MEDS: Tamsulosin 0.4mg cap ORAL SCH ×2 (08:10→17:30)
[2020-02-03] MEDS: Lisinopril 10mg tab ORAL SCH (08:11)
--- NOTE | 2020-02-03 10:52 | Infectious Diseases Prog Note ---
Assessment/Plan Assessment/Plan antibiotics : none A 1. VRE sepsis s/p rx 2. pneumonia 2. diabetes mellitus 4. hypertension 5. renal failure on HD 6. VRE UTI s/p rx P 1. continue off antibiotics 2. will follow up cultures Subjective Constitutional: Denies: fever, chills Respiratory: Denies: shortness of breath, dry cough Gastrointestinal/Abdominal: Reports: diarrhea - mild; Denies: nausea, vomiting Musculoskeletal: Denies: pain Allergies: Coded Allergies: No Known Allergies (Unverified , 04/21/18) Objective Last 24 Hour Vital Signs Date Time Temp Pulse Resp B/P (MAP) Pulse Ox O2 Delivery O2 Flow Rate FiO2 02/03/20 08:11 88 147/77 02/03/20 08:11 147/77 02/03/20 08:00 97.9 20 147/77 (100) 97 02/03/20 04:00 97.6 88 18 124/60 (81) 97 02/03/20 00:00 98.0 90 18 134/75 (94) 97 02/02/20 20:44 Room Air 02/02/20 20:00 98.0 94 18 133/79 (97) 98 02/02/20 16:00 98.1 79 16 138/73 (94) 98 02/02/20 12:00 98.2 83 17 131/66 (87) 97 Height (Feet): 5 Height (Inches): 5.00 Weight (Pounds): 110 Respiratory/Chest: lungs clear Cardiovascular: normal rate, regular rhythm, no gallop/murmur Abdomen: soft, non tender Extremities: no edema, other - right subclavian catheter Laboratory Tests Test 02/02/20 12:10 02/03/20 07:06 POC Whole Blood Glucose 139 MG/DL (74-106) H 240 MG/DL (74-106) H Current Medications Medications (Trade) Dose Ordered Sig/Jamal Route PRN Reason Start Time Stop Time Status Last Admin Dose Admin Acetaminophen (Tylenol) 650 mg Q6H PRN ORAL For Pain 3-6 / Fever >100.5 01/21/20 12:00 02/20/20 11:59 02/02/20 09:28 Amlodipine Besylate (Norvasc) 2.5 mg DAILY ORAL 01/22/20 09:00 02/21/20 08:59 02/03/20 08:11 Dextrose (Dextrose 50%) 25 ml Q30M PRN IV Hypoglycemia 01/21/20 12:00 04/20/20 11:59 Dextrose (Dextrose 50%) 50 ml Q30M PRN IV Hypoglycemia 01/21/20 12:00 04/20/20 11:59 02/03/20 06:59 Epoetin Andre (Epoetin Andre(ESRD on dialysis)) 10,000 unit SUBQ 01/23/20 21:00 04/22/20 20:59 02/01/20 21:52 Folic Acid (Folate) 5 mg DAILY ORAL 01/22/20 11:00 02/21/20 10:59 02/03/20 08:15 Lisinopril (ZestriL) 10 mg DAILY ORAL 01/22/20 09:00 02/21/20 08:59 02/03/20 08:11 Loperamide HCl (Imodium) 2 mg TIDPRN PRN ORAL Diarrhea 01/23/20 09:45 02/22/20 09:44 02/03/20 08:11 Ondansetron HCl (Zofran) 4 mg Q6H PRN IVP Nausea & Vomiting 01/21/20 12:00 02/20/20 11:59 Pantoprazole (Protonix) 40 mg DAILY ORAL 01/22/20 09:00 02/21/20 08:59 02/03/20 08:10 Tamsulosin HCl (Flomax) 0.4 mg BID ORAL 01/21/20 18:00 02/20/20 17:59 02/03/20 08:10 Paolo Napier MD Feb 03, 2020 10:52
--- NOTE | 2020-02-03 11:34 | Pulmonology Progress Note ---
Subjective ROS Limited/Unobtainable: Yes Interval Events: None new Constitutional: Denies: fever, chills HEENT: Repors: no symptoms Respiratory: Reports: no symptoms Cardiovascular: Reports: no symptoms Gastrointestinal/Abdominal: Reports: diarrhea - mild; Denies: nausea, vomiting Musculoskeletal: Denies: pain Allergies: Coded Allergies: No Known Allergies (Unverified , 04/21/18) Objective Last 24 Hour Vital Signs Date Time Temp Pulse Resp B/P (MAP) Pulse Ox O2 Delivery O2 Flow Rate FiO2 02/03/20 08:11 88 147/77 02/03/20 08:11 147/77 02/03/20 08:00 97.9 20 147/77 (100) 97 02/03/20 04:00 97.6 88 18 124/60 (81) 97 02/03/20 00:00 98.0 90 18 134/75 (94) 97 02/02/20 20:44 Room Air 02/02/20 20:00 98.0 94 18 133/79 (97) 98 02/02/20 16:00 98.1 79 16 138/73 (94) 98 02/02/20 12:00 98.2 83 17 131/66 (87) 97 Intake and Output 02/02/20 02/03/20 19:00 07:00 Intake Total 480 ml 360 ml Balance 480 ml 360 ml Intake Oral 480 ml 360 ml # Voids 3 3 # Bowel Movements 3 4 General Appearance: no acute distress HEENT: normocephalic Respiratory: chest wall non-tender, lungs clear Cardiovascular: normal peripheral pulses, normal rate Abdomen: normal bowel sounds, soft, non tender Extremities: no cyanosis Laboratory Tests 02/02/20 12:10: POC Whole Blood Glucose 139H 02/03/20 07:06: POC Whole Blood Glucose 240H Current Medications Medications (Trade) Dose Ordered Sig/Jamal Route PRN Reason Start Time Stop Time Status Last Admin Dose Admin Acetaminophen (Tylenol) 650 mg Q6H PRN ORAL For Pain 3-6 / Fever >100.5 01/21/20 12:00 02/20/20 11:59 02/02/20 09:28 Amlodipine Besylate (Norvasc) 2.5 mg DAILY ORAL 01/22/20 09:00 02/21/20 08:59 02/03/20 08:11 Dextrose (Dextrose 50%) 25 ml Q30M PRN IV Hypoglycemia 01/21/20 12:00 04/20/20 11:59 Dextrose (Dextrose 50%) 50 ml Q30M PRN IV Hypoglycemia 01/21/20 12:00 04/20/20 11:59 02/03/20 06:59 Epoetin Andre (Epoetin Andre(ESRD on dialysis)) 10,000 unit THU- SUBQ 01/23/20 21:00 04/22/20 20:59 02/01/20 21:52 Folic Acid (Folate) 5 mg DAILY ORAL 01/22/20 11:00 02/21/20 10:59 02/03/20 08:15 Lisinopril (ZestriL) 10 mg DAILY ORAL 01/22/20 09:00 02/21/20 08:59 02/03/20 08:11 Loperamide HCl (Imodium) 2 mg TIDPRN PRN ORAL Diarrhea 01/23/20 09:45 02/22/20 09:44 02/03/20 08:11 Ondansetron HCl (Zofran) 4 mg Q6H PRN IVP Nausea & Vomiting 01/21/20 12:00 02/20/20 11:59 Pantoprazole (Protonix) 40 mg DAILY ORAL 01/22/20 09:00 02/21/20 08:59 02/03/20 08:10 Tamsulosin HCl (Flomax) 0.4 mg BID ORAL 01/21/20 18:00 02/20/20 17:59 02/03/20 08:10 Assessment/Plan Assessment/Plan IMPRESSION: 1. Mild pulmonary edema. 2. Hyperkalemia. 3. ESRD, on dialysis. 4. Hypertension. 5. Toxic-metabolic encephalopathy. DISCUSSION: The patient is confused and is not able to care for himself. He likely will need to be placed in a facility and be cared for dialysis. Continue oxygen prn only; currently on RA I will follow. Noted VRE bacteremia; on linezolid Nataliya Mclaughlin Omar Syed MD Feb 03, 2020 11:34
[2020-02-03 12:00] VITALS: BP 140/82
--- NOTE | 2020-02-03 13:41 | Nephrology Progress Note ---
Assessment/Plan Problem List: (1) Hyperkalemia (2) JONA (acute kidney injury) (3) Failure to thrive in adult (4) Anemia (5) Malnutrition Assessment: BMI 18.3 Assessment 1) JONA (acute kidney injury) (2) Hyperkalemia (3) Anemia (4) Metabolic acidosis (5) Ureter obstruction (6) Failure to thrive, BMI 18 Plan February 02: Last dialyzed January 31. Next dialysis for February 03. Continue per consultants. February 01: Dialyzed yesterday. Due for dialysis next 1 to 2 days. Blood cultures negative. Per consultants. Discharge planning. January 31: Due for dialysis today. No labs drawn today. Blood cultures for the past 4 days has been negative. Discharge planning in process. January 30: Dialyzed yesterday. Labs are reviewed. Due for dialysis tomorrow. Blood culture from January 26 - after 72 hours. Continue discharge planning. January 29: Due for dialysis today. Today's lab pending. Medication list reviewed. Surveillance blood culture ordered during hemodialysis today January 28: Status quo. Was dialyzed yesterday. Due for dialysis tomorrow. We will continue to monitor chemistries. Medication list reviewed. January 27: Status quo. Due for dialysis today. Medication list reviewed. Outpatient dialysis upon discharge. January 26: Status quo. Was dialyzed yesterday, dialysis again tomorrow. Continue current management. Outpatient dialysis upon discharge. January 25: Status quo. Due for dialysis today. Continue current management. January 24: Status quo. Dialysis tomorrow. Waiting for outpatient dialysis unit placement. January 23: Patient doing well. Labs reviewed. No blood work is available for today. Medication list reviewed. Will continue to dialysis as needed. Process of discharge and outpatient dialysis unit placement. January 22: Dialyzed yesterday. Today's labs reviewed. Medications reviewed. Outpatient dialysis unit placement to be processed. January 21: More Kayexalate for hyperkalemia. Due for dialysis today. Renal diet. Keep the blood pressure in check. Patient advised to be compliant through a instructor painting. Folic acid p.o. initiated Subjective ROS Limited/Unobtainable: No Constitutional: Reports: malaise Objective Objective Last 24 Hour Vital Signs Date Time Temp Pulse Resp B/P (MAP) Pulse Ox O2 Delivery O2 Flow Rate FiO2 02/03/20 12:00 97.8 89 20 140/82 (101) 96 02/03/20 08:11 88 147/77 02/03/20 08:11 147/77 02/03/20 08:00 97.9 20 147/77 (100) 97 02/03/20 04:00 97.6 88 18 124/60 (81) 97 02/03/20 00:00 98.0 90 18 134/75 (94) 97 02/02/20 20:44 Room Air 02/02/20 20:00 98.0 94 18 133/79 (97) 98 02/02/20 16:00 98.1 79 16 138/73 (94) 98 Intake and Output 02/02/20 02/03/20 19:00 07:00 Intake Total 480 ml 360 ml Balance 480 ml 360 ml Intake Oral 480 ml 360 ml # Voids 3 3 # Bowel Movements 3 4 Current Medications Medications (Trade) Dose Ordered Sig/Jamal Route PRN Reason Start Time Stop Time Status Last Admin Dose Admin Acetaminophen (Tylenol) 650 mg Q6H PRN ORAL For Pain 3-6 / Fever >100.5 01/21/20 12:00 02/20/20 11:59 02/02/20 09:28 Amlodipine Besylate (Norvasc) 2.5 mg DAILY ORAL 01/22/20 09:00 02/21/20 08:59 02/03/20 08:11 Dextrose (Dextrose 50%) 25 ml Q30M PRN IV Hypoglycemia 01/21/20 12:00 04/20/20 11:59 Dextrose (Dextrose 50%) 50 ml Q30M PRN IV Hypoglycemia 01/21/20 12:00 04/20/20 11:59 02/03/20 06:59 Epoetin Andre (Epoetin Andre(ESRD on dialysis)) 10,000 unit THU-THU-THU SUBQ 01/23/20 21:00 04/22/20 20:59 02/01/20 21:52 Folic Acid (Folate) 5 mg DAILY ORAL 01/22/20 11:00 02/21/20 10:59 02/03/20 08:15 Lisinopril (ZestriL) 10 mg DAILY ORAL 01/22/20 09:00 02/21/20 08:59 02/03/20 08:11 Loperamide HCl (Imodium) 2 mg TIDPRN PRN ORAL Diarrhea 01/23/20 09:45 02/22/20 09:44 02/03/20 08:11 Ondansetron HCl (Zofran) 4 mg Q6H PRN IVP Nausea & Vomiting 01/21/20 12:00 02/20/20 11:59 Pantoprazole (Protonix) 40 mg DAILY ORAL 01/22/20 09:00 02/21/20 08:59 02/03/20 08:10 Tamsulosin HCl (Flomax) 0.4 mg BID ORAL 01/21/20 18:00 02/20/20 17:59 02/03/20 08:10 Laboratory Tests 02/03/20 07:06: POC Whole Blood Glucose 240H Height (Feet): 5 Height (Inches): 5.00 Weight (Pounds): 110 General Appearance: no apparent distress Cardiovascular: normal rate Respiratory/Chest: decreased breath sounds Abdomen: soft Objective No change Orlin Berrios MD Feb 03, 2020 13:41
--- NOTE | 2020-02-03 14:40 | General Progress Note ---
Subjective Allergies: Coded Allergies: No Known Allergies (Unverified , 04/21/18) Subjective doing ok weakness anemia unable to walk with pt Objective Last 24 Hour Vital Signs Date Time Temp Pulse Resp B/P (MAP) Pulse Ox O2 Delivery O2 Flow Rate FiO2 02/03/20 12:00 97.8 89 20 140/82 (101) 96 02/03/20 08:11 88 147/77 02/03/20 08:11 147/77 02/03/20 08:00 97.9 20 147/77 (100) 97 02/03/20 04:00 97.6 88 18 124/60 (81) 97 02/03/20 00:00 98.0 90 18 134/75 (94) 97 02/02/20 20:44 Room Air 02/02/20 20:00 98.0 94 18 133/79 (97) 98 02/02/20 16:00 98.1 79 16 138/73 (94) 98 Intake and Output 02/02/20 02/03/20 19:00 07:00 Intake Total 480 ml 360 ml Balance 480 ml 360 ml Intake Oral 480 ml 360 ml # Voids 3 3 # Bowel Movements 3 4 Laboratory Tests 02/03/20 07:06: POC Whole Blood Glucose 240H Height (Feet): 5 Height (Inches): 5.00 Weight (Pounds): 110 General Appearance: alert Neck: supple Cardiovascular: regular rhythm Respiratory/Chest: lungs clear Abdomen: non tender, soft Assessment/Plan Assessment/Plan: 1 sepsis 2 diarrea 3 dm 2 4 esrdon hd 5 htn 6 weakness 7 bactremia 8 anemia transfuse 1 u prbc id consult dc macrobid dc plan to snf waiting for covid test Kamron Phelan cm, MD Feb 03, 2020 14:40
[2020-02-03 16:00] VITALS: BP 140/72
--- NOTE | 2020-02-03 17:11 | Cardiology Report ---
APPROVED REPORT EKG Measurement Heart [id number] <Conclusion> Normal sinus rhythm Possible Left atrial enlargement Left axis deviation Anterior infarct, age undetermined Abnormal ECG
[2020-02-03 20:00] VITALS: BP 139/78
[2020-02-03] MEDS: Epoetin Alfa-EPBX(ESRD on dialysis)10,000 unit/ml vial SUBQ SCH (20:44)
[2020-02-04] VITALS: BP 134/82
[2020-02-04 04:00] VITALS: BP 117/77
[2020-02-04 08:00] VITALS: BP 130/66
[2020-02-04] MEDS: Lisinopril 10mg tab ORAL SCH (08:20)
[2020-02-04] MEDS: Tamsulosin 0.4mg cap ORAL SCH ×2 (08:28→17:12)
[2020-02-04 09:58] LABS: BASOPHILS % (AUTO) 1.6 % (0.0-2.0); EOSINOPHILS % (AUTO) 2.6 % (0.0-3.0); HEMATOCRIT 28.8 % (42.0-52.0); HEMOGLOBIN 9.2 G/DL (14.2-18.0); LYMPHOCYTES % (AUTO) 14.2 % (20.0-45.0); MEAN CORPUSCULAR VOLUME 98 FL (80-99); MONOCYTES % (AUTO) 2.5 % (1.0-10.0); NEUTROPHILS % (AUTO) 79.2 % (45.0-75.0); PLATELET COUNT 151 K/UL (150-450); RED BLOOD COUNT 2.95 M/UL (4.70-6.10); RED CELL DISTRIBUTION WIDTH 15.4 % (11.6-14.8); WHITE BLOOD COUNT 10.2 K/UL (4.8-10.8)
[2020-02-04 10:37] LABS: CALCIUM 7.6 MG/DL (8.5-10.1); CREATININE 4.2 MG/DL (0.55-1.30); POTASSIUM 5.5 MMOL/L (3.5-5.1)
--- NOTE | 2020-02-04 10:56 | Nephrology Progress Note ---
Assessment/Plan Problem List: (1) Hyperkalemia (2) JONA (acute kidney injury) (3) Failure to thrive in adult (4) Anemia (5) Malnutrition Assessment: BMI 18.3 Assessment 1) JONA (acute kidney injury) (2) Hyperkalemia (3) Anemia (4) Metabolic acidosis (5) Ureter obstruction (6) Failure to thrive, BMI 18 Plan February 03: Due for dialysis today. Labs reviewed. Continue per current management. February 02: Last dialyzed January 31. Next dialysis for February 03. Continue per consultants. February 01: Dialyzed yesterday. Due for dialysis next 1 to 2 days. Blood cultures negative. Per consultants. Discharge planning. January 31: Due for dialysis today. No labs drawn today. Blood cultures for the past 4 days has been negative. Discharge planning in process. January 30: Dialyzed yesterday. Labs are reviewed. Due for dialysis tomorrow. Blood culture from January 26 - after 72 hours. Continue discharge planning. January 29: Due for dialysis today. Today's lab pending. Medication list reviewed. Surveillance blood culture ordered during hemodialysis today January 28: Status quo. Was dialyzed yesterday. Due for dialysis tomorrow. We will continue to monitor chemistries. Medication list reviewed. January 27: Status quo. Due for dialysis today. Medication list reviewed. Outpatient dialysis upon discharge. January 26: Status quo. Was dialyzed yesterday, dialysis again tomorrow. Continue current management. Outpatient dialysis upon discharge. January 25: Status quo. Due for dialysis today. Continue current management. January 24: Status quo. Dialysis tomorrow. Waiting for outpatient dialysis unit placement. January 23: Patient doing well. Labs reviewed. No blood work is available for today. Medication list reviewed. Will continue to dialysis as needed. Process of discharge and outpatient dialysis unit placement. January 22: Dialyzed yesterday. Today's labs reviewed. Medications reviewed. Outpatient dialysis unit placement to be processed. January 21: More Kayexalate for hyperkalemia. Due for dialysis today. Renal diet. Keep the blood pressure in check. Patient advised to be compliant through a toy assembler. Folic acid p.o. initiated Subjective ROS Limited/Unobtainable: No Constitutional: Reports: malaise Objective Objective Last 24 Hour Vital Signs Date Time Temp Pulse Resp B/P (MAP) Pulse Ox O2 Delivery O2 Flow Rate FiO2 11/21/20 08:20 130/66 02/04/20 08:19 86 130/66 02/04/20 08:00 98.2 86 16 130/66 (87) 96 02/04/20 04:00 98.2 93 18 117/77 (90) 96 02/04/20 00:00 98.2 99 18 134/82 (99) 95 02/03/20 21:00 Room Air 02/03/20 20:00 98.8 95 18 139/78 (98) 96 02/03/20 16:00 98.0 89 18 140/72 (94) 94 02/03/20 12:00 97.8 89 20 140/82 (101) 96 Intake and Output 02/03/20 02/04/20 19:00 07:00 Intake Total 600 ml 200 ml Balance 600 ml 200 ml Intake Oral 600 ml Other 200 ml # Voids 2 2 # Bowel Movements 2 2 Current Medications Medications (Trade) Dose Ordered Sig/Jamal Route PRN Reason Start Time Stop Time Status Last Admin Dose Admin Acetaminophen (Tylenol) 650 mg Q6H PRN ORAL For Pain 3-6 / Fever >100.5 01/21/20 12:00 02/20/20 11:59 02/02/20 09:28 Amlodipine Besylate (Norvasc) 2.5 mg DAILY ORAL 01/22/20 09:00 02/21/20 08:59 02/03/20 08:11 Dextrose (Dextrose 50%) 25 ml Q30M PRN IV Hypoglycemia 01/21/20 12:00 04/20/20 11:59 Dextrose (Dextrose 50%) 50 ml Q30M PRN IV Hypoglycemia 01/21/20 12:00 04/20/20 11:59 02/03/20 06:59 Epoetin Andre (Epoetin Andre(ESRD on dialysis)) 10,000 unit THU-THU-THU SUBQ 01/23/20 21:00 04/22/20 20:59 02/03/20 20:44 Folic Acid (Folate) 5 mg DAILY ORAL 01/22/20 11:00 02/21/20 10:59 02/04/20 08:29 Lisinopril (ZestriL) 10 mg DAILY ORAL 01/22/20 09:00 02/21/20 08:59 02/03/20 08:11 Loperamide HCl (Imodium) 2 mg TIDPRN PRN ORAL Diarrhea 01/23/20 09:45 02/22/20 09:44 02/04/20 08:28 Ondansetron HCl (Zofran) 4 mg Q6H PRN IVP Nausea & Vomiting 01/21/20 12:00 02/20/20 11:59 Pantoprazole (Protonix) 40 mg DAILY ORAL 01/22/20 09:00 02/21/20 08:59 02/04/20 08:28 Tamsulosin HCl (Flomax) 0.4 mg BID ORAL 01/21/20 18:00 02/20/20 17:59 02/04/20 08:28 Laboratory Tests 02/04/20 09:45: White Blood Count 10.2, Red Blood Count 2.95L, Hemoglobin 9.2L, Hematocrit 28.8L , Mean Corpuscular Volume 98, Mean Corpuscular Hemoglobin 31.1H, Mean Corpuscular Hemoglobin Concent 31.8L, Red Cell Distribution Width 15.4H, Platelet Count 151, Mean Platelet Volume 5.3L, Neutrophils (%) (Auto) 79.2H, Lymphocytes (%) (Auto) 14.2L, Monocytes (%) (Auto) 2.5, Eosinophils (%) (Auto) 2.6, Basophils (%) (Auto) 1.6, Sodium Level 136, Potassium Level 5.5H, Chloride Level 105, Carbon Dioxide Level 24, Anion Gap 7, Blood Urea Nitrogen 48H, Creatinine 4.2H, Estimat Glomerular Filtration Rate 14.4, Glucose Level 90, Calcium Level 7.6L Height (Feet): 5 Height (Inches): 5.00 Weight (Pounds): 110 General Appearance: no apparent distress Objective No change Orlin Berrios MD Feb 04, 2020 10:56
[2020-02-04 12:00] VITALS: BP 154/82
--- NOTE | 2020-02-04 12:09 | Pulmonology Progress Note ---
Subjective ROS Limited/Unobtainable: No Interval Events: None new Constitutional: Denies: fever, chills HEENT: Repors: no symptoms Respiratory: Reports: no symptoms Cardiovascular: Reports: no symptoms Gastrointestinal/Abdominal: Reports: diarrhea - mild; Denies: nausea, vomiting Musculoskeletal: Denies: pain Allergies: Coded Allergies: No Known Allergies (Unverified , 04/21/18) Objective Last 24 Hour Vital Signs Date Time Temp Pulse Resp B/P (MAP) Pulse Ox O2 Delivery O2 Flow Rate FiO2 02/04/20 08:20 130/66 02/04/20 08:19 86 130/66 02/04/20 08:00 98.2 86 16 130/66 (87) 96 02/04/20 04:00 98.2 93 18 117/77 (90) 96 02/04/20 00:00 98.2 99 18 134/82 (99) 95 02/03/20 21:00 Room Air 02/03/20 20:00 98.8 95 18 139/78 (98) 96 02/03/20 16:00 98.0 89 18 140/72 (94) 94 Intake and Output 02/03/20 02/04/20 19:00 07:00 Intake Total 600 ml 200 ml Balance 600 ml 200 ml Intake Oral 600 ml Other 200 ml # Voids 2 2 # Bowel Movements 2 2 General Appearance: no acute distress HEENT: normocephalic Respiratory: chest wall non-tender, lungs clear Cardiovascular: normal peripheral pulses, normal rate Abdomen: normal bowel sounds, soft, non tender Extremities: no cyanosis Laboratory Tests 02/04/20 09:45: White Blood Count 10.2, Red Blood Count 2.95L, Hemoglobin 9.2L, Hematocrit 28.8L , Mean Corpuscular Volume 98, Mean Corpuscular Hemoglobin 31.1H, Mean Corpuscular Hemoglobin Concent 31.8L, Red Cell Distribution Width 15.4H, Platelet Count 151, Mean Platelet Volume 5.3L, Neutrophils (%) (Auto) 79.2H, Lymphocytes (%) (Auto) 14.2L, Monocytes (%) (Auto) 2.5, Eosinophils (%) (Auto) 2.6, Basophils (%) (Auto) 1.6, Sodium Level 136, Potassium Level 5.5H, Chloride Level 105, Carbon Dioxide Level 24, Anion Gap 7, Blood Urea Nitrogen 48H, Creatinine 4.2H, Estimat Glomerular Filtration Rate 14.4, Glucose Level 90, Calcium Level 7.6L 02/04/20 11:47: POC Whole Blood Glucose 86 Current Medications Medications (Trade) Dose Ordered Sig/Jamal Route PRN Reason Start Time Stop Time Status Last Admin Dose Admin Acetaminophen (Tylenol) 650 mg Q6H PRN ORAL For Pain 3-6 / Fever >100.5 01/21/20 12:00 02/20/20 11:59 02/02/20 09:28 Amlodipine Besylate (Norvasc) 2.5 mg DAILY ORAL 01/22/20 09:00 02/21/20 08:59 02/03/20 08:11 Dextrose (Dextrose 50%) 25 ml Q30M PRN IV Hypoglycemia 01/21/20 12:00 04/20/20 11:59 Dextrose (Dextrose 50%) 50 ml Q30M PRN IV Hypoglycemia 01/21/20 12:00 04/20/20 11:59 02/03/20 06:59 Epoetin Andre (Epoetin Andre(ESRD on dialysis)) 10,000 unit THU-THU-THU SUBQ 01/23/20 21:00 04/22/20 20:59 02/03/20 20:44 Folic Acid (Folate) 5 mg DAILY ORAL 01/22/20 11:00 02/21/20 10:59 02/04/20 08:29 Lisinopril (ZestriL) 10 mg DAILY ORAL 01/22/20 09:00 02/21/20 08:59 02/03/20 08:11 Loperamide HCl (Imodium) 2 mg TIDPRN PRN ORAL Diarrhea 01/23/20 09:45 02/22/20 09:44 02/04/20 08:28 Ondansetron HCl (Zofran) 4 mg Q6H PRN IVP Nausea & Vomiting 01/21/20 12:00 02/20/20 11:59 Pantoprazole (Protonix) 40 mg DAILY ORAL 01/22/20 09:00 02/21/20 08:59 02/04/20 08:28 Tamsulosin HCl (Flomax) 0.4 mg BID ORAL 01/21/20 18:00 02/20/20 17:59 11/21/20 08:28 Assessment/Plan Assessment/Plan IMPRESSION: 1. Mild pulmonary edema. 2. Hyperkalemia. 3. ESRD, on dialysis. 4. Hypertension. 5. Toxic-metabolic encephalopathy. DISCUSSION: The patient is confused and is not able to care for himself. He likely will need to be placed in a facility and be cared for dialysis. Continue oxygen prn only; currently on RA I will follow. Noted VRE bacteremia; on linezolid Nataliya Mclaughlin Omar Syed MD Feb 04, 2020 12:09
--- NOTE | 2020-02-04 13:12 | Infectious Diseases Prog Note ---
Assessment/Plan Assessment/Plan A 1. VRE sepsis treated 2. pneumonia 2. diabetes mellitus 4. hypertension 5. renal failure on HD 6. VRE UTI 7. Anemia P 1. Observe off antibiotic Subjective ROS Limited/Unobtainable: Yes Respiratory: Reports: no symptoms Gastrointestinal/Abdominal: Reports: no symptoms Allergies: Coded Allergies: No Known Allergies (Unverified , 04/21/18) Objective Last 24 Hour Vital Signs Date Time Temp Pulse Resp B/P (MAP) Pulse Ox O2 Delivery O2 Flow Rate FiO2 02/04/20 12:00 97.7 87 16 154/82 (106) 96 02/04/20 08:20 130/66 02/04/20 08:19 86 130/66 02/04/20 08:00 98.2 86 16 130/66 (87) 96 02/04/20 04:00 98.2 93 18 117/77 (90) 96 02/04/20 00:00 98.2 99 18 134/82 (99) 95 02/03/20 21:00 Room Air 02/03/20 20:00 98.8 95 18 139/78 (98) 96 02/03/20 16:00 98.0 89 18 140/72 (94) 94 Height (Feet): 5 Height (Inches): 5.00 Weight (Pounds): 110 General Appearance: no acute distress, cachetic HEENT: mucous membranes moist Respiratory/Chest: lungs clear Cardiovascular: normal rate, other - R Permacth Abdomen: soft, non tender Extremities: no edema Neurologic/Psychiatric: alert, responsive Musculoskeletal: atrophy Laboratory Tests Test 02/04/20 09:45 02/04/20 11:47 White Blood Count 10.2 K/UL (4.8-10.8) Red Blood Count 2.95 M/UL (4.70-6.10) L Hemoglobin 9.2 G/DL (14.2-18.0) L Hematocrit 28.8 % (42.0-52.0) L Mean Corpuscular Volume 98 FL (80-99) Mean Corpuscular Hemoglobin 31.1 PG (27.0-31.0) H Mean Corpuscular Hemoglobin Concent 31.8 G/DL (32.0-36.0) L Red Cell Distribution Width 15.4 % (11.6-14.8) H Platelet Count 151 K/UL (150-450) Mean Platelet Volume 5.3 FL (6.5-10.1) L Neutrophils (%) (Auto) 79.2 % (45.0-75.0) H Lymphocytes (%) (Auto) 14.2 % (20.0-45.0) L Monocytes (%) (Auto) 2.5 % (1.0-10.0) Eosinophils (%) (Auto) 2.6 % (0.0-3.0) Basophils (%) (Auto) 1.6 % (0.0-2.0) Sodium Level 136 MMOL/L (136-145) Potassium Level 5.5 MMOL/L (3.5-5.1) H Chloride Level 105 MMOL/L (98-107) Carbon Dioxide Level 24 MMOL/L (21-32) Anion Gap 7 mmol/L (5-15) Blood Urea Nitrogen 48 mg/dL (7-18) H Creatinine 4.2 MG/DL (0.55-1.30) H Estimat Glomerular Filtration Rate 14.4 mL/min (>60) Glucose Level 90 MG/DL (74-106) Calcium Level 7.6 MG/DL (8.5-10.1) L POC Whole Blood Glucose 86 MG/DL (74-106) Current Medications Medications (Trade) Dose Ordered Sig/Jamal Route PRN Reason Start Time Stop Time Status Last Admin Dose Admin Acetaminophen (Tylenol) 650 mg Q6H PRN ORAL For Pain 3-6 / Fever >100.5 01/21/20 12:00 02/20/20 11:59 02/02/20 09:28 Amlodipine Besylate (Norvasc) 2.5 mg DAILY ORAL 01/22/20 09:00 02/21/20 08:59 02/03/20 08:11 Dextrose (Dextrose 50%) 25 ml Q30M PRN IV Hypoglycemia 01/21/20 12:00 04/20/20 11:59 Dextrose (Dextrose 50%) 50 ml Q30M PRN IV Hypoglycemia 01/21/20 12:00 04/20/20 11:59 02/03/20 06:59 Epoetin Andre (Epoetin Andre(ESRD on dialysis)) 10,000 unit THU-THU-THU SUBQ 01/23/20 21:00 04/22/20 20:59 02/03/20 20:44 Folic Acid (Folate) 5 mg DAILY ORAL 01/22/20 11:00 02/21/20 10:59 02/04/20 08:29 Lisinopril (ZestriL) 10 mg DAILY ORAL 01/22/20 09:00 02/21/20 08:59 02/03/20 08:11 Loperamide HCl (Imodium) 2 mg TIDPRN PRN ORAL Diarrhea 01/23/20 09:45 02/22/20 09:44 02/04/20 08:28 Ondansetron HCl (Zofran) 4 mg Q6H PRN IVP Nausea & Vomiting 01/21/20 12:00 02/20/20 11:59 Pantoprazole (Protonix) 40 mg DAILY ORAL 01/22/20 09:00 02/21/20 08:59 02/04/20 08:28 Tamsulosin HCl (Flomax) 0.4 mg BID ORAL 01/21/20 18:00 02/20/20 17:59 02/04/20 08:28 Thai Hale MD Feb 04, 2020 13:12
[2020-02-04 16:00] VITALS: BP 143/76
[2020-02-04 20:00] VITALS: BP 150/83
[2020-02-05] VITALS: BP 115/60
[2020-02-05 04:00] VITALS: BP 121/62
[2020-02-05 07:48] LABS: BASOPHILS % (AUTO) 2.3 % (0.0-2.0); EOSINOPHILS % (AUTO) 2.2 % (0.0-3.0); HEMATOCRIT 25.1 % (42.0-52.0); HEMOGLOBIN 8.1 G/DL (14.2-18.0); LYMPHOCYTES % (AUTO) 12.4 % (20.0-45.0); MEAN CORPUSCULAR VOLUME 97 FL (80-99); MONOCYTES % (AUTO) 4.5 % (1.0-10.0); NEUTROPHILS % (AUTO) 78.7 % (45.0-75.0); PLATELET COUNT 121 K/UL (150-450); RED BLOOD COUNT 2.59 M/UL (4.70-6.10); RED CELL DISTRIBUTION WIDTH 14.8 % (11.6-14.8); WHITE BLOOD COUNT 8.3 K/UL (4.8-10.8)
[2020-02-05 08:00] VITALS: BP 135/69
[2020-02-05 08:15] LABS: ALBUMIN 1.8 G/DL (3.4-5.0); ALBUMIN/GLOBULIN RATIO 0.4 (1.0-2.7); BILIRUBIN,TOTAL 0.4 MG/DL (0.2-1.0); CALCIUM 6.4 MG/DL (8.5-10.1); CREATININE 2.8 MG/DL (0.55-1.30)
[2020-02-05] MEDS: Lisinopril 10mg tab ORAL SCH (08:33)
[2020-02-05] MEDS: Tamsulosin 0.4mg cap ORAL SCH ×2 (08:33→17:02)
--- NOTE | 2020-02-05 10:04 | Pulmonology Progress Note ---
Subjective ROS Limited/Unobtainable: Yes Interval Events: None new Constitutional: Denies: fever, chills HEENT: Repors: no symptoms Respiratory: Reports: no symptoms Cardiovascular: Reports: no symptoms Gastrointestinal/Abdominal: Reports: no symptoms Musculoskeletal: Denies: pain Allergies: Coded Allergies: No Known Allergies (Unverified , 04/21/18) Objective Last 24 Hour Vital Signs Date Time Temp Pulse Resp B/P (MAP) Pulse Ox O2 Delivery O2 Flow Rate FiO2 02/05/20 08:33 84 135/69 02/05/20 08:33 135/69 02/05/20 08:00 97.8 84 18 135/69 (91) 95 02/05/20 04:00 97.9 100 18 121/62 (81) 97 02/05/20 00:00 98.1 97 17 115/60 (78) 97 02/04/20 21:00 Room Air 02/04/20 20:00 97.9 104 18 150/83 (105) 97 02/04/20 16:00 98.8 95 18 143/76 (98) 96 02/04/20 12:00 97.7 87 16 154/82 (106) 96 Intake and Output 02/04/20 02/05/20 19:00 07:00 Intake Total 960 ml 300 ml Output Total 450 ml Balance 510 ml 300 ml Intake Oral 960 ml 300 ml Output Urine Total 450 ml # Voids 3 # Bowel Movements 2 4 General Appearance: no acute distress HEENT: normocephalic Respiratory: chest wall non-tender, lungs clear Cardiovascular: normal peripheral pulses, normal rate Abdomen: normal bowel sounds, soft, non tender Extremities: no cyanosis Laboratory Tests 02/04/20 11:47: POC Whole Blood Glucose 86 02/04/20 16:00: POC Whole Blood Glucose 103 02/04/20 21:36: POC Whole Blood Glucose [Pending] 02/05/20 05:20: POC Whole Blood Glucose [Pending] 02/05/20 05:35: POC Whole Blood Glucose 74 02/05/20 07:25: White Blood Count 8.3, Red Blood Count 2.59L, Hemoglobin 8.1L, Hematocrit 25.1L, Mean Corpuscular Volume 97, Mean Corpuscular Hemoglobin 31.3H, Mean Corpuscular Hemoglobin Concent 32.4, Red Cell Distribution Width 14.8, Platelet Count 121L, Mean Platelet Volume 5.8L, Neutrophils (%) (Auto) 78.7H, Lymphocytes (%) (Auto) 12.4L, Monocytes (%) (Auto) 4.5, Eosinophils (%) (Auto) 2.2, Basophils (%) (Auto) 2.3H, Sodium Level 137, Potassium Level 4.0, Chloride Level 104, Carbon Dioxide Level 26, Anion Gap 7, Blood Urea Nitrogen 27H, Creatinine 2.8H, Estimat Glomerular Filtration Rate 22.9, Glucose Level 74, Calcium Level 6.4L, Phosphorus Level 3.0, Total Bilirubin 0.4, Aspartate Amino Transf (AST/SGOT) 16, Alanine Aminotransferase (ALT/SGPT) 12, Alkaline Phosphatase 173H, Total Protein 6.1L, Albumin 1.8L, Globulin 4.3, Albumin/Globulin Ratio 0.4L Current Medications Medications (Trade) Dose Ordered Sig/Jamal Route PRN Reason Start Time Stop Time Status Last Admin Dose Admin Acetaminophen (Tylenol) 650 mg Q6H PRN ORAL For Pain 3-6 / Fever >100.5 01/21/20 12:00 02/20/20 11:59 02/02/20 09:28 Amlodipine Besylate (Norvasc) 2.5 mg DAILY ORAL 01/22/20 09:00 02/21/20 08:59 02/05/20 08:33 Dextrose (Dextrose 50%) 25 ml Q30M PRN IV Hypoglycemia 01/21/20 12:00 04/20/20 11:59 Dextrose (Dextrose 50%) 50 ml Q30M PRN IV Hypoglycemia 01/21/20 12:00 04/20/20 11:59 02/03/20 06:59 Epoetin Andre (Epoetin Andre(ESRD on dialysis)) 10,000 unit THU-THU-THU SUBQ 01/23/20 21:00 04/22/20 20:59 02/03/20 20:44 Folic Acid (Folate) 5 mg DAILY ORAL 01/22/20 11:00 02/21/20 10:59 02/05/20 08:33 Lisinopril (ZestriL) 10 mg DAILY ORAL 01/22/20 09:00 02/21/20 08:59 02/05/20 08:33 Loperamide HCl (Imodium) 2 mg TIDPRN PRN ORAL Diarrhea 01/23/20 09:45 02/22/20 09:44 02/05/20 09:34 Ondansetron HCl (Zofran) 4 mg Q6H PRN IVP Nausea & Vomiting 01/21/20 12:00 02/20/20 11:59 Pantoprazole (Protonix) 40 mg DAILY ORAL 01/22/20 09:00 02/21/20 08:59 02/05/20 08:33 Tamsulosin HCl (Flomax) 0.4 mg BID ORAL 01/21/20 18:00 02/20/20 17:59 02/05/20 08:33 Assessment/Plan Assessment/Plan IMPRESSION: 1. Mild pulmonary edema. 2. Hyperkalemia. 3. ESRD, on dialysis. 4. Hypertension. 5. Toxic-metabolic encephalopathy. DISCUSSION: The patient is confused and is not able to care for himself. He likely will need to be placed in a facility and be cared for dialysis. Continue oxygen prn only; currently on RA I will follow. Noted VRE bacteremia; on linezolid Nataliya Mclaughlin Omar Syed MD Feb 05, 2020 10:04
--- NOTE | 2020-02-05 10:36 | General Progress Note ---
Subjective Allergies: Coded Allergies: No Known Allergies (Unverified , 04/21/18) Subjective doing ok weakness anemia unable to walk with pt Objective Last 24 Hour Vital Signs Date Time Temp Pulse Resp B/P (MAP) Pulse Ox O2 Delivery O2 Flow Rate FiO2 02/05/20 08:33 84 135/69 02/05/20 08:33 135/69 02/05/20 08:00 97.8 84 18 135/69 (91) 95 02/05/20 04:00 97.9 100 18 121/62 (81) 97 02/05/20 00:00 98.1 97 17 115/60 (78) 97 02/04/20 21:00 Room Air 02/04/20 20:00 97.9 104 18 150/83 (105) 97 02/04/20 16:00 98.8 95 18 143/76 (98) 96 02/04/20 12:00 97.7 87 16 154/82 (106) 96 Intake and Output 02/04/20 02/05/20 19:00 07:00 Intake Total 960 ml 300 ml Output Total 450 ml Balance 510 ml 300 ml Intake Oral 960 ml 300 ml Output Urine Total 450 ml # Voids 3 # Bowel Movements 2 4 Laboratory Tests 02/04/20 11:47: POC Whole Blood Glucose 86 02/04/20 16:00: POC Whole Blood Glucose 103 02/04/20 21:36: POC Whole Blood Glucose [Pending] 02/05/20 05:20: POC Whole Blood Glucose [Pending] 02/05/20 05:35: POC Whole Blood Glucose 74 02/05/20 07:25: White Blood Count 8.3, Red Blood Count 2.59L, Hemoglobin 8.1L, Hematocrit 25.1L, Mean Corpuscular Volume 97, Mean Corpuscular Hemoglobin 31.3H, Mean Corpuscular Hemoglobin Concent 32.4, Red Cell Distribution Width 14.8, Platelet Count 121L, Mean Platelet Volume 5.8L, Neutrophils (%) (Auto) 78.7H, Lymphocytes (%) (Auto) 12.4L, Monocytes (%) (Auto) 4.5, Eosinophils (%) (Auto) 2.2, Basophils (%) (Auto) 2.3H, Sodium Level 137, Potassium Level 4.0, Chloride Level 104, Carbon Dioxide Level 26, Anion Gap 7, Blood Urea Nitrogen 27H, Creatinine 2.8H, Estimat Glomerular Filtration Rate 22.9, Glucose Level 74, Calcium Level 6.4L, Phosphorus Level 3.0, Total Bilirubin 0.4, Aspartate Amino Transf (AST/SGOT) 16, Alanine Aminotransferase (ALT/SGPT) 12, Alkaline Phosphatase 173H, Total Protein 6.1L, Albumin 1.8L, Globulin 4.3, Albumin/Globulin Ratio 0.4L Height (Feet): 5 Height (Inches): 5.00 Weight (Pounds): 110 General Appearance: alert EENT: PERRL/EOMI Neck: supple Cardiovascular: normal rate Respiratory/Chest: lungs clear Abdomen: non tender, soft Assessment/Plan Assessment/Plan: 1 sepsis resolved 2 diarrea 3 dm 2 4 esrdon hd 5 htn 6 weakness 7 bactremia 8 anemia transfuse 1 u prbc id consult dc macrobid dc plan to snf waiting for covid test Kamron Phelan cm, MD Feb 05, 2020 10:36
--- NOTE | 2020-02-05 10:41 | Hematology/Onc Progress Note ---
Assessment/Plan Assessment/Plan # Anemia of chronic disease - likely multifactorial, with sepsis, poorly controlled DM2, and esrd --> Anemia workup has been ordered, reviewed --> No evidence of hemolysis is noted, peripheral smear has been reviewed. --> Hgb goal >7. Transfuse prn. --> Epogen started sq --> hgb 5-->5.9-->9.4->9.7-->8.9-->8.7->8.1 ==> hold off on iron # Thrombocytopenia likely due to liver disease/cirrhosis-->resolved, also now with sepsis/pna, elev la --> Medications have been reviewed --> if the plt count less than 10k, transfuse immediately. If less than 20k and febrile, transfuse --> If less than 50k and bleeding, transfuse. If neurosurgical bleed, transfuse as well --> plt 168->128-->>>121 --> us abd with cholelithiasis # Sepsis - on fluids and abxinitially for vre seosus --> iamging as needed --> Off abx # Dehydration --> per renal # Choledocholithiasis with acute cholecystitis ==> per gi, surg # Dvt ppx scds The timing of this note does not necessarily reflect the time of the patient was seen. Greatly appreciate consultation! Subjective Constitutional: Denies: no symptoms, chills, fever, malaise, weakness, other HEENT: Denies: no symptoms, eye pain, blurred vision, tearing, double vision, ear pain, ear discharge, nose pain, nose congestion, throat pain, throat swelling, mouth pain, mouth swelling, other Cardiovascular: Denies: no symptoms, chest pain, edema, irregular heart rate, lightheadedness, palpitations, syncope, other Respiratory: Denies: no symptoms, cough, shortness of breath, SOB with excertion, SOB at rest, sputum, wheezing, other Gastrointestinal/Abdominal: Denies: no symptoms, abdomen distended, abdominal pain, black stools, tarry stools, blood in stool, constipated, diarrhea, difficulty swallowing, nausea, poor appetite, poor fluid intake, rectal bleeding, vomiting, other Neurologic/Psychiatric: Denies: no symptoms, anxiety, depressed, emotional problems, headache, numbness, paresthesia, pre-existing deficit, seizure, tingling, tremors, weakness, other Endocrine: Denies: no symptoms, excessive sweating, flushing, intolerance to cold, intolerance to heat, increased hunger, increased thirst, increased urine, unexplained weight gain, unexplained weight loss, other Hematologic/Lymphatic: Denies: no symptoms, anemia, easy bleeding, easy bruis ing, adenopathy, other Allergies: Coded Allergies: No Known Allergies (Unverified , 04/21/18) Subjective 02/04 meds reviewed, labs noted, no bleeding, plt 121 Objective Objective Current Medications Medications (Trade) Dose Ordered Sig/Jamal Route PRN Reason Start Time Stop Time Status Last Admin Dose Admin Acetaminophen (Tylenol) 650 mg Q6H PRN ORAL For Pain 3-6 / Fever >100.5 01/21/20 12:00 02/20/20 11:59 02/02/20 09:28 Amlodipine Besylate (Norvasc) 2.5 mg DAILY ORAL 01/22/20 09:00 02/21/20 08:59 02/05/20 08:33 Dextrose (Dextrose 50%) 25 ml Q30M PRN IV Hypoglycemia 01/21/20 12:00 04/20/20 11:59 Dextrose (Dextrose 50%) 50 ml Q30M PRN IV Hypoglycemia 01/21/20 12:00 04/20/20 11:59 02/03/20 06:59 Epoetin Andre (Epoetin Andre(ESRD on dialysis)) 10,000 unit THU-THU-THU SUBQ 01/23/20 21:00 04/22/20 20:59 02/03/20 20:44 Folic Acid (Folate) 5 mg DAILY ORAL 01/22/20 11:00 02/21/20 10:59 02/05/20 08:33 Lisinopril (ZestriL) 10 mg DAILY ORAL 01/22/20 09:00 02/21/20 08:59 02/05/20 08:33 Loperamide HCl (Imodium) 2 mg TIDPRN PRN ORAL Diarrhea 01/23/20 09:45 02/22/20 09:44 02/05/20 09:34 Ondansetron HCl (Zofran) 4 mg Q6H PRN IVP Nausea & Vomiting 11/7/20 12:00 02/20/20 11:59 Pantoprazole (Protonix) 40 mg DAILY ORAL 01/22/20 09:00 02/21/20 08:59 02/05/20 08:33 Tamsulosin HCl (Flomax) 0.4 mg BID ORAL 01/21/20 18:00 02/20/20 17:59 02/05/20 08:33 Last 24 Hour Vital Signs Date Time Temp Pulse Resp B/P (MAP) Pulse Ox O2 Delivery O2 Flow Rate FiO2 02/05/20 08:33 84 135/69 02/05/20 08:33 135/69 02/05/20 08:00 97.8 84 18 135/69 (91) 95 02/05/20 04:00 97.9 100 18 121/62 (81) 97 02/05/20 00:00 98.1 97 17 115/60 (78) 97 02/04/20 21:00 Room Air 02/04/20 20:00 97.9 104 18 150/83 (105) 97 02/04/20 16:00 98.8 95 18 143/76 (98) 96 02/04/20 12:00 97.7 87 16 154/82 (106) 96 02/04/20 08:20 130/66 02/04/20 08:19 86 130/66 02/04/20 08:00 98.2 86 16 130/66 (87) 96 02/04/20 04:00 98.2 93 18 117/77 (90) 96 02/04/20 00:00 98.2 99 18 134/82 (99) 95 02/03/20 21:00 Room Air 02/03/20 20:00 98.8 95 18 139/78 (98) 96 02/03/20 16:00 98.0 89 18 140/72 (94) 94 02/03/20 12:00 97.8 89 20 140/82 (101) 96 Intake and Output 02/04/20 02/05/20 19:00 07:00 Intake Total 960 ml 300 ml Output Total 450 ml Balance 510 ml 300 ml Intake Oral 960 ml 300 ml Output Urine Total 450 ml # Voids 3 # Bowel Movements 2 4 Labs Test 02/02/20 12:10 02/02/20 16:48 02/03/20 07:06 02/03/20 11:51 POC Whole Blood Glucose 139 MG/DL (74-106) 137 MG/DL (74-106) 240 MG/DL (74-106) 119 MG/DL (74-106) Test 02/03/20 16:46 02/04/20 06:34 02/04/20 09:45 02/04/20 11:47 POC Whole Blood Glucose 123 MG/DL (74-106) 83 MG/DL (74-106) 86 MG/DL (74-106) White Blood Count 10.2 K/UL (4.8-10.8) Red Blood Count 2.95 M/UL (4.70-6.10) Hemoglobin 9.2 G/DL (14.2-18.0) Hematocrit 28.8 % (42.0-52.0) Mean Corpuscular Volume 98 FL (80-99) Mean Corpuscular Hemoglobin 31.1 PG (27.0-31.0) Mean Corpuscular Hemoglobin Concent 31.8 G/DL (32.0-36.0) Red Cell Distribution Width 15.4 % (11.6-14.8) Platelet Count 151 K/UL (150-450) Mean Platelet Volume 5.3 FL (6.5-10.1) Neutrophils (%) (Auto) 79.2 % (45.0-75.0) Lymphocytes (%) (Auto) 14.2 % (20.0-45.0) Monocytes (%) (Auto) 2.5 % (1.0-10.0) Eosinophils (%) (Auto) 2.6 % (0.0-3.0) Basophils (%) (Auto) 1.6 % (0.0-2.0) Sodium Level 136 MMOL/L (136-145) Potassium Level 5.5 MMOL/L (3.5-5.1) Chloride Level 105 MMOL/L (98-107) Carbon Dioxide Level 24 MMOL/L (21-32) Anion Gap 7 mmol/L (5-15) Blood Urea Nitrogen 48 mg/dL (7-18) Creatinine 4.2 MG/DL (0.55-1.30) Estimat Glomerular Filtration Rate 14.4 mL/min (>60) Glucose Level 90 MG/DL (74-106) Calcium Level 7.6 MG/DL (8.5-10.1) Test 02/04/20 16:00 02/04/20 21:36 02/05/20 05:20 02/05/20 05:35 POC Whole Blood Glucose 103 MG/DL (74-106) 74 MG/DL (74-106) Test 02/05/20 07:25 White Blood Count 8.3 K/UL (4.8-10.8) Red Blood Count 2.59 M/UL (4.70-6.10) Hemoglobin 8.1 G/DL (14.2-18.0) Hematocrit 25.1 % (42.0-52.0) Mean Corpuscular Volume 97 FL (80-99) Mean Corpuscular Hemoglobin 31.3 PG (27.0-31.0) Mean Corpuscular Hemoglobin Concent 32.4 G/DL (32.0-36.0) Red Cell Distribution Width 14.8 % (11.6-14.8) Platelet Count 121 K/UL (150-450) Mean Platelet Volume 5.8 FL (6.5-10.1) Neutrophils (%) (Auto) 78.7 % (45.0-75.0) Lymphocytes (%) (Auto) 12.4 % (20.0-45.0) Monocytes (%) (Auto) 4.5 % (1.0-10.0) Eosinophils (%) (Auto) 2.2 % (0.0-3.0) Basophils (%) (Auto) 2.3 % (0.0-2.0) Sodium Level 137 MMOL/L (136-145) Potassium Level 4.0 MMOL/L (3.5-5.1) Chloride Level 104 MMOL/L (98-107) Carbon Dioxide Level 26 MMOL/L (21-32) Anion Gap 7 mmol/L (5-15) Blood Urea Nitrogen 27 mg/dL (7-18) Creatinine 2.8 MG/DL (0.55-1.30) Estimat Glomerular Filtration Rate 22.9 mL/min (>60) Glucose Level 74 MG/DL (74-106) Calcium Level 6.4 MG/DL (8.5-10.1) Phosphorus Level 3.0 MG/DL (2.5-4.9) Total Bilirubin 0.4 MG/DL (0.2-1.0) Aspartate Amino Transf (AST/SGOT) 16 U/L (15-37) Alanine Aminotransferase (ALT/SGPT) 12 U/L (12-78) Alkaline Phosphatase 173 U/L (46-116) Total Protein 6.1 G/DL (6.4-8.2) Albumin 1.8 G/DL (3.4-5.0) Globulin 4.3 g/dL Albumin/Globulin Ratio 0.4 (1.0-2.7) Height (Feet): 5 Height (Inches): 5.00 Weight (Pounds): 110 Objective Physical Exam: Vitals: reviewed General: NAD HEENT: nc, at Neck: supple Chest: clear breath sounds bilaterally Cardiovascular: RRR, no s3, s4 Abdomen: soft, nontender, nd Extremities: no cce, normal range of motion Neuro: alert and oriented Guero Hernandez MD Feb 05, 2020 10:41
--- NOTE | 2020-02-05 11:40 | Infectious Diseases Prog Note ---
Assessment/Plan Assessment/Plan antibiotics : none A 1. VRE sepsis s/p rx 2. pneumonia 2. diabetes mellitus 4. hypertension 5. renal failure on HD 6. VRE UTI s/p rx P 1. continue off antibiotics 2. will follow up cultures Subjective Constitutional: Denies: fever, chills Respiratory: Denies: shortness of breath, dry cough Gastrointestinal/Abdominal: Reports: diarrhea - mild; Denies: nausea, vomiting Musculoskeletal: Denies: pain Allergies: Coded Allergies: No Known Allergies (Unverified , 04/21/18) Objective Last 24 Hour Vital Signs Date Time Temp Pulse Resp B/P (MAP) Pulse Ox O2 Delivery O2 Flow Rate FiO2 02/05/20 08:33 84 135/69 02/05/20 08:33 135/69 02/05/20 08:00 97.8 84 18 135/69 (91) 95 02/05/20 04:00 97.9 100 18 121/62 (81) 97 02/05/20 00:00 98.1 97 17 115/60 (78) 97 02/04/20 21:00 Room Air 02/04/20 20:00 97.9 104 18 150/83 (105) 97 02/04/20 16:00 98.8 95 18 143/76 (98) 96 02/04/20 12:00 97.7 87 16 154/82 (106) 96 Height (Feet): 5 Height (Inches): 5.00 Weight (Pounds): 110 Respiratory/Chest: lungs clear Cardiovascular: normal rate, regular rhythm, no gallop/murmur Abdomen: soft, non tender Extremities: no edema, other - right subclavian catheter Laboratory Tests Test 02/04/20 11:47 02/04/20 16:00 02/04/20 21:36 02/05/20 05:20 POC Whole Blood Glucose 86 MG/DL (74-106) 103 MG/DL (74-106) Pending Pending Test 02/05/20 05:35 02/05/20 07:25 POC Whole Blood Glucose 74 MG/DL (74-106) White Blood Count 8.3 K/UL (4.8-10.8) Red Blood Count 2.59 M/UL (4.70-6.10) L Hemoglobin 8.1 G/DL (14.2-18.0) L Hematocrit 25.1 % (42.0-52.0) L Mean Corpuscular Volume 97 FL (80-99) Mean Corpuscular Hemoglobin 31.3 PG (27.0-31.0) H Mean Corpuscular Hemoglobin Concent 32.4 G/DL (32.0-36.0) Red Cell Distribution Width 14.8 % (11.6-14.8) Platelet Count 121 K/UL (150-450) L Mean Platelet Volume 5.8 FL (6.5-10.1) L Neutrophils (%) (Auto) 78.7 % (45.0-75.0) H Lymphocytes (%) (Auto) 12.4 % (20.0-45.0) L Monocytes (%) (Auto) 4.5 % (1.0-10.0) Eosinophils (%) (Auto) 2.2 % (0.0-3.0) Basophils (%) (Auto) 2.3 % (0.0-2.0) H Sodium Level 137 MMOL/L (136-145) Potassium Level 4.0 MMOL/L (3.5-5.1) Chloride Level 104 MMOL/L (98-107) Carbon Dioxide Level 26 MMOL/L (21-32) Anion Gap 7 mmol/L (5-15) Blood Urea Nitrogen 27 mg/dL (7-18) H Creatinine 2.8 MG/DL (0.55-1.30) H Estimat Glomerular Filtration Rate 22.9 mL/min (>60) Glucose Level 74 MG/DL (74-106) Calcium Level 6.4 MG/DL (8.5-10.1) L Phosphorus Level 3.0 MG/DL (2.5-4.9) Total Bilirubin 0.4 MG/DL (0.2-1.0) Aspartate Amino Transf (AST/SGOT) 16 U/L (15-37) Alanine Aminotransferase (ALT/SGPT) 12 U/L (12-78) Alkaline Phosphatase 173 U/L (46-116) H Total Protein 6.1 G/DL (6.4-8.2) L Albumin 1.8 G/DL (3.4-5.0) L Globulin 4.3 g/dL Albumin/Globulin Ratio 0.4 (1.0-2.7) L Current Medications Medications (Trade) Dose Ordered Sig/Jamal Route PRN Reason Start Time Stop Time Status Last Admin Dose Admin Acetaminophen (Tylenol) 650 mg Q6H PRN ORAL For Pain 3-6 / Fever >100.5 01/21/20 12:00 02/20/20 11:59 02/02/20 09:28 Amlodipine Besylate (Norvasc) 2.5 mg DAILY ORAL 01/22/20 09:00 02/21/20 08:59 02/05/20 08:33 Dextrose (Dextrose 50%) 25 ml Q30M PRN IV Hypoglycemia 01/21/20 12:00 04/20/20 11:59 Dextrose (Dextrose 50%) 50 ml Q30M PRN IV Hypoglycemia 01/21/20 12:00 04/20/20 11:59 02/03/20 06:59 Epoetin Andre (Epoetin Andre(ESRD on dialysis)) 10,000 unit THU-THU-THU SUBQ 01/23/20 21:00 04/22/20 20:59 02/03/20 20:44 Folic Acid (Folate) 5 mg DAILY ORAL 01/22/20 11:00 02/21/20 10:59 02/05/20 08:33 Lisinopril (ZestriL) 10 mg DAILY ORAL 01/22/20 09:00 02/21/20 08:59 02/05/20 08:33 Loperamide HCl (Imodium) 2 mg TIDPRN PRN ORAL Diarrhea 01/23/20 09:45 02/22/20 09:44 02/05/20 09:34 Ondansetron HCl (Zofran) 4 mg Q6H PRN IVP Nausea & Vomiting 01/21/20 12:00 02/20/20 11:59 Pantoprazole (Protonix) 40 mg DAILY ORAL 01/22/20 09:00 02/21/20 08:59 02/05/20 08:33 Tamsulosin HCl (Flomax) 0.4 mg BID ORAL 01/21/20 18:00 02/20/20 17:59 02/05/20 08:33 Paolo Napier MD Feb 05, 2020 11:40
[2020-02-05 12:04] VITALS: BP 135/70
--- NOTE | 2020-02-05 12:29 | Nephrology Progress Note ---
Assessment/Plan Problem List: (1) Hyperkalemia (2) JONA (acute kidney injury) (3) Failure to thrive in adult (4) Anemia (5) Malnutrition Assessment: BMI 18.3 Assessment 1) JONA (acute kidney injury) (2) Hyperkalemia (3) Anemia (4) Metabolic acidosis (5) Ureter obstruction (6) Failure to thrive, BMI 18 Plan February 04: Dialyzed yesterday. Status quo. Labs reviewed. Continue per consultants. February 03: Due for dialysis today. Labs reviewed. Continue per current management. February 02: Last dialyzed January 31. Next dialysis for February 03. Continue per consultants. February 01: Dialyzed yesterday. Due for dialysis next 1 to 2 days. Blood cultures negative. Per consultants. Discharge planning. January 31: Due for dialysis today. No labs drawn today. Blood cultures for the past 4 days has been negative. Discharge planning in process. January 30: Dialyzed yesterday. Labs are reviewed. Due for dialysis tomorrow. Blood culture from January 26 - after 72 hours. Continue discharge planning. January 29: Due for dialysis today. Today's lab pending. Medication list reviewed. Surveillance blood culture ordered during hemodialysis today January 28: Status quo. Was dialyzed yesterday. Due for dialysis tomorrow. We will continue to monitor chemistries. Medication list reviewed. January 27: Status quo. Due for dialysis today. Medication list reviewed. Outpatient dialysis upon discharge. January 26: Status quo. Was dialyzed yesterday, dialysis again tomorrow. Continue current management. Outpatient dialysis upon discharge. January 25: Status quo. Due for dialysis today. Continue current management. January 24: Status quo. Dialysis tomorrow. Waiting for outpatient dialysis unit placement. January 23: Patient doing well. Labs reviewed. No blood work is available for today. Medication list reviewed. Will continue to dialysis as needed. Process of discharge and outpatient dialysis unit placement. January 22: Dialyzed yesterday. Today's labs reviewed. Medications reviewed. Outpatient dialysis unit placement to be processed. January 21: More Kayexalate for hyperkalemia. Due for dialysis today. Renal diet. Keep the blood pressure in check. Patient advised to be compliant through a pool manager. Folic acid p.o. initiated Subjective ROS Limited/Unobtainable: No Constitutional: Reports: malaise Objective Objective Last 24 Hour Vital Signs Date Time Temp Pulse Resp B/P (MAP) Pulse Ox O2 Delivery O2 Flow Rate FiO2 02/05/20 12:04 98.6 89 17 135/70 (91) 98 02/05/20 08:33 84 135/69 02/05/20 08:33 135/69 02/05/20 08:00 97.8 84 18 135/69 (91) 95 02/05/20 04:00 97.9 100 18 121/62 (81) 97 02/05/20 00:00 98.1 97 17 115/60 (78) 97 02/04/20 21:00 Room Air 02/04/20 20:00 97.9 104 18 150/83 (105) 97 02/04/20 16:00 98.8 95 18 143/76 (98) 96 Intake and Output 02/04/20 02/05/20 19:00 07:00 Intake Total 960 ml 300 ml Output Total 450 ml 1000 ml Balance 510 ml -700 ml Intake Oral 960 ml 300 ml Output Urine Total 450 ml Hemodialysis UF 1000 ml # Voids 3 # Bowel Movements 2 4 Current Medications Medications (Trade) Dose Ordered Sig/Jamal Route PRN Reason Start Time Stop Time Status Last Admin Dose Admin Acetaminophen (Tylenol) 650 mg Q6H PRN ORAL For Pain 3-6 / Fever >100.5 01/21/20 12:00 02/20/20 11:59 02/02/20 09:28 Amlodipine Besylate (Norvasc) 2.5 mg DAILY ORAL 01/22/20 09:00 02/21/20 08:59 02/05/20 08:33 Dextrose (Dextrose 50%) 25 ml Q30M PRN IV Hypoglycemia 01/21/20 12:00 04/20/20 11:59 Dextrose (Dextrose 50%) 50 ml Q30M PRN IV Hypoglycemia 01/21/20 12:00 04/20/20 11:59 02/03/20 06:59 Epoetin Andre (Epoetin Andre(ESRD on dialysis)) 10,000 unit THU-THU-THU SUBQ 01/23/20 21:00 04/22/20 20:59 02/03/20 20:44 Folic Acid (Folate) 5 mg DAILY ORAL 01/22/20 11:00 02/21/20 10:59 02/05/20 08:33 Lisinopril (ZestriL) 10 mg DAILY ORAL 01/22/20 09:00 02/21/20 08:59 02/05/20 08:33 Loperamide HCl (Imodium) 2 mg TIDPRN PRN ORAL Diarrhea 01/23/20 09:45 02/22/20 09:44 02/05/20 09:34 Ondansetron HCl (Zofran) 4 mg Q6H PRN IVP Nausea & Vomiting 01/21/20 12:00 02/20/20 11:59 Pantoprazole (Protonix) 40 mg DAILY ORAL 01/22/20 09:00 02/21/20 08:59 02/05/20 08:33 Tamsulosin HCl (Flomax) 0.4 mg BID ORAL 01/21/20 18:00 02/20/20 17:59 02/05/20 08:33 Laboratory Tests 02/04/20 16:00: POC Whole Blood Glucose 103 02/04/20 21:36: POC Whole Blood Glucose [Pending] 02/05/20 05:20: POC Whole Blood Glucose [Pending] 02/05/20 05:35: POC Whole Blood Glucose 74 02/05/20 07:25: White Blood Count 8.3, Red Blood Count 2.59L, Hemoglobin 8.1L, Hematocrit 25.1L, Mean Corpuscular Volume 97, Mean Corpuscular Hemoglobin 31.3H, Mean Corpuscular Hemoglobin Concent 32.4, Red Cell Distribution Width 14.8, Platelet Count 121L, Mean Platelet Volume 5.8L, Neutrophils (%) (Auto) 78.7H, Lymphocytes (%) (Auto) 12.4L, Monocytes (%) (Auto) 4.5, Eosinophils (%) (Auto) 2.2, Basophils (%) (Auto) 2.3H, Sodium Level 137, Potassium Level 4.0, Chloride Level 104, Carbon Dioxide Level 26, Anion Gap 7, Blood Urea Nitrogen 27H, Creatinine 2.8H, Estimat Glomerular Filtration Rate 22.9, Glucose Level 74, Calcium Level 6.4L, Phosphorus Level 3.0, Total Bilirubin 0.4, Aspartate Amino Transf (AST/SGOT) 16, Alanine Aminotransferase (ALT/SGPT) 12, Alkaline Phosphatase 173H, Total Protein 6.1L, Albumin 1.8L, Globulin 4.3, Albumin/Globulin Ratio 0.4L 02/05/20 12:09: POC Whole Blood Glucose 67L Height (Feet): 5 Height (Inches): 5.00 Weight (Pounds): 110 General Appearance: no apparent distress Cardiovascular: normal rate Respiratory/Chest: decreased breath sounds Abdomen: soft Objective No change Orlin Berrios MD Feb 05, 2020 12:29
[2020-02-05] MEDS ORDERED: Levemir Flexpen SUBQ SCH (14:00)
[2020-02-05 16:00] VITALS: BP 129/74
[2020-02-05 20:00] VITALS: BP 125/71
[2020-02-06] VITALS: BP 122/64
[2020-02-06 04:00] VITALS: BP 137/74
--- NOTE | 2020-02-06 06:52 | Hematology/Onc Progress Note ---
Assessment/Plan Assessment/Plan # Anemia of chronic disease - likely multifactorial, with sepsis, poorly controlled DM2, and esrd --> Anemia workup has been ordered, reviewed --> No evidence of hemolysis is noted, peripheral smear has been reviewed. --> Hgb goal >7. Transfuse prn. --> Epogen started sq --> hgb 5-->5.9-->9.4->9.7-->8.9-->8.7->8.1 ==> hold off on iron # Thrombocytopenia likely due to liver disease/cirrhosis-->resolved, also now with sepsis/pna, elev la --> Medications have been reviewed --> if the plt count less than 10k, transfuse immediately. If less than 20k and febrile, transfuse --> If less than 50k and bleeding, transfuse. If neurosurgical bleed, transfuse as well --> plt 168->128-->>>121 --> us abd with cholelithiasis # Sepsis - on fluids and abxinitially for vre seosus --> iamging as needed --> Off abx # Dehydration --> per renal # Choledocholithiasis with acute cholecystitis ==> per gi, surg # Dvt ppx scds The timing of this note does not necessarily reflect the time of the patient was seen. Greatly appreciate consultation! Subjective Constitutional: Denies: no symptoms, chills, fever, malaise, weakness, other HEENT: Denies: no symptoms, eye pain, blurred vision, tearing, double vision, ear pain, ear discharge, nose pain, nose congestion, throat pain, throat swelling, mouth pain, mouth swelling, other Cardiovascular: Denies: no symptoms, chest pain, edema, irregular heart rate, lightheadedness, palpitations, syncope, other Respiratory: Denies: no symptoms, cough, shortness of breath, SOB with excertion, SOB at rest, sputum, wheezing, other Gastrointestinal/Abdominal: Denies: no symptoms, abdomen distended, abdominal pain, black stools, tarry stools, blood in stool, constipated, diarrhea, difficulty swallowing, nausea, poor appetite, poor fluid intake, rectal bleeding, vomiting, other Genitourinary: Denies: no symptoms, burning, discharge, frequency, flank pain, hematuria, incontinence, pain, urgency, other Neurologic/Psychiatric: Denies: no symptoms, anxiety, depressed, emotional problems, headache, numbness, paresthesia, pre-existing deficit, seizure, tingling, tremors, weakness, other Endocrine: Denies: no symptoms, excessive sweating, flushing, intolerance to cold, intolerance to heat, increased hunger, increased thirst, increased urine, unexplained weight gain, unexplained weight loss, other Allergies: Coded Allergies: No Known Allergies (Unverified , 04/21/18) Subjective 02/04 meds reviewed, labs noted, no bleeding, plt 121 02/05 pending labs for this am, no bleeding Objective Objective Current Medications Medications (Trade) Dose Ordered Sig/Jamal Route PRN Reason Start Time Stop Time Status Last Admin Dose Admin Acetaminophen (Tylenol) 650 mg Q6H PRN ORAL For Pain 3-6 / Fever >100.5 01/21/20 12:00 02/20/20 11:59 02/02/20 09:28 Amlodipine Besylate (Norvasc) 2.5 mg DAILY ORAL 01/22/20 09:00 02/21/20 08:59 02/05/20 08:33 Dextrose (Dextrose 50%) 25 ml Q30M PRN IV Hypoglycemia 01/21/20 12:00 04/20/20 11:59 Dextrose (Dextrose 50%) 50 ml Q30M PRN IV Hypoglycemia 01/21/20 12:00 04/20/20 11:59 02/03/20 06:59 Epoetin Andre (Epoetin Andre(ESRD on dialysis)) 10,000 unit THU-THU-THU SUBQ 01/23/20 21:00 04/22/20 20:59 02/03/20 20:44 Folic Acid (Folate) 5 mg DAILY ORAL 01/22/20 11:00 02/21/20 10:59 02/05/20 08:33 Lisinopril (ZestriL) 10 mg DAILY ORAL 01/22/20 09:00 02/21/20 08:59 02/05/20 08:33 Loperamide HCl (Imodium) 2 mg TIDPRN PRN ORAL Diarrhea 01/23/20 09:45 02/22/20 09:44 02/06/20 00:53 Ondansetron HCl (Zofran) 4 mg Q6H PRN IVP Nausea & Vomiting 01/21/20 12:00 02/20/20 11:59 Pantoprazole (Protonix) 40 mg DAILY ORAL 01/22/20 09:00 02/21/20 08:59 02/05/20 08:33 Tamsulosin HCl (Flomax) 0.4 mg BID ORAL 01/21/20 18:00 02/20/20 17:59 02/05/20 17:02 Last 24 Hour Vital Signs Date Time Temp Pulse Resp B/P (MAP) Pulse Ox O2 Delivery O2 Flow Rate FiO2 02/06/20 04:00 98.1 87 20 137/74 (95) 96 02/06/20 00:00 98.0 16 122/64 (83) 99 02/05/20 22:06 Room Air 02/05/20 20:00 97.6 18 125/71 (89) 97 02/05/20 16:00 96.8 88 18 129/74 (92) 97 02/05/20 12:04 98.6 89 17 135/70 (91) 98 02/05/20 08:33 84 135/69 02/05/20 08:33 135/69 02/05/20 08:00 97.8 84 18 135/69 (91) 95 02/05/20 04:00 97.9 100 18 121/62 (81) 97 02/05/20 00:00 98.1 97 17 115/60 (78) 97 02/04/20 21:00 Room Air 02/04/20 20:00 97.9 104 18 150/83 (105) 97 02/04/20 16:00 98.8 95 18 143/76 (98) 96 02/04/20 12:00 97.7 87 16 154/82 (106) 96 02/04/20 08:20 130/66 02/04/20 08:19 86 130/66 02/04/20 08:00 98.2 86 16 130/66 (87) 96 Intake and Output 02/05/20 02/06/20 19:00 07:00 Intake Total 600 ml 300 ml Balance 600 ml 300 ml Intake Oral 600 ml 300 ml # Bowel Movements 2 4 Labs Test 02/03/20 07:06 02/03/20 11:51 02/03/20 16:46 02/04/20 06:34 POC Whole Blood Glucose 240 MG/DL (74-106) 119 MG/DL (74-106) 123 MG/DL (74-106) 83 MG/DL (74-106) Test 02/04/20 09:45 02/04/20 11:47 02/04/20 16:00 02/04/20 21:36 White Blood Count 10.2 K/UL (4.8-10.8) Red Blood Count 2.95 M/UL (4.70-6.10) Hemoglobin 9.2 G/DL (14.2-18.0) Hematocrit 28.8 % (42.0-52.0) Mean Corpuscular Volume 98 FL (80-99) Mean Corpuscular Hemoglobin 31.1 PG (27.0-31.0) Mean Corpuscular Hemoglobin Concent 31.8 G/DL (32.0-36.0) Red Cell Distribution Width 15.4 % (11.6-14.8) Platelet Count 151 K/UL (150-450) Mean Platelet Volume 5.3 FL (6.5-10.1) Neutrophils (%) (Auto) 79.2 % (45.0-75.0) Lymphocytes (%) (Auto) 14.2 % (20.0-45.0) Monocytes (%) (Auto) 2.5 % (1.0-10.0) Eosinophils (%) (Auto) 2.6 % (0.0-3.0) Basophils (%) (Auto) 1.6 % (0.0-2.0) Sodium Level 136 MMOL/L (136-145) Potassium Level 5.5 MMOL/L (3.5-5.1) Chloride Level 105 MMOL/L (98-107) Carbon Dioxide Level 24 MMOL/L (21-32) Anion Gap 7 mmol/L (5-15) Blood Urea Nitrogen 48 mg/dL (7-18) Creatinine 4.2 MG/DL (0.55-1.30) Estimat Glomerular Filtration Rate 14.4 mL/min (>60) Glucose Level 90 MG/DL (74-106) Calcium Level 7.6 MG/DL (8.5-10.1) POC Whole Blood Glucose 86 MG/DL (74-106) 103 MG/DL (74-106) Test 02/05/20 05:20 02/05/20 05:35 02/05/20 07:25 02/05/20 12:09 POC Whole Blood Glucose 74 MG/DL (74-106) 67 MG/DL (74-106) White Blood Count 8.3 K/UL (4.8-10.8) Red Blood Count 2.59 M/UL (4.70-6.10) Hemoglobin 8.1 G/DL (14.2-18.0) Hematocrit 25.1 % (42.0-52.0) Mean Corpuscular Volume 97 FL (80-99) Mean Corpuscular Hemoglobin 31.3 PG (27.0-31.0) Mean Corpuscular Hemoglobin Concent 32.4 G/DL (32.0-36.0) Red Cell Distribution Width 14.8 % (11.6-14.8) Platelet Count 121 K/UL (150-450) Mean Platelet Volume 5.8 FL (6.5-10.1) Neutrophils (%) (Auto) 78.7 % (45.0-75.0) Lymphocytes (%) (Auto) 12.4 % (20.0-45.0) Monocytes (%) (Auto) 4.5 % (1.0-10.0) Eosinophils (%) (Auto) 2.2 % (0.0-3.0) Basophils (%) (Auto) 2.3 % (0.0-2.0) Sodium Level 137 MMOL/L (136-145) Potassium Level 4.0 MMOL/L (3.5-5.1) Chloride Level 104 MMOL/L (98-107) Carbon Dioxide Level 26 MMOL/L (21-32) Anion Gap 7 mmol/L (5-15) Blood Urea Nitrogen 27 mg/dL (7-18) Creatinine 2.8 MG/DL (0.55-1.30) Estimat Glomerular Filtration Rate 22.9 mL/min (>60) Glucose Level 74 MG/DL (74-106) Calcium Level 6.4 MG/DL (8.5-10.1) Phosphorus Level 3.0 MG/DL (2.5-4.9) Total Bilirubin 0.4 MG/DL (0.2-1.0) Aspartate Amino Transf (AST/SGOT) 16 U/L (15-37) Alanine Aminotransferase (ALT/SGPT) 12 U/L (12-78) Alkaline Phosphatase 173 U/L (46-116) Total Protein 6.1 G/DL (6.4-8.2) Albumin 1.8 G/DL (3.4-5.0) Globulin 4.3 g/dL Albumin/Globulin Ratio 0.4 (1.0-2.7) Test 02/05/20 12:29 02/05/20 17:01 02/05/20 20:02 02/06/20 05:28 POC Whole Blood Glucose 62 MG/DL (74-106) 72 MG/DL (74-106) 110 MG/DL (74-106) 64 MG/DL (74-106) Test 02/06/20 05:54 POC Whole Blood Glucose 87 MG/DL (74-106) Height (Feet): 5 Height (Inches): 5.00 Weight (Pounds): 110 Objective Physical Exam: Vitals: reviewed General: NAD HEENT: nc, at Neck: supple Chest: clear breath sounds bilaterally Cardiovascular: RRR, no s3, s4 Abdomen: soft, nontender, nd Extremities: no cce, normal range of motion Neuro: alert and oriented Guero Hernandez MD Feb 06, 2020 06:52
[2020-02-06 08:00] VITALS: BP 115/61
[2020-02-06] MEDS: Tamsulosin 0.4mg cap ORAL SCH ×2 (08:48→17:24)
[2020-02-06] MEDS: Lisinopril 10mg tab ORAL SCH (08:48)
--- NOTE | 2020-02-06 10:14 | Pulmonology Progress Note ---
Subjective ROS Limited/Unobtainable: No Interval Events: None new Constitutional: Denies: fever, chills HEENT: Repors: no symptoms Respiratory: Reports: no symptoms Cardiovascular: Reports: no symptoms Gastrointestinal/Abdominal: Reports: diarrhea - mild; Denies: nausea, vomiting Musculoskeletal: Denies: pain Allergies: Coded Allergies: No Known Allergies (Unverified , 04/21/18) Objective Last 24 Hour Vital Signs Date Time Temp Pulse Resp B/P (MAP) Pulse Ox O2 Delivery O2 Flow Rate FiO2 02/06/20 08:48 89 115/61 02/06/20 08:48 115/61 02/06/20 08:00 97.5 89 18 115/61 (79) 97 02/06/20 04:00 98.1 87 20 137/74 (95) 96 02/06/20 00:00 98.0 16 122/64 (83) 99 02/05/20 22:06 Room Air 02/05/20 20:00 97.6 18 125/71 (89) 97 02/05/20 16:00 96.8 88 18 129/74 (92) 97 02/05/20 12:04 98.6 89 17 135/70 (91) 98 Intake and Output 02/05/20 02/06/20 19:00 07:00 Intake Total 600 ml 300 ml Balance 600 ml 300 ml Intake Oral 600 ml 300 ml # Bowel Movements 2 4 General Appearance: no acute distress HEENT: normocephalic Respiratory: chest wall non-tender, lungs clear Cardiovascular: normal peripheral pulses, normal rate Abdomen: normal bowel sounds, soft, non tender Extremities: no cyanosis Laboratory Tests 02/05/20 12:09: POC Whole Blood Glucose 67L 02/05/20 12:29: POC Whole Blood Glucose 62L 02/05/20 17:01: POC Whole Blood Glucose 72L 02/05/20 20:02: POC Whole Blood Glucose 110H 02/06/20 05:28: POC Whole Blood Glucose 64L 02/06/20 05:54: POC Whole Blood Glucose 87 Current Medications Medications (Trade) Dose Ordered Sig/Jamal Route PRN Reason Start Time Stop Time Status Last Admin Dose Admin Acetaminophen (Tylenol) 650 mg Q6H PRN ORAL For Pain 3-6 / Fever >100.5 01/21/20 12:00 02/20/20 11:59 02/02/20 09:28 Amlodipine Besylate (Norvasc) 2.5 mg DAILY ORAL 01/22/20 09:00 02/21/20 08:59 02/06/20 08:48 Dextrose (Dextrose 50%) 25 ml Q30M PRN IV Hypoglycemia 01/21/20 12:00 04/20/20 11:59 Dextrose (Dextrose 50%) 50 ml Q30M PRN IV Hypoglycemia 01/21/20 12:00 04/20/20 11:59 02/03/20 06:59 Epoetin Andre (Epoetin Andre(ESRD on dialysis)) 10,000 unit SUBQ 01/23/20 21:00 04/22/20 20:59 02/03/20 20:44 Folic Acid (Folate) 5 mg DAILY ORAL 01/22/20 11:00 02/21/20 10:59 02/06/20 08:48 Lisinopril (ZestriL) 10 mg DAILY ORAL 01/22/20 09:00 02/21/20 08:59 02/06/20 08:48 Loperamide HCl (Imodium) 2 mg TIDPRN PRN ORAL Diarrhea 01/23/20 09:45 02/22/20 09:44 02/06/20 00:53 Ondansetron HCl (Zofran) 4 mg Q6H PRN IVP Nausea & Vomiting 01/21/20 12:00 02/20/20 11:59 Pantoprazole (Protonix) 40 mg DAILY ORAL 01/22/20 09:00 02/21/20 08:59 02/06/20 08:48 Tamsulosin HCl (Flomax) 0.4 mg BID ORAL 01/21/20 18:00 02/20/20 17:59 02/06/20 08:48 Assessment/Plan Assessment/Plan IMPRESSION: 1. Mild pulmonary edema. 2. Hyperkalemia. 3. ESRD, on dialysis. 4. Hypertension. 5. Toxic-metabolic encephalopathy. DISCUSSION: wait completion of dc arrangements Continue oxygen prn only; currently on RA I will follow. Nataliya Mclaughlin Omar Syed MD Feb 06, 2020 10:14
[2020-02-06 12:00] VITALS: BP 140/76
--- NOTE | 2020-02-06 12:12 | Nephrology Progress Note ---
Assessment/Plan Problem List: (1) Hyperkalemia (2) JONA (acute kidney injury) (3) Failure to thrive in adult (4) Anemia (5) Malnutrition Assessment: BMI 18.3 Assessment 1) JONA (acute kidney injury) (2) Hyperkalemia (3) Anemia (4) Metabolic acidosis (5) Ureter obstruction (6) Failure to thrive, BMI 18 Plan February 05: Dialyzed February 03. Status quo. Continue current management. Dialysis for tomorrow February 06. February 04: Dialyzed yesterday. Status quo. Labs reviewed. Continue per consultants. February 03: Due for dialysis today. Labs reviewed. Continue per current management. February 02: Last dialyzed January 31. Next dialysis for February 03. Continue per consultants. February 01: Dialyzed yesterday. Due for dialysis next 1 to 2 days. Blood cultures negative. Per consultants. Discharge planning. January 31: Due for dialysis today. No labs drawn today. Blood cultures for the past 4 days has been negative. Discharge planning in process. January 30: Dialyzed yesterday. Labs are reviewed. Due for dialysis tomorrow. Blood culture from January 26 - after 72 hours. Continue discharge planning. January 29: Due for dialysis today. Today's lab pending. Medication list reviewed. Surveillance blood culture ordered during hemodialysis today January 28: Status quo. Was dialyzed yesterday. Due for dialysis tomorrow. We will continue to monitor chemistries. Medication list reviewed. January 27: Status quo. Due for dialysis today. Medication list reviewed. Outpatient dialysis upon discharge. January 26: Status quo. Was dialyzed yesterday, dialysis again tomorrow. Continue current management. Outpatient dialysis upon discharge. January 25: Status quo. Due for dialysis today. Continue current management. January 24: Status quo. Dialysis tomorrow. Waiting for outpatient dialysis unit placement. January 23: Patient doing well. Labs reviewed. No blood work is available for today. Medication list reviewed. Will continue to dialysis as needed. Process of discharge and outpatient dialysis unit placement. January 22: Dialyzed yesterday. Today's labs reviewed. Medications reviewed. Outpatient dialysis unit placement to be processed. January 21: More Kayexalate for hyperkalemia. Due for dialysis today. Renal diet. Keep the blood pressure in check. Patient advised to be compliant through a supervisor framing mill. Folic acid p.o. initiated Subjective ROS Limited/Unobtainable: No Constitutional: Reports: malaise Objective Objective Last 24 Hour Vital Signs Date Time Temp Pulse Resp B/P (MAP) Pulse Ox O2 Delivery O2 Flow Rate FiO2 02/06/20 08:48 89 115/61 02/06/20 08:48 115/61 02/06/20 08:00 97.5 89 18 115/61 (79) 97 02/06/20 04:00 98.1 87 20 137/74 (95) 96 02/06/20 00:00 98.0 16 122/64 (83) 99 02/05/20 22:06 Room Air 02/05/20 20:00 97.6 18 125/71 (89) 97 02/05/20 16:00 96.8 88 18 129/74 (92) 97 Intake and Output 02/05/20 02/06/20 19:00 07:00 Intake Total 600 ml 300 ml Balance 600 ml 300 ml Intake Oral 600 ml 300 ml # Bowel Movements 2 4 Current Medications Medications (Trade) Dose Ordered Sig/Jamal Route PRN Reason Start Time Stop Time Status Last Admin Dose Admin Acetaminophen (Tylenol) 650 mg Q6H PRN ORAL For Pain 3-6 / Fever >100.5 01/21/20 12:00 02/20/20 11:59 02/02/20 09:28 Amlodipine Besylate (Norvasc) 2.5 mg DAILY ORAL 01/22/20 09:00 02/21/20 08:59 02/06/20 08:48 Dextrose (Dextrose 50%) 25 ml Q30M PRN IV Hypoglycemia 01/21/20 12:00 04/20/20 11:59 Dextrose (Dextrose 50%) 50 ml Q30M PRN IV Hypoglycemia 01/21/20 12:00 04/20/20 11:59 02/03/20 06:59 Epoetin Andre (Epoetin Andre(ESRD on dialysis)) 10,000 unit THU-THU-THU SUBQ 01/23/20 21:00 04/22/20 20:59 02/03/20 20:44 Folic Acid (Folate) 5 mg DAILY ORAL 01/22/20 11:00 02/21/20 10:59 02/06/20 08:48 Lisinopril (ZestriL) 10 mg DAILY ORAL 01/22/20 09:00 02/21/20 08:59 02/06/20 08:48 Loperamide HCl (Imodium) 2 mg TIDPRN PRN ORAL Diarrhea 01/23/20 09:45 02/22/20 09:44 02/06/20 00:53 Ondansetron HCl (Zofran) 4 mg Q6H PRN IVP Nausea & Vomiting 01/21/20 12:00 02/20/20 11:59 Pantoprazole (Protonix) 40 mg DAILY ORAL 01/22/20 09:00 02/21/20 08:59 02/06/20 08:48 Tamsulosin HCl (Flomax) 0.4 mg BID ORAL 01/21/20 18:00 02/20/20 17:59 02/06/20 08:48 Laboratory Tests 02/05/20 12:29: POC Whole Blood Glucose 62L 02/05/20 17:01: POC Whole Blood Glucose 72L 02/05/20 20:02: POC Whole Blood Glucose 110H 02/06/20 05:28: POC Whole Blood Glucose 64L 02/06/20 05:54: POC Whole Blood Glucose 87 Height (Feet): 5 Height (Inches): 5.00 Weight (Pounds): 110 General Appearance: no apparent distress Objective No change Orlin Berrios MD Feb 06, 2020 12:12
--- NOTE | 2020-02-06 12:21 | Infectious Diseases Prog Note ---
Assessment/Plan Assessment/Plan antibiotics : none A 1. VRE sepsis s/p rx 2. pneumonia 2. diabetes mellitus 4. hypertension 5. renal failure on HD 6. VRE UTI s/p rx P 1. continue off antibiotics 2. will follow up cultures Subjective Constitutional: Denies: fever, chills Respiratory: Denies: shortness of breath, dry cough Gastrointestinal/Abdominal: Reports: diarrhea - decreased; Denies: nausea, vomiting Musculoskeletal: Reports: pain Allergies: Coded Allergies: No Known Allergies (Unverified , 04/21/18) Objective Last 24 Hour Vital Signs Date Time Temp Pulse Resp B/P (MAP) Pulse Ox O2 Delivery O2 Flow Rate FiO2 02/06/20 08:48 89 115/61 02/06/20 08:48 115/61 02/06/20 08:00 97.5 89 18 115/61 (79) 97 02/06/20 04:00 98.1 87 20 137/74 (95) 96 02/06/20 00:00 98.0 16 122/64 (83) 99 02/05/20 22:06 Room Air 02/05/20 20:00 97.6 18 125/71 (89) 97 02/05/20 16:00 96.8 88 18 129/74 (92) 97 Height (Feet): 5 Height (Inches): 5.00 Weight (Pounds): 110 Respiratory/Chest: lungs clear Cardiovascular: normal rate, regular rhythm, no gallop/murmur Abdomen: soft, non tender Extremities: no edema, other - right subclavian catheter Laboratory Tests Test 02/05/20 12:29 02/05/20 17:01 02/05/20 20:02 02/06/20 05:28 POC Whole Blood Glucose 62 MG/DL (74-106) L 72 MG/DL (74-106) L 110 MG/DL (74-106) H 64 MG/DL (74-106) L Test 02/06/20 05:54 POC Whole Blood Glucose 87 MG/DL (74-106) Current Medications Medications (Trade) Dose Ordered Sig/Jamal Route PRN Reason Start Time Stop Time Status Last Admin Dose Admin Acetaminophen (Tylenol) 650 mg Q6H PRN ORAL For Pain 3-6 / Fever >100.5 01/21/20 12:00 02/20/20 11:59 02/02/20 09:28 Amlodipine Besylate (Norvasc) 2.5 mg DAILY ORAL 01/22/20 09:00 02/21/20 08:59 02/06/20 08:48 Dextrose (Dextrose 50%) 25 ml Q30M PRN IV Hypoglycemia 01/21/20 12:00 04/20/20 11:59 Dextrose (Dextrose 50%) 50 ml Q30M PRN IV Hypoglycemia 01/21/20 12:00 04/20/20 11:59 02/03/20 06:59 Epoetin Andre (Epoetin Andre(ESRD on dialysis)) 10,000 unit THU- SUBQ 01/23/20 21:00 04/22/20 20:59 02/03/20 20:44 Folic Acid (Folate) 5 mg DAILY ORAL 01/22/20 11:00 02/21/20 10:59 02/06/20 08:48 Lisinopril (ZestriL) 10 mg DAILY ORAL 01/22/20 09:00 02/21/20 08:59 02/06/20 08:48 Loperamide HCl (Imodium) 2 mg TIDPRN PRN ORAL Diarrhea 01/23/20 09:45 02/22/20 09:44 02/06/20 00:53 Ondansetron HCl (Zofran) 4 mg Q6H PRN IVP Nausea & Vomiting 01/21/20 12:00 02/20/20 11:59 Pantoprazole (Protonix) 40 mg DAILY ORAL 01/22/20 09:00 02/21/20 08:59 02/06/20 08:48 Tamsulosin HCl (Flomax) 0.4 mg BID ORAL 01/21/20 18:00 02/20/20 17:59 02/06/20 08:48 Paolo Napier MD Feb 06, 2020 12:21
[2020-02-06 16:00] VITALS: BP 123/67
--- NOTE | 2020-02-06 17:18 | General Progress Note ---
Subjective Allergies: Coded Allergies: No Known Allergies (Unverified , 04/21/18) Subjective doing ok weakness anemia Objective Last 24 Hour Vital Signs Date Time Temp Pulse Resp B/P (MAP) Pulse Ox O2 Delivery O2 Flow Rate FiO2 02/06/20 16:00 98.0 87 18 123/67 (85) 97 02/06/20 12:00 97.3 81 18 140/76 (97) 96 02/06/20 08:48 89 115/61 02/06/20 08:48 115/61 02/06/20 08:00 97.5 89 18 115/61 (79) 97 02/06/20 04:00 98.1 87 20 137/74 (95) 96 02/06/20 00:00 98.0 16 122/64 (83) 99 02/05/20 22:06 Room Air 02/05/20 20:00 97.6 18 125/71 (89) 97 Intake and Output 02/05/20 02/06/20 19:00 07:00 Intake Total 600 ml 300 ml Balance 600 ml 300 ml Intake Oral 600 ml 300 ml # Bowel Movements 2 4 Laboratory Tests 02/05/20 20:02: POC Whole Blood Glucose 110H 02/06/20 05:28: POC Whole Blood Glucose 64L 02/06/20 05:54: POC Whole Blood Glucose 87 Height (Feet): 5 Height (Inches): 5.00 Weight (Pounds): 110 General Appearance: alert Neck: supple Cardiovascular: regular rhythm Respiratory/Chest: normal breath sounds Abdomen: non tender, soft Extremities: non-tender Assessment/Plan Assessment/Plan: 1 sepsis resolved 2 diarrea 3 dm 2 4 esrdon hd 5 htn 6 weakness 7 bactremia 8 anemia better after transfusion id consult dc macrobid dc plan to snf waiting for covid test Kamron Phelan cm, MD Feb 06, 2020 17:18
[2020-02-06 20:00] VITALS: BP 113/53
[2020-02-06] MEDS: Epoetin Alfa-EPBX(ESRD on dialysis)10,000 unit/ml vial SUBQ SCH (21:02)
[2020-02-07] VITALS (7 sets, daily range): BP systolic 114–126; BP diastolic 62–74
[2020-02-07 06:14] LABS: BASOPHILS % (AUTO) 1.6 % (0.0-2.0); EOSINOPHILS % (AUTO) 2.6 % (0.0-3.0); HEMATOCRIT 25.2 % (42.0-52.0); HEMOGLOBIN 8.1 G/DL (14.2-18.0); LYMPHOCYTES % (AUTO) 12.8 % (20.0-45.0); MEAN CORPUSCULAR VOLUME 98 FL (80-99); MONOCYTES % (AUTO) 9.4 % (1.0-10.0); NEUTROPHILS % (AUTO) 73.6 % (45.0-75.0); PLATELET COUNT 134 K/UL (150-450); RED BLOOD COUNT 2.57 M/UL (4.70-6.10); WHITE BLOOD COUNT 11.3 K/UL (4.8-10.8)
[2020-02-07 06:56] LABS: ALBUMIN 1.9 G/DL (3.4-5.0); ALBUMIN/GLOBULIN RATIO 0.4 (1.0-2.7); BILIRUBIN,TOTAL 0.4 MG/DL (0.2-1.0); CALCIUM 7.8 MG/DL (8.5-10.1); CREATININE 4.3 MG/DL (0.55-1.30); PHOSPHORUS 4.2 MG/DL (2.5-4.9); POTASSIUM 5.7 MMOL/L (3.5-5.1)
--- NOTE | 2020-02-07 06:57 | Hematology/Onc Progress Note ---
Assessment/Plan Assessment/Plan # Anemia of chronic disease - likely multifactorial, with sepsis, poorly controlled DM2, and esrd --> Anemia workup has been ordered, reviewed --> No evidence of hemolysis is noted, peripheral smear has been reviewed. --> Hgb goal >7. Transfuse prn. --> Epogen started sq --> hgb 5-->5.9-->9.4->9.7-->8.9-->8.7->8.1 ==> hold off on iron # Thrombocytopenia likely due to liver disease/cirrhosis-->resolved, also now with sepsis/pna, elev la --> Medications have been reviewed --> if the plt count less than 10k, transfuse immediately. If less than 20k and febrile, transfuse --> If less than 50k and bleeding, transfuse. If neurosurgical bleed, transfuse as well --> plt 168->128-->>>121-->134 --> us abd with cholelithiasis # Sepsis - on fluids and abxinitially for vre seosus --> iamging as needed --> Off abx # Dehydration --> per renal # Choledocholithiasis with acute cholecystitis ==> per gi, surg # Dvt ppx scds The timing of this note does not necessarily reflect the time of the patient was seen. Greatly appreciate consultation! Subjective HEENT: Denies: no symptoms, eye pain, blurred vision, tearing, double vision, ear pain, ear discharge, nose pain, nose congestion, throat pain, throat swelling, mouth pain, mouth swelling, other Cardiovascular: Denies: no symptoms, chest pain, edema, irregular heart rate, lightheadedness, palpitations, syncope, other Respiratory: Denies: no symptoms, cough, shortness of breath, SOB with excertion, SOB at rest, sputum, wheezing, other Gastrointestinal/Abdominal: Denies: no symptoms, abdomen distended, abdominal pain, black stools, tarry stools, blood in stool, constipated, diarrhea, difficulty swallowing, nausea, poor appetite, poor fluid intake, rectal bleeding, vomiting, other Genitourinary: Denies: no symptoms, burning, discharge, frequency, flank pain, hematuria, incontinence, pain, urgency, other Neurologic/Psychiatric: Denies: no symptoms, anxiety, depressed, emotional problems, headache, numbness, paresthesia, pre-existing deficit, seizure, tingling, tremors, weakness, other Endocrine: Denies: no symptoms, excessive sweating, flushing, intolerance to cold, intolerance to heat, increased hunger, increased thirst, increased urine, unexplained weight gain, unexplained weight loss, other Hematologic/Lymphatic: Denies: no symptoms, anemia, easy bleeding, easy bruising, adenopathy, other Allergies: Coded Allergies: No Known Allergies (Unverified , 04/21/18) Subjective 02/04 meds reviewed, labs noted, no bleeding, plt 121 02/05 pending labs for this am, no bleeding 02/06 labs are noted, no bleeding, hgb 8.1, hgb 11 Objective Objective Current Medications Medications (Trade) Dose Ordered Sig/Jamal Route PRN Reason Start Time Stop Time Status Last Admin Dose Admin Acetaminophen (Tylenol) 650 mg Q6H PRN ORAL For Pain 3-6 / Fever >100.5 01/21/20 12:00 02/20/20 11:59 02/02/20 09:28 Amlodipine Besylate (Norvasc) 2.5 mg DAILY ORAL 01/22/20 09:00 02/21/20 08:59 02/06/20 08:48 Dextrose (Dextrose 50%) 25 ml Q30M PRN IV Hypoglycemia 01/21/20 12:00 04/20/20 11:59 Dextrose (Dextrose 50%) 50 ml Q30M PRN IV Hypoglycemia 01/21/20 12:00 04/20/20 11:59 02/03/20 06:59 Epoetin Andre (Epoetin Andre(ESRD on dialysis)) 10,000 unit THU-THU-THU SUBQ 01/23/20 21:00 04/22/20 20:59 02/06/20 21:02 Folic Acid (Folate) 5 mg DAILY ORAL 01/22/20 11:00 02/21/20 10:59 02/06/20 08:48 Lisinopril (ZestriL) 10 mg DAILY ORAL 01/22/20 09:00 02/21/20 08:59 02/06/20 08:48 Loperamide HCl (Imodium) 2 mg TIDPRN PRN ORAL Diarrhea 01/23/20 09:45 02/22/20 09:44 02/06/20 14:43 Ondansetron HCl (Zofran) 4 mg Q6H PRN IVP Nausea & Vomiting 01/21/20 12:00 02/20/20 11:59 Pantoprazole (Protonix) 40 mg DAILY ORAL 01/22/20 09:00 02/21/20 08:59 02/06/20 08:48 Tamsulosin HCl (Flomax) 0.4 mg BID ORAL 01/21/20 18:00 02/20/20 17:59 02/06/20 17:24 Last 24 Hour Vital Signs Date Time Temp Pulse Resp B/P (MAP) Pulse Ox O2 Delivery O2 Flow Rate FiO2 02/07/20 04:00 98.1 90 18 118/65 (82) 97 02/07/20 00:00 97.9 94 18 114/62 (79) 92 02/06/20 20:42 Room Air 02/06/20 20:00 97.8 90 18 113/53 (73) 92 02/06/20 16:00 98.0 87 18 123/67 (85) 97 02/06/20 12:00 97.3 81 18 140/76 (97) 96 02/06/20 08:48 89 115/61 02/06/20 08:48 115/61 02/06/20 08:00 97.5 89 18 115/61 (79) 97 02/06/20 04:00 98.1 87 20 137/74 (95) 96 02/06/20 00:00 98.0 16 122/64 (83) 99 02/05/20 22:06 Room Air 02/05/20 20:00 97.6 18 125/71 (89) 97 02/05/20 16:00 96.8 88 18 129/74 (92) 97 02/05/20 12:04 98.6 89 17 135/70 (91) 98 02/05/20 08:33 84 135/69 02/05/20 08:33 135/69 02/05/20 08:00 97.8 84 18 135/69 (91) 95 Intake and Output 02/06/20 02/07/20 19:00 07:00 Intake Total 960 ml 240 ml Output Total 300 ml 900 ml Balance 660 ml -660 ml Intake Oral 960 ml 240 ml Output Urine Total 300 ml 900 ml # Bowel Movements 4 4 Labs Test 02/04/20 09:45 02/04/20 11:47 02/04/20 16:00 02/04/20 21:36 White Blood Count 10.2 K/UL (4.8-10.8) Red Blood Count 2.95 M/UL (4.70-6.10) Hemoglobin 9.2 G/DL (14.2-18.0) Hematocrit 28.8 % (42.0-52.0) Mean Corpuscular Volume 98 FL (80-99) Mean Corpuscular Hemoglobin 31.1 PG (27.0-31.0) Mean Corpuscular Hemoglobin Concent 31.8 G/DL (32.0-36.0) Red Cell Distribution Width 15.4 % (11.6-14.8) Platelet Count 151 K/UL (150-450) Mean Platelet Volume 5.3 FL (6.5-10.1) Neutrophils (%) (Auto) 79.2 % (45.0-75.0) Lymphocytes (%) (Auto) 14.2 % (20.0-45.0) Monocytes (%) (Auto) 2.5 % (1.0-10.0) Eosinophils (%) (Auto) 2.6 % (0.0-3.0) Basophils (%) (Auto) 1.6 % (0.0-2.0) Sodium Level 136 MMOL/L (136-145) Potassium Level 5.5 MMOL/L (3.5-5.1) Chloride Level 105 MMOL/L (98-107) Carbon Dioxide Level 24 MMOL/L (21-32) Anion Gap 7 mmol/L (5-15) Blood Urea Nitrogen 48 mg/dL (7-18) Creatinine 4.2 MG/DL (0.55-1.30) Estimat Glomerular Filtration Rate 14.4 mL/min (>60) Glucose Level 90 MG/DL (74-106) Calcium Level 7.6 MG/DL (8.5-10.1) POC Whole Blood Glucose 86 MG/DL (74-106) 103 MG/DL (74-106) Test 02/05/20 05:20 02/05/20 05:35 02/05/20 07:25 02/05/20 12:09 POC Whole Blood Glucose 74 MG/DL (74-106) 67 MG/DL (74-106) White Blood Count 8.3 K/UL (4.8-10.8) Red Blood Count 2.59 M/UL (4.70-6.10) Hemoglobin 8.1 G/DL (14.2-18.0) Hematocrit 25.1 % (42.0-52.0) Mean Corpuscular Volume 97 FL (80-99) Mean Corpuscular Hemoglobin 31.3 PG (27.0-31.0) Mean Corpuscular Hemoglobin Concent 32.4 G/DL (32.0-36.0) Red Cell Distribution Width 14.8 % (11.6-14.8) Platelet Count 121 K/UL (150-450) Mean Platelet Volume 5.8 FL (6.5-10.1) Neutrophils (%) (Auto) 78.7 % (45.0-75.0) Lymphocytes (%) (Auto) 12.4 % (20.0-45.0) Monocytes (%) (Auto) 4.5 % (1.0-10.0) Eosinophils (%) (Auto) 2.2 % (0.0-3.0) Basophils (%) (Auto) 2.3 % (0.0-2.0) Sodium Level 137 MMOL/L (136-145) Potassium Level 4.0 MMOL/L (3.5-5.1) Chloride Level 104 MMOL/L (98-107) Carbon Dioxide Level 26 MMOL/L (21-32) Anion Gap 7 mmol/L (5-15) Blood Urea Nitrogen 27 mg/dL (7-18) Creatinine 2.8 MG/DL (0.55-1.30) Estimat Glomerular Filtration Rate 22.9 mL/min (>60) Glucose Level 74 MG/DL (74-106) Calcium Level 6.4 MG/DL (8.5-10.1) Phosphorus Level 3.0 MG/DL (2.5-4.9) Total Bilirubin 0.4 MG/DL (0.2-1.0) Aspartate Amino Transf (AST/SGOT) 16 U/L (15-37) Alanine Aminotransferase (ALT/SGPT) 12 U/L (12-78) Alkaline Phosphatase 173 U/L (46-116) Total Protein 6.1 G/DL (6.4-8.2) Albumin 1.8 G/DL (3.4-5.0) Globulin 4.3 g/dL Albumin/Globulin Ratio 0.4 (1.0-2.7) Test 02/05/20 12:29 02/05/20 17:01 02/05/20 20:02 02/06/20 05:28 POC Whole Blood Glucose 62 MG/DL (74-106) 72 MG/DL (74-106) 110 MG/DL (74-106) 64 MG/DL (74-106) Test 02/06/20 05:54 02/07/20 05:19 02/07/20 05:25 POC Whole Blood Glucose 87 MG/DL (74-106) White Blood Count 11.3 K/UL (4.8-10.8) Red Blood Count 2.57 M/UL (4.70-6.10) Hemoglobin 8.1 G/DL (14.2-18.0) Hematocrit 25.2 % (42.0-52.0) Mean Corpuscular Volume 98 FL (80-99) Mean Corpuscular Hemoglobin 31.4 PG (27.0-31.0) Mean Corpuscular Hemoglobin Concent 32.0 G/DL (32.0-36.0) Red Cell Distribution Width 15.0 % (11.6-14.8) Platelet Count 134 K/UL (150-450) Mean Platelet Volume 6.8 FL (6.5-10.1) Neutrophils (%) (Auto) 73.6 % (45.0-75.0) Lymphocytes (%) (Auto) 12.8 % (20.0-45.0) Monocytes (%) (Auto) 9.4 % (1.0-10.0) Eosinophils (%) (Auto) 2.6 % (0.0-3.0) Basophils (%) (Auto) 1.6 % (0.0-2.0) Height (Feet): 5 Height (Inches): 5.00 Weight (Pounds): 110 Objective Physical Exam: Vitals: reviewed General: NAD HEENT: nc, at Neck: supple Chest: clear breath sounds bilaterally Cardiovascular: RRR, no s3, s4 Abdomen: soft, nontender, nd Extremities: no cce, normal range of motion Neuro: alert and oriented Guero Hernandez MD Feb 07, 2020 06:57
[2020-02-07] MEDS: Lisinopril 10mg tab ORAL SCH (08:07)
[2020-02-07] MEDS: Tamsulosin 0.4mg cap ORAL SCH ×2 (09:09→17:28)
--- NOTE | 2020-02-07 09:34 | Pulmonology Progress Note ---
Subjective ROS Limited/Unobtainable: No Interval Events: None new Constitutional: Denies: fever, chills HEENT: Repors: no symptoms Respiratory: Reports: no symptoms Cardiovascular: Reports: no symptoms Gastrointestinal/Abdominal: Reports: diarrhea - decreased; Denies: nausea, vomiting Musculoskeletal: Reports: pain Allergies: Coded Allergies: No Known Allergies (Unverified , 04/21/18) Objective Last 24 Hour Vital Signs Date Time Temp Pulse Resp B/P (MAP) Pulse Ox O2 Delivery O2 Flow Rate FiO2 02/07/20 08:00 98.1 82 18 115/65 (82) 93 02/07/20 04:00 98.1 90 18 118/65 (82) 97 02/07/20 00:00 97.9 94 18 114/62 (79) 92 02/06/20 20:42 Room Air 02/06/20 20:00 97.8 90 18 113/53 (73) 92 02/06/20 16:00 98.0 87 18 123/67 (85) 97 02/06/20 12:00 97.3 81 18 140/76 (97) 96 Intake and Output 02/06/20 02/07/20 19:00 07:00 Intake Total 960 ml 240 ml Output Total 300 ml 900 ml Balance 660 ml -660 ml Intake Oral 960 ml 240 ml Output Urine Total 300 ml 900 ml # Bowel Movements 4 4 General Appearance: no acute distress HEENT: normocephalic Respiratory: chest wall non-tender, lungs clear Cardiovascular: normal peripheral pulses, normal rate Abdomen: normal bowel sounds, soft, non tender Extremities: no cyanosis Laboratory Tests 02/07/20 05:19: POC Whole Blood Glucose [Pending] 02/07/20 05:25: White Blood Count 11.3H, Red Blood Count 2.57L, Hemoglobin 8.1L, Hematocrit 25.2L, Mean Corpuscular Volume 98, Mean Corpuscular Hemoglobin 31.4H, Mean Corpuscular Hemoglobin Concent 32.0, Red Cell Distribution Width 15.0H, Platelet Count 134L, Mean Platelet Volume 6.8, Neutrophils (%) (Auto) 73.6, Lymphocytes (%) (Auto) 12.8L, Monocytes (%) (Auto) 9.4, Eosinophils (%) (Auto) 2.6, Basophils (%) (Auto) 1.6, Sodium Level 133L, Potassium Level 5.7H, Chloride Level 105, Carbon Dioxide Level 24, Anion Gap 4L, Blood Urea Nitrogen 51H, Creatinine 4.3H, Estimat Glomerular Filtration Rate 14.0, Glucose Level 80, Uric Acid 5.8, Calcium Level 7.8L, Phosphorus Level 4.2, Magnesium Level 2.0, Total Bilirubin 0.4, Aspartate Amino Transf (AST/SGOT) 12L, Alanine Aminotransferase (ALT/SGPT) 14, Alkaline Phosphatase 237H, Total Protein 6.5, Albumin 1.9L, Globulin 4.6, Albumin/Globulin Ratio 0.4L Current Medications Medications (Trade) Dose Ordered Sig/Jamal Route PRN Reason Start Time Stop Time Status Last Admin Dose Admin Acetaminophen (Tylenol) 650 mg Q6H PRN ORAL For Pain 3-6 / Fever >100.5 01/21/20 12:00 02/20/20 11:59 02/02/20 09:28 Amlodipine Besylate (Norvasc) 2.5 mg DAILY ORAL 01/22/20 09:00 02/21/20 08:59 02/06/20 08:48 Dextrose (Dextrose 50%) 25 ml Q30M PRN IV Hypoglycemia 01/21/20 12:00 04/20/20 11:59 Dextrose (Dextrose 50%) 50 ml Q30M PRN IV Hypoglycemia 01/21/20 12:00 04/20/20 11:59 02/03/20 06:59 Epoetin Andre (Epoetin Andre(ESRD on dialysis)) 10,000 unit THU-THU-THU SUBQ 01/23/20 21:00 04/22/20 20:59 02/06/20 21:02 Folic Acid (Folate) 5 mg DAILY ORAL 01/22/20 11:00 02/21/20 10:59 02/07/20 09:09 Lisinopril (ZestriL) 10 mg DAILY ORAL 01/22/20 09:00 02/21/20 08:59 02/06/20 08:48 Loperamide HCl (Imodium) 2 mg TIDPRN PRN ORAL Diarrhea 01/23/20 09:45 02/22/20 09:44 02/06/20 14:43 Ondansetron HCl (Zofran) 4 mg Q6H PRN IVP Nausea & Vomiting 01/21/20 12:00 02/20/20 11:59 Pantoprazole (Protonix) 40 mg DAILY ORAL 01/22/20 09:00 02/21/20 08:59 02/07/20 09:09 Tamsulosin HCl (Flomax) 0.4 mg BID ORAL 01/21/20 18:00 02/20/20 17:59 02/07/20 09:09 Assessment/Plan Assessment/Plan IMPRESSION: 1. Mild pulmonary edema. 2. Hyperkalemia. 3. ESRD, on dialysis. 4. Hypertension. 5. Toxic-metabolic encephalopathy. DISCUSSION: Await completion of dc arrangements Continue oxygen prn only; currently on RA I will follow. Nataliya Mclaughlin Omar Syed MD Feb 07, 2020 09:34
--- NOTE | 2020-02-07 11:29 | Infectious Diseases Prog Note ---
Assessment/Plan Assessment/Plan antibiotics : none A 1. VRE sepsis s/p rx 2. pneumonia 2. diabetes mellitus 4. hypertension 5. renal failure on HD 6. VRE UTI s/p rx P 1. continue off antibiotics 2. will follow up cultures Subjective Constitutional: Denies: fever, chills Respiratory: Denies: shortness of breath, dry cough Gastrointestinal/Abdominal: Reports: diarrhea - decreased; Denies: nausea, vomiting Allergies: Coded Allergies: No Known Allergies (Unverified , 04/21/18) Objective Last 24 Hour Vital Signs Date Time Temp Pulse Resp B/P (MAP) Pulse Ox O2 Delivery O2 Flow Rate FiO2 02/07/20 08:00 98.1 82 18 115/65 (82) 93 02/07/20 04:00 98.1 90 18 118/65 (82) 97 02/07/20 00:00 97.9 94 18 114/62 (79) 92 02/06/20 20:42 Room Air 02/06/20 20:00 97.8 90 18 113/53 (73) 92 02/06/20 16:00 98.0 87 18 123/67 (85) 97 02/06/20 12:00 97.3 81 18 140/76 (97) 96 Height (Feet): 5 Height (Inches): 5.00 Weight (Pounds): 110 Respiratory/Chest: lungs clear Cardiovascular: normal rate, regular rhythm, no gallop/murmur Abdomen: soft, non tender Extremities: no edema, other - right subclavian catheter Laboratory Tests Test 02/07/20 05:19 02/07/20 05:25 POC Whole Blood Glucose Pending White Blood Count 11.3 K/UL (4.8-10.8) H Red Blood Count 2.57 M/UL (4.70-6.10) L Hemoglobin 8.1 G/DL (14.2-18.0) L Hematocrit 25.2 % (42.0-52.0) L Mean Corpuscular Volume 98 FL (80-99) Mean Corpuscular Hemoglobin 31.4 PG (27.0-31.0) H Mean Corpuscular Hemoglobin Concent 32.0 G/DL (32.0-36.0) Red Cell Distribution Width 15.0 % (11.6-14.8) H Platelet Count 134 K/UL (150-450) L Mean Platelet Volume 6.8 FL (6.5-10.1) Neutrophils (%) (Auto) 73.6 % (45.0-75.0) Lymphocytes (%) (Auto) 12.8 % (20.0-45.0) L Monocytes (%) (Auto) 9.4 % (1.0-10.0) Eosinophils (%) (Auto) 2.6 % (0.0-3.0) Basophils (%) (Auto) 1.6 % (0.0-2.0) Sodium Level 133 MMOL/L (136-145) L Potassium Level 5.7 MMOL/L (3.5-5.1) H Chloride Level 105 MMOL/L (98-107) Carbon Dioxide Level 24 MMOL/L (21-32) Anion Gap 4 mmol/L (5-15) L Blood Urea Nitrogen 51 mg/dL (7-18) H Creatinine 4.3 MG/DL (0.55-1.30) H Estimat Glomerular Filtration Rate 14.0 mL/min (>60) Glucose Level 80 MG/DL (74-106) Uric Acid 5.8 MG/DL (2.6-7.2) Calcium Level 7.8 MG/DL (8.5-10.1) L Phosphorus Level 4.2 MG/DL (2.5-4.9) Magnesium Level 2.0 MG/DL (1.8-2.4) Total Bilirubin 0.4 MG/DL (0.2-1.0) Aspartate Amino Transf (AST/SGOT) 12 U/L (15-37) L Alanine Aminotransferase (ALT/SGPT) 14 U/L (12-78) Alkaline Phosphatase 237 U/L (46-116) H Total Protein 6.5 G/DL (6.4-8.2) Albumin 1.9 G/DL (3.4-5.0) L Globulin 4.6 g/dL Albumin/Globulin Ratio 0.4 (1.0-2.7) L Current Medications Medications (Trade) Dose Ordered Sig/Jamal Route PRN Reason Start Time Stop Time Status Last Admin Dose Admin Acetaminophen (Tylenol) 650 mg Q6H PRN ORAL For Pain 3-6 / Fever >100.5 01/21/20 12:00 02/20/20 11:59 02/02/20 09:28 Amlodipine Besylate (Norvasc) 2.5 mg DAILY ORAL 01/22/20 09:00 02/21/20 08:59 02/06/20 08:48 Dextrose (Dextrose 50%) 25 ml Q30M PRN IV Hypoglycemia 01/21/20 12:00 04/20/20 11:59 Dextrose (Dextrose 50%) 50 ml Q30M PRN IV Hypoglycemia 01/21/20 12:00 04/20/20 11:59 02/03/20 06:59 Epoetin Andre (Epoetin Andre(ESRD on dialysis)) 10,000 unit THU- SUBQ 01/23/20 21:00 04/22/20 20:59 02/06/20 21:02 Folic Acid (Folate) 5 mg DAILY ORAL 01/22/20 11:00 02/21/20 10:59 02/07/20 09:09 Lisinopril (ZestriL) 10 mg DAILY ORAL 01/22/20 09:00 02/21/20 08:59 02/06/20 08:48 Loperamide HCl (Imodium) 2 mg TIDPRN PRN ORAL Diarrhea 01/23/20 09:45 02/22/20 09:44 02/06/20 14:43 Ondansetron HCl (Zofran) 4 mg Q6H PRN IVP Nausea & Vomiting 01/21/20 12:00 02/20/20 11:59 Pantoprazole (Protonix) 40 mg DAILY ORAL 01/22/20 09:00 02/21/20 08:59 02/07/20 09:09 Tamsulosin HCl (Flomax) 0.4 mg BID ORAL 01/21/20 18:00 02/20/20 17:59 02/07/20 09:09 Paolo Napier MD Feb 07, 2020 11:29
--- NOTE | 2020-02-07 11:34 | General Progress Note ---
Subjective Allergies: Coded Allergies: No Known Allergies (Unverified , 04/21/18) Subjective doing ok weakness anemia better Objective Last 24 Hour Vital Signs Date Time Temp Pulse Resp B/P (MAP) Pulse Ox O2 Delivery O2 Flow Rate FiO2 02/07/20 08:00 98.1 82 18 115/65 (82) 93 02/07/20 04:00 98.1 90 18 118/65 (82) 97 02/07/20 00:00 97.9 94 18 114/62 (79) 92 02/06/20 20:42 Room Air 02/06/20 20:00 97.8 90 18 113/53 (73) 92 02/06/20 16:00 98.0 87 18 123/67 (85) 97 02/06/20 12:00 97.3 81 18 140/76 (97) 96 Intake and Output 02/06/20 02/07/20 19:00 07:00 Intake Total 960 ml 240 ml Output Total 300 ml 900 ml Balance 660 ml -660 ml Intake Oral 960 ml 240 ml Output Urine Total 300 ml 900 ml # Bowel Movements 4 4 Laboratory Tests 02/07/20 05:19: POC Whole Blood Glucose [Pending] 02/07/20 05:25: White Blood Count 11.3H, Red Blood Count 2.57L, Hemoglobin 8.1L, Hematocrit 25.2L, Mean Corpuscular Volume 98, Mean Corpuscular Hemoglobin 31.4H, Mean Corpuscular Hemoglobin Concent 32.0, Red Cell Distribution Width 15.0H, Platelet Count 134L, Mean Platelet Volume 6.8, Neutrophils (%) (Auto) 73.6, Lymphocytes (%) (Auto) 12.8L, Monocytes (%) (Auto) 9.4, Eosinophils (%) (Auto) 2.6, Basophils (%) (Auto) 1.6, Sodium Level 133L, Potassium Level 5.7H, Chloride Level 105, Carbon Dioxide Level 24, Anion Gap 4L, Blood Urea Nitrogen 51H, Creatinine 4.3H, Estimat Glomerular Filtration Rate 14.0, Glucose Level 80, Uric Acid 5.8, Calcium Level 7.8L, Phosphorus Level 4.2, Magnesium Level 2.0, Total Bilirubin 0.4, Aspartate Amino Transf (AST/SGOT) 12L, Alanine Aminotransferase (ALT/SGPT) 14, Alkaline Phosphatase 237H, Total Protein 6.5, Albumin 1.9L, Globulin 4.6, Albumin/Globulin Ratio 0.4L Height (Feet): 5 Height (Inches): 5.00 Weight (Pounds): 110 General Appearance: alert EENT: PERRL/EOMI Neck: supple Cardiovascular: regular rhythm Respiratory/Chest: lungs clear Abdomen: non tender, soft Extremities: non-tender Assessment/Plan Assessment/Plan: 1 sepsis resolved 2 diarrea 3 dm 2 4 esrdon hd 5 htn 6 weakness 7 bactremia 8 anemia better after transfusion id consult dc macrobid dc plan to snf waiting for covid test Kamron Phelan cm, MD Feb 07, 2020 11:34
--- NOTE | 2020-02-07 13:23 | Nephrology Progress Note ---
Assessment/Plan Problem List: (1) Hyperkalemia (2) JONA (acute kidney injury) (3) Failure to thrive in adult (4) Anemia (5) Malnutrition Assessment: BMI 18.3 Assessment 1) JONA (acute kidney injury) (2) Hyperkalemia (3) Anemia (4) Metabolic acidosis (5) Ureter obstruction (6) Failure to thrive, BMI 18 Plan February 06: Due for dialysis today. Labs reviewed. Medication list reviewed. Continue per PMD and consultants. February 05: Dialyzed February 03. Status quo. Continue current management. Dialysis for tomorrow February 06. February 04: Dialyzed yesterday. Status quo. Labs reviewed. Continue per consultants. February 03: Due for dialysis today. Labs reviewed. Continue per current management. February 02: Last dialyzed January 31. Next dialysis for February 03. Continue per consultants. February 01: Dialyzed yesterday. Due for dialysis next 1 to 2 days. Blood cu ltures negative. Per consultants. Discharge planning. January 31: Due for dialysis today. No labs drawn today. Blood cultures for the past 4 days has been negative. Discharge planning in process. January 30: Dialyzed yesterday. Labs are reviewed. Due for dialysis tomorrow. Blood culture from January 26 - after 72 hours. Continue discharge planning. January 29: Due for dialysis today. Today's lab pending. Medication list reviewed. Surveillance blood culture ordered during hemodialysis today January 28: Status quo. Was dialyzed yesterday. Due for dialysis tomorrow. We will continue to monitor chemistries. Medication list reviewed. January 27: Status quo. Due for dialysis today. Medication list reviewed. Outpatient dialysis upon discharge. January 26: Status quo. Was dialyzed yesterday, dialysis again tomorrow. Continue current management. Outpatient dialysis upon discharge. January 25: Status quo. Due for dialysis today. Continue current management. January 24: Status quo. Dialysis tomorrow. Waiting for outpatient dialysis unit placement. January 23: Patient doing well. Labs reviewed. No blood work is available for today. Medication list reviewed. Will continue to dialysis as needed. Process of discharge and outpatient dialysis unit placement. January 22: Dialyzed yesterday. Today's labs reviewed. Medications reviewed. Outpatient dialysis unit placement to be processed. January 21: More Kayexalate for hyperkalemia. Due for dialysis today. Renal diet. Keep the blood pressure in check. Patient advised to be compliant through a crystal gazer. Folic acid p.o. initiated Subjective ROS Limited/Unobtainable: No Objective Objective Last 24 Hour Vital Signs Date Time Temp Pulse Resp B/P (MAP) Pulse Ox O2 Delivery O2 Flow Rate FiO2 02/07/20 12:01 97.5 88 18 126/70 (88) 95 02/07/20 12:00 96.4 70 17 118/74 (89) 100 02/07/20 08:00 98.1 82 18 115/65 (82) 93 02/07/20 04:00 98.1 90 18 118/65 (82) 97 02/07/20 00:00 97.9 94 18 114/62 (79) 92 02/06/20 20:42 Room Air 02/06/20 20:00 97.8 90 18 113/53 (73) 92 02/06/20 16:00 98.0 87 18 123/67 (85) 97 Intake and Output 02/06/20 02/07/20 19:00 07:00 Intake Total 960 ml 240 ml Output Total 300 ml 900 ml Balance 660 ml -660 ml Intake Oral 960 ml 240 ml Output Urine Total 300 ml 900 ml # Bowel Movements 4 4 Current Medications Medications (Trade) Dose Ordered Sig/Jamal Route PRN Reason Start Time Stop Time Status Last Admin Dose Admin Acetaminophen (Tylenol) 650 mg Q6H PRN ORAL For Pain 3-6 / Fever >100.5 01/21/20 12:00 02/20/20 11:59 02/02/20 09:28 Amlodipine Besylate (Norvasc) 2.5 mg DAILY ORAL 01/22/20 09:00 02/21/20 08:59 02/06/20 08:48 Dextrose (Dextrose 50%) 25 ml Q30M PRN IV Hypoglycemia 01/21/20 12:00 04/20/20 11:59 Dextrose (Dextrose 50%) 50 ml Q30M PRN IV Hypoglycemia 01/21/20 12:00 04/20/20 11:59 02/03/20 06:59 Epoetin Andre (Epoetin Andre(ESRD on dialysis)) 10,000 unit MON-WED-THU SUBQ 01/23/20 21:00 04/22/20 20:59 02/06/20 21:02 Folic Acid (Folate) 5 mg DAILY ORAL 01/22/20 11:00 02/21/20 10:59 02/07/20 09:09 Lisinopril (ZestriL) 10 mg DAILY ORAL 01/22/20 09:00 02/21/20 08:59 02/06/20 08:48 Loperamide HCl (Imodium) 2 mg TIDPRN PRN ORAL Diarrhea 01/23/20 09:45 02/22/20 09:44 02/06/20 14:43 Ondansetron HCl (Zofran) 4 mg Q6H PRN IVP Nausea & Vomiting 01/21/20 12:00 02/20/20 11:59 Pantoprazole (Protonix) 40 mg DAILY ORAL 01/22/20 09:00 02/21/20 08:59 02/07/20 09:09 Tamsulosin HCl (Flomax) 0.4 mg BID ORAL 01/21/20 18:00 02/20/20 17:59 02/07/20 09:09 Laboratory Tests 02/07/20 05:19: POC Whole Blood Glucose [Pending] 02/07/20 05:25: White Blood Count 11.3H, Red Blood Count 2.57L, Hemoglobin 8.1L, Hematocrit 25.2L, Mean Corpuscular Volume 98, Mean Corpuscular Hemoglobin 31.4H, Mean Corpuscular Hemoglobin Concent 32.0, Red Cell Distribution Width 15.0H, Platelet Count 134L, Mean Platelet Volume 6.8, Neutrophils (%) (Auto) 73.6, Lymphocytes (%) (Auto) 12.8L, Monocytes (%) (Auto) 9.4, Eosinophils (%) (Auto) 2.6, Basophils (%) (Auto) 1.6, Sodium Level 133L, Potassium Level 5.7H, Chloride Level 105, Carbon Dioxide Level 24, Anion Gap 4L, Blood Urea Nitrogen 51H, Creatinine 4.3H, Estimat Glomerular Filtration Rate 14.0, Glucose Level 80, Uric Acid 5.8, Calcium Level 7.8L, Phosphorus Level 4.2, Magnesium Level 2.0, Total Bilirubin 0.4, Aspartate Amino Transf (AST/SGOT) 12L, Alanine Aminotransferase (ALT/SGPT) 14, Alkaline Phosphatase 237H, Total Protein 6.5, Albumin 1.9L, Globulin 4.6, Albumin/Globulin Ratio 0.4L Height (Feet): 5 Height (Inches): 5.00 Weight (Pounds): 110 General Appearance: no apparent distress Cardiovascular: normal rate Respiratory/Chest: decreased breath sounds Abdomen: soft Objective No change Orlin Berrios MD Feb 07, 2020 13:23
[2020-02-08] VITALS: BP 137/74
[2020-02-08 04:00] VITALS: BP 99/50
[2020-02-08 06:26] LABS: HEMATOCRIT 24.3 % (42.0-52.0); HEMOGLOBIN 7.9 G/DL (14.2-18.0); MEAN CORPUSCULAR VOLUME 97 FL (80-99); PLATELET COUNT 158 K/UL (150-450); RED BLOOD COUNT 2.52 M/UL (4.70-6.10); RED CELL DISTRIBUTION WIDTH 14.4 % (11.6-14.8); WHITE BLOOD COUNT 11.3 K/UL (4.8-10.8)
--- NOTE | 2020-02-08 06:43 | Hematology/Onc Progress Note ---
Assessment/Plan Assessment/Plan # Anemia of chronic disease - likely multifactorial, with sepsis, poorly controlled DM2, and esrd --> Anemia workup has been ordered, reviewed --> No evidence of hemolysis is noted, peripheral smear has been reviewed. --> Hgb goal >7. Transfuse prn. --> Epogen started sq --> hgb 5-->5.9-->9.4->9.7-->8.9-->8.7->8.1->7.9 ==> hold off on iron # Thrombocytopenia likely due to liver disease/cirrhosis-->resolved, also now with sepsis/pna, elev la --> Medications have been reviewed --> if the plt count less than 10k, transfuse immediately. If less than 20k and febrile, transfuse --> If less than 50k and bleeding, transfuse. If neurosurgical bleed, transfuse as well --> plt 168->128-->>>121-->134 --> us abd with cholelithiasis # Sepsis - on fluids and abxinitially for vre seosus --> iamging as needed --> Off abx # Dehydration --> per renal # Choledocholithiasis with acute cholecystitis ==> per gi, surg # Dvt ppx scds The timing of this note does not necessarily reflect the time of the patient was seen. Greatly appreciate consultation! Subjective Constitutional: Denies: no symptoms, chills, fever, malaise, weakness, other HEENT: Denies: no symptoms, eye pain, blurred vision, tearing, double vision, ear pain, ear discharge, nose pain, nose congestion, throat pain, throat swelling, mouth pain, mouth swelling, other Cardiovascular: Denies: no symptoms, chest pain, edema, irregular heart rate, lightheadedness, palpitations, syncope, other Respiratory: Denies: no symptoms, cough, shortness of breath, SOB with excertion, SOB at rest, sputum, wheezing, other Gastrointestinal/Abdominal: Denies: no symptoms, abdomen distended, abdominal pain, black stools, tarry stools, blood in stool, constipated, diarrhea, difficulty swallowing, nausea, poor appetite, poor fluid intake, rectal bleeding, vomiting, other Genitourinary: Denies: no symptoms, burning, discharge, frequency, flank pain, hematuria, incontinence, pain, urgency, other Neurologic/Psychiatric: Denies: no symptoms, anxiety, depressed, emotional problems, headache, numbness, paresthesia, pre-existing deficit, seizure, tingling, tremors, weakness, other Hematologic/Lymphatic: Denies: no symptoms, anemia, easy bleeding, easy bruising, adenopathy, other Allergies: Coded Allergies: No Known Allergies (Unverified , 04/21/18) Subjective 02/04 meds reviewed, labs noted, no bleeding, plt 121 02/05 pending labs for this am, no bleeding 02/06 labs are noted, no bleeding, hgb 8.1, hgb 11 02/07 is for hd shortly, no night sweats, meds reviewed, hgb 7.9 Objective Objective Current Medications Medications (Trade) Dose Ordered Sig/Jamal Route PRN Reason Start Time Stop Time Status Last Admin Dose Admin Acetaminophen (Tylenol) 650 mg Q6H PRN ORAL For Pain 3-6 / Fever >100.5 01/21/20 12:00 02/20/20 11:59 02/02/20 09:28 Amlodipine Besylate (Norvasc) 2.5 mg DAILY ORAL 01/22/20 09:00 02/21/20 08:59 02/06/20 08:48 Dextrose (Dextrose 50%) 25 ml Q30M PRN IV Hypoglycemia 01/21/20 12:00 04/20/20 11:59 Dextrose (Dextrose 50%) 50 ml Q30M PRN IV Hypoglycemia 01/21/20 12:00 04/20/20 11:59 02/03/20 06:59 Epoetin Andre (Epoetin Andre(ESRD on dialysis)) 10,000 unit THU-THU-THU SUBQ 01/23/20 21:00 04/22/20 20:59 02/06/20 21:02 Folic Acid (Folate) 5 mg DAILY ORAL 01/22/20 11:00 02/21/20 10:59 02/07/20 09:09 Lisinopril (ZestriL) 10 mg DAILY ORAL 01/22/20 09:00 02/21/20 08:59 02/06/20 08:48 Loperamide HCl (Imodium) 2 mg TIDPRN PRN ORAL Diarrhea 01/23/20 09:45 02/22/20 09:44 02/06/20 14:43 Ondansetron HCl (Zofran) 4 mg Q6H PRN IVP Nausea & Vomiting 01/21/20 12:00 02/20/20 11:59 Pantoprazole (Protonix) 40 mg DAILY ORAL 01/22/20 09:00 02/21/20 08:59 02/07/20 09:09 Tamsulosin HCl (Flomax) 0.4 mg BID ORAL 01/21/20 18:00 02/20/20 17:59 02/07/20 17:28 Last 24 Hour Vital Signs Date Time Temp Pulse Resp B/P (MAP) Pulse Ox O2 Delivery O2 Flow Rate FiO2 02/08/20 04:00 98.2 78 17 99/50 (66) 95 02/08/20 00:00 98.4 93 17 137/74 (95) 94 02/07/20 21:00 Room Air 02/07/20 20:00 98.3 89 17 117/67 (84) 95 02/07/20 16:00 98.0 73 18 119/69 (86) 97 02/07/20 12:01 97.5 88 18 126/70 (88) 95 02/07/20 12:00 96.4 70 17 118/74 (89) 100 02/07/20 09:00 Room Air 02/07/20 08:00 98.1 82 18 115/65 (82) 93 02/07/20 04:00 98.1 90 18 118/65 (82) 97 02/07/20 00:00 97.9 94 18 114/62 (79) 92 02/06/20 20:42 Room Air 02/06/20 20:00 97.8 90 18 113/53 (73) 92 02/06/20 16:00 98.0 87 18 123/67 (85) 97 02/06/20 12:00 97.3 81 18 140/76 (97) 96 02/06/20 08:48 89 115/61 02/06/20 08:48 115/61 02/06/20 08:00 97.5 89 18 115/61 (79) 97 Intake and Output 02/07/20 02/08/20 19:00 07:00 Intake Total 1100 ml 450 ml Output Total 600 ml 700 ml Balance 500 ml -250 ml Intake Oral 500 ml 450 ml Other 600 ml Output Urine Total 600 ml Hemodialysis UF 700 ml # Voids 3 # Bowel Movements 4 2 Labs Test 02/05/20 07:25 02/05/20 12:09 02/05/20 12:29 02/05/20 17:01 White Blood Count 8.3 K/UL (4.8-10.8) Red Blood Count 2.59 M/UL (4.70-6.10) Hemoglobin 8.1 G/DL (14.2-18.0) Hematocrit 25.1 % (42.0-52.0) Mean Corpuscular Volume 97 FL (80-99) Mean Corpuscular Hemoglobin 31.3 PG (27.0-31.0) Mean Corpuscular Hemoglobin Concent 32.4 G/DL (32.0-36.0) Red Cell Distribution Width 14.8 % (11.6-14.8) Platelet Count 121 K/UL (150-450) Mean Platelet Volume 5.8 FL (6.5-10.1) Neutrophils (%) (Auto) 78.7 % (45.0-75.0) Lymphocytes (%) (Auto) 12.4 % (20.0-45.0) Monocytes (%) (Auto) 4.5 % (1.0-10.0) Eosinophils (%) (Auto) 2.2 % (0.0-3.0) Basophils (%) (Auto) 2.3 % (0.0-2.0) Sodium Level 137 MMOL/L (136-145) Potassium Level 4.0 MMOL/L (3.5-5.1) Chloride Level 104 MMOL/L (98-107) Carbon Dioxide Level 26 MMOL/L (21-32) Anion Gap 7 mmol/L (5-15) Blood Urea Nitrogen 27 mg/dL (7-18) Creatinine 2.8 MG/DL (0.55-1.30) Estimat Glomerular Filtration Rate 22.9 mL/min (>60) Glucose Level 74 MG/DL (74-106) Calcium Level 6.4 MG/DL (8.5-10.1) Phosphorus Level 3.0 MG/DL (2.5-4.9) Total Bilirubin 0.4 MG/DL (0.2-1.0) Aspartate Amino Transf (AST/SGOT) 16 U/L (15-37) Alanine Aminotransferase (ALT/SGPT) 12 U/L (12-78) Alkaline Phosphatase 173 U/L (46-116) Total Protein 6.1 G/DL (6.4-8.2) Albumin 1.8 G/DL (3.4-5.0) Globulin 4.3 g/dL Albumin/Globulin Ratio 0.4 (1.0-2.7) POC Whole Blood Glucose 67 MG/DL (74-106) 62 MG/DL (74-106) 72 MG/DL (74-106) Test 02/05/20 20:02 02/06/20 05:28 02/06/20 05:54 02/06/20 12:31 POC Whole Blood Glucose 110 MG/DL (74-106) 64 MG/DL (74-106) 87 MG/DL (74-106) 113 MG/DL (74-106) Test 02/06/20 17:06 02/07/20 05:19 02/07/20 05:25 02/07/20 11:54 POC Whole Blood Glucose 124 MG/DL (74-106) 129 MG/DL (74-106) White Blood Count 11.3 K/UL (4.8-10.8) Red Blood Count 2.57 M/UL (4.70-6.10) Hemoglobin 8.1 G/DL (14.2-18.0) Hematocrit 25.2 % (42.0-52.0) Mean Corpuscular Volume 98 FL (80-99) Mean Corpuscular Hemoglobin 31.4 PG (27.0-31.0) Mean Corpuscular Hemoglobin Concent 32.0 G/DL (32.0-36.0) Red Cell Distribution Width 15.0 % (11.6-14.8) Platelet Count 134 K/UL (150-450) Mean Platelet Volume 6.8 FL (6.5-10.1) Neutrophils (%) (Auto) 73.6 % (45.0-75.0) Lymphocytes (%) (Auto) 12.8 % (20.0-45.0) Monocytes (%) (Auto) 9.4 % (1.0-10.0) Eosinophils (%) (Auto) 2.6 % (0.0-3.0) Basophils (%) (Auto) 1.6 % (0.0-2.0) Sodium Level 133 MMOL/L (136-145) Potassium Level 5.7 MMOL/L (3.5-5.1) Chloride Level 105 MMOL/L (98-107) Carbon Dioxide Level 24 MMOL/L (21-32) Anion Gap 4 mmol/L (5-15) Blood Urea Nitrogen 51 mg/dL (7-18) Creatinine 4.3 MG/DL (0.55-1.30) Estimat Glomerular Filtration Rate 14.0 mL/min (>60) Glucose Level 80 MG/DL (74-106) Uric Acid 5.8 MG/DL (2.6-7.2) Calcium Level 7.8 MG/DL (8.5-10.1) Phosphorus Level 4.2 MG/DL (2.5-4.9) Magnesium Level 2.0 MG/DL (1.8-2.4) Total Bilirubin 0.4 MG/DL (0.2-1.0) Aspartate Amino Transf (AST/SGOT) 12 U/L (15-37) Alanine Aminotransferase (ALT/SGPT) 14 U/L (12-78) Alkaline Phosphatase 237 U/L (46-116) Total Protein 6.5 G/DL (6.4-8.2) Albumin 1.9 G/DL (3.4-5.0) Globulin 4.6 g/dL Albumin/Globulin Ratio 0.4 (1.0-2.7) Test 02/07/20 16:39 02/07/20 21:05 02/08/20 05:20 02/08/20 05:35 POC Whole Blood Glucose 138 MG/DL (74-106) 209 MG/DL (74-106) 78 MG/DL (74-106) White Blood Count 11.3 K/UL (4.8-10.8) Red Blood Count 2.52 M/UL (4.70-6.10) Hemoglobin 7.9 G/DL (14.2-18.0) Hematocrit 24.3 % (42.0-52.0) Mean Corpuscular Volume 97 FL (80-99) Mean Corpuscular Hemoglobin 31.5 PG (27.0-31.0) Mean Corpuscular Hemoglobin Concent 32.6 G/DL (32.0-36.0) Red Cell Distribution Width 14.4 % (11.6-14.8) Platelet Count 158 K/UL (150-450) Mean Platelet Volume 6.8 FL (6.5-10.1) Neutrophils (%) (Auto) % (45.0-75.0) Lymphocytes (%) (Auto) % (20.0-45.0) Monocytes (%) (Auto) % (1.0-10.0) Eosinophils (%) (Auto) % (0.0-3.0) Basophils (%) (Auto) % (0.0-2.0) Height (Feet): 5 Height (Inches): 5.00 Weight (Pounds): 110 Objective Physical Exam: Vitals: reviewed General: NAD HEENT: nc, at Neck: supple Chest: clear breath sounds bilaterally Cardiovascular: RRR, no s3, s4 Abdomen: soft, nontender, nd Extremities: no cce, normal range of motion Neuro: alert and oriented Guero Hernandez MD Feb 08, 2020 06:43
[2020-02-08 08:00] VITALS: BP 107/56
[2020-02-08] MEDS: Lisinopril 10mg tab ORAL SCH (08:44)
[2020-02-08] MEDS: Tamsulosin 0.4mg cap ORAL SCH (08:44)
--- NOTE | 2020-02-08 10:00 | Pulmonology Progress Note ---
Subjective ROS Limited/Unobtainable: No Interval Events: None new Constitutional: Denies: fever, chills HEENT: Repors: no symptoms Respiratory: Reports: no symptoms Cardiovascular: Reports: no symptoms Gastrointestinal/Abdominal: Reports: diarrhea - decreased; Denies: nausea, vomiting Musculoskeletal: Reports: pain Allergies: Coded Allergies: No Known Allergies (Unverified , 04/21/18) Objective Last 24 Hour Vital Signs Date Time Temp Pulse Resp B/P (MAP) Pulse Ox O2 Delivery O2 Flow Rate FiO2 02/08/20 08:44 80 107/56 02/08/20 08:44 107/56 02/08/20 08:00 99.1 80 20 107/56 (73) 95 02/08/20 04:00 98.2 78 17 99/50 (66) 95 02/08/20 00:00 98.4 93 17 137/74 (95) 94 02/07/20 21:00 Room Air 02/07/20 20:00 98.3 89 17 117/67 (84) 95 02/07/20 16:00 98.0 73 18 119/69 (86) 97 02/07/20 12:01 97.5 88 18 126/70 (88) 95 02/07/20 12:00 96.4 70 17 118/74 (89) 100 Intake and Output 02/07/20 02/08/20 19:00 07:00 Intake Total 1100 ml 450 ml Output Total 600 ml 700 ml Balance 500 ml -250 ml Intake Oral 500 ml 450 ml Other 600 ml Output Urine Total 600 ml Hemodialysis UF 700 ml # Voids 3 2 # Bowel Movements 4 2 General Appearance: no acute distress HEENT: normocephalic Respiratory: chest wall non-tender, lungs clear Cardiovascular: normal peripheral pulses, normal rate Abdomen: normal bowel sounds, soft, non tender Extremities: no cyanosis Laboratory Tests 02/07/20 11:54: POC Whole Blood Glucose 129H 02/07/20 16:39: POC Whole Blood Glucose 138H 02/07/20 21:05: POC Whole Blood Glucose 209H 02/08/20 05:20: White Blood Count 11.3H, Red Blood Count 2.52L, Hemoglobin 7.9L, Hematocrit 24.3L, Mean Corpuscular Volume 97, Mean Corpuscular Hemoglobin 31.5H, Mean Corpuscular Hemoglobin Concent 32.6, Red Cell Distribution Width 14.4, Platelet Count 158, Mean Platelet Volume 6.8, Neutrophils (%) (Auto) , Lymphocytes (%) (Auto) , Monocytes (%) (Auto) , Eosinophils (%) (Auto) , Basophils (%) (Auto) , Differential Total Cells Counted 100, Neutrophils % (Manual) 74, Lymphocytes % (Manual) 13L, Monocytes % (Manual) 9, Eosinophils % (Manual) 4H, Basophils % (Manual) 0, Band Neutrophils 0, Platelet Estimate Adequate, Platelet Morphology Normal, Anisocytosis 1+, Sodium Level [Pending], Potassium Level [Pending], Chloride Level [Pending], Carbon Dioxide Level [Pending], Blood Urea Nitrogen [Pending], Creatinine [Pending], Estimat Glomerular Filtration Rate [Pending], Glucose Level [Pending], Calcium Level [Pending], Phosphorus Level [Pending], Magnesium Level [Pending], Total Bilirubin [Pending], Aspartate Amino Transf (AST/SGOT) [Pending], Alanine Aminotransferase (ALT/SGPT) [Pending], Alkaline Phosphatase [Pending], Total Protein [Pending], Albumin [Pending], Globulin [Pending] 02/08/20 05:35: POC Whole Blood Glucose 78 Current Medications Medications (Trade) Dose Ordered Sig/Jamal Route PRN Reason Start Time Stop Time Status Last Admin Dose Admin Acetaminophen (Tylenol) 650 mg Q6H PRN ORAL For Pain 3-6 / Fever >100.5 01/21/20 12:00 02/20/20 11:59 02/02/20 09:28 Amlodipine Besylate (Norvasc) 2.5 mg DAILY ORAL 01/22/20 09:00 02/21/20 08:59 02/08/20 08:44 Dextrose (Dextrose 50%) 25 ml Q30M PRN IV Hypoglycemia 01/21/20 12:00 04/20/20 11:59 Dextrose (Dextrose 50%) 50 ml Q30M PRN IV Hypoglycemia 01/21/20 12:00 04/20/20 11:59 02/03/20 06:59 Epoetin Andre (Epoetin Andre(ESRD on dialysis)) 10,000 unit THU-THU-THU SUBQ 01/23/20 21:00 04/22/20 20:59 02/06/20 21:02 Folic Acid (Folate) 5 mg DAILY ORAL 01/22/20 11:00 02/21/20 10:59 02/08/20 08:44 Lisinopril (ZestriL) 10 mg DAILY ORAL 01/22/20 09:00 02/21/20 08:59 02/08/20 08:44 Loperamide HCl (Imodium) 2 mg TIDPRN PRN ORAL Diarrhea 01/23/20 09:45 02/22/20 09:44 02/06/20 14:43 Ondansetron HCl (Zofran) 4 mg Q6H PRN IVP Nausea & Vomiting 01/21/20 12:00 02/20/20 11:59 Pantoprazole (Protonix) 40 mg DAILY ORAL 01/22/20 09:00 02/21/20 08:59 02/08/20 08:44 Tamsulosin HCl (Flomax) 0.4 mg BID ORAL 01/21/20 18:00 02/20/20 17:59 02/08/20 08:44 Assessment/Plan Assessment/Plan IMPRESSION: 1. Mild pulmonary edema. 2. Hyperkalemia. 3. ESRD, on dialysis. 4. Hypertension. 5. Toxic-metabolic encephalopathy. DISCUSSION: Await completion of dc arrangements Continue oxygen prn only; currently on RA I will follow. Nataliya Mclaughlin Omar Syed MD Feb 08, 2020 10:00
[2020-02-08 10:08] LABS: ALBUMIN 2.1 G/DL (3.4-5.0); ALBUMIN/GLOBULIN RATIO 0.5 (1.0-2.7); BILIRUBIN,TOTAL 0.3 MG/DL (0.2-1.0); CREATININE 2.9 MG/DL (0.55-1.30); PHOSPHORUS 2.6 MG/DL (2.5-4.9); POTASSIUM 3.9 MMOL/L (3.5-5.1)
[2020-02-08 10:12] LABS: CALCIUM 5.5 MG/DL (8.5-10.1)
--- NOTE | 2020-02-08 11:32 | Nephrology Progress Note ---
Assessment/Plan Problem List: (1) Hyperkalemia (2) JONA (acute kidney injury) (3) Failure to thrive in adult (4) Anemia (5) Malnutrition Assessment: BMI 18.3 Assessment 1) JONA (acute kidney injury) (2) Hyperkalemia (3) Anemia (4) Metabolic acidosis (5) Ureter obstruction (6) Failure to thrive, BMI 18 Plan February 07: Dialyzed yesterday. Today's labs reviewed. Calcium low. 1 g calcium gluconate IV ordered. Continue per current management. February 06: Due for dialysis today. Labs reviewed. Medication list reviewed. Continue per PMD and consultants. February 05: Dialyzed February 03. Status quo. Continue current management. Dialysis for tomorrow February 06. February 04: Dialyzed yesterday. Status quo. Labs reviewed. Continue per consultants. February 03: Due for dialysis today. Labs reviewed. Continue per current management. February 02: Last dialyzed January 31. Next dialysis for February 03. Continue per consultants. February 01: Dialyzed yesterday. Due for dialysis next 1 to 2 days. Blood cultures negative. Per consultants. Discharge planning. January 31: Due for dialysis today. No labs drawn today. Blood cultures for the past 4 days has been negative. Discharge planning in process. January 30: Dialyzed yesterday. Labs are reviewed. Due for dialysis tomorrow. Blood culture from January 26 - after 72 hours. Continue discharge planning. January 29: Due for dialysis today. Today's lab pending. Medication list reviewed. Surveillance blood culture ordered during hemodialysis today January 28: Status quo. Was dialyzed yesterday. Due for dialysis tomorrow. We will continue to monitor chemistries. Medication list reviewed. January 27: Status quo. Due for dialysis today. Medication list reviewed. Outpatient dialysis upon discharge. January 26: Status quo. Was dialyzed yesterday, dialysis again tomorrow. Continue current management. Outpatient dialysis upon discharge. January 25: Status quo. Due for dialysis today. Continue current management. January 24: Status quo. Dialysis tomorrow. Waiting for outpatient dialysis unit placement. January 23: Patient doing well. Labs reviewed. No blood work is available for today. Medication list reviewed. Will continue to dialysis as needed. Process of discharge and outpatient dialysis unit placement. January 22: Dialyzed yesterday. Today's labs reviewed. Medications reviewed. Outpatient dialysis unit placement to be processed. January 21: More Kayexalate for hyperkalemia. Due for dialysis today. Renal diet. Keep the blood pressure in check. Patient advised to be compliant through a senior reservoir engineer. Folic acid p.o. initiated Subjective ROS Limited/Unobtainable: No Constitutional: Reports: malaise Objective Objective Last 24 Hour Vital Signs Date Time Temp Pulse Resp B/P (MAP) Pulse Ox O2 Delivery O2 Flow Rate FiO2 02/08/20 08:44 80 107/56 02/08/20 08:44 107/56 02/08/20 08:00 99.1 80 20 107/56 (73) 95 02/08/20 04:00 98.2 78 17 99/50 (66) 95 02/08/20 00:00 98.4 93 17 137/74 (95) 94 02/07/20 21:00 Room Air 02/07/20 20:00 98.3 89 17 117/67 (84) 95 02/07/20 16:00 98.0 73 18 119/69 (86) 97 02/07/20 12:01 97.5 88 18 126/70 (88) 95 02/07/20 12:00 96.4 70 17 118/74 (89) 100 Intake and Output 02/07/20 02/08/20 19:00 07:00 Intake Total 1100 ml 450 ml Output Total 600 ml 700 ml Balance 500 ml -250 ml Intake Oral 500 ml 450 ml Other 600 ml Output Urine Total 600 ml Hemodialysis UF 700 ml # Voids 3 2 # Bowel Movements 4 2 Current Medications Medications (Trade) Dose Ordered Sig/Jamal Route PRN Reason Start Time Stop Time Status Last Admin Dose Admin Acetaminophen (Tylenol) 650 mg Q6H PRN ORAL For Pain 3-6 / Fever >100.5 01/21/20 12:00 02/20/20 11:59 02/02/20 09:28 Amlodipine Besylate (Norvasc) 2.5 mg DAILY ORAL 01/22/20 09:00 02/21/20 08:59 02/08/20 08:44 Dextrose (Dextrose 50%) 25 ml Q30M PRN IV Hypoglycemia 01/21/20 12:00 04/20/20 11:59 Dextrose (Dextrose 50%) 50 ml Q30M PRN IV Hypoglycemia 01/21/20 12:00 25/21 11:59 02/03/20 06:59 Epoetin Andre (Epoetin Andre(ESRD on dialysis)) 10,000 unit SUBQ 01/23/20 21:00 04/22/20 20:59 02/06/20 21:02 Folic Acid (Folate) 5 mg DAILY ORAL 01/22/20 11:00 02/21/20 10:59 02/08/20 08:44 Lisinopril (ZestriL) 10 mg DAILY ORAL 01/22/20 09:00 02/21/20 08:59 02/08/20 08:44 Loperamide HCl (Imodium) 2 mg TIDPRN PRN ORAL Diarrhea 01/23/20 09:45 02/22/20 09:44 02/06/20 14:43 Ondansetron HCl (Zofran) 4 mg Q6H PRN IVP Nausea & Vomiting 01/21/20 12:00 02/20/20 11:59 Pantoprazole (Protonix) 40 mg DAILY ORAL 01/22/20 09:00 02/21/20 08:59 02/08/20 08:44 Tamsulosin HCl (Flomax) 0.4 mg BID ORAL 01/21/20 18:00 02/20/20 17:59 02/08/20 08:44 Laboratory Tests 02/07/20 11:54: POC Whole Blood Glucose 129H 02/07/20 16:39: POC Whole Blood Glucose 138H 02/07/20 21:05: POC Whole Blood Glucose 209H 02/08/20 05:20: White Blood Count 11.3H, Red Blood Count 2.52L, Hemoglobin 7.9L, Hematocrit 24.3L, Mean Corpuscular Volume 97, Mean Corpuscular Hemoglobin 31.5H, Mean Corpuscular Hemoglobin Concent 32.6, Red Cell Distribution Width 14.4, Platelet Count 158, Mean Platelet Volume 6.8, Neutrophils (%) (Auto) , Lymphocytes (%) (Auto) , Monocytes (%) (Auto) , Eosinophils (%) (Auto) , Basophils (%) (Auto) , Differential Total Cells Counted 100, Neutrophils % (Manual) 74, Lymphocytes % (Manual) 13L, Monocytes % (Manual) 9, Eosinophils % (Manual) 4H, Basophils % (Manual) 0, Band Neutrophils 0, Platelet Estimate Adequate, Platelet Morphology Normal, Anisocytosis 1+, Sodium Level 136, Potassium Level 3.9, Chloride Level 104, Carbon Dioxide Level 25, Anion Gap 7, Blood Urea Nitrogen 35H, Creatinine 2.9H, Estimat Glomerular Filtration Rate 22.0, Glucose Level 87, Calcium Level 5.5#*L, Phosphorus Level 2.6, Magnesium Level 2.0, Total Bilirubin 0.3, Aspartate Amino Transf (AST/SGOT) 17, Alanine Aminotransferase (ALT/SGPT) 17, Alkaline Phosphatase 268H, Total Protein 6.4, Albumin 2.1L, Globulin 4.3, Albumin/Globulin Ratio 0.5L 02/08/20 05:35: POC Whole Blood Glucose 78 Height (Feet): 5 Height (Inches): 5.00 Weight (Pounds): 110 General Appearance: no apparent distress, lethargic Objective No change Orlin Berrios MD Feb 08, 2020 11:32
--- NOTE | 2020-02-08 11:32 | Infectious Diseases Prog Note ---
Assessment/Plan Assessment/Plan antibiotics : none A 1. VRE sepsis s/p rx 2. pneumonia 2. diabetes mellitus 4. hypertension 5. renal failure on HD 6. VRE UTI s/p rx P 1. continue off antibiotics 2. stool for c.diff 3. will follow up cultures Subjective Constitutional: Denies: fever, chills Respiratory: Denies: shortness of breath, dry cough Gastrointestinal/Abdominal: Reports: diarrhea - mild; Denies: nausea, vomiting Musculoskeletal: Denies: pain Allergies: Coded Allergies: No Known Allergies (Unverified , 04/21/18) Objective Last 24 Hour Vital Signs Date Time Temp Pulse Resp B/P (MAP) Pulse Ox O2 Delivery O2 Flow Rate FiO2 02/08/20 08:44 80 107/56 02/08/20 08:44 107/56 02/08/20 08:00 99.1 80 20 107/56 (73) 95 02/08/20 04:00 98.2 78 17 99/50 (66) 95 02/08/20 00:00 98.4 93 17 137/74 (95) 94 02/07/20 21:00 Room Air 02/07/20 20:00 98.3 89 17 117/67 (84) 95 02/07/20 16:00 98.0 73 18 119/69 (86) 97 02/07/20 12:01 97.5 88 18 126/70 (88) 95 02/07/20 12:00 96.4 70 17 118/74 (89) 100 Height (Feet): 5 Height (Inches): 5.00 Weight (Pounds): 110 Respiratory/Chest: lungs clear Cardiovascular: normal rate, regular rhythm, no gallop/murmur Abdomen: soft, non tender Extremities: no edema, other - right subclavian catheter Laboratory Tests Test 02/07/20 11:54 02/07/20 16:39 02/07/20 21:05 02/08/20 05:20 POC Whole Blood Glucose 129 MG/DL (74-106) H 138 MG/DL (74-106) H 209 MG/DL (74-106) H White Blood Count 11.3 K/UL (4.8-10.8) H Red Blood Count 2.52 M/UL (4.70-6.10) L Hemoglobin 7.9 G/DL (14.2-18.0) L Hematocrit 24.3 % (42.0-52.0) L Mean Corpuscular Volume 97 FL (80-99) Mean Corpuscular Hemoglobin 31.5 PG (27.0-31.0) H Mean Corpuscular Hemoglobin Concent 32.6 G/DL (32.0-36.0) Red Cell Distribution Width 14.4 % (11.6-14.8) Platelet Count 158 K/UL (150-450) Mean Platelet Volume 6.8 FL (6.5-10.1) Neutrophils (%) (Auto) % (45.0-75.0) Lymphocytes (%) (Auto) % (20.0-45.0) Monocytes (%) (Auto) % (1.0-10.0) Eosinophils (%) (Auto) % (0.0-3.0) Basophils (%) (Auto) % (0.0-2.0) Differential Total Cells Counted 100 Neutrophils % (Manual) 74 % (45-75) Lymphocytes % (Manual) 13 % (20-45) L Monocytes % (Manual) 9 % (1-10) Eosinophils % (Manual) 4 % (0-3) H Basophils % (Manual) 0 % (0-2) Band Neutrophils 0 % (0-8) Platelet Estimate Adequate Platelet Morphology Normal Anisocytosis 1+ Sodium Level 136 MMOL/L (136-145) Potassium Level 3.9 MMOL/L (3.5-5.1) Chloride Level 104 MMOL/L (98-107) Carbon Dioxide Level 25 MMOL/L (21-32) Anion Gap 7 mmol/L (5-15) Blood Urea Nitrogen 35 mg/dL (7-18) H Creatinine 2.9 MG/DL (0.55-1.30) H Estimat Glomerular Filtration Rate 22.0 mL/min (>60) Glucose Level 87 MG/DL (74-106) Calcium Level 5.5 MG/DL (8.5-10.1) #*L Phosphorus Level 2.6 MG/DL (2.5-4.9) Magnesium Level 2.0 MG/DL (1.8-2.4) Total Bilirubin 0.3 MG/DL (0.2-1.0) Aspartate Amino Transf (AST/SGOT) 17 U/L (15-37) Alanine Aminotransferase (ALT/SGPT) 17 U/L (12-78) Alkaline Phosphatase 268 U/L (46-116) H Total Protein 6.4 G/DL (6.4-8.2) Albumin 2.1 G/DL (3.4-5.0) L Globulin 4.3 g/dL Albumin/Globulin Ratio 0.5 (1.0-2.7) L Test 02/08/20 05:35 POC Whole Blood Glucose 78 MG/DL (74-106) Current Medications Medications (Trade) Dose Ordered Sig/Jamal Route PRN Reason Start Time Stop Time Status Last Admin Dose Admin Acetaminophen (Tylenol) 650 mg Q6H PRN ORAL For Pain 3-6 / Fever >100.5 01/21/20 12:00 02/20/20 11:59 02/02/20 09:28 Amlodipine Besylate (Norvasc) 2.5 mg DAILY ORAL 01/22/20 09:00 02/21/20 08:59 02/08/20 08:44 Dextrose (Dextrose 50%) 25 ml Q30M PRN IV Hypoglycemia 01/21/20 12:00 04/20/20 11:59 Dextrose (Dextrose 50%) 50 ml Q30M PRN IV Hypoglycemia 01/21/20 12:00 04/20/20 11:59 02/03/20 06:59 Epoetin Andre (Epoetin Andre(ESRD on dialysis)) 10,000 unit [id number] SUBQ 01/23/20 21:00 04/22/20 20:59 02/06/20 21:02 Folic Acid (Folate) 5 mg DAILY ORAL 01/22/20 11:00 02/21/20 10:59 02/08/20 08:44 Lisinopril (ZestriL) 10 mg DAILY ORAL 01/22/20 09:00 02/21/20 08:59 02/08/20 08:44 Loperamide HCl (Imodium) 2 mg TIDPRN PRN ORAL Diarrhea 01/23/20 09:45 02/22/20 09:44 02/06/20 14:43 Ondansetron HCl (Zofran) 4 mg Q6H PRN IVP Nausea & Vomiting 01/21/20 12:00 02/20/20 11:59 Pantoprazole (Protonix) 40 mg DAILY ORAL 01/22/20 09:00 02/21/20 08:59 02/08/20 08:44 Tamsulosin HCl (Flomax) 0.4 mg BID ORAL 01/21/20 18:00 02/20/20 17:59 02/08/20 08:44 Paolo Napier MD Feb 08, 2020 11:32
[2020-02-08 12:00] VITALS: BP 116/63
[2020-02-08] MEDS ORDERED: Calcium Gluconate 1gm/50ml 50 ML IVPB SCH (14:00)
--- NOTE | 2020-02-09 00:44 | Discharge Summary ---
DATE OF ADMISSION: 01/21/2020 DATE OF DISCHARGE: 02/08/2020 HISTORY OF PRESENT ILLNESS: This is an elderly 64-year-old male came from home with generalized weakness, dehydration, end-stage renal disease, on hemodialysis, and diabetes. The patient did very well. He was dialyzed today. He also received antibiotic. He is going to go back to [facility]. DISCHARGE DIAGNOSES: 1. Chronic renal failure. 2. On hemodialysis. 3. Hypertension. 4. Diabetes. 5. Generalized weakness going to go to [facility] for physical therapy. Continue hemodialysis as outpatient. Alex Allan M.D. DR: Christoph JOB#: [id number] CC:
== END 2020-02-08 13:46 | DRG 720 ==
LOC: EDUNIT# 02:00 → EDBD 02:00 → EMR 02:33 → EDBEDREQSVC 03:33 → 2E 03:46 → OBSVTOIN 03:46 → 2E 03:46 → UNDOADMIN 03:46 → EDBEDREQ 04:35 → 4E 01-22 20:30
PROC: 5A1D70Z Performance of Urinary Filtration, Intermittent, Less than 6 Hours Per Day (ICD-10-PCS; principal; 2020-01-21)
DX: A41.81 Sepsis due to Enterococcus (principal); N18.6 End stage renal disease; I12.0 Hypertensive chronic kidney disease with stage 5 chronic kidney disease or end stage renal disease; J15.8 Pneumonia due to other specified bacteria; E43 Unspecified severe protein-calorie malnutrition; N39.0 Urinary tract infection, site not specified; E11.22 Type 2 diabetes mellitus with diabetic chronic kidney disease; E87.5 Hyperkalemia; Z68.1 Body mass index [BMI] 19.9 or less, adult; N13.2 Hydronephrosis with renal and ureteral calculous obstruction; Z16.21 Resistance to vancomycin; G92 Toxic encephalopathy; N17.9 Acute kidney failure, unspecified; R19.7 Diarrhea, unspecified; Z99.2 Dependence on renal dialysis; Z99.3 Dependence on wheelchair; D69.6 Thrombocytopenia, unspecified; K74.60 Unspecified cirrhosis of liver; E86.0 Dehydration; K80.42 Calculus of bile duct with acute cholecystitis without obstruction; Z20.828 Contact with and (suspected) exposure to other viral communicable diseases; D63.1 Anemia in chronic kidney disease
CPT/HCPCS: 36415; 71045; 80048; 80053; 80061; 80202; 81001; 82140; 82607; 82728; 82746; 82962; 82977; 83036; 83540; 83550; 83735; 83880; 84100; 84443; 84484; 84550; 85007; 85025; 86140; 86850; 86900; 86901; 86920; 87040; 87081; 87086; 87181; 87324; 87340; 93005; 96374; 96375; 96376; 99291; J1815; S5561; U0002